=== PATIENT | female | born 1975 | race Caucasian/White ===

== ENCOUNTER 2023-07-26 15:18 | Outpatient (OUT) | payer OTHER, SELFPAY ==
[2023-07-26 15:53] LABS: Hematocrit 40.6 % (36.0-48.0); Hemoglobin 13.1 g/dL (12.0-16.0); Mean Corpuscular HGB Conc 32.3 g/dL (29.9-35.2); Mean Corpuscular Hemoglobin 28.5 pg (26.7-34.0); Mean Corpuscular Volume 88.5 fL (81.0-99.0); Mean Platelet Volume 9.3 fL (9.5-13.5); Platelet Count 482 10^3/uL (150-450); Red Blood Count 4.59 10^6/uL (4.20-5.40); Red Cell Distribution Width 14.2 % (11.0-15.0); White Blood Count 13.8 10^3/uL (4.0-11.0)
[2023-07-26 16:23] LABS: Bilirubin Urine NEGATIVE (NEGATIVE); Blood Urine LARGE (NEGATIVE); Clarity Urine CLOUDY (CLEAR); Color Urine DK. ORANGE (YELLOW); Glucose Urine UA NEGATIVE (NEGATIVE); Ketones Urine TRACE mg/dL (NEGATIVE); Leukocyte Esterase Urine TRACE (NEGATIVE); Nitrite Urine NEGATIVE (NEGATIVE); Protein Urine 30 mg/dL (NEG/TRACE); Specific Gravity Urine >=1.030 (1.005-1.025)
[2023-07-26 16:24] LABS: Atypical Lymphocytes Abs Man 0.69; Eosinophils Absolute Manual 0.41 10^3/uL (0.00-0.70); Monocytes Absolute Manual 0.41 10^3/uL (0.30-0.80); Segmented Neut Absolute Manual 7.17 10^3/uL (1.4-6.5)
[2023-07-26 16:25] LABS: Urine Microscopic Indicated YES
[2023-07-26 16:27] LABS: Estimated Average Glucose 126 mg/dL
[2023-07-26 16:36] LABS: Creatinine Urine Random 229.13 mg/dL (20.00-300.00); Microalbum Creatinine Ratio Ur 51.9 mg/g (0.0-29.9); Microalbumin Urine Random 11.9 mg/dL (<=30.0)
[2023-07-26 16:46] LABS: Alanine Aminotransferase 38 U/L (14-59); Albumin Globulin Ratio 1.1; Albumin Level 4.2 g/dL (3.4-5.0); Alkaline Phosphatase 122 U/L (46-116); Anion Gap 14.9; Aspartate Amino Transferase 28 U/L (15-37); Bilirubin Total 0.3 mg/dL (0.2-1.0); Calcium 9.8 mg/dL (8.5-10.1); Carbon Dioxide 23.1 mmol/L (21.0-32.0); Chloride 102 mmol/L (98-107); Chol HDL Ratio 6.1; Cholesterol 257 mg/dL (<=200); Estimated GFR (African America >60 (>=60); Estimated GFR (Non-African Ame >60 (>=60); Globulin 3.9 g/dL; Glucose 81 mg/dL (74-106); HDL Cholesterol 42 mg/dL (40-60); Sodium 136 mmol/L (136-145); Thyroid Stimulating Hormone 0.924 uIU/mL (0.358-3.740); Total Protein 8.1 g/dL (6.4-8.2); Triglycerides 216 mg/dL (<=150); VLDL CHOLESTEROL 43.2 mg/dL
[2023-07-26 16:50] LABS: Bacteria Urine TRACE #/HPF (NONE SEEN); Cast Seen? NONE SEEN #/LPF (NONE SEEN); Crystals Seen? None Seen #/HPF (None Seen); Mucus Urine NONE SEEN (NONE SEEN); RBC Urine 50-75 #/HPF (0-2); Squamous Epithelial Cell Urine RARE #/LPF (NONE/RARE)
== END 2023-07-26 15:19 | disposition home or self-care (01) ==
LOC: LAB 15:21
PROVIDERS: PCP Nurse Practitioner; Visit Provider Nurse Practitioner
DX: D64.9 Anemia, unspecified (principal); I10 Essential (primary) hypertension; F17.200 Nicotine dependence, unspecified, uncomplicated; E53.8 Deficiency of other specified B group vitamins; K21.9 Gastro-esophageal reflux disease without esophagitis; E55.9 Vitamin D deficiency, unspecified; E11.9 Type 2 diabetes mellitus without complications; F41.9 Anxiety disorder, unspecified
CPT/HCPCS: 36415; 80053; 80061; 81001; 82043; 82570; 82607; 83036; 83540; 84443; 85007; 85027

== ENCOUNTER 2023-09-17 16:43 | Outpatient (OUT) | payer OTHER, SELFPAY ==
[2023-09-17 17:06] LABS: Bilirubin Urine NEGATIVE (NEGATIVE); Blood Urine LARGE (NEGATIVE); Clarity Urine CLEAR (CLEAR); Color Urine LT. YELLOW (YELLOW); Glucose Urine UA NEGATIVE (NEGATIVE); Ketones Urine NEGATIVE (NEGATIVE); Leukocyte Esterase Urine SMALL (NEGATIVE); Nitrite Urine NEGATIVE (NEGATIVE); Protein Urine NEGATIVE (NEG/TRACE); Urobilinogen Urine 0.2 EU/dL (0.2-1.0)
[2023-09-17 17:21] LABS: Urine Microscopic Indicated YES
[2023-09-17 17:22] LABS: Bacteria Urine TRACE #/HPF (NONE SEEN); Cast Seen? NONE SEEN #/LPF (NONE SEEN); Crystals Seen? None Seen #/HPF (None Seen); Mucus Urine TRACE (NONE SEEN); RBC Urine 20-50 #/HPF (0-2); Squamous Epithelial Cell Urine FEW #/LPF (NONE/RARE); Urine Culture Indicated YES
[2023-09-17 17:38] LABS: Alanine Aminotransferase 21 U/L (14-59); Albumin Globulin Ratio 0.9; Albumin Level 3.6 g/dL (3.4-5.0); Alkaline Phosphatase 132 U/L (46-116); Anion Gap 15.4; Aspartate Amino Transferase 14 U/L (15-37); BUN Creatinine Ratio 12.1; Bilirubin Total 0.2 mg/dL (0.2-1.0); Calcium 9.2 mg/dL (8.5-10.1); Carbon Dioxide 23.1 mmol/L (21.0-32.0); Chloride 103 mmol/L (98-107); Cholesterol 184 mg/dL (<=200); Estimated GFR (African America >60 (>=60); Estimated GFR (Non-African Ame >60 (>=60); Glucose 143 mg/dL (74-106); HDL Cholesterol 37 mg/dL (40-60); Potassium 3.5 mmol/L (3.5-5.1); Sodium 138 mmol/L (136-145); Total Protein 7.6 g/dL (6.4-8.2); Triglycerides 166 mg/dL (<=150); VLDL CHOLESTEROL 33.2 mg/dL
== END 2023-09-17 16:44 | disposition home or self-care (01) ==
LOC: LAB 16:45
PROVIDERS: PCP Nurse Practitioner; Visit Provider Nurse Practitioner
DX: R31.29 Other microscopic hematuria (principal); E78.2 Mixed hyperlipidemia
CPT/HCPCS: 36415; 80053; 80061; 81001; 87086

== ENCOUNTER 2023-09-24 07:36 | Outpatient (OUT) | payer OTHER, SELFPAY ==
--- NOTE | 2023-09-24 07:39 | MM_ITS ---
Patient Name: JAIME BURTON MR#: [id number] : 1975 Exam Date: 09/24/2023 Ordering Doctor: ARELY GUERRERO CNP RADIOLOGY REPORT PROCEDURE: MM TOMOSYNTHESIS SCREENING BI COMPARISON: MG MAMM SCREEN 3D STEVE CAD, 06/03/2021. INDICATIONS: Screening for malignancy Calculator Name NCI Breast Cancer Risk Assessment Tool 5 Year Breast Cancer Risk 0.70% Lifetime Breast Cancer Risk 6.70% Personal Breast Cancer No Personal Ovarian Cancer No Treatments None Family Cancers Father with unknown cancer at age 55; Grandmother-maternal with lymphoma cancer at age 63. LOCATION: [facility] [place] BREAST COMPOSITION: The breasts are heterogeneously dense,which may obscure small masses. FINDINGS: DIAGNOSTIC CATEGORY 1--NEGATIVE. RIGHT BREAST: No significant suspicious finding. No significant change has occurred. LEFT BREAST: No significant suspicious finding. No significant change has occurred. RECOMMENDATIONS: ROUTINE MAMMOGRAM AND CLINICAL EVALUATION IN 12 MONTHS. PLEASE NOTE: A NORMAL MAMMOGRAM DOES NOT EXCLUDE THE POSSIBILITY OF BREAST CANCER. A CLINICALLY SUSPICIOUS PALPABLE LUMP SHOULD BE BIOPSIED. Dictated by: Evan Jackson M.D. on 09/25/2023 at 15:07 Approved by: Evan Jackson M.D. on 09/25/2023 at 15:18
== END 2023-09-24 07:37 | disposition home or self-care (01) ==
LOC: MAMMO 07:36
PROVIDERS: PCP Nurse Practitioner; Visit Provider Nurse Practitioner
DX: Z12.31 Encounter for screening mammogram for malignant neoplasm of breast (principal)
CPT/HCPCS: 77063; 77067

== ENCOUNTER 2023-10-02 23:53 | Emergency (ER) | payer OTHER, SELFPAY ==
[2023-10-03 00:06] VITALS: BP 135/93; PULSE 117; TEMP 36.8; O2SAT 97; BMI 22.6
--- NOTE | 2023-10-03 00:15 | PC.NURSE ---
Right upper and mid back pain started yesterday after moving furniture. today it has been painful to move and breathe. She has taken her prescribed Baclofen and Gabapentin with no relief. She states that she really just needs a work note
--- NOTE | 2023-10-03 00:30 | ED.BACK1 ---
HPI HPI - Back Pain/Injury General Chief Complaint: Back Pain/Injury Stated Complaint: BACK PAIN Time Seen by Provider: 10/03/23 00:03 Source: patient Mode of arrival: walk-in Limitations: no limitations History of Present Illness HPI Narrative: This 48-year-old female presents for evaluation of right upper back pain. The patient states she thinks that she strained her back while moving furniture and carrying 20 loads of laundry upstairs yesterday. The patient is currently moving to a new living arrangement. She denies any falls or injuries. The pain started earlier today. She states the pain feels like she broke a bunch of ribs but did not have any injury. There is no dillon chest pain. She denies any dillon shortness of breath but states she cannot take a deep breath because of the pain in her back. She denies any weakness or numbness. She does smoke. She has no abdominal pain. She has not been coughing. She has not had a fever. There is no lower extremity pain or swelling. She took her gabapentin and baclofen without significant improvement in her pain. 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 Related Data Home Medications ?Medication ?Instructions ?Recorded ?Confirmed albuterol sulfate 90 mcg/actuation 2 puff inhalation Q6H 10/03/23 10/03/23 aerosol inhaler atorvastatin 20 mg tablet 20 mg PO DAILY 10/03/23 10/03/23 cetirizine 10 mg tablet 10 mg PO DAILY 10/03/23 10/03/23 gabapentin 400 mg capsule 400 mg PO Q12H 10/03/23 10/03/23 losartan 50 mg tablet 50 mg PO DAILY 10/03/23 10/03/23 metoprolol tartrate 25 mg tablet 25 mg PO Q12H 10/03/23 10/03/23 omeprazole 40 mg capsule,delayed 40 mg PO DAILY 10/03/23 10/03/23 release tiotropium 2.5 mcg-olodaterol 2.5 2 inh inhalation Q24H 10/03/23 10/03/23 mcg/actuation mist for inhalation (Stiolto Respimat) Allergies Allergy/AdvReac Type Severity Reaction Status Date / Time erythromycin base Allergy Intermediate Vomiting Verified 10/03/23 00:02 latex Allergy Intermediate Hives Verified 10/03/23 00:02 methylprednisolone Allergy Intermediate Anaphylaxis Verified 10/03/23 00:02 [From Solu-Medrol] Opioid HPI Opioid Management Most Recent Opioid Data: No Data to Display Exam Constitutional Vital Signs, click to edit/add: Last Vital Signs Temp 98.3 F 10/03/23 00:06 Pulse 117 H 10/03/23 00:06 Resp 16 10/03/23 00:06 BP 135/93 H 10/03/23 00:06 Pulse Ox 97 10/03/23 00:06 O2 Del Method Room Air 10/03/23 00:06 Course Vital Signs Vital signs: Vital Signs Temperature 98.3 F 10/03/23 00:06 Pulse Rate 117 H 10/03/23 00:06 Respiratory Rate 16 10/03/23 00:06 Blood Pressure 135/93 H 10/03/23 00:06 Pulse Oximetry 97 10/03/23 00:06 Oxygen Delivery Method Room Air 10/03/23 00:06 Temperature 98.3 F 10/03/23 00:06 Pulse Rate 117 H 10/03/23 00:06 Respiratory Rate 16 10/03/23 00:06 Blood Pressure 135/93 H 10/03/23 00:06 Pulse Oximetry 97 10/03/23 00:06 Oxygen Delivery Method Room Air 10/03/23 00:06 MDM - Back Pain/Injury MDM Narrative Medical decision making narrative: Pt eloped from the ED prior to testing or medications being administered. Discharge Plan Discharge Stand Alone Forms: Portal Instructions Chief Complaint: Back Pain/Injury Clinical Impression: Back pain Patient Disposition: Left Against Medical Advice Prescriptions / Home Meds: No Action gabapentin 400 mg capsule 400 mg PO Q12H omeprazole 40 mg capsule,delayed release(DR/EC) 40 mg PO DAILY atorvastatin 20 mg tablet 20 mg PO DAILY albuterol sulfate 90 mcg/actuation HFA aerosol inhaler 2 puff INHALATION Q6H losartan 50 mg tablet 50 mg PO DAILY metoprolol tartrate 25 mg tablet 25 mg PO Q12H Stiolto Respimat 2.5-2.5 mcg/actuation mist 2 inh INHALATION Q24H cetirizine 10 mg tablet 10 mg PO DAILY Print Language: Kiswahili Referrals: Domi Altamirano HEALTH EDUCATION DIRECTOR [Primary Care Provider] - 1 week
== END 2023-10-03 00:45 | disposition left against medical advice (07) ==
PROVIDERS: Emergency Provider Emergency Medicine; PCP Nurse Practitioner
DX: Z53.21 Procedure and treatment not carried out due to patient leaving prior to being seen by health care provider (principal)
CPT/HCPCS: 80048; 85378

== ENCOUNTER 2023-10-03 01:02 | Emergency (ER) | payer OTHER, SELFPAY ==
[2023-10-03 01:03] VITALS: BP 165/95; PULSE 128; TEMP 36.9; O2SAT 97; BMI 22.6
--- NOTE | 2023-10-03 01:30 | ED.BACK1 ---
HPI HPI - Back Pain/Injury General Chief Complaint: Back Pain/Injury Stated Complaint: BACK PAIN Time Seen by Provider: 10/03/23 01:28 Source: patient Mode of arrival: walk-in Limitations: no limitations History of Present Illness HPI Narrative: 48-year-old female presents for evaluation of right upper back pain. She was seen earlier for the same complaints but eloped from the emergency department after my history and physical exam and before she received any medications. Her complaint is that she was moving furniture yesterday and injured her right upper back. She was noted to be tachycardic and has a history of tobacco use so routine labs including a D-dimer was ordered as the patient complained that she feels like her ribs are broken and she cannot take a deep breath without pain. On reevaluation she is still tachycardic with a pulse of 128, blood pressure is elevated at 165/95. She states that her blood pressure is elevated because she is mad at her boyfriend. Related Data Home Medications ?Medication ?Instructions ?Recorded ?Confirmed albuterol sulfate 90 mcg/actuation 2 puff inhalation Q6H 10/03/23 10/03/23 aerosol inhaler atorvastatin 20 mg tablet 20 mg PO DAILY 10/03/23 10/03/23 cetirizine 10 mg tablet 10 mg PO DAILY 10/03/23 10/03/23 gabapentin 400 mg capsule 400 mg PO Q12H 10/03/23 10/03/23 losartan 50 mg tablet 50 mg PO DAILY 10/03/23 10/03/23 metoprolol tartrate 25 mg tablet 25 mg PO Q12H 10/03/23 10/03/23 omeprazole 40 mg capsule,delayed 40 mg PO DAILY 10/03/23 10/03/23 release tiotropium 2.5 mcg-olodaterol 2.5 2 inh inhalation Q24H 10/03/23 10/03/23 mcg/actuation mist for inhalation (Stiolto Respimat) Allergies Allergy/AdvReac Type Severity Reaction Status Date / Time erythromycin base Allergy Intermediate Vomiting Verified 10/03/23 00:02 latex Allergy Intermediate Hives Verified 10/03/23 00:02 methylprednisolone Allergy Intermediate Anaphylaxis Verified 10/03/23 00:02 [From Solu-Medrol] Opioid HPI Opioid Management Most Recent Opioid Data: Last Pain Scale 8 10/03/23 01:49 Last MAR Pain Assessment 10/03/23 01:49 Review of Systems ROS Status of ROS 10 or more systems reviewed and unremarkable except as noted in history and below Exam Narrative Exam Narrative: Vital signs and Nursing Notes reviewed: Patient is afebrile, tachycardic with a pulse of 128 blood pressure is elevated at 165/95, she is not hypoxic with pulse ox of 97% on room air General: Awake, alert, oriented, no acute distress, lying comfortably on the stretcher, eating potato chips HEENT: Normocephalic atraumatic, mucous membranes are moist and pink, eyes are clear, normal conjunctiva, vision is grossly intact Neck: Supple, no meningeal signs, no anterior or posterior cervical lymphadenopathy Chest: Lungs are clear to auscultation with good air entry, there is no wheezing rhonchi or rales appreciated no accessory muscle use, patient is speaking in complete sentences-no chest wall tenderness to palpation CVS: Regular rate and rhythm S1-S2, no murmurs rubs or gallops, pulses are brisk and equal bilaterally ABD: Soft, nondistended, nontender, no rebound guarding or rigidity, bowel sounds are normal, no pulsatile masses appreciated Extremities: There is tenderness to the right mid to upper thoracic region, there is no midline bony vertebral tenderness or step-off. There is no skin rash in this area moving all extremities, no lower extremity tenderness or swelling noted, negative Homans' sign, pulses are brisk and equal bilaterally Skin: Normal in appearance without rash,pallor, petechiae or purpura Neuro: No focal deficits Constitutional Vital Signs, click to edit/add: Last Vital Signs Temp 98.5 F 10/03/23 01:03 Pulse 128 H 10/03/23 01:03 Resp 18 10/03/23 01:03 BP 165/95 H 10/03/23 01:03 Pulse Ox 97 10/03/23 01:03 O2 Del Method Room Air 10/03/23 01:03 Course Vital Signs Vital signs: Vital Signs Temperature 98.5 F 10/03/23 01:03 Pulse Rate 128 H 10/03/23 01:03 Respiratory Rate 18 10/03/23 01:03 Blood Pressure 165/95 H 10/03/23 01:03 Pulse Oximetry 97 10/03/23 01:03 Oxygen Delivery Method Room Air 10/03/23 01:03 Temperature 98.5 F 10/03/23 01:03 Pulse Rate 128 H 10/03/23 01:03 Respiratory Rate 18 10/03/23 01:03 Blood Pressure 165/95 H 10/03/23 01:03 Pulse Oximetry 97 10/03/23 01:03 Oxygen Delivery Method Room Air 10/03/23 01:03 MDM - Back Pain/Injury MDM Narrative Medical decision making narrative: This 48-year-old female, smoker, presents for evaluation of right upper thoracic back pain. The patient states that she is moving and yesterday carrying furniture and approximately 20 loads of laundry upstairs. Today she started having some pain in her upper back. She took a baclofen and gabapentin which is prescribed to her without relief. She has no focal neurologic symptoms. She states she feels like she cannot take a deep breath due to the pain. She was noted to be tachycardic upon arrival and due to her history of tobacco use, pain with deep inspiration and tachycardia I ordered a D-dimer, CBC with differential and comprehensive metabolic profile. Her CBC is mildly elevated at 14.8 without any sign of infection. D-dimer is normal. Electrolyte panel is normal with mild elevation in her alkaline phosphatase which is not unusual for her. She was medicated in the emergency department with IM Toradol, IM Norflex and a dose of [place]. X-ray of the thoracic spine was ordered and does not show any acute findings. She states she is feeling better after her treatment emergency department. She will be discharged home with a prescription for [place], ibuprofen and Norflex to use over the course of the next several days and a note for work for [employer]. Medical Records Medical records narrative: [place] [address] XRay Report Signed Patient: JAIME BURTON MR#: [id number] : 1975 Acct:[id number] Age/Sex: 48 / F ADM Date: 10/03/23 Loc: ER Attending Dr: Ordering Physician: Orly Rushing Date of Service: 10/03/23 Procedure(s): XR thoracic spine 3V Accession Number(s): [id number] cc: Domi Altamirano NP; Orly Rushing~ The [place] [id number] [phone] Patient Name: JAIME BURTON MRN: [id number] date: 1975 Sex: F Assigned Patient Location: ER Current Patient Location: ED.MAIN Accession/Order Number: [id number] Exam Date: 10/03/2023 02:20 Report Date: 10/03/2023 03:03 At the request of: ORLY MARKER Procedure: XR thoracic spine 3V EXAM: XR thoracic spine 3V HISTORY: right sided upper back pain COMPARISON: None. TECHNIQUE: Frontal and lateral radiographs obtained. FINDINGS: Lateral view suboptimal due to motion. Overall, normal height and alignment of vertebrae. No fractures are seen. Normal bone mineralization. Normal pedicles. Endplates are intact with preserved disc heights. Prevertebral paraspinal soft tissues are unremarkable. Normal heart size. XR/XR thoracic spine 3V IMPRESSION: No acute findings. Electronically authenticated by: LUIS SALEH Date: 10/03/2023 03:0 Lab Data Attestation: I reviewed the patient's lab results. Labs: Lab Results 10/03/23 Range/Units 01:30 WBC 14.6 H (4.0-11.0) 10^3/uL RBC 4.48 (4.20-5.40) 10^6/uL Hgb 12.3 (12.0-16.0) g/dL Hct 39.3 (36.0-48.0) % MCV 87.7 (81.0-99.0) fL MCH 27.5 (26.7-34.0) pg MCHC 31.3 (29.9-35.2) g/dL RDW 13.7 (11.0-15.0) % Plt Count 490 H (150-450) 10^3/uL MPV 9.0 L (9.5-13.5) fL Seg Neuts % (Manual) 56.0 Lymphocytes % (Manual) 26.0 (20.5-60.0) % Atypical Lymphs % (Man) 12.0 % Monocytes % (Manual) 4.0 (1.7-12.0) % Eosinophils % (Manual) 3.0 (0.9-7.0) % Basophils % (Manual) 0.0 L (0.2-2.0) % Neutrophils # (Manual) 8.17 H (1.4-6.5) 10^3/uL Lymphocytes # (Manual) 3.79 (1.20-3.80) 10^3/uL Abs Atypical Lymphs Man 1.75 Monocytes # (Manual) 0.58 (0.30-0.80) 10^3/uL Eosinophils # (Manual) 0.43 (0.00-0.70) 10^3/uL Basophils # (Manual) 0.00 (0.00-0.10) 10^3/uL D-Dimer 0.36 (<=0.59) mg/L FEU Sodium 136 (136-145) mmol/L Potassium 3.6 (3.5-5.1) mmol/L Chloride 102 (98-107) mmol/L Carbon Dioxide 23.9 (21.0-32.0) mmol/L Anion Gap 13.7 BUN 10.0 (7.0-18.0) mg/dL Creatinine 0.77 (0.55-1.02) mg/dL Est GFR ( Amer) >60 (>=60) Est GFR (Non-Af Amer) >60 (>=60) BUN/Creatinine Ratio 13.0 Glucose 135 H (74-106) mg/dL Calcium 8.7 (8.5-10.1) mg/dL Total Bilirubin 0.2 (0.2-1.0) mg/dL AST 20 (15-37) U/L ALT 33 (14-59) U/L Alkaline Phosphatase 171 H (46-116) U/L Total Protein 8.1 (6.4-8.2) g/dL Albumin 3.5 (3.4-5.0) g/dL Globulin 4.6 g/dL Albumin/Globulin Ratio 0.8 Discharge Plan Discharge Stand Alone Forms: Portal Instructions Chief Complaint: Back Pain/Injury Clinical Impression: Thoracic back pain Patient Disposition: Home, Self-Care Time of Disposition Decision: 02:43 Condition: Good Prescriptions / Home Meds: No Action gabapentin 400 mg capsule 400 mg PO Q12H omeprazole 40 mg capsule,delayed release(DR/EC) 40 mg PO DAILY atorvastatin 20 mg tablet 20 mg PO DAILY albuterol sulfate 90 mcg/actuation HFA aerosol inhaler 2 puff INHALATION Q6H losartan 50 mg tablet 50 mg PO DAILY metoprolol tartrate 25 mg tablet 25 mg PO Q12H Stiolto Respimat 2.5-2.5 mcg/actuation mist 2 inh INHALATION Q24H cetirizine 10 mg tablet 10 mg PO DAILY Print Language: Portuguese Referrals: Domi Altamirano NP [Primary Care Provider] - 1 week Discharge Date/Time: 10/03/23 03:05
[2023-10-03 01:47] LABS: Hematocrit 39.3 % (36.0-48.0); Hemoglobin 12.3 g/dL (12.0-16.0); Mean Corpuscular HGB Conc 31.3 g/dL (29.9-35.2); Mean Corpuscular Hemoglobin 27.5 pg (26.7-34.0); Mean Corpuscular Volume 87.7 fL (81.0-99.0); Platelet Count 490 10^3/uL (150-450); Red Blood Count 4.48 10^6/uL (4.20-5.40); Red Cell Distribution Width 13.7 % (11.0-15.0); White Blood Count 14.6 10^3/uL (4.0-11.0)
[2023-10-03] MEDS: ORPHENADRINE 60 MG/ 2 ML VIAL IM (01:48)
[2023-10-03] MEDS: HYDROCODONE/ACET 5-325 MG TABLET 1 TAB PO (01:48)
[2023-10-03] MEDS: KETOROLAC TROMETHAMINE 60 MG/2 ML VIAL IM (01:49)
[2023-10-03 02:00] LABS: D Dimer 0.36 mg/L FEU (<=0.59)
[2023-10-03 02:02] LABS: Alanine Aminotransferase 33 U/L (14-59); Albumin Globulin Ratio 0.8; Albumin Level 3.5 g/dL (3.4-5.0); Alkaline Phosphatase 171 U/L (46-116); Anion Gap 13.7; Aspartate Amino Transferase 20 U/L (15-37); Bilirubin Total 0.2 mg/dL (0.2-1.0); Calcium 8.7 mg/dL (8.5-10.1); Carbon Dioxide 23.9 mmol/L (21.0-32.0); Chloride 102 mmol/L (98-107); Estimated GFR (African America >60 (>=60); Estimated GFR (Non-African Ame >60 (>=60); Globulin 4.6 g/dL; Glucose 135 mg/dL (74-106); Potassium 3.6 mmol/L (3.5-5.1); Sodium 136 mmol/L (136-145); Total Protein 8.1 g/dL (6.4-8.2)
[2023-10-03 02:05] LABS: Atypical Lymphocytes Abs Man 1.75; Eosinophils Absolute Manual 0.43 10^3/uL (0.00-0.70); Lymphocytes Absolute Manual 3.79 10^3/uL (1.20-3.80); Monocytes Absolute Manual 0.58 10^3/uL (0.30-0.80); Segmented Neut Absolute Manual 8.17 10^3/uL (1.4-6.5)
--- NOTE | 2023-10-03 02:09 | XR_ITS ---
[address] [address] Patient Name: JAIME BURTON MRN: [id number] date: 1975 Sex: F Assigned Patient Location: ER Current Patient Location: ED.MAIN Accession/Order Number: [id number] Exam Date: 10/03/2023 02:20 Report Date: 10/03/2023 03:03 At the request of: VERONICA MARKER Procedure: XR thoracic spine 3V EXAM: XR thoracic spine 3V HISTORY: right sided upper back pain COMPARISON: None. TECHNIQUE: Frontal and lateral radiographs obtained. FINDINGS: Lateral view suboptimal due to motion. Overall, normal height and alignment of vertebrae. No fractures are seen. Normal bone mineralization. Normal pedicles. Endplates are intact with preserved disc heights. Prevertebral paraspinal soft tissues are unremarkable. Normal heart size. XR/XR thoracic spine 3V IMPRESSION: No acute findings. Electronically authenticated by: LUIS SALEH Date: 10/03/2023 03:03
--- NOTE | 2023-10-03 03:08 | PC.NURSE ---
Patient returns to E after leaving AMA. She states that she was arguing with the man that she was with and she needed to leave. She started to walk home before deciding to return to ED for treatment. Complaints are the same and unchanged from prior visit today
== END 2023-10-03 03:05 | disposition home or self-care (01) ==
PROVIDERS: Emergency Provider Emergency Medicine; PCP Nurse Practitioner
DX: M54.6 Pain in thoracic spine (principal); Z87.891 Personal history of nicotine dependence
CPT/HCPCS: 36415; 72072; 80053; 85007; 85027; 85378; 96372; 99284; J1885; J2360

== ENCOUNTER 2023-10-08 18:14 | Outpatient (OUT) | payer OTHER, SELFPAY ==
--- NOTE | 2023-10-08 | US_ITS ---
The [address] [address] Patient Name: JAIME BURTON MRN: [id number] date: 1975 Sex: F Assigned Patient Location: US Current Patient Location: Accession/Order Number: [id number] Exam Date: 10/08/2023 18:28 Report Date: 10/09/2023 07:06 At the request of: MISSY HOWARD Procedure: US pelvis transvaginal EXAMINATION: US pelvis transvaginal HISTORY: ABNORMAL UTERINE BLEEDING N93.9 COMPARISON: No relevant comparison available. FINDINGS: Transvaginal images The uterus is normal in size and contour measuring 7.7 x 4.4 x 4.0 cm. 3 mm echogenic focus with acoustic shadowing likely representing myometrial calcification Endometrium measures 8 mm, normal. Area of anechoic echogenicity cervix measuring 1.2 cm, nabothian cyst is favored The right ovary is normal measuring 3.1 x 2.2 x 2.1 cm. Normal color and Doppler flow The left ovary is normal measuring 2.3 x 1.7 x 1.4 cm. Normal color and Doppler flow No free fluid US/US pelvis transvaginal IMPRESSION: No acute abnormality Electronically authenticated by: JOAO BARBOSA Date: 10/09/2023 07:06
== END 2023-10-08 18:15 | disposition home or self-care (01) ==
PROVIDERS: PCP Nurse Practitioner; Visit Provider Nurse Practitioner Obstetrics & Gynecology
DX: N93.9 Abnormal uterine and vaginal bleeding, unspecified (principal)
CPT/HCPCS: 76830

== ENCOUNTER 2023-12-17 12:57 | Emergency (ER) | payer SELFPAY ==
[2023-12-17] VITALS (12 sets, daily range): BP systolic 146–147; BP diastolic 96–101; PULSE 115–144; TEMP 36.9; O2SAT 93–99; BMI 22.6
--- NOTE | 2023-12-17 13:17 | ECG_ITS ---
The [facility] Test Date: 2023-12-17 Pat Name: JAIME BURTON Department: Room: - Gender: Female Optometry Doctor: : 1975 Requested By: MISSY GUERRERO Order Number: [id number] Reading MD: RAYMOND IGLESIAS Measurements Intervals [place] Rate: 132 P: 58 WV: 134 QRS: 56 QRSD: 66 T: 70 QT: 290 QTc: 368 Interpretive Statements 1120 Sinus tachycardia 9140 abnormal rhythm ECG Compared to ECG 11/29/2021 19:11:27 No significant changes Electronically Signed On 12-17-2023 22:39:00 EDT by RAYMOND IGLESIAS
--- NOTE | 2023-12-17 13:17 | XR_ITS ---
The [address] [address] Patient Name: JAIME BURTON MRN: [id number] date: 1975 Sex: F Assigned Patient Location: ER Current Patient Location: ER Accession/Order Number: [id number] Exam Date: 12/17/2023 13:26 Report Date: 12/17/2023 13:34 At the request of: ANTONIO NEVES Procedure: XR chest 1V EXAMINATION: XR chest 1V HISTORY: cough, SOB COMPARISON: 11/29/2021 TECHNIQUE: AP portable FINDINGS: LUNGS: Stable well-circumscribed left midlung lateral nodule. No new focal parenchymal infiltrates VASCULATURE: No increased pulmonary vasculature. PLEURA: No pneumothorax, effusion, or pleural thickening. CARDIAC: No cardiomegaly or cardiac silhouette abnormality. MEDIASTINUM: No visible mass or adenopathy. BONES: No fracture or visible bone lesion. OTHER: Negative. XR/XR chest 1V IMPRESSION: No acute cardiopulmonary process Electronically authenticated by: JOAO BARBOSA Date: 12/17/2023 13:34
--- NOTE | 2023-12-17 13:20 | ED.SOB1 ---
HPI - SOB/Dyspnea General Chief Complaint: Shortness of Breath/Dyspnea Stated Complaint: COLD, FEVER Time Seen by Provider: 12/17/23 13:16 Source: patient Mode of arrival: walk-in Limitations: no limitations History of Present Illness HPI Narrative: 48 year old female presents to the ED for cough, sinus and chest congestion, SOB. Onset was about 2 weeks ago. Reports her sx became worse yesterday. She completed a course of steroids yesterday morning. Denies fever, chills, edema. She has hx asthma, COPD. She is currently taking Cefdinir. Known history of: COPD and asthma Related Data Home Medications ?Medication ?Instructions ?Recorded ?Confirmed albuterol sulfate 90 mcg/actuation 2 puff inhalation Q6H 10/03/23 10/03/23 aerosol inhaler atorvastatin 20 mg tablet 20 mg PO DAILY 10/03/23 10/03/23 cetirizine 10 mg tablet 10 mg PO DAILY 10/03/23 10/03/23 gabapentin 400 mg capsule 400 mg PO Q12H 10/03/23 10/03/23 losartan 50 mg tablet 50 mg PO DAILY 10/03/23 10/03/23 metoprolol tartrate 25 mg tablet 25 mg PO Q12H 10/03/23 10/03/23 omeprazole 40 mg capsule,delayed 40 mg PO DAILY 10/03/23 10/03/23 release tiotropium 2.5 mcg-olodaterol 2.5 2 inh inhalation Q24H 10/03/23 10/03/23 mcg/actuation mist for inhalation (Stiolto Respimat) Previous Rx's ?Medication ?Instructions ?Recorded azithromycin 250 mg tablet See Rx Instructions PO .COMPLEX #6 12/17/23 (Zithromax Z-Romeo) tabs prednisone 10 mg tablet See Rx Instructions .Route 12/17/23 .COMPLEX #30 tabs Allergies Allergy/AdvReac Type Severity Reaction Status Date / Time latex Allergy Intermediate Hives Verified 12/17/23 13:08 methylprednisolone Allergy Intermediate Anaphylaxis Verified 12/17/23 13:08 [From Solu-Medrol] erythromycin base AdvReac Intermediate Vomiting Verified 12/17/23 13:16 Review of Systems ROS Constitutional Denies: fever or chills Ears, nose, mouth, and throat Reports: nasal discharge and nasal congestion; Denies: throat pain, neck pain, ear pain or ear discharge Cardiovascular Denies: chest pain Respiratory Reports: shortness of breath, cough and wheezing Gastrointestinal Denies: abdominal pain, nausea, vomiting or diarrhea Musculoskeletal Denies: back pain Integumentary/Breast Denies: rash Neurological Denies: headache or dizziness PFSH PFSH Social History Little interest or pleasure in doing things: not at all Feeling down, depressed, or hopeless: not at all Exam Constitutional Vital Signs, click to edit/add: Last Vital Signs Temp 98.5 F 12/17/23 13:03 Pulse 116 H 12/17/23 15:10 Resp 20 12/17/23 15:10 BP 146/101 H 12/17/23 13:20 Pulse Ox 93 L 12/17/23 14:50 O2 Del Method Room Air 12/17/23 13:30 Common normals: oriented x3 General appearance: cooperative HENMT Common normals: normocephalic Face and sinus: normal facial exam Nose: external nose normal External ear: external ears normal Mouth: oral and palatal mucosa normal, lip normal and tongue normal Throat: posterior oropharynx normal and uvula midline Eye Common normals: conjunctivae normal and no scleral icterus Neck & C-Spine Common normals: supple Chest Chest: symmetrical chest wall rise Respiratory Common normals: no use of accessory muscles Effort & inspection: able to speak in complete sentences, symmetric chest movement and tachypneic Auscultation: diminished lung sounds Cardio Common normals: regular rhythm Rate: tachycardic Neuro Common normals: oriented x3 Sensorium/orientation: awake and alert Speech: speech normal Course Vital Signs Vital signs: Vital Signs Temperature 98.5 F 12/17/23 13:03 Pulse Rate 137 H 12/17/23 13:03 Respiratory Rate 26 H 12/17/23 13:03 Blood Pressure 147/96 H 12/17/23 13:03 Pulse Oximetry 96 12/17/23 13:03 Oxygen Delivery Method Room Air 12/17/23 13:03 Temperature 98.5 F 12/17/23 13:03 Pulse Rate 116 H 12/17/23 15:10 Respiratory Rate 20 12/17/23 15:10 Blood Pressure 146/101 H 12/17/23 13:20 Pulse Oximetry 93 L 12/17/23 14:50 Oxygen Delivery Method Room Air 12/17/23 13:30 MDM - SOB/Dyspnea MDM Narrative Medical decision making narrative: Covid-19 was negative. Chest x-ray showed no acute findings. WBC count was 28.5; the patient finished a course of prednisone yesterday. She was given albuterol, IV Decadron, and IV magnesium with improvement. She reported she was comfortable being discharged home. She is currently taking Cefdinir. Prescriptions were provided for Zithromax and prednisone. Follow up with pcp for a recheck, further evaluation and treatment. Return precautions were discussed. Differential Diagnosis Differential diagnosis: Likely acute exacerbation of chronic obstructive airways disease, community acquired pneumonia and asthma with exacerbation Medical Records Attestation: I reviewed the patient's medical records. Lab Data Attestation: I reviewed the patient's lab results. Labs: Lab Results 12/17/23 12/17/23 Range/Units 13:13 13:20 WBC 28.5 H (4.0-11.0) 10^3/uL RBC 4.14 L (4.20-5.40) 10^6/uL Hgb 10.6 L (12.0-16.0) g/dL Hct 32.8 L (36.0-48.0) % MCV 79.2 L (81.0-99.0) fL MCH 25.6 L (26.7-34.0) pg MCHC 32.3 (29.9-35.2) g/dL RDW 16.3 H (11.0-15.0) % Plt Count 692 H (150-450) 10^3/uL MPV 8.7 L (9.5-13.5) fL Seg Neuts % (Manual) 60.0 (43.0-75.0) Band Neutrophils % 2.0 (0-5) % Lymphocytes % (Manual) 37.0 (20.5-60.0) % Monocytes % (Manual) 1.0 L (1.7-12.0) % Eosinophils % (Manual) 0.0 L (0.9-7.0) % Basophils % (Manual) 0.0 L (0.2-2.0) % Neutrophils # (Manual) 17.10 H (1.4-6.5) 10^3/uL Band Neutrophils # 0.6 H (0.0-0.3) 10^3/uL Lymphocytes # (Manual) 10.54 H (1.20-3.80) 10^3/uL Monocytes # (Manual) 0.28 L (0.30-0.80) 10^3/uL Eosinophils # (Manual) 0.00 (0.00-0.70) 10^3/uL Basophils # (Manual) 0.00 (0.00-0.10) 10^3/uL Sodium 136 (136-145) mmol/L Potassium 3.9 (3.5-5.1) mmol/L Chloride 100 (98-107) mmol/L Carbon Dioxide 26.6 (21.0-32.0) mmol/L Anion Gap 13.3 BUN 18.0 (7.0-18.0) mg/dL Creatinine 0.75 (0.55-1.02) mg/dL Est GFR ( Amer) >60 (>=60) Est GFR (Non-Af Amer) >60 (>=60) BUN/Creatinine Ratio 24.0 Glucose 96 (74-106) mg/dL Calcium 9.0 (8.5-10.1) mg/dL NT-Pro-B Natriuret Pep 69.0 (<=450.0) pg/mL SARS-CoV-2 Ag (CV2AG) Negative (NEGATIVE) Imaging Data Chest x-ray: Attestation: I have reviewed the pertinent imaging results. Radiologist's impression: ITS Impressions Chest X-Ray 12/17/23 13:17 IMPRESSION: No acute cardiopulmonary process Electronically authenticated by: JOAO BARBOSA Date: 12/17/2023 13:34 ECG Data Attestation: ?I have reviewed the pertinent ECG results. (EKG was reviewed by the attending physician. It showed sinus tachycardia at a rate of 132.) Interpretation: Measurements Intervals Ocate Rate: 132 P: 58 RI: 134 QRS: 56 QRSD: 66 T: 70 QT: 290 QTc: 368 Interpretive Statements 1120 Sinus tachycardia 9140 abnormal rhythm ECG No previous ECG available for comparison Discharge Plan Discharge Chief Complaint: Shortness of Breath/Dyspnea Clinical Impression: COPD exacerbation Patient Disposition: Home, Self-Care Time of Disposition Decision: 15:10 Condition: Good Mode of Transportation: Private Vehicle Prescriptions / Home Meds: New azithromycin [Zithromax Z-Romeo] 250 mg tablet See Rx Instructions .ROUTE .COMPLEX Qty: 6 0RF Rx Instructions: For 250 mg dose pack: take 500 mg today (day 1), then 250 mg for 4 days (days 2-5) prednisone 10 mg tablet See Rx Instructions .ROUTE .COMPLEX Qty: 30 0RF Rx Instructions: Take 5 tablets on days 1-2, 4 tabs on days 3-4, 3 tabs on days 5-6, 2 tabs on days 7-8, 1 tab on days 9-10. No Action gabapentin 400 mg capsule 400 mg PO Q12H omeprazole 40 mg capsule,delayed release(DR/EC) 40 mg PO DAILY atorvastatin 20 mg tablet 20 mg PO DAILY albuterol sulfate 90 mcg/actuation HFA aerosol inhaler 2 puff INHALATION Q6H losartan 50 mg tablet 50 mg PO DAILY metoprolol tartrate 25 mg tablet 25 mg PO Q12H Stiolto Respimat 2.5-2.5 mcg/actuation mist 2 inh INHALATION Q24H cetirizine 10 mg tablet 10 mg PO DAILY Print Language: Jordanian Instructions: COPD (Chronic Obstructive Pulmonary Disease) (ED) Additional Instructions: Return to the ER for new or worsening symptoms. Referrals: Domi Altamirano NP [Primary Care Provider] - 1 week Discharge Date/Time: 12/17/23 15:30
[2023-12-17] MEDS: ALBUTEROL SULFATE 2.5 MG/3 ML VIAL NEB IH (13:31)
[2023-12-17 13:47] LABS: Hematocrit 32.8 % (36.0-48.0); Hemoglobin 10.6 g/dL (12.0-16.0); Mean Corpuscular HGB Conc 32.3 g/dL (29.9-35.2); Mean Corpuscular Hemoglobin 25.6 pg (26.7-34.0); Mean Corpuscular Volume 79.2 fL (81.0-99.0); Mean Platelet Volume 8.7 fL (9.5-13.5); Platelet Count 692 10^3/uL (150-450); Red Blood Count 4.14 10^6/uL (4.20-5.40); Red Cell Distribution Width 16.3 % (11.0-15.0); White Blood Count 28.5 10^3/uL (4.0-11.0)
[2023-12-17 13:59] LABS: Internal Control Within Normal Limits; SARS-CoV-2 Ag NEGATIVE (NEGATIVE)
[2023-12-17 14:11] LABS: Anion Gap 13.3; Carbon Dioxide 26.6 mmol/L (21.0-32.0); Chloride 100 mmol/L (98-107); Estimated GFR (African America >60 (>=60); Estimated GFR (Non-African Ame >60 (>=60); Glucose 96 mg/dL (74-106); Potassium 3.9 mmol/L (3.5-5.1); Sodium 136 mmol/L (136-145)
[2023-12-17] MEDS: MAGNESIUM SULFATE IN WATER 2 GM/50 ML PREMIX IV (14:32)
[2023-12-17] MEDS: DEXAMETHASONE SOD PHOS 10 MG/ML VIAL IV (14:32)
[2023-12-17 14:40] LABS: Band Neutrophils Absolute 0.6 10^3/uL (0.0-0.3); Lymphocytes Absolute Manual 10.54 10^3/uL (1.20-3.80); Monocytes Absolute Manual 0.28 10^3/uL (0.30-0.80)
== END 2023-12-17 15:30 | disposition home or self-care (01) ==
PROVIDERS: Nurse Practitioner Family; Emergency Provider Emergency Medicine; PCP Nurse Practitioner
DX: J44.1 Chronic obstructive pulmonary disease with (acute) exacerbation (principal); Z20.822 Contact with and (suspected) exposure to COVID-19; R06.02 Shortness of breath; F17.210 Nicotine dependence, cigarettes, uncomplicated
CPT/HCPCS: 36415; 71045; 80048; 83880; 85007; 85027; 87811; 93005; 94640; 96365; 96375; 99285; 99406; J1100; J3475

== ENCOUNTER 2023-12-29 09:44 | Emergency (ER) | payer SELFPAY ==
[2023-12-29 09:54] VITALS: BP 154/100; PULSE 129; TEMP 36.7; O2SAT 98; BMI 22.6
--- NOTE | 2023-12-29 10:06 | XR_ITS ---
The [address] [address] Patient Name: JAIME BURTON MRN: [id number] date: 1975 Sex: F Assigned Patient Location: ER Current Patient Location: ED.MAIN Accession/Order Number: [id number] Exam Date: 12/29/2023 10:31 Report Date: 12/29/2023 12:20 At the request of: GENET NAM Procedure: XR chest 1V EXAM: XR chest 1V at 1024 hours HISTORY: cough COMPARISON: 12/17/2023 TECHNIQUE: AP upright portable chest x-ray FINDINGS: The heart is not enlarged and the vasculature is not distended. No acute infiltrate, effusion or pneumothorax is identified. Again seen is a small nodule in the left mid lung laterally, which appears slightly larger in size. The osseous structures are grossly intact. XR/XR chest 1V IMPRESSION: No acute infiltrate or evidence of cardiac decompensation. The faint nodular structure in the mid left lung laterally appears slightly larger in size, although the differences may be related to technique. The patient had a previous CT study of the chest performed 06/03/2021 which reported a stable nodule in the left lung. Perhaps a follow-up CT study of the chest at this time would be prudent. Electronically authenticated by: SILVER MERAZ Date: 12/29/2023 12:20
--- NOTE | 2023-12-29 10:14 | ED.URI1 ---
HPI - URI/Sore Throat General Chief Complaint: Upper Respiratory Infection Stated Complaint: URTI COMPLAINTS Time Seen by Provider: 12/29/23 09:59 Source: patient Limitations: no limitations History of Present Illness HPI Narrative: 48-year-old female presents for a 1 month history of cough and shortness of breath. She seen her family doctor and was seen in this emergency department. She had negative COVID test and was put on prednisone and Zithromax. 3 weeks ago she lost her voice. Her cough has been nonproductive and she has not had fever or hemoptysis. Related Data Home Medications ?Medication ?Instructions ?Recorded ?Confirmed albuterol sulfate 90 mcg/actuation 2 puff inhalation Q6H 10/03/23 12/29/23 aerosol inhaler atorvastatin 20 mg tablet 20 mg PO DAILY 10/03/23 12/29/23 cetirizine 10 mg tablet 10 mg PO DAILY 10/03/23 12/29/23 gabapentin 400 mg capsule 400 mg PO Q12H 10/03/23 12/29/23 losartan 50 mg tablet 50 mg PO DAILY 10/03/23 12/29/23 omeprazole 40 mg capsule,delayed 40 mg PO DAILY 10/03/23 12/29/23 release tiotropium 2.5 mcg-olodaterol 2.5 2 inh inhalation Q24H 10/03/23 12/29/23 mcg/actuation mist for inhalation (Stiolto Respimat) Previous Rx's ?Medication ?Instructions ?Recorded benzonatate 100 mg capsule 100 mg PO TID PRN cough #20 caps 12/29/23 doxycycline hyclate 100 mg capsule 100 mg PO BID 10 days #20 caps 12/29/23 prednisone 10 mg tablet See Rx Instructions .Route 12/29/23 .COMPLEX #30 tabs Allergies Allergy/AdvReac Type Severity Reaction Status Date / Time latex Allergy Intermediate Hives Verified 12/17/23 13:08 methylprednisolone Allergy Intermediate Anaphylaxis Verified 12/17/23 13:08 [From Solu-Medrol] erythromycin base AdvReac Intermediate Vomiting Verified 12/17/23 13:16 Review of Systems ROS Narrative A ten point review of systems is negative except as noted above. PFSH PFSH Social History Little interest or pleasure in doing things: not at all Feeling down, depressed, or hopeless: not at all Exam Narrative Exam Narrative: Nurses note and vital signs reviewed and patient is not hypoxic. General: The patient appears in no apparent distress. Patient coughs frequently Skin: Warm, dry, no pallor noted. There is no rash noted. Head: Normocephalic, atraumatic Eye: Normal conjunctiva, no drainage Ears, Nose, Mouth, and Throat: oral mucosa is moist. Nares patent. Cardiovascular: Regular Rate and Rhythm Respiratory: Coughs frequently, coughs when she takes in a deep breath. Breath sounds are equal bilaterally. She has difficulty taking in a deep breath. Back: non-tender GI: Soft and nontender Musculoskeletal: The patient has no evidence of calf tenderness, no pitting edema, symmetrical pulses noted bilaterally Neurological: Awake and alert Psychiatric: Cooperative Constitutional Vital Signs, click to edit/add: Last Vital Signs Temp 98.0 F 12/29/23 09:54 Pulse 129 H 12/29/23 09:54 Resp 18 12/29/23 09:54 BP 154/100 H 12/29/23 09:54 Pulse Ox 98 12/29/23 10:25 O2 Del Method Room Air 12/29/23 10:25 Course Vital Signs Vital signs: Vital Signs Temperature 98.0 F 12/29/23 09:54 Pulse Rate 129 H 12/29/23 09:54 Respiratory Rate 18 12/29/23 09:54 Blood Pressure 154/100 H 12/29/23 09:54 Pulse Oximetry 98 12/29/23 09:54 Oxygen Delivery Method Room Air 12/29/23 09:54 Temperature 98.0 F 12/29/23 09:54 Pulse Rate 129 H 12/29/23 09:54 Respiratory Rate 18 12/29/23 09:54 Blood Pressure 154/100 H 12/29/23 09:54 Pulse Oximetry 98 12/29/23 10:25 Oxygen Delivery Method Room Air 12/29/23 10:25 MDM - URI/Sore Throat MDM Narrative Medical decision making narrative: Chest x-ray is negative. Have no suspicion of COVID or influenza at this point. Treatment diagnosis and follow-up were discussed with the patient. Differential Diagnosis Differential diagnosis: Likely upper respiratory infection, viral infection, bronchitis and other (Pneumonia) Lab Data Attestation: I reviewed the patient's lab results. Labs: Lab Results 12/29/23 Range/Units 10:19 WBC 16.9 H (4.0-11.0) 10^3/uL RBC 4.30 (4.20-5.40) 10^6/uL Hgb 10.7 L (12.0-16.0) g/dL Hct 34.3 L (36.0-48.0) % MCV 79.8 L (81.0-99.0) fL MCH 24.9 L (26.7-34.0) pg MCHC 31.2 (29.9-35.2) g/dL RDW 17.6 H (11.0-15.0) % Plt Count 568 H (150-450) 10^3/uL MPV 8.4 L (9.5-13.5) fL Seg Neuts % (Manual) 70.0 (43.0-75.0) Lymphocytes % (Manual) 25.0 (20.5-60.0) % Monocytes % (Manual) 4.0 (1.7-12.0) % Eosinophils % (Manual) 1.0 (0.9-7.0) % Basophils % (Manual) 0.0 L (0.2-2.0) % Neutrophils # (Manual) 11.83 H (1.4-6.5) 10^3/uL Lymphocytes # (Manual) 4.22 H (1.20-3.80) 10^3/uL Monocytes # (Manual) 0.67 (0.30-0.80) 10^3/uL Eosinophils # (Manual) 0.16 (0.00-0.70) 10^3/uL Basophils # (Manual) 0.00 (0.00-0.10) 10^3/uL Sodium 133 L (136-145) mmol/L Potassium 3.7 (3.5-5.1) mmol/L Chloride 99 (98-107) mmol/L Carbon Dioxide 23.1 (21.0-32.0) mmol/L Anion Gap 14.6 BUN 10.0 (7.0-18.0) mg/dL Creatinine 0.77 (0.55-1.02) mg/dL Est GFR ( Amer) >60 (>=60 mL/min/1.73m^2) Est GFR (Non-Af Amer) >60 (>=60 mL/min/1.73m^2) BUN/Creatinine Ratio 13.0 Glucose 127 H (74-106) mg/dL Calcium 9.0 (8.5-10.1) mg/dL Discharge Plan Discharge Chief Complaint: Upper Respiratory Infection Clinical Impression: Upper respiratory infection Patient Disposition: Home, Self-Care Time of Disposition Decision: 12:17 Condition: Good Mode of Transportation: Private Vehicle Prescriptions / Home Meds: New prednisone 10 mg tablet See Rx Instructions .ROUTE .COMPLEX Qty: 30 0RF Rx Instructions: 4 by mouth daily for three days then 3 by mouth daily for three days then 2 by mouth daily for three days then 1 by mouth daily for three days doxycycline hyclate 100 mg capsule 100 mg PO BID 10 Days Qty: 20 0RF benzonatate 100 mg capsule 100 mg PO TID PRN (Reason: cough) Qty: 20 0RF No Action gabapentin 400 mg capsule 400 mg PO Q12H omeprazole 40 mg capsule,delayed release(DR/EC) 40 mg PO DAILY atorvastatin 20 mg tablet 20 mg PO DAILY albuterol sulfate 90 mcg/actuation HFA aerosol inhaler 2 puff INHALATION Q6H losartan 50 mg tablet 50 mg PO DAILY Stiolto Respimat 2.5-2.5 mcg/actuation mist 2 inh INHALATION Q24H cetirizine 10 mg tablet 10 mg PO DAILY Print Language: Slovenian Instructions: Upper Respiratory Infection (ED) Additional Instructions: Follow-up with your PCP Referrals: Domi Altamirano NP [Primary Care Provider] - 1 week
[2023-12-29] MEDS: ALBUTEROL SULFATE 2.5 MG/3 ML VIAL NEB IH (10:21)
[2023-12-29 10:25] VITALS: O2SAT 98
[2023-12-29 10:34] LABS: Hematocrit 34.3 % (36.0-48.0); Hemoglobin 10.7 g/dL (12.0-16.0); Mean Corpuscular HGB Conc 31.2 g/dL (29.9-35.2); Mean Corpuscular Hemoglobin 24.9 pg (26.7-34.0); Mean Corpuscular Volume 79.8 fL (81.0-99.0); Mean Platelet Volume 8.4 fL (9.5-13.5); Platelet Count 568 10^3/uL (150-450); Red Cell Distribution Width 17.6 % (11.0-15.0); White Blood Count 16.9 10^3/uL (4.0-11.0)
[2023-12-29 10:43] LABS: Anion Gap 14.6; Carbon Dioxide 23.1 mmol/L (21.0-32.0); Chloride 99 mmol/L (98-107); Estimated GFR (African America >60 (>=60 mL/min/1.73m^2); Estimated GFR (Non-African Ame >60 (>=60 mL/min/1.73m^2); Glucose 127 mg/dL (74-106); Potassium 3.7 mmol/L (3.5-5.1); Sodium 133 mmol/L (136-145)
[2023-12-29 11:28] LABS: Eosinophils Absolute Manual 0.16 10^3/uL (0.00-0.70); Lymphocytes Absolute Manual 4.22 10^3/uL (1.20-3.80); Monocytes Absolute Manual 0.67 10^3/uL (0.30-0.80); Segmented Neut Absolute Manual 11.83 10^3/uL (1.4-6.5)
== END 2023-12-29 12:24 | disposition home or self-care (01) ==
PROVIDERS: Emergency Provider Emergency Medicine; PCP Nurse Practitioner
DX: J06.9 Acute upper respiratory infection, unspecified (principal)
CPT/HCPCS: 36415; 71045; 80048; 85007; 85027; 94640; 99285

== ENCOUNTER 2024-09-15 17:28 | Inpatient (IN) | payer BC, SELFPAY ==
--- OUTSIDE RECORDS SUMMARY | 2024-08-15 03:51 | XMS_ITS | Continuity of Care Document ---
Author Organization [facility] Address [address] [place] [address] Phone Care Team Providers Care Dietetic Assistant Name Role Phone Dylan Vincent DDS Unavailable [...] 1st Film Nutrit Couns For Control Of [facility] Dis July Comp Oral Eval New/estab Patient 2024 Comp Oral Eval New/estab Patient 2024 Extract; Erupted Th/exposted Rt 025 Oral Hygiene Instruction Intraoral-periapical 1st Film Bitewig-single Film Limited Oral Eval Oral Hygiene Instruction COVID-19 Antigen Test Nutrit Couns For Control Of [facility] Dis Apr Post Op Visit Dental Post [...] 3s; Posterior Nutrit Couns For Control Of [facility] Dis Mar Resin Composite 4+s; Posterior Oral [...] Diagnoses Date Provider Providers Copied on Encounter [facility], [address], [place], [id number], [place] tel:[phone] [facility] Dental Clinic dn (chief complaint) Encounter for screening for dental disorders 5 Vincent DDS Yixue. [address] [place], [address], [place]. tel:[phone] [facility], [address] [place] [address], [id number], [place] tel:[phone] [facility] Dental Clinic ext (chief complaint) Encounter for screening for dental disorders 5 Vincent DDS Yixue. [address] [place] [address], [address], [place]. tel:[phone] [facility], [address] [place] [address], [id number], [place] tel:[phone] [facility] Dental Clinic er (chief complaint) Encounter for screening for dental disorders 5 Vincent DDS Yixue. [address] [place] [address], [address], [place]. tel:[phone] [facility], [address] [place] [address], [id number], [place] tel:[phone] Dental Clinic POV (chief complaint) Encounter for screening for COVID-19Encounter for screening for dental disorders 2 José Luis Ayoub. [address] [place] [address], [address], [place]. tel:[phone] [facility], [address] [place] [address], [id number], [place] tel:[phone] Dental Clinic No Information 2 Ruddy Delgado. [address] [place] [address], [id number] , [place]. tel:[phone] [facility], [address] [place] [address], [id number], [place] tel:[phone] [facility] No Information 2 Kervin Adkins. [address], [place], [id number] , [place]. tel:+ [phone] [facility], [address], [place], [id number], [place] tel:[phone] Dental Clinic Dental Limited (chief complaint) Encounter for screening for dental disorders 2 Ruddy Delgado. [address], [place], [id number] , [place]. tel:+ [phone] [facility], [address], [place], [id number], [place] tel:[phone] Dental Clinic Fill (chief complaint) Encounter for screening for dental disorders 2 Ruddy Delgado. [address], [place], [id number] , [place]. tel: [phone] [facility], [address], [place], [id number], [place] tel:[phone] Dental Clinic Fillings (chief complaint) Encounter for screening for dental disorders 2 Ruddy Delgado. [address], [place], [id number] , [place]. tel:+ [phone] [facility], [address], [place], [id number], [place] tel:[phone] Dental Clinic Fill (chief complaint) Encounter for screening for dental disorders 2 Ruddy Delgado. [address], [place], [id number] , [place]. tel:+ [phone] [facility], [address], [place], [id number], [place] tel:[phone] Dental Clinic filling (chief complaint) Encounter for screening for dental disorders 2 José Luis Ayoub. [address] [place], [address], [place]. tel:+ [phone] [facility], [address], [place], [id number], [place] tel:[phone] Dental Clinic Filling (chief complaint) Encounter for screening for dental disorders 2 Ordonez DDS Mega. [address] [place], [address], [place]. tel: [phone] [facility], [address], [place], [id number], [place] tel:[phone] Dental Clinic DL (chief complaint) Encounter for screening for dental disorders 2 Ordonez DDS Mega. [address] [place], [address], [place]. tel: [phone] [facility], [address] [place] [address], [id number], [place] tel:[phone] Dental Clinic dental new (chief complaint) Encounter for screening for dental disorders 9 Domarkos DDS Alfredojulianek. [address], [place], [id number] , [place]. tel: [phone] [facility], [address] [place] [address], [id number], [place] tel:[phone] [facility] Detox Encounter for test, result negativeAlcohol dependence with withdrawal, unspecifiedAnxiety disorder, unspecifiedCough Mar-0 8-201 8 Pearce Zachary. [address] [place], [address], [place]. tel: [phone] [facility], [address] [place] [address], [id number], [place] tel:[phone] [facility] Pearce: (chief complaint) Encounter for test, result negativeAlcohol dependence with withdrawal, unspecifiedAnxiety disorder, unspecifiedCough Mar-0 7-201 8 Pearce Zachary. [address] [place], [address], [place]. tel: [phone] [facility], [address] [place] [address], [id number], [place] tel:[phone] [facility] Encounter for test, result negativeAlcohol dependence with withdrawal, unspecifiedAnxiety disorder, unspecified Mar-0 6-201 8 Pearceagatha Sharma. [address] [place], [address], [place]. tel:[phone] [facility], [address] [place] [address], [id number], [place] tel:[phone] [facility] Encounter for test, result negativeAlcohol dependence with withdrawal, unspecifiedAnxiety disorder, unspecified Mar-0 6-201 8 Pearceagatha Sharma. [address] [place], [address], [place]. tel:[phone] [facility], [address] [place] [address], [id number], [place] tel:[phone] [facility] [place]: (chief complaint) Encounter for test, result negativeAlcohol dependence with withdrawal, unspecifiedAnxiety disorder, unspecified Mar-0 5-201 8 [place] Sharma. [address] [place], [address], [place]. tel:[phone] Family History Family Member Type Diagnosis Age [...] type Covered republican ID Sarah monroe(s) Randal [facility] 17 [id number] Social History Type Description Quantity Date Captured [...] tr eatment DL DL dental [facility] [place]: Doing better now than when last seen. Coughing 5 or 6 days. Bringing up green and dark sputum. Has used a Ventolin inhaler in the past. 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 Functional Status Date Functional Assessmen t No Information Instructions Date Instruction Additional Infor mation No Information Assessments Type Assessment Date No Information Patient Care Teams Name Effective Dates (start - stop) Status Members No Information
[2024-09-15] VITALS (12 sets, daily range): BP systolic 95–112; BP diastolic 65–73; PULSE 96–111; TEMP 36.4–37.1; O2SAT 92–97; BMI 19.4; BMI 19.1
--- OUTSIDE RECORDS SUMMARY | 2024-09-15 17:36 | XMS_ITS | Encounter Summary ---
Demographics Address [address] [place] [address] Mobile Phone Email Address Preferred Language en Marital Status Unmarried Cheondoism Affiliation Unknown Race White Ethnic Group Not or Lati no Author Organization [facility] Address [address] [place] [address] Care Team Providers Care Highway Engineer Name Role Phone Domi Altamirano PICKER PACKER Unavailable [phone] Hiren Horton MD Primary Care Provider [phone] Domi Altamirano PICKER PACKER Unavailable [phone] Encounter Details Date Type Department Care Team (Late st Contact Info) Description 01/10/2024 Abstract [facility] [address] [place] [address] Domi Altamirano PICKER PACKER [address] [place] [address] Social History Tobacco Use Types Packs/Day Years Used Date Smoking Tobacco: Every Day Cigarettes Smokeless Tobacco: Never Alcohol Use Standard Drinks/Week Comments Never 0 (1 standard drink = 0.6 oz pure alcohol) caffine: coffee 1 cup daily. Tea 2 cups daily B1300 Health Literacy Answer Date Recor ded How often do you need to hav e someone help you when you read instructions, pamphlets, or other written material from your doctor or pharmacy? Sometimes 10/08/2023 Social Connection and Isolation Panel [NHANES] A nswer Date Recorded In a typical week, how many times do you talk on the phone with family, friends, or neighbors? Once a week 10/08/2023 How often do you get togethe r with friends or relatives? Patient declined 10/08/2023 How often do you attend protestant or baptism serv ices? Never 10/08/2023 Do you belong to any clubs o r organizations such as protestant groups, unions, fraternal or athletic groups, or school groups? No 10/08/2023 How often do you attend meet ings of the clubs or organizations you belong to? Patient declined 10/08/2023 Are you , , di vorced, , never , or living with a partner? 10/08/2023 AUDIT-C Answer Date Recorded Q1: How often do you have a drink containing alcohol? Never 10/08/2023 Q2: How many drinks containi ng alcohol do you have on a typical day when you are drinking? Patient does not drink Q3: How often do you have si x or more drinks on one occasion? Never 10/08/2023 Overall Financial Resource Strain (CARDIA) Answe r Date Recorded How hard is it for you to pa y for the very basics like food, housing, medical care, and heating? Very hard 10/08/2023 [facility] - Occupational Stress Questionnaire Answer Date Recorded Do you feel stress - tense, restless, nervous, or anxious, or unable to sleep at night because your mind is troubled all the time - these days? To some extent 10/08/2023 Exercise Vital Sign Answer Date Recorde d On average, how many days pe r week do you engage in moderate to strenuous exercise (like a brisk walk)? 7 days On average, how many minutes do you engage in exercise at this level? Patient declined 10/08/2023 Hunger Vital Sign Answer Date Recorded Within the past 12 months, y ou worried that your food would run out before you got the money to buy more. Often true Within the past 12 months, t he food you bought just didn't last and you didn't have money to get more. Sometimes true PRAPARE - Transportation Answer Date Re corded In the past 12 months, has l ack of transportation kept you from medical appointments or from getting medications? Yes 09/23 In the past 12 months, has l ack of transportation kept you from meetings, work, or from getting things needed for daily living? Yes 10/08/2023 Housing Stability Vital Sign Answer Fredi e Recorded In the last 12 months, was t here a time when you were not able to pay the mortgage or rent on time? No 10/08/2023 In the past 12 months, how m any times have you moved where you were living? 1 10/08/2023 At any time in the past [address] [facility], were you homeless or living in a assisted (including now)? Yes 10/08/2023 Comments Unknown Sex and Gender Information Value Date Recorded Sex Assigned at Not on file Legal Sex Female 6:59 PM EDT Gender Identity Not on file Sexual Orientation Not on file documented as of this encounter Plan of Treatment Upcoming Encounters Date Type Department Care Team (Late st Contact Info) Description 10/21/2024 8:40 AM EDT Office Visit [facility] [address] [place] [address] Domi Altamirano NP [address] [place] [id number] documented as of this encounter Visit Diagnoses Not on filedocumented in this encounter Care Teams Highway Engineer Relationship Specialty Start Date End Date Hiren Horton MD [address] [place] [address] PCP - General Family Medicine 07/26/23 Domi Altamirano NP [address] [place] [address] Nurse Practitioner Family Medicine 03/26/22 Domi Altamirano NP [address] [place] [address] Nurse Practitioner Family Medicine 07/26/23 documented as of this encounter
--- OUTSIDE RECORDS SUMMARY | 2024-09-15 17:36 | XMS_ITS | Encounter Summary ---
Demographics Address [address] [place] [address] Mobile Phone Email Address Preferred Language en Marital Status Unmarried Jewish Affiliation Unknown Race White Ethnic Group Not or Lati no Author Organization [facility] Address [address] [place] [address] Care Team Providers Care Equipment Tester Name Role Phone Domi Altamirano SWITCHBOX ASSEMBLER Unavailable [phone] Hiren Horton MD Primary Care Provider [phone] Domi Altamirano SWITCHBOX ASSEMBLER Unavailable [phone] Encounter Details Date Type Department Care Team (Late st Contact Info) Description 10/09/2023 Orders Only [facility] [address] [place] [phone] Domi Munroe MD [address] [place], [place] [id number] Social History Tobacco Use Types Packs/Day Years [...] declined 10/08/2023 How often do you attend episcopalian or orthodoxy serv ices? Never 10/08/2023 Do you belong to any clubs o r organizations such as episcopalian groups, unions, fraternal or athletic groups, or [...] medical care, and heating? Very hard 10/08/2023 [facility] - Occupational Stress Questionnaire Answer Date Recorded [...] any time in the past 12 m [facility], were you homeless or living in a detention (including now)? Yes 10/08/2023 Comments Unknown Sex [...] Office Visit [facility] [address] [place] [address] Domi Altamirano NP [address] [place] [address] documented as of this encounter Procedures Procedure Name Priority Date/Time Associated Diagnosis Comments US PELVIS TRANSVAGINAL Routine 10/09/2023 8:59 AM EDT documented in this encounter Results * US pelvis transvaginal (10/09/2023 8:59 AM EDT) Anatomical Region Laterality Modality Pelvis Ultrasound us Domi Munroe MD IMG US PROCEDURES Final Result documented in this encounter Visit Diagnoses Not on filedocumented in this encounter Care Teams Equipment Tester Relationship Specialty Start Date End Date Hiren Horton MD [address] [place] [address] PCP - General Family Medicine 07/26/23 Domi Altamirano NP [address] [place] [address] Nurse Practitioner Family Medicine 03/26/22 Domi Altamirano NP [address] [place] [address] Nurse Practitioner Family Medicine 07/26/23 documented as of this encounter
--- OUTSIDE RECORDS SUMMARY | 2024-09-15 17:36 | XMS_ITS | Encounter Summary ---
Demographics Address [address] [place] [address] Mobile Phone Email Address Preferred Language en Marital Status Unmarried Mormonism Affiliation Unknown Race White Ethnic Group Not or Lati no Author Organization [facility] Address [address] [place] [address] Care Team Providers Care Route Contractor Name Role Phone Domi Altamirano NP Unavailable [phone] Hiren Horton MD Primary Care Provider [phone] Domi Altamirano NP Unavailable [phone] Encounter Details Date Type Department Care Team (Late st Contact Info) Description 09/25/2023 Clinisync Result Encounter [facility] External Department Unsolicited Domi Altamirano NP [address] [place] [address] Social History Tobacco Use Types Packs/Day Years Used Date Smoking Tobacco: Every Day Cigarettes Smokeless Tobacco: Never Alcohol Use Standard Drinks/Week Comments Never 0 (1 standard drink = 0.6 oz pure alcohol) caffine: coffee 1 cup daily. Tea 2 cups daily Comments Unknown Sex and Gender Information Value Date Recorded Sex Assigned at Not on file Legal Sex Female 6:59 PM EDT Gender Identity Not on file Sexual Orientation Not on file documented as of this encounter Plan of Treatment Upcoming Encounters Date Type Department Care Team (Late st Contact Info) Description 10/21/2024 8:40 AM EDT Office Visit [facility] [address] [place] [phone] Domi Altamirano NP [address] [place] [address] documented as of this encounter Procedures Procedure Name Priority Date/Time Associated Diagnosis Comments MM TOMOSYNTHESIS SCREENING BI 09/25/2023 3:19 PM EDT documented in this encounter Results * MM TOMOSYNTHESIS SCREENING BI (09/25/2023 3:19 PM EDT) Anatomical Region Laterality Modality Other 09/25/2023 3:19 PM EDT Narrative 09/25/2023 3:20 [place] [address] Mammography Report Signed Patient: JAIME MERRILL MR#: [id number] : 1975 Acct:[id number] Age/Sex: 48 / F ADM Date: 09/24/23 Loc: MAMMO Attending Dr: Domi Altamirano NP Ordering Physician: Domi Altamirano NP Results: Date of Service: 09/24/23 Follow Up: Procedure(s): MM tomosynthesis screening BI Accession Number(s): [id number] cc: Domi Altamirano NP Patient Name: JAIME MERRILL MR#: [id number] : 1975 Exam Date: 09/24/2023 Ordering Doctor: ARELY ALTAMIRANO CNP RADIOLOGY REPORT PROCEDURE: MM TOMOSYNTHESIS SCREENING BI COMPARISON: MG MAMM SCREEN 3D STEVE CAD, 06/03/2021. INDICATIONS: Screening for malignancy Calculator Name NCI Breast Cancer Risk Assessment Tool 5 Year Breast Cancer Risk 0.70% Lifetime Breast Cancer Risk 6.70% Personal Breast Cancer No Personal Ovarian Cancer No Treatments None Family Cancers Father with unknown cancer at age 55; Grandmother-maternal with lymphoma cancer at age 63. LOCATION: [facility] BREAST COMPOSITION: The breasts are heterogeneously dense,which may obscure small masses. FINDINGS: DIAGNOSTIC CATEGORY 1--NEGATIVE. RIGHT BREAST: No significant suspicious finding. No significant change has occurred. LEFT BREAST: No significant suspicious finding. No significant change has occurred. RECOMMENDATIONS: ROUTINE MAMMOGRAM AND CLINICAL EVALUATION IN 12 MONTHS. PLEASE NOTE: A NORMAL MAMMOGRAM DOES NOT EXCLUDE THE POSSIBILITY OF BREAST CANCER. A CLINICALLY SUSPICIOUS PALPABLE LUMP SHOULD BE BIOPSIED. Dictated by: Evan Jackson M.D. on 09/25/2023 at 15:07 Approved by: Evan Jackson M.D. on 09/25/2023 at 15:18 Dictated By: Evan Jackson M.D. Signed By: 09/25/23 1520 DD/ 1519 TD/TT: [place]: Procedure Note Radiology, Radiologist, MD - 09/25/2023 [place] [address] Mammography Report Signed Patient: JAIME MERRILL KMR#: [id number] : 1975Acct:[id number] Age/Sex: 48 / FADM Date: 09/24/23 Loc: MAMMO Attending Dr: Domi Altamirano NP Ordering Physician: Domi Altamirano NPResults: Date of Service: 09/24/23Follow Up: Procedure(s): MM tomosynthesis screening BI Accession Number(s): [id number] cc: Domi Altamirano NP Patient Name: JAIME MERRILL MR#: [id number] : 1975 Exam Date: 09/24/2023 Ordering Doctor: ARELY ALTAMIRANO CNP RADIOLOGY REPORT PROCEDURE: MM TOMOSYNTHESIS SCREENING BI COMPARISON: MG MAMM SCREEN 3D STEVE CAD, 06/03/2021. INDICATIONS: Screening for malignancy Calculator Name NCI Breast Cancer Risk Assessment Tool 5 Year Breast Cancer Risk 0.70% Lifetime Breast Cancer Risk 6.70% Personal Breast Cancer No Personal Ovarian Cancer No Treatments None Family Cancers Father with unknown cancer at age 55;Grandmother-maternal with lymphoma cancer at age 63. LOCATION: [facility] BREAST COMPOSITION: The breasts are heterogeneously dense,which may obscure small masses. FINDINGS: DIAGNOSTIC CATEGORY 1--NEGATIVE. RIGHT BREAST: No significant suspicious finding. No significant changehas occurred. LEFT BREAST: No significant suspicious finding. No significant changehas occurred. RECOMMENDATIONS: ROUTINE MAMMOGRAM AND CLINICAL EVALUATION IN 12 MONTHS. PLEASE NOTE: A NORMAL MAMMOGRAM DOES NOT EXCLUDE THE POSSIBILITY OFBREAST CANCER. A CLINICALLY SUSPICIOUS PALPABLE LUMP SHOULD BE BIOPSIED. Dictated by: Evan Jackson M.D. on 09/25/2023 at 15:07 Approved by: Evan Jackson M.D. on 09/25/2023 at 15:18 Dictated By: Evan Jackson M.D. Signed By:09/25/23 1520 DD/ 1519 TD/TT: [place]: us Domi Altamirano NP [facility] Final Result documented in this encounter Visit Diagnoses Not on filedocumented in this encounter Care Teams Route Contractor Relationship Specialty Start Date End Date Hiren Horton MD [address] [place] [address] PCP - General Family Medicine 07/26/23 Domi Altamirano NP [address] [place] [address] Nurse Practitioner Family Medicine 03/26/22 Domi Altamirano NP [address] [place] [address] Nurse Practitioner Family Medicine 07/26/23 documented as of this encounter
--- OUTSIDE RECORDS SUMMARY | 2024-09-15 17:36 | XMS_ITS | Encounter Summary ---
Demographics Address [address] [place] [address] Mobile Phone Email Address Preferred Language en Marital Status Unmarried Mormonism Affiliation Unknown Race White Ethnic Group Not or Lati no Author Organization [facility] Address [address] [place] [address] Care Team Providers Care Bell Valet Name Role Phone Domi Altamirano FARMWORKER [employer] Unavailable [phone] Hiren Horton MD Primary Care Provider [phone] Domi Altamirano FARMWORKER [employer] Unavailable [phone] Encounter Details Date Type Department Care Team (Late st Contact Info) Description 12/17/2023 Orders Only [facility] [address] [place] [address] Domi Altamirano [employer]ARMWORKER [employer] [address] [place] [address] Social History Tobacco Use Types Packs/Day Years [...] declined 10/08/2023 How often do you attend temple or lutheran serv ices? Never 10/08/2023 Do you belong to any clubs o r organizations such as temple groups, unions, fraternal or athletic groups, or [...] medical care, and heating? Very hard 10/08/2023 [facility] - Occupational [...] any time in the past 12 m [facility], were you homeless or living in a fci (including now)? Yes 10/08/2023 Comments Unknown Sex [...] Office Visit [facility] [address] [place] [address] Domi Altamirano NP [address] [place] [address] documented as of this encounter Procedures Procedure Name Priority Date/Time Associated Diagnosis Comments XR CHEST 1 VIEW Routine 12/17/2023 2:13 PM EDT documented in this encounter Results * XR chest 1 view (12/17/2023 2:13 PM EDT) Anatomical Region Laterality Modality Chest Radiographic Carmen ging Domi Altamirano FARMWORKER [employer] IMG XR PROCEDURES Final Result documented in this encounter Visit Diagnoses Not on filedocumented in this encounter Care Teams Bell Valet Relationship Specialty Start Date End Date Hiren Horton MD [address] [place] [phone] PCP - General Family Medicine 07/26/23 Domi Altamirano NP [address] [place] [address] Nurse Practitioner Family Medicine 03/26/22 Domi Altamirano NP [address] [place] [address] Nurse Practitioner Family Medicine 07/26/23 documented as of this encounter
--- OUTSIDE RECORDS SUMMARY | 2024-09-15 17:36 | XMS_ITS | Encounter Summary ---
Demographics Address [address] [place] [address] Mobile Phone Email Address Preferred Language en Marital Status Unmarried Zoroastrian Affiliation Unknown Race White Ethnic Group Not or Lati no Author Organization [facility] Address [address] [place] [address] Care Team Providers Care Rewinder Name Role Phone Domi Altamirano CUSTOM WOOD STAIR BUILDER Unavailable [phone] Hiren Horton MD Primary Care Provider [phone] Domi Altamirano CUSTOM WOOD STAIR BUILDER Unavailable [phone] Encounter Details Date Type Department Care Team (Late st Contact Info) Description 12/18/2023 Orders Only [facility] [address] [place] [address] Domi Altamirano CUSTOM WOOD STAIR BUILDER [address] [place] [address] Social History Tobacco Use Types Packs/Day Years [...] declined 10/08/2023 How often do you attend baptism or temple serv ices? Never 10/08/2023 Do you belong to any clubs o r organizations such as baptism groups, unions, fraternal or athletic groups, or [...] medical care, and heating? Very hard 10/08/2023 [facility] - Occupational Stress [...] any time in the past 12 m [facility], were you homeless or living in a retirement (including now)? Yes 10/08/2023 Comments Unknown Sex [...] Office Visit [facility] [address] [place] [address] Domi Altamirano NP [address] [place] [address] documented as of this encounter Procedures Procedure Name Priority Date/Time Associated Diagnosis Comments SCANNED LABS Routine 12/18/2023 11:09 AM EDT documented in this encounter Results * SCANNED LABS (12/18/2023 11:09 AM EDT) Domi Altamirano CUSTOM WOOD STAIR BUILDER LAB CHG PERFORMABLES Final Resu lt documented in this encounter Visit Diagnoses Not on filedocumented in this encounter Care Teams Rewinder Relationship Specialty Start Date End Date Hiren Horton MD [address] [place] [address] PCP - General Family Medicine 07/26/23 Domi Altamirano NP [address] [place] [address] Nurse Practitioner Family Medicine 03/26/22 Domi Altamirano NP [address] [place] [address] Nurse Practitioner Family Medicine 07/26/23 documented as of this encounter
--- OUTSIDE RECORDS SUMMARY | 2024-09-15 17:36 | XMS_ITS | Encounter Summary ---
Author Organization [facility] Address [address] [place] [address] Care Team Providers Care Weight Training Instructor Name Role Phone Lizzette Malik CNP Primary Care Provider [phone] Domi Altamirano BILINGUAL CALL CENTER REPRESENTATIVE Unavailable Source Comments In the event this information is protected by the Federal Confidentiality of Alcohol and Drug AbusePatient Records regulations: The Federal rules restrict any use of the information to criminally investigate or prosecute any alcohol or drug abuse patient.[facility] Reason for Visit * Reason Comments Radiology CT Encounter Details Date Type Department Care Team ([facility] st Contact Info) Description 06/20/2017 Radiology Radiology [address] [address] Lizzette Malik, BILINGUAL CALL CENTER REPRESENTATIVE [address] [place] [address] Social History Tobacco Use Types Packs/Day Years Used Date Smoking Tobacco: Never Assessed Comments Unknown Sex and Gender Information Value Date Recorded Sex Assigned at Not on file Legal Sex Female 10:44 AM EDT Gender Identity Not on file Sexual Orientation Not on file documented as of this encounter Plan of Treatment Not on file documented as of this encounter Visit Diagnoses Not on filedocumented in this encounter Care Teams Weight Training Instructor Relationship Specialty Start Date End Date Lizzette Malik CNP PCP - General Family Medicine 12/04/14 Domi Altamirano CNP Referring Family Medicine 10/14/21 documented as of this encounter
--- OUTSIDE RECORDS SUMMARY | 2024-09-15 17:36 | XMS_ITS | Encounter Summary ---
Demographics Address [address] [place] [address] Mobile Phone Email Address Preferred Language en Marital Status Unmarried Adventism Affiliation Unknown Race White Ethnic Group Not or Lati no Author Organization [facility] Address [address] [place] [address] Care Team Providers Care Chief Lock Operator Name Role Phone Domi Altamirano BRICK HANDLER Unavailable [phone] Hiren Horton MD Primary Care Provider Domi Altamirano BRICK HANDLER Unavailable [phone] Encounter Details Date Type Department Care Team (Late Contact Info) Description 10/03/2023 Orders Only [facility] [address] [address] Orly Rushing MD [address] [place], [place] [address] Social History Tobacco Use Types Packs/Day Years [...] 10/21/2024 8:40 AM EDT Office Visit [facility] [address] [place] [address] Domi Altamirano NP [address] [place] [address] documented as of this encounter Procedures Procedure Name Priority Date/Time Associated Diagnosis Comments XR THORACIC SPINE 3 VIEWS Routine 10/03/2023 8:42 AM EDT documented in this encounter Results * XR thoracic spine 3 views (10/03/2023 8:42 AM EDT) Anatomical Region Laterality Modality Spine, T-spine Radiographic Carmen ging Orly Rushing MD IMG XR PROCEDURES Final Result documented in this encounter Visit Diagnoses Not on filedocumented in this encounter Care Teams Chief Lock Operator Relationship Specialty Start Date End Date Hiren Horton MD [address] [place] [address] PCP - General Family Medicine 07/26/23 Domi Altamirano NP [address] [place] [address] Nurse Practitioner Family Medicine 03/26/22 Domi Altamirano NP [address] [place] [address] Nurse Practitioner Family Medicine 07/26/23 documented as of this encounter
--- OUTSIDE RECORDS SUMMARY | 2024-09-15 17:36 | XMS_ITS | Encounter Summary ---
Demographics Address [address] [place] [address] Mobile Phone Email Address Preferred Language en Marital Status Unmarried Catholic Affiliation Unknown Race White Ethnic Group Not or Lati no Author Organization [facility] Address [address] [place] [address] Care Team Providers Care Community Health Nurse Name Role Phone Domi Altamirano CLIENT MANAGER Unavailable [phone] Hiren Horton MD Primary Care Provider [phone] Domi Altamirano CLIENT MANAGER Unavailable [phone] Encounter Details Date Type Department Care Team (Late Contact Info) Description 09/25/2023 Orders Only [facility] [address] [place] [address] Carolyn Seven, OD [address], [place] [address] Social History Tobacco Use Types Packs/Day Years [...] Encounters Date Type Department Care Team (Late Contact Info) Description 10/21/2024 8:40 AM EDT Office Visit [facility] [address] [place] [address] Domi Altamirano NP [address] [place] [address] documented as of this encounter Procedures Procedure Name Priority Date/Time Associated Diagnosis Comments TOMOSYNTHESIS SCREEN MAMMOGRAM Routine 09/25/2023 4:17 PM EDT DIABETIC RETINOPATHY SCREENING - OU - BOTH EYES Routine 09/25/2023 8:54 AM EDT documented in this encounter Results * TOMOSYNTHESIS SCREEN MAMMOGRAM (09/25/2023 4:17 PM EDT) Anatomical Region Laterality Modality Radiographic Carmen ging Domi Altamirano CLIENT MANAGER IMG XR PROCEDURES Final Result * Diabetic Retinopathy Screening - OU - Both Eyes (09/25/2023 8:54 AM EDT) Anatomical Region Laterality Modality Head Other Seven Leon OD OPHTH PHOTOGRAPHY Final Result documented in this encounter Visit Diagnoses Not on filedocumented in this encounter Care Teams Community Health Nurse Relationship Specialty Start Date End Date Hiren Horton MD [address] [place] [address] PCP - General Family Medicine 07/26/23 Domi Altamirano NP [address] [place] [address] Nurse Practitioner Family Medicine 03/26/22 Domi Altamirano NP [address] [place] [address] Nurse Practitioner Family Medicine 07/26/23 documented as of this encounter
--- OUTSIDE RECORDS SUMMARY | 2024-09-15 17:36 | XMS_ITS | Encounter Summary ---
Demographics Address [address] [place] [address] Mobile Phone Email Address Preferred Language en Marital Status Unmarried Mu-Ism Affiliation Unknown Race White Ethnic Group Not or Lati no Author Organization [facility] Address [address] [place] [address] Care Team Providers Care Automotive Service Director Name Role Phone Domi Altamirano HOMICIDE SQUAD COMMANDING OFFICER Unavailable [phone] Hiren Horton MD Primary Care Provider [phone] Domi Altamirano HOMICIDE SQUAD COMMANDING OFFICER Unavailable [phone] Encounter Details Date Type Department Care Team (Late st Contact Info) Description 12/31/2023 Orders Only [facility] [address] [place] [address] Abran West MD [address] [place], [place] [address] Social History Tobacco Use Types Packs/Day Years [...] declined 10/08/2023 How often do you attend yarsanism or sabianism serv ices? Never 10/08/2023 Do you belong to any clubs o r organizations such as yarsanism groups, unions, fraternal or athletic groups, or [...] medical care, and heating? Very hard 10/08/2023 [facility] - Occupational Stress Questionnaire Answer Date Recorded [...] any time in the past 12 m [facility], were you homeless or living in a senior living (including now)? Yes 10/08/2023 Comments Unknown Sex [...] Office Visit [facility] [address] [place] [address] Domi Altamirano NP [address] [place] [address] documented as of this encounter Procedures Procedure Name Priority Date/Time Associated Diagnosis Comments XR CHEST 1 VIEW Routine 12/31/2023 12:02 PM EDT documented in this encounter Results * XR chest 1 view (12/31/2023 12:02 PM EDT) Anatomical Region Laterality Modality Chest Radiographic Carmen ging Abran West MD IMG XR PROCEDURES Final Resul t documented in this encounter Visit Diagnoses Not on filedocumented in this encounter Care Teams Automotive Service Director Relationship Specialty Start Date End Date Hiren Horton MD [address] [place] [address] PCP - General Family Medicine 07/26/23 Domi Altamirano NP [address] [place] [address] Nurse Practitioner Family Medicine 03/26/22 Domi Altamirano NP [address] [place] [address] Nurse Practitioner Family Medicine 07/26/23 documented as of this encounter
--- OUTSIDE RECORDS SUMMARY | 2024-09-15 17:36 | XMS_ITS | Clinical Summary ---
Author Organization [facility] Address [address] [place] [id number] Care Team Providers Care Inspector Returned Materials Name Role Phone Lizzette Malik Gunner LIBRARY TECHNICAL ASSISTANT Primary Care Provider [phone] Domi Altamirano LIBRARY TECHNICAL ASSISTANT Unavailable [phone] Allergies Active Allergy Reactions Criticality Noted Date Comments Erythromycin Hives 08/21/2016 Latex Rash 08/21/2016 Methylprednisolone Sodium Succ Anaphylaxis 07/25 Medications sodium phosphate-sodium bisphosphate (FLEET) enema 133 mL by RECTAL route once daily as needed for Constipation for up to 3 doses. 399 mL 7 Active naproxen (NAPROSYN) 375 mg tablet Take 1 tablet by mouth three times daily as needed (pain). TAKE WITH FOOD 28 tablet 7 Active Active Problems No known active problems Social History Tobacco Use Types Packs/Day Years Used Date Smoking Tobacco: Former Smokeless Tobacco: Never Alcohol Use Standard Drinks/Week Comments No 0 (1 standard drink = 0.6 oz pur e alcohol) Comments Unknown Sex and Gender Information Value Date Recorded Sex Assigned at Not on file Legal Sex Female 10:44 AM EDT Gender Identity Not on file Sexual Orientation Not on file Last Filed Vital Signs Vital Sign Reading Time Taken Comments Blood Pressure 141/98 06/28/2017 9:10 PM EDT Pulse 90 06/28/2017 9:10 PM EDT Temperature 36.3 C (97.3 F) 06/28/2017 9:10 PM EDT Respiratory Rate 18 06/28/2017 9:10 PM EDT Oxygen Saturation 98% 06/28/2017 9:10 PM EDT Inhaled Oxygen Concentration - - Weight 66.4 kg (146 lb 6.4 oz) 06/28/2017 9:10 P M EDT Height 167.6 cm (5' 6 ) 06/28/2017 9:10 PM EDT Body Mass Index 23.63 06/28/2017 9:10 PM EDT Plan of Treatment Health Maintenance Due Date Last Done Comments Anxiety Screening 08/23/1993 Depression Screening 08/23/1993 HIV Screening 08/23/1993 Hepatitis C Screening 08/23/1993 DTaP,Tdap,Td Vaccine (1 - Tdap) 08/23/1994 Hepatitis B Vaccine (1 of 3 - 19+ 3-dose series) 08/23/1994 Cervical Cancer Screening 08/23/[address] Colonography 08/23/2020 Cologuard (FIT-DNA) 08/23/2020 Colonoscopy 08/23/2020 Colorectal Cancer Screening 08/23/2020 Diabetes Screening 08/23/2020 06/19/2017, 0 06/14/2017, 08/21/2016 Fecal Occult Blood 08/23/2020 Lipid Screening 08/23/2020 Sigmoidoscopy 08/23/2020 Covid-19 Vaccine ( season) 2023 Influenza Vaccine (Season Ended) 2024 Procedures Procedure Name Priority Date/Time Associated Diagnosis Comments COMPREHENSIVE METABOLIC PANEL STAT 06/19/2017 10:35 PM EDT from Last 3 Months or Most Recently Relevant to Health Maintenance Results * (ABNORMAL) COMP METABOLIC PANEL (06/19/2017 10:35 PM EDT) Protein, Total 6.9 6.3 - 8.0 g/dL 06/19/2017 11:09 PM EDT [facility] Albumin 4.4 3.9 - 4.9 g/dL 06/19/2017 11:09 PM EDT [facility] Calcium 9.4 8.5 - 10.2 mg/dL 06/19/2017 11:09 PM EDT [facility] Bilirubin, Total <0.2(L) 0.2 - 1.3 mg/dL 06/19/2017 11:09 PM EDT [facility] Alkaline Phosphatase 64 32 - 117 U/L 06/19/2017 11:09 PM [facility] AST 11(L) 13 - 35 U/L 06/19/2017 11:09 PM [facility] Glucose 100(H) 74 - 99 mg/dL 06/19/2017 11:09 PM [facility] Comment: The [place] Diabetes Association (ADA) provides guidance for cutoff values for fasting glucose and random glucose. The ADA defines fasting as no caloric intake for at least 8 hours. Fasting plasma glucose results between 100 to 125 mg/dL indicate increased risk for diabetes (prediabetes). Fasting plasma glucose results greater than or equal to 126 mg/dL meet the criteria for diagnosis of diabetes. In the absence of unequivocal hyperglycemia, results should be confirmed by repeat testing. In a patient with classic symptoms of hyperglycemia or hyperglycemic crisis, random plasma glucose results greater than or equal to 200 mg/dL meet the criteria for diagnosis of diabetes. Reference: Standards of Medical Care in Diabetes 2016, [place] Diabetes Association. Diabetes Care. 2016.39(Suppl 1). BUN 11 7 - 21 mg/dL 06/19/2017 11:09 PM [facility] Creatinine 0.75 0.58 - 0.96 mg/dL 06/19/2017 11:09 PM [facility] Sodium 138 136 - 144 mmol/L 06/19/2017 11:09 PM [facility] Potassium 4.0 3.7 - 5.1 mmol/L 06/19/2017 11:09 PM [facility] Chloride 103 97 - 105 mmol/L 06/19/2017 11:09 PM [facility] CO2 24 22 - 30 mmol/L 06/19/2017 11:09 PM [facility] Anion Gap 11 9 - 18 mmol/L 06/19/2017 11:09 PM [facility] ALT 11 7 - 38 U/L 06/19/2017 11:09 PM [facility] eGFR- >60 06/19/2017 11:09 PM [facility] eGFR-All Other Races >60 . 06/19/2017 11:09 PM [facility] Comment: eGFR (Estimated GFR) Units of measure: mL/min/1.73 meters squared eGFR is derived from the reexpressed MDRD Study equation using the following parameters: serum creatinine, age, gender and race. The creatinine assay has been calibrated to be traceable to IDMS. An eGFR <60 mL/min/1.73m2 for >3 months is consistent with chronic kidney disease. Refer to KDOQI guidelines for clinical interpretation. In patients with unstable renal function, e.g. those with acute kidney injury, the eGFR may not accurately reflect actual GFR. Blood specimen (specimen) BLOOD SPECIMEN / Unknown 06/19/2017 10:35 PM EDT 06/19/2017 10:48 PM EDT us Evan Ruiz MD LABORATORY Final Result [facility] [address] [place] [address] from Last 3 Months or Most Recently Relevant to Health Maintenance Insurance [employer] Care Teams Inspector Returned Materials Relationship Specialty Start Date End Date Lizzette Malik CNP PCP - General Family Medicine 12/04/14 Domi Altamirano CNP Referring Family Medicine 10/14/21
--- OUTSIDE RECORDS SUMMARY | 2024-09-15 17:36 | XMS_ITS | Clinical Summary ---
Demographics Address [address] [place] [address] Mobile Phone Email Address Preferred Language en Marital Status Unmarried Roman Catholic Affiliation Unknown Race White Ethnic Group Not or Lati no Author Organization [facility] Address [address] [place] [address] Care Team Providers Care Dyeing Machine Tender Name Role Phone Domi Altamirano NP Unavailable [phone] Hiren Horton MD Primary Care Provider [phone] Domi Altamirano [employer] PRESS HELPER Unavailable [phone] Allergies Active Allergy Reactions Criticality Noted Date Comments Erythromycin Unknown 02/21/2023 Latex Unknown 02/21/2023 Methylprednisolone Unknown 02/21/2023 Methylprednisolone Sodium Succ Anaphylaxis High 12/08/2016 Tramadol 07/26/2023 Woogvmyjsyn-Umfldcbul-Rhgvtm Shortness of breath High 02/21/2023 Medications cetirizine (ZyrTEC) 10 MG tabletIndications: Environmental and seasonal allergies Take 1 tablet (10 mg) by mouth Daily 90 tablet 1 10/15/19 24 Active albuterol HFA 90 mcg/act inhalerIndications :Centrilobular emphysema (HCC),Asthma without status asthmaticus without complication, unspecified asthma severity, unspecified whether persistent (HCC) Inhale 2 puffs every 6 (six) hours if needed for wheezing or shortness of breath 54 g 1 12/11/19 24 Active fexofenadine (Vandana) 180 MG tabletIndications: Seasonal Allergic Rhinitis Take 180 mg by mouth Daily Active azelastine (Astelin) 0.1 % nasal sprayIndications:S easonal Allergic Rhinitis Administer 2 sprays into each nostril in the morning and 2 sprays before bedtime. Use in each nostril as directed. Active Albuterol-Budesoni de (Airsupra) 90-80 MCG/ACT aerosolIndications :Asthma,Bronchospa sm,Exacerbation of Asthma Inhale 2 puffs every 6 (six) hours if needed (wheeze and dyspnea) Active atorvastatin (Lipitor) 20 MG tabletIndications: Mixed hyperlipidemia Take 1 tablet (20 mg) by mouth at bedtime 90 tablet 1 07/23/19 025 Active fluticasone (Flonase) 50 MCG/ACT nasal sprayIndications:E nvironmental and seasonal allergies Administer 2 sprays into each nostril Daily Shake gently. Before first use, prime pump. After use, clean tip and replace cap. 48 g 07/23/19 025 Active gabapentin (Neurontin) 400 MG capsuleIndications :Chronic pain syndrome Take 1 capsule (400 mg) by mouth every 8 (eight) hours if needed (back pain) 270 capsule 07/23/19 025 Active tiotropium-olodate rol (Stiolto Respimat) 2.5-2.5 MCG/ACT aerosol solution inhalerIndications :Centrilobular emphysema (HCC) Inhale 2 Inhalation Daily 12 g 07/23/19 025 Active omeprazole (PriLOSEC) [address] capsuleIndications :Gastroesophageal reflux disease without esophagitis Take 1 capsule (40 mg) by mouth in the morning and 1 capsule (40 mg) before bedtime. 180 capsule 07/23/19 025 Active montelukast (Singulair) 10 MG tabletIndications: Asthma without status asthmaticus without complication, unspecified asthma severity, unspecified whether persistent (HCC) Take 1 tablet (10 mg) by mouth at bedtime 90 tablet 07/23/19 025 Active losartan (Cozaar) 50 MG tabletIndications: Hypertension Take 1 tablet (50 mg) by mouth Daily 90 tablet 07/23/19 025 Active metoprolol tartrate (Lopressor) 50 MG tabletIndications: Heart palpitations Take 1 tablet (50 mg) by mouth in the morning and 1 tablet (50 mg) before bedtime. 180 tablet 07/23/19 025 Active amoxicillin (Amoxil) 875 MG tabletIndications: Pharyngitis, unspecified etiology Take 1 tablet (875 mg) by mouth in the morning and 1 tablet (875 mg) before bedtime. Do all this for 10 days. 20 tablet 08/16/19 025 Active Problems Problem Noted Date Diagnosed Date Pharyngitis 08/15/2024 Type 2 diabetes mellitus with other specified co mplication 07/22/2024 Assessment & Plan (07/22/2024 6:11 AM EDT): HTN, HLD Recurrent major depressive disorder, in remissio n 04/14/2024 Alcoholism in remission 04/14/2024 Encounter for screening mamm ogram for malignant neoplasm of breast 09/18/2023 Environmental and seasonal allergies 09/18/2023 Assessment & Plan (07/22/2024 6:15 AM EDT): Current meds: flonase, zyrtec prescribed Assessment & Plan (01/10/2024 1:46 PM EDT): Will trial treatment for allergy trigger Colon cancer screening 09/18/2023 Heart palpitations 08/05/2023 Assessment & Plan (01/10/2024 1:13 PM EDT): Will increase her metoprolol Some related to cough, pt states anxious However trends do support that we could increase Fu in 2 weeks for this Assessment & Plan (10/15/2023 7:48 PM EDT): Continue with b jaylyn med Microscopic hematuria 08/05/2023 Mixed hyperlipidemia 07/27/2023 Assessment & Plan (07/22/2024 6:15 AM EDT): Statin therapy Check labs yearly and prn dose changes Encounter for well woman exestrada m with routine gynecological exam 07/27/2023 Arthritis 07/26/2023 Asthma 07/26/2023 Current smoker 07/26/2023 Overview (07/26/2023): Added secondary to documentation in Social History. Heart murmur 07/26/2023 Malignant neoplasm of cervix 07/26/2023 Urethral stricture 07/26/[address] of the chest 07/26/2023 Anxiety 07/26/2023 Bipolar affective disorder in remission 07/26/19 24 Centrilobular emphysema 07/26/2023 Assessment & Plan (07/22/2024 6:10 AM EDT): Current inhalers: stiolto, albuterol prn Assessment & Plan (10/15/2023 7:47 PM EDT): Continue with current inhalers Cervical spinal stenosis 07/26/2023 Chronic pain syndrome 07/26/2023 Gastroesophageal reflux disease without esophagi tis 07/26/2023 Assessment & Plan (07/22/2024 6:11 AM EDT): Recommendations: freq small meals, nothing to eat or drink at least 2 hours prior to bed, limit caffeine, alcohol, as well as spicy foods Meds to limit or avoid if possible: NSAIDS Elevate HOB if possible Current med: PPI Hiatal hernia 07/26/2023 Essential hypertension, benign 07/26/2023 Assessment & Plan (07/22/2024 9:02 AM EDT): Please check blood pressure daily and record DASH diet Limit caffeine Take medication as directed Contact office if chest pain, pressure, dizziness, shortness of breath, swelling legs Recommend slow position changes Current meds: losartan, metoprolol restart meds Assessment & Plan (10/15/2023 7:49 PM EDT): stable Mediastinal adenopathy 07/26/2023 Lung nodule 07/26/2023 Type 2 diabetes mellitus wit hout complication, without long-term current use of insulin 07/26/2023 Assessment & Plan (07/22/2024 9:03 AM EDT): Has lost weight and now A1c is in goal Pt should attempt to remain as physically active as chronic conditions allow, as well as trying to follow a diet low in carbohydrates, and simple sugars. Current meds: statin, A1c: 5.6% 07/22/24 Vitamin B 12 deficiency 07/26/2023 Vitamin D deficiency 07/26/2023 Resolved Problems Problem Noted Date Diagnosed Date Resolved Date Chronic obstructive pulmonar y disease, unspecified 04/14/2024 07/22/2024 Bronchitis 12/11/2023 04/14/2024 Overview (01/10/2024): [employer] [id number] Exp: 03/25/24 Lot # [id number] Assessment & Plan (01/10/2024 1:18 PM EDT): No wheezing noted, multiple allergies and has been on z pack as well as doxy and steroids Will order health trax Possible allergy trigger?? Samples of vandana 180mg 1 po daily, and #2 samples Lot [id number], exp 08/18 Airsupra sample #1; [id number], exp 04/2024 Astepro allergy nasal spray 2 spray each nostril #2 samples lot [id number], exp 10/17 Assessment & Plan (12/11/2023 11:36 AM EDT): Does not currently have insurance, does not want tested for COVID and her murillo for paxlovid w good RX >1000.00 While I cannot confirm if this is viral or bacterial, she does have underlying risk factors with DM, COPD, asthma Will treat with prednisone (tolerates this despite allergy to solumedrol), cough suppressant, and atb Rest, fluids, and if worsening symptoms go to ER Alcoholism 07/26/2023 04/14/2024 Anemia 07/26/2023 07/22/2024 Depressive disorder 07/26/2023 04/14/19 Diabetes mellitus 07/26/2023 07/26/2023 Hypertension 07/26/2023 07/26/2023 Asthma without status asthma ticus without complication 07/26/2023 04/14/2024 Assessment & Plan (12/11/2023 11:39 AM EDT): [place] samples X3 given Lot: [id number], exp 12/18 Assessment & Plan (10/15/2023 7:48 PM EDT): Continue with current meds no changes Major depression in partial remission 07/26/2023 04/14/2024 Encounters Date Type Department Care Team Description 08/15/2024 Refill [facility] [address] [place] [address] Domi Altamirano NP Pharyngitis, unspecified etiology (Primary Dx) 08/15/2024 Telephone [facility] [address] [place] [address] Domi Altamirano NP 07/22/2024 8:40 AM EDT Office Visit [facility] [address] [place] [id number] Domi Altamirano NP Type 2 diabetes mellitus without complication, without long-term current use of insulin (HCC) (Primary Dx); Type 2 diabetes mellitus with other specified complication (HCC); Mixed hyperlipidemia ; Centrilobular emphysema ([facility]); Essential hypertension, benign ; Gastroesophageal reflux disease without esophagitis; Alcoholism in remission ([facility]); Environmental and seasonal allergies; Chronic pain syndrome; Asthma without status asthmaticus without complication, unspecified asthma severity, unspecified whether persistent (HCC); Heart palpitations 07/22/2024 Bamboo flowsheet [facility] [address] [place] [phone] Domi Altamirano NP from Last 3 Months Family History Medical History Relation Name Comments Cancer Father Heart attack Father Heart disease Father Diabetes Mother Stroke Mother Relation Name Status Comments Father Mother Social History Tobacco Use Types Packs/Day Years Used Date Smoking Tobacco: Every Day Cigarettes Smokeless Tobacco: Never Tobacco Cessation:Ready to Q uit: Not Asked; Counseling Given: Not Answered Alcohol Use Standard Drinks/Week Comments Never 0 [...] declined 10/08/2023 How often do you attend mormonism or confucianism serv ices? Never 10/08/2023 Do you belong to any clubs o r organizations such as mormonism groups, unions, fraternal or athletic groups, or [...] medical care, and heating? Very hard 10/08/2023 [facility] - Occupational Stress [...] any time in the past 12 [facility], were you homeless or living in a skilled nursing (including now)? Yes 10/08/2023 Comments Unknown Sex and Gender Information Value Date Recorded Sex Assigned at Not on file Legal Sex Female 6:59 PM EDT Gender Identity Not on file Sexual Orientation Not on file Last Filed Vital Signs Vital Sign Reading Time Taken Comments Blood Pressure 156/92 07/22/2024 8:33 AM EDT Pulse 111 07/22/2024 8:33 AM EDT Temperature 37.1 C (98.7 F) 07/22/2024 8:33 AM EDT Respiratory Rate 18 07/22/2024 8:33 AM EDT Oxygen Saturation 98% 07/22/2024 8:33 AM EDT Inhaled Oxygen Concentration - - Weight 58.1 kg (128 lb) 07/22/2024 8:33 AM EDT Height 167.6 cm (5' 6 ) 01/10/2024 11:35 AM EDT Body Mass Index 20.66 01/10/2024 11:35 AM EDT Plan of Treatment Upcoming Encounters Date Type Department Care Team (Late st Contact Info) Description 10/21/2024 8:40 AM EDT Office Visit [facility] [address] [place] [address] Domi Altamirano NP [address] [place] [id number] Health Maintenance Due Date Last Done Comments CT Colonography 1975 Colonoscopy 1975 FIT 1975 FOBT 1975 Sigmoidoscopy 1975 Pap Smear 05/03/2024 05/03/2021 Diabetes: Urine Protein Screening 07/25/2024 024 Mammogram 09/24/2024 09/25/2023, 070 04/2023, 06/03/2021 Diabetes: Hemoglobin A1C 01/21/2025 07/22/2024, 05/0 04/2023 Diabetes: Retinopathy Screening 09/24/2025 Colorectal Cancer Screening 10/08/2026 FIT-DNA 10/08/2026 10/09/2023 Cervical Cancer Screening 10/02/2028 HPV/Cotest 10/02/2028 10/03/2023 Influenza Vaccine Discontinued Procedures Procedure Name Priority Date/Time Associated Diagnosis Comments POCT GLYCOSYLATED HEMOGLOBIN (HGB A1C) Routine 07/22/2024 8:47 AM EDT Type 2 diabetes mellitus without complication, without long-term current use of insulin (HCC) LAB COLOGUARD COLON CANCER SCREEN Routine 10/09/2023 1:30 PM EDT Colon cancer screening MM TOMOSYNTHESIS SCREENING BI 09/25/2023 3:19 PM EDT DIABETIC RETINOPATHY SCREENING - OU - BOTH EYES Routine 09/25/2023 8:54 AM EDT from Last 3 Months or Most Recently Relevant to Health Maintenance Results * POCT glycosylated hemoglobin (Hb A1C) docked device (07/22/2024 8:47 AM EDT) Hemoglobin A1C 5.6 Blood Venous blood specimen / Unknown 07/22/2024 8:47 AM EDT Domi Altamirano NP POINT OF CARE TEST ENTER/EDIT O RDERABLES Final Result * Cologuard?? colon cancer screening (10/09/2023 1:30 PM EDT) NONINV COLON CA DNA+OCC BLD SCRN STL-IMP Negative Negative 10/21/2023 5:33 PM EDT [employer] (CLIA #:[id number]) Comment: NEGATIVE TEST RESULT. A negative Cologuard result indicates a low likelihood that a colorectal cancer (CRC) or advanced adenoma (adenomatous polyps with more advanced pre-malignant features) is present. The chance that a person with a negative Cologuard test has a colorectal cancer is less than 1 in 1500 (negative predictive value >99.9%) or has an advanced adenoma is less than 5.3% (negative predictive value 94.7%). These data are based on a prospective cross-sectional study of 10,000 individuals at average risk for colorectal cancer who were screened with both Cologuard and colonoscopy. (Ousmane Fam et al, N Engl J Med 2014;370(14):5513-9707) The normal value (reference range) for this assay is negative. COLOGUARD RE-SCREENING RECOMMENDATION: Periodic colorectal cancer screening is an important part of preventive healthcare for asymptomatic individuals at average risk for colorectal cancer. Following a negative Cologuard result, the [place] [employer] Society and U.S. Multi-Society Task Force screening guidelines recommend a Cologuard re-screening interval of 3 years. References: [place] [employer] Guideline for Colorectal Cancer Screening: https://www.cancer.org/cancer/zlskb-jbeuij-dnfuti/pczvwiekt-ugoscjyyg-qhmzxay/ac s-rec ommendations.html.; Jonathan DK, John CR, Ciro AdamsK, Colorectal Cancer Screening: Recommendations for Physicians and Patients from the U.S. Multi-Society Task Force on Colorectal Cancer Screening , Am J Gastroenterology 2017; 112:6984-6295. TEST DESCRIPTION: Composite algorithmic analysis of stool DNA-biomarkers with hemoglobin immunoassay. Quantitative values of individual biomarkers are not reportable and are not associated with individual biomarker result reference ranges. Cologuard is intended for colorectal cancer screening of adults of either sex, 45 years or older, who are at average-risk for colorectal cancer (CRC). Cologuard has been approved for use by the U.S. FDA. The performance of Cologuard was established in a cross sectional study of average-risk adults aged 50-84. Cologuard performance in patients ages 45 to 49 years was estimated by sub-group analysis of near-age groups. Colonoscopies performed for a positive result may find as the most clinically significant lesion: colorectal cancer [4.0%], advanced adenoma (including sessile serrated polyps greater than or equal to 1cm diameter) [20%] or non- advanced adenoma [31%]; or no colorectal neoplasia [45%]. These estimates are derived from a prospective cross-sectional screening study of 10,000 individuals at average risk for colorectal cancer who were screened with both Cologuard and colonoscopy. (Ousmane Buitrago al, N Engl J Med 2014;370(14):5163-9252.) Cologuard may produce a false negative or false positive result (no colorectal cancer or precancerous polyp present at colonoscopy follow up). A negative Cologuard test result does not guarantee the absence of CRC or advanced adenoma (pre-cancer). The current Cologuard screening interval is every 3 years. ([place] [employer] and U.S. Multi-Society Task Force). Cologuard performance data in a 10,000 patient pivotal study using colonoscopy as the reference method can be accessed at the following location: www.[employer]/results. Additional description of the Cologuard test process, warnings and precautions can be found at www.[employer].com. Stool specimen (specimen) 10/09/2023 1:30 PM EDT 10/11/2023 8:01 AM EDT Domi Altamirano NP LAB MOLECULAR DIAGNOSTICS ORDER DEANDRE Final Result .[employer] (CLIA #:[id number]) [address] [place] [address], [employer] (CLIA #:[id number]) [address] [place] [address] * MM TOMOSYNTHESIS SCREENING BI (09/25/2023 3:19 PM EDT) Anatomical Region Laterality Modality Other 09/25/2023 3:19 PM EDT Narrative 09/25/2023 3:20 [place] [address] Mammography Report Signed Patient: RYLEE BURTON MR#: [id number] : 1975 Acct:[id number] Age/Sex: 48 / F ADM Date: 09/24/23 Loc: MAMMO Attending Dr: Domi Altamirano NP Ordering Physician: Domi Altamirano NP Results: Date of Service: 09/24/23 Follow Up: Procedure(s): MM tomosynthesis screening BI Accession Number(s): [id number] cc: Domi Altamirano NP Patient Name: RYLEE BURTON MR#: [id number] : 1975 Exam Date: 09/24/2023 Ordering Doctor: [...] lymphoma cancer at age 63. LOCATION: [facility] BREAST COMPOSITION: The breasts are heterogeneously dense,which [...] Signed By: 09/25/23 1520 DD/ 1519 TD/TT: Preparation Supervisor: Procedure Note Radiology, Radiologist, MD - 09/25/2023 [facility] [place] [id number] Mammography Report Signed Patient: RYLEE BURTON KMR#: [id number] : 1975Acct:[id number] Age/Sex: 48 / FADM Date: 09/24/23 Loc: MAMMO Attending Dr: Domi Altamirano NP Ordering Physician: Domi Altamirano NPResults: Date of Service: 09/24/23Follow Up: Procedure(s): MM tomosynthesis screening BI Accession Number(s): [id number] cc: Domi Altamirano NP Patient Name: RYLEE BURTON MR#: [id number] : 1975 Exam Date: 09/24/2023 Ordering Doctor: [...] lymphoma cancer at age 63. LOCATION: [facility] BREAST COMPOSITION: The breasts are heterogeneously dense,which [...] M.D. Signed By:09/25/23 1520 DD/ 1519 TD/TT: Preparation Supervisor: Domi Altamirano NP [facility] Final Result * Diabetic Retinopathy Screening - OU - Both Eyes (09/25/2023 8:54 AM EDT) Anatomical Region Laterality Modality Head Other Seven Leon OD OPHTH PHOTOGRAPHY Final Result from Last 3 Months or Most Recently Relevant to Health Maintenance Insurance * Guarantor: Rylee Burton Account Type Relation to Patient Date of Phone Billing Address Personal/Family Self 1975 [facility] [address] [facility] [address] [place] [address] [facility] Care Teams Dyeing Machine Tender Relationship Specialty Start Date End Date Hiren Horton MD [address] [place] [phone] PCP - General Family Medicine 07/26/23 Domi Altamirano NP [address] [place] [address] Nurse Practitioner Family Medicine 03/26/22 Domi Altamirano NP [address] [place] [phone] Nurse Practitioner Family Medicine 07/26/23
--- OUTSIDE RECORDS SUMMARY | 2024-09-15 17:36 | XMS_ITS | Encounter Summary ---
Demographics Address [address] [place] [address] Mobile Phone Email Address Preferred Language en Marital Status Unmarried Nondenominational Affiliation Unknown Race White Ethnic Group Not or Lati no Author Organization [facility] Address [address] [place] [address] Care Team Providers Care Brake Repairer Hydraulic Name Role Phone Domi Altamirano LACING OPERATOR Unavailable [phone] Hiren Horton MD Primary Care Provider [phone] Domi Altamirano LACING OPERATOR Unavailable [phone] Encounter Details Date Type Department Care Team (Late st Contact Info) Description 10/09/2023 Clinisync Result Encounter [facility] External Department Unsolicited Provider, Generic External Data Social History Tobacco Use Types Packs/Day Years [...] declined 10/08/2023 How often do you attend taoism or mormonism serv ices? Never 10/08/2023 Do you belong to any clubs o r organizations such as taoism groups, unions, fraternal or athletic groups, or [...] medical care, and heating? Very hard 10/08/2023 [facility] Occupat ional Health - Occupational Stress [...] any time in the past 12 m [facility], were you homeless or living in a long-term (including now)? Yes 10/08/2023 Comments Unknown Sex [...] Visit [facility] [address] [place] [address] Domi Altamirano NP [address] [place] [address] documented as of this encounter Procedures Procedure Name Priority Date/Time Associated Diagnosis Comments US PELVIS TRANSVAGINAL 10/09/2023 7:06 AM EDT documented in this encounter Results * US PELVIS TRANSVAGINAL (10/09/2023 7:06 AM EDT) Anatomical Region Laterality Modality Other 10/09/2023 7:06 AM EDT Narrative 10/09/2023 7:09 [place] [address] Ultrasound Report Signed Patient: JAIME MERRILL MR#: [id number] : 1975 Acct:[id number] Age/Sex: 48 / F ADM Date: 10/08/23 Loc: US Attending Dr: Domi Howard NP Ordering Physician: Domi Howard NP Date of Service: 10/08/23 Procedure(s): US pelvis transvaginal Accession Number(s): [id number] cc: Domi Altamirano LACING OPERATOR; Domi Howard NP [place] [id number] Patient Name: JAIME MERRILL MRN: [id number] date: 1975 Sex: F Assigned Patient Location: US Current Patient Location: Accession/Order Number: [id number] Exam Date: 10/08/2023 18:28 Report Date: 10/09/2023 07:06 At the request of: DOMI HOWARD Procedure: US pelvis transvaginal EXAMINATION: US pelvis transvaginal HISTORY: ABNORMAL UTERINE BLEEDING N93.9 COMPARISON: No relevant comparison available. FINDINGS: Transvaginal images The uterus is normal in size and contour measuring 7.7 x 4.4 x 4.0 cm. 3 mm echogenic focus with acoustic shadowing likely representing myometrial calcification Endometrium measures 8 mm, normal. Area of anechoic echogenicity cervix measuring 1.2 cm, nabothian cyst is favored The right ovary is normal measuring 3.1 x 2.2 x 2.1 cm. Normal color and Doppler flow The left ovary is normal measuring 2.3 x 1.7 x 1.4 cm. Normal color and Doppler flow No free fluid US/US pelvis transvaginal IMPRESSION: No acute abnormality Electronically authenticated by: JOAO BARBOSA Date: 10/09/2023 07:06 Dictated By: Joao Barbosa M.D. Signed By: 10/09/2309 DD/ 5 TD/TT: Artist Representative: Procedure Note Radiology, Radiologist, MD - 10/09/2023 [place] [address] Ultrasound Report Signed Patient: JAIME MERRILL KMR#: [id number] : 1975Acct:[id number] Age/Sex: 48 / FADM Date: 10/08/23 Loc: US Attending Dr: Domi Howard NP Ordering Physician: Domi Howard NP Date of Service: 10/08/23 Procedure(s): US pelvis transvaginal Accession Number(s): [id number] cc: Domi Altamirano NP; Domi Howard NP [place] [id number] Patient Name: JAIME MERRILL MRN: [facility]:[id number] date: 1975 Sex: F Assigned Patient Location: US Current Patient Location: Accession/Order Number: [id number] Exam Date: 10/08/2023 18:28 Report Date: 10/09/2023 07:06 At the request of: DOMI HOWARD Procedure: US pelvis transvaginal EXAMINATION: US pelvis transvaginal HISTORY: ABNORMAL UTERINE BLEEDING N93.9 COMPARISON: No relevant comparison available. FINDINGS: Transvaginal images The uterus is normal in size and contour measuring 7.7 x 4.4 x 4.0 cm. 3mm echogenic focus with acoustic shadowing likely representing myometrial calcification Endometrium measures 8 mm, normal. Area of anechoic echogenicity cervix measuring 1.2 cm, nabothian cyst is favored The right ovary is normal measuring 3.1 x 2.2 x 2.1 cm. Normal color and Doppler flow The left ovary is normal measuring 2.3 x 1.7 x 1.4 cm. Normal color and Doppler flow No free fluid US/US pelvis transvaginal IMPRESSION: No acute abnormality Electronically authenticated by: JOAO BARBOSA Date: 10/09/2023 07:06 Dictated By: Joao Barbosa M.D. Signed By:10/09/2309 DD/ TD/TT: Artist Representative: us Generic External Data Provider [facility] Final Result documented in this encounter Visit Diagnoses Not on filedocumented in this encounter Care Teams Brake Repairer Hydraulic Relationship Specialty Start Date End Date Hiren Horton MD [address] [place] [id number] PCP - General Family Medicine 07/26/23 Domi Altamirano NP [address] [place] [address] Nurse Practitioner Family Medicine 03/26/22 Domi Altamirano NP [address] [place] [phone] Nurse Practitioner Family Medicine 07/26/23 documented as of this encounter
--- OUTSIDE RECORDS SUMMARY | 2024-09-15 17:36 | XMS_ITS | Clinical Summary ---
Author Organization [facility] Address [id number] 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 Active omeprazole (PriLOSEC) 40 mg capsule Take 1 capsule (40 mg total) by mouth in the morning. Active carvedilol (COREG) 12.5 mg tablet Take 1 tablet (12.5 mg total) by mouth in the morning and 1 tablet (12.5 mg total) in the evening. Take with meals. Active albuterol (PROVENTIL HFA;VENTOLIN HFA) 90 mcg/actuation inhaler Inhale 2 puffs every 6 (six) hours as needed for wheezing. Active albuterol (PROVENTIL,VENT URMILA) 2.5 mg /3 mL (0.083 %) nebulizer solution Inhale 3 mL (2.5 mg total) by nebulization every 6 (six) hours as needed for wheezing. Active LORazepam (ATIVAN) 1 mg tablet Take 1 tablet (1 mg total) by mouth 3 (three) times a day as needed for anxiety for up to 10 doses. 10 tablet 7 Active busPIRone (BUSPAR) 15 mg tablet Take 1 tablet (15 mg total) by mouth. 7 Active gabapentin (NEURONTIN) 300 mg capsule Take 1 capsule (300 mg total) by mouth. Active tiotropium (SPIRIVA) 18 mcg per inhalation capsule Place 1 capsule into inhaler and inhale once daily. Active Active Problems No known active problems Family History Medical History Relation Name Comments Cancer Father COLON-METASTATI C Coronary artery disease Father Breast cancer Maternal Aunt 1 Diabetes Maternal Aunt 1 Cancer Maternal Aunt 2 LUNG Diabetes Maternal Aunt 2 Diabetes Maternal Grandmother Lymphoma Maternal great-grandmother Diabetes Mother Stroke Mother Heart attack Paternal Grandfather Diabetes Paternal Uncle Heart attack Paternal Uncle Leukemia Paternal great-grandmother Polycystic kidney disease Sister 1 Polycystic kidney disease Sister 2 Relation Name Status Comments Father Maternal Aunt 1 Alive Maternal Aunt 2 Alive Maternal Grandmother Maternal great-grandmother Mother Paternal Grandfather Paternal Uncle Alive Paternal great-grandmother Sister 1 Sister 2 Social History Tobacco Use Types Packs/Day Years Used Date Smoking Tobacco: Every Day Cigarettes Smokeless Tobacco: Never Tobacco Cessation:Ready to Q uit: Not Asked; Counseling Given: Not Answered Alcohol Use Standard Drinks/Week Comments Yes 0 (1 standard drink = 0.6 oz pur e alcohol) OCCASIONAL Childcare Answer Date Recorded Childcare Unknown 09/04/2018 Employment Answer Date Recorded Employment Unknown 09/04/2018 Purpose - Life Answer Date Recorded Purpose and direction in life Unknown Comments No Sex and Gender Information Value Date Recorded Sex Assigned at Not on file Legal Sex Female 11:24 AM EDT Gender Identity Not on file Sexual Orientation Not on file Last Filed Vital Signs Vital Sign Reading Time Taken Comments Blood Pressure 138/98 10/03/2023 3:09 PM EDT Pulse 124 05/16/2017 1:51 PM EST Temperature 36.4 C (97.5 F) 05/16/2017 1:44 PM EST Respiratory Rate 20 05/16/2017 1:51 PM EST Oxygen Saturation 100% 05/16/2017 1:51 PM EST Inhaled Oxygen Concentration - - Weight 64.9 kg (143 lb) 10/03/2023 3:09 PM EDT Height 167.6 cm (5' 6 ) 10/03/2023 3:09 PM EDT Body Mass Index 23.08 10/03/2023 3:09 PM EDT Plan of Treatment Health Maintenance Due Date Last Done Comments Tobacco Counseling 1975 Depression Screening 1987 DTaP,Tdap and Td Vaccines (1 - Tdap) 08/23/1994 Adult BMI Screening 10/02/2024 10/03/2023 Tobacco Screening 10/02/2024 10/03/2023 Influenza Vaccine 11/24/2024 Pap Smear 10/02/2026 10/03/2023, 10/03/2023 Medical Devices Not on file Procedures Procedure Name Priority Date/Time Associated Diagnosis Comments HIGH RISK HPV W/FLACA Routine 10/03/2023 4:33 AM EDT Cervical smear, as part of routine gynecological examination from Last 3 Months or Most Recently Relevant to Health Maintenance Results * High risk HPV w/flaca (10/03/2023 4:33 AM EDT) Hpv specimen type ThinPrep 10/04/2023 4:33 AM EDT [facility] Hpv 16 Negative Negative^N egative 10/04/2023 1:07 PM EDT [facility] Hpv 18 Negative Negative^N egative 10/04/2023 1:07 PM EDT [facility] Other high risk hpv Negative Negative^N egative 10/04/2023 1:07 PM EDT [facility] Comment: HPV types 31,33,35,39,45,52,56,58,59,66 and 68 DNA were undetectable. 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
--- NOTE | 2024-09-15 17:38 | ECG_ITS ---
[facility] Test Date: 2024-09-15 Pat Name: JAIME BURTON Department: Room: - Gender: Female Bottom Stainer: : 1975 Requested By: 0923 Order Number: [id number] Reading MD: EDUARDO JACKSON M.D. Measurements Intervals Vale Rate: 105 P: 55 DE: 160 QRS: 70 QRSD: 72 T: 75 QT: 354 QTc: 415 Interpretive Statements 1120 Sinus tachycardia 9140 abnormal rhythm ECG Compared to ECG 12/17/2023 13:13:36 No significant changes Electronically Signed On 09-15-2024 18:28:06 EDT by EDUARDO JACKSON M.D.
[2024-09-15] MEDS: ONDANSETRON PF 4 MG/2 ML VIAL IV (17:54)
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
[2024-09-15 18:23] LABS: Mean Corpuscular HGB Conc 30.3 g/dL (29.9-35.2); Mean Corpuscular Hemoglobin 21.3 pg (26.7-34.0); Mean Corpuscular Volume 70.4 fL (81.0-99.0); Mean Platelet Volume 8.1 fL (9.5-13.5); Red Blood Count 2.77 10^6/uL (4.20-5.40); Red Cell Distribution Width 18.5 % (11.0-15.0); White Blood Count 15.3 10^3/uL (4.0-11.0)
[2024-09-15 18:45] LABS: Hematocrit 19.5 % (36.0-48.0); Hemoglobin 5.9 g/dL (12.0-16.0)
[2024-09-15 18:46] LABS: Platelet Count 1049 10^3/uL (150-450)
[2024-09-15 18:47] LABS: INR 1.26; Partial Thromboplastin Time 32.6 sec (22.3-36.2); Prothrombin Time 13.1 sec (9.0-11.6)
[2024-09-15 18:49] LABS: Alanine Aminotransferase 14 U/L (14-59); Albumin Globulin Ratio 0.3; Albumin Level 1.9 g/dL (3.4-5.0); Alkaline Phosphatase 214 U/L (46-116); Anion Gap 14.4; Aspartate Amino Transferase 14 U/L (15-37); BUN Creatinine Ratio 14.4; Bilirubin Total 0.4 mg/dL (0.2-1.0); Calcium 8.7 mg/dL (8.5-10.1); Carbon Dioxide 29.4 mmol/L (21.0-32.0); Chloride 95 mmol/L (98-107); Creatine Kinase 15 U/L (26-192); Estimated GFR (African America >60 (>=60 mL/min/1.73m^2); Estimated GFR (Non-African Ame 56 (>=60 mL/min/1.73m^2); Globulin 5.5 g/dL; Glucose 157 mg/dL (74-106); Sodium 136 mmol/L (136-145); Total Protein 7.4 g/dL (6.4-8.2); Troponin I High Sensitivity <4.0 pg/mL (4.0-51.3)
[2024-09-15 18:53] LABS: Potassium 2.8 mmol/L (3.5-5.1)
[2024-09-15 19:28] LABS: Hypersegmented Neutrophils 2+; Lymphocytes Absolute Manual 4.13 10^3/uL (1.20-3.80); Segmented Neut Absolute Manual 8.72 10^3/uL (1.4-6.5)
[2024-09-15] MEDS: POTASSIUM BICARBONATE/CIT 25 MEQ TABLET EFF 50 MEQ PO (19:33)
[2024-09-15 20:07] LABS: Internal Control Within Normal Limits; Occult Blood Negative
[2024-09-15 20:20] LABS: Percent Iron Saturation 6.5 %
[2024-09-15 20:29] LABS: Magnesium 1.9 mg/dL (1.8-2.4)
[2024-09-15 20:33] LABS: Reticulocyte Pct Auto 1.58 % (0.60-3.10)
[2024-09-15] MEDS: NICOTINE 21 MG PATCH.TD24 TD (20:36)
[2024-09-15] MEDS: POTASSIUM CHLORIDE IN 0.9%NACL 1,000 ML 250 ML IV (20:37)
--- NOTE | 2024-09-15 21:53 | PC.NURSE ---
patient declines advocate
--- NOTE | 2024-09-15 21:53 | PC.NURSE ---
patient declines patient advocate at this time.
[2024-09-16] VITALS (26 sets, daily range): BP systolic 103–146; BP diastolic 69–88; PULSE 95–115; TEMP 36.6–36.9; O2SAT 93–97
[2024-09-16 01:45] LABS: Bilirubin Urine NEGATIVE (NEGATIVE); Blood Urine TRACE-L (NEGATIVE); Clarity Urine CLEAR (CLEAR); Color Urine YELLOW (YELLOW); Glucose Urine UA NEGATIVE (NEGATIVE); Ketones Urine NEGATIVE (NEGATIVE); Leukocyte Esterase Urine NEGATIVE (NEGATIVE); Nitrite Urine NEGATIVE (NEGATIVE); Protein Urine 30 mg/dL (NEG/TRACE)
[2024-09-16 01:52] LABS: Bacteria Urine TRACE #/HPF (NONE SEEN); Cast Seen? NONE SEEN #/LPF (NONE SEEN); Crystals Seen? None Seen #/HPF (None Seen); Mucus Urine NONE SEEN (NONE SEEN); RBC Urine NONE SEEN #/HPF (0-2); Squamous Epithelial Cell Urine RARE #/LPF (NONE/RARE); Urine Culture Indicated NO; WBC Urine 0-2 #/HPF (NONE SEEN)
[2024-09-16] MEDS: PANTOPRAZOLE SODIUM 40 MG TABLET.DR PO (05:40)
[2024-09-16 06:36] LABS: Mean Corpuscular Hemoglobin 23.9 pg (26.7-34.0); Mean Corpuscular Volume 74.6 fL (81.0-99.0); Mean Platelet Volume 8.1 fL (9.5-13.5); Platelet Count 872 10^3/uL (150-450); Red Blood Count 2.76 10^6/uL (4.20-5.40); Red Cell Distribution Width 19.5 % (11.0-15.0); White Blood Count 13.3 10^3/uL (4.0-11.0)
[2024-09-16 06:50] LABS: Hemoglobin 6.6 g/dL (12.0-16.0)
[2024-09-16 06:51] LABS: Hematocrit 20.6 % (36.0-48.0)
[2024-09-16 07:07] LABS: Alanine Aminotransferase 10 U/L (14-59); Albumin Globulin Ratio 0.3; Albumin Level 1.5 g/dL (3.4-5.0); Alkaline Phosphatase 189 U/L (46-116); Anion Gap 11.8; Aspartate Amino Transferase 13 U/L (15-37); BUN Creatinine Ratio 19.7; Bilirubin Total 0.3 mg/dL (0.2-1.0); Calcium 7.8 mg/dL (8.5-10.1); Carbon Dioxide 26.1 mmol/L (21.0-32.0); Chloride 106 mmol/L (98-107); Estimated GFR (African America >60 (>=60 mL/min/1.73m^2); Estimated GFR (Non-African Ame >60 (>=60 mL/min/1.73m^2); Globulin 4.7 g/dL; Glucose 179 mg/dL (74-106); Potassium 3.9 mmol/L (3.5-5.1); Sodium 140 mmol/L (136-145); Total Protein 6.2 g/dL (6.4-8.2)
[2024-09-16 07:20] LABS: Lymphocytes Absolute Manual 3.19 10^3/uL (1.20-3.80); Monocytes Absolute Manual 0.93 10^3/uL (0.30-0.80); Segmented Neut Absolute Manual 8.77 10^3/uL (1.4-6.5)
[2024-09-16 07:21] LABS: Anisocytosis 1+; Hypersegmented Neutrophils 1+; Metamyelocytes Absolute Manual 0.13; Myelocytes Absolute Manual 0.26
[2024-09-16 07:22] LABS: Microcytosis 1+
--- NOTE | 2024-09-16 09:00 | CM.NOTE ---
Rounds made with Dr. Ku, discussed with pt labs and plan of care. Dr. Ku will consult hematology for further recommendations. Pt will also receive another unit of PRBC's, and further testing. No discharge today.
[2024-09-16] MEDS: 0.9 % SODIUM CHLORIDE 250 ML 10 ML IV (09:36)
[2024-09-16] MEDS: FOLIC ACID 1 MG TABLET PO (09:36)
--- NOTE | 2024-09-16 09:52 | CT_ITS ---
The [address] [address] Patient Name: JAIME BURTON MRN: [id number] date: 1975 Sex: F Assigned Patient Location: Current Patient Location: Accession/Order Number: [id number] Exam Date: 09/16/2024 10:12 Report Date: 09/16/2024 10:36 At the request of: EMILY WALLACE MD Procedure: CT abdomen pelvis wo con CT CHEST, ABDOMEN AND PELVIS WITHOUT CONTRAST CLINICAL DATA: Syncopal episode yesterday at work. Anemia. COMPARISON: [facility] Chest CT 05/12/2022 (coronal and sagittal only) Spiral images were obtained through the chest, abdomen and pelvis without contrast. Images of the chest were reviewed using both narrow and wide window settings. This CT exam was performed using one or more following dose reduction techniques: Automated exposure control, adjustment of the mA and/or kV according to patient size, or use of iterative reconstruction technique. The heart is normal size. There is no pericardial effusion. There is minor coronary disease. No aortic aneurysm is identified. There are continued enlarged mediastinal lymph nodes however there is slight interval decrease in size since the comparison. The prevascular lymph node with previous short axis dimension of 17 mm is now 13 mm. The williams are more difficult to assess without contrast though there is no obvious change in contour. There is continued bilateral axillary lymphadenopathy, greater on the right. Comparison is slightly limited due to differences in positioning however some lymph nodes may be slightly larger. A small hiatal hernia is present. There is mild apical scarring. There is also scarring and/or atelectasis at the bases, greater on the left. No additional consolidation, pleural effusion or pneumothorax is seen. There are some airspace lucencies. A soft tissue nodule is visualized at the anterolateral left upper lobe measuring up to 14 mm, previously 12 mm. No developing nodularity is noted. Assessment of the intra-abdominal organs is slightly limited by the absence of contrast. The gallbladder surgically absent. No common duct stones are seen. No intrahepatic masses are identified. The spleen, pancreas and adrenal glands show no acute findings. There are no renal calculi or hydronephrosis. The right kidney is slightly ptotic. There is atherosclerotic plaque at the aorta and iliac arteries. There are enlarged retroperitoneal lymph nodes. No ascites is seen. There is large amount of food debris within the stomach. Small bowel loops are not distended. Stool is visualized along the colon. There is slight levoscoliotic curvature and mild degenerative changes at the spine. Slight wedge deformity is noted at the superior endplate of L1, also present on the comparison chest CT. Images through the pelvis show no dilated small bowel. The appendix is not discretely seen. There is stool within the colon. There is no prominent diverticular disease. There is a left ovarian cyst measuring approximately 3 cm in size. There are Essure sterilization inserts. The urinary bladder is collapsed, imaging assessment. There is no pathologic pelvic lymphadenopathy or ascites. There is degenerative change at the SI joints, greater on the left. CT/CT chest wo con IMPRESSION: CONTINUED MEDIASTINAL, AXILLARY AND UPPER ABDOMINAL LYMPHADENOPATHY. CORRELATION IS RECOMMENDED WITH HISTORY, PRIOR CT REPORT AND FOLLOW-UP AT THE TIME OF THE OUTSIDE COMPARISON. NEOPLASM IS NOT EXCLUDED. LEFT UPPER LOBE PULMONARY NODULE, SLIGHTLY LARGER. ATELECTASIS AND SCARRING. HIATAL HERNIA. NO BOWEL OR URINARY TRACT OBSTRUCTION. LEFT OVARIAN CYST. Impression dictated by: Iraida Bach M.D. 09/16/2024 10:36 AM Dictation Location: [place] [address] Electronically authenticated by: [id number] Y Date: 09/16/2024 10:36
--- NOTE | 2024-09-16 09:52 | CT_ITS ---
The [address] [address] Patient Name: JAIME BURTON MRN: [id number] date: 1975 Sex: F Assigned Patient Location: [place] Current Patient Location: [place] Accession/Order Number: [id number] Exam Date: 09/16/2024 10:09 Report Date: 09/16/2024 10:12 At the request of: EMILY WALLACE MD Procedure: CT head/brain wo con CLINICAL DATA: Syncopal episode at work yesterday. Anemia. CT BRAIN WITHOUT CONTRAST: CLINICAL HISTORY: syncope COMPARISON: None TECHNIQUE: Contiguous axial unenhanced images were obtained through the brain. This CT exam was performed using one or more following dose reduction techniques: Automated exposure control, adjustment of the mA and/or kV according to patient size, or use of iterative reconstruction technique. FINDINGS: The ventricles are normal in size and position. There are no areas of abnormal attenuation. There is no hemorrhage, mass effect or extra-axial collections. The imaged paranasal sinuses and mastoid air cells are clear. There is minor vertebral artery and carotid siphon plaque. CT/CT head/brain wo con IMPRESSION: NO ACUTE INTRACRANIAL ABNORMALITY. Impression dictated by: Iraida Bach M.D. 09/16/2024 10:12 AM Dictation Location: [place] [address] Electronically authenticated by: [id number] Y Date: 09/16/2024 10:12
--- NOTE | 2024-09-16 09:52 | CT_ITS ---
The [address] [address] Patient Name: JAIME BURTON MRN: [id number] date: 1975 Sex: F Assigned Patient Location: Current Patient Location: Accession/Order Number: [id number] Exam Date: 09/16/2024 10:12 Report Date: 09/16/2024 10:36 At the request of: EMILY WALLACE MD Procedure: CT abdomen pelvis wo con CT CHEST, ABDOMEN AND PELVIS WITHOUT CONTRAST CLINICAL DATA: Syncopal episode yesterday at work. Anemia. COMPARISON: [facility] Chest CT 05/12/2022 (coronal and sagittal only) Spiral images were obtained through the chest, abdomen and pelvis without contrast. Images of the chest were reviewed using both narrow and wide window settings. This CT exam was performed using one or more following dose reduction techniques: Automated exposure control, adjustment of the mA and/or kV according to patient size, or use of iterative reconstruction technique. The heart is normal size. There is no pericardial effusion. There is minor coronary disease. No aortic aneurysm is identified. There are continued enlarged mediastinal lymph nodes however there is slight interval decrease in size since the comparison. The prevascular lymph node with previous short axis dimension of 17 mm is now 13 mm. The williams are more difficult to assess without contrast though there is no obvious change in contour. There is continued bilateral axillary lymphadenopathy, greater on the right. Comparison is slightly limited due to differences in positioning however some lymph nodes may be slightly larger. A small hiatal hernia is present. There is mild apical scarring. There is also scarring and/or atelectasis at the bases, greater on the left. No additional consolidation, pleural effusion or pneumothorax is seen. There are some airspace lucencies. A soft tissue nodule is visualized at the anterolateral left upper lobe measuring up to 14 mm, previously 12 mm. No developing nodularity is noted. Assessment of the intra-abdominal organs is slightly limited by the absence of contrast. The gallbladder surgically absent. No common duct stones are seen. No intrahepatic masses are identified. The spleen, pancreas and adrenal glands show no acute findings. There are no renal calculi or hydronephrosis. The right kidney is slightly ptotic. There is atherosclerotic plaque at the aorta and iliac arteries. There are enlarged retroperitoneal lymph nodes. No ascites is seen. There is large amount of food debris within the stomach. Small bowel loops are not distended. Stool is visualized along the colon. There is slight levoscoliotic curvature and mild degenerative changes at the spine. Slight wedge deformity is noted at the superior endplate of L1, also present on the comparison chest CT. Images through the pelvis show no dilated small bowel. The appendix is not discretely seen. There is stool within the colon. There is no prominent diverticular disease. There is a left ovarian cyst measuring approximately 3 cm in size. There are Essure sterilization inserts. The urinary bladder is collapsed, imaging assessment. There is no pathologic pelvic lymphadenopathy or ascites. There is degenerative change at the SI joints, greater on the left. CT/CT abdomen pelvis wo con IMPRESSION: CONTINUED MEDIASTINAL, AXILLARY AND UPPER ABDOMINAL LYMPHADENOPATHY. CORRELATION IS RECOMMENDED WITH HISTORY, PRIOR CT REPORT AND FOLLOW-UP AT THE TIME OF THE OUTSIDE COMPARISON. NEOPLASM IS NOT EXCLUDED. LEFT UPPER LOBE PULMONARY NODULE, SLIGHTLY LARGER. ATELECTASIS AND SCARRING. HIATAL HERNIA. NO BOWEL OR URINARY TRACT OBSTRUCTION. LEFT OVARIAN CYST. Impression dictated by: Iraida Bach M.D. 09/16/2024 10:36 AM Dictation Location: [place] [address] Electronically authenticated by: [id number] Y Date: 09/16/2024 10:36
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
[2024-09-16 11:14] LABS: Reticulocyte Pct Auto 1.16 % (0.60-3.10)
[2024-09-16 11:15] LABS: Lactate Dehydrogenase 115 U/L (81-234)
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
[2024-09-16] MEDS: IRON SUCROSE COMPLEX 200 MG in 0.9 % SODIUM CHLORIDE 100 ML 220 MG IV (12:47)
[2024-09-16 14:51] LABS: Basophils Percent Auto 0.1 % (0.2-2.0); Eosinophils Absolute Auto 0.1 10^3/uL (0.0-0.7); Eosinophils Percent Auto 0.6 % (0.9-7.0); Hemoglobin 7.4 g/dL (12.0-16.0); Immature Granulocytes Abs Auto 0.14 10^3/uL (0.00-0.03); Immature Granulocytes Pct Auto 0.9 % (0.0-0.5); Lymphocytes Absolute Auto 3.9 10^3/uL (1.2-3.8); Lymphocytes Percent Auto 24.7 % (20.5-60.0); Mean Corpuscular HGB Conc 32.5 g/dL (29.9-35.2); Mean Corpuscular Hemoglobin 24.7 pg (26.7-34.0); Mean Corpuscular Volume 76.3 fL (81.0-99.0); Mean Platelet Volume 8.1 fL (9.5-13.5); Monocytes Percent Auto 12.6 % (1.7-12.0); Neutrophils Absolute Auto 9.7 10^3/uL (1.4-6.5); Neutrophils Percent Auto 61.1 % (43.0-75.0); Platelet Count 850 10^3/uL (150-450); Red Blood Count 2.99 10^6/uL (4.20-5.40); Red Cell Distribution Width 18.8 % (11.0-15.0); White Blood Count 15.9 10^3/uL (4.0-11.0)
[2024-09-16 15:02] LABS: Hematocrit 22.8 % (36.0-48.0)
[2024-09-16] MEDS: NICOTINE 14 MG PATCH.TD24 TD (15:58)
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
[2024-09-16] MEDS: ONDANSETRON PF 4 MG/2 ML VIAL IV (20:13)
[2024-09-16] MEDS: ACETAMINOPHEN 325 MG TABLET 650 MG PO (20:13)
[2024-09-16] MEDS: LIDOCAINE 5% PATCH 1 PATCH TOPICAL (23:54)
[2024-09-17] VITALS (15 sets, daily range): BP systolic 134–169; BP diastolic 83–94; PULSE 97–130; TEMP 36.6–37.4; O2SAT 91–95
[2024-09-17] MEDS: ACETAMINOPHEN 325 MG TABLET 650 MG PO ×3 (03:14→17:41)
[2024-09-17 04:07] LABS: Vitamin B12 556 pg/mL (232-1245)
[2024-09-17 06:05] LABS: Basophils Percent Auto 0.2 % (0.2-2.0); Eosinophils Absolute Auto 0.1 10^3/uL (0.0-0.7); Eosinophils Percent Auto 0.6 % (0.9-7.0); Hematocrit 24.3 % (36.0-48.0); Hemoglobin 7.8 g/dL (12.0-16.0); Immature Granulocytes Abs Auto 0.16 10^3/uL (0.00-0.03); Lymphocytes Percent Auto 24.7 % (20.5-60.0); Mean Corpuscular HGB Conc 32.1 g/dL (29.9-35.2); Mean Corpuscular Hemoglobin 24.5 pg (26.7-34.0); Mean Corpuscular Volume 76.2 fL (81.0-99.0); Mean Platelet Volume 8.3 fL (9.5-13.5); Monocytes Absolute Auto 1.9 10^3/uL (0.3-0.8); Monocytes Percent Auto 11.5 % (1.7-12.0); Neutrophils Absolute Auto 10.1 10^3/uL (1.4-6.5); Platelet Count 964 10^3/uL (150-450); Red Blood Count 3.19 10^6/uL (4.20-5.40); Red Cell Distribution Width 19.6 % (11.0-15.0); White Blood Count 16.2 10^3/uL (4.0-11.0)
[2024-09-17 06:29] LABS: Alanine Aminotransferase 10 U/L (14-59); Albumin Globulin Ratio 0.3; Albumin Level 1.6 g/dL (3.4-5.0); Alkaline Phosphatase 211 U/L (46-116); Aspartate Amino Transferase 13 U/L (15-37); BUN Creatinine Ratio 15.8; Bilirubin Total 0.3 mg/dL (0.2-1.0); Calcium 8.6 mg/dL (8.5-10.1); Carbon Dioxide 27.9 mmol/L (21.0-32.0); Chloride 103 mmol/L (98-107); Estimated GFR (African America >60 (>=60 mL/min/1.73m^2); Estimated GFR (Non-African Ame >60 (>=60 mL/min/1.73m^2); Glucose 98 mg/dL (74-106); Magnesium 1.6 mg/dL (1.8-2.4); Potassium 3.9 mmol/L (3.5-5.1); Sodium 140 mmol/L (136-145); Total Protein 6.6 g/dL (6.4-8.2)
[2024-09-17] MEDS: PANTOPRAZOLE SODIUM 40 MG VIAL IV (08:22)
[2024-09-17] MEDS: FOLIC ACID 1 MG TABLET PO (08:22)
[2024-09-17 10:11] LABS: Influenza Virus A Antigen Negative; Influenza Virus B Antigen Negative; Internal Control Within Normal Limits; Respiratory Syncytial Virus Not Detected (NOT DETECTE); SARS-CoV-2 Ag NEGATIVE (NEGATIVE)
[2024-09-17] MEDS: LOSARTAN POTASSIUM 50 MG TABLET PO (10:13)
[2024-09-17] MEDS: METOPROLOL TARTRATE 50 MG TABLET PO ×2 (10:13→21:10)
[2024-09-17] MEDS: FLUTICASONE PROPIONATE 50 MCG NASAL SPRAY 2 SPRAY NS ×2 (10:13→21:11)
[2024-09-17] MEDS: CETIRIZINE HCL 10 MG TABLET PO (10:13)
[2024-09-17] MEDS: GUAIFENESIN 200 MG/10 ML LIQUID PO ×2 (10:13→23:57)
[2024-09-17] MEDS: MAGNESIUM SULFATE IN WATER 2 GM/50 ML PREMIX IV (10:13)
[2024-09-17 10:53] LABS: Amphetamine Screen Urine NEGATIVE (NEGATIVE); Barbiturates Screen Urine NEGATIVE (NEGATIVE); Benzodiazepines Screen Urine NEGATIVE (NEGATIVE); Buprenorphine Screen Urine NEGATIVE (NEGATIVE); Cannabinoid Screen Urine NEGATIVE (NEGATIVE); Cocaine Screen Urine NEGATIVE (NEGATIVE); Methadone Screen Urine NEGATIVE (NEGATIVE); Methamphetamines Screen Urine NEGATIVE (NEGATIVE); Opiate Screen Urine NEGATIVE (NEGATIVE); Oxycodone Screen Urine NEGATIVE (NEGATIVE); Phencyclidine Screen Urine NEGATIVE (NEGATIVE); Tricyclic Antidepressant Urine NEGATIVE (NEGATIVE)
--- NOTE | 2024-09-17 11:12 | P.IMPN_ITS ---
Progress Note: A&P Assessment and Plan (1) Anemia requiring transfusions: (2) Heat exhaustion: Qualifiers: Encounter type: initial encounter Qualified Code(s): T67.5XXA - Heat exhaustion, unspecified, initial encounter (3) Symptomatic anemia: (4) Near syncope: (5) Thrombocytosis: Plan Symptomatic microcytic anemia, likely iron deficiency Component of folic acid deficiency due to malnutrition Essential Thrombocytosis Ruling out Myeloproliferative disorder - Patient admitted under hospitalist service for further workup and - She had a suboptimal correction of her hemoglobin after blood transfusion for 2 units, I will give her another unit today -Ordered CT chest, Abdomen, pelvis, report reviewed: Consulted and Spoke to Dr. Chance, recommended obtaining EPO level, reticulocyte count, protein active pheresis, immunoglobulins, as well as LDH. He thinks that the patient may need the a bone marrow biopsy as well as the NGS sequencing that he will help expedite the workup for. Agrees with transfusion and recommended to start Venofer IV 20 mg for 2 doses while in the hospital. She will see the patient later today. - I discussed exam with the patient. She is in agreement. Will continue to monitor closely. 09/17/2024 labs were ordered as per hematology given this, she is getting her second dose of iron today. I ordered chest x-ray as well as started on DuoNebs for possible COPD exacerbation she is mild. Ordered respiratory panel. Patient will get another CBC in the morning tomorrow if stable she can be discharged she will need to follow-up with her hematology guarding the bone marrow biopsy given the CT scan findings showing lymphadenopathy. Discussed the plan with the findings with her in details. Answered all her questions Internal Medicine - PN: Subj Subjective Interval history: Patient seen and examined at bedside. She is coughing productive sputum today. No fever no chills. She is states that she is not feeling well. Does have epistaxis intermittently since yesterday. Reviewed her labs and hemoglobin appears to be stable. Still having thrombocytosis. Appreciate hematology recommendations Exam Narrative Exam Narrative: General: She appears ill today, no acute distress tired appearing and ill sitting up in bed, not in distress but pale and ill-appearing Skin: Warm, dry, significant pallor noted. There is no rash noted. No petechiae, purpura. Head: Normocephalic, atraumatic Eye: Very pale conjunctiva, no drainage, EOMI. PERRL, no scleral icterus Ears, Nose, Mouth, and Throat: oral mucosa is dry Nares patent. Mouth without vesicles. Cardiovascular: Regular Rate and Rhythm, no murmur, gallop, rub Respiratory: Patient is in no distress, no accessory muscle use, lungs are clear to auscultation, no wheezing, rales or rhonchi Back: non-tender, no CVA tenderness bilaterally to percussion. No CT LS midline pain GI: no tenderness to palpation, no masses appreciated. No rebound, guarding, or rigidity noted. No distention. No organomegaly Musculoskeletal: Patient has full range of motion of all of the extremities, no motor, sensory, or focal neurological deficits Neurological: A&O x4, normal speech Constitutional Vital Signs, click to edit/add: Last Vital Signs Temp 99.1 F 09/17/24 07:54 Pulse 130 H 09/17/24 09:58 Resp 16 09/17/24 07:54 BP 169/83 H 09/17/24 07:54 Pulse Ox 95 09/17/24 07:54 O2 Del Method Room Air 09/17/24 07:54 Internal Medicine - PN: Obj Da Labs Labs: Laboratory Results - last 24 hr 09/15/24 09/15/24 09/16/24 17:48 20:25 06:13 WBC RBC Hgb Hct MCV MCH MCHC RDW Plt Count MPV Neut % (Auto) Lymph % (Auto) [place] % (Auto) Eos % (Auto) Baso % (Auto) Neut # (Auto) Lymph # (Auto) [place] # (Auto) Eos # (Auto) Baso # (Auto) Abs Immat Gran (auto) Imm/Tot Granulo (auto) Retic Count (auto) 1.16 Sodium Potassium Chloride Carbon Dioxide Anion Gap BUN Creatinine Est GFR ( Amer) Est GFR (Non-Af Amer) BUN/Creatinine Ratio Glucose Calcium Magnesium Total Bilirubin AST ALT Alkaline Phosphatase Lactate Dehydrogenase 115 Total Protein Albumin Globulin Albumin/Globulin Ratio Vitamin B12 556 Urine Opiates Screen Ur Buprenorphine Scrn Ur Oxycodone Screen Urine Methadone Screen Ur Barbiturates Screen U Tricyclic Antidepress Ur Phencyclidine Scrn Ur Amphetamines Screen U Methamphetamines Scrn U Benzodiazepines Scrn Urine Cocaine Screen U Cannabinoids Screen Influenza Type A Ag Influenza Type B Ag RSV Antigen SARS-CoV-2 Ag (CV2AG) Crossmatch See Detail 09/16/24 09/17/24 09/17/24 14:38 05:28 09:45 WBC 15.9 H 16.2 H RBC 2.99 L 3.19 L Hgb 7.4 L 7.8 L Hct 22.8 L* 24.3 L MCV 76.3 L 76.2 L MCH 24.7 L 24.5 L MCHC 32.5 32.1 RDW 18.8 H 19.6 H Plt Count 850 H 964 H MPV 8.1 L 8.3 L Neut % (Auto) 61.1 62.0 Lymph % (Auto) 24.7 24.7 [place] % (Auto) 12.6 H 11.5 Eos % (Auto) 0.6 L 0.6 L Baso % (Auto) 0.1 L 0.2 Neut # (Auto) 9.7 H 10.1 H Lymph # (Auto) 3.9 H 4.0 H [place] # (Auto) 2.0 H 1.9 H Eos # (Auto) 0.1 0.1 Baso # (Auto) 0.0 0.0 Abs Immat Gran (auto) 0.14 H 0.16 H Imm/Tot Granulo (auto) 0.9 H 1.0 H Retic Count (auto) Sodium 140 Potassium 3.9 Chloride 103 Carbon Dioxide 27.9 Anion Gap 13.0 BUN 6.0 L Creatinine 0.38 L Est GFR ( Amer) >60 Est GFR (Non-Af Amer) >60 BUN/Creatinine Ratio 15.8 Glucose 98 Calcium 8.6 Magnesium 1.6 L Total Bilirubin 0.3 AST 13 L ALT 10 L Alkaline Phosphatase 211 H Lactate Dehydrogenase Total Protein 6.6 Albumin 1.6 L Globulin 5.0 Albumin/Globulin Ratio 0.3 Vitamin B12 Urine Opiates Screen Ur Buprenorphine Scrn Ur Oxycodone Screen Urine Methadone Screen Ur Barbiturates Screen U Tricyclic Antidepress Ur Phencyclidine Scrn Ur Amphetamines Screen U Methamphetamines Scrn U Benzodiazepines Scrn Urine Cocaine Screen U Cannabinoids Screen Influenza Type A Ag Negative Influenza Type B Ag Negative RSV Antigen Not detected SARS-CoV-2 Ag (CV2AG) Negative Crossmatch 09/17/24 10:25 WBC RBC Hgb Hct MCV MCH MCHC RDW Plt Count MPV Neut % (Auto) Lymph % (Auto) [place] % (Auto) Eos % (Auto) Baso % (Auto) Neut # (Auto) Lymph # (Auto) [place] # (Auto) Eos # (Auto) Baso # (Auto) Abs Immat Gran (auto) Imm/Tot Granulo (auto) Retic Count (auto) Sodium Potassium Chloride Carbon Dioxide Anion Gap BUN Creatinine Est GFR ( Amer) Est GFR (Non-Af Amer) BUN/Creatinine Ratio Glucose Calcium Magnesium Total Bilirubin AST ALT Alkaline Phosphatase Lactate Dehydrogenase Total Protein Albumin Globulin Albumin/Globulin Ratio Vitamin B12 Urine Opiates Screen Negative Ur Buprenorphine Scrn Negative Ur Oxycodone Screen Negative Urine Methadone Screen Negative Ur Barbiturates Screen Negative U Tricyclic Antidepress Negative Ur Phencyclidine Scrn Negative Ur Amphetamines Screen Negative U Methamphetamines Scrn Negative U Benzodiazepines Scrn Negative Urine Cocaine Screen Negative U Cannabinoids Screen Negative Influenza Type A Ag Influenza Type B Ag RSV Antigen SARS-CoV-2 Ag (CV2AG) Crossmatch
--- NOTE | 2024-09-17 11:20 | XR_ITS ---
The [address] [address] Patient Name: JAIME BURTON MRN: [id number] date: 1975 Sex: F Assigned Patient Location: Current Patient Location: Accession/Order Number: [id number] Exam Date: 09/17/2024 11:56 Report Date: 09/17/2024 12:00 At the request of: EMILY WALLACE MD Procedure: XR chest 2V PA AND LATERAL CHEST: CLINICAL HISTORY: Cough and wheezing. History of tobacco use. COMPARISON: CT 09/16/2024 and chest x-ray 12/29/2023 A 13 mm nodular asymmetry is again seen at the left upper lobe anteriorly. This is similar to the prior. There is no developing consolidation, effusion or pneumothorax. The cardiac, hilar and mediastinal silhouettes are stable. There is no vascular congestion. The visualized bony thorax is intact. Subtle levoscoliotic curvature is noted. XR/XR chest 2V IMPRESSION: SIMILAR LEFT UPPER LOBE PULMONARY NODULE. NO OTHER ACUTE FINDINGS. Impression dictated by: Iraida Bach M.D. 09/17/2024 12:00 PM Dictation Location: [place] [address] Electronically authenticated by: [id number] Y Date: 09/17/2024 12:00
[2024-09-17] MEDS: IPRATROPIUM/ALBUTEROL SULFATE 3 ML AMPUL.NEB IH ×2 (11:24→19:04)
[2024-09-17] MEDS: IRON SUCROSE COMPLEX 200 MG in 0.9 % SODIUM CHLORIDE 100 ML 220 MG IV (11:24)
--- NOTE | 2024-09-17 11:47 | CM.NOTE ---
Rounds made with Dr. Ku. Dr. Ku reviews findings and answers all questions. Will add Tylenol for pain, Robitussin for cough and Inhaler. Ms. Merrill verbalizes understanding. No discharge today.
[2024-09-17 15:09] LABS: Erythropoietin (EPO), Serum 125.6 mIU/mL (2.6-18.5); Hgb A 97.5 % (96.4-98.8); Hgb A2 2.5 % (1.8-3.2)
[2024-09-17 17:08] LABS: Albumin 1.8 g/dL (2.9-4.4); Alpha-1-Globulin 0.6 g/dL (0.0-0.4); Alpha-2-Globulin 1.3 g/dL (0.4-1.0); Gamma Globulin 0.7 g/dL (0.4-1.8); Protein, Total 5.3 g/dL (6.0-8.5)
[2024-09-17] MEDS: GABAPENTIN 400 MG CAPSULE PO (17:41)
[2024-09-17] MEDS: ATORVASTATIN CALCIUM 20 MG TABLET PO (21:10)
[2024-09-17] MEDS: LIDOCAINE 5% PATCH 1 PATCH TOPICAL (21:10)
[2024-09-18] VITALS (24 sets, daily range): BP systolic 116–168; BP diastolic 77–96; PULSE 108–133; TEMP 36.6–38.9; O2SAT 91–96
[2024-09-18] MEDS: ACETAMINOPHEN 325 MG TABLET 650 MG PO ×4 (04:36→23:10)
[2024-09-18 05:37] LABS: Basophils Absolute Auto 0.1 10^3/uL (0.0-0.1); Basophils Percent Auto 0.4 % (0.2-2.0); Eosinophils Percent Auto 0.2 % (0.9-7.0); Hematocrit 26.1 % (36.0-48.0); Hemoglobin 8.4 g/dL (12.0-16.0); Immature Granulocytes Abs Auto 0.12 10^3/uL (0.00-0.03); Immature Granulocytes Pct Auto 0.7 % (0.0-0.5); Lymphocytes Absolute Auto 3.6 10^3/uL (1.2-3.8); Lymphocytes Percent Auto 21.9 % (20.5-60.0); Mean Corpuscular HGB Conc 32.2 g/dL (29.9-35.2); Mean Corpuscular Hemoglobin 24.7 pg (26.7-34.0); Mean Corpuscular Volume 76.8 fL (81.0-99.0); Mean Platelet Volume 8.4 fL (9.5-13.5); Monocytes Absolute Auto 2.1 10^3/uL (0.3-0.8); Monocytes Percent Auto 12.7 % (1.7-12.0); Neutrophils Absolute Auto 10.6 10^3/uL (1.4-6.5); Neutrophils Percent Auto 64.1 % (43.0-75.0); Platelet Count 961 10^3/uL (150-450); Red Cell Distribution Width 21.4 % (11.0-15.0); White Blood Count 16.5 10^3/uL (4.0-11.0)
[2024-09-18 05:53] LABS: Alanine Aminotransferase 7 U/L (14-59); Albumin Globulin Ratio 0.3; Albumin Level 1.6 g/dL (3.4-5.0); Alkaline Phosphatase 237 U/L (46-116); Anion Gap 15.5; Aspartate Amino Transferase 16 U/L (15-37); BUN Creatinine Ratio 18.6; Bilirubin Total 0.4 mg/dL (0.2-1.0); Calcium 8.7 mg/dL (8.5-10.1); Carbon Dioxide 27.6 mmol/L (21.0-32.0); Chloride 100 mmol/L (98-107); Estimated GFR (African America >60 (>=60 mL/min/1.73m^2); Estimated GFR (Non-African Ame >60 (>=60 mL/min/1.73m^2); Globulin 5.5 g/dL; Glucose 101 mg/dL (74-106); Magnesium 2.2 mg/dL (1.8-2.4); Potassium 4.1 mmol/L (3.5-5.1); Sodium 139 mmol/L (136-145); Total Protein 7.1 g/dL (6.4-8.2)
--- NOTE | 2024-09-18 06:17 | PM.DS1 ---
DS: Providers Provider Date of admission: 09/15/24 21:00 Primary care physician: Domi Altamirano NP Consults: 09/16/24 Consult to Oncology Routine Consulting Provider: Li Ku Reason for consultation: low hemoglobin/hematology consult Consult to Oncology Routine Consulting Provider: Katerine Chance Reason for consultation: Hematology Has provider been notified: Yes 09/16/24 08:56 Consult to Dietitian Routine Reason for consultation: Food behaviour, dietary plan for anemia 09/16/24 09:00 Occupational Therapy Eval and Treat Routine Reason for consultation: Pre-syncope Has provider been notified: No Physical Therapy Eval and Treat Routine Reason for consultation: Pre-syncope Has provider been notified: No DS: Diagnosis Discharge Diagnosis (1) Anemia requiring transfusions: (2) Heat exhaustion: Qualifiers: Encounter type: initial encounter Qualified Code(s): T67.5XXA - Heat exhaustion, unspecified, initial encounter (3) Symptomatic anemia: (4) Near syncope: (5) Thrombocytosis: Plan (1) Anemia requiring transfusions: (2) Heat exhaustion: Qualifiers: Encounter type: initial encounter Qualified Code(s): T67.5XXA - Heat exhaustion, unspecified, initial encounter (3) Symptomatic anemia: (4) Near syncope: (5) Thrombocytosis: DS: Summary Time Spent with Patient Time attestation: Total time spent providing and/or coordinating discharge services: Exam Constitutional Vital Signs, click to edit/add: Last Vital Signs Temp 99.9 F 09/18/24 04:36 Pulse 110 H 09/18/24 05:56 Resp 18 09/18/24 04:00 BP 134/90 09/18/24 04:00 Pulse Ox 91 L 09/18/24 04:00 O2 Del Method Room Air 09/18/24 04:00 DS: Data Data Completed and Pending Labs on day of discharge: Labs from last 24 hours 09/18/24 09/17/24 09/17/24 05:13 10:25 09:45 WBC 16.5 H RBC 3.40 L Hgb 8.4 L Hct 26.1 L MCV 76.8 L MCH 24.7 L MCHC 32.2 RDW 21.4 H Plt Count 961 H MPV 8.4 L Neut % (Auto) 64.1 Lymph % (Auto) 21.9 [place] % (Auto) 12.7 H Eos % (Auto) 0.2 L Baso % (Auto) 0.4 Neut # (Auto) 10.6 H Lymph # (Auto) 3.6 [place] # (Auto) 2.1 H Eos # (Auto) 0.0 Baso # (Auto) 0.1 Abs Immat Gran (auto) 0.12 H Imm/Tot Granulo (auto) 0.7 H Hemoglobin A Hemoglobin A2 Hemoglobin F Hemoglobin S Hgb ELP Interp Sodium 139 Potassium 4.1 Chloride 100 Carbon Dioxide 27.6 Anion Gap 15.5 BUN 8.0 Creatinine 0.43 L Est GFR ( Amer) >60 Est GFR (Non-Af Amer) >60 BUN/Creatinine Ratio 18.6 Glucose 101 Calcium 8.7 Magnesium 2.2 Erythropoietin Total Bilirubin 0.4 AST 16 ALT 7 L Alkaline Phosphatase 237 H Total Protein 7.1 Total Protein (PEP) Albumin 1.6 L Albumin (PEP) Globulin 5.5 Globulin (PEP) Albumin/Globulin Ratio 0.3 Albumin/Globulin (PEP) Iayxm-2-Mqklxbyvw Nqjlr-0-Klsxfamxf Beta Globulins Gamma Globulins M-Jun PEP Note Urine Opiates Screen Negative Ur Buprenorphine Scrn Negative Ur Oxycodone Screen Negative Urine Methadone Screen Negative Ur Barbiturates Screen Negative U Tricyclic Antidepress Negative Ur Phencyclidine Scrn Negative Ur Amphetamines Screen Negative U Methamphetamines Scrn Negative U Benzodiazepines Scrn Negative Urine Cocaine Screen Negative U Cannabinoids Screen Negative Influenza Type A Ag Negative Influenza Type B Ag Negative RSV Antigen Not detected SARS-CoV-2 Ag (CV2AG) Negative 09/17/24 09/16/24 05:28 14:38 WBC RBC Hgb Hct MCV MCH MCHC RDW Plt Count MPV Neut % (Auto) Lymph % (Auto) [place] % (Auto) Eos % (Auto) Baso % (Auto) Neut # (Auto) Lymph # (Auto) [place] # (Auto) Eos # (Auto) Baso # (Auto) Abs Immat Gran (auto) Imm/Tot Granulo (auto) Hemoglobin A 97.5 Hemoglobin A2 2.5 Hemoglobin F 0.0 Hemoglobin S 0.0 Hgb ELP Interp Comment Sodium 140 Potassium 3.9 Chloride 103 Carbon Dioxide 27.9 Anion Gap 13.0 BUN 6.0 L Creatinine 0.38 L Est GFR ( Amer) >60 Est GFR (Non-Af Amer) >60 BUN/Creatinine Ratio 15.8 Glucose 98 Calcium 8.6 Magnesium 1.6 L Erythropoietin 125.6 H Total Bilirubin 0.3 AST 13 L ALT 10 L Alkaline Phosphatase 211 H Total Protein 6.6 Total Protein (PEP) 5.3 L Albumin 1.6 L Albumin (PEP) 1.8 L Globulin 5.0 Globulin (PEP) 3.5 Albumin/Globulin Ratio 0.3 Albumin/Globulin (PEP) 0.5 L Nytnz-0-Uaqoipzjj 0.6 H Uhsmv-4-Qmxnwszrh 1.3 H Beta Globulins 0.9 Gamma Globulins 0.7 M-Jun Not observed PEP Note Comment Urine Opiates Screen Ur Buprenorphine Scrn Ur Oxycodone Screen Urine Methadone Screen Ur Barbiturates Screen U Tricyclic Antidepress Ur Phencyclidine Scrn Ur Amphetamines Screen U Methamphetamines Scrn U Benzodiazepines Scrn Urine Cocaine Screen U Cannabinoids Screen Influenza Type A Ag Influenza Type B Ag RSV Antigen SARS-CoV-2 Ag (CV2AG) Discharge Plan Discharge Condition: Serious Discharge Medications: No Action gabapentin 400 mg capsule 400 mg PO Q8H PRN (Reason: back pain) omeprazole 40 mg capsule,delayed release(DR/EC) 40 mg PO BID atorvastatin 20 mg tablet 20 mg PO .QHS albuterol sulfate 90 mcg/actuation HFA aerosol inhaler 2 puff INHALATION Q6H PRN (Reason: shortness of breath or wheezing) losartan 50 mg tablet 50 mg PO DAILY cetirizine 10 mg tablet 10 mg PO DAILY fluticasone propionate 50 mcg/actuation spray,suspension 2 spray INTRANASAL BID metoprolol tartrate 50 mg tablet 50 mg PO BID Print Language: St Helen[place]
[2024-09-18] MEDS: IPRATROPIUM/ALBUTEROL SULFATE 3 ML AMPUL.NEB IH ×5 (07:52→23:05)
[2024-09-18] MEDS: CETIRIZINE HCL 10 MG TABLET PO (08:03)
[2024-09-18] MEDS: GABAPENTIN 400 MG CAPSULE PO ×2 (08:03→17:48)
[2024-09-18] MEDS: LOSARTAN POTASSIUM 50 MG TABLET PO (08:03)
[2024-09-18] MEDS: FOLIC ACID 1 MG TABLET PO (08:03)
[2024-09-18] MEDS: METOPROLOL TARTRATE 50 MG TABLET PO ×2 (08:03→21:15)
[2024-09-18] MEDS: FLUTICASONE PROPIONATE 50 MCG NASAL SPRAY 2 SPRAY NS (08:04)
[2024-09-18] MEDS: PANTOPRAZOLE SODIUM 40 MG VIAL IV (08:11)
--- NOTE | 2024-09-18 08:26 | P.PN_ITS ---
Progress Note: Subjective Subjective Interval history: Patient sleepy but arousable, just waking up, still feels very fatigued, cough persisting although dry Exam Constitutional Vital Signs, click to edit/add: Last Vital Signs Temp 98.0 F 09/18/24 07:54 Pulse 112 H 09/18/24 08:00 Resp 18 09/18/24 08:00 BP 143/96 H 09/18/24 07:54 Pulse Ox 96 09/18/24 07:54 O2 Del Method Room Air 09/18/24 07:54 Documenting provider has reviewed patient's vital signs: yes Common normals: no apparent distress Chest Common normals: inspection of chest normal Respiratory Common normals: normal respiratory effort and no retractions; not clear to ascultation bilaterally Auscultation: rhonchi (Faint with cough) and wheezes (Faint with cough) Cardio Common normals: regular rate and regular rhythm GI Common normals: Normal to inspection, nondistended, normoactive bowel sounds present, soft to palpation and no hepatosplenomegaly Neuro Common normals: CN's II-XII intact bilaterally, moves all extremities and no focal motor deficits Progress Note: Objective Labs Labs: Short CBC 09/18/24 Range/Units 05:13 WBC 16.5 H (4.0-11.0) 10^3/uL Hgb 8.4 L (12.0-16.0) g/dL Hct 26.1 L (36.0-48.0) % Plt Count 961 H (150-450) 10^3/uL BMP 09/18/24 05:13 Sodium 139 Potassium 4.1 Chloride 100 Carbon Dioxide 27.6 BUN 8.0 Creatinine 0.43 L Glucose 101 Calcium 8.7 Liver Function 09/18/24 Range/Units 05:13 Total Bilirubin 0.4 (0.2-1.0) mg/dL AST 16 (15-37) U/L ALT 7 L (14-59) U/L Alkaline Phosphatase 237 H (46-116) U/L Albumin 1.6 L (3.4-5.0) g/dL Progress Note: A&P Assessment and Plan (1) Anemia requiring transfusions: (2) Heat exhaustion: Qualifiers: Encounter type: initial encounter Qualified Code(s): T67.5XXA - Heat exhaustion, unspecified, initial encounter (3) Symptomatic anemia: (4) Near syncope: (5) Thrombocytosis: Plan Admission findings: Sinus tachycardia, anemia, leukocytosis, thrombocythemia, hypokalemia Anemia requiring transfusions: Hemoglobin slightly improved Heat exhaustion with acute elevation in creatinine: Improving Hyperglycemia-improving Elevated liver function test-up slightly, repeat tomorrow Hypomagnesemia-supplement Folate deficiency-supplement Thrombocytosis:-Down slightly today, will follow-up with workup as an outpatient Remote history of alcohol abuse Severe protein calorie malnutrition-diet supplement Acute exacerbation of COPD-cough increasing, low-grade fevers now 99.9-white blood cell count higher, start IV antibiotics and continue with aerosol treatments, try to obtain sputum culture Hypokalemia-improved Admission status: Patient feeling on initial observational time., Will maintain patient as inpatient status is medically necessary treatment will span 2 midnights, condition deteriorated with white blood cell count higher now with low-grade fever, increasing cough with acute exacerbation of COPD
--- NOTE | 2024-09-18 08:29 | CM.NOTE ---
Rounds made with Dr. Swenson, pt c/o feeling fatigued. HR elevated and pt had low grade fever last night. No discharge today.
[2024-09-18 08:51] LABS: Thyroid Stimulating Hormone 0.751 uIU/mL (0.358-3.740)
[2024-09-18] MEDS: 0.9 % SODIUM CHLORIDE 250 ML 10 ML IV (09:43)
[2024-09-18] MEDS: AZITHROMYCIN 500 MG in 0.9 % SODIUM CHLORIDE 250 ML 250 MG IV (09:43)
[2024-09-18] MEDS: BENZONATATE 100 MG CAPSULE 200 MG PO ×3 (09:43→21:15)
[2024-09-18] MEDS: PROSTAT 15 GM PROTEIN/100 CAL 30 ML LIQUID PACKET PO ×2 (10:48→21:14)
[2024-09-18] MEDS: CEFTRIAXONE 1,000 MG in 0.9 % SODIUM CHLORIDE 50 ML 100 MG IV (10:48)
[2024-09-18] MEDS: ENSURE HP 237 ML LIQUID PO ×2 (10:49→21:14)
[2024-09-18] MEDS: GUAIFENESIN 200 MG/DEXTROMETHORPHAN 20 MG 10 ML UNIT DOSE CUP PO ×3 (12:06→21:14)
[2024-09-18] MEDS: 0.9 % SODIUM CHLORIDE 1,000 ML 1000 ML IV (13:41)
[2024-09-18 13:56] LABS: Alanine Aminotransferase 8 U/L (14-59); Albumin Globulin Ratio 0.3; Albumin Level 1.6 g/dL (3.4-5.0); Alkaline Phosphatase 229 U/L (46-116); Anion Gap 13.8; Aspartate Amino Transferase 14 U/L (15-37); BUN Creatinine Ratio 19.3; Bilirubin Total 0.3 mg/dL (0.2-1.0); Calcium 8.7 mg/dL (8.5-10.1); Carbon Dioxide 26.8 mmol/L (21.0-32.0); Chloride 101 mmol/L (98-107); Estimated GFR (African America >60 (>=60 mL/min/1.73m^2); Estimated GFR (Non-African Ame >60 (>=60 mL/min/1.73m^2); Globulin 5.3 g/dL; Glucose 136 mg/dL (74-106); Potassium 3.6 mmol/L (3.5-5.1); Sodium 138 mmol/L (136-145); Total Protein 6.9 g/dL (6.4-8.2)
[2024-09-18 13:58] LABS: Lactate/Lactic Acid 1.2 mmol/L (0.4-2.0)
[2024-09-18] MEDS: NICOTINE 21 MG PATCH.TD24 TD (16:12)
[2024-09-18 20:08] LABS: Immunoglobulin A, Qn, Serum 320 mg/dL (87-352); Immunoglobulin E, Total 234 IU/mL (6-495); Immunoglobulin G, Qn, Serum 819 mg/dL (586-1602); Immunoglobulin M, Qn, Serum 112 mg/dL (26-217)
[2024-09-18] MEDS: ATORVASTATIN CALCIUM 20 MG TABLET PO (21:15)
[2024-09-18] MEDS: LIDOCAINE 5% PATCH 1 PATCH TOPICAL (21:18)
[2024-09-18] MEDS: HYOSCYAMINE SULFATE 0.125 MG TAB.SUBL SL (23:10)
[2024-09-19] VITALS (20 sets, daily range): BP systolic 121–147; BP diastolic 78–88; PULSE 75–120; TEMP 35.8–37.3; O2SAT 90–98; BMI 19.1
[2024-09-19 05:14] LABS: Hematocrit 24.8 % (36.0-48.0); Hemoglobin 7.6 g/dL (12.0-16.0); Mean Corpuscular HGB Conc 30.6 g/dL (29.9-35.2); Mean Corpuscular Hemoglobin 24.2 pg (26.7-34.0); Mean Platelet Volume 8.2 fL (9.5-13.5); Platelet Count 891 10^3/uL (150-450); Red Blood Count 3.14 10^6/uL (4.20-5.40); Red Cell Distribution Width 22.6 % (11.0-15.0); White Blood Count 17.4 10^3/uL (4.0-11.0)
[2024-09-19] MEDS: GABAPENTIN 400 MG CAPSULE PO (05:14)
[2024-09-19] MEDS: BENZONATATE 100 MG CAPSULE 200 MG PO ×3 (05:14→21:44)
[2024-09-19] MEDS: ACETAMINOPHEN 325 MG TABLET 650 MG PO ×2 (05:14→21:44)
[2024-09-19] MEDS: GUAIFENESIN 200 MG/DEXTROMETHORPHAN 20 MG 10 ML UNIT DOSE CUP PO ×3 (05:14→21:44)
[2024-09-19 05:32] LABS: Alanine Aminotransferase 8 U/L (14-59); Albumin Globulin Ratio 0.3; Albumin Level 1.7 g/dL (3.4-5.0); Alkaline Phosphatase 255 U/L (46-116); Anion Gap 12.6; Anisocytosis 1+; Aspartate Amino Transferase 14 U/L (15-37); Bilirubin Total 0.4 mg/dL (0.2-1.0); Carbon Dioxide 28.2 mmol/L (21.0-32.0); Chloride 101 mmol/L (98-107); Estimated GFR (African America >60 (>=60 mL/min/1.73m^2); Estimated GFR (Non-African Ame >60 (>=60 mL/min/1.73m^2); Globulin 5.4 g/dL; Glucose 107 mg/dL (74-106); Hypochromasia 1+; Lymphocytes Absolute Manual 3.65 10^3/uL (1.20-3.80); Monocytes Absolute Manual 1.21 10^3/uL (0.30-0.80); Potassium 3.8 mmol/L (3.5-5.1); Segmented Neut Absolute Manual 12.52 10^3/uL (1.4-6.5); Sodium 138 mmol/L (136-145); Total Protein 7.1 g/dL (6.4-8.2)
[2024-09-19] MEDS: DEXAMETHASONE SOD PHOS 10 MG/ML VIAL IV (06:38)
[2024-09-19] MEDS: 0.9 % SODIUM CHLORIDE 1,000 ML 1000 ML IV (06:38)
--- NOTE | 2024-09-19 06:55 | P.PN_ITS ---
Progress Note: Subjective Subjective Interval history: Still with difficult cough this morning, but does look better, yesterday shortly after having rounds completed she spiked a temperature of 102 Exam Constitutional Vital Signs, click to edit/add: Last Vital Signs Temp 99.1 F 09/19/24 04:00 Pulse 120 H 09/19/24 05:48 Resp 18 09/19/24 04:00 BP 122/82 09/19/24 04:00 Pulse Ox 97 09/19/24 04:00 O2 Del Method Room Air 09/19/24 04:00 Documenting provider has reviewed patient's vital signs: yes Common normals: no apparent distress Chest Common normals: inspection of chest normal Respiratory Common normals: normal respiratory effort and no retractions; not clear to ascultation bilaterally Auscultation: rhonchi (Seems improved from previous day) and wheezes (Faint with cough) Cardio Common normals: regular rate, regular rhythm, no gallops and no murmurs GI Common normals: Normal to inspection, nondistended, normoactive bowel sounds present, soft to palpation and no hepatosplenomegaly Neuro Common normals: CN's II-XII intact bilaterally, moves all extremities and no focal motor deficits Progress Note: Objective Labs Labs: Short CBC 09/19/24 Range/Units 04:44 WBC 17.4 H (4.0-11.0) 10^3/uL Hgb 7.6 L (12.0-16.0) g/dL Hct 24.8 L (36.0-48.0) % Plt Count 891 H (150-450) 10^3/uL BMP 09/18/24 09/19/24 13:22 04:44 Sodium 138 138 Potassium 3.6 3.8 Chloride 101 101 Carbon Dioxide 26.8 28.2 BUN 11.0 9.0 Creatinine 0.57 0.60 Glucose 136 H 107 H Calcium 8.7 9.0 Liver Function 09/18/24 09/19/24 Range/Units 13:22 04:44 Total Bilirubin 0.3 0.4 (0.2-1.0) mg/dL AST 14 L 14 L (15-37) U/L ALT 8 L 8 L (14-59) U/L Alkaline Phosphatase 229 H 255 H (46-116) U/L Albumin 1.6 L 1.7 L (3.4-5.0) g/dL Progress Note: A&P Assessment and Plan (1) Anemia requiring transfusions: (2) Heat exhaustion: Qualifiers: Encounter type: initial encounter Qualified Code(s): T67.5XXA - Heat exhaustion, unspecified, initial encounter (3) Symptomatic anemia: (4) Near syncope: (5) Thrombocytosis: Plan Admission findings: Sinus tachycardia, anemia, leukocytosis, thrombocythemia, hypokalemia Anemia requiring transfusions: Down slightly today Heat exhaustion with acute elevation in creatinine: Improving Hyperglycemia-improving Elevated liver function test-alk phos up slightly today Hypomagnesemia-pending Folate deficiency-supplement Thrombocytosis: Down slightly today, better than previous today for sure Remote history of alcohol abuse Severe protein calorie malnutrition-diet supplement Acute exacerbation of COPD with acute bronchitis complicated by immune deficiency secondary to the blood disorder as outlined above-antibiotics were started yesterday, blood cultures obtained, fever spike to 102 yesterday, maintain antibiotics but will change azithromycin to Levaquin, also check mycoplasma, Legionella and pertussis titers Hypokalemia-improved Admission status: Patient feeling on initial observational time., Will maintain patient as inpatient status is medically necessary treatment will span 2 midnights, due to acute exacerbation of COPD secondary to acute bronchitis
--- NOTE | 2024-09-19 07:39 | CM.NOTE ---
Rounds made with Dr. Swenson, will repeat chest x-ray today. No discharge pt continues with fever and elevated WBC.
--- NOTE | 2024-09-19 07:55 | XR_ITS ---
[place] [id number] Patient Name: JAIME BURTON MRN: [id number] date: 1975 Sex: F Assigned Patient Location: [place] Current Patient Location: Accession/Order Number: [id number] Exam Date: 09/19/2024 09:16 Report Date: 09/19/2024 09:17 At the request of: MEENAKSHI MCCLAIN MD Procedure: XR chest 2V PA AND LATERAL CHEST: CLINICAL HISTORY: follow up bronchitis COMPARISON: 09/17/2024 A left lung nodule is again visualized. There is no developing consolidation, effusion or pneumothorax. The cardiac, hilar and mediastinal silhouettes are within normal limits. There is no vascular congestion. The visualized bony thorax is intact. Subtle levoscoliotic curvature is noted. XR/XR chest 2V IMPRESSION: STABLE LEFT LUNG NODULE. NO ACUTE FINDINGS. Impression dictated by: Iraida Bach M.D. 09/19/2024 9:17 AM Dictation Location: [place] [address] Electronically authenticated by: [id number] Y Date: 09/19/2024 09:17
[2024-09-19] MEDS: IPRATROPIUM/ALBUTEROL SULFATE 3 ML AMPUL.NEB IH ×4 (08:04→19:32)
[2024-09-19] MEDS: ENSURE HP 237 ML LIQUID PO (09:19)
[2024-09-19] MEDS: 0.9 % SODIUM CHLORIDE 250 ML 10 ML IV (09:20)
[2024-09-19] MEDS: KETOROLAC TROMETHAMINE 30 MG/ML VIAL IVP ×3 (09:20→21:44)
[2024-09-19] MEDS: LEVOFLOXACIN IN DEXTROSE 5 % 750 MG/150 ML PREMIX 100 MG IV (09:20)
[2024-09-19] MEDS: PROSTAT 15 GM PROTEIN/100 CAL 30 ML LIQUID PACKET PO (09:20)
[2024-09-19] MEDS: LOSARTAN POTASSIUM 50 MG TABLET PO (09:21)
[2024-09-19] MEDS: CETIRIZINE HCL 10 MG TABLET PO (09:21)
[2024-09-19] MEDS: FOLIC ACID 1 MG TABLET PO (09:21)
[2024-09-19] MEDS: METOPROLOL TARTRATE 50 MG TABLET PO ×2 (09:21→21:44)
[2024-09-19] MEDS: FLUTICASONE PROPIONATE 50 MCG NASAL SPRAY 2 SPRAY NS ×2 (09:21→21:43)
[2024-09-19] MEDS: PANTOPRAZOLE SODIUM 40 MG VIAL IV (09:32)
[2024-09-19] MEDS: CEFTRIAXONE 1,000 MG in 0.9 % SODIUM CHLORIDE 50 ML 100 MG IV (11:03)
[2024-09-19] MEDS: ATORVASTATIN CALCIUM 20 MG TABLET PO (21:44)
[2024-09-19] MEDS: LIDOCAINE 5% PATCH 1 PATCH TOPICAL (21:45)
[2024-09-20] VITALS (25 sets, daily range): BP systolic 134–166; BP diastolic 80–98; PULSE 10–111; TEMP 36.4–37.1; O2SAT 93–98
[2024-09-20] MEDS: KETOROLAC TROMETHAMINE 30 MG/ML VIAL IVP ×2 (02:23→20:40)
[2024-09-20] MEDS: IPRATROPIUM/ALBUTEROL SULFATE 3 ML AMPUL.NEB IH (03:23)
[2024-09-20] MEDS: BENZONATATE 100 MG CAPSULE 200 MG PO ×3 (05:22→20:39)
[2024-09-20] MEDS: GUAIFENESIN 200 MG/DEXTROMETHORPHAN 20 MG 10 ML UNIT DOSE CUP PO ×4 (05:22→20:39)
[2024-09-20] MEDS: GABAPENTIN 400 MG CAPSULE PO (05:27)
[2024-09-20 06:53] LABS: Mean Corpuscular HGB Conc 30.6 g/dL (29.9-35.2); Mean Corpuscular Hemoglobin 24.9 pg (26.7-34.0); Mean Corpuscular Volume 81.4 fL (81.0-99.0); Mean Platelet Volume 8.5 fL (9.5-13.5); Platelet Count 853 10^3/uL (150-450); Red Blood Count 2.69 10^6/uL (4.20-5.40); Red Cell Distribution Width 22.8 % (11.0-15.0); White Blood Count 21.8 10^3/uL (4.0-11.0)
--- NOTE | 2024-09-20 06:53 | P.PN_ITS ---
Progress Note: Subjective Subjective Interval history: Cough is better today, aches are better today was given Toradol and steroids yesterday Exam Constitutional Vital Signs, click to edit/add: Last Vital Signs Temp 97.7 F 09/20/24 04:00 Pulse 104 H 09/20/24 06:00 Resp 18 09/20/24 04:00 BP 142/80 H 09/20/24 04:00 Pulse Ox 93 L 09/20/24 04:00 O2 Del Method Room Air 09/20/24 04:00 Documenting provider has reviewed patient's vital signs: yes Common normals: no apparent distress Chest Common normals: inspection of chest normal Respiratory Common normals: normal respiratory effort and no retractions; not clear to ascultation bilaterally Auscultation: rhonchi (Seems improved from previous day) and wheezes (Faint with cough) Cardio Common normals: regular rate, regular rhythm, no gallops and no murmurs GI Common normals: Normal to inspection, nondistended, normoactive bowel sounds p resent, soft to palpation and no hepatosplenomegaly Neuro Common normals: CN's II-XII intact bilaterally, moves all extremities and no focal motor deficits Progress Note: A&P Assessment and Plan (1) Anemia requiring transfusions: (2) Heat exhaustion: Qualifiers: Encounter type: initial encounter Qualified Code(s): T67.5XXA - Heat exhaustion, unspecified, initial encounter (3) Symptomatic anemia: (4) Near syncope: (5) Thrombocytosis: Plan Admission findings: Sinus tachycardia, anemia, leukocytosis, thrombocythemia, hypokalemia Anemia requiring transfusions: Down further today, type cross and transfuse 2 units, Tylenol, Benadryl, steroids, Lasix in between Heat exhaustion with acute elevation in creatinine: Improving Hyperglycemia-improving Elevated liver function test-alk phos up slightly today Hypomagnesemia-pending Folate deficiency-supplement Thrombocythemia: Improved today Remote history of alcohol abuse Severe protein calorie malnutrition-diet supplement Acute exacerbation of COPD with acute bronchitis complicated by immune deficiency secondary to the blood disorder as outlined above-maintain current antibiotics, sputum culture pending, labs for atypicals pending Hypokalemia-improved Admission status: Patient feeling on initial observational time., Will maintain patient as inpatient status is medically necessary treatment will span 2 midnights, due to acute exacerbation of COPD secondary to acute bronchitis
[2024-09-20 06:58] LABS: Hematocrit 21.9 % (36.0-48.0); Hemoglobin 6.7 g/dL (12.0-16.0)
[2024-09-20 07:05] LABS: Alanine Aminotransferase 27 U/L (14-59); Albumin Globulin Ratio 0.3; Albumin Level 1.6 g/dL (3.4-5.0); Alkaline Phosphatase 295 U/L (46-116); Aspartate Amino Transferase 37 U/L (15-37); Bilirubin Total 0.2 mg/dL (0.2-1.0); Calcium 9.4 mg/dL (8.5-10.1); Carbon Dioxide 26.9 mmol/L (21.0-32.0); Chloride 103 mmol/L (98-107); Estimated GFR (African America >60 (>=60 mL/min/1.73m^2); Estimated GFR (Non-African Ame >60 (>=60 mL/min/1.73m^2); Globulin 5.4 g/dL; Glucose 240 mg/dL (74-106); Potassium 3.9 mmol/L (3.5-5.1); Sodium 141 mmol/L (136-145)
[2024-09-20 07:22] LABS: Anisocytosis 1+; Band Neutrophils Absolute 0.9 10^3/uL (0.0-0.3); Hypochromasia 1+; Lymphocytes Absolute Manual 2.18 10^3/uL (1.20-3.80); Monocytes Absolute Manual 1.09 10^3/uL (0.30-0.80); Segmented Neut Absolute Manual 17.65 10^3/uL (1.4-6.5)
[2024-09-20] MEDS: PROSTAT 15 GM PROTEIN/100 CAL 30 ML LIQUID PACKET PO (09:32)
[2024-09-20] MEDS: ENSURE HP 237 ML LIQUID PO (09:33)
[2024-09-20] MEDS: LOSARTAN POTASSIUM 50 MG TABLET PO (09:33)
[2024-09-20] MEDS: DIPHENHYDRAMINE HCL 25 MG CAPSULE PO (09:33)
[2024-09-20] MEDS: FUROSEMIDE 40 MG/4 ML VIAL IVP (09:33)
[2024-09-20] MEDS: ACETAMINOPHEN 500 MG TABLET 1000 MG PO (09:33)
[2024-09-20] MEDS: METOPROLOL TARTRATE 50 MG TABLET PO ×2 (09:34→20:40)
[2024-09-20] MEDS: FOLIC ACID 1 MG TABLET PO (09:34)
[2024-09-20] MEDS: CETIRIZINE HCL 10 MG TABLET PO (09:34)
[2024-09-20] MEDS: LEVOFLOXACIN IN DEXTROSE 5 % 750 MG/150 ML PREMIX 100 MG IV (09:43)
[2024-09-20] MEDS: PANTOPRAZOLE SODIUM 40 MG VIAL IV (09:44)
[2024-09-20] MEDS: FLUTICASONE PROPIONATE 50 MCG NASAL SPRAY 2 SPRAY NS ×2 (09:44→20:41)
[2024-09-20] MEDS: DEXAMETHASONE SOD PHOS 10 MG/ML VIAL IV (09:44)
[2024-09-20] MEDS: IPRATROPIUM BROMIDE 0.5 MG/2.5 ML VIAL.NEB IH ×2 (11:06→16:56)
[2024-09-20] MEDS: LEVALBUTEROL HCL 0.63 MG/3 ML VIAL.NEB IH ×2 (11:08→16:56)
[2024-09-20] MEDS: CEFTRIAXONE 1,000 MG in 0.9 % SODIUM CHLORIDE 50 ML 100 MG IV (11:12)
[2024-09-20] MEDS: NICOTINE 21 MG PATCH.TD24 TD (12:35)
[2024-09-20] MEDS: GABAPENTIN 300 MG CAPSULE 600 MG PO (16:26)
[2024-09-20] MEDS: ACETAMINOPHEN 325 MG TABLET 650 MG PO ×2 (16:27→20:39)
[2024-09-20] MEDS: MAGNESIUM HYDROXIDE 2,400 MG/10 ML ORAL.SUSP 2400 MG PO (17:39)
[2024-09-20 18:43] LABS: Basophils Percent Auto 0.1 % (0.2-2.0); Hematocrit 28.4 % (36.0-48.0); Hemoglobin 8.9 g/dL (12.0-16.0); Immature Granulocytes Abs Auto 0.17 10^3/uL (0.00-0.03); Immature Granulocytes Pct Auto 0.7 % (0.0-0.5); Lymphocytes Absolute Auto 1.9 10^3/uL (1.2-3.8); Lymphocytes Percent Auto 7.9 % (20.5-60.0); Mean Corpuscular HGB Conc 31.3 g/dL (29.9-35.2); Mean Corpuscular Hemoglobin 25.2 pg (26.7-34.0); Mean Corpuscular Volume 80.5 fL (81.0-99.0); Mean Platelet Volume 8.6 fL (9.5-13.5); Monocytes Absolute Auto 1.7 10^3/uL (0.3-0.8); Monocytes Percent Auto 7.1 % (1.7-12.0); Neutrophils Absolute Auto 20.2 10^3/uL (1.4-6.5); Neutrophils Percent Auto 84.2 % (43.0-75.0); Platelet Count 828 10^3/uL (150-450); Red Blood Count 3.53 10^6/uL (4.20-5.40); Red Cell Distribution Width 21.6 % (11.0-15.0)
[2024-09-20] MEDS: ATORVASTATIN CALCIUM 20 MG TABLET PO (20:39)
[2024-09-20] MEDS: ALPRAZOLAM 0.5 MG TABLET PO (20:40)
[2024-09-20] MEDS: HYOSCYAMINE SULFATE 0.125 MG TAB.SUBL SL (20:40)
[2024-09-20] MEDS: LIDOCAINE 5% PATCH 1 PATCH TOPICAL (20:40)
[2024-09-21] VITALS (12 sets, daily range): BP systolic 146–165; BP diastolic 85–98; PULSE 83–95; TEMP 36.4–36.7; O2SAT 95–96
[2024-09-21] MEDS: ONDANSETRON PF 4 MG/2 ML VIAL IV (03:09)
[2024-09-21] MEDS: GABAPENTIN 300 MG CAPSULE 600 MG PO ×2 (03:09→12:09)
[2024-09-21] MEDS: ACETAMINOPHEN 325 MG TABLET 650 MG PO ×2 (03:09→10:43)
[2024-09-21] MEDS: BENZONATATE 100 MG CAPSULE 200 MG PO (05:12)
[2024-09-21] MEDS: GUAIFENESIN 200 MG/DEXTROMETHORPHAN 20 MG 10 ML UNIT DOSE CUP PO ×2 (05:13→12:09)
[2024-09-21 06:25] LABS: Basophils Percent Auto 0.1 % (0.2-2.0); Hematocrit 29.5 % (36.0-48.0); Hemoglobin 9.3 g/dL (12.0-16.0); Immature Granulocytes Abs Auto 0.24 10^3/uL (0.00-0.03); Immature Granulocytes Pct Auto 1.1 % (0.0-0.5); Lymphocytes Absolute Auto 2.4 10^3/uL (1.2-3.8); Lymphocytes Percent Auto 10.6 % (20.5-60.0); Mean Corpuscular HGB Conc 31.5 g/dL (29.9-35.2); Mean Corpuscular Hemoglobin 25.4 pg (26.7-34.0); Mean Corpuscular Volume 80.6 fL (81.0-99.0); Mean Platelet Volume 8.6 fL (9.5-13.5); Monocytes Absolute Auto 2.6 10^3/uL (0.3-0.8); Monocytes Percent Auto 11.5 % (1.7-12.0); Neutrophils Absolute Auto 17.4 10^3/uL (1.4-6.5); Neutrophils Percent Auto 76.7 % (43.0-75.0); Platelet Count 887 10^3/uL (150-450); Red Blood Count 3.66 10^6/uL (4.20-5.40); Red Cell Distribution Width 21.8 % (11.0-15.0); White Blood Count 22.7 10^3/uL (4.0-11.0)
[2024-09-21 06:44] LABS: Alanine Aminotransferase 210 U/L (14-59); Albumin Globulin Ratio 0.3; Albumin Level 1.6 g/dL (3.4-5.0); Alkaline Phosphatase 620 U/L (46-116); Anion Gap 13.7; Aspartate Amino Transferase 194 U/L (15-37); BUN Creatinine Ratio 34.2; Bilirubin Total 0.6 mg/dL (0.2-1.0); Calcium 9.8 mg/dL (8.5-10.1); Chloride 102 mmol/L (98-107); Estimated GFR (African America >60 (>=60 mL/min/1.73m^2); Estimated GFR (Non-African Ame >60 (>=60 mL/min/1.73m^2); Globulin 5.8 g/dL; Glucose 149 mg/dL (74-106); Potassium 4.7 mmol/L (3.5-5.1); Sodium 140 mmol/L (136-145); Total Protein 7.4 g/dL (6.4-8.2)
[2024-09-21 07:21] LABS: Amylase 15 U/L (25-115)
--- NOTE | 2024-09-21 08:23 | CT_ITS ---
The [address] [address] Patient Name: JAIME BURTON MRN: [id number] date: 1975 Sex: F Assigned Patient Location: [place] Current Patient Location: [place] Accession/Order Number: [id number] Exam Date: 09/21/2024 10:41 Report Date: 09/21/2024 10:48 At the request of: MEENAKSHI MCCLAIN MD Procedure: CT abdomen pelvis w con CT ABDOMEN AND PELVIS WITH INTRAVENOUS CONTRAST: CLINICAL HISTORY: elevated lft COMPARISON: 09/17/2019 TECHNIQUE: Spiral images were obtained through the abdomen and pelvis following the administration of intravenous contrast. This CT exam was performed using one or more following dose reduction techniques: Automated exposure control, adjustment of the mA and/or kV according to patient size, or use of iterative reconstruction technique. FINDINGS: Lung Bases: [Small effusions. Parenchymal opacity likely atelectasis or scarring greatest left. Moderate size hiatal hernia. Trace pericardial effusion.] Organs:Gallbladder absent. Slight heterogeneous parenchymal enhancement of the liver. Liver is enlarged 21 cm. multifocal subcentimeter hypoattenuation of attenuation of the spleen. No splenomegaly. Adrenals, kidneys, and pancreas are unremarkable.[ GI: Mild to moderate retained stool. No bowel obstruction[ Pelvis: Bladder collapsed. uterus unremarkable. No adnexal mass.] Peritoneum/Retroperitoneum:No free air. Trace free pelvic fluid. Evidence of lymphadenopathy identified rachid hepatic region and periaortic region. This measures up to 2.2 x 3.7 cm in size And 1.4 x 2.9 cm in size. Periaortic Adenopathy 1.5 x 2.3 cm in size.[ Abd wall/Bones:L1 compression fracture likely chronic[ CT/CT abdomen pelvis w con IMPRESSION: Continued adenopathy this may raise possibility of underlying lymphoproliferative process. Hepatomegaly with slight heterogeneous enhancement noted Multifocal subcentimeter areas of hypoattenuation involving the spleen. Moderate size hiatal hernia. Impression dictated by: Bonilla Higuera M.D. 09/21/2024 10:48 AM Dictation Location: [place] [address] Electronically authenticated by: [id number] Y Date: 09/21/2024 10:48
--- NOTE | 2024-09-21 08:29 | P.DS_ITS ---
DS: Providers Provider Date of admission: 09/15/24 21:00 Primary care physician: Domi Altamirano NP Consults: 09/16/24 Consult to Oncology Routine Consulting Provider: Li Ku Reason for consultation: low hemoglobin/hematology consult Consult to Oncology Routine Consulting Provider: Katerine Chance Reason for consultation: Hematology Has provider been notified: Yes 09/16/24 08:56 Consult to Dietitian Routine Reason for consultation: Food behaviour, dietary plan for anemia 09/16/24 09:00 Occupational Therapy Eval and Treat Routine Reason for consultation: Pre-syncope Has provider been notified: No Physical Therapy Eval and Treat Routine Reason for consultation: Pre-syncope Has provider been notified: No DS: Diagnosis Discharge Diagnosis (1) Anemia requiring transfusions: (2) Heat exhaustion: Qualifiers: Encounter type: initial encounter Qualified Code(s): T67.5XXA - Heat exhaustion, unspecified, initial encounter (3) Symptomatic anemia: (4) Near syncope: (5) Thrombocytosis: Plan Admission findings: Sinus tachycardia, anemia, leukocytosis, thrombocythemia, hypokalemia Anemia requiring transfusions: Down further today, type cross and transfuse 2 units, Tylenol, Benadryl, steroids, Lasix in between Heat exhaustion with acute elevation in creatinine: Improving Hyperglycemia-improving Elevated liver function test- worse on day of D/C Hypomagnesemia-pending Folate deficiency-supplement Thrombocythemia: Improved today Remote history of alcohol abuse Severe protein calorie malnutrition-diet supplement Acute exacerbation of COPD with acute bronchitis complicated by immune deficiency secondary to the blood disorder as outlined above-maintain current antibiotics, sputum culture pending, labs for atypicals pending Hypokalemia-improved Admission status: Patient feeling on initial observational time., Will maintain patient as inpatient status is medically necessary treatment will span 2 midnights, due to acute exacerbation of COPD secondary to acute bronchitis DS: Summary Hospital Course Hospital Course: Patient was admitted with acute anemia, uncertain etiology, with white blood cell count elevated and thrombocythemia possible blood disorder. Undetermined. When I saw patient she was having acute exacerbation of COPD so she started on steroids aerosols and antibiotics, did produce a sputum culture that is pending at this time. Plan was to discharge yesterday as she was overall improved except her anemia returned requiring transfusion of 2 more units, plan then was to discharge today if stable and her hemoglobin is stable, liver function test are elevated, checking CT scan of abdomen and pelvis and repeating lab work lat er today, if liver test are stable, CT scan unremarkable patient will prefer to be discharged to home in improved condition. Medications see list. Follow-up with oncology on Sunday and PCP within this next week. Time Spent with Patient Time attestation: Total time spent providing and/or coordinating discharge services: Exam Constitutional Vital Signs, click to edit/add: Last Vital Signs Temp 97.6 F 09/21/24 05:55 Pulse 94 H 09/21/24 08:00 Resp 18 09/20/24 20:45 BP 165/98 H 09/21/24 05:55 Pulse Ox 95 09/21/24 05:55 O2 Del Method Room Air 09/21/24 05:55 Documenting provider has reviewed patient's vital signs: yes Common normals: no apparent distress Chest Common normals: inspection of chest normal Respiratory Common normals: normal respiratory effort and no retractions; not clear to ascultation bilaterally Auscultation: rhonchi (Seems improved from previous day) and wheezes (Faint with cough) Cardio Common normals: regular rate, regular rhythm, no gallops and no murmurs GI Common normals: Normal to inspection, nondistended, normoactive bowel sounds present, soft to palpation and no hepatosplenomegaly Neuro Common normals: CN's II-XII intact bilaterally, moves all extremities and no focal motor deficits DS: Data Data Completed and Pending Labs on day of discharge: Labs from last 24 hours 09/21/24 09/20/24 09/20/24 05:55 18:30 08:12 WBC 22.7 H 24.0 H RBC 3.66 L 3.53 L Hgb 9.3 L 8.9 L Hct 29.5 L 28.4 L MCV 80.6 L 80.5 L MCH 25.4 L 25.2 L MCHC 31.5 31.3 RDW 21.8 H 21.6 H Plt Count 887 H 828 H MPV 8.6 L 8.6 L Neut % (Auto) 76.7 H 84.2 H Lymph % (Auto) 10.6 L 7.9 L [place] % (Auto) 11.5 7.1 Eos % (Auto) 0.0 L 0.0 L Baso % (Auto) 0.1 L 0.1 L Neut # (Auto) 17.4 H 20.2 H Lymph # (Auto) 2.4 1.9 [place] # (Auto) 2.6 H 1.7 H Eos # (Auto) 0.0 0.0 Baso # (Auto) 0.0 0.0 Abs Immat Gran (auto) 0.24 H 0.17 H Imm/Tot Granulo (auto) 1.1 H 0.7 H Sodium 140 Potassium 4.7 Chloride 102 Carbon Dioxide 29.0 Anion Gap 13.7 BUN 13.0 Creatinine 0.38 L Est GFR ( Amer) >60 Est GFR (Non-Af Amer) >60 BUN/Creatinine Ratio 34.2 Glucose 149 H Calcium 9.8 Total Bilirubin 0.6 AST 194 H ALT 210 H Alkaline Phosphatase 620 H Total Protein 7.4 Albumin 1.6 L Globulin 5.8 Albumin/Globulin Ratio 0.3 Amylase 15 L Lipase 22.0 Blood Type O Positive Antibody Screen Negative Crossmatch See Detail Preliminary micro results at discharge 09/18/24 13:30 Blood Culture Result 2 - Preliminary Blood - Right Hand NO GROWTH AT 36-48 HOURS. FINAL TO FOLLOW. 09/18/24 13:22 Blood Culture Result 1 - Preliminary Blood - Left Hand NO GROWTH AT 36-48 HOURS. FINAL TO FOLLOW. 09/18/24 09:53 Lower Respiratory Culture - Preliminary Sputum - Expectorated Sputum Discharge Plan Discharge Disposition: Home, Self-Care Condition: Serious Discharge Medications: New levofloxacin 500 mg tablet 500 mg PO DAILY 10 Days Qty: 10 0RF gabapentin 600 mg tablet 600 mg PO Q8H Qty: 90 2RF Continued gabapentin 400 mg capsule 400 mg PO Q8H PRN (Reason: back pain) omeprazole 40 mg capsule,delayed release(DR/EC) 40 mg PO BID atorvastatin 20 mg tablet 20 mg PO .QHS albuterol sulfate 90 mcg/actuation HFA aerosol inhaler 2 puff INHALATION Q6H PRN (Reason: shortness of breath or wheezing) losartan 50 mg tablet 50 mg PO DAILY cetirizine 10 mg tablet 10 mg PO DAILY fluticasone propionate 50 mcg/actuation spray,suspension 2 spray INTRANASAL BID metoprolol tartrate 50 mg tablet 50 mg PO BID Print Language: Hungarian Patient Instructions: COPD (Chronic Obstructive Pulmonary Disease) (DC), Anemia (DC) Forms: Portal Instructions Follow Up Appointments: Michaela Cook., September 23, 2024 at 2:45pm. [phone], [facility] Call Sunday for Follow up with PCP Domi Altamirano [phone]
[2024-09-21 10:16] LABS: Alanine Aminotransferase 197 U/L (14-59); Albumin Globulin Ratio 0.3; Albumin Level 1.7 g/dL (3.4-5.0); Alkaline Phosphatase 624 U/L (46-116); Aspartate Amino Transferase 147 U/L (15-37); BUN Creatinine Ratio 26.1; Bilirubin Total 0.5 mg/dL (0.2-1.0); Calcium 9.9 mg/dL (8.5-10.1); Carbon Dioxide 31.1 mmol/L (21.0-32.0); Chloride 101 mmol/L (98-107); Estimated GFR (African America >60 (>=60 mL/min/1.73m^2); Estimated GFR (Non-African Ame >60 (>=60 mL/min/1.73m^2); Globulin 5.8 g/dL; Glucose 115 mg/dL (74-106); Potassium 5.1 mmol/L (3.5-5.1); Sodium 140 mmol/L (136-145); Total Protein 7.5 g/dL (6.4-8.2)
[2024-09-21] MEDS: PANTOPRAZOLE SODIUM 40 MG VIAL IV (10:42)
[2024-09-21] MEDS: PROSTAT 15 GM PROTEIN/100 CAL 30 ML LIQUID PACKET PO (10:42)
[2024-09-21] MEDS: POLYETHYLENE GLYCOL 3350 17 GM POWDER PACKET PO (10:42)
[2024-09-21] MEDS: CETIRIZINE HCL 10 MG TABLET PO (10:43)
[2024-09-21] MEDS: METOPROLOL TARTRATE 50 MG TABLET PO (10:43)
[2024-09-21] MEDS: FOLIC ACID 1 MG TABLET PO (10:43)
[2024-09-21] MEDS: HYOSCYAMINE SULFATE 0.125 MG TAB.SUBL SL (10:43)
[2024-09-21] MEDS: FLUTICASONE PROPIONATE 50 MCG NASAL SPRAY 2 SPRAY NS (10:43)
[2024-09-21] MEDS: LEVOFLOXACIN IN DEXTROSE 5 % 750 MG/150 ML PREMIX 100 MG IV (10:44)
[2024-09-21] MEDS: LOSARTAN POTASSIUM 50 MG TABLET PO (10:44)
[2024-09-21] MEDS: ENSURE HP 237 ML LIQUID PO (10:44)
[2024-09-21] MEDS: CEFTRIAXONE 1,000 MG in 0.9 % SODIUM CHLORIDE 50 ML 100 MG IV (12:10)
--- NOTE | 2024-09-22 09:15 | PC.NURSE ---
Follow up appt. on 09/29 @ 11:30am with Domi Altamirano, MIGUEL A [phone]
--- NOTE | 2024-09-22 11:54 | CM.DCFOLLOWU ---
Incorrect phone number 09/22/24
--- NOTE | 2024-09-22 12:07 | CM.DCFOLLOWU ---
Called pt's emergency contact and got pt's correct number 1st attempt 09/22/24, no contact
--- NOTE | 2024-09-22 15:29 | CM.DCFOLLOWU ---
Person spoke with: patient How are you feeling? not well How is your pain? no pain just not feeling well Did you understand your discharge instructions?yes Do you have any questions about your discharge instructions?no Were you given any prescriptions at discharge?yes Were you able to get your prescriptions filled?yes Do you understand how to take your medications as ordered?yes Do you have any questions about your follow up appointment and do you plan to keep your follow up appointment? no questions has follow up tomorrow Is there anything else that you would like to discuss? case management expressed to let doctor Chance know that she is not feeling well, possibly needing labs done. Questions/Comments/Concerns/Other:none
--- NOTE | 2024-09-23 12:02 | CM.NOTE ---
Fady escamilla pertussis report to Dr. Swenson and updated Orly Lucero for reporting.
== END 2024-09-21 12:57 | disposition home or self-care (01) | DRG 811 ==
LOC: ER 19:52 → MS 21:05
PROVIDERS: Physician Assistant; Registered Nurse; Admitting Provider Student in an Organized Health Care Education/Training Program; Emergency Provider Emergency Medicine; PCP Nurse Practitioner; Visit Provider Family Medicine
DX: D50.9 Iron deficiency anemia, unspecified (principal); E43 Unspecified severe protein-calorie malnutrition; J44.1 Chronic obstructive pulmonary disease with (acute) exacerbation; J44.0 Chronic obstructive pulmonary disease with (acute) lower respiratory infection; D84.9 Immunodeficiency, unspecified; Z68.1 Body mass index [BMI] 19.9 or less, adult; D75.839 Thrombocytosis, unspecified; R55 Syncope and collapse; E87.6 Hypokalemia; E88.09 Other disorders of plasma-protein metabolism, not elsewhere classified; T67.5XXA Heat exhaustion, unspecified, initial encounter; X30.XXXA Exposure to excessive natural heat, initial encounter; I10 Essential (primary) hypertension; F17.210 Nicotine dependence, cigarettes, uncomplicated; J44.9 Chronic obstructive pulmonary disease, unspecified; Z79.899 Other long term (current) drug therapy; E78.00 Pure hypercholesterolemia, unspecified; K21.9 Gastro-esophageal reflux disease without esophagitis; M79.7 Fibromyalgia; Z90.49 Acquired absence of other specified parts of digestive tract; E53.8 Deficiency of other specified B group vitamins; R79.89 Other specified abnormal findings of blood chemistry; F10.11 Alcohol abuse, in remission; R50.9 Fever, unspecified; R00.0 Tachycardia, unspecified; J20.9 Acute bronchitis, unspecified; E11.65 Type 2 diabetes mellitus with hyperglycemia
CPT/HCPCS: 36415; 36430; 70450; 71046; 71250; 74176; 74177; 80053; 80307; 81001; 82150; 82550; 82553; 82607; 82668; 82728; 82746; 82784; 82785; 83020; 83540; 83550; 83605; 83615; 83690; 83735; 84155; 84165; 84436; 84443; 84484; 85007; 85025; 85027; 85045; 85610; 85730; 86615; 86850; 86900; 86901; 86923; 87040; 87070; 87205; 87420; 87804; 87811; 88184; 88185; 88189; 93005; 94640; 94668; 94761; 96365; 96375; 99285; 99406; 99999; G0328; J0456; J0696; J1100; J1756; J1885; J1938; J2405; J3475; P9016; Q9967

== ENCOUNTER 2024-09-24 09:40 | Outpatient (OUT) | payer BC, SELFPAY ==
[2024-09-24 10:13] LABS: Hematocrit 35.2 % (36.0-48.0); Hemoglobin 10.8 g/dL (12.0-16.0); Mean Corpuscular HGB Conc 30.7 g/dL (29.9-35.2); Mean Corpuscular Hemoglobin 24.9 pg (26.7-34.0); Mean Corpuscular Volume 81.1 fL (81.0-99.0); Platelet Count 981 10^3/uL (150-450); Red Blood Count 4.34 10^6/uL (4.20-5.40); White Blood Count 19.9 10^3/uL (4.0-11.0)
[2024-09-24 10:48] LABS: Alanine Aminotransferase 71 U/L (14-59); Albumin Globulin Ratio 0.3; Alkaline Phosphatase 476 U/L (46-116); Anion Gap 15.8; Anisocytosis 2+; Aspartate Amino Transferase 19 U/L (15-37); Basophils Abs Manual 0.00 10^3/uL (0.00-0.10); Basophils Percent Manual 0.0 % (0.2-2.0); Blood Urea Nitrogen 11.0 mg/dL (7.0-18.0); Calcium 9.7 mg/dL (8.5-10.1); Carbon Dioxide 27.8 mmol/L (21.0-32.0); Chloride 98 mmol/L (98-107); Eosinophils Absolute Manual 0.19 10^3/uL (0.00-0.70); Eosinophils Percent Manual 1.0 % (0.9-7.0); Estimated GFR (African America >60 (>=60 mL/min/1.73m^2); Estimated GFR (Non-African Ame >60 (>=60 mL/min/1.73m^2); Globulin 6.3 g/dL; Glucose 114 mg/dL (74-106); Lymphocytes Absolute Manual 5.57 10^3/uL (1.20-3.80); Lymphocytes Percent Manual 28.0 % (20.5-60.0); Monocytes Absolute Manual 1.99 10^3/uL (0.30-0.80); Monocytes Percent Manual 10.0 % (1.7-12.0); Potassium 4.6 mmol/L (3.5-5.1); Segmented Neut Absolute Manual 12.13 10^3/uL (1.4-6.5); Segmented Neutrophils % Manual 61.0 (43.0-75.0); Sodium 137 mmol/L (136-145); Total Protein 8.1 g/dL (6.4-8.2)
[2024-09-24 11:01] LABS: Albumin Level 1.8 g/dL (3.4-5.0)
== END 2024-09-24 09:41 | disposition home or self-care (01) ==
LOC: LAB 09:42
PROVIDERS: PCP Family Medicine; Visit Provider Family Medicine
DX: A37.90 Whooping cough, unspecified species without pneumonia (principal)
CPT/HCPCS: 36415; 80053; 85007; 85027

== ENCOUNTER 2024-09-30 07:33 | Outpatient (RCR) | payer BC, SELFPAY ==
[2024-09-30 08:53] LABS: Hematocrit 29.2 % (36.0-48.0); Hemoglobin 9.0 g/dL (12.0-16.0); Mean Corpuscular HGB Conc 30.8 g/dL (29.9-35.2); Mean Corpuscular Hemoglobin 25.2 pg (26.7-34.0); Mean Corpuscular Volume 81.8 fL (81.0-99.0); Red Blood Count 3.57 10^6/uL (4.20-5.40); Reticulocyte Pct Auto 1.34 % (0.60-3.10); White Blood Count 25.4 10^3/uL (4.0-11.0)
[2024-09-30 09:30] LABS: Platelet Count 1006 10^3/uL (150-450)
[2024-09-30 09:45] LABS: Basophils Abs Manual 0.00 10^3/uL (0.00-0.10); Basophils Percent Manual 0.0 % (0.2-2.0); Eosinophils Absolute Manual 0.00 10^3/uL (0.00-0.70); Eosinophils Percent Manual 0.0 % (0.9-7.0); Lymphocytes Absolute Manual 4.31 10^3/uL (1.20-3.80); Lymphocytes Percent Manual 17.0 % (20.5-60.0); Monocytes Absolute Manual 3.30 10^3/uL (0.30-0.80); Monocytes Percent Manual 13.0 % (1.7-12.0); Segmented Neut Absolute Manual 17.78 10^3/uL (1.4-6.5); Segmented Neutrophils % Manual 70.0 (43.0-75.0)
[2024-09-30 09:47] LABS: Anisocytosis 2+
== END 2024-10-01 08:09 | disposition home or self-care (01) ==
LOC: HEMC 07:33
PROVIDERS: PCP Nurse Practitioner; Visit Provider Internal Medicine Hematology & Oncology
DX: D64.9 Anemia, unspecified (principal); D75.839 Thrombocytosis, unspecified; D72.829 Elevated white blood cell count, unspecified; Z90.49 Acquired absence of other specified parts of digestive tract; F17.210 Nicotine dependence, cigarettes, uncomplicated; E46 Unspecified protein-calorie malnutrition; Z68.1 Body mass index [BMI] 19.9 or less, adult; R59.1 Generalized enlarged lymph nodes; R91.1 Solitary pulmonary nodule
CPT/HCPCS: 36415; 80053; 82728; 83540; 83550; 83615; 85007; 85027; 85045; 85652; 86140; G0463

== ENCOUNTER 2024-10-07 17:42 | Observation (INO) | payer BC, SELFPAY ==
--- OUTSIDE RECORDS SUMMARY | 2024-08-15 03:51 | XMS_ITS | Continuity of Care Document ---
Author Organization [facility] Address [address] [place] [address] Phone Care Team Providers Care Siderographer Name Role Phone Dylan Vincent DDS Unavailable [...] 1st Film Nutrit Couns For Control Of [place] Dis July Comp Oral Eval New/estab Patient 2024 Comp Oral Eval New/estab Patient 2024 Extract; Erupted Th/exposted Rt 025 Oral Hygiene Instruction Intraoral-periapical 1st Film Bitewig-single Film Limited Oral Eval Oral Hygiene Instruction COVID-19 Antigen Test Nutrit Couns For Control Of [place] Dis Apr Post Op Visit Dental Post [...] 3s; Posterior Nutrit Couns For Control Of [place] Dis Mar Resin Composite 4+s; Posterior Oral [...] Diagnoses Date Provider Providers Copied on Encounter [facility], [address] [place], [place], [id number], [place] tel:[phone] [facility] Dental Clinic dn (chief complaint) Encounter for screening for dental disorders 5 Vincent DDS Yixue. [address] [place], [address], [place]. tel:[phone] [facility], [address] [place] [address], [id number], [place] tel:[phone] [facility] Dental Clinic ext (chief complaint) Encounter for screening for dental disorders 5 Vincent DDS Yixue. [address] [place] [address], [address], [place]. tel:[phone] [facility], [address] [place] [address], [id number], [place] tel:[phone] [facility] Dental Clinic er (chief complaint) Encounter for screening for dental disorders 5 Vincent DDS Yixue. [address] [place] [address], [address], [place]. tel:[phone] [facility], [address] [place] [address], [id number], [place] tel:[phone] Dental Clinic POV (chief complaint) Encounter for screening for COVID-19Encounter for screening for dental disorders 2 José Luis Ayoub. [address] [place] [address], [address], [place]. tel:[phone] [facility], [address] [place] [address], [id number], [place] tel:[phone] Dental Clinic No Information 2 Ruddy Delgado. [address] [place] [address], [id number] , [place]. tel:[phone] [facility], [address] [place] [address], [id number], [place] tel:[phone] COVID [facility] No Information 2 eKrvin Adkins. [address], [place], [id number] , [place]. tel:[phone] [facility], [address], [place], [id number], [place] tel:[phone] Dental Clinic Dental Limited (chief complaint) Encounter for screening for dental disorders 2 Ruddy Delgado. [address], [place], [id number] , [place]. tel:+ [phone] [facility], [address], [place], [id number], [place] tel:[phone] Dental Clinic Fill (chief complaint) Encounter for screening for dental disorders 2 Ruddy Delgado. [address], [place], [id number] , [place]. tel: [phone] [facility], [address], [place], [id number], [place] tel:[phone] Dental Clinic Fillings (chief complaint) Encounter for screening for dental disorders 2 Ruddy Delgado. [address], [place], [id number] , [place]. tel:+ [phone] [facility], [address], [place], [id number], [place] tel:[phone] Dental Clinic Fill (chief complaint) Encounter for screening for dental disorders 2 Ruddy Delgado. [address], [place], [id number] , [place]. tel:+ [phone] [facility], [address], [place], [id number], [place] tel:[phone] Dental Clinic filling (chief complaint) Encounter for screening for dental disorders 2 José Luis Ayoub. [address] [place], [address], [place]. tel:+ [phone] [facility], [address], [place], [id number], [place] tel:[phone] Dental Clinic Filling (chief complaint) Encounter for screening for dental disorders 2 Ordonez DDS Mega. [address] [place], [address], [place]. tel: [phone] [facility], [address], [place], [id number], [place] tel:[phone] Dental Clinic DL (chief complaint) Encounter for screening for dental disorders 2 Ordonez DDS Mega. [address] [place], [address], [place]. tel: [phone] [facility], [address] [place] [address], [id number], [place] tel:[phone] Dental Clinic dental new (chief complaint) Encounter for screening for dental disorders 9 Domarkos DDS Alfredojulianek. [address] [place], [place], [id number] , [place]. tel: [phone] [facility], [address] [place] [address], [id number], [place] tel:[phone] [facility] Detox Encounter for test, result negativeAlcohol dependence with withdrawal, unspecifiedAnxiety disorder, unspecifiedCough Mar-0 8-201 8 Danielson Zachary. [address] [place], [address], [place]. tel: [phone] [facility], [address] [place] [address], [id number], [place] tel:[phone] [facility] Detox [place]: (chief complaint) Encounter for test, result negativeAlcohol dependence with withdrawal, unspecifiedAnxiety disorder, unspecifiedCough Mar-0 7-201 8 Danielson Zachary. [address] [place], [address], [place]. tel: [phone] [facility], [address] [place] [address], [id number], [place] tel:[phone] [facility] Detox Encounter for test, result negativeAlcohol dependence with withdrawal, unspecifiedAnxiety disorder, unspecified Mar-0 6-201 8 Danielsonagatha Sharma. [address] [place], [address], [place]. tel:[phone] [facility], [address] [place] [address], [id number], [place] tel:[phone] [facility] Detox Encounter for test, result negativeAlcohol dependence with withdrawal, unspecifiedAnxiety disorder, unspecified Mar-0 6-201 8 Danielsonagatha Sharma. [address] [place], [address], [place]. tel:[phone] [facility], [address] [place] [address], [id number], [place] tel:[phone] [facility] Detox [place]: (chief complaint) Encounter for test, result negativeAlcohol dependence with withdrawal, unspecifiedAnxiety disorder, unspecified Mar-0 5-201 8 [place] Sharma. [address] [place], [address], [place]. tel:[phone] Family History Family Member Type Diagnosis Age [...] mellitus Payers Payer name Insurance type Covered democrat ID Sarah monroe(s) Randal [facility] 17 [id number] Social History Type Description Quantity Date Captured [...] Of Treatment Date Type Action Status Goal Tdap. Due on due Goal Influenza vaccine. Due on due Goal PRAPARE ASSESSMENT. Due on due Goal Lipid panel. Due on due Goal Depression screening. Due on due Goal Tdap Vaccine. Due on 2024 due Goal Hepatitis C screening. Due o n due Goal Unhealthy drug use screening . Due on due Goal HPV. Due on due Goal Influenza vaccine. Due [...] Tdap Vaccine. Due on 2024 due Goal Depression screening. Due on due Goal Lipid panel. Due on 025 due Goal PRAPARE ASSESSMENT. Due on A pr due Goal Influenza vaccine. Due on Ap r due Goal Tdap. Due on due Goal Hepatitis C screening. Due o n due Goal HPV. Due on due Goal Unhealthy drug use screening . Due on due Goal Tobacco cessation counseling completed Goal Tobacco cessation counseling completed History Of Present Illness Encounter Date Complaint History Of Prese nt Illness dn dn ext ext er er POV POV Dental Limited Dental Limited Fill Fillings Fillings Fill filling filling Filling Continue with tr eatment DL DL dental new dental [facility] [place]: Doing better now than when last seen. Coughing 5 or 6 days. Bringing up green and dark sputum. Has used a Ventolin inhaler in the past. 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 Functional Status Date Functional Assessmen t No Information Instructions Date Instruction Additional Infor mation No Information Assessments Type Assessment Date No Information Patient Care Teams Name Effective Dates (start - stop) Status Members No Information
--- OUTSIDE RECORDS SUMMARY | 2024-09-30 04:30 | XMS_ITS ---
Author Organization The [facility] in [place] Address [address] [place] [address] Care Team Providers Care Med Specialist Name Role Phone Mansoor Swenson Primary Care Provider Katerine Chance Unavailable [phone] REASON FOR VISIT New PT Hem Encounters Encounter Location Date Provider Diagnosis [facility] [address] [place] [address] 09/30/2024 Katerine Chance Plan Of Treatment Next Appt Details Provider Name:Mansoor Swenson, 01:00:00 PM, [address] [place], [address], Provider Name:Katerine Chance , 10/28/2024 01:30:00 PM, [address] [place], [address], Progress Notes * Rylee MERRILL KDOB:[birth year] (49 yo F)Acc No.[id number]:09/30/2024 UNLOCKED PROGRESS NOTE Progress Notes Patient: Olaf GOODWINRylee WYLIE Provider: Sandeep Chance M.D. :1975 A ge:49 Y S ex:Female Date:09/30/2024 Address:[facility] [address] [facility] [address] [place] [id number] Pcp:Mansoor Swenson Subjective: * Chief Complaints: * 1 . MD New PT Hem. * Medical History: Objective: * Vitals: Assessment: Plan: * Treatment: * * Electronic signature of Fannie Chance MD, [id number] on 10/07/2024 at 05:47 PM EDT Sign off status: Pending Visit Status: A NSPH (Voice) * Provider: Sandeep Chance M.D. Date: 09/30/2024 Generated for Colby woods/Titi/eTransmitting on: 10/07/2024 05:47 PM EDT
--- OUTSIDE RECORDS SUMMARY | 2024-10-01 09:15 | XMS_ITS ---
Author Organization The [facility] in [place] Address [address] [place] [address] Care Team Providers Care Departmental Buyer Name Role Phone Leela Mansoor Primary Care Provider Allergies Allergen (clinical drug ingredient) Drug/Non Drug Allergy documented on EMR Reaction Allergy Type Onset Date Status prednisone predniSONE Insides Feel Like On Fire Drug Allergy Active REASON FOR VISIT Establish Medications Medication SIG (Take, Route, Frequency, Duration) Notes Start Date End Date Status Ondansetron 4 MG 1 tablet on the tong ue and allow to dissolve Orally qid 10/01/2024 Active Albuterol Sulfate HFA 108 (90 Base) MCG/ACT INHALE 2 PUFFS EVERY 6 HOURS IF NEEDED FOR WHEEZING OR SHORTNESS OF BREATH. Inhalation for 90 Days Active Stiolto Respimat 2.5-2.5 MCG/ACT 2 puffs Inhalation Once a day for 30 days 10/01/2024 Active Gabapentin 600 MG TAKE 1 TABLET BY JULIENNE TH EVERY 8 HOURS Oral for 30 Days Active Atorvastatin Calcium 20 MG TAKE 1 TABLET BY MOUTH AT BEDTIME Oral for 90 Days Active Omeprazole 40 MG 1 tablet Oral Twice Daily for 90 days Active Metoprolol Tartrate 50 MG 1 tablet with food Orally Twice a day for 90 days Active Losartan Potassium 50 MG 1 tablet Orally Once a day for 90 days Active Meloxicam 15 MG 1 tablet Orally Once a day for 30 days 10/01/2024 Active Social History Tobacco Use: Social History Observation Description Date Details (start date - stop date) Current Smoker NA - NA Tobacco Control (Standard) Question Answer Notes Tobacco use: Current smoker How often do you smoke cigarettes? Every day How many cigarettes a day do you smoke? 11-20 How soon after you wake up do you smoke your fir st cigarette? Within 5 minutes AUDIT-C (Standard) Question Answer Notes Did you have a drink containing alcohol in the p ast year? No Points 0 Interpretation Negative Problems Problem Type SNOMED Code ICD Code Onset Dates Problem Status W/U Status Risk Notes Problem Hypertension (01080673) Hypertension (I10) Active confirmed Problem Asthma (254794316) Asthma (J45.909) Active confirmed Problem COPD - Chronic obstructive pulmonary disease (59596391) COPD (chronic obstructive pulmonary disease) (J44.9) Active confirmed Problem Anemia (089560604) Anemia (D64.9) Active confirmed Problem Hypercholesterem ia (E78.00) Active confirmed Problem Thrombocythemia (3312990) Thrombocythemia (D47.3) Active confirmed Vital Signs Weight 108 lbs 10/01/2024 Height 66 in 10/01/2024 Blood pressure systolic 122 mm Hg 10/02/19 25 Blood pressure diastolic 82 mm Hg 025 BMI 17.43 kg/m2 10/01/2024 Encounters Encounter Location Date Provider Diagnosis [facility] [address] [place] [address] 10/01/2024 Mansoor Swenson COPD (chronic obstru ctive pulmonary disease) J44.9 ; Anemia D64.9 and Thrombocythemia D47.3 Assessments Encounter Date Diagnosis (ICD Code) Assessment Notes Treatment Notes Treatment Clinical Notes Section Notes 10/01/2024 COPD (chronic obstructive pulmonary disease) (ICD-10 - J44.9) 10/01/2024 Anemia (ICD-10 - D64.9) 10/01/2024 Thrombocythemia (ICD-10 - D47.3) Plan Of Treatment Medication Medication Name Sig Start Date Stop Date Notes Ondansetron 4 MG 1 tablet on the tong ue and allow to dissolve Orally qid 10/01/2024 Stiolto Respimat 2.5-2.5 MCG/ACT 2 puffs Inhalation Once a day for 30 days 10/01/2024 Meloxicam 15 MG 1 tablet Orally Once a day for 30 days 10/01/2024 Next Appt Details Provider Name:Mansoor Swenson, 01:00:00 PM, [address] [place], [address], Provider Name:Katerine Chance , 10/28/2024 01:30:00 PM, [address] [place], [address], Medications Administered Medication Instructions Date of Administration Dosage Notes Ketorolac Tromethamine 10/01/2024 60 mg Orphenadrine Citrate 10/01/2024 60 mg Progress Notes * Lui MERRILLqueline KDOB:[birth year] (49 yo F)Acc No.[id number]:10/01/2024 New Patient Patient: Rylee MCDOWELL Provider: Randal Swenson ([facility])MD :1975 A ge:49 Y S ex:Female Date:10/01/2024 Address:[facility] [address] Check In:01:17 PM ESTCheck O ut:02:09 PM EST Subjective: * Chief Complaints: * E stablish * HPI: G eneral: Likley blood disoorder - possible myelfibrosis -. D epression Screening: PHQ-2 (2015 Edition) L ittle interest or pleasure in doing things??Nearly every day F eeling down, depressed, or hopeless? N ot at all T otal Score 3 D epression Screening: PHQ-9 L ittle interest or pleasure in doing things?Nearly every day F eeling down, depressed, or hopeless N ot at all T rouble falling or staying asleep, or sleeping too much N early every day F eeling tired or having little energy N early every day P oor appetite or overeating N early every day F eeling bad about yourself or that you are a failure, or have let yourself or your family down N ot at all T rouble concentrating on things, such as reading the newspaper or watching television N ot at all M oving or speaking so slowly that other people could have noticed; or the opposite, being so fidgety or restless that you have been moving around a lot more than usual N ot at all T houghts that you would be better off or of hurting yourself in some way N ot at all T otal Score 1 2 I nterpretation M oderate Depression * ROS: E ENT: hearing changes d enies. v isual changes d enies.?non-healing mouth sores d enies. s wollen glands or neck lumps d enies. h oarseness d enies. s ore throat d enies. d ifficulty swallowing d enies. n ose bleeds d enies. n donya congestion d enies. e ar ache d enies. e ar discharge?denies. r inging in ears d enies. l ight sensitivity d enies. e ye pain d enies. b lurring d enies. e ye irritation d enies. d ouble vision d enies.?vision loss d enies. G eneral/Constitutional: Sweats: D enies. F atigue d enies. S leep problems d enies. A norexia d enies. M alaise d enies. W eight loss d enies.?Fatigue or Weakness d enies. F ever or Chills d enies. C ardiovascular: Shortness of Breath w/lying flat d enies. L ightheadedness/dizziness d enies. C hest tightness/ heavy pressure d enies. S welling of legs, ankles, or feet d enies. W aking up with shortness of breath d enies. C hest pain denies. P alpitations d enies. W eight gain d enies. R espiratory: Chronic or frequent cough d enies. C oughing up blood?denies. D ifficulty breathing d enies. P roductive cough d enies. S noring?denies. S hortness of breath that awakens from sleep (PND) d enies. C hest pain d enies. S putum production d enies. W heezing d enies. M usculoskeletal: Joint pain d enies. J oint Fluid d enies. B ack pain d enies. K nee pain d enies. N iman pain d enies. J oint Stiffness d enies. M uscle cramps d enies. W eakness of muscles d enies. A rthritis d enies. M uscle aches d enies. P ain in shoulder(s) d enies. S wollen joints d enies. * Active Problem List I10 Hypertension Modified On:10/01/2024U Status:confirmed J45.909 Asthma Modified On:10/01/2024 Status:confirmed J44.9 COPD (chronic obstru ctive pulmonary disease) Modified On:10/01/2024 Status:confirmed D64.9 Anemia Modified On:10/01/2024 Status:confirmed E78.00 Hypercholesteremia Modified On:10/01/2024 Status:confirmed A37.90 Pertussis Modified On:09/23/2024 Status:confirmed D64.9 Acute anemia Modified On:09/25/2024 Status:confirmed D47.3 Thrombocythemia Modified On:10/01/2024 Status:confirmed * Medical History: * Surgical History: C lavical Tubal Gall Bladder Removal Appendectomy Exploratory * Hospitalization/Major Diagno stic Procedure: A nemia, Weakness 08/2024 * Family History: F ather: . M other: alive, diagnosed with Diabetes mellitus without mention of complication, type II or unspecified type, not stated as uncontrolled, Unspecified heart disease. S ister(s): alive. S on(s): alive. D aughter(s): alive. 3 sister(s) . 2 son(s) , 1 daughter(s) - healthy. . Sisters- (2). * Social History: T obacco Use: T obacco Control (Standard) T obacco use: C urrent smoker H ow often do you smoke cigarettes? E very day H ow many cigarettes a day do you smoke? 1 1-20 H ow soon after you wake up do you smoke your first cigarette? W ithin 5 minutes D rug/Alcohol: A JOSY-C (Standard) D id you have a drink containing alcohol in the past year? N o P oints 0 I nterpretation N egative * Medications: T akingAlbuterol Sulfate HFA 108 (90 Base) MCG/ACT Aerosol Solution INHALE 2 PUFFS EVERY 6 HOURS IF NEEDED FOR WHEEZING OR SHORTNESS OF BREATH. Inhalation Atorvastatin Calcium 20 MG Tablet TAKE 1 TABLET BY MOUTH AT BEDTIME Oral Gabapentin 600 MG Tablet TAKE 1 TABLET BY MOUTH EVERY 8 HOURS Oral Losartan Potassium 50 MG Tablet 1 tablet Orally Once a day Metoprolol Tartrate 50 MG Tablet 1 tablet with food Orally Twice a day Omeprazole 40 MG Capsule Delayed Release 1 tablet Oral Twice Daily Taking Albuterol Sulfate HFA 108 (90 Base) MCG/ACT Aerosol Solution INHALE 2 PUFFS EVERY 6 HOURS IF NEEDED FOR WHEEZING OR SHORTNESS OF BREATH. Inhalation Taking Atorvastatin Calcium 20 MG Tablet TAKE 1 TABLET BY MOUTH AT BEDTIME Oral Taking Gabapentin 600 MG Tablet TAKE 1 TABLET BY MOUTH EVERY 8 HOURS Oral Taking Losartan Potassium 50 MG Tablet 1 tablet Orally Once a day Taking Metoprolol Tartrate 50 MG Tablet 1 tablet with food Orally Twice a day Taking Omeprazole 40 MG Capsule Delayed Release 1 tablet Oral Twice Daily DiscontinuedAzithromycin 250 MG Tablet 2 pills on first day Orally and once per day days 2-5 Medication List reviewed and reconciled with the patientDiscontinued Azithromycin 250 MG Tablet 2 pills on first day Orally and once per day days 2-5 Medication List reviewed and reconciled with the patient * Allergies: p redniSONE: Insides Feel Like On Fireno[Allergies Verified] Objective: * Vitals: W t:108lbs, Ht: 66 in, BP:122/82mm Hg, BMI:17.43Index, Ht-cm: 167.64 cm, Wt-k.99 kg. * Examination: P hysical Exam: GENERAL: w ell developed, well nourished, in no acute distress. HEAD: n ormocephalic/atraumatic. EYES: p upils equal, round and reactive to light, conjunctivae and sclerae normal. EARS: n o deformity or lesion of external ear, canals and TM appear normal bilaterally, TM's intact, not inflamed with normal light reflex, hearing grossly normal to conversational speech. NOSE: n o deformity, discharge, inflammation, or lesions.? MOUTH: m ucous membranes moist, normal oropharynx and posterior pharynx without lesions or exudates, tongue normal, dentition normal. NECK: n iman supple, no masses or palpable cervical nodes, trachea midline, thyroid without nodules, masses, tenderness, or enlargement. CHEST: n o chest wall deformity, no chest wall tenderness.? LUNGS: n ormal respiratory effort and clear to auscultation, no wheezes, rales, or rhonchi, good air exchange. CARDIO: r egular rate and rhythm, normal S1 and S2, nor murmur, rub, or gallop. PULSES: n ormal capillary refill. ABDOMEN: s oft, non-distended, non-tender, no masses. MUSCULOSKELETAL: n o deformity or scoliosis noted, normal range of motion, joints normal, no erythema, edema, effusion, or ecchymosis. EXTREMITY: n o clubbing, cyanosis, edema, or deformity with normal ROM in both upper and lower bilateral extremities. NEUROLOGIC: g rossly normal. SKIN: n o rashes, ulcerations, or suspicious lesions. LYMPH NODES: n o cervical adenopathy, nodes normal. MENTAL STATUS: a lert and oriented x3, normal mood and affect. Assessment: * Assessment: 1. C OPD (chronic obstructive pulmonary disease) - J44.9 (Primary) 2 . A nemia - D64.9 3 . T hrombocythemia - D47.3 Plan: * Treatment: * Therapeutic Injections: Orphenadrine Citrate : 60 mg (Route: Intramuscular) given by BRIAN Veliz on right buttock? Ketorolac Tromethamine : 60 mg (Route: Intramuscular) given by BRIAN Veliz on left buttock * Procedure Codes: 9 6372 THERAP.INJ. OF MED. INTRAMUSCULAR OR [id number] NORFLEX,UP TO 60MG.J1885 TORADOL, PER 15 MG, Units: 4.00 , Modifiers: JZ * * Sign off status: Completed Visit Status: C HK (Check Out) true * Provider: Randal Swenson (JORGE)MD Date: 10/01/2024 Generated for Colby woods/Titi/Valerieitting on: 10/07/2024 05:47 PM EDT History and Physical Notes * HPI (History of Present Illness) Category Sub-Category Detail Notes Category Not es Depression Screening PHQ-9 Little inte rest or pleasure in doing things: Nearly every day Feeling down, depressed, or hopeless: No t at all Trouble falling or staying asleep, or sl eeping too much: Nearly every day Feeling tired or having little energy: N early every day Poor appetite or overeating: Nearly ever y day Feeling bad about yourself o r that you are a failure, or have let yourself or your family down: Not at all Trouble concentrating on thi ngs, such as reading the newspaper or watching television: Not at all Moving or speaking so slowly that other people could have noticed; or the opposite, being so fidgety or restless that you have been moving around a lot more than usual: Not at all Thoughts that you would be b roland off or of hurting yourself in some way: Not at all Total Score: 12 Interpretation: Moderate Depression General Likley blood di soorder - possible myelfibrosis - Depression Screening PHQ-2 (2015 Edition) Little interest or pleasure in doing things?: Nearly every day Feeling down, depressed, or hopeless?: N ot at all Total Score: 3 Examination Category Sub-Category Detail Notes Category Not es Physical Exam GENERAL: well developed, well nourished, in no acute distress HEAD: normocephalic/atraum atic EYES: pupils equal, round and reactive to light, conjunctivae and sclerae normal EARS: no deformity or lesi on of external ear, canals and TM appear normal bilaterally, TM's intact, not inflamed with normal light reflex, hearing grossly normal to conversational speech NOSE: no deformity, discha rge, inflammation, or lesions MOUTH: mucous membranes patricia st, normal oropharynx and posterior pharynx without lesions or exudates, tongue normal, dentition normal NECK: neck supple, no mass es or palpable cervical nodes, trachea midline, thyroid without nodules, masses, tenderness, or enlargement CHEST: no chest wall deform ity, no chest wall tenderness LUNGS: normal respiratory e ffort and clear to auscultation, no wheezes, rales, or rhonchi, good air exchange CARDIO: regular rate and rhy thm, normal S1 and S2, nor murmur, rub, or gallop PULSES: normal capillary ref ill ABDOMEN: soft, non-distended, non-tender, no masses RECTAL: MUSCULOSKELETAL: no deformity or scol iosis noted, normal range of motion, joints normal, no erythema, edema, effusion, or ecchymosis EXTREMITY: no clubbing, cyanosi s, edema, or deformity with normal ROM in both upper and lower bilateral extremities NEUROLOGIC: grossly normal SKIN: no rashes, ulceratio ns, or suspicious lesions LYMPH NODES: no cervical adenopat hy, nodes normal MENTAL STATUS: alert and oriented x 3, normal mood and affect
--- OUTSIDE RECORDS SUMMARY | 2024-10-03 09:16 | XMS_ITS ---
Author Organization The [facility] in [place] Address [address] [place] [address] Care Team Providers Care Ticket Manager Name Role Phone Mansoor Swenson Primary Care Provider REASON FOR VISIT bone pain- SEND MEDS Medications Medication SIG (Take, Route, Fr equency, Duration) Notes Start Date End Date Status traMADol HCl 50 MG 1 tablet as needed Orally qid for 7 days As needed 10/03/2024 Active Indomethacin 50 MG 1 capsule with food or milk Orally Twice a day for 10 days 10/03/2024 A ctive Encounters Encounter Location Date Provider Diagnosis [facility] [address] [place] [address] 10/03/2024 Mansoor Swenson COPD (chronic obstructive pulmonary disease) J44.9 Assessments Encounter Date Diagnosis (ICD Code) Assessment Notes Treatment Notes Treatment Clinical Notes Section Notes 10/03/2024 COPD (chronic obstructive pulmonary disease) (ICD-10 - J44.9) Plan Of Treatment Medication Medication Name Sig Start Date Stop Date Notes traMADol HCl 50 MG 1 tablet as needed O rally qid for 7 days 10/03/2024 Indomethacin 50 MG 1 capsule with food or milk Orally Twice a day for 10 days 10/03/2024 Meloxicam 15 MG 1 tablet Orally Once a day 10/01/2024 Next Appt Details Provider Name:Mansoor Swenson, 01:00:00 PM, [address] [place], [address], Provider Name:Katerine Chance , 10/28/2024 01:30:00 PM, [address] [place], [address], Progress Notes * Lui MERRILLqueline KDOB:[birth year] (49 yo F)Acc No.[id number]:10/03/2024 Patient: Rylee MCDOWELL :1975 A ge:49 Y S ex:Female Address:[facility] [address] [facility], [place], [address] * Refills Stop Meloxicam Tablet, 15 MG, Orally, 1 tablet, Once a day Start traMADol HCl Tablet, 50 MG, Orally, 28 Tablet, 1 tablet as needed, qid, 7 days, Refills=0 Start Indomethacin Capsule, 50 MG, Orally, 20 Capsule, 1 capsule with food or milk, Twice a day, 10 days, Refills=0 * true * Date: Generated for Colby woods/Titi/Valerieitting on: 0 10/07/2024 05:47 PM EDT
[2024-10-07] VITALS (49 sets, daily range): BP systolic 112–155; BP diastolic 75–99; PULSE 83–143; TEMP 36.5–37.3; O2SAT 93–99; BMI 17.5
--- OUTSIDE RECORDS SUMMARY | 2024-10-07 17:47 | XMS_ITS | Encounter Summary ---
Author Organization [facility] Address [address] [place] [address] Care Team Providers Care Lubricating Machine Tender Name Role Phone Lizzette Malik CNP Primary Care Provider [phone] Domi Altamirano HYDROTHERAPIST Unavailable [phone] Source Comments In the event this information is protected by the Federal Confidentiality of Alcohol and Drug AbusePatient Records regulations: The Federal rules restrict any use of the information to criminally investigate or prosecute any alcohol or drug abuse patient.[facility] Reason for Visit * Reason Comments Radiology CT Encounter Details Date Type Department Care Team ([facility] st Contact Info) Description 06/20/2017 Radiology Radiology [address] [address] Lizzette Malik, HYDROTHERAPIST [address] [place] [address] Social History Tobacco Use Types [...] on filedocumented in this encounter Care Teams Lubricating Machine Tender Relationship Specialty Start Date End Date Lizzette Malik CNP PCP - General Family Medicine 12/04/14 Domi Altamirano CNP Referring Family Medicine 10/14/21 documented as of this encounter
--- OUTSIDE RECORDS SUMMARY | 2024-10-07 17:47 | XMS_ITS | Encounter Summary ---
Demographics Address [address] [place] [address] Mobile Phone Email Address Preferred Language en Marital Status Unmarried Jewish Affiliation Unknown Race White Ethnic Group Not or Lati no Author Organization [facility] Address [address] [place] [address] Care Team Providers Care Rail Engineer Name Role Phone Domi Altamirano NP Unavailable [phone] Hiren Horton MD Primary Care Provider [phone] Domi Altamirano SFDC SOLUTION ARCHITECT Unavailable [phone] Domi Altamirano NP Unavailable [phone] Encounter Details Date Type Department Care Team (Late st Contact Info) Description 09/16/2024 Abstract [facility] [address] [place] [address] Domi Altamirano NP [address] [place] [address] Social History Tobacco Use Types Packs/Day Years [...] declined 10/08/2023 How often do you attend baptist or congregational serv ices? Never 10/08/2023 Do you belong to any clubs o r organizations such as baptist groups, unions, fraternal or athletic groups, or [...] medical care, and heating? Very hard 10/08/2023 [facility] - Occupational [...] were you homeless or living in a alf (including now)? Yes 10/08/2023 Comments Unknown Sex [...] Office Visit [facility] [address] [place] [address] Domi Altamirano NP [address] [place] [address] documented as of this encounter Visit Diagnoses Not on filedocumented in this encounter Care Teams Rail Engineer Relationship Specialty Start Date End Date Hiren Horton MD [address] [place] [id number] PCP - General Family Medicine 07/26/23 Domi Altamirano NP [address] [place] [id number] PCP - [place] [employer] 08/24/24 Domi Altamirano NP [address] [place] [phone] Nurse Practitioner Family Medicine 03/26/22 Domi Altamirano NP [address] [place] [address] Nurse Practitioner Family Medicine 07/26/23 documented as of this encounter
--- OUTSIDE RECORDS SUMMARY | 2024-10-07 17:47 | XMS_ITS | Patient Health Record ---
Author Organization [facility] in [place] Address [address] [place] [address] Care Team Providers Care [employer] Photographs Detailer Name Role Phone Mansoor Mcclain Primary Care Provider [phone] Katerine Chance Unavailable [phone] Allergies Allergen (clinical drug ingredient) Drug/Non Drug Allergy documented on EMR Reaction Allergy Type Onset Date Status prednisone predniSONE Insides Feel Like On Fire Drug Allergy Active Results Component Value Reference Range Notes T4 Reviewed date:09/18/2024 07:21:43 PM Interpretation: Performing Lab: Notes/Report: Comment use am blood [facility] , T4 Thyroxine 6.60 4.80-13.90 ug/dL Performing Lab: see note [facility] LB TSH Reviewed date:09/18/2024 07:21:43 PM Interpretation: Performing Lab: Notes/Report: Comment use am blood [facility] , Thyroid Stimulating Hormone 0.751 0.358-3.740 uIU/mL Performing Lab: see note - [facility] LB Blood Culture 1 Reviewed date:09/23/2024 07:04:33 PM Interpretation: Performing Lab: Notes/Report: PEDS BOTTLE [facility] , Blood Culture 1 See Below For Report Blood Culture 1 NG5D NO GROWTH AT 5 DAYS.^NO GROWTH AT 5 DAYS. Performing Lab: see note [facility] LB Blood Culture 2 Reviewed date:09/23/2024 07:04:33 PM Interpretation: Performing Lab: Notes/Report: PEDS BOTTLE [facility] , Blood Culture 2 See Below For Report NG5D NO GROWTH AT 5 DAYS.^NO GROWTH AT 5 DAYS. Blood Culture 2 Performing Lab: see note - [facility] LB White Blood Cells Reviewed date:09/22/2024 09:17:56 PM Interpretation: Performing Lab: Notes/Report: [facility] , White Blood Cells See Below For Report White Blood Cells White Blood Cells None seen White Blood Cells Performing Lab: see note LC - [facility] LB Epithelial Cells Reviewed date:09/22/2024 09:17:56 PM Interpretation: Performing Lab: Notes/Report: [facility] , Epithelial Cells See Below For Report Epithelial Cells Few Performing Lab: see note LC - [facility] LB Result 1 Reviewed date:09/22/2024 09:17:56 PM Interpretation: Performing Lab: Notes/Report: [facility] , Result 1 See Below For Report Result 1 Many gram positive cocci. Performing Lab: see note LC - [facility] LB Result 2 Reviewed date:09/22/2024 09:17:56 PM Interpretation: Performing Lab: Notes/Report: [facility] , Result 2 See Below For Report Result 2 Few gram negative rods. Performing Lab: see note LC - [facility] LB Result 3 Reviewed date:09/22/2024 09:17:56 PM Interpretation: Performing Lab: Notes/Report: [facility] , Result 3 See Below For Report Result 3 Few gram negative cocci Performing Lab: see note LC - [facility] LB Result 4 Reviewed date:09/22/2024 09:17:56 PM Interpretation: Performing Lab: Notes/Report: [facility] , Result 4 See Below For Report Result 4 [employer] MIXER OPERATOR Performing Lab: see note LC - [facility] LB Gram Stain Evaluation Reviewed date:09/22/2024 09:17:56 PM Interpretation: Performing Lab: Notes/Report: [facility] , Gram Stain Evaluation See Below For Report This specimen is of good quality and is acceptable for routine Gram Stain Evaluation Gram Stain Evaluation bacterial culture. This specimen is of good quality and is acceptable for routine Gram Stain Evaluation Performing Lab: see note LC - [facility] LB Lower Respiratory Culture Reviewed date:09/22/2024 09:17:56 PM Interpretation: Performing Lab: Notes/Report: [facility] , Lower Respiratory Culture See Below For Report Lower Respiratory Culture WILL FOLLOW Lower Respiratory Culture Routine respiratory luke Lower Respiratory Culture WILL FOLLOW Lower Respiratory Culture Performed at: [facility] Lower Respiratory Culture WILL FOLLOW Lower Respiratory Culture [address] [place] [phone] Lower Respiratory Culture WILL FOLLOW Lower Respiratory Culture Button Sewing Machine Operator: Abel Finnegan PhD, Phone: [phone] Lower Respiratory Culture WILL FOLLOW Performing Lab: see note LC - [facility] LB SEE REPORT - Student Id information not found for OBX-specific game producer legend CBC AUTO DIFF Reviewed date:09/21/2024 01:12:51 PM Interpretation: Performing Lab: Notes/Report: [facility] , White Blood Count 17.4 4.0-11.0 10 3/uL Red Blood Count 3.14 4.20-5.40 10 6/uL Hemoglobin 7.6 12.0-16.0 g/dL Hematocrit 24.8 36.0-48.0 % Mean Corpuscular Volume 79.0 81.0-99.0 fL Mean Corpuscular Hemoglobin 24.2 26.7-34.0 pg Mean Corpuscular HGB Conc 30.6 29.9-35.2 g/dL Red Cell Distribution Width 22.6 11.0-15.0 % Platelet Count 891 150-450 10 3/uL Mean Platelet Volume 8.2 9.5-13.5 fL Performing Lab: see note ML - [facility] LB PROF 14(COMP METB) Reviewed date:09/21/2024 01:12:51 PM Interpretation: Performing Lab: Notes/Report: [facility] , Sodium 138 136-145 mmol/L Potassium 3.8 3.5-5.1 mmol/L Chloride 101 98-107 mmol/L Carbon Dioxide 28.2 21.0-32.0 mmol/L Anion Gap 12.6 Glucose 107 74-106 mg/dL Blood Urea Nitrogen 9.0 7.0-18.0 mg/dL Creatinine 0.60 0.55-1.02 mg/dL Estimated GFR ( Fang >60 >=60 mL/min/1.73m 2 Estimated GFR (Non- Lizabeth >60 >=60 mL/min/1.73m 2 BUN Creatinine Ratio 15.0 Calcium 9.0 8.5-10.1 mg/dL Bilirubin Total 0.4 0.2-1.0 mg/dL Aspartate Amino Transferase 14 15-37 U/L Alanine Aminotransferase 8 14-59 U/L Alkaline Phosphatase 255 46-116 U/L Total Protein 7.1 6.4-8.2 g/dL Albumin Level 1.7 3.4-5.0 g/dL Globulin 5.4 Albumin Globulin Ratio 0.3 Performing Lab: see note - [facility] LB Manual Differential Reviewed date:09/21/2024 01:12:51 PM Interpretation: Performing Lab: Notes/Report: [facility] , Segmented Neutrophils % Manual 72.0 43.0-75.0 Lymphocytes Percent Manual 21.0 20.5-60.0 % Monocytes Percent Manual 7.0 1.7-12.0 % Eosinophils Percent Manual 0.0 0.9-7.0 % Basophils Percent Manual 0.0 0.2-2.0 % Segmented Neut Absolute Manual 12.52 1.4-6.5 10 3/uL Lymphocytes Absolute Manual 3.65 1.20-3.80 10 3/uL Monocytes Absolute Manual 1.21 0.30-0.80 10 3/uL Eosinophils Absolute Manual 0.00 0.00-0.70 10 3/uL Basophils Abs Manual 0.00 0.00-0.10 1 0 3/uL Hypochromasia 1+ Anisocytosis 1+ Performing Lab: see note - [facility] LB XR chest 2V Reviewed date:09/21/2024 01:12:51 PM Interpretation: Performing Lab: Notes/Report: Source Facility: [place] [address] XRay Report Signed Patient: RYLEE MERRILL MR#: [id number] : 1975 Acct:[id number] Age/Sex: 49 / F ADM Date: 09/15/24 Loc: [place] 202-[address]: Meenakshi Mcclain M.D. Ordering Physician: Meenakshi Mcclain M.D. Date of Service: 09/19/24 Procedure(s): XR chest 2V Accession Number(s): [id number] cc: Domi Altamirano NP; Meenakshi Mcclain M.D. [place] [address] Patient Name: RYLEE MERRILL MRN: [facility]:[id number] date: 1975 Sex: F Assigned Patient Location: [place] Current Patient Location: [place] Accession/Order Number: [id number] Exam Date: 09/19/2024 09:16 Report Date: 09/19/2024 09:17 At the request of: MEENAKSHI MCCLAIN MD Procedure: XR chest 2V PA AND LATERAL CHEST: CLINICAL HISTORY: follow up bronchitis COMPARISON: 09/17/2024 A left lung nodule is again visualized. There is no developing consolidation, effusion or pneumothorax. The cardiac, hilar and mediastinal silhouettes are within normal limits. There is no vascular congestion. The visualized bony thorax is intact. Subtle levoscoliotic curvature is noted. XR/XR chest 2V IMPRESSION: STABLE LEFT LUNG NODULE. NO ACUTE FINDINGS. Impression dictated by: Iraida Bach M.D. 09/19/2024 9:17 AM Dictation Location: [place] [address] Electronically authenticated by: [id number] Y Date: 09/19/2024 09:17 Dictated By: Iraida Bach M.D. Signed By: 09/19/24919 DD/ 6 TD/TT: Cell Coverer: [place] [address] XRay Report Signed Patient: JABIER MERRILL MR#: [id number] : 1975 Acct:[id number] Age/Sex: 49 / F ADM Date: 09/15/24 Loc: MS 202- Attending Dr: Irlanda Mcclain M.D. Ordering Physician: Meenakshi Mcclain M.D. Date of Service: 09/19/24 Procedure(s): XR chest 2V Accession Number(s): [id number] cc: Domi Altamirano [employer] MIXER OPERATOR ; Meenakshi Mcclain M.D. [address] [address] Patient Name: RYLEE MERRILL MRN: [id number] date: 1975 Sex: F Assigned Patient Loc ation: MS Current Patient Loca tion: MS Accession/Order Numb er: [id number] Exam Date: 09/19/2024 09:16 Report Date: 09/19/2024 09:17 At the request of: MEENAKSHI MCCLAIN MD Procedure: XR chest 2V PA AND LATERAL CHEST: CLINICAL HISTORY: fo llow up bronchitis COMPARISON: 09/17/2024 A left lung nodule i s again visualized. There is no developing consolidation, effusion or pneumoth orax. The cardiac, hilar and mediastinal silhouettes are within normal limits . There is no vascular congestion. The visualized bony thorax is intact. Patrick btle levoscoliotic curvature is noted. X R/XR chest 2V IMPRESSION: STABLE LEFT LUNG NODULE. NO ACUTE FINDINGS. Impression dictated by: Iraida Bach M.D. 09/19/2024 9:17 AM Dictation Location: [place] [address] Electronically authenticated by: [id number] Y Date: 09/19/2024 09:17 Dictated By: Iraida Bach M.D. Signed By: 09/19/24919 DD/ 6 TD/TT: Cell Coverer: CBC AUTO DIFF Reviewed date:09/21/2024 01:12:51 PM Interpretation: Performing Lab: Notes/Report: [facility] , White Blood Count 21.8 4.0-11.0 10 3/uL Red Blood Count 2.69 4.20-5.40 10 6/uL Hemoglobin 6.7 12.0-16.0 g/dL RESULTS CALLED TO Gayle Saxena RN @BY Gurmeet Rocha MLT at 0656 Hematocrit 21.9 36.0-48.0 % RESULTS CALLED TO Gayle Saxena RN @BY Gurmeet Rocha MLT at 0656 Mean Corpuscular Volume 81.4 81.0-99.0 fL Mean Corpuscular Hemoglobin 24.9 26.7-34.0 pg Mean Corpuscular HGB Conc 30.6 29.9-35.2 g/dL Red Cell Distribution Width 22.8 11.0-15.0 % Platelet Count 853 150-450 10 3/uL Mean Platelet Volume 8.5 9.5-13.5 fL Performing Lab: see note ML - [facility] LB PROF 14(COMP METB) Reviewed date:09/21/2024 01:12:51 PM Interpretation: Performing Lab: Notes/Report: [facility] , Sodium 141 136-145 mmol/L Potassium 3.9 3.5-5.1 mmol/L Chloride 103 98-107 mmol/L Carbon Dioxide 26.9 21.0-32.0 mmol/L Anion Gap 15.0 Glucose 240 74-106 mg/dL Blood Urea Nitrogen 13.0 7.0-18.0 mg/dL Creatinine 0.59 0.55-1.02 mg/dL Estimated GFR ( Fang >60 >=60 mL/min/1.73m 2 Estimated GFR (Non- Lizabeth >60 >=60 mL/min/1.73m 2 BUN Creatinine Ratio 22.0 Calcium 9.4 8.5-10.1 mg/dL Bilirubin Total 0.2 0.2-1.0 mg/dL Aspartate Amino Transferase 37 15-37 U/L Alanine Aminotransferase 27 14-59 U/L Alkaline Phosphatase 295 46-116 U/L Total Protein 7.0 6.4-8.2 g/dL Albumin Level 1.6 3.4-5.0 g/dL Globulin 5.4 Albumin Globulin Ratio 0.3 Performing Lab: see note ML - [facility] LB Manual Differential Reviewed date:09/21/2024 01:12:51 PM Interpretation: Performing Lab: Notes/Report: [facility] , Segmented Neutrophils % Manual 81.0 43.0-75.0 Band Neutrophils % 4.0 0-5 % Lymphocytes Percent Manual 10.0 20.5-60.0 % Monocytes Percent Manual 5.0 1.7-12.0 % Eosinophils Percent Manual 0.0 0.9-7.0 % Basophils Percent Manual 0.0 0.2-2.0 % Segmented Neut Absolute Manual 17.65 1.4-6.5 10 3/uL Band Neutrophils Absolute 0.9 0.0-0.3 10 3/uL Lymphocytes Absolute Manual 2.18 1.20-3.80 10 3/uL Monocytes Absolute Manual 1.09 0.30-0.80 10 3/uL Eosinophils Absolute Manual 0.00 0.00-0.70 10 3/uL Basophils Abs Manual 0.00 0.00-0.10 1 0 3/uL Hypochromasia 1+ Anisocytosis 1+ Performing Lab: see note ML - [facility] LB Packed Red Blood Cells Reviewed date:09/21/2024 01:12:51 PM Interpretation: Performing Lab: Notes/Report: Packed Red Blood Cells [id number] OP RC TRANSFUSED 09/20/24 1239 [id number] OP RC TRANSFUSED 09/20/24 1558 Type and Screen Reviewed date:09/21/2024 01:12:51 PM Interpretation: Performing Lab: Notes/Report: [facility] , Blood Type O Positive Antibody Screen NEGATIVE CBC AUTO DIFF Reviewed date:09/21/2024 01:12:51 PM Interpretation: Performing Lab: Notes/Report: [facility] , White Blood Count 24.0 4.0-11.0 10 3/uL Red Blood Count 3.53 4.20-5.40 10 6/uL Hemoglobin 8.9 12.0-16.0 g/dL Hematocrit 28.4 36.0-48.0 % Mean Corpuscular Volume 80.5 81.0-99.0 fL Mean Corpuscular Hemoglobin 25.2 26.7-34.0 pg Mean Corpuscular HGB Conc 31.3 29.9-35.2 g/dL Red Cell Distribution Width 21.6 11.0-15.0 % Platelet Count 828 150-450 10 3/uL Mean Platelet Volume 8.6 9.5-13.5 fL Neutrophils Percent Auto 84.2 43.0-75.0 % Lymphocytes Percent Auto 7.9 20.5-60.0 % Monocytes Percent Auto 7.1 1.7-12.0 % Eosinophils Percent Auto 0.0 0.9-7.0 % Basophils Percent Auto 0.1 0.2-2.0 % Immature Granulocytes Pct Auto 0.7 0.0-0.5 % Neutrophils Absolute Auto 20.2 1.4-6.5 10 3/uL Lymphocytes Absolute Auto 1.9 1.2-3.8 10 3/uL Monocytes Absolute Auto 1.7 0.3-0.8 10 3/uL Eosinophils Absolute Auto 0.0 0.0-0.7 10 3/uL Basophils Absolute Auto 0.0 0.0-0.1 10 3/uL Immature Granulocytes Abs Auto 0.17 0.00-0.03 10 3/uL Performing Lab: see note ML - [facility] LB AMYLASE Reviewed date:09/21/2024 01:12:51 PM Interpretation: Performing Lab: Notes/Report: Comment use am blood for amylase lipase? [facility] , Amylase 15 25-115 U/L Performing Lab: see note - [facility] LB CBC AUTO DIFF Reviewed date:09/21/2024 01:12:51 PM Interpretation: Performing Lab: Notes/Report: [facility] , White Blood Count 22.7 4.0-11.0 10 3/uL Red Blood Count 3.66 4.20-5.40 10 6/uL Hemoglobin 9.3 12.0-16.0 g/dL Hematocrit 29.5 36.0-48.0 % Mean Corpuscular Volume 80.6 81.0-99.0 fL Mean Corpuscular Hemoglobin 25.4 26.7-34.0 pg Mean Corpuscular HGB Conc 31.5 29.9-35.2 g/dL Red Cell Distribution Width 21.8 11.0-15.0 % Platelet Count 887 150-450 10 3/uL Mean Platelet Volume 8.6 9.5-13.5 fL Neutrophils Percent Auto 76.7 43.0-75.0 % Lymphocytes Percent Auto 10.6 20.5-60.0 % Monocytes Percent Auto 11.5 1.7-12.0 % Eosinophils Percent Auto 0.0 0.9-7.0 % Basophils Percent Auto 0.1 0.2-2.0 % Immature Granulocytes Pct Auto 1.1 0.0-0.5 % Neutrophils Absolute Auto 17.4 1.4-6.5 10 3/uL Lymphocytes Absolute Auto 2.4 1.2-3.8 10 3/uL Monocytes Absolute Auto 2.6 0.3-0.8 10 3/uL Eosinophils Absolute Auto 0.0 0.0-0.7 10 3/uL Basophils Absolute Auto 0.0 0.0-0.1 10 3/uL Immature Granulocytes Abs Auto 0.24 0.00-0.03 10 3/uL Performing Lab: see note - [facility] LB LIPASE Reviewed date:09/21/2024 01:12:51 PM Interpretation: Performing Lab: Notes/Report: Comment use am blood for amylase lipase? [facility] , Lipase 22.0 16.0-77.0 U/L Performing Lab: see note ML - [facility] LB PROF 14(COMP METB) Reviewed date:09/21/2024 01:12:51 PM Interpretation: Performing Lab: Notes/Report: [facility] , Sodium 140 136-145 mmol/L Potassium 4.7 3.5-5.1 mmol/L Chloride 102 98-107 mmol/L Carbon Dioxide 29.0 21.0-32.0 mmol/L Anion Gap 13.7 Glucose 149 74-106 mg/dL Blood Urea Nitrogen 13.0 7.0-18.0 mg/dL Creatinine 0.38 0.55-1.02 mg/dL Estimated GFR ( Fang >60 >=60 mL/min/1.73m 2 Estimated GFR (Non- Lizabeth >60 >=60 mL/min/1.73m 2 BUN Creatinine Ratio 34.2 Calcium 9.8 8.5-10.1 mg/dL Bilirubin Total 0.6 0.2-1.0 mg/dL Aspartate Amino Transferase 194 15-37 U/L Alanine Aminotransferase 210 14-59 U/L Alkaline Phosphatase 620 46-116 U/L Total Protein 7.4 6.4-8.2 g/dL Albumin Level 1.6 3.4-5.0 g/dL Globulin 5.8 Albumin Globulin Ratio 0.3 Performing Lab: see note - [facility] LB CT abdomen pelvis w con Reviewed date:09/21/2024 01:12:51 PM Interpretation: Performing Lab: Notes/Report: Source Facility: [facility]-[address] [place] [address] CT Scan Report Signed Patient: RYLEE MERRILL MR#: [id number] : 1975 Acct:[id number] Age/Sex: 49 / F ADM Date: 09/15/24 Loc: [place] 202-[address]: Meenakshi Mcclain M.D. Ordering Physician: Meenakshi Mcclain M.D. Date of Service: 09/21/24 Procedure(s): CT abdomen pelvis w con Accession Number(s): [id number] cc: Domi Altamirano [employer] MIXER OPERATOR [place] [address] Patient Name: RYELE MERRILL MRN: [id number] date: 1975 Sex: F Assigned Patient Location: [place] Current Patient Location: [place] Accession/Order Number: [id number] Exam Date: 09/21/2024 10:41 Report Date: 09/21/2024 10:48 At the request of: MEENAKSHI MCCLAIN MD Procedure: CT abdomen pelvis w con CT ABDOMEN AND PELVIS WITH INTRAVENOUS CONTRAST: CLINICAL HISTORY: elevated lft COMPARISON: 09/17/2019 TECHNIQUE: Spiral images were obtained through the abdomen and pelvis following the administration of intravenous contrast. This CT exam was performed using one or more following dose reduction techniques: Automated exposure control, adjustment of the mA and/or kV according to patient size, or use of iterative reconstruction technique. FINDINGS: Lung Bases: [Small effusions. Parenchymal opacity likely atelectasis or scarring greatest left. Moderate size hiatal hernia. Trace pericardial effusion.] Organs:Gallbladder absent. Slight heterogeneous parenchymal enhancement of the liver. Liver is enlarged 21 cm. multifocal subcentimeter hypoattenuation of attenuation of the spleen. No splenomegaly. Adrenals, kidneys, and pancreas are unremarkable.[ GI: Mild to moderate retained stool. No bowel obstruction[ Pelvis: Bladder collapsed. uterus unremarkable. No adnexal mass.] Peritoneum/Retroperitoneum:No free air. Trace free pelvic fluid. Evidence of lymphadenopathy identified rachid hepatic region and periaortic region. This measures up to 2.2 x 3.7 cm in size And 1.4 x 2.9 cm in size. Periaortic Adenopathy 1.5 x 2.3 cm in size.[ Abd wall/Bones:L1 compression fracture likely chronic[ CT/CT abdomen pelvis w con IMPRESSION: Continued adenopathy this may raise possibility of underlying lymphoproliferative process. Hepatomegaly with slight heterogeneous enhancement noted Multifocal subcentimeter areas of hypoattenuation involving the spleen. Moderate size hiatal hernia. Impression dictated by: Bonilla Higuera M.D. 09/21/2024 10:48 AM Dictation Location: [place] [address] Electronically authenticated by: [id number] Y Date: 09/21/2024 10:48 Dictated By: Bonilla Higuera M.D. Signed By: 09/21/24 1051 DD/ 1048 TD/TT: Cell Coverer: The [address] [address] [address] Scan Report Signed Patient: JABIER MERRILL MR#: [id number] : 1975 Acct:[id number] Age/Sex: 49 / F ADM Date: 09/15/24 Loc: [place] 202-[address]: Irlanda Mcclain M.D. Ordering Physician: Meenakshi Mcclain M.D. Date of Service: 09/21/24 Procedure(s): CT abd omen pelvis w con Accession Number(s): [id number] cc: Domi Altamirano NP [address] [address] Patient Name: RYLEE MERRILL MRN: [id number] date: 1975 Sex: F Assigned Patient Loc ation: MS Current Patient Loca tion: MS Accession/Order Numb er: [id number] Exam Date: 09/21/2024 10:41 Report Date: 09/21/2024 10:48 At the request of: MEENAKSHI MCCLAIN MD Procedure: CT abdome n pelvis w con CT ABDOMEN AND PELVI S WITH INTRAVENOUS CONTRAST: CLINICAL HISTORY: el evated lft COMPARISON: 09/17/2019 TECHNIQUE: Spiral im ages were obtained through the abdomen and pelvis following the administration of intravenous contrast. This CT exam was performed using one or more following dose reduction techniques: Automated exposure control, adjustment of the mA and/or kV according to patient size, or use of iterative reconstruction technique. FINDINGS: Lung Bases: [Small effusions. Parenchymal opacity likely atelectasis or scarring greatest le ft. Moderate size hiatal hernia. Trace pericardial effusion.] Organs:Gallbladder a bsent. Slight heterogeneous parenchymal enhancement of the liver. Liver is enlarged 21 cm. multifocal subcentimeter hypoattenuation of attenuation of th e spleen. No splenomegaly. Adrenals, kidneys, and pancreas are unremarkable.[ GI: Mild to moderate retained stool. No bowel obstruction[ Pelvis: Bladder marin apsed. uterus unremarkable. No adnexal mass.] Peritoneum/Retroperi toneum: No free air. Trace free pelvic fluid. Evidence of lymphadenopathy iden tified rachid hepatic region and periaortic region. This measures up to 2.2 x 3.7 cm in size And 1.4 x 2.9 cm in size. Periaortic Adenopathy 1.5 x 2.3 cm in size.[ Abd wall/Bones:L1 compression fracture likely chronic[ C T/CT abdomen pelvis w con IMPRESSION: Continued adenopathy this may raise possibility of underlying lymphoproliferative process. Hepatomegaly with sl ight heterogeneous enhancement noted Multifocal subcentim eter areas of hypoattenuation involving the spleen. Moderate size hiatal hernia. Impression dictated by: Bonilla Higuera M.D. 09/21/2024 10:48 AM Dictation Location: [place] [address] Electronically authenticated by: [id number] Y Date: 09/21/2024 10:48 Dictated By: Karina Higuera M.D. Signed By: 09/21/24 1051 DD/ 1048 TD/TT: Cell Coverer: PROF Pope(COMP METB) Reviewed date:09/21/2024 01:12:51 PM Interpretation: Performing Lab: Notes/Report: [facility] , Sodium 140 136-145 mmol/L Potassium 5.1 3.5-5.1 mmol/L Chloride 101 98-107 mmol/L Carbon Dioxide 31.1 21.0-32.0 mmol/L Anion Gap 13.0 Glucose 115 74-106 mg/dL Blood Urea Nitrogen 12.0 7.0-18.0 mg/dL Creatinine 0.46 0.55-1.02 mg/dL Estimated GFR ( Fang >60 >=60 mL/min/1.73m 2 Estimated GFR (Non- Lizabeth >60 >=60 mL/min/1.73m 2 BUN Creatinine Ratio 26.1 Calcium 9.9 8.5-10.1 mg/dL Bilirubin Total 0.5 0.2-1.0 mg/dL Aspartate Amino Transferase 147 15-37 U/L Alanine Aminotransferase 197 14-59 U/L Alkaline Phosphatase 624 46-116 U/L Total Protein 7.5 6.4-8.2 g/dL Albumin Level 1.7 3.4-5.0 g/dL Globulin 5.8 Albumin Globulin Ratio 0.3 Performing Lab: see note ML - [facility] LB PROF 14(COMP METB) Reviewed date:09/24/2024 07:13:51 PM Interpretation: Performing Lab: Notes/Report: [facility] , Sodium 137 136-145 mmol/L Potassium 4.6 3.5-5.1 mmol/L Chloride 98 98-107 mmol/L Carbon Dioxide 27.8 21.0-32.0 mmol/L Anion Gap 15.8 Glucose 114 74-106 mg/dL Blood Urea Nitrogen 11.0 7.0-18.0 mg/dL Creatinine 0.72 0.55-1.02 mg/dL Estimated GFR ( Fang >60 >=60 mL/min/1.73m 2 Estimated GFR (Non- Lizabeth >60 >=60 mL/min/1.73m 2 BUN Creatinine Ratio 15.3 Calcium 9.7 8.5-10.1 mg/dL Bilirubin Total 0.7 0.2-1.0 mg/dL Aspartate Amino Transferase 19 15-37 U/L Alanine Aminotransferase 71 14-59 U/L Alkaline Phosphatase 476 46-116 U/L Total Protein 8.1 6.4-8.2 g/dL Albumin Level 1.8 3.4-5.0 g/dL Globulin 6.3 Albumin Globulin Ratio 0.3 Performing Lab: see note [facility] LB Manual Differential Reviewed date:09/24/2024 07:13:51 PM Interpretation: Performing Lab: Notes/Report: [facility] , Segmented Neutrophils % Manual 61.0 43.0-75.0 Lymphocytes Percent Manual 28.0 20.5-60.0 % Monocytes Percent Manual 10.0 1.7-12.0 % Eosinophils Percent Manual 1.0 0.9-7.0 % Basophils Percent Manual 0.0 0.2-2.0 % Segmented Neut Absolute Manual 12.13 1.4-6.5 10 3/uL Lymphocytes Absolute Manual 5.57 1.20-3.80 10 3/uL Monocytes Absolute Manual 1.99 0.30-0.80 10 3/uL Eosinophils Absolute Manual 0.19 0.00-0.70 10 3/uL Basophils Abs Manual 0.00 0.00-0.10 1 0 3/uL Anisocytosis 2+ Performing Lab: see note - [facility] LB CBC AUTO DIFF (Not yet revie wed by provider) Interpretation: Performing Lab: Notes/Report: [facility] , White Blood Count 25.4 4.0-11.0 10 3/uL Red Blood Count 3.57 4.20-5.40 10 6/uL Hemoglobin 9.0 12.0-16.0 g/dL Hematocrit 29.2 36.0-48.0 % Mean Corpuscular Volume 81.8 81.0-99.0 fL Mean Corpuscular Hemoglobin 25.2 26.7-34.0 pg Mean Corpuscular HGB Conc 30.8 29.9-35.2 g/dL Red Cell Distribution Width 22.0 11.0-15.0 % Platelet Count 1006 150-450 10 3/uL RESULTS CA LLED TO LUIGI SYKES RN at 0930 Mean Platelet Volume 8.5 9.5-13.5 fL Performing Lab: see note ML - [facility] LB Erythrocyte Sedimentation Ra te (Not yet reviewed by provider) Interpretation: Performing Lab: Notes/Report: [facility] , Erythrocyte Sedimentation Rate >130 <=20 mm/hr Performing Lab: see note ML - [facility] LB Manual Differential (Not yet reviewed by provider) Interpretation: Performing Lab: Notes/Report: [facility] , Segmented Neutrophils % Manual 70.0 43.0-75.0 Lymphocytes Percent Manual 17.0 20.5-60.0 % Monocytes Percent Manual 13.0 1.7-12.0 % Eosinophils Percent Manual 0.0 0.9-7.0 % Basophils Percent Manual 0.0 0.2-2.0 % Segmented Neut Absolute Manual 17.78 1.4-6.5 10 3/uL Lymphocytes Absolute Manual 4.31 1.20-3.80 10 3/uL Monocytes Absolute Manual 3.30 0.30-0.80 10 3/uL Eosinophils Absolute Manual 0.00 0.00-0.70 10 3/uL Basophils Abs Manual 0.00 0.00-0.10 1 0 3/uL Anisocytosis 2+ Performing Lab: see note ML - [facility] LB Reticulocyte Pct Auto (Not y et reviewed by provider) Interpretation: Performing Lab: Notes/Report: [facility] , Reticulocyte Pct Auto 1.34 0.60-3.10 % Performing Lab: see note ML - [facility] LB B pertussis IgG/M/A Ab Reviewed date:09/23/2024 07:04:33 PM Interpretation: Performing Lab: Notes/Report: [facility] , B pertussis IgG Ab 2.04 0.00-0.94 index Positive >1.04 Equivocal 0.95 - 1.04 Negative <0.95 B pertussis IgM Ab 1.2 0.0-0.9 index Borderline 1.0 - 1.1 Positive >1.1 Negative <1.0 B pertussis IgA Ab 1.1 0.0-0.9 index Negative <1.0 Button Sewing Machine Operator: Opal Gibbs MD, Phone: [phone] Positive >1.1 Performed at: [facility] Borderline 1.0 - 1.[address] [place] [phone] Performing Lab: see note - [facility] LB PROF 14(COMP METB) Reviewed date:09/18/2024 07:21:43 PM Interpretation: Performing Lab: Notes/Report: [facility] , Sodium 138 136-145 mmol/L Potassium 3.6 3.5-5.1 mmol/L Chloride 101 98-107 mmol/L Carbon Dioxide 26.8 21.0-32.0 mmol/L Anion Gap 13.8 Glucose 136 74-106 mg/dL Blood Urea Nitrogen 11.0 7.0-18.0 mg/dL Creatinine 0.57 0.55-1.02 mg/dL Estimated GFR ( Fang >60 >=60 mL/min/1.73m 2 Estimated GFR (Non- Lizabeth >60 >=60 mL/min/1.73m 2 BUN Creatinine Ratio 19.3 Calcium 8.7 8.5-10.1 mg/dL Bilirubin Total 0.3 0.2-1.0 mg/dL Aspartate Amino Transferase 14 15-37 U/L Alanine Aminotransferase 8 14-59 U/L Alkaline Phosphatase 229 46-116 U/L Total Protein 6.9 6.4-8.2 g/dL Albumin Level 1.6 3.4-5.0 g/dL Globulin 5.3 Albumin Globulin Ratio 0.3 Performing Lab: see note [facility] LB LACTATE or LACTIC ACID Reviewed date:09/18/2024 07:21:43 PM Interpretation: Performing Lab: Notes/Report: [facility] , Lactate/Lactic Acid 1.2 0.4-2.0 mmol/L Performing Lab: see note ML - [facility] LB CBC AUTO DIFF Reviewed date:09/24/2024 07:13:51 PM Interpretation: Performing Lab: Notes/Report: [facility] , White Blood Count 19.9 4.0-11.0 10 3/uL Red Blood Count 4.34 4.20-5.40 10 6/uL Hemoglobin 10.8 12.0-16.0 g/dL Hematocrit 35.2 36.0-48.0 % Mean Corpuscular Volume 81.1 81.0-99.0 fL Mean Corpuscular Hemoglobin 24.9 26.7-34.0 pg Mean Corpuscular HGB Conc 30.7 29.9-35.2 g/dL Red Cell Distribution Width 23.3 11.0-15.0 % Platelet Count 981 150-450 10 3/uL Mean Platelet Volume 8.6 9.5-13.5 fL Performing Lab: see note ML - [facility] LB Reason For Referral No Information Medications Medication SIG (Take, Route, Frequency, Duration) Notes Start Date End Date Status Ondansetron 4 MG 1 tablet on the tong ue and allow to dissolve Orally qid 10/01/2024 Active traMADol HCl 50 MG 1 tablet as needed Orally qid for 7 days As needed 10/03/2024 Active Albuterol Sulfate HFA 108 (90 Base) MCG/ACT INHALE 2 PUFFS EVERY 6 HOURS IF NEEDED FOR WHEEZING OR SHORTNESS OF BREATH. Inhalation for 90 Days Active Stiolto Respimat 2.5-2.5 MCG/ACT 2 puffs Inhalation Once a day for 30 days 10/01/2024 Active Indomethacin 50 MG 1 capsule with food or milk Orally Twice a day for 10 days 10/03/2024 Active Omeprazole 40 MG 1 tablet Oral Twice Daily for 90 days Active Metoprolol Tartrate 50 MG 1 tablet with food Orally Twice a day for 90 days Active Losartan Potassium 50 MG 1 tablet Orally Once a day for 90 days Active Gabapentin 600 MG TAKE 1 TABLET BY JULIENNE TH EVERY 8 HOURS Oral for 30 Days Active Atorvastatin Calcium 20 MG TAKE 1 TABLET BY MOUTH AT BEDTIME Oral for 90 Days Active Social History Tobacco Use: Social History [...] Status W/U Status Risk Notes Problem Hypertension (78230274) Hypertension (I10) Active confirmed Problem Asthma (696514965) Asthma (J45.909) Active conf irmed Problem COPD - Chronic obstructive pulmonary disease (43960902) COPD (chronic obstructive pulmonary disease) (J44.9) Active confirmed Problem Anemia (302969212) Anemia (D64.9) Active confir med Problem Thrombocythemia (8512920) Thrombocythemia (D47.3) Active confirmed Problem Pertussis (25735045) Pertussis (A37.90) Active confirmed Problem hypercholesterolemia (disorder) (52383036) Hypercholesteremia (E78.00) Active confirmed Problem Anemia (376291397) Acute anemia (D64.9) Active confirmed Vital Signs Blood pressure diastolic 82 mm Hg 10/01/2024 Height 66 in 10/01/2024 Blood pressure systolic 122 mm Hg 10/01/2024 Weight 108 lbs 10/01/2024 BMI 17.43 kg/m2 10/01/2024 Encounters Encounter Location Date Provider Diagnosis [facility] [address] [place] [address] 10/01/2024 Mansoor Mcclain COPD (chronic obstructive pulmonary disease) J44.9 ; Anemia D64.9 and Thrombocythemia D47.3 [facility] Oncology [address] [place] [address] 09/30/2024 Katerine Chance [facility] [address] [place] [address] 09/21/2024 Mansoor Mcclain [facility] [address] [place] [address] 09/23/2024 Mansoor Mcclain [facility] [address] [place] [address] 09/23/2024 Mansoor Mcclain Pertussis A37.90 [facility] [address] [place] [address] 09/23/2024 Mansoor Mcclain [facility] [address] [place] [address] 09/24/2024 Mansoor Mcclain Acute anemia D64.9 [facility] [address] [place] [address] 10/03/2024 Mansoor Mcclain COPD (chronic obstructive pulmonary disease) J44.9 Assessments Encounter Date Diagnosis (ICD Code) Assessment Notes Treatment Notes Treatment Clinical Notes Section Notes 10/01/2024 COPD (chronic obstructive pulmonary disease) (ICD-10 - J44.9) 10/01/2024 Anemia (ICD-10 - D64.9) 09/23/2024 Pertussis (ICD-10 - A37.90) 09/24/2024 Acute anemia (ICD-10 - D64.9) 10/03/2024 COPD (chronic obstructive pulmonary disease) (ICD-10 - J44.9) 10/01/2024 Thrombocythemia (ICD-10 - D47.3) Plan Of Treatment Pending Test Test Name Order Date CMP - Comprehensive Metabolic Panel 03/2024 CBC W/AUTO DIFF 09/23/2024 CBC AUTO DIFF 09/24/2024 CBC AUTO DIFF 09/30/2024 PROF 14(COMP METB) 09/24/2024 Erythrocyte Sedimentation Rate Manual Differential 09/30/2024 Reticulocyte Pct Auto 09/30/2024 Next Appt Details Provider Name:Mansoor Mcclain, 01:00:00 PM, [address] [place], [address], Provider Name:Katerine Chance , 10/28/2024 01:30:00 PM, [address] [place], [address], Insurance Providers Payer Name Payer Address Payer Phone Subscriber Number Group Number Insured Name Patient Relationship to Insured Coverage Start Date Coverage End Date [employer] [address] [address] [place] [address] [id number] Rylee Merrill Self - patient is the insured Medications Administered Medication Instructions Date of Administration Dosage Notes Ketorolac Tromethamine 10/01/2024 60 mg Orphenadrine Citrate 10/01/2024 60 mg Medical (General) History Medical History History ICD Code Hypertension I10 Asthma J45.909 COPD (chronic obstructive pulmonary dise ase) J44.9 Anemia D64.9 Hypercholesteremia E78.00 Surgical History Surgery Date(Month/Year) Exploratory Appendectomy Gall Bladder Removal Tubal Clavical Hospitalization History Reason Date(Month/Year) Anemia, Weakness 08/2024
--- OUTSIDE RECORDS SUMMARY | 2024-10-07 17:47 | XMS_ITS | Encounter Summary ---
Demographics Address [address] [place] [address] Mobile Phone Email Address Preferred Language en Marital Status Unmarried Tenriism Affiliation Unknown Race White Ethnic Group Not or Lati no Author Organization [facility] Address [address] [place] [address] Care Team Providers Care Kiln Furniture Caster Name Role Phone Domi Altamirano NP Unavailable [phone] Hiren Horton MD Primary Care Provider [phone] Domi Altamirano NP Unavailable [phone] Domi Altamirano NP Unavailable [phone] Encounter Details Date Type Department Care Team (Late st Contact Info) Description 09/25/2023 Clinisync Result Encounter [facility] External Department Unsolicited Domi Altamirano NP [address] [place] [address] Social History Tobacco Use Types Packs/Day [...] 10/21/2024 8:40 AM EDT [facility] [address] [place] [address] Domi Altamirano NP [address] [place] [address] documented as of this encounter Procedures Procedure Name Priority Date/Time Associated Diagnosis Comments MM TOMOSYNTHESIS SCREENING BI 09/25/2023 3:19 PM EDT documented in this encounter Results * MM TOMOSYNTHESIS SCREENING BI (09/25/2023 3:19 PM EDT) Anatomical Region Laterality Modality Other 09/25/2023 3:19 PM EDT Narrative 09/25/2023 3:20 [place] [address] Mammography Report Signed Patient: JAIME MERRILL MR#: [id number] : 1975 Acct:[id number] Age/Sex: 48 / F ADM Date: 09/24/23 Loc: MAMMO Attending Dr: Domi Altamirano NP Ordering Physician: Domi Altamirano NP Results: Date of Service: 09/24/23 Follow Up: Procedure(s): MM tomosynthesis screening BI Accession Number(s): [id number] cc: Domi Altamirano NP Patient Name: JAIME MERRILL MR#: [id number] : 1975 Exam Date: 09/24/2023 Ordering Doctor: [...] lymphoma cancer at age 63. LOCATION: [facility] BREAST COMPOSITION: The breasts are heterogeneously [...] Signed By: 09/25/23 1520 DD/ 1519 TD/TT: Senior Tax Analyst: Procedure Note Radiology, Radiologist, MD - 09/25/2023 [place] [address] Mammography Report Signed Patient: JAIME MERRILL KMR#: [id number] : 1975Acct:[id number] Age/Sex: 48 / FADM Date: 09/24/23 Loc: MAMMO Attending Dr: Domi Altamirano NP Ordering Physician: Domi Altamirano NPResults: Date of Service: 09/24/23Follow Up: Procedure(s): MM tomosynthesis screening BI Accession Number(s): [id number] cc: Domi Altamirano NP Patient Name: JAIME MERRILL MR#: [id number] : 1975 Exam Date: 09/24/2023 Ordering Doctor: [...] lymphoma cancer at age 63. LOCATION: [facility] BREAST COMPOSITION: The breasts are heterogeneously [...] M.D. Signed By:09/25/23 1520 DD/ 1519 TD/TT: Senior Tax Analyst: Domi Altamirano NP [facility] Final Result documented in this encounter Visit Diagnoses Not on filedocumented in this encounter Care Teams Kiln Furniture Caster Relationship Specialty Start Date End Date Hiren Horton MD [address] [place] [address] PCP - General Family Medicine 07/26/23 Domi Altamirano NP [address] [place] [address] PCP - [facility] 08/24/24 Domi Altamirano NP [address] [place] [address] Nurse Practitioner Family Medicine 03/26/22 Domi Altamirano NP [address] [place] [address] Nurse Practitioner Family Medicine 07/26/23 documented as of this encounter
--- OUTSIDE RECORDS SUMMARY | 2024-10-07 17:47 | XMS_ITS | Encounter Summary ---
Demographics Address [address] [place] [address] Mobile Phone Email Address Preferred Language en Marital Status Unmarried Judaism Affiliation Unknown Race White Ethnic Group Not or Lati no Author Organization [facility] Address [address] [place] [address] Care Team Providers Care Rn Internship Name Role Phone Domi Altamirano NP Unavailable [phone] Hiren Horton MD Primary Care Provider [phone] Domi Altamirano INTELLIGENCE ENGINEER Unavailable [phone] Domi Altamirano NP Unavailable [phone] Encounter Details Date Type Department Care Team (Late st Contact Info) Description 09/18/2024 Abstract [facility] [address] [place] [address] Domi Altamirano NP [address] [place] [address] Social History Tobacco Use Types Packs/Day Years [...] declined 10/08/2023 How often do you attend voodoo or nondenominational serv ices? Never 10/08/2023 Do you belong to any clubs o r organizations such as voodoo groups, unions, fraternal or athletic groups, or [...] time in the past 12 m [facility], were you homeless or living in a correction (including now)? Yes 10/08/2023 Comments Unknown Sex [...] Visit [facility] [address] [place] [address] Domi Altamirano NP [address] [place] [address] documented as of this encounter Visit Diagnoses Not on filedocumented in this encounter Care Teams Rn Internship Relationship Specialty Start Date End Date Hiren Horton MD [address] [place] [address] PCP - General Family Medicine 07/26/23 Domi Altamirano NP [address] [place] [address] PCP - [place] [employer] 08/24/24 Domi Altamirano NP [address] [place] [address] Nurse Practitioner Family Medicine 03/26/22 Domi Altamirano NP [address] [place] [address] Nurse Practitioner Family Medicine 07/26/23 documented as of this encounter
--- OUTSIDE RECORDS SUMMARY | 2024-10-07 17:47 | XMS_ITS | Encounter Summary ---
Demographics Address [address] [place] [address] Mobile Phone Email Address Preferred Language en Marital Status Unmarried Presybeterian Affiliation Unknown Race White Ethnic Group Not or Lati no Author Organization [facility] Address [address] [place] [address] Care Team Providers Care District Wildlife Manager Name Role Phone Domi Altamirano NP Unavailable [phone] Hiren Horton MD Primary Care Provider [phone] Domi Altamirano MEDICAL RECORDS TECHNICIAN Unavailable [phone] Domi Altamirano NP Unavailable [phone] Encounter Details Date Type Department Care Team (Late st Contact Info) Description 09/17/2024 Abstract [facility] [address] [place] [address] Domi Altamirano NP [address] [place] [address] Social History Tobacco Use Types Packs/Day Years [...] declined 10/08/2023 How often do you attend sikhism or scientology serv ices? Never 10/08/2023 Do you belong to any clubs o r organizations such as sikhism groups, unions, fraternal or athletic groups, or [...] time in the past 12 m [facility], were you homeless or living in a [facility] (including now)? Yes 10/08/2023 Comments Unknown Sex [...] Visit [facility] [address] [place] [address] Domi Altamirano NP [address] [place] [address] documented as of this encounter Visit Diagnoses Not on filedocumented in this encounter Care Teams District Wildlife Manager Relationship Specialty Start Date End Date Hiren Horton MD [address] [place] [address] PCP - General Family Medicine 07/26/23 Domi Altamirano NP [address] [place] [address] PCP - [place] [employer] 08/24/24 Domi Altamirano NP [address] [place] [address] Nurse Practitioner Family Medicine 03/26/22 Domi Altamirano NP [address] [place] [address] Nurse Practitioner Family Medicine 07/26/23 documented as of this encounter
--- OUTSIDE RECORDS SUMMARY | 2024-10-07 17:47 | XMS_ITS | Encounter Summary ---
Demographics Address [address] [place] [address] Mobile Phone Email Address Preferred Language en Marital Status Unmarried Nondenominational Affiliation Unknown Race White Ethnic Group Not or Lati no Author Organization [facility] Address [address] [place] [address] Care Team Providers Care Licensed Final Expense Agents Name Role Phone Domi Altamirano DIRECTOR OF VOCATIONAL TRAINING Unavailable [phone] Hiren Horton MD Primary Care Provider [phone] Domi Altamirano DIRECTOR OF VOCATIONAL TRAINING Unavailable [phone] Domi Altamirano NP Unavailable [phone] Encounter Details Date Type Department Care [...] declined 10/08/2023 How often do you attend methodist or yazidism serv ices? Never 10/08/2023 Do you belong to any clubs o r organizations such as methodist groups, unions, fraternal or athletic groups, or [...] medical care, and heating? Very hard 10/08/2023 [facility] - Occupational Stress [...] any time in the past [address] [facility], were you homeless or living in a [facility] (including now)? Yes 10/08/2023 Comments Unknown Sex [...] Visit [facility] [address] [place] [address] Domi Altamirano NP [address] [place] [address] documented as of this encounter Procedures Procedure Name Priority Date/Time Associated Diagnosis Comments US PELVIS TRANSVAGINAL 10/09/2023 7:06 AM EDT documented in this encounter Results * US PELVIS TRANSVAGINAL (10/09/2023 7:06 AM EDT) Anatomical Region Laterality Modality Other 10/09/2023 7:06 AM EDT Narrative 10/09/2023 7:09 [place] [address] Ultrasound Report Signed Patient: JAIME MERRILL MR#: [id number] : 1975 Acct:[id number] Age/Sex: 48 / F ADM Date: 10/08/23 Loc: US Attending Dr: Domi Howard NP Ordering Physician: Domi Howard NP Date of Service: 10/08/23 Procedure(s): US pelvis transvaginal Accession Number(s): [id number] cc: Domi Altamirano DIRECTOR OF VOCATIONAL TRAINING; Domi Howard NP [address] [address] Patient Name: JAIME MERRILL MRN: [facility]:[id number] date: 1975 Sex: F Assigned Patient Location: US Current Patient Location: Accession/Order Number: [id number] Exam Date: 10/08/2023 18:28 Report Date: 10/09/2023 [...] Dictated By: Joao Barbosa M.D. Signed By: 10/09/23708 DD/ 5 TD/TT: Gallery Assistant: Procedure Note Radiology, Radiologist, MD - 10/09/2023 [place] [address] Ultrasound Report Signed Patient: JAIME MERRILL KMR#: [id number] : 1975Acct:[id number] Age/Sex: 48 / FADM Date: 10/08/23 Loc: US Attending Dr: Domi Howard NP Ordering Physician: Domi Howard NP Date of Service: 10/08/23 Procedure(s): US pelvis transvaginal Accession Number(s): [id number] cc: Domi Altamirano NP; Domi Howard NP [facility] [place] [id number] Patient Name: JAIME MERRILL MRN: [facility]:[id number] date: 1975 Sex: F Assigned Patient Location: US Current Patient Location: Accession/Order Number: [id number] Exam Date: 10/08/2023 18:28 Report Date: 10/09/2023 [...] By: Joao Barbosa M.D. Signed By:10/09/2309 DD/ 5 TD/TT: Gallery Assistant: us Generic External Data Provider [facility] Final Result documented in this encounter Visit Diagnoses Not on filedocumented in this encounter Care Teams Licensed Final Expense Agents Relationship Specialty Start Date End Date Hiren Horton MD [address] [place] [address] PCP - General Family Medicine 07/26/23 Domi Altamirano NP [address] [place] [address] [facility] 08/24/24 Domi Altamriano NP [address] [place] [address] Nurse Practitioner Family Medicine 03/26/22 Domi Altamirano NP [address] [place] [address] Nurse Practitioner Family Medicine 07/26/23 documented as of this encounter
--- OUTSIDE RECORDS SUMMARY | 2024-10-07 17:47 | XMS_ITS | Encounter Summary ---
Demographics Address [address] [place] [address] Mobile Phone Email Address Preferred Language en Marital Status Unmarried Hinduism Affiliation Unknown Race White Ethnic Group Not or Lati no Author Organization [facility] Address [address] [place] [address] Care Team Providers Care Glass Tube Bender Name Role Phone Domi Altamirano NP Unavailable [phone] Hiren Horton MD Primary Care Provider [phone] Domi Altamirano WINDOW INSTALLATION SUBCONTRACTOR Unavailable [phone] Domi Altamirano NP Unavailable [phone] Encounter Details Date Type Department Care Team (Late st Contact Info) Description 09/23/2024 Abstract [facility] [address] [place] [address] Domi Altamirano NP [address] [place] [address] Social History Tobacco Use Types Packs/Day Years [...] declined 10/08/2023 How often do you attend gnosticism or presybeterian serv ices? Never 10/08/2023 Do you belong to any clubs o r organizations such as gnosticism groups, unions, fraternal or athletic groups, or [...] medical care, and heating? Very hard 10/08/2023 [facility] - Occupational [...] any time in the past 12 m [facility], were you homeless or living in a [...] Visit [facility] [address] [place] [address] Domi Altamirano NP [address] [place] [address] documented as of this encounter Visit Diagnoses Not on filedocumented in this encounter Care Teams Glass Tube Bender Relationship Specialty Start Date End Date Hiren Horton MD [address] [place] [address] PCP - General Family Medicine 07/26/23 Domi Altamirano NP [address] [place] [address] PCP - [place] [employer] 08/24/24 Domi Altamirano NP [address] [place] [address] Nurse Practitioner Family Medicine 03/26/22 Domi Altamirano NP [address] [place] [address] Nurse Practitioner Family Medicine 07/26/23 documented as of this encounter
--- OUTSIDE RECORDS SUMMARY | 2024-10-07 17:47 | XMS_ITS | Encounter Summary ---
Demographics Address [address] [place] [address] Mobile Phone Email Address Preferred Language en Marital Status Unmarried Advent Affiliation Unknown Race White Ethnic Group Not or Lati no Author Organization [facility] Address [address] [place] [address] Care Team Providers Care Farm Planner Name Role Phone Domi Altamirano COGNOS ANALYST Unavailable [phone] Hiren Horton MD Primary Care Provider [phone] Domi Altamirano COGNOS ANALYST Unavailable [phone] Domi Altamirano COGNOS ANALYST Unavailable [phone] Encounter Details Date Type Department Care Team (Late st Contact Info) Description 09/17/2024 Orders Only [facility] [address] [place] [address] Li Ku MD [address] [place] [address] Social History Tobacco Use Types Packs/Day Years [...] declined 10/08/2023 How often do you attend rastafarian or roman catholic serv ices? Never 10/08/2023 Do you belong to any clubs o r organizations such as rastafarian groups, unions, fraternal or athletic groups, or [...] medical care, and heating? Very hard 10/08/2023 [facility] - Occupational Stress Questionnaire Answer Date Recorded [...] any time in the past 12 m [facility], were you homeless or living in a [place] [facility] [place] (including now)? Yes 10/08/2023 Comments Unknown Sex [...] Office Visit [facility] [address] [place] [address] Domi Altamirano NP [address] [place] [address] documented as of this encounter Procedures Procedure Name Priority Date/Time Associated Diagnosis Comments XR CHEST 2 VIEWS Routine 09/17/2024 1:36 PM EDT documented in this encounter Results * XR chest 2 views (09/17/2024 1:36 PM EDT) Anatomical Region Laterality Modality Chest Radiographic Carmen ging Li Ku MD IMG XR PROCEDURES Final Result documented in this encounter Visit Diagnoses Not on filedocumented in this encounter Care Teams Farm Planner Relationship Specialty Start Date End Date Hiren Horton MD [address] [place] [address] PCP - General Family Medicine 07/26/23 Domi Altamirano NP [address] [place] [address] PCP - [place] [employer] 08/24/24 Domi Altamirano NP [address] [place] [address] Nurse Practitioner Family Medicine 03/26/22 Domi Altamirano NP [address] [place] [address] Nurse Practitioner Family Medicine 07/26/23 documented as of this encounter
--- OUTSIDE RECORDS SUMMARY | 2024-10-07 17:47 | XMS_ITS | Encounter Summary ---
Demographics Address [address] [place] [address] Mobile Phone Email Address Preferred Language en Marital Status Unmarried Hindu Affiliation Unknown Race White Ethnic Group Not or Lati no Author Organization [facility] Address [address] [place] [address] Care Team Providers Care Reinsurance Clerk Name Role Phone Domi Altamirano NP Unavailable [phone] Hiren Horton MD Primary Care Provider [phone] Domi Altamirano NP Unavailable [phone] Domi Altamirano NP Unavailable [phone] Encounter Details Date Type Department Care Team (Late st Contact Info) Description 09/25/2023 Orders Only [facility] [address] [place] [address] Seven Leon, OD [address] [place], [place] [id number] Social History Tobacco Use Types Packs/Day Years [...] Visit [facility] [address] [place] [address] Domi Altamirano NP [address] [place] [address] documented as of this encounter Procedures Procedure Name Priority Date/Time Associated Diagnosis Comments TOMOSYNTHESIS SCREEN MAMMOGRAM Routine 09/25/2023 4:17 PM EDT DIABETIC RETINOPATHY SCREENING - OU - BOTH EYES Routine 09/25/2023 8:54 AM EDT documented in this encounter Results * TOMOSYNTHESIS SCREEN MAMMOGRAM (09/25/2023 4:17 PM EDT) Anatomical Region Laterality Modality Radiographic Carmen ging Domi Altamirano MOTOR COACH BUS DRIVER IMG XR PROCEDURES Final Result * Diabetic Retinopathy Screening - OU - Both Eyes (09/25/2023 8:54 AM EDT) Anatomical Region Laterality Modality Head Other us Seven Carolyn OD OPHTH PHOTOGRAPHY Final Result documented in this encounter Visit Diagnoses Not on filedocumented in this encounter Care Teams Reinsurance Clerk Relationship Specialty Start Date End Date Hiren Horton MD [address] [place] [address] PCP - General Family Medicine 07/26/23 Domi Altamirano NP [address] [place] [address] PCP - [place] [employer] 08/24/24 Domi Altamirano NP [address] [place] [address] Nurse Practitioner Family Medicine 03/26/22 Domi Altamirano NP [address] [place] [address] Nurse Practitioner Family Medicine 07/26/23 documented as of this encounter
--- OUTSIDE RECORDS SUMMARY | 2024-10-07 17:47 | XMS_ITS | Encounter Summary ---
Demographics Address [address] [place] [address] Mobile Phone Email Address Preferred Language en Marital Status Unmarried Pentecostalism Affiliation Unknown Race White Ethnic Group Not or Lati no Author Organization [facility] Address [address] [place] [address] Care Team Providers Care Skin Care Therapist Name Role Phone Domi Altamirano NP Unavailable [phone] Hiren Horton MD Primary Care Provider [phone] Domi Altamirano SIGNAL ENGINEER Unavailable [phone] Domi Altamirano NP Unavailable [phone] Encounter Details Date Type Department Care Team (Late st Contact Info) Description 09/22/2024 Abstract [facility] [address] [place] [address] Domi Altamirano NP [address] [place] [address] Social History Tobacco Use Types Packs/Day Years [...] declined 10/08/2023 How often do you attend samaritan or zoroastrianism serv ices? Never 10/08/2023 Do you belong to any clubs o r organizations such as samaritan groups, unions, fraternal or athletic groups, or [...] 10/08/2023 [facility] Occupat ional Health - Occupational Stress [...] time in the past 12 m [facility], were you homeless or living in a long term (including now)? Yes 10/08/2023 Comments Unknown Sex [...] Visit [facility] [address] [place] [address] Domi Altamirano NP [address] [place] [address] documented as of this encounter Visit Diagnoses Not on filedocumented in this encounter Care Teams Skin Care Therapist Relationship Specialty Start Date End Date Hiren Horton MD [address] [place] [address] PCP - General Family Medicine 07/26/23 Domi Altamirano NP [address] [place] [address] PCP - [place] [employer] 08/24/24 Domi Altamirano NP [address] [place] [address] Nurse Practitioner Family Medicine 03/26/22 Domi Altamirano NP [address] [place] [address] Nurse Practitioner Family Medicine 07/26/23 documented as of this encounter
--- OUTSIDE RECORDS SUMMARY | 2024-10-07 17:47 | XMS_ITS | Encounter Summary ---
Demographics Address [address] [place] [address] Mobile Phone Email Address Preferred Language en Marital Status Unmarried Synagogue Affiliation Unknown Race White Ethnic Group Not or Lati no Author Organization [facility] Address [address] [place] [address] Care Team Providers Care Manager Of Merchandising Name Role Phone Domi Altamirano RN BABY Unavailable [phone] Hiren Horton MD Primary Care Provider [phone] Domi Altamirano NP Unavailable [phone] Domi Altamirano NP Unavailable [phone] Encounter Details Date Type Department Care Team (Late st Contact Info) Description 10/09/2023 Orders Only [facility] [address] [place] [address] Domi Munroe MD [place] [address] Social History Tobacco Use Types Packs/Day Years [...] declined 10/08/2023 How often do you attend scientology or lutheran serv ices? Never 10/08/2023 Do you belong to any clubs o r organizations such as scientology groups, unions, fraternal or athletic groups, or [...] medical care, and heating? Very hard 10/08/2023 [facility] of Occupat ional Health - [...] time in the past 12 m [facility], were you homeless or living in a prison (including now)? Yes 10/08/2023 Comments Unknown Sex [...] Office Visit [facility] [address] [place] [address] Domi Altamirano NP [address] [place] [address] documented as of this encounter Procedures Procedure Name Priority Date/Time Associated Diagnosis Comments US PELVIS TRANSVAGINAL Routine 10/09/2023 8:59 AM EDT documented in this encounter Results * US pelvis transvaginal (10/09/2023 8:59 AM EDT) Anatomical Region Laterality Modality Pelvis Ultrasound us Domi Munroe MD IMG US PROCEDURES Final Result documented in this encounter Visit Diagnoses Not on filedocumented in this encounter Care Teams Manager Of Merchandising Relationship Specialty Start Date End Date Hiren Horton MD [address] [place] [address] PCP - General Family Medicine 07/26/23 Domi Altamirano NP [address] [place] [address] PCP - [place] [employer] 08/24/24 Domi Altamirano NP [address] [place] [address] Nurse Practitioner Family Medicine 03/26/22 Domi Altamirano NP [address] [place] [address] Nurse Practitioner Family Medicine 07/26/23 documented as of this encounter
--- OUTSIDE RECORDS SUMMARY | 2024-10-07 17:47 | XMS_ITS | Encounter Summary ---
Demographics Address [address] [place] [address] Mobile Phone Email Address Preferred Language en Marital Status Unmarried Confucianism Affiliation Unknown Race White Ethnic Group Not or Lati no Author Organization [facility] Address [address] [place] [address] Care Team Providers Care Can Pusher Name Role Phone Domi Altamirano NP Unavailable [phone] Hiren Horton MD Primary Care Provider [phone] Domi Altamirano NP Unavailable [phone] Domi Altamirano NP Unavailable [phone] Encounter Details Date Type Department Care Team ([facility] Contact Info) Description 10/03/2023 Orders Only [facility] [address] [place] [address] Orly Rushing MD [address] [place] [address] Social History Tobacco Use Types Packs/Day Years [...] Upcoming Encounters Date Type Department Care Team ([facility] Contact Info) Description 10/21/2024 8:40 AM EDT Office Visit [facility] [address] [place] [address] Domi Altamirano NP [address] [place] [address] documented as of this encounter Procedures Procedure [...] on filedocumented in this encounter Care Teams Can Pusher Relationship Specialty Start Date End Date Hiren Horton MD [address] [place] [address] PCP - General Family Medicine 07/26/23 Domi Altamirano NP [address] [place] [address] PCP - [place] [employer] 08/24/24 Domi Altamirano NP [address] [place] [address] Nurse Practitioner Family Medicine 03/26/22 Domi Altamirano NP [address] [place] [address] Nurse Practitioner Family Medicine 07/26/23 documented as of this encounter
--- OUTSIDE RECORDS SUMMARY | 2024-10-07 17:47 | XMS_ITS | Encounter Summary ---
Demographics Address [address] [place] [address] Mobile Phone Email Address Preferred Language en Marital Status Unmarried Nondenominational Affiliation Unknown Race White Ethnic Group Not or Lati no Author Organization [facility] Address [address] [place] [address] Care Team Providers Care Unit Assistant Name Role Phone Domi Altamirano CARDIOTHORACIC SURGEON Unavailable [phone] Hiren Horton MD Primary Care Provider [phone] Domi Altamirano CARDIOTHORACIC SURGEON Unavailable [phone] Domi Altamirano NP Unavailable [phone] Encounter Details Date Type Department Care Team (Late st Contact Info) Description 09/30/2024 Clinisync Result Encounter [facility] External Department Unsolicited [...] declined 10/08/2023 How often do you attend congregational or shinto serv ices? Never 10/08/2023 Do you belong to any clubs o r organizations such as congregational groups, unions, fraternal or athletic groups, or [...] care, and heating? Very hard 10/08/2023 [facility] [place] of Occupat ional Health - Occupational Stress [...] Office Visit [facility] [address] [place] [address] Domi Altamirano NP [address] [place] [address] documented as of this encounter Procedures Procedure Name Priority Date/Time Associated Diagnosis Comments RETICULOCYTE PCT AUTO Routine 09/30/2024 8:42 AM EDT MHPT DIFFERENTIAL Routine 09/30/2024 8:4 2 AM EDT ALL SED RATE Routine 09/30/2024 8:42 AM EDT ALL CBC WITH AUTO DIFF Routine 09/30/2024 8:42 AM EDT documented in this encounter Results * (ABNORMAL) MHPT DIFFERENTIAL (09/30/2024 8:42 AM EDT) SEGMENTED NEUTROPHILS % MANUAL 70.0 43.0 - 75.0 TBH LYMPHOCYTES PERCENT MANUAL 17.0(L) 20.5 - 60.0 % TBH MONOCYTES PERCENT MANUAL 13.0(H) 1.7 - 12.0 % TBH EOSINOPHILS PERCENT MANUAL 0.0(L) 0.9 - 7.0 % TBH BASOPHILS PERCENT MANUAL 0.0(L) 0.2 - 2.0 % [facility]H SEGMENTED NEUT ABSOLUTE MANUAL 17.78(H) 1.4 - 6.5 10 3/uL TBH LYMPHOCYTES ABSOLUTE MANUAL 4.31(H) 1.20 - 3.80 10 3/uL TB[facility] MONOCYTES ABSOLUTE MANUAL 3.30(H) 0.30 - 0.80 10 3/uL TBH EOSINOPHILS ABSOLUTE MANUAL 0.00 0.00 - 0.70 10 3/uL TBH BASOPHILS ABS MANUAL 0.00 0.00 - 0.10 10 3/uL TBH ANISOCYTOSIS 2+ [facility] 09/30/2024 8:42 AM EDT 09/30/2024 8:49 AM EDT Narrative CLINISYNC - 09/30/2024 9:47 AM EDT Generic External Data Provider CLINISYNC F inal Result Performing Organization Address City/[facility]/ZIP Co de Phone Number [facility] * RETICULOCYTE PCT AUTO (09/30/2024 8:42 AM EDT) Pathologist [facility] RETICULOCYTE PCT AUTO 1.34 0.60 - 3.10 % [facility] 09/30/2024 8:42 AM EDT 09/30/2024 8:49 AM EDT Narrative CLINISYNC - 09/30/2024 9:47 AM EDT Generic External Data Provider LAB BLOOD ORDERAB LES Final Result Performing Organization Address [facility]/ZIP Co de Phone Number [facility] * (ABNORMAL) ALL CBC WITH AUTO DIFF (09/30/2024 8:42 AM EDT) Pathologist [facility] TB WBC 25.4(H) 4.0 - 11.0 10 3/uL TBH TBH RBC 3.57(L) 4.20 - 5.40 10 6/uL TBH TBH HGB 9.0(L) 12.0 - 16.0 g/dL TBH TBH HCT 29.2(L) 36.0 - 48.0 % TBH TBH MCV 81.8 81.0 - 99.0 fL TBH TBH MCH 25.2(L) 26.7 - 34.0 pg TBH TBH MCHC 30.8 29.9 - 35.2 g/dL TBH TBH RDW 22.0(H) 11.0 - 15.0 % TBH TBH PLT 1,006(HH) 150 - 450 10 3/uL TBH Comment:RESULTS CALLED TO TIERRA MATTA RN at 0930 TB MPV 8.5(L) 9.5 - 13.5 fL TBH 09/30/2024 8:42 AM EDT 09/30/2024 8:49 AM EDT Narrative CLINISYNC - 09/30/2024 9:47 AM EDT us Generic External Data Provider CLINISYNC F inal Result CL[facility]IS[facility]NC [facility] * (ABNORMAL) ALL SED RATE (09/30/2024 8:42 AM EDT) [facility] SED RATE >130(H) <=20 mm/hr TBH 09/30/2024 8:42 AM EDT 09/30/2024 8:49 AM EDT Narrative CLINISYNC - 09/30/2024 9:05 AM EDT Generic External Data Provider CLINISYNC F inal Result CL[facility]ISYNC [facility] documented in this encounter Visit Diagnoses Not on filedocumented in this encounter Care Teams Unit Assistant Relationship Specialty Start Date End Date Hiren Horton MD [address] [place] [address] PCP - General Family Medicine 07/26/23 Domi Altamirano NP [address] [place] [address] PCP - [place] [employer] 08/24/24 Domi Altamirano NP [address] [place] [address] Nurse Practitioner Family Medicine 03/26/22 Domi Altamirano NP [address] [place] [address] Nurse Practitioner Family Medicine 07/26/23 documented as of this encounter
--- OUTSIDE RECORDS SUMMARY | 2024-10-07 17:47 | XMS_ITS | Clinical Summary ---
Author Organization [facility] Address [address] [place] [address] Care Team Providers Care Senior Internet Sales Consultant Name Role Phone Lizzette Malik Gunner PEOPLESO[employer] CRM DEVELOPER Primary Care Provider [phone] Domi Altamirano PEOPLESOFT CRM DEVELOPER Unavailable [phone] Allergies Active Allergy Reactions Criticality Noted Date [...] Covid-19 Vaccine ( season) 2023 Influenza Vaccine (#1) 2024 Procedures Procedure Name Priority Date/Time Associated Diagnosis Comments COMPREHENSIVE METABOLIC PANEL STAT 06/19/2017 10:35 PM EDT from Last 3 Months or Most Recently Relevant to Health Maintenance Results * (ABNORMAL) COMP METABOLIC PANEL (06/19/2017 10:35 PM EDT) Protein, Total 6.9 6.3 - 8.0 g/dL 06/19/2017 11:09 PM EDT [facility] Albumin 4.4 3.9 - 4.9 g/dL 06/19/2017 11:09 PM EDT [facility] Calcium 9.4 8.5 - 10.2 mg/dL 06/19/2017 11:09 PM EDT [facility] Bilirubin, Total <0.2(L) 0.2 - 1.3 mg/dL 06/19/2017 11:09 PM EDT [facility] Alkaline Phosphatase 64 32 - 117 U/L 06/19/2017 11:09 PM [facility] AST 11(L) 13 - 35 U/L 06/19/2017 11:09 PM [facility] Glucose 100(H) 74 - 99 mg/dL 06/19/2017 11:09 PM [facility] Comment: The [place] Diabetes Association (ADA) provides guidance for cutoff [...] Standards of Medical Care in Diabetes 2016, [place] Diabetes Association. Diabetes Care. 2016.39(Suppl 1). BUN 11 7 - 21 mg/dL 06/19/2017 11:09 PM [facility] Creatinine 0.75 0.58 - 0.96 mg/dL 06/19/2017 11:09 PM [facility] Sodium 138 136 - 144 mmol/L 06/19/2017 11:09 PM [facility] Potassium 4.0 3.7 - 5.1 mmol/L 06/19/2017 11:09 PM [facility] Chloride 103 97 - 105 mmol/L 06/19/2017 11:09 PM [facility] CO2 24 22 - 30 mmol/L 06/19/2017 11:09 PM [facility] Anion Gap 11 9 - 18 mmol/L 06/19/2017 11:09 PM [facility] ALT 11 7 - 38 U/L 06/19/2017 11:09 PM [facility] eGFR- >60 06/19/2017 11:09 PM [facility] eGFR-All Other Races >60 . 06/19/2017 11:09 PM [facility] Comment: eGFR (Estimated GFR) Units of [...] us Evan Ruiz MD LABORATORY Final Result [facility] [address] [place] [address] from Last 3 Months or Most Recently Relevant to Health Maintenance Insurance [employer] Care Teams Senior Internet Sales Consultant Relationship Specialty Start Date End Date Lizzette Malik CNP PCP - General Family Medicine 12/04/14 Domi Altamirano CNP Referring Family Medicine 10/14/21
--- OUTSIDE RECORDS SUMMARY | 2024-10-07 17:47 | XMS_ITS | Encounter Summary ---
Demographics Address [address] [place] [address] Mobile Phone Email Address Preferred Language en Marital Status Unmarried Jehovah'S Witness Affiliation Unknown Race White Ethnic Group Not or Lati no Author Organization [facility] Address [address] [place] [address] Care Team Providers Care Event Planning Intern Name Role Phone Domi Altamirano HOLE DIGGER Unavailable [phone] Hiren Horton MD Primary Care Provider [phone] Domi Altamirano HOLE DIGGER Unavailable [phone] Domi Altamirano NP Unavailable [phone] Encounter Details Date Type Department Care Team (Latest Contact Info) Description 09/23/2024 Travel Social History Tobacco Use Types Packs/Day Years [...] declined 10/08/2023 How often do you attend alevism or anabaptist serv ices? Never 10/08/2023 Do you belong to any clubs o r organizations such as alevism groups, unions, fraternal or athletic groups, or [...] medical care, and heating? Very hard 10/08/2023 [facility] of Occupat ional Health - Occupational Stress [...] Yes 10/08/2023 Housing Stability Vital Sign Answer Ferdi e Recorded In the last 12 months, was t here a time when you were not able to pay the mortgage or rent on time? No 10/08/2023 In the past 12 months, how m any times have you moved where you were living? 1 10/08/2023 At any time in the past 12 m [facility], were you homeless or living in [...] Visit [facility] [address] [place] [address] Domi Altamirano NP [address] [place] [address] documented as of this encounter Visit Diagnoses Not on filedocumented in this encounter Care Teams Event Planning Intern Relationship Specialty Start Date End Date Hiren Horton MD [address] [place] [address] PCP - General Family Medicine 07/26/23 Domi Altamirano NP [address] [place] [address] PCP - [place] [employer] 08/24/24 Domi Altamirano NP [address] [place] [address] Nurse Practitioner Family Medicine 03/26/22 Domi Altamirano NP [address] [place] [address] Nurse Practitioner Family Medicine 07/26/23 documented as of this encounter
--- OUTSIDE RECORDS SUMMARY | 2024-10-07 17:47 | XMS_ITS | Encounter Summary ---
Demographics Address [address] [place] [address] Mobile Phone Email Address Preferred Language en Marital Status Unmarried Alevism Affiliation Unknown Race White Ethnic Group Not or Lati no Author Organization [facility] Address [address] [place] [address] Care Team Providers Care Professor Of Literature Name Role Phone Domi Altamirano NP Unavailable [phone] Hiren Horton MD Primary Care Provider [phone] Domi Altamirano ATHLETIC COACH Unavailable [phone] Domi Altamirano NP Unavailable [phone] Encounter Details Date Type Department Care Team (Late st Contact Info) Description 09/17/2024 Abstract [facility] [address] [place] [address] Domi Altamirano NP [address] [place] [address] Social History Tobacco Use Types Packs/Day Years [...] declined 10/08/2023 How often do you attend quaker or restorationist serv ices? Never 10/08/2023 Do you belong to any clubs o r organizations such as quaker groups, unions, fraternal or athletic groups, or [...] medical care, and heating? Very hard 10/08/2023 [facility] of Occupat ional Health - Occupational [...] any time in the past 12 m [facility], were you homeless or living in a care home (including now)? Yes 10/08/2023 Comments Unknown Sex [...] Visit [facility] [address] [place] [address] Domi Altamirano NP [address] [place] [address] documented as of this encounter Visit Diagnoses Not on filedocumented in this encounter Care Teams Professor Of Literature Relationship Specialty Start Date End Date Hiren Horton MD [address] [place] [address] PCP - General Family Medicine 07/26/23 Domi Altamirano NP [address] [place] [address] PCP - [place] [employer] 08/24/24 Domi Altamirano NP [address] [place] [address] Nurse Practitioner Family Medicine 03/26/22 Domi Altamirano NP [address] [place] [address] Nurse Practitioner Family Medicine 07/26/23 documented as of this encounter
--- OUTSIDE RECORDS SUMMARY | 2024-10-07 17:47 | XMS_ITS | Encounter Summary ---
Demographics Address [address] [place] [address] Mobile Phone Email Address Preferred Language en Marital Status Unmarried Anabaptism Affiliation Unknown Race White Ethnic Group Not or Lati no Author Organization [facility] Address [address] [place] [address] Care Team Providers Care Workday Financials Consultant Name Role Phone Domi Altamirano NP Unavailable [phone] Hiren Horton MD Primary Care Provider [phone] Domi Altamirano CLIENT SUPPORT ASSOCIATE Unavailable [phone] Domi Altamirano NP Unavailable [phone] Encounter Details Date Type Department Care Team (Late st Contact Info) Description 09/22/2024 Abstract [facility] [address] [place] [address] Domi Altamirano NP [address] [place] [address] Social History Tobacco Use Types Packs/Day Years [...] declined 10/08/2023 How often do you attend presybeterian or scientology serv ices? Never 10/08/2023 Do you belong to any clubs o r organizations such as presybeterian groups, unions, fraternal or athletic groups, or [...] medical care, and heating? Very hard 10/08/2023 [facility] of Occupat ional Health - [...] any time in the past 12 m [facility], were you homeless or living in a fpc (including now)? Yes 10/08/2023 Comments Unknown Sex [...] Visit [facility] [address] [place] [address] Domi Altamirano NP [address] [place] [address] documented as of this encounter Visit Diagnoses Not on filedocumented in this encounter Care Teams Workday Financials Consultant Relationship Specialty Start Date End Date Hiren Horton MD [address] [place] [address] PCP - General Family Medicine 07/26/23 Domi Altamirano NP [address] [place] [address] PCP - [place] [employer] 08/24/24 Domi Altamirano NP [address] [place] [address] Nurse Practitioner Family Medicine 03/26/22 Domi Altamirano NP [address] [place] [address] Nurse Practitioner Family Medicine 07/26/23 documented as of this encounter
--- OUTSIDE RECORDS SUMMARY | 2024-10-07 17:47 | XMS_ITS | Encounter Summary ---
Demographics Address [address] [place] [address] Mobile Phone Email Address Preferred Language en Marital Status Unmarried Religion Affiliation Unknown Race White Ethnic Group Not or Lati no Author Organization [facility] Address [address] [place] [address] Care Team Providers Care Die Developer Name Role Phone Domi Altamirano NP Unavailable [phone] Hiren Horton MD Primary Care Provider [phone] Domi Altamirano SANDING MACHINE OPERATOR Unavailable [phone] Domi Altamirano NP Unavailable [phone] Encounter Details Date Type Department Care Team (Late st Contact Info) Description 09/16/2024 Orders Only [facility] [address] [place] [address] Domi Altamirano NP [address] [place] [address] Social History Tobacco Use Types Packs/Day Years [...] How often do you attend baptist or mandaen serv ices? Never 10/08/2023 Do you belong [...] medical care, and heating? Very hard 10/08/2023 [facility] - [...] any time in the past [address] [facility] [place], were you homeless or living in a jail (including now)? Yes 10/08/2023 Comments Unknown Sex and Gender Information Value Date Recorded Sex Assigned at Not on file Legal Sex Female 6:59 PM EDT Gender Identity Not on file Sexual Orientation Not on file documented as of this encounter Plan of Treatment Upcoming Encounters Date Type Department Care Team (Late st Contact Info) Description 10/21/2024 8:40 AM EDT Office Visit [facility] [address] [place] [address] Domi Altamirano NP [address] [place] [address] documented as of this encounter Procedures Procedure Name Priority Date/Time Associated Diagnosis Comments CT CHEST WO IV CONTRAST Routine 09/16/2024 10:[address] ABDOMEN PELVIS W AND WO IV CONTRAST Routine 09/16/2024 10:[address] HEAD/BRAIN W & WO CONTRAST Routine 09/16/2024 10:32 AM EDT documented in this encounter Results * CT chest wo IV contrast (09/16/2024 10:50 AM EDT) Anatomical Region Laterality Modality Body, Chest Computed Tomogra phy Li TILLEYG CT PROCEDURES Final Result * CT abdomen pelvis w and wo IV contrast (09/16/2024 10:46 AM EDT) Anatomical Region Laterality Modality Body, Pelvis, Abdomen Computed T omography Li MENDOZA CT PROCEDURES Final Result * CT HEAD/BRAIN W & WO CONTRAST (09/16/2024 10:32 AM EDT) Anatomical Region Laterality Modality Radiographic Carmen ging Domi Altamirano SANDING MACHINE OPERATOR IMG XR PROCEDURES Final Result documented in this encounter Visit Diagnoses Not on filedocumented in this encounter Care Teams Die Developer Relationship Specialty Start Date End Date Hiren Horton MD [address] [place] [phone] PCP - General Family Medicine 07/26/23 Domi Altamirano NP [address] [place] [address] PCP - [facility] 08/24/24 Domi Altamirano NP [address] [place] [address] Nurse Practitioner Family Medicine 03/26/22 Domi Altamirano NP [address] [place] [address] Nurse Practitioner Family Medicine 07/26/23 documented as of this encounter
--- OUTSIDE RECORDS SUMMARY | 2024-10-07 17:47 | XMS_ITS | Encounter Summary ---
Demographics Address [address] [place] [address] Mobile Phone Email Address Preferred Language en Marital Status Unmarried Tenriism Affiliation Unknown Race White Ethnic Group Not or Lati no Author Organization [facility] Address [address] [place] [address] Care Team Providers Care Offline Editor Name Role Phone Domi Altamirano NURSING AIDE Unavailable [phone] Hiren Horton MD Primary Care Provider [phone] Domi Altamirano NURSING AIDE Unavailable [phone] Domi Altamirano NURSING AIDE Unavailable [phone] Encounter Details Date Type Department Care Team (Late st Contact Info) Description 09/22/2024 Orders Only [facility] [address] [place] [address] Nakul Swenson MD [address] [place] [address] Social History Tobacco Use Types Packs/Day Years [...] declined 10/08/2023 How often do you attend worship or nondenominational serv ices? Never 10/08/2023 Do you belong to any clubs o r organizations such as worship groups, unions, fraternal or athletic groups, or [...] medical care, and heating? Very hard 10/08/2023 [facility] [...] any time in the past 12 m [facility], were you homeless or living in [...] Office Visit [facility] [address] [place] [address] Domi Altamirano NP [address] [place] [address] documented as of this encounter Procedures Procedure Name Priority Date/Time Associated Diagnosis Comments CT ABDOMEN/PELVIS WITH CONTRAST Routine 09/22/2024 11:14 AM EDT XR CHEST 2 VIEWS Routine 09/22/2024 10:20 AM EDT documented in this encounter Results * CT ABDOMEN/PELVIS WITH CONTRAST (09/22/2024 11:14 AM EDT) Anatomical Region Laterality Modality Radiographic Carmen ging us Nakul Swenson MD IMG XR PROCEDURES Final Result * XR chest 2 views (09/22/2024 10:20 AM EDT) Anatomical Region Laterality Modality Chest Radiographic Carmen ging us Nakul Swenson MD IMG XR PROCEDURES Final Result documented in this encounter Visit Diagnoses Not on filedocumented in this encounter Care Teams Offline Editor Relationship Specialty Start Date End Date Hiren Horton MD [address] [place] [address] PCP - General Family Medicine 07/26/23 Domi Altamirano NP [address] [place] [address] PCP - [facility] 08/24/24 Domi Altamirano NP [address] [place] [address] Nurse Practitioner Family Medicine 03/26/22 Domi Altamirano NP [address] [place] [address] Nurse Practitioner Family Medicine 07/26/23 documented as of this encounter
--- OUTSIDE RECORDS SUMMARY | 2024-10-07 17:48 | XMS_ITS | Encounter Summary ---
Demographics Address [address] [place] [address] Mobile Phone Email Address Preferred Language en Marital Status Unmarried Mandaen Affiliation Unknown Race White Ethnic Group Not or Lati no Author Organization [facility] Address [address] [place] [address] Care Team Providers Care Programmer Numerical Control Name Role Phone Domi Altamirano SLITTER SCORER Unavailable [phone] Hiren Horton MD Primary Care Provider [phone] Domi Altamirano SLITTER SCORER Unavailable [phone] Domi Altamirano SLITTER SCORER Unavailable [phone] Encounter Details Date Type Department Care Team (Late st Contact Info) Description 12/31/2023 Orders Only [facility] [address] [place] [address] Abran West MD [address] [place], [place] [id number] Social History Tobacco Use Types Packs/Day Years [...] How often do you attend gnosticism or latter-day serv ices? Never 10/08/2023 Do you belong [...] medical care, and heating? Very hard 10/08/2023 [facility] - Occupational Stress [...] any time in the past 12 m [place], were you homeless or living in a [...] Office Visit [facility] [address] [place] [address] Domi Altamirano NP [address] [place] [address] documented as of this encounter Procedures Procedure [...] on filedocumented in this encounter Care Teams Programmer Numerical Control Relationship Specialty Start Date End Date Hiren Horton MD [address] [place] [address] PCP - General Family Medicine 07/26/23 Doim Altamirano NP [address] [place] [address] PCP - [facility] [employer] 08/24/24 Domi Altamirano NP [address] [place] [address] Nurse Practitioner Family Medicine 03/26/22 Domi Altamirano NP [address] [place] [address] Nurse Practitioner Family Medicine 07/26/23 documented as of this encounter
--- OUTSIDE RECORDS SUMMARY | 2024-10-07 17:48 | XMS_ITS | Clinical Summary ---
Demographics Address [address] [place] [address] Mobile Phone Email Address Preferred Language en Marital Status Unmarried Adventism Affiliation Unknown Race White Ethnic Group Not or Lati no Author Organization [facility] Address [address] [place] [address] Care Team Providers Care Retail Service Representative Name Role Phone Domi Altamirano NP Unavailable [phone] Hiren Horton MD Primary Care Provider [phone] Domi Altamirano NP Unavailable [phone] Domi Altamirano NP Unavailable [phone] Allergies Active Allergy Reactions Criticality Noted Date Comments Erythromycin Unknown 02/21/2023 Latex Unknown 02/21/2023 Methylprednisolone Unknown 02/21/2023 Methylprednisolone Sodium Succ Anaphylaxis High 12/0 08/2016 Tramadol 07/26/2023 Dbuuetpwcyz-Plbmlvukv-Vujkgu Shortness of breath High 02/21/2023 Medications cetirizine (ZyrTEC) 10 MG tabletIndications: Environmental and seasonal allergies Take 1 tablet (10 mg) by mouth Daily 90 tablet 1 4 Active albuterol HFA 90 mcg/act inhalerIndications :Centrilobular emphysema (HCC),Asthma without status asthmaticus without complication, unspecified asthma severity, unspecified whether persistent (HCC) Inhale 2 puffs every 6 (six) hours if needed for wheezing or shortness of breath 54 g 1 4 Active fexofenadine (Vandana) 180 MG tabletIndications: Seasonal [...] mg) by mouth at bedtime 90 tablet 5 025 Active fluticasone (Flonase) 50 MCG/ACT nasal sprayIndications:E nvironmental and seasonal allergies Administer 2 sprays into each nostril Daily Shake gently. Before first use, prime pump. After use, clean tip and replace cap. 48 g 025 Active gabapentin (Neurontin) 400 MG capsuleIndications :Chronic pain syndrome Take 1 capsule (400 mg) by mouth every 8 (eight) hours if needed (back pain) 270 capsule 025 Active tiotropium-olodate rol (Stiolto Respimat) 2.5-2.5 MCG/ACT aerosol solution inhalerIndications :Centrilobular emphysema (HCC) Inhale 2 Inhalation Daily 12 g 025 Active omeprazole (PriLOSEC) [address] capsuleIndications :Gastroesophageal reflux disease without esophagitis Take 1 capsule (40 mg) by mouth in the morning and 1 capsule (40 mg) before bedtime. 180 capsule 025 Active montelukast (Singulair) 10 MG tabletIndications: Asthma without status asthmaticus without complication, unspecified asthma severity, unspecified whether persistent (HCC) Take 1 tablet (10 mg) by mouth at bedtime 90 tablet 5 025 Active losartan (Cozaar) 50 MG tabletIndications: Hypertension Take 1 tablet (50 mg) by mouth Daily 90 tablet 5 025 Active metoprolol tartrate (Lopressor) 50 MG tabletIndications: Heart palpitations Take 1 tablet (50 mg) by mouth in the morning and 1 tablet (50 mg) before bedtime. 180 tablet 1 025 Active Active Problems Problem Noted Date Diagnosed Date [...] dose changes Encounter for well woman exestrada beckett with routine gynecological exam 07/27/2023 Arthritis 07/26/2023 [...] 07/22/2024 Bronchitis 12/11/2023 04/14/2024 Overview (01/10/2024): HEALTH[employer]ACKSRX [id number] Exp: 03/25/24 Lot # [id number] Assessment & Plan (01/10/2024 1:18 PM EDT): No wheezing noted, multiple allergies and has been on z pack as well as doxy and steroids Will order health trax Possible allergy trigger?? Samples of vandana 180mg 1 po daily, and #2 samples Lot [id number], exp 08/18 Airsupra sample #1; [id number], exp 04/2024 Astepro allergy nasal spray 2 [...] AM EDT): Tremayne samples X3 given Lot: [id number], exp 12/18 Assessment & Plan (10/15/2023 7:48 PM EDT): Continue with current meds no changes Major depression in partial remission 07/26/2023 04/14/2024 Encounters Date Type Department Care Team Description 09/30/2024 Clinisync Result Encounter [facility] External Department Unsolicited Provider, Generic External Data 09/23/2024 Travel 09/23/2024 Abstract [facility] [address] [place] [address] Domi Altamirano, SOFTWARE TECHNICAL LEAD 09/22/2024 Abstract [facility] [address] [place] [address] Domi Altamirano, SOFTWARE TECHNICAL LEAD 09/22/2024 Orders Only [facility] [address] [place] [address] Nakul Swenson MD 09/22/2024 Abstract [facility] [address] [place] [address] Domi Altamirano, SOFTWARE TECHNICAL LEAD 09/18/2024 Clinisync Result Encounter [facility] External Department Unsolicited Provider, Generic External Data 09/18/2024 Abstract [facility] [address] [place] [address] Domi Altamirano, SOFTWARE TECHNICAL LEAD 09/17/2024 Abstract [facility] [address] [place] [address] Domi Altamirano, SOFTWARE TECHNICAL LEAD 09/17/2024 Orders Only [facility] [address] [place] [address] Li Ku MD 09/17/2024 Abstract [facility] [address] [place] [address] Domi Altamirano, SOFTWARE TECHNICAL LEAD 09/16/2024 Abstract [facility] [address] [place] [address] Domi Altamirano, MIGUEL A 09/16/2024 Orders Only [facility] [address] [place] [address] Domi Altamirano NP 09/16/2024 Abstract [facility] [address] [place] [address] Domi Altamirano NP 09/16/2024 Clinisync Result Encounter [facility]S External Department Unsolicited Billie Mena PA 08/15/2024 Refill [facility] [address] [place] [address] Domi Altamirano NP Pharyngitis, unspecified etiology (Primary Dx) 08/15/2024 Telephone [facility] [address] [place] [address] Domi Altamirano NP 07/22/2024 8:40 AM EDT Office Visit [facility] [address] [place] [address] Domi Altamirano NP Type 2 diabetes mellitus without complication, without long-term current use of insulin (HCC) (Primary Dx); Type 2 diabetes mellitus with other specified complication ([facility]); Mixed hyperlipidemia ; Centrilobular emphysema ([facility]); Essential hypertension, benign ; Gastroesophageal reflux disease without esophagitis; Alcoholism in remission ([facility]); Environmental and seasonal allergies; Chronic pain syndrome; Asthma without status asthmaticus without complication, unspecified asthma severity, unspecified whether persistent ([facility]); Heart palpitations 07/22/2024 Bamboo flowsheet [facility] [address] [place] [address] Domi Altamirano NP from Last 3 Months [...] declined 10/08/2023 How often do you attend yazdanism or tenriism serv ices? Never 10/08/2023 Do you belong to any clubs o r organizations such as yazdanism groups, unions, fraternal or athletic groups, or [...] care, and heating? Very hard 10/08/2023 [facility] Occupational Stress Questionnaire Answer [...] the money to buy more. Often true 07 / Within the past 12 months, t he [...] any time in the past [facility], were you homeless or living in a nursing home (including now)? Yes 10/08/2023 Comments Unknown [...] Office Visit [facility] [address] [place] [address] Domi Altamirano NP [address] [place] [address] Health Maintenance Due Date Last Done Comments [...] Procedure Name Priority Date/Time Associated Diagnosis Comments MHPT DIFFERENTIAL Routine 09/30/2024 8:4 2 AM EDT RETICULOCYTE PCT AUTO Routine 09/30/2024 8:42 AM EDT ALL CBC WITH AUTO DIFF Routine 8:42 AM EDT ALL SED RATE Routine 09/30/2024 8:[address] ABDOMEN/PELVIS WITH CONTRAST Routine 09/22/2024 11:14 AM EDT XR CHEST 2 VIEWS Routine 09/22/2024 10:2 0 AM EDT BLOOD CULTURE 2 Routine 09/18/2024 1:30 PM EDT BLOOD CULTURE 1 Routine 09/18/2024 1:22 PM EDT LOWER RESPIRATORY CULTURE Routine 09/18/2024 9:53 AM EDT GRAM STAIN EVALUATION Routine 09/18/2024 9:53 AM EDT RESULT 4 Routine 09/18/2024 9:53 AM EDT RESULT 3 Routine 09/18/2024 9:53 AM EDT RESULT 2 Routine 09/18/2024 9:53 AM EDT RESULT 1 Routine 09/18/2024 9:53 AM EDT EPITHELIAL CELLS Routine 09/18/2024 9:53 AM EDT WHITE BLOOD CELLS Routine 09/18/2024 9:5 3 AM EDT XR CHEST 2 VIEWS Routine 09/17/2024 1:[address] CHEST WO IV CONTRAST Routine 09/16/2024 10:[address] ABDOMEN PELVIS W AND WO IV CONTRAST Routine 09/16/2024 10:[address] HEAD/BRAIN W & WO CONTRAST Routine 09/16/2024 10:32 AM EDT [facility]HP URINALYSIS, WITH MICROSCOPIC Routine 09/16/2024 1:21 AM EDT POCT GLYCOSYLATED HEMOGLOBIN (HGB A1C) Routine 07/22/2024 [...] Recently Relevant to Health Maintenance Results * RETICULOCYTE PCT AUTO (09/30/2024 8:42 AM EDT) RETICULOCYTE PCT AUTO 1.34 0.60 - 3.10 % [facility] 09/30/2024 8:42 AM EDT 09/30/2024 8:49 AM EDT Narrative [facility]NC - 09/30/2024 9:47 AM EDT Generic External Data Provider LAB BLOOD ORDERAB LES Final Result [facility] * (ABNORMAL) MHPT DIFFERENTIAL (09/30/2024 8:42 AM [...] External Data Provider CLINISYNC F inal Result [facility] * (ABNORMAL) ALL SED RATE (09/30/2024 8:42 AM EDT) TB SED RATE >130(H) <=20 mm/hr [facility] 09/30/2024 8:42 AM EDT 09/30/2024 8:49 AM EDT Narrative CLINISYNC - 09/30/2024 9:05 AM EDT Generic External Data Provider CLINISYNC F inal Result Performing Organization Address [facility] de Phone Number [facility] * (ABNORMAL) ALL CBC WITH AUTO DIFF (09/30/2024 8:42 AM EDT) TB WBC 25.4(H) 4.0 - 11.0 10 [...] CALLED TO TIERRA MATTA RN at 0930 [facility] MPV 8.5(L) 9.5 - 13.5 fL [facility] 09/30/2024 8:42 AM EDT 09/30/2024 8:49 AM EDT Narrative CLINISYNC - 09/30/2024 9:47 AM EDT Generic External Data Provider CLINKAENC F inal Result Performing Organization Address [facility] de Phone Number [facility] * CT ABDOMEN/PELVIS WITH CONTRAST (09/22/2024 11:14 AM EDT) Anatomical Region Laterality Modality Radiographic Carmen ging us Nakul Swenson MD IMG XR PROCEDURES Final Result * XR chest 2 views (09/22/2024 10:20 AM EDT) Only the most recent of2 resultswithin the time period is included. Anatomical Region Laterality Modality Chest Radiographic Carmen ging Nakul Swenson MD IMG XR PROCEDURES Final Result * BLOOD CULTURE 2 (09/18/2024 1:30 PM EDT) BLOOD CULTURE 2 Blood Culture 2 NG5D NO GROWTH AT 5 DAYS.^NO GROWTH AT 5 DAYS. [facility] 09/18/2024 1:30 PM EDT 09/18/2024 1:37 PM EDT Narrative CLINISYNC - 09/23/2024 3:26 PM EDT PEDS BOTTLE us Generic External Data Provider LAB BLOOD ORDERAB LES Final Result Performing Organization Address City/[facility]/ZIP Co de Phone Number [facility] * BLOOD CULTURE 1 (09/18/2024 1:22 PM EDT) BLOOD CULTURE 1 Blood Culture 1 NG5D NO GROWTH AT 5 DAYS.^NO GROWTH AT 5 DAYS. [facility] 09/18/2024 1:22 PM EDT 09/18/2024 1:36 PM EDT Narrative CLINISYNC - 09/23/2024 3:25 PM EDT PEDS BOTTLE us Generic External Data Provider LAB BLOOD ORDERAB LES Final Result Performing Organization Address [facility] Co de Phone Number [facility] * LOWER RESPIRATORY CULTURE (09/18/2024 9:53 AM EDT) LOWER RESPIRATORY CULTURE Lower Respiratory Culture WILL FOLLOW [facility] LOWER RESPIRATORY CULTURE Routine respiratory luke [facility] LOWER RESPIRATORY CULTURE Performed at: - [facility] LOWER RESPIRATORY CULTURE [address] [place], [place] [id number] [facility] LOWER RESPIRATORY CULTURE Watch Assembly Instructor: Abel Finnegan PhD, Phone: [phone] [facility] 09/18/2024 9:53 AM EDT 09/18/2024 10:37 AM EDT Narrative CLINISYNC - 09/21/2024 9:07 PM EDT us Generic External Data Provider LAB BLOOD ORDERAB LES Final Result Performing Organization Address [facility] Co de Phone Number [facility] * GRAM STAIN EVALUATION (09/18/2024 9:53 AM EDT) GRAM STAIN EVALUATION Gram Stain Evaluation This specimen is of good quality and is acceptable for routine TB GRAM STAIN EVALUATION bacterial culture. [facility] 09/18/2024 9:53 AM EDT 09/18/2024 10:37 AM EDT Narrative CLINISYNC - 09/21/2024 9:07 PM EDT Generic External Data Provider LAB BLOOD ORDERAB LES Final Result Performing Organization Address [facility] Co de Phone Number [facility] * RESULT 4 (09/18/2024 9:53 AM EDT) RESULT 4 Result 4 SOFTWARE TECHNICAL LEAD TB 09/18/2024 9:53 AM EDT 09/18/2024 10:37 AM EDT Narrative CLINISYNC - 09/21/2024 9:07 PM EDT Generic External Data Provider LAB BLOOD ORDERAB LES Final Result Performing Organization Address [facility] Co de Phone Number [facility] TB * RESULT 3 (09/18/2024 9:53 AM EDT) RESULT 3 Result 3 Few gram negative cocci TB 09/18/2024 9:53 AM EDT 09/18/2024 10:37 AM EDT Narrative CLINISYNC - 09/21/2024 9:07 PM EDT Generic External Data Provider LAB BLOOD ORDERAB LES Final Result Performing Organization Address [facility] Co de Phone Number [facility] TB * RESULT 2 (09/18/2024 9:53 AM EDT) RESULT 2 Result 2 Few gram negative rods. TB 09/18/2024 9:53 AM EDT 09/18/2024 10:37 AM EDT Narrative CLINISYNC - 09/21/2024 9:07 PM EDT Generic External Data Provider LAB BLOOD ORDERAB LES Final Result Performing Organization Address [facility] Co de Phone Number [facility] * RESULT 1 (09/18/2024 9:53 AM EDT) RESULT 1 Result 1 Many gram positive cocci. [facility] 09/18/2024 9:53 AM EDT 09/18/2024 10:37 AM EDT Narrative CLINISYNC - 09/21/2024 9:07 PM EDT Generic External Data Provider LAB BLOOD ORDERAB LES Final Result Performing Organization Address [facility] de Phone Number [facility] * EPITHELIAL CELLS (09/18/2024 9:53 AM EDT) EPITHELIAL CELLS Epithelial Cells Few [facility] 09/18/2024 9:53 AM EDT 09/18/2024 10:37 AM EDT Narrative CLINISYNC - 09/21/2024 9:07 PM EDT Generic External Data Provider LAB BLOOD ORDERAB LES Final Result Performing Organization Address [facility] de Phone Number [facility] * WHITE BLOOD CELLS (09/18/2024 9:53 AM EDT) WHITE BLOOD CELLS White Blood Cells TBH WHITE BLOOD CELLS None seen [facility] 09/18/2024 9:53 AM EDT 09/18/2024 10:37 AM EDT Narrative CLINISYNC - 09/21/2024 9:07 PM EDT Generic External Data Provider LAB BLOOD ORDERAB LES Final Result Performing Organization Address [facility] Co de Phone Number [facility] * CT chest wo IV contrast (09/16/2024 10:50 AM EDT) Anatomical Region Laterality Modality Body, Chest Computed Tomogra phy us Li Ku MD IMG CT PROCEDURES Final Result * CT abdomen pelvis w and wo IV contrast (09/16/2024 10:46 AM EDT) Anatomical Region Laterality Modality Body, Pelvis, Abdomen Computed T omography Li Ku MD [facility] CT PROCEDURES Final Result * CT HEAD/BRAIN W & WO CONTRAST (09/16/2024 10:32 AM EDT) Anatomical Region Laterality Modality Radiographic Carmen ging Domi Altamirano NP IMG XR PROCEDURES Final Result * (ABNORMAL) [facility] URINALYSIS, WITH MICROSCOPIC (09/16/2024 1:21 AM EDT) COLOR URINE YELLOW YELLOW TBH CLARITY URINE CLEAR CLEAR TBH SPECIFIC GRAVITY URINE 1.020 1.005 - 1.025 TBH PH URINE 6.0 5.0 - 9.0 TBH PROTEIN URINE 30(A) NEG/TRACE mg/dL TBH GLUCOSE URINE UA NEGATIVE NEGATIVE mg/dL TBH BILIRUBIN URINE NEGATIVE NEGATIVE TBH KETONES URINE NEGATIVE NEGATIVE mg/dL TBH BLOOD URINE TRACE-L NEGATIVE TBH NITRITE URINE NEGATIVE NEGATIVE TBH UROBILINOGEN URINE 1.0 0.2 - 1.0 EU/dL TBH LEUKOCYTE ESTERASE URINE NEGATIVE NEGATIVE TBH TBH WBC 0-2(A) NONE SEEN #/HPF TBH TBH RBC NONE SEEN 0 - 2 #/HPF TBH BACTERIA URINE TRACE(A) NONE SEEN #/HPF TBH MUCUS URINE NONE SEEN NONE SEEN TBH SQUAMOUS EPITHELIAL CELL URINE RARE NONE/RARE #/LPF TBH CRYSTALS SEEN? None Seen None Seen #/HPF TBH CAST SEEN? NONE SEEN NONE SEEN #/LPF TBH URINE CULTURE INDICATED NO [facility]H 09/16/2024 1:21 AM EDT 09/16/2024 1:30 AM EDT Narrative CLINISYNC - 09/16/2024 1:52 AM EDT Billie WEEKSISYKENNEY Final Result [facility]NC [facility] * POCT glycosylated hemoglobin (Hb A1C) docked device (07/22/2024 8:47 AM EDT) Hemoglobin A1C 5.6 Blood Venous blood specimen / Unknown 07/22/2024 8:47 AM EDT Domi Altamirano MIGUEL A POINT OF CARE TEST ENTER/EDIT O RDERABLES Final Result * Cologuard?? colon cancer screening (10/09/2023 1:30 PM EDT) NONINV COLON CA DNA+OCC BLD SCRN STL-IMP Negative Negative 10/21/2023 5:33 PM EDT [employer] (CLIA #:[id number]) Comment: NEGATIVE TEST RESULT. A negative Cologuard [...] (Ousmane Buitrago al, N Engl J Med 2014;370(14):6372-1315) The normal value (reference range) for this assay is negative. COLOGUARD RE-SCREENING RECOMMENDATION: Periodic colorectal cancer screening is an important part of preventive healthcare for asymptomatic individuals at average risk for colorectal cancer. Following a negative Cologuard result, the [place] [employer] and U.S. Multi-Society Task Force screening guidelines recommend a Cologuard re-screening interval of 3 years. References: [place] [employer] Guideline for Colorectal Cancer Screening: https://www.cancer.org/cancer/ahdcs-cchygu-vcrqnu/otllszadp-mqzfaxqkb-fcmmaaz/ac s-rec ommendations.html.; Jonathan DK, John CR, Ciro LE, Colorectal Cancer Screening: Recommendations for Physicians and Patients from the U.S. Multi-Society Task Force on Colorectal Cancer Screening , Am J Gastroenterology 2017; 112:4154-5282. TEST DESCRIPTION: Composite algorithmic analysis of stool [...] (Ousmane Buitrago al, N Engl J Med 2014;370(14):0027-9893.) Cologuard may produce a false negative or false positive result (no colorectal cancer or precancerous polyp present at colonoscopy follow up). A negative Cologuard test result does not guarantee the absence of CRC or advanced adenoma (pre-cancer). The current Cologuard screening interval is every 3 years. ([place] [employer] and U.S. Multi-Society Task Force). Cologuard performance data in a 10,000 patient pivotal study using colonoscopy as the reference method can be accessed at the following location: www.[employer].com/results. Additional description of the Cologuard test process, warnings and precautions can be found at www.[employer].com. Stool specimen (specimen) 10/09/2023 1:30 PM EDT 10/11/2023 8:01 AM EDT Domi Altamirano NP LAB MOLECULAR DIAGNOSTICS ORDER DEANDRE Final Result .[employer] (CLIA #:[id number]) [address] [address], [employer] (CLIA #:[id number]) [address] [address] * MM TOMOSYNTHESIS SCREENING BI (09/25/2023 3:19 PM EDT) Anatomical Region Laterality Modality Other 09/25/2023 3:19 PM EDT Narrative 09/25/2023 3:20 [place] [address] Mammography Report Signed Patient: RYLEE BURTON MR#: [id number] : 1975 Acct:[id number] Age/Sex: 48 / F ADM Date: 09/24/23 Loc: MAMMO Attending Dr: Domi Altamirano NP Ordering Physician: Domi Altamirano NP Results: Date of Service: 09/24/23 Follow Up: Procedure(s): MM tomosynthesis screening BI Accession Number(s): [id number] cc: Domi Altamirano NP Patient Name: RYLEE BURTNO MR#: [id number] : 1975 Exam Date: 09/24/2023 Ordering Doctor: [...] lymphoma cancer at age 63. LOCATION: [facility] BREAST COMPOSITION: The breasts are heterogeneously dense,which [...] Signed By: 09/25/23 1520 DD/ 1519 TD/TT: Automotive Sales Manager: Procedure Note Radiology, Radiologist, MD - 09/25/2023 [place] [address] Mammography Report Signed Patient: RYLEE BURTON KMR#: [id number] : 1975Acct:[id number] Age/Sex: 48 / FADM Date: 09/24/23 Loc: MAMMO Attending Dr: Domi Altamirano NP Ordering Physician: Domi Altamirano NPResults: Date of Service: 09/24/23Follow Up: Procedure(s): MM tomosynthesis screening BI Accession Number(s): [id number] cc: Domi Altamirano NP Patient Name: RYLEE BURTON MR#: [id number] : 1975 Exam Date: 09/24/2023 Ordering Doctor: [...] lymphoma cancer at age 63. LOCATION: [facility] BREAST COMPOSITION: The breasts are heterogeneously dense,which [...] M.D. Signed By:09/25/23 1520 DD/ 1519 TD/TT: Automotive Sales Manager: Domi Altamirano NP CLINIS[facility] IMAGING Final Result * Diabetic Retinopathy Screening - OU - Both Eyes (09/25/2023 8:54 AM EDT) Anatomical Region Laterality Modality Head Other us Seven Leon OD OPHTH PHOTOGRAPHY Final Result from Last 3 Months or Most Recently Relevant to Health Maintenance Insurance * Guarantor: Rylee Burton Account Type Relation to Patient Date of Phone Billing Address Personal/Family Self 1975 [facility] [address] [facility] [address] [place] [address] [facility] Care Teams Retail Service Representative Relationship Specialty Start Date End Date Hiren Horton MD [address] [place] [address] PCP - General Family Medicine 07/26/23 Domi Altamirano NP [address] [place] [address] PCP - [employer] 08/24/24 Domi Altamirano NP [address] [place] [address] Nurse Practitioner Family Medicine 03/26/22 Domi Altamirano NP [address] [place] [address] Nurse Practitioner Family Medicine 07/26/23
--- OUTSIDE RECORDS SUMMARY | 2024-10-07 17:48 | XMS_ITS | Encounter Summary ---
Demographics Address [address] [place] [address] Mobile Phone Email Address Preferred Language en Marital Status Unmarried Yazidi Affiliation Unknown Race White Ethnic Group Not or Lati no Author Organization [facility] Address [address] [place] [address] Care Team Providers Care Water Meter Mechanic Name Role Phone Domi Altamirano NP Unavailable [phone] Hiren Horton MD Primary Care Provider [phone] Domi Altamirano STONE CLEANER Unavailable [phone] Domi Altamirano NP Unavailable [phone] Encounter Details Date Type Department Care Team (Late st Contact Info) Description 09/16/2024 Abstract [facility] [address] [place] [address] Domi Altamirano NP [address] [place] [address] Social History Tobacco Use Types Packs/Day Years [...] declined 10/08/2023 How often do you attend jainism or evangelical serv ices? Never 10/08/2023 Do you belong to any clubs o r organizations such as jainism groups, unions, fraternal or athletic groups, or [...] medical care, and heating? Very hard 10/08/2023 [facility] - Occupational [...] any time in the past 12 m [facility], were you homeless or living in [...] Visit [facility] [address] [place] [address] Domi Altamirano NP [address] [place] [address] documented as of this encounter Visit Diagnoses Not on filedocumented in this encounter Care Teams Water Meter Mechanic Relationship Specialty Start Date End Date Hiren Horton MD [address] [place] [id number] PCP - General Family Medicine 07/26/23 Domi Altamirano NP [address] [place] [address] PCP - [employer] 08/24/24 Domi Altamirano NP [address] [place] [address] Nurse Practitioner Family Medicine 03/26/22 Domi Altamirano NP [address] [place] [address] Nurse Practitioner Family Medicine 07/26/23 documented as of this encounter
--- OUTSIDE RECORDS SUMMARY | 2024-10-07 17:48 | XMS_ITS | Encounter Summary ---
Demographics Address [address] [place] [address] Mobile Phone Email Address Preferred Language en Marital Status Unmarried Mandaeism Affiliation Unknown Race White Ethnic Group Not or Lati no Author Organization [facility] Address [address] [place] [address] Care Team Providers Care Azure Principal Solution Specialist Name Role Phone Domi Altamirano NP Unavailable [phone] Hiren Horton MD Primary Care Provider [phone] Domi Altamirano HAND TRIMMER Unavailable [phone] Domi Altamirano NP Unavailable [phone] Encounter Details Date Type Department Care Team (Late st Contact Info) Description 12/18/2023 Orders Only [facility] [address] [place] [address] Domi Altamirano NP [address] [place] [address] Social History Tobacco Use Types Packs/Day Years [...] How often do you attend baptism or mu-ism serv ices? Never 10/08/2023 Do you belong [...] medical care, and heating? Very hard 10/08/2023 [facility] - [...] any time in the past [facility] were you homeless or living in [...] EDT Office Visit [facility] [address] [place] [address] Domi Altamirano NP [address] [place] [place] [address] documented as of this encounter Procedures Procedure Name Priority Date/Time Associated Diagnosis Comments SCANNED LABS Routine 12/18/2023 11:09 AM EDT documented in this encounter Results * SCANNED LABS (12/18/2023 11:09 AM EDT) Domi Altamirano HAND TRIMMER LAB CHG PERFORMABLES Final Resu lt documented in this encounter Visit Diagnoses Not on filedocumented in this encounter Care Teams Azure Principal Solution Specialist Relationship Specialty Start Date End Date Hiren Horton MD [address] [place] [address] PCP - General Family Medicine 07/26/23 Domi Altamirano NP [address] [place] [address] PCP - [place] [employer] 08/24/24 Domi Altamirano NP [address] [place] [address] Nurse Practitioner Family Medicine 03/26/22 Domi Altamirano NP [address] [place] [address] Nurse Practitioner Family Medicine 07/26/23 documented as of this encounter
--- OUTSIDE RECORDS SUMMARY | 2024-10-07 17:48 | XMS_ITS | Encounter Summary ---
Demographics Address [address] [place] [address] Mobile Phone Email Address Preferred Language en Marital Status Unmarried Catholic Affiliation Unknown Race White Ethnic Group Not or Lati no Author Organization [facility] Address [address] [place] [address] Care Team Providers Care Shipping Receiving Clerk Name Role Phone Domi Altamirano NP Unavailable [phone] Hiren Horton MD Primary Care Provider [phone] Domi Altamirano ROOF SLATER Unavailable [phone] Domi Altamirano NP Unavailable [phone] Encounter Details Date Type Department Care Team (Late st Contact Info) Description 12/17/2023 Orders Only [facility] [address] [place] [address] Domi Altamirano NP [address] [place] [address] Social History Tobacco Use Types Packs/Day Years [...] declined 10/08/2023 How often do you attend sabianism or moravian serv ices? Never 10/08/2023 Do you belong to any clubs o r organizations such as sabianism groups, unions, fraternal or athletic groups, or [...] medical care, and heating? Very hard 10/08/2023 [facility] - Occupational Stress [...] Visit [facility] [address] [place] [address] Domi Altamirano NP [address] [place] [address] documented as of this encounter Procedures Procedure Name Priority Date/Time Associated Diagnosis Comments XR CHEST 1 VIEW Routine 12/17/2023 2:13 PM EDT documented in this encounter Results * XR chest 1 view (12/17/2023 2:13 PM EDT) Anatomical Region Laterality Modality Chest Radiographic Carmen ging Domi Altamirano NP IMG XR PROCEDURES Final Result documented in this encounter Visit Diagnoses Not on filedocumented in this encounter Care Teams Shipping Receiving Clerk Relationship Specialty Start Date End Date Hiren Horton MD [address] [place] [address] PCP - General Family Medicine 07/26/23 Domi Altamirano NP [address] [place] [address] PCP - [place] [employer] 08/24/24 Domi Altamirano NP [address] [place] [address] Nurse Practitioner Family Medicine 03/26/22 Domi Altamirano NP [address] [place] [address] Nurse Practitioner Family Medicine 07/26/23 documented as of this encounter
--- OUTSIDE RECORDS SUMMARY | 2024-10-07 17:48 | XMS_ITS | Encounter Summary ---
Demographics Address [address] [place] [address] Mobile Phone Email Address Preferred Language en Marital Status Unmarried Worship Affiliation Unknown Race White Ethnic Group Not or Lati no Author Organization [facility] Address [address] [place] [address] Care Team Providers Care Python Engineer Name Role Phone Domi Altamirano NP Unavailable [phone] Hiren Horton MD Primary Care Provider [phone] Domi Altamirano ACCOUNTING BOOKKEEPER Unavailable [phone] Domi Altamirano NP Unavailable [phone] Encounter Details Date Type Department Care Team (Late st Contact Info) Description 01/10/2024 Abstract [facility] [address] [place] [address] Domi Altamirano NP [address] [place] [address] Social History Tobacco Use Types Packs/Day Years [...] declined 10/08/2023 How often do you attend christianity or christian serv ices? Never 10/08/2023 Do you belong to any clubs o r organizations such as christianity groups, unions, fraternal or athletic groups, or [...] medical care, and heating? Very hard 10/08/2023 [facility] - Occupational Stress [...] time in the past 12 m [facility], were you homeless or living in a fdc (including now)? Yes 10/08/2023 Comments Unknown Sex [...] [facility] [address] [place] [address] Domi Altamirano NP [address] [place] [address] documented as of this encounter Visit Diagnoses Not on filedocumented in this encounter Care Teams Python Engineer Relationship Specialty Start Date End Date Hiren Horton MD [address] [place] [address] PCP - General Family Medicine 07/26/23 Domi Altamirano NP [address] [place] [address] PCP - [place] [employer] 08/24/24 Domi Altamirano NP [address] [place] [address] Nurse Practitioner Family Medicine 03/26/22 Domi Altamirano NP [address] [place] [address] Nurse Practitioner Family Medicine 07/26/23 documented as of this encounter
--- NOTE | 2024-10-07 18:03 | ECG_ITS ---
The [facility] Test Date: 2024-10-07 Pat Name: JAIME BURTON Department: Room: - Gender: Female Surveillance Sensor Operator: : 1975 Requested By: [id number] Order Number: [id number] Reading MD: FRANCHESCA GEIGER Measurements Intervals [place] Rate: 142 P: 80 [place]: 138 QRS: 84 QRSD: 68 T: 75 QT: 288 QTc: 370 Interpretive Statements 1120 Sinus tachycardia 9140 abnormal rhythm ECG Compared to ECG 09/15/2024 17:35:02 No significant changes Electronically Signed On 10-10-2024 9:45:42 EDT by FRANCHESCA GEIGER
--- NOTE | 2024-10-07 18:03 | CT_ITS ---
The [place] [id number] Patient Name: JAIME BURTON MRN: [id number] date: 1975 Sex: F Assigned Patient Location: ER Current Patient Location: [facility] Accession/Order Number: [id number] Exam Date: 10/07/2024 18:52 Report Date: 10/07/2024 18:55 At the request of: GENET NAM MD Procedure: CT head/brain wo con CT head/brain wo con 10/07/2024 6:36 PM SIGNS AND SYMPTOMS: Weakness TECHNIQUE:Multi-detector CT axial slices of the brain were obtained without IV contrast. CT was performed with one or more of the following dose reduction techniques: Automated exposure control, adjustment of the mA and/or kV according to patient size, or use of iterative reconstruction technique. COMPARISON: 09/16/2024 FINDINGS: There is no shift of the midline structures, acute intracranial bleeding, mass effects, or evidence of acute ischemia. Mild atherosclerotic changes are noted in the V4 segment of the left vertebral artery and intracranial segments of the left internal carotid artery. The ventricular system is normal in size. The brainstem and the cerebellum are unremarkable. The visualized intraorbital contents, the visualized paranasal sinuses, and the infratemporal soft tissues show no acute abnormality. The osseous structures in the skull base and the calvarium show no abnormality. CT/CT head/brain wo con IMPRESSION: No acute intracranial pathology. Impression dictated by: Seven Wheatley M.D. 10/07/2024 6:55 PM Dictation Location: [place] [address] Electronically authenticated by: [id number] Y Date: 10/07/2024 18:55
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
[2024-10-07 18:27] LABS: Hematocrit 26.0 % (36.0-48.0); Hemoglobin 8.0 g/dL (12.0-16.0); Mean Corpuscular HGB Conc 30.8 g/dL (29.9-35.2); Mean Corpuscular Hemoglobin 25.8 pg (26.7-34.0); Mean Corpuscular Volume 83.9 fL (81.0-99.0); Platelet Count 931 10^3/uL (150-450); Red Blood Count 3.10 10^6/uL (4.20-5.40); White Blood Count 27.0 10^3/uL (4.0-11.0)
[2024-10-07] MEDS: 0.9 % SODIUM CHLORIDE 1,000 ML 1000 ML IV ×2 (18:30→19:57)
[2024-10-07 18:34] LABS: Glucose Urine UA NEGATIVE (NEGATIVE)
--- NOTE | 2024-10-07 18:35 | PC.NURSE ---
straight catheter done for urine collection, pt tolerted well
[2024-10-07 18:40] LABS: Cannabinoid Screen Urine POSITIVE (NEGATIVE); Methamphetamines Screen Urine NEGATIVE (NEGATIVE); Tricyclic Antidepressant Urine NEGATIVE (NEGATIVE)
[2024-10-07 18:45] LABS: Anion Gap 15.5; Blood Urea Nitrogen 11.0 mg/dL (7.0-18.0); Calcium 10.0 mg/dL (8.5-10.1); Carbon Dioxide 27.8 mmol/L (21.0-32.0); Chloride 93 mmol/L (98-107); Estimated GFR (African America >60 (>=60 mL/min/1.73m^2); Estimated GFR (Non-African Ame >60 (>=60 mL/min/1.73m^2); Glucose 100 mg/dL (74-106); Lactate/Lactic Acid 0.8 mmol/L (0.4-2.0); Potassium 4.3 mmol/L (3.5-5.1); Sodium 132 mmol/L (136-145)
[2024-10-07 18:47] LABS: Basophils Abs Manual 0.27 10^3/uL (0.00-0.10); Basophils Percent Manual 1.0 % (0.2-2.0); Eosinophils Absolute Manual 0.00 10^3/uL (0.00-0.70); Eosinophils Percent Manual 0.0 % (0.9-7.0); Lymphocytes Absolute Manual 2.43 10^3/uL (1.20-3.80); Lymphocytes Percent Manual 9.0 % (20.5-60.0); Monocytes Absolute Manual 2.97 10^3/uL (0.30-0.80); Monocytes Percent Manual 11.0 % (1.7-12.0); Segmented Neut Absolute Manual 21.33 10^3/uL (1.4-6.5); Segmented Neutrophils % Manual 79.0 (43.0-75.0)
[2024-10-07 18:54] LABS: Cast Seen? NONE SEEN #/LPF (NONE SEEN); Crystals Seen? None Seen #/HPF (None Seen); Urine Culture Indicated NO
[2024-10-07 19:13] LABS: Alanine Aminotransferase 42 U/L (14-59); Albumin Globulin Ratio 0.2; Albumin Level 1.5 g/dL (3.4-5.0); Alkaline Phosphatase 696 U/L (46-116); Aspartate Amino Transferase 38 U/L (15-37); Globulin 6.8 g/dL; Total Protein 8.3 g/dL (6.4-8.2)
[2024-10-07 19:45] LABS: NT Pro B Type Natriuretic Pept 963.0 pg/mL (<=900.0)
--- NOTE | 2024-10-07 20:05 | CT_ITS ---
The [address] [address] Patient Name: JAIME BURTON MRN: [id number] date: 1975 Sex: F Assigned Patient Location: ER Current Patient Location: ER Accession/Order Number: [id number] Exam Date: 10/07/2024 20:53 Report Date: 10/07/2024 21:13 At the request of: ARACELI JONAS MD Procedure: CT angio chest CT angio chest 10/07/2024 8:36 PM SIGN AND SYMPTOMS: Tachycardia, elevated d-dimer CONTRAST: 100 mL of intravenous Omnipaque 350 TECHNIQUE: Multidetector CT axial slices of the chest were obtained with IV contrast. Multiplanar reformats were performed and viewed on a separate workstation and reviewed to further define anatomy and possible pathology. CT was performed with one or more of the following dose reduction techniques: Automated exposure control, adjustment of the mA and/or kV according to patient size, or use of iterative reconstruction technique. COMPARISON: 09/16/2024. FINDINGS: Lower neck: Left supraclavicular lymphadenopathy is redemonstrated with the largest lymph node measuring 1.3 cm in short axis. Vessels: No evidence of pulmonary embolism. Mediastinum and Fabi: Mediastinal adenopathy is noted with the largest measuring 1.2 cm in short axis in the aortopulmonary window. Heart: Normal size. No pericardial effusion. Airways: Within normal limits Lungs: There is a 1.3 cm soft tissue attenuating nodule within the left upper lobe laterally similar to the prior exam. Pleura: Within normal limits. Chest Wall: Axillary lymphadenopathy is noted with the largest measuring 1.5 cm in short axis on the right and 9 mm in short axis on the left. Upper Abdomen: Retroperitoneal lymphadenopathy is partially visualized. Bones: There is a remote compression deformity at L1. CT/CT angio chest IMPRESSION: No evidence of pulmonary embolism. Similar axillary, supraclavicular, mediastinal, and retroperitoneal lymphadenopathy. There is a similar 1.3 cm soft tissue attenuating nodule in the left upper lobe laterally. These findings may be metastatic in nature or secondary to a lymphoproliferative process. Impression dictated by: Seven Wheatley M.D. 10/07/2024 9:13 PM Dictation Location: [place] [address] Electronically authenticated by: [id number] Y Date: 10/07/2024 21:13
[2024-10-07] MEDS: FENTANYL CITRATE/PF 100 MCG/2 ML VIAL 25 MCG IV (21:19)
[2024-10-07] MEDS: KETOROLAC TROMETHAMINE 30 MG/ML VIAL 15 MG IVP (21:20)
[2024-10-07] MEDS: METOPROLOL TARTRATE 5 MG/5 ML VIAL IVP (21:45)
--- NOTE | 2024-10-07 21:58 | ECG_ITS ---
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
--- NOTE | 2024-10-07 22:36 | PC.NURSE ---
Airborne precautions continued. Pt is a poor historian--she is unable to provide complete medication information.
[2024-10-08] VITALS (13 sets, daily range): BP systolic 116–155; BP diastolic 74–87; PULSE 98–165; TEMP 35.9–39.2; O2SAT 91–97
[2024-10-08] MEDS: 0.9 % SODIUM CHLORIDE 1,000 ML 125 ML IV (01:19)
[2024-10-08] MEDS: OXYCODONE HCL 5 MG TABLET PO ×2 (03:39→08:20)
[2024-10-08] MEDS: ACETAMINOPHEN 325 MG TABLET 650 MG PO (03:39)
--- NOTE | 2024-10-08 04:20 | CT_ITS ---
The [address] [address] Patient Name: JAIME BURTON MRN: [id number] date: 1975 Sex: F Assigned Patient Location: Current Patient Location: Accession/Order Number: [id number] Exam Date: 10/08/2024 08:22 Report Date: 10/08/2024 08:38 At the request of: MALIK HERNANDEZ MD Procedure: CT abdomen pelvis w con CT ABDOMEN AND PELVIS WITH CONTRAST CLINICAL DATA: Sepsis COMPARISON: 09/21/2024 Spiral images were obtained through the abdomen and pelvis following oral and 100 mL of hand injected Omnipaque 300. This CT exam was performed using one or more following dose reduction techniques: Automated exposure control, adjustment of the mA and/or kV according to patient size, or use of iterative reconstruction technique. Limited cuts through the lung bases show minor atelectasis or scarring. There is a tiny hiatal hernia. The gallbladder surgically absent. There is mild common duct prominence, without evidence of choledocholithiasis. No intrahepatic masses are noted. The spleen and pancreas show no acute findings. There is mild adrenal limb thickening. The renal nephrograms are symmetric. No hydronephrosis is present. There are tiny renal cysts. There is also an ill-defined hypodensity at the superior pole on the left measuring almost 15 mm in size. This appears different than the prior though there is also difference in phase of nephrogram due to hand bolus on the current study. No hydronephrosis is identified. There is mild atherosclerotic plaque involving the aorta and iliac arteries. Multiple prominent retroperitoneal lymph nodes are again seen. There is no ascites. There is no dilated small bowel. There is air and stool within the colon, greater on the right. There is slight levoscoliotic curvature and mild degenerative changes at the spine. Mild wedge deformity at L1 was present on the comparison. Images through the pelvis show no dilated small bowel. The appendix is surgically absent. There is stool at the cecum. Minimal stool is present at the distal colon and moderate air at the rectum. No diverticular disease is noted. Essure sterilization inserts are visualized. There is still a 2 cm left ovarian cyst. The urinary bladder shows no obvious abnormalities for the degree of distention. There is a trace amount of dependent free pelvic fluid. CT/CT abdomen pelvis w con IMPRESSION: TINY HIATAL HERNIA. NO BOWEL OR URINARY TRACT OBSTRUCTION. RENAL CYSTS. INDETERMINANT LEFT RENAL HYPODENSITY, DIFFERENT THAN THE COMPARISON. INFECTION IS NOT EXCLUDED. CLINICAL CORRELATION IS RECOMMENDED. CONTINUED ABDOMINAL LYMPHADENOPATHY. SMALL LEFT OVARIAN CYST. TRACE AMOUNT OF FREE PELVIC FLUID. THIS MAY BE PHYSIOLOGIC. Impression dictated by: Iraida Bach M.D. 10/08/2024 8:38 AM Dictation Location: [place] [address] Electronically authenticated by: [id number] Y Date: 10/08/2024 08:38
[2024-10-08] MEDS: METOPROLOL TARTRATE 50 MG TABLET PO ×2 (04:48→08:13)
[2024-10-08] MEDS: PIPERACILLIN SODIUM/TAZOBACTAM 3.375 GM in 0.9 % SODIUM CHLORIDE 50 ML IV ×2 (05:14→10:31)
[2024-10-08] MEDS: VANCOMYCIN HCL 1,000 MG in 0.9 % SODIUM CHLORIDE 250 ML 250 MG IV ×2 (05:16→09:22)
[2024-10-08 05:28] LABS: Hemoglobin 7.1 g/dL (12.0-16.0); Immature Granulocytes Abs Auto 0.50 10^3/uL (0.00-0.03); Immature Granulocytes Pct Auto 2.3 % (0.0-0.5); Lymphocytes Absolute Auto 2.1 10^3/uL (1.2-3.8); Mean Corpuscular HGB Conc 30.5 g/dL (29.9-35.2); Mean Corpuscular Hemoglobin 25.8 pg (26.7-34.0); Mean Corpuscular Volume 84.7 fL (81.0-99.0); Platelet Count 870 10^3/uL (150-450); Red Blood Count 2.75 10^6/uL (4.20-5.40); White Blood Count 22.2 10^3/uL (4.0-11.0)
[2024-10-08 05:41] LABS: SARS-CoV-2 Ag NEGATIVE (NEGATIVE)
[2024-10-08 05:46] LABS: Creatine Kinase 10 U/L (26-192)
[2024-10-08 05:47] LABS: Alanine Aminotransferase 36 U/L (14-59); Albumin Globulin Ratio 0.2; Albumin Level 1.3 g/dL (3.4-5.0); Alkaline Phosphatase 585 U/L (46-116); Anion Gap 18.6; Aspartate Amino Transferase 34 U/L (15-37); Blood Urea Nitrogen 11.0 mg/dL (7.0-18.0); Calcium 9.1 mg/dL (8.5-10.1); Carbon Dioxide 23.9 mmol/L (21.0-32.0); Chloride 101 mmol/L (98-107); Estimated GFR (African America >60 (>=60 mL/min/1.73m^2); Estimated GFR (Non-African Ame >60 (>=60 mL/min/1.73m^2); Globulin 5.9 g/dL; Glucose 88 mg/dL (74-106); INR 1.31; Lactate/Lactic Acid 0.5 mmol/L (0.4-2.0); Magnesium 2.0 mg/dL (1.8-2.4); Partial Thromboplastin Time 33.7 sec (22.3-36.2); Potassium 3.5 mmol/L (3.5-5.1); Prothrombin Time 13.5 sec (9.0-11.6); Sodium 140 mmol/L (136-145); Total Protein 7.2 g/dL (6.4-8.2)
[2024-10-08 06:05] LABS: Hematocrit 23.3 % (36.0-48.0)
[2024-10-08] MEDS: ENOXAPARIN SODIUM 40 MG/0.4 ML SYRINGE SUBQ (08:13)
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
--- NOTE | 2024-10-08 09:07 | PM.DS1 ---
DS: Providers Provider Date of admission: 10/07/24 23:00 Primary care physician: Nakul Swenson MD DS: Diagnosis Discharge Diagnosis (1) Tachycardia: (2) Myeloproliferative disease: (3) Lymphadenopathy: (4) Splenic lesion: (5) Hepatomegaly: (6) Fever: (7) Weight loss: (8) Anemia: Plan As listed above and others that are not listed DS: Summary Hospital Course Hospital Course: Mrs. Merrill is a 49-year-old female who came in with fatigue, weakness not feeling well Anemia status post RBC transfusion 2 weeks ago Extensive lymphadenopathy seen on CT chest and abdomen Hepatomegaly, splenic lesion Leukocytosis, thrombocytosis I suspect that the patient has hematological malignancy. Could be myeloproliferative disorder. Could be in the acute phase that may require urgent oncological care Requested HIV rule out AIDS Patient was supposed to follow-up with oncology in [place] but her appointment had been canceled I discussed options with the patient and her mom. My recommendation is to transfer her to [facility] to be seen by [facility] oncology team. Likely will need to have additional urgent semi urgent oncological investigation and treatment. Fever and tachycardia This could be related to myeloproliferative disorder I could not exclude the possibility of underlying sepsis Patient is awake, coherent, supple neck, no clinical evidence to suggest WELDER TACK infection No respiratory symptoms other than cough. CT chest does not show any infiltration CT abdomen does not show per se any acute infectious process I started patient empirically on Zosyn and vancomycin pending culture report Prior to that the patient was started on ceftriaxone then switched to Zosyn and vancomycin when she spiked temperature overnight I requested influenza and COVID that came back negative I requested HIV which is still pending. Continue beta-jaylyn for tachycardia Patient will be transferred to [facility] to be seen by ID team. Continue empiric antibiotic at this time. HIV is pending Lung nodule seen on recent CT chest This will need further investigation, to be seen by oncology at [facility]. Questionable renal hypodensity This will need to be investigated further by oncology at [place]. Hypertension Continue beta-jaylyn Recent pertussis infection Symptomatic treatment. Chronic medical conditions not listed above, incidental findings seen on labs and imaging. These would need to be addressed. Could be addressed when time and condition are appropriate. Could be addressed in the outpatient setting by PCP collaboration with other needed outpatient providers. Patient 's status is dynamic and evolutionary therefore the aforementioned assessment and plan may or may not be complete or conclusive. The patient will require to have additional workup, investigation and therapeutic intervention that will be determined based on the clinical progression and follow-up test result. Once again the plan is to transfer to [facility] to be seen by oncology and infectious disease team. Time Spent with Patient Time attestation: Total time spent providing and/or coordinating discharge services: Exam Constitutional Vital Signs, click to edit/add: Last Vital Signs Temp 98.1 F 10/08/24 08:20 Pulse 100 H 10/08/24 08:20 Resp 18 10/08/24 08:20 BP 132/83 10/08/24 08:20 Pulse Ox 91 L 10/08/24 08:20 O2 Del Method Room Air 10/08/24 08:20 DS: Data Data Completed and Pending Labs on day of discharge: Labs from last 24 hours 10/08/24 10/08/24 10/07/24 05:14 05:06 19:35 WBC 22.2 H RBC 2.75 L Hgb 7.1 L Hct 23.3 L* MCV 84.7 MCH 25.8 L MCHC 30.5 RDW 21.0 H Plt Count 870 H MPV 8.3 L Neut % (Auto) 75.2 H Lymph % (Auto) 9.6 L [place] % (Auto) 12.7 H Eos % (Auto) 0.1 L Baso % (Auto) 0.1 L Neut # (Auto) 16.7 H Lymph # (Auto) 2.1 [place] # (Auto) 2.8 H Eos # (Auto) 0.0 Baso # (Auto) 0.0 Abs Immat Gran (auto) 0.50 H Seg Neuts % (Manual) Lymphocytes % (Manual) Monocytes % (Manual) Eosinophils % (Manual) Basophils % (Manual) Imm/Tot Granulo (auto) 2.3 H Neutrophils # (Manual) Lymphocytes # (Manual) Monocytes # (Manual) Eosinophils # (Manual) Basophils # (Manual) PT 13.5 H INR 1.31 APTT 33.7 D-Dimer 0.59 Sodium 140 Potassium 3.5 Chloride 101 Carbon Dioxide 23.9 Anion Gap 18.6 BUN 11.0 Creatinine 0.40 L Est GFR ( Amer) >60 Est GFR (Non-Af Amer) >60 BUN/Creatinine Ratio 27.5 Glucose 88 Lactate 0.5 Calcium 9.1 Phosphorus 3.9 Magnesium 2.0 Total Bilirubin 0.7 Direct Bilirubin AST 34 ALT 36 Alkaline Phosphatase 585 H Total Creatine Kinase 10 L Troponin I High Sens NT-Pro-B Natriuret Pep Total Protein 7.2 Albumin 1.3 L Globulin 5.9 Albumin/Globulin Ratio 0.2 Serum HCG, Qual Urine Color Urine Clarity Urine pH Ur Specific [place] Urine Protein Urine Glucose (UA) Urine Ketones Urine Occult Blood Urine Nitrite Urine Bilirubin Urine Urobilinogen Ur Leukocyte Esterase Urine RBC Urine WBC Ur Squamous Epith Cells Urine Crystals Urine Bacteria Urine Casts Urine Mucus Ur Culture Indicated? Urine Opiates Screen Ur Buprenorphine Scrn Ur Oxycodone Screen Urine Methadone Screen Ur Barbiturates Screen U Tricyclic Antidepress Ur Phencyclidine Scrn Ur Amphetamines Screen U Methamphetamines Scrn U Benzodiazepines Scrn Urine Cocaine Screen U Cannabinoids Screen Influenza Type A Ag Negative Influenza Type B Ag Negative SARS-CoV-2 Ag (CV2AG) Negative 10/07/24 10/07/24 18:20 18:10 WBC 27.0 H RBC 3.10 L Hgb 8.0 L Hct 26.0 L MCV 83.9 MCH 25.8 L MCHC 30.8 RDW 21.0 H Plt Count 931 H MPV 8.4 L Neut % (Auto) Lymph % (Auto) [place] % (Auto) Eos % (Auto) Baso % (Auto) Neut # (Auto) Lymph # (Auto) [place] # (Auto) Eos # (Auto) Baso # (Auto) Abs Immat Gran (auto) Seg Neuts % (Manual) 79.0 H Lymphocytes % (Manual) 9.0 L Monocytes % (Manual) 11.0 Eosinophils % (Manual) 0.0 L Basophils % (Manual) 1.0 Imm/Tot Granulo (auto) Neutrophils # (Manual) 21.33 H Lymphocytes # (Manual) 2.43 Monocytes # (Manual) 2.97 H Eosinophils # (Manual) 0.00 Basophils # (Manual) 0.27 H PT INR APTT D-Dimer Sodium 132 L Potassium 4.3 Chloride 93 L Carbon Dioxide 27.8 Anion Gap 15.5 BUN 11.0 Creatinine 0.55 Est GFR ( Amer) >60 Est GFR (Non-Af Amer) >60 BUN/Creatinine Ratio 20.0 Glucose 100 Lactate 0.8 Calcium 10.0 Phosphorus Magnesium Total Bilirubin 0.9 Direct Bilirubin 0.5 H AST 38 H ALT 42 Alkaline Phosphatase 696 H Total Creatine Kinase Troponin I High Sens <4.0 L NT-Pro-B Natriuret Pep 963.0 H Total Protein 8.3 H Albumin 1.5 L Globulin 6.8 Albumin/Globulin Ratio 0.2 Serum HCG, Qual Negative Urine Color Dk. orange Urine Clarity Clear Urine pH 6.0 Ur Specific [place] 1.020 Urine Protein 30 A Urine Glucose (UA) Negative Urine Ketones >=80 A Urine Occult Blood Small A Urine Nitrite Negative Urine Bilirubin Moderate A Urine Urobilinogen 2.0 A Ur Leukocyte Esterase Negative Urine RBC 0-2 Urine WBC 0-2 A Ur Squamous Epith Cells Few A Urine Crystals None seen Urine Bacteria Trace A Urine Casts None seen Urine Mucus Trace A Ur Culture Indicated? No Urine Opiates Screen Negative Ur Buprenorphine Scrn Negative Ur Oxycodone Screen Negative Urine Methadone Screen Negative Ur Barbiturates Screen Negative U Tricyclic Antidepress Negative Ur Phencyclidine Scrn Negative Ur Amphetamines Screen Negative U Methamphetamines Scrn Negative U Benzodiazepines Scrn Negative Urine Cocaine Screen Negative U Cannabinoids Screen Positive A Influenza Type A Ag Influenza Type B Ag SARS-CoV-2 Ag (CV2AG) Discharge Plan Discharge Disposition: Xfer Acute Care Hospital Condition: Fair
[2024-10-08] MEDS: CODEINE 10 MG/GUAIFENESIN 100 MG 5 ML ORAL SYRINGE 10 ML PO (09:22)
[2024-10-08] MEDS: 0.9 % SODIUM CHLORIDE 1,000 ML 250 ML IV (09:29)
--- NOTE | 2024-10-08 09:35 | CM.NOTE ---
Rounds made with Dr. Javed. Will work with [facility] for potential transfer. Rylee acknowledges needs is fine with transfer to [facility].
--- NOTE | 2024-10-08 12:04 | CM.NOTE ---
Call made to [facility] for transfer to [facility]. Accepting physician Dr. Garcia. Spoke to Devon at [facility] and he is working on finding a bed for Rylee. Telephone number given to call when bed assigned.
--- NOTE | 2024-10-08 14:45 | NUTR.NU ---
Pt was admitted 10/07/24 2306 and transferred to acute [facility] hospital 10/08/24 1331 d/t decline in condition. Nutrition assessment and diet education completed during previous [facility] stay 09/15/24-09/21/24. Since then, pt has lost a significant amount of weight, 4.4 kg/8.2% x 3 weeks, likely d/t inadequate nutrient intakes. She is currently underweight per BMI 17.5. No PO intakes of regular diet noted during current hospitalization. Abnormal labs drawn 10/08/24 indicate infection, anemia, thrombocytosis, inflammation, loss of muscle mass. Elevated BNP indicates impaired cardiac function; high alkaline phosphatase level suggests liver and/or bone disease. Pt meets criteria for severe malnutrition. Further nutritional care to be handled by staff at receiving facility.?
== END 2024-10-08 13:07 | disposition short-term general hospital (02) ==
LOC: ER 22:31 → MS 10-08 06:15
PROVIDERS: Emergency Medicine; Admitting Provider Internal Medicine; Emergency Provider Emergency Medicine; PCP Family Medicine; Visit Provider Internal Medicine
DX: D47.1 Chronic myeloproliferative disease (principal); R00.0 Tachycardia, unspecified; D72.829 Elevated white blood cell count, unspecified; R59.0 Localized enlarged lymph nodes; F17.200 Nicotine dependence, unspecified, uncomplicated; R50.9 Fever, unspecified; D64.9 Anemia, unspecified; R63.4 Abnormal weight loss; R16.0 Hepatomegaly, not elsewhere classified; D73.9 Disease of spleen, unspecified; D75.839 Thrombocytosis, unspecified; R91.1 Solitary pulmonary nodule; I10 Essential (primary) hypertension; R53.1 Weakness; R53.83 Other fatigue; Z90.49 Acquired absence of other specified parts of digestive tract; Z68.1 Body mass index [BMI] 19.9 or less, adult
CPT/HCPCS: 36415; 70450; 71275; 74177; 80048; 80053; 80074; 80076; 80307; 81001; 82550; 83605; 83735; 83880; 84100; 84484; 84703; 85007; 85025; 85027; 85378; 85610; 85730; 87040; 87389; 87804; 87811; 93005; 94761; 96365; 96366; 96367; 96368; 96372; 96375; 99285; 99406; G0378; J0696; J1650; J1885; J2543; J3010; J3370; Q9966; Q9967

== ENCOUNTER 2024-10-20 11:44 | Outpatient (RCR) | payer BC, SELFPAY ==
[2024-10-20 12:38] LABS: Hematocrit 31.5 % (36.0-48.0); Hemoglobin 9.8 g/dL (12.0-16.0); Immature Granulocytes Abs Auto 0.18 10^3/uL (0.00-0.03); Immature Granulocytes Pct Auto 1.2 % (0.0-0.5); Lymphocytes Absolute Auto 2.0 10^3/uL (1.2-3.8); Mean Corpuscular HGB Conc 31.1 g/dL (29.9-35.2); Mean Corpuscular Hemoglobin 27.0 pg (26.7-34.0); Mean Corpuscular Volume 86.8 fL (81.0-99.0); Red Blood Count 3.63 10^6/uL (4.20-5.40); White Blood Count 15.4 10^3/uL (4.0-11.0)
[2024-10-20 12:51] LABS: Platelet Count 1141 10^3/uL (150-450)
[2024-10-20 13:01] LABS: Alanine Aminotransferase 11 U/L (14-59); Albumin Globulin Ratio 0.2; Albumin Level 1.4 g/dL (3.4-5.0); Alkaline Phosphatase 564 U/L (46-116); Anion Gap 19.8; Aspartate Amino Transferase 14 U/L (15-37); Blood Urea Nitrogen 16.0 mg/dL (7.0-18.0); Calcium 9.2 mg/dL (8.5-10.1); Carbon Dioxide 26.7 mmol/L (21.0-32.0); Chloride 94 mmol/L (98-107); Estimated GFR (African America 48 (>=60 mL/min/1.73m^2); Estimated GFR (Non-African Ame 39 (>=60 mL/min/1.73m^2); Globulin 6.5 g/dL; Glucose 92 mg/dL (74-106); Sodium 138 mmol/L (136-145); Total Protein 7.9 g/dL (6.4-8.2)
[2024-10-20 13:26] LABS: Potassium 2.5 mmol/L (3.5-5.1)
== END 2024-10-23 17:04 | disposition home or self-care (01) ==
LOC: LAB 11:44
PROVIDERS: PCP Family Medicine; Visit Provider Family Medicine
DX: Z51.81 Encounter for therapeutic drug level monitoring (principal); J20.9 Acute bronchitis, unspecified; D64.9 Anemia, unspecified
CPT/HCPCS: 36415; 80053

== ENCOUNTER 2024-10-23 17:06 | Outpatient (RCR) | payer BC, SELFPAY | END 2024-10-23 17:06 | disposition home or self-care (01) | LOC: LAB 17:06 | PROVIDERS: PCP Family Medicine; Visit Provider Family Medicine | DX: Z51.81 Encounter for therapeutic drug level monitoring (principal); D64.9 Anemia, unspecified ==

== ENCOUNTER 2024-10-27 11:05 | Outpatient (RCR) | payer BC, SELFPAY ==
[2024-10-27 11:26] LABS: Hematocrit 29.2 % (36.0-48.0); Hemoglobin 8.7 g/dL (12.0-16.0); Mean Corpuscular HGB Conc 29.8 g/dL (29.9-35.2); Mean Corpuscular Hemoglobin 27.4 pg (26.7-34.0); Mean Corpuscular Volume 92.1 fL (81.0-99.0); Platelet Count 718 10^3/uL (150-450); Red Blood Count 3.17 10^6/uL (4.20-5.40); White Blood Count 17.3 10^3/uL (4.0-11.0)
[2024-10-27 11:54] LABS: Basophils Abs Manual 0.00 10^3/uL (0.00-0.10); Basophils Percent Manual 0.0 % (0.2-2.0); Eosinophils Absolute Manual 0.17 10^3/uL (0.00-0.70); Eosinophils Percent Manual 1.0 % (0.9-7.0); Lymphocytes Absolute Manual 2.24 10^3/uL (1.20-3.80); Lymphocytes Percent Manual 13.0 % (20.5-60.0); Monocytes Absolute Manual 1.55 10^3/uL (0.30-0.80); Monocytes Percent Manual 9.0 % (1.7-12.0); Segmented Neut Absolute Manual 13.32 10^3/uL (1.4-6.5); Segmented Neutrophils % Manual 77.0 (43.0-75.0)
[2024-10-27 12:11] LABS: Alanine Aminotransferase 39 U/L (14-59); Albumin Globulin Ratio 0.2; Albumin Level 1.6 g/dL (3.4-5.0); Alkaline Phosphatase 870 U/L (46-116); Anion Gap 17.0; Aspartate Amino Transferase 67 U/L (15-37); Blood Urea Nitrogen 13.0 mg/dL (7.0-18.0); Calcium 10.0 mg/dL (8.5-10.1); Carbon Dioxide 26.4 mmol/L (21.0-32.0); Chloride 97 mmol/L (98-107); Estimated GFR (African America >60 (>=60 mL/min/1.73m^2); Estimated GFR (Non-African Ame >60 (>=60 mL/min/1.73m^2); Globulin 7.3 g/dL; Glucose 111 mg/dL (74-106); Potassium 3.4 mmol/L (3.5-5.1); Sodium 137 mmol/L (136-145); Total Protein 8.9 g/dL (6.4-8.2)
[2024-10-31 11:56] LABS: Hematocrit 24.7 % (36.0-48.0); Hemoglobin 7.2 g/dL (12.0-16.0); Immature Granulocytes Abs Auto 0.17 10^3/uL (0.00-0.03); Immature Granulocytes Pct Auto 1.1 % (0.0-0.5); Lymphocytes Absolute Auto 4.0 10^3/uL (1.2-3.8); Mean Corpuscular HGB Conc 29.1 g/dL (29.9-35.2); Mean Corpuscular Hemoglobin 27.6 pg (26.7-34.0); Mean Corpuscular Volume 94.6 fL (81.0-99.0); Platelet Count 710 10^3/uL (150-450); Red Blood Count 2.61 10^6/uL (4.20-5.40); White Blood Count 15.5 10^3/uL (4.0-11.0)
[2024-10-31 12:20] LABS: Alanine Aminotransferase 42 U/L (14-59); Albumin Globulin Ratio 0.2; Albumin Level 1.6 g/dL (3.4-5.0); Alkaline Phosphatase 855 U/L (46-116); Anion Gap 18.8; Aspartate Amino Transferase 42 U/L (15-37); Blood Urea Nitrogen 15.0 mg/dL (7.0-18.0); Calcium 10.6 mg/dL (8.5-10.1); Carbon Dioxide 24.5 mmol/L (21.0-32.0); Chloride 98 mmol/L (98-107); Estimated GFR (African America >60 (>=60 mL/min/1.73m^2); Estimated GFR (Non-African Ame >60 (>=60 mL/min/1.73m^2); Globulin 7.3 g/dL; Glucose 116 mg/dL (74-106); Potassium 4.3 mmol/L (3.5-5.1); Sodium 137 mmol/L (136-145); Total Protein 8.9 g/dL (6.4-8.2)
== END 2024-11-22 23:59 | disposition home or self-care (01) ==
LOC: LAB 11:05
PROVIDERS: PCP Family Medicine; Visit Provider Family Medicine
DX: D64.9 Anemia, unspecified (principal); R53.1 Weakness
CPT/HCPCS: 36415; 80053; 85007; 85025; 85027

== ENCOUNTER 2024-11-05 07:23 | Outpatient (RCR) | payer BC, SELFPAY ==
[2024-11-05] VITALS (10 sets, daily range): BP systolic 96–131; BP diastolic 61–83; PULSE 110–130; TEMP 36.3–36.8; O2SAT 96–99
[2024-11-05 07:44] LABS: Hemoglobin 7.0 g/dL (12.0-16.0); Immature Granulocytes Abs Auto 0.10 10^3/uL (0.00-0.03); Immature Granulocytes Pct Auto 0.8 % (0.0-0.5); Lymphocytes Absolute Auto 2.8 10^3/uL (1.2-3.8); Mean Corpuscular HGB Conc 29.9 g/dL (29.9-35.2); Mean Corpuscular Hemoglobin 27.9 pg (26.7-34.0); Mean Corpuscular Volume 93.2 fL (81.0-99.0); Platelet Count 759 10^3/uL (150-450); Red Blood Count 2.51 10^6/uL (4.20-5.40); White Blood Count 11.9 10^3/uL (4.0-11.0)
[2024-11-05 08:07] LABS: Hematocrit 23.4 % (36.0-48.0)
== END 2024-11-20 15:17 | disposition home or self-care (01) ==
LOC: LAB 07:23
PROVIDERS: PCP Family Medicine; Visit Provider Family Medicine
DX: Z51.81 Encounter for therapeutic drug level monitoring (principal); D64.9 Anemia, unspecified; Z79.01 Long term (current) use of anticoagulants
CPT/HCPCS: 36415; 36430; 85025; 86850; 86900; 86901; 86923; P9016

== ENCOUNTER 2024-11-13 14:07 | Outpatient (OUT) | payer BC, SELFPAY ==
[2024-11-13 14:57] LABS: Alanine Aminotransferase 31 U/L (14-59); Albumin Globulin Ratio 0.2; Albumin Level 1.4 g/dL (3.4-5.0); Alkaline Phosphatase 895 U/L (46-116); Anion Gap 12.7; Aspartate Amino Transferase 37 U/L (15-37); Blood Urea Nitrogen 15.0 mg/dL (7.0-18.0); Calcium 9.9 mg/dL (8.5-10.1); Carbon Dioxide 25.0 mmol/L (21.0-32.0); Chloride 101 mmol/L (98-107); Estimated GFR (African America >60 (>=60 mL/min/1.73m^2); Estimated GFR (Non-African Ame >60 (>=60 mL/min/1.73m^2); Globulin 7.0 g/dL; Glucose 129 mg/dL (74-106); Potassium 3.7 mmol/L (3.5-5.1); Sodium 135 mmol/L (136-145); Total Protein 8.4 g/dL (6.4-8.2)
[2024-11-13 14:58] LABS: Hematocrit 25.5 % (36.0-48.0); Hemoglobin 7.5 g/dL (12.0-16.0); Immature Granulocytes Abs Auto 0.19 10^3/uL (0.00-0.03); Immature Granulocytes Pct Auto 1.2 % (0.0-0.5); Lymphocytes Absolute Auto 2.0 10^3/uL (1.2-3.8); Mean Corpuscular HGB Conc 29.4 g/dL (29.9-35.2); Mean Corpuscular Hemoglobin 26.9 pg (26.7-34.0); Mean Corpuscular Volume 91.4 fL (81.0-99.0); Platelet Count 671 10^3/uL (150-450); Red Blood Count 2.79 10^6/uL (4.20-5.40); White Blood Count 16.1 10^3/uL (4.0-11.0)
== END 2024-11-13 14:08 | disposition home or self-care (01) ==
LOC: LAB 14:07
PROVIDERS: PCP Family Medicine
DX: D47.1 Chronic myeloproliferative disease (principal); D47.3 Essential (hemorrhagic) thrombocythemia; D75.839 Thrombocytosis, unspecified
CPT/HCPCS: 36415; 80053; 85025

== ENCOUNTER 2024-11-18 11:04 | Outpatient (OUT) | payer BC, SELFPAY ==
--- OUTSIDE RECORDS SUMMARY | 2024-08-15 03:51 | XMS_ITS | Continuity of Care Document ---
Author Organization [facility] Address [address] [place] [address] Phone Care Team Providers Care Housecleaner Floor Name Role Phone Dylan Vincent DDS Unavailable [...] 1st Film Nutrit Couns For Control Of [place] Dis July Comp Oral Eval New/estab Patient 2024 Comp Oral Eval New/estab Patient 2024 Extract; Erupted Th/exposted Rt 025 Oral Hygiene Instruction Intraoral-periapical 1st Film Bitewig-single Film Limited Oral Eval Oral Hygiene Instruction COVID-19 Antigen Test Nutrit Couns For Control Of [place] Dis Apr Post Op Visit Dental Post [...] 3s; Posterior Nutrit Couns For Control Of [place] Dis Mar Resin Composite 4+s; Posterior Oral [...] Diagnoses Date Provider Providers Copied on Encounter [facility], [address] [place], [place], [id number], [place] tel:[phone] [facility] Dental Clinic dn (chief complaint) Encounter for screening for dental disorders 5 Vincent DDS Yixue. [address] [place], [address], [place]. tel:[phone] [facility], [address] [place] [address], [id number], [place] tel:[phone] [facility] Dental Clinic ext (chief complaint) Encounter for screening for dental disorders 5 Vincent DDS Yixue. [address] [place] [address], [id number], [place]. tel:[phone] [facility], [address] [place] [address], [id number], [place] tel:[phone] [facility] Dental Clinic er (chief complaint) Encounter for screening for dental disorders 5 Vincent DDS Yixue. [address] [place] [address], [address], [place]. tel:[phone] [facility], [address] [place] [address], [id number], [place] tel:[phone] Dental Clinic POV (chief complaint) Encounter for screening for COVID-19Encounter for screening for dental disorders 2 José Luis Ayoub. [address] [place] [address], [id number], [place]. tel:[phone] [facility], [address] [place] [address], [id number], [place] tel:[phone] Dental Clinic No Information 2 Ruddy Delgado. [address] [place] [address], [id number] , [place]. tel:[phone] [facility], [address] [place] [address], [id number], [place] tel:[phone] COVID [facility] No Information 2 Kervin Adkins. [address], [place], [id number] , [place]. tel:[phone] [facility], [address], [place], [id number], [place] tel:[phone] Dental Clinic Dental Limited (chief complaint) Encounter for screening for dental disorders 2 Ruddy Delgado. [address], [place], [id number] , [place]. tel:[phone] [facility], [address], [place], [id number], [place] tel:[phone] Dental Clinic Fill (chief complaint) Encounter for screening for dental disorders 2 Ruddy Delgado. [address], [place], [id number] , [place]. tel: [phone] [facility], [address], [place], [id number], [place] tel:[phone] Dental Clinic Fillings (chief complaint) Encounter for screening for dental disorders 2 Ruddy Delgado. [address], [place], [id number] , [place]. tel:[phone] [facility], [address], [place], [id number], [place] tel:[phone] Dental Clinic Fill (chief complaint) Encounter for screening for dental disorders 2 Ruddy Delgado. [address], [place], [id number] , [place]. tel:[phone] [facility], [address], [place], [id number], [place] tel:[phone] Dental Clinic filling (chief complaint) Encounter for screening for dental disorders 2 José Luis Ayoub. [address] [place], [address], [place]. tel:[phone] [facility], [address], [place], [id number], [place] tel:[phone] Dental Clinic Filling (chief complaint) Encounter for screening for dental disorders 2 Ordonez DDS Mega. [address] [place], [address], [place]. tel: [phone] [facility], [address], [place], [id number], [place] tel:[phone] Dental Clinic DL (chief complaint) Encounter for screening for dental disorders 2 Ordonez DDS Mega. [address] [place], [address], [place]. tel: [phone] [facility], [address] [place] [address], [id number], [place] tel:[phone] Dental Clinic dental new (chief complaint) Encounter for screening for dental disorders 9 Domarkos DDS Alfredojulianek. [address], [place], [id number] , [place]. tel: [phone] [facility], [address] [place] [address], [id number], [place] tel:[phone] [facility] Detox Encounter for test, result negativeAlcohol dependence with withdrawal, unspecifiedAnxiety disorder, unspecifiedCough Mar-0 8-201 8 [place] Zachary. [address] [place], [address], [place]. tel: [phone] [facility], [address] [place] [address], [id number], [place] tel:[phone] [facility] Detox [place]: (chief complaint) Encounter for test, result negativeAlcohol dependence with withdrawal, unspecifiedAnxiety disorder, unspecifiedCough Mar-0 7-201 8 [place] Zachary. [address] [place], [address], [place]. tel: [phone] [facility], [address] [place] [address], [id number], [place] tel:[phone] [facility] Detox Encounter for test, result negativeAlcohol dependence with withdrawal, unspecifiedAnxiety disorder, unspecified Mar-0 6-201 8 [place] Sharma. [address] [place], [address], [place]. tel:[phone] [facility], [address] [place] [address], [id number], [place] tel:[phone] [facility] Detox Encounter for test, result negativeAlcohol dependence with withdrawal, unspecifiedAnxiety disorder, unspecified Mar-0 6-201 8 [place] Sharma. [address] [place], [address], [place]. tel:[phone] [facility], [address] [place] [address], [id number], [place] tel:[phone] [facility] Detox [place]: (chief complaint) Encounter for test, result negativeAlcohol dependence with withdrawal, unspecifiedAnxiety disorder, unspecified Mar-0 5-201 8 [place] Sharma. [address] [place], [address], [place]. tel:[phone] Family History Family Member Type Diagnosis Age [...] ID Sarah monroe(s) [facility] 17 [id number] Social History Type Description Quantity Date Captured [...] Of Treatment Date Type Action Status Goal HPV. Due on due Goal Unhealthy [...] tr eatment DL DL dental new dental [facility] [place]: Doing better now than when last seen. Coughing 5 or 6 days. Bringing up green and dark sputum. Has used a Ventolin inhaler in the past. 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 Functional Status Date Functional Assessmen t No Information Instructions Date Instruction Additional Infor mation No Information Assessments Type Assessment Date No Information Patient Care Teams Name Effective Dates (start - stop) Status Members No Information
--- OUTSIDE RECORDS SUMMARY | 2024-11-18 11:07 | XMS_ITS | Encounter Summary ---
Demographics Address [address] [facility] [address] [place] [address] Mobile Phone Home Phone Work Phone Email Address Preferred Language en Marital Status Buddhism Affiliation Unknown Race White Ethnic Group Not or Lati no Author Organization [facility] Address [address] [place] [address] Care Team Providers Care Patient Relations Liaison Name Role Phone Domi Altamirano HALF BACKER Unavailable [phone] Hiren Horton MD Primary Care Provider [phone] Domi Altamirano HALF BACKER Unavailable [phone] Domi Altamirano NP Unavailable [phone] Unallocated, [facility]oms Provider Primary Care Provi taylor Encounter Details Date Type Department Care Team (Late st Contact Info) Description 09/23/2024 Abstract [facility] [address] [place] [id number] Domi Altamirano HALF BACKER [address] [place] [address] Social History Tobacco Use Types [...] declined 10/08/2023 How often do you attend faith or yazidism serv ices? Never 10/08/2023 Do you belong to any clubs o r organizations such as faith groups, unions, fraternal or athletic groups, or [...] medical care, and heating? Very hard 10/08/2023 [facility] [place] of Occupat ional Health - Occupational Stress [...] any time in the past 12 m [facility], were you homeless or living in [...] on filedocumented in this encounter Care Teams Patient Relations Liaison Relationship Specialty Start Date End Date Hiren Horton MD [address] [place] [address] PCP - General Family Medicine 07/26/23 10/13/24 Domi Altamirano NP [address] [place] [address] PCP - [facility] 08/24/24 Unallocated, Carol Ann Ferrell MD [address] [place] [address] PCP - General Family Medicine 10/14/24 Domi Altamirano NP [address] [place] [address] Nurse Practitioner Family Medicine 03/26/22 10/13/24 Domi Altamirano NP [address] [place] [address] Nurse Practitioner Family Medicine 07/26/23 10/13/24 documented as of this encounter
--- OUTSIDE RECORDS SUMMARY | 2024-11-18 11:07 | XMS_ITS | Encounter Summary ---
Demographics Address [address] [facility] [address] [place] [address] Mobile Phone Home Phone Work Phone Email Address Preferred Language en Marital Status Tenriism Affiliation Unknown Race White Ethnic Group Not or Lati no Author Organization [facility] Address [address] [facility] [place] [address] Care Team Providers Care Java Sybase Developer Name Role Phone Domi Altamirano CARTOGRAPHIC DRAFTER Unavailable [phone] Hiren Horton MD Primary Care Provider [phone] Domi Altamirano CARTOGRAPHIC DRAFTER Unavailable [phone] Domi Altamirano NP Unavailable [phone] Unallocated, Noms Provider Primary Care Provi taylor Encounter Details Date Type Department Care Team (Late st Contact Info) Description 09/16/2024 Orders Only [facility] [address] [place] [address] Domi Altamirano CARTOGRAPHIC DRAFTER [address] [place] [address] Social History Tobacco Use Types Packs/Day Years [...] declined 10/08/2023 How often do you attend muslim or pentecostal serv ices? Never 10/08/2023 Do you belong to any clubs o r organizations such as muslim groups, unions, fraternal or athletic groups, or [...] medical care, and heating? Very hard 10/08/2023 [facility] [place] of Occupat ional Health - Occupational Stress [...] any time in the past 12 m [facility], were you homeless or living in a custodial (including now)? Yes 10/08/2023 Comments Unknown Sex and Gender Information Value Date Recorded Sex Assigned at Not on file Legal Sex Female 6:59 PM EDT Gender Identity Not on file Sexual Orientation Not on file documented as of this encounter Plan of Treatment Not on file documented as of this encounter Procedures Procedure [...] Modality Body, Chest Computed Tomogra phy Li Ku MD IMG CT PROCEDURES Final Result * CT abdomen pelvis w and wo IV contrast (09/16/2024 10:46 AM EDT) Anatomical Region Laterality Modality Body, Pelvis, Abdomen Computed T omography Li Ku MD IMG CT PROCEDURES Final Result * CT HEAD/BRAIN W & WO CONTRAST (09/16/2024 10:32 AM EDT) Anatomical Region Laterality Modality Radiographic Carmen ging Domi Altamirano NP IMG XR PROCEDURES Final Result documented in this encounter Visit Diagnoses Not on filedocumented in this encounter Care Teams Java Sybase Developer Relationship Specialty Start Date End Date Hiren Horton MD [address] [place] [address] PCP - General Family Medicine 07/26/23 10/13/24 Domi Altamirano NP [address] [place] [address] PCP - [facility] 08/24/24 Unallocated, Carol Ann Ferrell MD [address] [facility] [place] [address] PCP - General Family Medicine 10/14/24 Domi Altamirano NP [address] [place] [address] Nurse Practitioner Family Medicine 03/26/22 10/13/24 Domi Altamirano NP [address] [place] [address] Nurse Practitioner Family Medicine 07/26/23 10/13/24 documented as of this encounter
--- OUTSIDE RECORDS SUMMARY | 2024-11-18 11:07 | XMS_ITS | Encounter Summary ---
Demographics Address [address] [facility] [address] [place] [address] Mobile Phone Home Phone Work Phone Email Address [email or web address] Preferred Language en Marital Status Temple Affiliation Unknown Race White Ethnic Group Not or Lati no Author Organization [facility] Address [address] [place] [address] Care Team Providers Care Reducing System Operator Name Role Phone Domi Altamirano EMBOSSOGRAPH OPERATOR Unavailable [phone] Hiren Horton MD Primary Care Provider [phone] Domi Altamirano EMBOSSOGRAPH OPERATOR Unavailable [phone] Domi Altamirano NP Unavailable [phone] Unallocated, Noms Provider Primary Care Provi taylor Encounter Details Date Type Department Care Team (Late st Contact Info) Description 09/16/2024 Abstract [facility] [address] [place] [phone] Domi Altamirano EMBOSSOGRAPH OPERATOR [address] [place] [address] Social History Tobacco Use Types [...] declined 10/08/2023 How often do you attend yazidism or restoration serv ices? Never 10/08/2023 Do you belong to any clubs o r organizations such as yazidism groups, unions, fraternal or athletic groups, or [...] medical care, and heating? Very hard 10/08/2023 [facility] [place] of Occupat ional Health - Occupational Stress [...] any time in the past 12 m [facility], were you homeless or living in a half-way (including now)? Yes 10/08/2023 Comments Unknown Sex and Gender Information Value Date Recorded Sex Assigned at Not on file Legal Sex Female 6:59 PM EDT Gender Identity Not on file Sexual Orientation Not on file documented as of this encounter Plan of Treatment Not on file documented as of this encounter Visit Diagnoses Not on filedocumented in this encounter Care Teams Reducing System Operator Relationship Specialty Start Date End Date Hiren Horton MD [address] [place] [address] PCP - General Family Medicine 07/26/23 10/13/24 Domi Altamirano NP [address] [place] [address] PCP - [facility] 08/24/24 Unallocated, Carol Ann Ferrell MD [address] [place] [address] PCP - General Family Medicine 10/14/24 Domi Altamirano NP [address] [place] [address] Nurse Practitioner Family Medicine 03/26/22 10/13/24 Domi Altamirano NP [address] [place] [address] Nurse Practitioner Family Medicine 07/26/23 10/13/24 documented as of this encounter
--- OUTSIDE RECORDS SUMMARY | 2024-11-18 11:07 | XMS_ITS | Encounter Summary ---
Demographics Address [address] [facility] [address] [place] [address] Mobile Phone Home Phone Work Phone Email Address Preferred Language en Marital Status Faith Affiliation Unknown Race White Ethnic Group Not or Lati no Author Organization [facility] Address [address] [place] [address] Care Team Providers Care Tip Fixer Name Role Phone Domi Altamirano BUILDING CONTRACTOR Unavailable [phone] Hiren Horton MD Primary Care Provider [phone] Domi Altamirano BUILDING CONTRACTOR Unavailable [phone] Domi Altamirano NP Unavailable [phone] Unallocated, Noms Provider Primary Care Provi taylor Encounter Details Date Type Department Care Team (Late st Contact Info) Description 12/31/2023 Orders Only [facility] [address] [place] [address] Abran West MD [address], [place] [id number] Social History Tobacco Use Types Packs/Day Years [...] How often do you attend methodist or jainism serv ices? Never 10/08/2023 Do you belong [...] heating? Very hard 10/08/2023 [facility] [place] of Occupat ional Health - Occupational Stress [...] any time in the past 12 m [facility], were you homeless or living in [...] Laterality Modality Chest Radiographic Carmen ging us Abran West MD IMG XR PROCEDURES Final Resul t documented in this encounter Visit Diagnoses Not on filedocumented in this encounter Care Teams Tip Fixer Relationship Specialty Start Date End Date Hiren Horton MD [address] [place] [address] PCP - General Family Medicine 07/26/23 10/13/24 Domi Altamirano NP [address] [place] [address] PCP - [facility] 08/24/24 Unallocated, Noms Provider, [address] [place] [address] PCP - General Family Medicine 10/14/24 Domi Altamirano NP [address] [place] [address] Nurse Practitioner Family Medicine 03/26/22 10/13/24 Domi Altamirano NP [address] [place] [address] Nurse Practitioner Family Medicine 07/26/23 10/13/24 documented as of this encounter
--- OUTSIDE RECORDS SUMMARY | 2024-11-18 11:07 | XMS_ITS | Clinical Summary ---
Demographics Address [address] [place] [address] Mobile Phone Home Phone Work Phone Email Address Preferred Language en Marital Status Episcopalian Affiliation Unknown Race White Ethnic Group Not or Lati no Author Organization [facility] Address [address] [place] [address] Care Team Providers Care Sole Sewer Hand Name Role Phone Domi Altamirano MIGUEL A Unavailable [phone] Unallocated, Noms Provider Primary Care Provi taylor Allergies Active Allergy Reactions Criticality Noted Date Comments Erythromycin Unknown 02/21/2023 Latex Unknown 02/21/2023 Methylprednisolone Unknown 02/21/2023 Methylprednisolone Sodium Succ Anaphylaxis High 12/0 08/2016 Tramadol 07/26/2023 Ubobkfdemlc-Wnfzdfugz-Dmrgrf Shortness of breath High 02/21/2023 Medications cetirizine [...] by mouth at bedtime 90 tablet 1 Active fluticasone (Flonase) 50 MCG/ACT nasal sprayIndications:E nvironmental and seasonal allergies Administer 2 sprays into each nostril Daily Shake gently. Before first use, prime pump. After use, clean tip and replace cap. 48 g Active gabapentin (Neurontin) 400 MG capsuleIndications :Chronic pain syndrome Take 1 capsule (400 mg) by mouth every 8 (eight) hours if needed (back pain) 270 capsule Active tiotropium-olodate rol (Stiolto Respimat) 2.5-2.5 MCG/ACT aerosol solution inhalerIndications :Centrilobular emphysema (HCC) Inhale 2 Inhalation Daily 12 g Active omeprazole (PriLOSEC) [address] capsuleIndications :Gastroesophageal reflux disease without esophagitis Take 1 capsule (40 mg) by mouth in the morning and 1 capsule (40 mg) before bedtime. 180 capsule 1 Active montelukast (Singulair) 10 MG tabletIndications: Asthma without status asthmaticus without complication, unspecified asthma severity, unspecified whether persistent (HCC) Take 1 tablet (10 mg) by mouth at bedtime 90 tablet 1 Active losartan (Cozaar) 50 MG tabletIndications: Hypertension Take 1 tablet (50 mg) by mouth Daily 90 tablet 1 5 Active metoprolol tartrate (Lopressor) 50 MG tabletIndications: Heart palpitations Take 1 tablet (50 mg) by mouth in the morning and 1 tablet (50 mg) before bedtime. 180 tablet 1 5 Active Active Problems Problem Noted Date Diagnosed [...] 07/22/2024 Bronchitis 12/11/2023 04/14/2024 Overview (01/10/2024): [facility] [id number] Exp: 03/25/24 Lot # [id number] Assessment & Plan (01/10/2024 1:18 PM EDT): No wheezing noted, multiple allergies and has been on z pack as well as doxy and steroids Will order health trax Possible allergy trigger?? Samples of vandana 180mg 1 po daily, and #2 samples Lot [id number], exp 08/18 Airsupra sample #1; [id number], exp 04/2024 Astepro allergy nasal spray 2 [...] AM EDT): Tremayne samples X3 given Lot: [id number], exp 12/18 Assessment & Plan (10/15/2023 7:48 PM EDT): Continue with current meds no changes Major depression in partial remission 07/26/2023 04/14/2024 Encounters Date Type Department Care Team Description 10/15/2024 External Result Encounter [facility] External Department Unsolicited Jose M Mercedes, DO 10/14/2024 External Result Encounter [facility] External Department Unsolicited Jose M Mercedes, DO 10/14/2024 External Result Encounter [facility] External Department Unsolicited Jose M Mercedes, DO 10/14/2024 External Result Encounter [facility] External Department Unsolicited Jose M Mercedes, DO 10/14/2024 External Result Encounter [facility] External Department Unsolicited Jose M Mercedes, DO 09/30/2024 Clinisync Result Encounter [facility] External Department Unsolicited Provider, Generic External Data 09/23/2024 Travel 09/23/2024 Abstract [facility] [address] [place] [address] Domi Altamirano, FORENSIC ANALYST 09/22/2024 Abstract [facility] [address] [place] [address] Domi Altamirano, FORENSIC ANALYST 09/22/2024 Orders Only [facility] [address] [place] [address] Nakul Swenson MD 09/22/2024 Abstract [facility] [address] [place] [address] Domi Altamirano, FORENSIC ANALYST 09/18/2024 Clinisync Result Encounter [facility] External Department Unsolicited Provider, Generic External Data 09/18/2024 Abstract [facility] [address] [place] [address] Domi Altamirano, FORENSIC ANALYST 09/17/2024 Abstract [facility] [address] [place] [address] Domi Altamirano, FORENSIC ANALYST 09/17/2024 Orders Only [facility] [address] [place] [address] Li Ku MD 09/17/2024 Abstract [facility] [address] [place] [address] Domi Altamirano, FORENSIC ANALYST 09/16/2024 Abstract [facility] [address] [place] [address] Domi Altamirano NP 09/16/2024 Orders Only [facility] [address] [place] [address] Domi Altamirano NP 09/16/2024 Abstract [facility] [address] [place] [id number] Domi Altamirano NP 09/16/2024 Clinisync Result Encounter [facility] External Department Unsolicited Billie Mena PA from Last 3 Months Family History Medical [...] How often do you attend episcopalian or taoism serv ices? Never 10/08/2023 Do you belong [...] medical care, and heating? Very hard 10/08/2023 [facility] - Occupational Stress Questionnaire Answer Date [...] time in the past 12 m [facility], were you homeless or living [...] 01/10/2024 11:35 AM EDT Plan of Treatment Health Maintenance Due [...] Procedure Name Priority Date/Time Associated Diagnosis Comments FIBRINOGEN ACTIVITY, CLAUSS Routine 10/15/2024 5:53 AM EDT PROTEIN ELECTRO, RANDOM URINE Routine 10/14/2024 5:00 PM EDT IMMUNOFIXATION,SERUM ([facility]) Routine 10/14/2024 12:20 PM EDT [facility] PANEL TO NEOGENOMIC Routine 10/14/2024 12:20 PM EDT FREE K+L LT CHAINS, QN, S Routine 10/14/2024 12:20 PM EDT PROTEIN ELECTROPHORESIS, SERUM Routine 10/14/2024 12:20 PM EDT HAPTOGLOBIN Routine 10/14/2024 12:20 PM EDT MHPT DIFFERENTIAL Routine 09/30/2024 8:4 2 [...] Relevant to Health Maintenance Results * (ABNORMAL) Fibrinogen (10/15/2024 5:53 AM EDT) FIBRINOGEN 945(H) 200 - 393 mg/dL 10/15/2024 7:20 AM EDT [facility] Comment: A hematocrit value greater than 55% may lead to inaccurate results in coagulation testing. Patients having hematocrit values >55% require a special collection tube for coagulation studies. Please contact the laboratory at [phone] for redraw instructions. Other Topography unknown / Unknown 10/15/2024 5:53 AM EDT 10/15/2024 6:15 AM EDT Jose M Mercedes DO LAB BLOOD ORDERABLES Chloe l Result COUNTS INCLUDE 234 BEDS AT [facility] [address] [place] [address], [facility] [address] [place] [address] * PROTEIN ELECTRO, RANDOM URINE (10/14/2024 5:00 PM EDT) PROTEIN, TOTAL, URINE 19.9 Not Estab. mg/dL 10/18/2024 4:08 PM EDT COUNTS INCLUDE 234 BEDS AT THE [facility] ALBUMIN, URINE 6.9 . % 10/18/2024 4:08 PM EDT COUNTS INCLUDE 234 BEDS AT THE [facility] GVKZC-0-NMCRGXNE, URINE 2.9 . % 10/18/2024 4:08 PM EDT COUNTS INCLUDE 234 BEDS AT THE [facility] DTMSN-6-[id number], URINE 33.9 . % 10/18/2024 4:08 PM EDT COUNTS INCLUDE 234 BEDS AT THE [facility] BETA GLOBULIN, URINE 29.0 . % 10/18/2024 4:08 PM EDT COUNTS INCLUDE 234 BEDS AT THE [facility] GAMMA GLOBULIN, URINE 27.3 . % 10/18/2024 4:08 PM EDT COUNTS INCLUDE 234 BEDS AT THE [facility] M-SPIKE % 5.0 Not Observed % 10/18/2024 4:08 PM T COUNTS INCLUDE 234 BEDS AT THE [facility] Comment:Alpha 2 and beta reg ions appear asymmetrical. PLEASE NOTE: Comment . 10/18/2024 4:08 PM EDT COUNTS INCLUDE 234 BEDS AT THE [facility] Comment: Protein electrophoresis scan will follow via computer, mail, or appraisal specialist delivery. Performed at: [facility] [address] [id number] [employer] Operator: Abel Finnegan PhD, Phone: [phone] Other 10/14/2024 5:00 PM EDT 10/14/2024 5:08 PM EDT us Jose M Mercedes DO LAB BLOOD ORDERABLES Chloe l Result COUNTS INCLUDE 234 BEDS AT THE [facility] [address] [place] [address], * [facility] PANEL TO NEOGENOMIC (10/14/2024 12:20 PM EDT) [facility] PANEL TO NEOGENOMIC 10/16/2024 8:38 AM EDT [facility] Comment:See report. Scanned copy available in EMR. Other Topography unknown / Unknown 10/14/2024 12:20 PM EDT 10/14/2024 12:30 PM EDT Jose M Mercedes DO LAB BLOOD ORDERABLES Chloe l Result Performing Organization Address [facility]/ZIP Co de Phone Number COUNTS INCLUDE 234 BEDS AT THE [facility] [address] [place] [address], [facility] [address] [place] [address] * FREE K+L LT CHAINS, QN, S (10/14/2024 12:20 PM EDT) Pathologist [facility] FREE KAPPA LIGHT CHAINS, S 66.0 3.3 - 19.4 mg/L 10/15/2024 2:36 PM EDT COUNTS INCLUDE 234 BEDS AT THE [facility] FREE LAMBDA LIGHT CHAINS, S 63.7 5.7 - 26.3 mg/L 10/15/2024 2:36 PM EDT COUNTS INCLUDE 234 BEDS AT THE [facility] KAPPA/LAMBDA RATIO, S 1.04 0.26 - 1.65 10/15/2024 2:36 PM EDT COUNTS INCLUDE 234 BEDS AT THE [facility] Comment: Performed at: [facility] [address] [id number] [employer] Operator: Abel Finnegan PhD, Phone: [phone] Other Topography unknown / Unknown 10/14/2024 12:20 PM EDT 10/14/2024 12:30 PM EDT Narrative COUNTS INCLUDE 234 BEDS AT THE [facility] - 10/16/2024 4:08 PM EDT OK TO DO IN THE AM FOR MORNING ROUNDS, PER SOPHIE DAVIS, PLS.@ IS[facility] DATE was changed from 10/14/24 to 10/15/24 Jose M Mercedes DO LAB BLOOD ORDERABLES Chloe l Result Performing Organization Address City/[facility]/ZIP Co de Phone Number COUNTS INCLUDE 234 BEDS AT THE [facility] [address] [place] [address], * IMMUNOFIXATION,SERUM ([facility]) (10/14/2024 12:20 PM EDT) [facility] IMMUNOFIXATION, SERUM Comment: . 10/16/2024 4:08 PM EDT COUNTS INCLUDE 234 BEDS AT THE [facility] Comment: Presence of monoclonal protein is unclear at this time. Suggest repeat in 3 to 6 months if clinically indicated. IMMUNOGLOBULIN G 980 586 - 1,602 mg/dL 10/16/2024 4:08 PM EDT COUNTS INCLUDE 234 BEDS AT THE [facility] IMMUNOGLOBULIN A, SERUM 397 87 - 352 mg/dL 10/16/2024 4:08 PM EDT COUNTS INCLUDE 234 BEDS AT THE [facility] IMMUNOGLOBULIN M, SERUM 166 26 - 217 mg/dL 10/16/2024 4:08 PM EDT COUNTS INCLUDE 234 BEDS AT THE [facility] Comment: Performed at: [facility] [address] [id number] [employer] Operator: Abel Finnegan PhD, Phone: [phone] Other Topography unknown / Unknown 10/14/2024 12:20 PM EDT 10/14/2024 12:30 PM EDT Narrative COUNTS INCLUDE 234 BEDS AT THE [facility] - 10/16/2024 4:08 PM EDT OK TO DO IN THE AM FOR MORNING ROUNDS, PER SOPHIE DAVIS, PLS.@ ISAAC DATE was changed from 10/14/24 to 10/15/24 us Jose M Mercedes DO LAB BLOOD ORDERABLES Chloe bauman Result COUNTS INCLUDE 234 BEDS AT THE [facility] [address] [place] [address], * Protein electrophoresis, serum (10/14/2024 12:20 PM EDT) TOTAL PROTEIN, SERUM 6.3 6.0 - 8.5 g/dL 10/15/2024 1:08 PM EDT COUNTS INCLUDE 234 BEDS AT THE [facility] ALBUMIN, SERUM 1.8 2.9 - 4.4 g/dL 10/15/2024 1:08 PM EDT COUNTS INCLUDE 234 BEDS AT THE [facility] UXTEY-0-[id number] 0.8 0.0 - 0.4 g/dL 10/15/2024 1:08 PM EDT COUNTS INCLUDE 234 BEDS AT THE [facility] AEZSD-4-ZVYKMTAI 1.6 0.4 - 1.0 g/dL 10/15/2024 1:08 PM EDT COUNTS INCLUDE 234 BEDS AT THE [facility] BETA GLOBULIN 1.1 0.7 - 1.3 g/dL 10/15/2024 1:08 PM EDT COUNTS INCLUDE 234 BEDS AT THE [facility] GAMMA GLOBULIN 1.0 0.4 - 1.8 g/dL 10/15/2024 1:08 PM EDT COUNTS INCLUDE 234 BEDS AT THE [facility] M-SPIKE Comment: Not Observed g/dL 10/15/2024 1:08 PM EDT COUNTS INCLUDE 234 BEDS AT THE [facility] Comment: SPE shows asymmetrical beta. Suggest serum BIRDIE and free light chain analysis for further evaluation. GLOBULIN, TOTAL 4.5 2.2 - 3.9 g/dL 10/15/2024 1:08 PM EDT COUNTS INCLUDE 234 BEDS AT THE [facility] A/G RATIO 0.4 0.7 - 1.7 10/15/2024 1:08 PM EDT COUNTS INCLUDE 234 BEDS AT THE [facility] SPE-NOTE Comment . 10/15/2024 1:08 PM EDT COUNTS INCLUDE 234 BEDS AT THE [facility] Comment: Protein electrophoresis scan will follow via computer, mail, or appraisal specialist delivery. Performed at: [address] [id number] [employer] Operator: Abel Finnegan PhD, Phone: [phone] Other Topography unknown / Unknown 10/14/2024 12:20 PM EDT 10/14/2024 12:30 PM EDT Narrative COUNTS INCLUDE 234 BEDS AT THE [facility] - 10/16/2024 4:08 PM EDT OK TO DO IN THE AM FOR MORNING ROUNDS, PER SOPHIE DAVIS PLS.@ [facility] DATE was changed from 10/14/24 to 10/15/24 Jose M Mercedes DO LAB BLOOD ORDERABLES Chloe l Result Performing Organization Address City/[facility] [place] [address], * (ABNORMAL) Haptoglobin (10/14/2024 12:20 PM EDT) Pathologist [facility] HAPTOGLOBIN >400(H) 44 - 215 mg/dL 10/14/2024 1:34 PM EDT [facility] Other Topography unknown / Unknown 10/14/2024 12:20 PM EDT 10/14/2024 12:30 PM EDT Jose M Mercedes DO LAB BLOOD ORDERABLES Chloe l Result Performing Organization Address City/[facility]/ZIP Co de Phone Number COUNTS INCLUDE 234 BEDS AT THE [facility] [address] [place] [address], [facility] [address] [place] [address] * RETICULOCYTE PCT AUTO (09/30/2024 8:42 AM EDT) RETICULOCYTE PCT AUTO 1.34 0.60 - 3.10 % [facility] 09/30/2024 8:42 AM EDT 09/30/2024 8:49 AM EDT Narrative [facility] - 09/30/2024 9:47 AM EDT Generic External Data Provider LAB BLOOD ORDERAB LES Final Result [facility] * (ABNORMAL) MHPT DIFFERENTIAL (09/30/2024 8:42 [...] Data Provider CLINISYNC F inal Result [facility] * (ABNORMAL) ALL SED RATE (09/30/2024 8:42 AM EDT) TB SED RATE >130(H) <=20 mm/hr [facility] 09/30/2024 8:42 AM EDT 09/30/2024 8:49 AM EDT Narrative CLINISYNC - 09/30/2024 9:05 AM EDT Generic External Data Provider CLINISYNC F inal Result Performing Organization Address [facility]/ZIP Co de Phone Number [facility]NC TB * (ABNORMAL) ALL CBC WITH AUTO DIFF (09/30/2024 8:42 AM EDT) [facility] TBH WBC 25.4(H) 4.0 - 11.0 10 3/uL [...] CLINISYNC F inal Result Performing Organization Address City/[facility]/ZIP Co de Phone Number [facility] TB * CT ABDOMEN/PELVIS WITH CONTRAST (09/22/2024 11:14 AM EDT) Anatomical Region Laterality Modality Radiographic Carmen ging Nakul Swenson MD IMG [...] AT 5 DAYS.^NO GROWTH AT 5 DAYS. [facility] 09/18/2024 1:30 PM EDT 09/18/2024 1:37 PM EDT Narrative [facility]INISYNC - 09/23/2024 3:26 PM EDT PEDS BOTTLE Generic External Data Provider LAB BLOOD ORDERAB LES Final Result Performing Organization Address City/[facility]/ZIP Co de Phone Number [facility] * BLOOD CULTURE 1 (09/18/2024 1:22 PM EDT) BLOOD CULTURE 1 Blood Culture 1 NG5D NO GROWTH AT 5 DAYS.^NO GROWTH AT 5 DAYS. [facility] 09/18/2024 1:22 PM EDT 09/18/2024 1:36 PM EDT Narrative CLINISYNC - 09/23/2024 3:25 PM EDT PEDS BOTTLE Generic External Data Provider LAB BLOOD ORDERAB LES Final Result [facility] * LOWER RESPIRATORY CULTURE (09/18/2024 9:53 AM EDT) LOWER RESPIRATORY CULTURE Lower Respiratory Culture WILL FOLLOW [facility] LOWER RESPIRATORY CULTURE Routine respiratory luke [facility] LOWER RESPIRATORY CULTURE [facility]formed at: - [facility]OWER RESPIRAT[facility] CULTURE [address] [place], [place] [id number] [facility] LOWER RESPIRATORY CULTURE Jig Mill Operator: Abel Finnegan PhD, Phone: [phone] [facility] 09/18/2024 9:53 AM EDT 09/18/2024 10:37 AM EDT Narrative CLINISYNC - 09/21/2024 9:07 PM EDT Generic External Data Provider LAB BLOOD ORDERAB LES Final Result Performing Organization Address City/[facility]/ZIP Co de Phone Number [facility] * GRAM STAIN EVALUATION (09/18/2024 9:53 AM EDT) GRAM STAIN EVALUATION Gram Stain Evaluation This specimen is of good quality and is acceptable for routine TB GRAM STAIN EVALUATION bacterial culture. TB 09/18/2024 9:53 AM EDT 09/18/2024 10:37 AM EDT Narrative CLINISYNC - 09/21/2024 9:07 PM EDT Generic External Data Provider LAB BLOOD ORDERAB LES Final Result Performing Organization Address [facility] Phone Number [facility] * RESULT 4 (09/18/2024 9:53 AM EDT) RESULT 4 Result 4 FORENSIC ANALYST TB 09/18/2024 9:53 AM EDT 09/18/2024 10:37 AM EDT Narrative CLINISYNC - 09/21/2024 9:07 PM EDT Generic External Data Provider LAB BLOOD ORDERAB LES Final Result Performing Organization Address [facility] de Phone Number [facility] TB * RESULT 3 (09/18/2024 9:53 AM EDT) RESULT 3 Result 3 Few gram negative cocci TB 09/18/2024 9:53 AM EDT 09/18/2024 10:37 AM EDT Narrative CLINISYNC - 09/21/2024 9:07 PM EDT Generic External Data Provider LAB BLOOD ORDERAB LES Final Result Performing Organization Address [facility] Co de Phone Number [facility] TB * RESULT 2 (09/18/2024 9:53 AM EDT) RESULT 2 Result 2 Few gram negative rods. TB 09/18/2024 9:53 AM EDT 09/18/2024 10:37 AM EDT Narrative CLINISYNC - 09/21/2024 9:07 PM EDT us Generic External Data Provider LAB BLOOD ORDERAB LES Final Result Performing Organization Address [facility] Co de Phone Number [facility] * RESULT 1 (09/18/2024 9:53 AM EDT) RESULT 1 Result 1 Many gram positive cocci. TBH 09/18/2024 9:53 AM EDT 09/18/2024 10:37 AM EDT Narrative CLINISYNC - 09/21/2024 9:07 PM EDT us Generic External Data Provider LAB BLOOD ORDERAB LES Final Result Performing Organization Address [facility] Phone Number [facility] * EPITHELIAL CELLS (09/18/2024 9:53 AM EDT) EPITHELIAL CELLS Epithelial Cells Few [facility] 09/18/2024 9:53 AM EDT 09/18/2024 10:37 AM EDT Narrative CLINISYNC - 09/21/2024 9:07 PM EDT us Generic External Data Provider LAB BLOOD ORDERAB LES Final Result Performing Organization Address [facility] Co de Phone Number [facility] * WHITE BLOOD CELLS (09/18/2024 9:53 AM EDT) WHITE BLOOD CELLS White Blood Cells TBH WHITE BLOOD CELLS None seen [facility] 09/18/2024 9:53 AM EDT 09/18/2024 10:37 AM EDT Narrative CLINISYNC - 09/21/2024 9:07 PM EDT us Generic External Data Provider LAB BLOOD ORDERAB LES Final Result Performing Organization Address [facility] Co de Phone Number [facility] * CT chest wo IV contrast (09/16/2024 10:50 AM EDT) Anatomical Region Laterality Modality Body, Chest Computed Tomogra phy Li Ku MD IMG CT PROCEDURES Final Result * CT abdomen pelvis w and wo IV contrast (09/16/2024 10:46 AM EDT) Anatomical Region Laterality Modality Body, Pelvis, Abdomen Computed T omography Li Ku MD IM CT PROCEDURES Final Result * CT HEAD/BRAIN W & WO CONTRAST (09/16/2024 10:32 AM EDT) Anatomical Region Laterality Modality Radiographic Carmen ging Domi Altamirano NP IMG XR PROCEDURES Final Result * (ABNORMAL) [facility] URINALYSIS, WITH MICROSCOPIC (09/16/2024 1:21 AM [...] CLINISYNC - 09/16/2024 1:52 AM EDT Billie CAI CLINCHLOE Final Result [facility] * POCT glycosylated hemoglobin (Hb A1C) docked device (07/22/2024 8:47 AM EDT) Hemoglobin A1C 5.6 Blood Venous blood specimen / Unknown 07/22/2024 8:47 AM EDT Domi Altamirano NP POINT OF CARE TEST ENTER/EDIT O RDERABLES Final Result * Cologuard?? colon cancer screening (10/09/2023 1:30 PM EDT) NONINV COLON CA DNA+OCC BLD SCRN STL-IMP Negative Negative 10/21/2023 5:33 PM EDT [facility] (CLIA #:[id number]) Comment: NEGATIVE TEST RESULT. A negative Cologuard [...] (Ousmane Buitrago al, N Engl J Med 2014;370(14):5544-9799) The normal value (reference range) for this assay is negative. COLOGUARD RE-SCREENING RECOMMENDATION: Periodic colorectal cancer screening is an important part of preventive healthcare for asymptomatic individuals at average risk for colorectal cancer. Following a negative Cologuard result, the [place] [employer] and U.S. Multi-Society Task Force screening guidelines recommend a Cologuard re-screening interval of 3 years. References: [place] [employer] Guideline for Colorectal Cancer Screening: https://www.cancer.org/cancer/lmpsu-tjxtwl-yzevqe/eqvebuqix-zndersnno-dtbzwfu/ac s-rec ommendations.html.; Jonathan DK, John CR, Ciro AdamsK, Colorectal Cancer Screening: Recommendations for Physicians and Patients from the U.S. Multi-Society Task Force on Colorectal Cancer Screening , Am J Gastroenterology 2017; 112:3364-9403. TEST DESCRIPTION: Composite algorithmic analysis of stool [...] (Ousmane Buitrago al, N Engl J Med 2014;370(14):8276-3768.) Cologuard may produce a false negative or false positive result (no colorectal cancer or precancerous polyp present at colonoscopy follow up). A negative Cologuard test result does not guarantee the absence of CRC or advanced adenoma (pre-cancer). The current Cologuard screening interval is every 3 years. ([place] [employer] and U.S. Multi-Society Task Force). Cologuard performance data in a 10,000 patient pivotal study using colonoscopy as the reference method can be accessed at the following location: www.[employer]/results. Additional description of the Cologuard test process, warnings and precautions can be found at www.[employer] On[employer].com. Stool specimen (specimen) 10/09/2023 1:30 PM EDT 10/11/2023 8:01 AM EDT Domi Altamirano NP LAB MOLECULAR DIAGNOSTICS ORDER DEANDRE Final Result [employer] (CLIA #:[id number]) [address] [address], [employer] (CLIA #:[id number]) [address] [address] * MM TOMOSYNTHESIS SCREENING BI (09/25/2023 3:19 PM EDT) Anatomical Region Laterality Modality Other 09/25/2023 3:19 PM EDT Narrative 09/25/2023 3:20 [place] [address] Mammography Report Signed Patient: RYLEE BURTON MR#: [id number] : 1975 Acct:[id number] Age/Sex: 48 / F ADM Date: 09/24/23 Loc: MAMMO Attending Dr: Domi Altamirano NP Ordering Physician: Domi Altamirano NP Results: Date of Service: 09/24/23 Follow Up: Procedure(s): MM tomosynthesis screening BI Accession Number(s): [id number] cc: Domi Altamirano NP Patient Name: RYLEE BURTON MR#: [id number] : 1975 Exam Date: 09/24/2023 Ordering Doctor: [...] lymphoma cancer at age 63. LOCATION: [facility] BREAST COMPOSITION: The breasts are [...] Signed By: 09/25/23 1520 DD/ 1519 TD/TT: Hydroelectric Production Manager: Procedure Note Radiology, Radiologist, - 09/25/2023 [place] [address] Mammography Report Signed Patient: RYLEE BURTON KMR#: [id number] : 1975Acct:[id number] Age/Sex: 48 / FADM Date: 09/24/23 Loc: MAMMO Attending Dr: Domi Altamirano NP Ordering Physician: Domi Altamirano NPResults: Date of Service: 09/24/23Follow Up: Procedure(s): MM tomosynthesis screening BI Accession Number(s): [id number] cc: Domi Altamirano NP Patient Name: RYLEE BURTON MR#: [id number] : 1975 Exam Date: 09/24/2023 Ordering Doctor: ARELY ALTAMIRANO SEAMING MACHINE OPERATOR RADIOLOGY REPORT PROCEDURE: MM TOMOSYNTHESIS SCREENING BI [...] lymphoma cancer at age 63. LOCATION: [facility] BREAST COMPOSITION: The breasts are [...] M.D. Signed By:09/25/23 1520 DD/ 1519 TD/TT: Hydroelectric Production Manager: Domi Altamirano NP [facility] Final Result * Diabetic Retinopathy Screening - OU - Both Eyes (09/25/2023 8:54 AM EDT) Anatomical Region Laterality Modality Head Other us Seven Carolyn OD OPHTH PHOTOGRAPHY Final Result from Last 3 Months or Most Recently Relevant to Health Maintenance Insurance [address] [address] [facility] Care Teams Sole Sewer Hand Relationship Specialty Start Date End Date Domi Altamirano NP [address] [place] [address] PCP - [employer] 6/1/25 Unallocated, Noms Provider, [address] [place] [address] PCP - General Family Medicine 10/14/24
--- OUTSIDE RECORDS SUMMARY | 2024-11-18 11:07 | XMS_ITS | Encounter Summary ---
Demographics Address 309 03[address]27 [facility] [address] [place] [address] Mobile Phone Home Phone Work Phone Email Address Preferred Language en Marital Status Buddhism Affiliation Unknown Race White Ethnic Group Not or Lati no Author Organization [facility] Address [address] [place] [address] Care Team Providers Care Lining Machine Tender Name Role Phone Domi Altamirano HOUSEKEEPER NANNY Unavailable [phone] Hiren Horton MD Primary Care Provider [phone] Domi Altamirano HOUSEKEEPER NANNY Unavailable [phone] Domi Altamirano NP Unavailable [phone] Unallocated, Noms Provider Primary Care Provi taylor Encounter Details Date Type Department Care Team (Late st Contact Info) Description 09/22/2024 Abstract [facility] [address] [place] [address] Domi Altamirano HOUSEKEEPER NANNY [address] [place] [address] Social History Tobacco Use Types [...] declined 10/08/2023 How often do you attend spiritism or buddhist serv ices? Never 10/08/2023 Do you belong to any clubs o r organizations such as spiritism groups, unions, fraternal or athletic groups, or [...] medical care, and heating? Very hard 10/08/2023 [facility] [place] of Occupat ional Health - Occupational Stress [...] any time in the past 12 m [facility], were you homeless or living [...] on filedocumented in this encounter Care Teams Lining Machine Tender Relationship Specialty Start Date End Date Hiren Horton MD [address] [place] [address] PCP - General Family Medicine 07/26/23 10/13/24 Domi Altamirano NP [address] [place] [address] PCP - [facility] 08/24/24 Unallocated, Carol Ann Ferrell MD [address] [place] [address] PCP - General Family Medicine 10/14/24 Domi Altamirano NP [address] [place] [address] Nurse Practitioner Family Medicine 03/26/22 10/13/24 Domi Altamirano NP [address] [place] [address] Nurse Practitioner Family Medicine 07/26/23 10/13/24 documented as of this encounter
--- OUTSIDE RECORDS SUMMARY | 2024-11-18 11:07 | XMS_ITS | Encounter Summary ---
Demographics Address [address] 03[address] [address] Mobile Phone Home Phone Work Phone Email Address Preferred Language en Marital Status Scientology Affiliation Unknown Race White Ethnic Group Not or Lati no Author Organization [facility] Address [address] [place] [address] Care Team Providers Care Brush Operator Name Role Phone Domi Altamirano ELECTRIC MOTOR AND GENERATOR ASSEMBLER Unavailable [phone] Hiren Horton MD Primary Care Provider [phone] Domi Altamirano ELECTRIC MOTOR AND GENERATOR ASSEMBLER Unavailable [phone] Domi Altamirano NP Unavailable [phone] Unallocated, Noms Provider Primary Care Provi taylor Encounter Details Date Type Department Care Team (Late st Contact Info) Description 09/22/2024 Orders Only [facility] [address] [place] [address] Nakul Swenson MD [address] [place] [address] Social History Tobacco Use Types [...] How often do you attend quaker or restorationism serv ices? Never 10/08/2023 Do you belong [...] care, and heating? Very hard 10/08/2023 [facility] [place] of Occupat ional Health - Occupational Stress [...] were you homeless or living in a penitentiary (including now)? Yes 10/08/2023 Comments Unknown Sex [...] on filedocumented in this encounter Care Teams Brush Operator Relationship Specialty Start Date End Date Hiren Horton MD [address] [place] [address] PCP - General Family Medicine 07/26/23 10/13/24 Domi Altamirano NP [address] [place] [address] PCP - [facility] [employer] 08/24/24 Unallocated, Noms Mariaelena, [place] [address] PCP - General Family Medicine 10/14/24 Domi Altamirano NP [address] [place] [address] Nurse Practitioner Family Medicine 03/26/22 10/13/24 Domi Altamirano NP [address] [place] [address] Nurse Practitioner Family Medicine 07/26/23 10/13/24 documented as of this encounter
--- OUTSIDE RECORDS SUMMARY | 2024-11-18 11:07 | XMS_ITS | Encounter Summary ---
Author Organization [facility] Address [address] [place] [address] Care Team Providers Care Uptwist Spinner Name Role Phone Lizzette Malik CNP Primary Care Provider [phone] Domi Altamirano LEATHER COLORER Unavailable [phone] Source Comments In the event this information is protected by the Federal Confidentiality of Alcohol and Drug AbusePatient Records regulations: The Federal rules restrict any use of the information to criminally investigate or prosecute any alcohol or drug abuse patient.[facility] Reason for Visit * Reason Comments Radiology CT Encounter Details Date Type Department Care Team ([facility] st Contact Info) Description 06/20/2017 Radiology Radiology [address] [address] Lizzette Malik, LEATHER COLORER [address] [place] [address] Social History Tobacco Use Types [...] on filedocumented in this encounter Care Teams Uptwist Spinner Relationship Specialty Start Date End Date Lizzette Malik CNP PCP - General Family Medicine 12/04/14 Domi Altamirano CNP Referring Family Medicine 10/14/21 documented as of this encounter
--- OUTSIDE RECORDS SUMMARY | 2024-11-18 11:07 | XMS_ITS | Encounter Summary ---
Demographics Address [address] 03[address]27 [facility] [address] [place] [address] Mobile Phone Home Phone Work Phone Email Address Preferred Language en Marital Status Congregational Affiliation Unknown Race White Ethnic Group Not or Lati no Author Organization [facility] Address [address] [place] [address] Care Team Providers Care Shank Sorter Name Role Phone Domi Altamirano KARATE BLACK BELT Unavailable [phone] Hiren Horton MD Primary Care Provider [phone] Domi Altamirano KARATE BLACK BELT Unavailable [phone] Domi Altamirano NP Unavailable [phone] Unallocated, Noms Provider Primary Care Provi taylor Encounter Details Date Type Department Care Team (Late st Contact Info) Description 01/10/2024 Abstract [facility] [address] [place] [address] Domi Altamirano KARATE BLACK BELT [address] [place] [address] Social History Tobacco Use Types Packs/Day Years [...] declined 10/08/2023 How often do you attend restorationism or orthodoxy serv ices? Never 10/08/2023 Do you belong to any clubs o r organizations such as restorationism groups, unions, fraternal or athletic groups, or [...] medical care, and heating? Very hard 10/08/2023 [facility] [place] of Occupat ional Health - Occupational Stress [...] on filedocumented in this encounter Care Teams Shank Sorter Relationship Specialty Start Date End Date Hiren Horton MD [address] [place] [address] PCP - General Family Medicine 07/26/23 10/13/24 Domi Altamirano NP [address] [place] [address] PCP - [facility] 08/24/24 Unallocated, Carol Ann Ferrell MD [address] [place] [address] PCP - General Family Medicine 10/14/24 Domi Altamirano NP [address] [place] [address] Nurse Practitioner Family Medicine 03/26/22 10/13/24 Domi Altamirano NP [address] [place] [address] Nurse Practitioner Family Medicine 07/26/23 10/13/24 documented as of this encounter
--- OUTSIDE RECORDS SUMMARY | 2024-11-18 11:07 | XMS_ITS | Encounter Summary ---
Demographics Address [address] [place] [address] Mobile Phone Home Phone Work Phone Email Address Preferred Language en Marital Status Yarsani Affiliation Unknown Race White Ethnic Group Not or Lati no Author Organization [facility] Address [address] [place] [address] Care Team Providers Care Porcelain Enamel Laborer Name Role Phone Domi Altamirano NP Unavailable [phone] Hiren Horton MD Primary Care Provider [phone] Domi Altamirano NP Unavailable [phone] Domi Altamirano NP Unavailable [phone] Unallocated, Noms Provider Primary Care Provi [...] declined 10/08/2023 How often do you attend christian or druze serv ices? Never 10/08/2023 Do you belong to any clubs o r organizations such as christian groups, unions, fraternal or athletic groups, or [...] medical care, and heating? Very hard 10/08/2023 [facility] of Occupat ional Health - [...] time in the past [address] [facility], were you homeless or living [...] AM EDT Narrative 10/09/2023 7:09 [place] [address] Ultrasound Report Signed Patient: JAIME MERRILL MR#: [id number] : 1975 Acct:[id number] Age/Sex: 48 / F ADM Date: 10/08/23 Loc: US Attending Dr: Domi Howard NANOTECHNOLOGY ENGINEERING TECHNOLOGIST Ordering Physician: Doim Howard NP Date of Service: 10/08/23 Procedure(s): US pelvis transvaginal Accession Number(s): [id number] cc: Domi Altamirano NP; Domi Howard NP [address] [address] Patient Name: JAIME MERRILL MRN: [id number] date: 1975 Sex: F Assigned Patient Location: US Current Patient Location: Accession/Order Number: [id number] Exam Date: 10/08/2023 18:28 Report Date: 10/09/2023 [...] M.D. Signed By: 10/09/2309 DD/ 5 TD/TT: Infantry Indirect Fire Crewmember: Procedure Note Radiology, Radiologist, MD - 10/09/2023 [place] [address] Ultrasound Report Signed Patient: JAIME MERRILL KMR#: [id number] : 1975Acct:[id number] Age/Sex: 48 / FADM Date: 10/08/23 Loc: US Attending Dr: Domi Howard NP Ordering Physician: Domi Howard NP Date of Service: 10/08/23 Procedure(s): US pelvis transvaginal Accession Number(s): [id number] cc: Domi Altamirano NP; Domi Howard NP The [address] [address] Patient Name: JAIME MERRILL MRN: [id number] date: 1975 Sex: F Assigned Patient Location: [place] Current Patient Location: Accession/Order Number: [id number] Exam Date: 10/08/2023 18:28 Report Date: 10/09/2023 [...] 07:06 Dictated By: Joao Barbosa M.D. Signed By:10/09/23 0709 DD/ TD/TT: Infantry Indirect Fire Crewmember: us Generic External Data Provider [facility] IMAG[facility] Final Result documented in this encounter Visit Diagnoses Not on filedocumented in this encounter Care Teams Porcelain Enamel Laborer Relationship Specialty Start Date End Date Hiren Horton MD [address] [place] [address] PCP - General Family Medicine 07/26/23 10/13/24 Domi Altamirano NP [address] [place] [address] [facility]/24/[facility] Unallocated, Noms Provider, [place] [address] PCP - General Family Medicine 10/14/24 Domi Altamirano NP [address] [place] [address] Nurse Practitioner Family Medicine 03/26/22 10/13/24 Domi Altamirano NP [address] [place] [address] Nurse Practitioner Family Medicine 07/26/23 10/13/24 documented as of this encounter
--- OUTSIDE RECORDS SUMMARY | 2024-11-18 11:07 | XMS_ITS | Encounter Summary ---
Demographics Address [address] 03[address]27 [facility] [address] [place] [address] Mobile Phone Home Phone Work Phone Email Address Preferred Language en Marital Status Judaism Affiliation Unknown Race White Ethnic Group Not or Lati no Author Organization [facility] Address [address] [place] [address] Care Team Providers Care Broaching Machine Set Up Operator Name Role Phone Domi Altamirano ELECTRICAL MAINTENANCE TECHNICIAN Unavailable [phone] Hiren Horton MD Primary Care Provider [phone] Domi Altamirano ELECTRICAL MAINTENANCE TECHNICIAN Unavailable [phone] Domi Altamirano NP Unavailable [phone] Unallocated, Noms Provider Primary Care Provi taylor Encounter Details Date Type Department Care Team (Late st Contact Info) Description 09/25/2023 Orders Only [facility] [address] [place] [address] Carolyn Seven, OD [address] [id number] Social History Tobacco Use Types Packs/Day Years [...] Laterality Modality Radiographic Carmen ging Domi Altamirano ELECTRICAL MAINTENANCE TECHNICIAN IMG XR PROCEDURES Final Result * Diabetic Retinopathy Screening - OU - Both Eyes (09/25/2023 8:54 AM EDT) Anatomical Region Laterality Modality Head Other us Seven Carolyn OD OPHTH PHOTOGRAPHY Final Result documented in this encounter Visit Diagnoses Not on filedocumented in this encounter Care Teams Broaching Machine Set Up Operator Relationship Specialty Start Date End Date Hiren Horton MD [address] [place] [address] PCP - General Family Medicine 07/26/23 10/13/24 Domi Altamirano NP [address] [place] [address] PCP - [facility] 08/24/24 Unallocated, Noms Provider, [address] [place] [address] PCP - General Family Medicine 10/14/24 Domi Altamirano NP [address] [place] [address] Nurse Practitioner Family Medicine 03/26/22 10/13/24 Domi Altamirano NP [address] [place] [address] Nurse Practitioner Family Medicine 07/26/23 10/13/24 documented as of this encounter
--- OUTSIDE RECORDS SUMMARY | 2024-11-18 11:07 | XMS_ITS | Clinical Summary ---
Author Organization [facility] Address [address] [place] [address] Care Team Providers Care Foreman/Project Manager Name Role Phone Lizzette Malik Gunner ONCOLOGY COORDINATOR Primary Care Provider Domi Altamirano ONCOLOGY COORDINATOR Unavailable [phone] Allergies Active Allergy Reactions Criticality Noted Date [...] Blood 08/23/2020 Lipid Screening 08/23/2020 Sigmoidoscopy 08/23/2020 Influenza Vaccine (#1) 2024 Procedures Procedure Name Priority Date/Time Associated Diagnosis Comments COMPREHENSIVE METABOLIC PANEL STAT 06/19/2017 10:35 PM EDT from Last 3 Months or Most Recently Relevant to Health Maintenance Results * (ABNORMAL) COMP METABOLIC PANEL (06/19/2017 10:35 PM EDT) Protein, Total 6.9 6.3 - 8.0 g/dL 06/19/2017 11:09 PM EDT [facility] Albumin 4.4 3.9 - 4.9 g/dL 06/19/2017 11:09 PM EDT [facility] Calcium 9.4 8.5 - 10.2 mg/dL 06/19/2017 11:09 PM EDT [facility] Bilirubin, Total <0.2(L) 0.2 - 1.3 mg/dL 06/19/2017 11:09 PM EDT [facility] Alkaline Phosphatase 64 32 - 117 U/L 06/19/2017 11:09 PM EDT [facility] AST 11(L) 13 - 35 U/L 06/19/2017 11:09 PM [facility] Glucose 100(H) 74 - 99 mg/dL 06/19/2017 11:09 PM [facility] Comment: The [place] Diabetes Association (ADA) provides guidance for cutoff [...] Standards of Medical Care in Diabetes 2016, [place] [employer] Association. Diabetes Care. 2016.39(Suppl 1). BUN 11 7 - 21 mg/dL 06/19/2017 11:09 PM [facility] Creatinine 0.75 0.58 - 0.96 mg/dL 06/19/2017 11:09 PM [facility] Sodium 138 136 - 144 mmol/L 06/19/2017 11:09 PM [facility] Potassium 4.0 3.7 - 5.1 mmol/L 06/19/2017 11:09 PM [facility] Chloride 103 97 - 105 mmol/L 06/19/2017 11:09 PM [facility] CO2 24 22 - 30 mmol/L 06/19/2017 11:09 PM [facility] Anion Gap 11 9 - 18 mmol/L 06/19/2017 11:09 PM [facility] ALT 11 7 - 38 U/L 06/19/2017 11:09 PM [facility] eGFR- >60 06/19/2017 11:09 PM [facility] eGFR-All Other Races >60 . 06/19/2017 11:09 PM [facility] Comment: eGFR (Estimated GFR) Units [...] us Evan Ruiz MD LABORATORY Final Result [facility] [address] [place] [address] from Last 3 Months or Most Recently Relevant to Health Maintenance Insurance [employer] Care Teams Foreman/Project Manager Relationship Specialty Start Date End Date Lizzette Malik ONCOLOGY COORDINATOR PCP - General Family Medicine 12/04/14 Domi Altamirano CNP Referring Family Medicine 10/14/21
--- OUTSIDE RECORDS SUMMARY | 2024-11-18 11:07 | XMS_ITS | Clinical Summary ---
Author Organization [facility] Address [id number] [place] [address] Care Team Providers Care Truck Unloader Name Role Phone No Pcp, No Pcp [...] Health Maintenance Due Date Last Done Comments Depression Screening 1987 DTaP,Tdap and Td Vaccines [...] specimen type ThinPrep 10/04/2023 4:[address] [facility] Hpv 16 Negative Negative^N egative 10/04/2023 1:07 PM EDT [facility] Hpv 18 Negative Negative^N egative 10/04/2023 1:07 PM EDT [facility] Other high risk hpv Negative Negative^N egative 10/04/2023 1:07 PM EDT [facility] Comment: HPV types 31,33,35,39,45,52,56,58,59,66 and 68 DNA were undetectable. THINP 10/03/2023 4:33 AM EDT 10/03/2023 4:38 AM EDT us Domi Ledezma CORPORATE STAFF ACCOUNTANT-BOAT MOTOR MECHANIC LAB BLOOD ORDERABLES Fin al Result [facility] [address] [facility] [place] [address] [facility] [address] [facility] [place] [address] from Last 3 Months or Most Recently Relevant to Health Maintenance Insurance [facility] MEDICAID Care Teams Truck Unloader Relationship Specialty Start Date End Date No Pcp, [place] [address] PCP - General Family Medicine 05/16/17
--- OUTSIDE RECORDS SUMMARY | 2024-11-18 11:07 | XMS_ITS | Encounter Summary ---
Demographics Address [address] [facility] [address] [place] [address] Mobile Phone Home Phone Work Phone Email Address Preferred Language en Marital Status Amish Affiliation Unknown Race White Ethnic Group Not or Lati no Author Organization [facility] Address [address] [place] [address] Care Team Providers Care Powerhouse Mechanic Apprentice Name Role Phone Domi Altamirano CADWORX PIPING DESIGNER Unavailable [phone] Hiren Horton MD Primary Care Provider [phone] Domi Altamirano CADWORX PIPING DESIGNER Unavailable [phone] Domi Altamirano NP Unavailable [phone] Unallocated, Noms Provider Primary Care Provi taylor Encounter Details Date Type Department Care Team (Late st Contact Info) Description 09/17/2024 Abstract [facility] [address] [place] [address] Domi Altamirano CADWORX PIPING DESIGNER [address] [place] [address] Social History Tobacco Use Types [...] declined 10/08/2023 How often do you attend latter day or pentecostal serv ices? Never 10/08/2023 Do you belong to any clubs o r organizations such as latter day groups, unions, fraternal or athletic groups, or [...] medical care, and heating? Very hard 10/08/2023 [facility] [place] of Occupat ional Health - Occupational Stress [...] any time in the past 12 m [facility], were you homeless or [...] on filedocumented in this encounter Care Teams Powerhouse Mechanic Apprentice Relationship Specialty Start Date End Date Hiren Horton MD [address] [place] [address] PCP - General Family Medicine 07/26/23 10/13/24 Domi Altamirano NP [address] [place] [address] PCP - [facility] 08/24/24 Unallocated, Carol Ann Ferrell MD [address] [place] [address] PCP - General Family Medicine 10/14/24 Domi Altamirano NP [address] [place] [address] Nurse Practitioner Family Medicine 03/26/22 10/13/24 Domi Altamirano NP [address] [place] [address] Nurse Practitioner Family Medicine 07/26/23 10/13/24 documented as of this encounter
--- OUTSIDE RECORDS SUMMARY | 2024-11-18 11:07 | XMS_ITS | Encounter Summary ---
Demographics Address [address] [facility] [address] [place] [address] Mobile Phone Home Phone Work Phone Email Address Preferred Language en Marital Status Rastafarian Affiliation Unknown Race White Ethnic Group Not or Lati no Author Organization [facility] Address [address] [place] [address] Care Team Providers Care Gear Shaper Name Role Phone Domi Altamirano NP Unavailable [phone] Hiren Horton MD Primary Care Provider Domi Altamirano NP Unavailable [phone] Domi Altamirano NP Unavailable [phone] Unallocated, Noms Provider Primary Care Provi taylor Encounter Details Date Type Department Care Team (Late st Contact Info) Description 10/09/2023 Orders Only [facility] [address] [place] [address] Domi Munroe MD [address] [place], [place] [address] Social History Tobacco Use Types Packs/Day Years [...] declined 10/08/2023 How often do you attend orthodox or holiness serv ices? Never 10/08/2023 Do you belong to any clubs o r organizations such as orthodox groups, unions, fraternal or athletic groups, or [...] medical care, and heating? Very hard 10/08/2023 [facility] [place] of Occupat ional Health - Occupational Stress [...] Modality Pelvis Ultrasound us Domi Munroe MD IM US PROCEDURES Final Result documented in this encounter Visit Diagnoses Not on filedocumented in this encounter Care Teams Gear Shaper Relationship Specialty Start Date End Date Hiren Horton MD [address] [place] [address] PCP - General Family Medicine 07/26/23 10/13/24 Domi Altamirano NP [address] [place] [address] PCP - [place] [facility] 08/24/24 Unallocated, Noms Provider, [address] [place] [address] PCP - General Family Medicine 10/14/24 Domi Altamirano NP [address] [place] [address] Nurse Practitioner Family Medicine 03/26/22 10/13/24 Domi Altamirano NP [address] [place] [address] Nurse Practitioner Family Medicine 07/26/23 10/13/24 documented as of this encounter
--- OUTSIDE RECORDS SUMMARY | 2024-11-18 11:07 | XMS_ITS | Encounter Summary ---
Demographics Address [address] [facility] [address] [place] [address] Mobile Phone Home Phone Work Phone Email Address Preferred Language en Marital Status Mu-Ism Affiliation Unknown Race White Ethnic Group Not or Lati no Author Organization [facility] Address [address] [place] [address] Care Team Providers Care Director Digital Catalogue Name Role Phone Domi Altamirano DIVISION PLANT ENGINEER Unavailable [phone] Hiren Horotn MD Primary Care Provider [phone] Domi Altamirano DIVISION PLANT ENGINEER Unavailable [phone] Domi Altamirano NP Unavailable [phone] Unallocated, Noms Provider Primary Care Provi taylor Encounter Details Date Type Department Care Team (Late st Contact Info) Description 12/17/2023 Orders Only [facility] [address] [place] [address] Domi Altamirano DIVISION PLANT ENGINEER [address] [place] [address] Social History Tobacco Use Types Packs/Day Years [...] How often do you attend episcopalian or jew serv ices? Never 10/08/2023 Do you belong [...] medical care, and heating? Very hard 10/08/2023 [facility] [place] of Occupat ional Health - Occupational Stress [...] any time in the past 12 m [facility], were you homeless or living [...] Modality Chest Radiographic Carmen ging Domi Altamirano DIVISION PLANT ENGINEER IMG XR PROCEDURES Final Result documented in this encounter Visit Diagnoses Not on filedocumented in this encounter Care Teams Director Digital Catalogue Relationship Specialty Start Date End Date Hiren Horton MD [address] [place] [address] PCP - General Family Medicine 07/26/23 10/13/24 Domi Altamirano NP [address] [place] [address] PCP - [facility] 08/24/24 Unallocated, Noms Mariaelena, [address] [place] [address] PCP - General Family Medicine 10/14/24 Domi Altamirano NP [address] [place] [address] Nurse Practitioner Family Medicine 03/26/22 10/13/24 Domi Altamirano NP [address] [place] [address] Nurse Practitioner Family Medicine 07/26/23 10/13/24 documented as of this encounter
--- OUTSIDE RECORDS SUMMARY | 2024-11-18 11:07 | XMS_ITS | Encounter Summary ---
Demographics Address [address] [facility] [address] [place] [address] Mobile Phone Home Phone Work Phone Email Address [email or web address] Preferred Language en Marital Status Anabaptist Affiliation Unknown Race White Ethnic Group Not or Lati no Author Organization [facility] Address [address] [place] [address] Care Team Providers Care Central Scheduler Name Role Phone Domi Altamirano TECHNICAL SOLUTIONS ENGINEER Unavailable [phone] Hiren Horton MD Primary Care Provider [phone] Domi Altamirano TECHNICAL SOLUTIONS ENGINEER Unavailable [phone] Domi Altamirano NP Unavailable [phone] Unallocated, Noms Provider Primary Care Provi taylor Encounter Details Date Type Department Care Team (Late st Contact Info) Description 09/17/2024 Abstract [facility] [address] [place] [address] Domi Altamirano TECHNICAL SOLUTIONS ENGINEER [address] [place] [address] Social History Tobacco Use Types [...] declined 10/08/2023 How often do you attend mormon or mormonism serv ices? Never 10/08/2023 Do you belong to any clubs o r organizations such as mormon groups, unions, fraternal or athletic groups, or [...] medical care, and heating? Very hard 10/08/2023 [facility] [place] of Occupat ional Health - Occupational Stress [...] any time in the past 12 m [facility], were you homeless or living in a [...] on filedocumented in this encounter Care Teams Central Scheduler Relationship Specialty Start Date End Date Hiren Horton MD [address] [place] [address] PCP - General Family Medicine 07/26/23 10/13/24 Domi Altamirano NP [address] [place] [address] PCP - [facility] 08/24/24 Unallocated, Carol Ann Ferrell MD [address] [place] [address] PCP - General Family Medicine 10/14/24 Domi Altamirano NP [address] [place] [address] Nurse Practitioner Family Medicine 03/26/22 10/13/24 Domi Altamirano NP [address] [place] [address] Nurse Practitioner Family Medicine 07/26/23 10/13/24 documented as of this encounter
--- OUTSIDE RECORDS SUMMARY | 2024-11-18 11:07 | XMS_ITS | Encounter Summary ---
Author Organization [facility] Address [address] [place] [address] Care Team Providers Care It Infrastructure Architect Name Role Phone Domi Altamirano ACCOUNTANT BOOKKEEPER Unavailable [phone] Hiren Horton MD Primary Care Provider Domi Altamirano ACCOUNTANT BOOKKEEPER Unavailable [phone] Domi Altamirano NP Unavailable [phone] Unallocated, Noms Provider Primary Care Provi taylor Encounter Details Date Type Department Care Team (Late st Contact Info) Description 10/03/2023 Orders Only [facility] [address] [place] [address] Orly Rushing MD [address] [place] [address] Social History Tobacco Use Types Packs/Day [...] on filedocumented in this encounter Care Teams It Infrastructure Architect Relationship Specialty Start Date End Date Hiren Horton MD [address] [place] [address] PCP - General Family Medicine 07/26/23 10/13/24 Domi Altamirano NP [address] [place] [address] PCP - [facility] 08/24/24 Unallocated, Noms Provider, [address] [place] [address] PCP - General Family Medicine 10/14/24 Domi Altamirano NP [address] [place] [place] [address] Nurse Practitioner Family Medicine 03/26/22 10/13/24 Domi Altamirano NP [address] [place] [address] Nurse Practitioner Family Medicine 07/26/23 10/13/24 documented as of this encounter
--- OUTSIDE RECORDS SUMMARY | 2024-11-18 11:07 | XMS_ITS | Encounter Summary ---
Demographics Address [address] [facility] [address] [place] [address] Mobile Phone Home Phone Work Phone Email Address Preferred Language en Marital Status Congregation Affiliation Unknown Race White Ethnic Group Not or Lati no Author Organization [facility] Address [address] [place] [address] Care Team Providers Care Lithographers Printer Name Role Phone Domi Altamirano CAFETERIA ATTENDANT Unavailable [phone] Hiren Horton MD Primary Care Provider [phone] Domi Altamirano CAFETERIA ATTENDANT Unavailable [phone] Domi Altamirano NP Unavailable [phone] Unallocated, Noms Provider Primary Care Provi taylor Encounter Details Date Type Department Care Team (Late st Contact Info) Description 09/17/2024 Orders Only [facility] [address] [place] [address] Li Ku MD [address] [place] [address] Social History Tobacco Use Types Packs/Day [...] declined 10/08/2023 How often do you attend evangelical or hinduism serv ices? Never 10/08/2023 Do you belong to any clubs o r organizations such as evangelical groups, unions, fraternal or athletic groups, or [...] medical care, and heating? Very hard 10/08/2023 [facility] of Occupat ional Health - Occupational [...] any time in the past 12 m [facility], were you homeless or [...] on filedocumented in this encounter Care Teams Lithographers Printer Relationship Specialty Start Date End Date Hiren Horton MD [address] [place] [address] PCP - General Family Medicine 07/26/23 10/13/24 Domi Altamirano NP [address] [place] [address] PCP - [place] [facility] 08/24/24 Unallocated, N[place] [address] PCP - General Family Medicine 10/14/24 Domi Altamirano NP [address] [place] [address] Nurse Practitioner Family Medicine 03/26/22 10/13/24 Domi Altamirano NP [address] [place] [address] Nurse Practitioner Family Medicine 07/26/23 10/13/24 documented as of this encounter
--- OUTSIDE RECORDS SUMMARY | 2024-11-18 11:07 | XMS_ITS | Encounter Summary ---
Demographics Address [address] [facility] [address] [place] [address] Mobile Phone Home Phone Work Phone Email Address Preferred Language en Marital Status Christianity Affiliation Unknown Race White Ethnic Group Not or Lati no Author Organization [facility] Address [address] [place] [address] Care Team Providers Care Television Cabinet Finisher Name Role Phone Domi Altamirano CLASSIFICATION CONTROL CLERK Unavailable [phone] Hiren Horton MD Primary Care Provider [phone] Domi Altamirano CLASSIFICATION CONTROL CLERK Unavailable [phone] Domi Altamirano NP Unavailable [phone] Unallocated, Noms Provider Primary Care Provi taylor Encounter Details Date Type Department Care Team (Late st Contact Info) Description 09/18/2024 Abstract [facility] [address] [place] [address] Domi Altamirano CLASSIFICATION CONTROL CLERK [address] [place] [address] Social History Tobacco Use Types [...] declined 10/08/2023 How often do you attend synagogue or scientology serv ices? Never 10/08/2023 Do you belong to any clubs o r organizations such as synagogue groups, unions, fraternal or athletic groups, or [...] medical care, and heating? Very hard 10/08/2023 [facility] [place] of Occupat ional Health - Occupational Stress [...] any time in the past 12 m [facility], were you homeless or living in [...] on filedocumented in this encounter Care Teams Television Cabinet Finisher Relationship Specialty Start Date End Date Hiren Horton MD [address] [place] [address] PCP - General Family Medicine 07/26/23 10/13/24 Domi Altamirano NP [address] [place] [address] PCP - [facility] 08/24/24 Unallocated, Carol Ann Ferrell MD [address] [place] [address] PCP - General Family Medicine 10/14/24 Domi Altamirano NP [address] [place] [address] Nurse Practitioner Family Medicine 03/26/22 10/13/24 Domi Altamirano NP [address] [place] [address] Nurse Practitioner Family Medicine 07/26/23 10/13/24 documented as of this encounter
--- OUTSIDE RECORDS SUMMARY | 2024-11-18 11:07 | XMS_ITS | Encounter Summary ---
Demographics Address [address] [facility] [address] [place] [address] Mobile Phone Home Phone Work Phone Email Address Preferred Language en Marital Status Methodist Affiliation Unknown Race White Ethnic Group Not or Lati no Author Organization [facility] Address [address] [place] [address] Care Team Providers Care Forest Practices Field Coordinator Name Role Phone Domi Altamirano RAIL CAR LOADER Unavailable [phone] Hiren Horton MD Primary Care Provider [phone] Domi Altamirano RAIL CAR LOADER Unavailable [phone] Domi Altamirano NP Unavailable [phone] Unallocated, Noms Provider Primary Care Provi taylor Encounter Details Date Type Department Care Team (Late st Contact Info) Description 09/22/2024 Abstract [facility] [address] [place] [address] Domi Altamirano RAIL CAR LOADER [address] [place] [address] Social History Tobacco Use Types [...] declined 10/08/2023 How often do you attend jain or mosque serv ices? Never 10/08/2023 Do you belong to any clubs o r organizations such as jain groups, unions, fraternal or athletic groups, or [...] medical care, and heating? Very hard 10/08/2023 [facility] [place] of Occupat ional Health - Occupational Stress [...] any time in the past 12 m [facility], were you homeless or living in a snf (including now)? Yes 10/08/2023 Comments Unknown Sex and Gender Information Value Date Recorded Sex Assigned at Not on file Legal Sex Female 6:59 PM EDT Gender Identity Not on file Sexual Orientation Not on file documented as of this encounter Plan of Treatment Not on file documented as of this encounter Visit Diagnoses Not on filedocumented in this encounter Care Teams Forest Practices Field Coordinator Relationship Specialty Start Date End Date Hiren Horton MD [address] [place] [address] PCP - General Family Medicine 07/26/23 10/13/24 Domi Altamirano NP [address] [place] [address] PCP - [facility] 08/24/24 Unallocated, Carol Ann Ferrell MD [address] [place] [address] PCP - General Family Medicine 10/14/24 Domi Altamirano NP [address] [place] [address] Nurse Practitioner Family Medicine 03/26/22 10/13/24 Domi Altamirano NP [address] [place] [address] Nurse Practitioner Family Medicine 07/26/23 10/13/24 documented as of this encounter
--- OUTSIDE RECORDS SUMMARY | 2024-11-18 11:07 | XMS_ITS | Encounter Summary ---
Demographics Address [address] [place] [address] Mobile Phone Home Phone Work Phone Email Address Preferred Language en Marital Status Spiritism Affiliation Unknown Race White Ethnic Group Not or Lati no Author Organization [facility] Address [address] [place] [address] Care Team Providers Care Inspector Shells Name Role Phone Domi Altamirano NP Unavailable [phone] Hiren Horton MD Primary Care Provider Domi Altamirano NP Unavailable [phone] Domi Altamirano NP Unavailable [phone] Unallocated, Noms Provider Primary Care Provi taylor Encounter Details Date Type Department Care Team (Late st Contact Info) Description 09/25/2023 Clinisync Result Encounter [facility] External Department Unsolicited Domi Altamirano, ASSEMBLER SHOW MOTOR [address] [place] [address] Social History Tobacco Use Types Packs/Day Years [...] EDT Narrative 09/25/2023 3:20 [place] [address] Mammography Report Signed Patient: JAIME MERRILL MR#: [id number] : 1975 Acct:[id number] Age/Sex: 48 / F ADM Date: 09/24/23 Loc: MAMMO Attending Dr: Domi Altamirano NP Ordering Physician: Domi Altamirano NP Results: Date of Service: 09/24/23 Follow Up: Procedure(s): MM tomosynthesis screening BI Accession Number(s): [id number] cc: Domi Altamirano NP Patient Name: JAIME MERRILL MR#: [id number] : 1975 Exam Date: 09/24/2023 Ordering Doctor: ARELY ALTAMIRANO CNP RADIOLOGY REPORT PROCEDURE: MM TOMOSYNTHESIS SCREENING BI COMPARISON: MG MAMM SCREEN 3D STVEE CAD, 06/03/2021. INDICATIONS: Screening for malignancy Calculator Name NCI Breast Cancer Risk Assessment Tool 5 Year Breast Cancer Risk 0.70% Lifetime Breast Cancer Risk 6.70% Personal Breast Cancer No Personal Ovarian Cancer No Treatments None Family Cancers Father with unknown cancer at age 55; Grandmother-maternal with lymphoma cancer at age 63. LOCATION: [facility] BREAST COMPOSITION: The breasts are heterogeneously [...] Signed By: 09/25/23 1520 DD/ 1519 TD/TT: Kitchen Helper: Procedure Note Radiology, Radiologist, MD - 09/25/2023 [place] [address] Mammography Report Signed Patient: JAIME MERRILL KMR#: [id number] : 1975Acct:[id number] Age/Sex: 48 / FADM Date: 09/24/23 Loc: MAMMO Attending Dr: Domi Altamirano ASSEMBLER SHOW MOTOR Ordering Physician: Domi Altamirano NPResults: Date of Service: 09/24/23Follow Up: Procedure(s): MM tomosynthesis screening BI Accession Number(s): [id number] cc: Domi Altamirano ASSEMBLER SHOW MOTOR Patient Name: JAIME MERRILL MR#: [id number] : 1975 Exam Date: 09/24/2023 Ordering Doctor: ARELY ALTAMIRANO ELECTRIC TRUCK OPERATOR RADIOLOGY REPORT PROCEDURE: MM TOMOSYNTHESIS SCREENING [...] lymphoma cancer at age 63. LOCATION: [facility] BREAST COMPOSITION: The breasts are heterogeneously [...] M.D. Signed By:09/25/23 1520 DD/ 1519 TD/TT: Kitchen Helper: Domi Altamirano NP [facility] Final Result documented in this encounter Visit Diagnoses Not on filedocumented in this encounter Care Teams Inspector Shells Relationship Specialty Start Date End Date Hiren Horton MD [address] [place] [address] PCP - General Family Medicine 07/26/23 10/13/24 Domi Altamirano NP [address] [place] [address] PCP - [facility] 08/24/24 Unallocated, Noms Mariaelena, [address] [place] [address] PCP - General Family Medicine 10/14/24 Domi Altamirano NP [address] [place] [address] Nurse Practitioner Family Medicine 03/26/22 10/13/24 Domi Altamirano NP [address] [place] [address] Nurse Practitioner Family Medicine 07/26/23 10/13/24 documented as of this encounter
--- OUTSIDE RECORDS SUMMARY | 2024-11-18 11:08 | XMS_ITS | Encounter Summary ---
Demographics Address [address] [facility] [address] [place] [address] Mobile Phone Home Phone Work Phone Email Address Preferred Language en Marital Status Denominational Affiliation Unknown Race White Ethnic Group Not or Lati no Author Organization [facility] Address [address] [place] [address] Care Team Providers Care Mechanical Insulator Name Role Phone Domi Altamirano UPFITTER Unavailable [phone] Hiren Horton MD Primary Care Provider [phone] Domi Altamirano UPFITTER Unavailable [phone] Domi Altamirano NP Unavailable [phone] Unallocated, Noms Provider Primary Care Provi taylor Encounter Details Date Type Department Care Team (Late st Contact Info) Description 12/18/2023 Orders Only [facility] [address] [place] [address] Domi Altamirano UPFITTER [address] [place] [address] Social History Tobacco Use Types Packs/Day Years [...] declined 10/08/2023 How often do you attend sabianist or congregational serv ices? Never 10/08/2023 Do you belong to any clubs o r organizations such as sabianist groups, unions, fraternal or athletic groups, or [...] heating? Very hard 10/08/2023 [facility] [place] of Occupat ional Health - Occupational Stress [...] any time in the past 12 m [facility], were you homeless or living in a longterm (including now)? Yes 10/08/2023 Comments Unknown Sex [...] * SCANNED LABS (12/18/2023 11:09 AM EDT) us Domi Altamirano NP LAB CHG PERFORMABLES Final Resu lt documented in this encounter Visit Diagnoses Not on filedocumented in this encounter Care Teams Mechanical Insulator Relationship Specialty Start Date End Date Hiren Horton MD [address] [place] [address] PCP - General Family Medicine 07/26/23 10/13/24 Domi Altamirano NP [address] [place] [address] [facility]/24/[facility] Unallocated, Noms Provider, [place] [address] PCP - General Family Medicine 10/14/24 Domi Altamirano NP [address] [place] [address] Nurse Practitioner Family Medicine 03/26/22 10/13/24 Domi Altamirano NP [address] [place] [address] Nurse Practitioner Family Medicine 07/26/23 10/13/24 documented as of this encounter
[2024-11-18 12:44] LABS: Hematocrit 26.3 % (36.0-48.0); Hemoglobin 7.6 g/dL (12.0-16.0); Immature Granulocytes Abs Auto 0.21 10^3/uL (0.00-0.03); Immature Granulocytes Pct Auto 1.2 % (0.0-0.5); Lymphocytes Absolute Auto 3.3 10^3/uL (1.2-3.8); Mean Corpuscular HGB Conc 28.9 g/dL (29.9-35.2); Mean Corpuscular Hemoglobin 27.1 pg (26.7-34.0); Mean Corpuscular Volume 93.9 fL (81.0-99.0); Platelet Count 732 10^3/uL (150-450); Red Blood Count 2.80 10^6/uL (4.20-5.40); White Blood Count 17.0 10^3/uL (4.0-11.0)
== END 2024-11-18 11:05 | disposition home or self-care (01) ==
LOC: LAB 11:05
PROVIDERS: PCP Family Medicine; Visit Provider Family Medicine
DX: D47.3 Essential (hemorrhagic) thrombocythemia (principal)
CPT/HCPCS: 36415; 80053; 85025

== ENCOUNTER 2024-11-20 12:31 | Outpatient (OUT) | payer BC, SELFPAY ==
[2024-11-20 12:56] LABS: Mean Corpuscular HGB Conc 28.4 g/dL (29.9-35.2); Mean Corpuscular Hemoglobin 27.6 pg (26.7-34.0); Mean Corpuscular Volume 97.2 fL (81.0-99.0); White Blood Count 22.7 10^3/uL (4.0-11.0)
[2024-11-20 13:02] LABS: Hematocrit 21.1 % (36.0-48.0); Hemoglobin 6.0 g/dL (12.0-16.0)
[2024-11-20 13:03] LABS: Platelet Count 1098 10^3/uL (150-450)
[2024-11-20 13:25] LABS: Alanine Aminotransferase 30 U/L (14-59); Albumin Globulin Ratio 0.2; Albumin Level 1.2 g/dL (3.4-5.0); Alkaline Phosphatase 573 U/L (46-116); Anion Gap 15.2; Aspartate Amino Transferase 14 U/L (15-37); Basophils Abs Manual 0.00 10^3/uL (0.00-0.10); Basophils Percent Manual 0.0 % (0.2-2.0); Blood Urea Nitrogen 16.0 mg/dL (7.0-18.0); Calcium 9.9 mg/dL (8.5-10.1); Carbon Dioxide 22.7 mmol/L (21.0-32.0); Chloride 99 mmol/L (98-107); Eosinophils Absolute Manual 0.00 10^3/uL (0.00-0.70); Eosinophils Percent Manual 0.0 % (0.9-7.0); Estimated GFR (African America >60 (>=60 mL/min/1.73m^2); Estimated GFR (Non-African Ame >60 (>=60 mL/min/1.73m^2); Globulin 6.9 g/dL; Glucose 117 mg/dL (74-106); Lymphocytes Absolute Manual 3.85 10^3/uL (1.20-3.80); Lymphocytes Percent Manual 17.0 % (20.5-60.0); Monocytes Absolute Manual 0.90 10^3/uL (0.30-0.80); Monocytes Percent Manual 4.0 % (1.7-12.0); Potassium 3.9 mmol/L (3.5-5.1); Red Blood Count 2.17 10^6/uL (4.20-5.40); Segmented Neut Absolute Manual 17.93 10^3/uL (1.4-6.5); Segmented Neutrophils % Manual 79.0 (43.0-75.0); Sodium 133 mmol/L (136-145); Total Protein 8.1 g/dL (6.4-8.2)
== END 2024-11-20 12:32 | disposition home or self-care (01) ==
LOC: LAB 12:32
PROVIDERS: PCP Family Medicine; Visit Provider Internal Medicine
DX: D47.1 Chronic myeloproliferative disease (principal); D47.3 Essential (hemorrhagic) thrombocythemia; D75.839 Thrombocytosis, unspecified
CPT/HCPCS: 36415; 80053; 85007; 85027

== ENCOUNTER 2024-11-21 08:44 | Outpatient (RCR) | payer BC, SELFPAY ==
[2024-11-21] VITALS (8 sets, daily range): BP systolic 93–100; BP diastolic 63–69; PULSE 114–144; TEMP 36.6–37.4; O2SAT 50–98
--- NOTE | 2024-11-21 12:11 | PC.NURSE ---
1130: Tolerating PRBC transfusion without s&s of adverse reaction. IV site remains clear. 1210: Lunch tray ordered.
--- NOTE | 2024-11-21 12:41 | PC.NURSE ---
1229: First unit PRBC infused without s&s of adverse reactions. VSS. 1235: Second unit PRBC initiated at this time. Lunch tray provided. Denies need.
--- NOTE | 2024-11-21 12:55 | PC.NURSE ---
Tolerating second unit PRBC without c/o. VSS.
== END 2024-11-23 23:59 | disposition home or self-care (01) ==
LOC: INF 08:44
PROVIDERS: PCP Family Medicine; Visit Provider Internal Medicine
DX: D64.9 Anemia, unspecified (principal)
CPT/HCPCS: 36415; 36430; 86850; 86900; 86901; 86923; P9016

== ENCOUNTER 2024-11-26 08:16 | Inpatient (IN) | payer BC, SELFPAY ==
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
--- OUTSIDE RECORDS SUMMARY | 2024-11-13 16:10 | XMS_ITS ---
Author Organization The [facility] in [place] Address [address] [place] [address] Care Team Providers Care Tower Control Operator Name Role Phone Mansoor Swenson Primary Care Provider Results Component Value Reference Range Notes CBC AUTO DIFF Reviewed date:11/18/2024 08:03:28 PM Interpretation: Performing Lab: Notes/Report: [facility] , White Blood Count 17.0 4.0-11.0 10 3/uL Red Blood Count 2.80 4.20-5.40 10 6/uL Hemoglobin 7.6 12.0-16.0 g/dL Hematocrit 26.3 36.0-48.0 % Mean Corpuscular Volume 93.9 81.0-99.0 fL Mean Corpuscular Hemoglobin 27.1 26.7-34.0 pg Mean Corpuscular HGB Conc 28.9 29.9-35.2 g/dL Red Cell Distribution Width 21.2 11.0-15.0 % Platelet Count 732 150-450 10 3/uL Mean Platelet Volume 10.2 9.5-13.5 fL Neutrophils Percent Auto 71.8 43.0-75.0 % Lymphocytes Percent Auto 19.2 20.5-60.0 % Monocytes Percent Auto 7.2 1.7-12.0 % Eosinophils Percent Auto 0.4 0.9-7.0 % Basophils Percent Auto 0.2 0.2-2.0 % Immature Granulocytes Pct Auto 1.2 0.0-0.5 % Neutrophils Absolute Auto 12.2 1.4-6.5 10 3/uL Lymphocytes Absolute Auto 3.3 1.2-3.8 10 3/uL Monocytes Absolute Auto 1.2 0.3-0.8 10 3/uL Eosinophils Absolute Auto 0.1 0.0-0.7 10 3/uL Basophils Absolute Auto 0.0 0.0-0.1 10 3/uL Immature Granulocytes Abs Auto 0.21 0.00-0.03 10 3/uL Performing Lab: see note ML - [facility] REASON FOR VISIT review labs Encounters Encounter Location Date Provider Diagnosis [facility] [address] [place] [address] 11/13/2024 Mansoor Swenson Thrombocythemia D47. 3 Assessments Encounter Date Diagnosis (ICD Code) Assessment Notes Treatment Notes Treatment Clinical Notes Section Notes 11/13/2024 Thrombocythemia (ICD-10 - D47.3) Plan Of Treatment No Information Progress Notes * Rylee MERRILL KDOB:[birth year] (49 yo F)Acc No.[id number]:11/13/2024 Patient: Olaf DAVID Rylee Yahir :1975 A ge:49 Y S ex:Female Address:[facility] [address], [address] Subjective: * Chief Complaints: * R eview labs * Medical History: * Surgical History: * Hospitalization/Major Diagno stic Procedure: * Medications: Objective: * Vitals: * Physical Examination: Assessment: * Assessment: 1. T hrombocythemia - D47.3 (Primary) Plan: * Treatment: * Procedure Codes: * true * Date: Generated for Colby woods/Titi/eTchuysmitting on: 0 11/26/2024 08:27 AM EDT
--- OUTSIDE RECORDS SUMMARY | 2024-11-18 04:51 | XMS_ITS ---
Author Organization [facility] in [place] Address [address] [place] [address] Care Team Providers Care Brusher And Shearer Name Role Phone Mansoor Swenson Primary Care Provider REASON FOR VISIT Glucerna Medications Medication SIG (Take, Route, Frequency, Duration) Notes Start Date End Date Status Glucerna Shake - Drink 237ml Orally three times daily DXE43 for 30 days 90 Bottles for 30 days- needs 21,330 ml for one month 11/18/2024 Active Problems Problem Type SNOMED Code ICD Code Onset Dates Problem Status W/U Status Risk Notes Problem Severe malnutrition (90539062) Severe malnutrition (E43) Active confirmed Encounters Encounter Location Date Provider Diagnosis [facility] [address] [place] [address] 11/18/2024 Mansoor Swenson Plan Of Treatment Medication Medication Name Sig Start Date Stop Date Notes Glucerna Shake - Drink 237ml Orally three times daily DXE43 for 30 days 11/18/2024 90 Bottles for 30 da ys- needs 21,330 ml for one month Progress Notes * Rylee MERRILL KDOB:[birth year] (49 yo F)Acc No.[id number]:11/18/2024 Patient: Olaf HERNANDEZ Rylee Sinclair :1975 A ge:49 Y S ex:Female Address:[facility] [address] [facility] [address] [place] [address], [address] * Refills Start Glucerna Shake Liquid, -, Orally, 90 Each, Drink 237ml, three times daily DXE43, 30 days, Refills=11 * true * Date: Generated for Colby woods/Titi/Valerieitting on: 0 11/26/2024 08:30 AM EDT
--- OUTSIDE RECORDS SUMMARY | 2024-11-18 16:02 | XMS_ITS ---
Author Organization [facility] in [place] Address [address] [place] [address] Care Team Providers Care Nuclear Medicine Pet Ct Technologist Name Role Phone Mansoor Swenson Primary Care Provider REASON FOR VISIT lab results Encounters Encounter Location Date Provider Diagnosis [facility] [address] [place] [address] 11/18/2024 Mansoor Swenson Plan Of Treatment No Information Progress Notes * Rylee MERRILL KDOB:[birth year] (49 yo F)Acc No.[id number]:11/18/2024 Patient: Olaf Rylee HERNANDEZ :1975 A ge:49 Y S ex:Female Address:[facility] [address] [facility] [address] [place] [address], [address] * true * Date: Generated for Colby woods/Titi/eTransmitting on: 0 11/26/2024 08:31 AM EDT
--- OUTSIDE RECORDS SUMMARY | 2024-11-20 09:07 | XMS_ITS ---
Author Organization [facility] in [place] Address [address] [place] [address] Care Team Providers Care Rehabilitation Supervisor Name Role Phone Mansoor Swenson Primary Care Provider REASON FOR VISIT Transfusion Encounters Encounter Location Date Provider Diagnosis [facility] [address] [place] [address] 11/20/2024 Mansoor Swenson Plan Of Treatment No Information Progress Notes * Rylee MERRILL KDOB:[birth year] (49 yo F)Acc No.[id number]:11/20/2024 Patient: Olaf Rylee HERNANDEZ :1975 A ge:49 Y S ex:Female Address:[facility] [address] [facility] [address] [place] [address], [address] * true * Date: Generated for Colby woods/Titi/eTransmitting on: 0 11/26/2024 08:29 AM EDT
--- OUTSIDE RECORDS SUMMARY | 2024-11-21 06:19 | XMS_ITS ---
Author Organization The [facility] in [place] Address [address] [place] [address] Care Team Providers Care Forklift Truck Operator Name Role Phone Mansoor Swenson Primary Care Provider [phone] REASON FOR VISIT PICC placement Encounters Encounter Location Date Provider Diagnosis [facility] [address] [place] [address] 11/21/2024 Mansoor Swenson Plan Of Treatment No Information Progress Notes * Rylee MERRILL KDOB:[birth year] (49 yo F)Acc No.[id number]:11/21/2024 Patient: Olaf Rylee HERNANDEZ :1975 A ge:49 Y S ex:Female Address:[facility] [address] [facility] [address] [place] [address], [phone] * true * Date: Generated for Colby woods/Titi/eTransmitting on: 0 11/26/2024 08:31 AM EDT
[2024-11-26] VITALS (30 sets, daily range): BP systolic 122–138; BP diastolic 77–92; PULSE 121–138; TEMP 36.1–37.1; O2SAT 85–98; BMI 14.5; BMI 15.7
[2024-11-26] MEDS: HYDROMORPHONE HCL 1 MG/ML CARTRIDGE IV ×2 (08:28→08:48)
--- OUTSIDE RECORDS SUMMARY | 2024-11-26 08:28 | XMS_ITS | Encounter Summary ---
Demographics Address [address] [facility] [address] [place] [address] Mobile Phone Home Phone Work Phone Email Address Preferred Language en Marital Status Christianity Affiliation Unknown Race White Ethnic Group Not or Lati no Author Organization [facility] Address [address] [place] [address] Care Team Providers Care Senior Office Assistant Name Role Phone Domi Altamirano NP Unavailable [phone] Hiren Horton MD Primary Care Provider Domi Altamirano EMERGENCY PLANNER Unavailable [phone] Domi Altamirano NP Unavailable [phone] Unallocated, Noms Provider Primary Care Provi taylor Encounter Details Date Type Department Care Team (Late st Contact Info) Description 09/17/2024 Abstract [facility] [address] [place] [address] Domi Altamirano, EMERGENCY PLANNER [address] [place] [address] Social History Tobacco Use Types Packs/Day Years [...] declined 10/08/2023 How often do you attend advent or roman catholic serv ices? Never 10/08/2023 Do you belong to any clubs o r organizations such as advent groups, unions, fraternal or athletic groups, or [...] care, and heating? Very hard 10/08/2023 [facility] of Occupat ional Health - Occupational Stress [...] any time in the past 12 m [facility], were you homeless or living in [...] on filedocumented in this encounter Care Teams Senior Office Assistant Relationship Specialty Start Date End Date Hiren Horton MD PCP - General Family Medicine 07/26/23 10/13/24 Domi Altamirano NP [address] [place] [address] PCP - [place] [employer] 08/24/24 Unallocated, Noms Provider, [address] [place] [address] PCP - General Family Medicine 10/14/24 Domi Altamirano NP Nurse Practitioner Family Medicine 03/26/22 10/13/24 Domi Altamirano NP Nurse Practitioner Family Medicine 07/26/23 10/13/24 documented as of this encounter
--- OUTSIDE RECORDS SUMMARY | 2024-11-26 08:28 | XMS_ITS | Encounter Summary ---
Demographics Address [address] [facility] [address] [place] [address] Mobile Phone Home Phone Work Phone Email Address Preferred Language en Marital Status Advent Affiliation Unknown Race White Ethnic Group Not or Lati no Author Organization [facility] Address [address] [place] [address] Care Team Providers Care Plating Department Helper Name Role Phone Domi Altamirano NP Unavailable [phone] Hiren Horton MD Primary Care Provider [phone] Domi Altamirano ROLL GRINDER OPERATOR Unavailable [phone] Domi Altamirano NP Unavailable [phone] Unallocated, Noms Provider Primary Care Provi taylor Encounter Details Date Type Department Care Team (Late st Contact Info) Description 09/16/2024 Abstract [facility] [address] [place] [address] Domi Altamirano, ROLL GRINDER OPERATOR [address] [place] [address] Social History Tobacco Use Types Packs/Day Years [...] declined 10/08/2023 How often do you attend nondenominational or oriental orthodox serv ices? Never 10/08/2023 Do you belong to any clubs o r organizations such as nondenominational groups, unions, fraternal or athletic groups, or [...] medical care, and heating? Very hard 10/08/2023 [facility] [place] of Occupat ional Health - Occupational Stress [...] on filedocumented in this encounter Care Teams Plating Department Helper Relationship Specialty Start Date End Date Hiren Horton MD PCP - General Family Medicine 07/26/23 10/13/24 Domi Altamirano NP [address] [place] [address] PCP - [place] [employer] 08/24/24 Unallocated, Noms Provider, [address] [place] [address] PCP - General Family Medicine 10/14/24 Domi Altamirano NP Nurse Practitioner Family Medicine 03/26/22 10/13/24 Domi Altamirano NP Nurse Practitioner Family Medicine 07/26/23 10/13/24 documented as of this encounter
--- OUTSIDE RECORDS SUMMARY | 2024-11-26 08:28 | XMS_ITS | Encounter Summary ---
Demographics Address [address] [facility] [address] [place] [address] Mobile Phone Home Phone Work Phone Email Address Preferred Language en Marital Status Advent Affiliation Unknown Race White Ethnic Group Not or Lati no Author Organization [facility] Address [address] [place] [address] Care Team Providers Care Social Contact Worker Name Role Phone Domi Altamirano GRANULATOR OPERATOR Unavailable [phone] Hiren Horton MD Primary Care Provider [phone] Domi Altamirano GRANULATOR OPERATOR Unavailable [phone] Domi Altamirano NP Unavailable [phone] Unallocated, Noms Provider Primary Care Provi taylor Encounter Details Date Type Department Care Team (Late st Contact Info) Description 09/17/2024 Orders Only [facility] [address] [facility] [place] [address] Li Ku MD [address] [place] [address] Social History Tobacco Use Types Packs/Day [...] declined 10/08/2023 How often do you attend buddhism or taoism serv ices? Never 10/08/2023 Do you belong to any clubs o r organizations such as buddhism groups, unions, fraternal or athletic groups, or [...] care, and heating? Very hard 10/08/2023 [facility] of Occupat ional Health - Occupational [...] any time in the past 12 m [facility], were you homeless or living [...] on filedocumented in this encounter Care Teams Social Contact Worker Relationship Specialty Start Date End Date Hiren Horton MD PCP - General Family Medicine 07/26/23 10/13/24 Domi Altamirano NP [address] [place] [address] PCP - [place] [employer] 08/24/24 Unallocated, Carol Ann Ferrell MD [address] [place] [address] PCP - General Family Medicine 10/14/24 Domi Altamirano NP Nurse Practitioner Family Medicine 03/26/22 10/13/24 Domi Altamirano NP Nurse Practitioner Family Medicine 07/26/23 10/13/24 documented as of this encounter
--- OUTSIDE RECORDS SUMMARY | 2024-11-26 08:28 | XMS_ITS | Encounter Summary ---
Demographics Address [address] [facility] [address] [place] [address] Mobile Phone Home Phone Work Phone Email Address [email or web address] Preferred Language en Marital Status Faith Affiliation Unknown Race White Ethnic Group Not or Lati no Author Organization [facility] Address [address] [place] [address] Care Team Providers Care Skidway Worker Name Role Phone Domi Altamirano NP Unavailable [phone] Hiren Horton MD Primary Care Provider Domi Altamirano BAR USEFUL OR BUSSER Unavailable [phone] Domi Altamirano NP Unavailable [phone] Unallocated, Noms Provider Primary Care Provi taylor Encounter Details Date Type Department Care Team (Late st Contact Info) Description 09/16/2024 Orders Only [facility] [address] [place] [address] Domi Altamirano, BAR USEFUL OR BUSSER [address] [facility] [place] [address] Social History Tobacco Use Types Packs/Day Years [...] declined 10/08/2023 How often do you attend anglican or advent serv ices? Never 10/08/2023 Do you belong to any clubs o r organizations such as anglican groups, unions, fraternal or athletic groups, or [...] medical care, and heating? Very hard 10/08/2023 [facility] of Occupat ional Health - Occupational Stress [...] Body, Pelvis, Abdomen Computed T omography Li TILLEYG CT PROCEDURES Final Result * CT HEAD/BRAIN W & WO CONTRAST (09/16/2024 10:32 AM EDT) Anatomical Region Laterality Modality Radiographic Carmen ging Domi Altamirano NP IMG XR PROCEDURES Final Result documented in this encounter Visit Diagnoses Not on filedocumented in this encounter Care Teams Skidway Worker Relationship Specialty Start Date End Date Hiren Horton MD PCP - General Family Medicine 07/26/23 10/13/24 Domi Altamirano NP [address] [place] [address] PCP - [facility] 08/24/24 Unallocated, Noms Mariaelena, [address] [place] [address] PCP - General Family Medicine 10/14/24 Domi Altamirano NP Nurse Practitioner Family Medicine 03/26/22 10/13/24 Domi Altamirano NP Nurse Practitioner Family Medicine 07/26/23 10/13/24 documented as of this encounter
--- OUTSIDE RECORDS SUMMARY | 2024-11-26 08:28 | XMS_ITS | Encounter Summary ---
Demographics Address [address] [facility] [address] [place] [address] Mobile Phone Home Phone Work Phone Email Address Preferred Language en Marital Status Faith Affiliation Unknown Race White Ethnic Group Not or Lati no Author Organization [facility] Address [address] [place] [address] Care Team Providers Care Script Girl Name Role Phone Domi Altamirano NP Unavailable [phone] Hiren Horton MD Primary Care Provider Domi Altamirano MARZIPAN MAKER Unavailable [phone] Domi Altamirano NP Unavailable [phone] Unallocated, Noms Provider Primary Care Provi taylor Encounter Details Date Type Department Care Team (Late st Contact Info) Description 09/17/2024 Abstract [facility] [address] [place] [address] Domi Altamirano, MARZIPAN MAKER [address] [place] [address] Social History Tobacco Use Types Packs/Day Years [...] declined 10/08/2023 How often do you attend shinto or gnosticism serv ices? Never 10/08/2023 Do you belong to any clubs o r organizations such as shinto groups, unions, fraternal or athletic groups, or [...] medical care, and heating? Very hard 10/08/2023 [facility] [place] of Occupat ional Health - Occupational Stress [...] any time in the past 12 m [facility], were you homeless or living [...] on filedocumented in this encounter Care Teams Script Girl Relationship Specialty Start Date End Date Hiren Horton MD PCP - General Family Medicine 07/26/23 10/13/24 Domi Altamirano NP [address] [place] [address] PCP - [place] [employer] 08/24/24 Unallocated, Noms Provider, [address] [place] [address] PCP - General Family Medicine 10/14/24 Domi Altamirano NP Nurse Practitioner Family Medicine 03/26/22 10/13/24 Domi Altamirano NP Nurse Practitioner Family Medicine 07/26/23 10/13/24 documented as of this encounter
--- NOTE | 2024-11-26 08:29 | CT_ITS ---
The [address] [address] Patient Name: JAIME BURTON MRN: [id number] date: 1975 Sex: F Assigned Patient Location: ED.MAIN Current Patient Location: ED.MAIN Accession/Order Number: [id number] Exam Date: 11/26/2024 09:35 Report Date: 11/26/2024 10:36 At the request of: ALEJANDRO HOROWITZ DO Procedure: CT abdomen pelvis wo/w con CLINICAL HISTORY: left flank pain since last night. Diffuse bone pain. H/o JADEN nodule CT CHEST WITH INTRAVENOUS CONTRAST: COMPARISON: 10/05/2024 TECHNIQUE: Spiral images were obtained through the chest following intravenous administration of 88 mL of Omnipaque 300. Images were reviewed using both narrow and wide window settings. This CT exam was performed using one or more following dose reduction techniques: Automated exposure control, adjustment of the mA and/or kV according to patient size, or use of iterative reconstruction technique. FINDINGS: The heart is top normal in size. There is no pericardial effusion. Coronary disease is noted. No aortic aneurysm or dissection is seen. Prevascular lymph nodes are still present though decreasing in size with short axis dimension up to 1 cm. There are still bilateral axillary lymph nodes, right greater than left with short axis dimension up to 15 mm, also minimally smaller. Left supraclavicular adenopathy is also again noted. There is a small hiatal hernia. The bony structures are intact. There is mild atelectasis and/or scarring. There is no developing consolidation, pleural effusion or pneumothorax. There is redemonstration of a left upper lobe noncalcified pulmonary nodule measuring approximately 13 mm in size. This is unchanged. CT/CT abdomen pelvis wo/w con IMPRESSION: CONTINUED MEDIASTINAL, LEFT SUPRACLAVICULAR AND AXILLARY ADENOPATHY, MINIMALLY IMPROVED. ATELECTASIS AND SCARRING. SIMILAR LEFT UPPER LOBE PULMONARY NODULE. SMALL HIATAL HERNIA. CT ABDOMEN AND PELVIS WITHOUT AND WITH INTRAVENOUS CONTRAST COMPARISON: 10/08/2024 Spiral images were obtained through the abdomen and pelvis before and after intravenous administration of 80 mL of Omnipaque 300. This CT exam was performed using one or more following dose reduction techniques: Automated exposure control, adjustment of the mA and/or kV according to patient size, or use of iterative reconstruction technique. Patient is status post cholecystectomy. There is mild intra and extrahepatic biliary dilatation. No common duct stones are identified. No intrahepatic masses are seen though there may be minimal focal fat near the fossa of the ligamentum teres. The spleen is top normal in size measuring up to 13 cm in craniocaudal dimension. The pancreas shows no acute findings. Adrenal limb thickening is again seen on the left. The right kidney is slightly ptotic. Precontrast, no renal, ureteral or bladder stones are seen. Following contrast administration, the renal nephrograms are symmetric. No hydronephrosis is noted. There are small renal cysts. There is atherosclerotic plaque involving the aorta and iliac arteries. There are continued enlarged abdominal lymph nodes, not significant changed. There is minor stranding within the mesentery and a trace amount free fluid. No distended small bowel loops are seen. There is moderate stool within the colon, greater on the right. There is some old contrast within the colon on the right. Subtle levoscoliotic curvature and minor degenerative change at the spine. There is stable L1 compression deformity. Images through the pelvis show nondistended small bowel. There is moderate distal colonic stool. There is no prominent diverticular disease. The appendix is reported to be surgically absent. There are Essure sterilization inserts. The urinary bladder shows no abnormalities for the degree of distention. There may be a trace amount of dependent free fluid. There is minor stranding within the mesentery and subcutaneous fat suggesting edema. Impression: TINY RENAL CYSTS. NO OBSTRUCTIVE UROPATHY OR STONE DISEASE. CONTINUED ABDOMINAL LYMPHADENOPATHY. MODERATE COLONIC STOOL. MILD SUBCUTANEOUS AND MESENTERIC EDEMA. TRACE AMOUNT FREE FLUID. NO OTHER ACUTE FINDINGS. Impression dictated by: Iraida Bach M.D. 11/26/2024 10:36 AM Dictation Location: [employer] Electronically authenticated by: [id number] Y Date: 11/26/2024 10:36
--- OUTSIDE RECORDS SUMMARY | 2024-11-26 08:29 | XMS_ITS | Encounter Summary ---
Author Organization [facility] Address [address] [place] [address] Care Team Providers Care Equal Opportunity Officer Name Role Phone Lizzette Malik CNP Primary Care Provider [phone] Domi Altamirano COPY ROOM TECHNICIAN Unavailable [phone] Source Comments In the event this information is protected by the Federal Confidentiality of Alcohol and Drug AbusePatient Records regulations: The Federal rules restrict any use of the information to criminally investigate or prosecute any alcohol or drug abuse patient.[facility] Reason for Visit * Reason Comments Radiology CT Encounter Details Date Type Department Care Team ([facility] st Contact Info) Description 06/20/2017 Radiology Radiology [address] [address] Lizzette Malik, COPY ROOM TECHNICIAN [address] [place] [address] Social History Tobacco Use Types [...] on filedocumented in this encounter Care Teams Equal Opportunity Officer Relationship Specialty Start Date End Date Lizzette Malik CNP PCP - General Family Medicine 12/04/14 Domi Altamirano CNP Referring Family Medicine 10/14/21 documented as of this encounter
--- OUTSIDE RECORDS SUMMARY | 2024-11-26 08:29 | XMS_ITS | Encounter Summary ---
Demographics Address [address] [facility] [address] [place] [address] Mobile Phone Home Phone Work Phone Email Address Preferred Language en Marital Status Druze Affiliation Unknown Race White Ethnic Group Not or Lati no Author Organization [facility] Address [address] [place] [address] Care Team Providers Care Hair Assistant Name Role Phone Domi Altamirano NP Unavailable [phone] Hiren Horton MD Primary Care Provider [phone] Domi Altamirano IGNITER CAPPER Unavailable [phone] Domi Altamirano NP Unavailable [phone] Unallocated, Noms Provider Primary Care Provi taylor Encounter Details Date Type Department Care Team (Late st Contact Info) Description 09/22/2024 Abstract [facility] [address] [place] [address] Domi Altamirano, IGNITER CAPPER [address] [place] [address] Social History Tobacco Use Types Packs/Day Years [...] declined 10/08/2023 How often do you attend druze or adventist serv ices? Never 10/08/2023 Do you belong to any clubs o r organizations such as druze groups, unions, fraternal or athletic groups, or [...] medical care, and heating? Very hard 10/08/2023 [facility] [place] of Occupat ional Health - Occupational Stress [...] time in the past 12 m [facility], were you homeless or living in [...] on filedocumented in this encounter Care Teams Hair Assistant Relationship Specialty Start Date End Date Hiren Horton MD PCP - General Family Medicine 07/26/23 10/13/24 Domi Altamirano NP [address] [place] [address] PCP - [place] [employer] 08/24/24 Unallocated, Noms Provider, [address] [place] [address] PCP - General Family Medicine 10/14/24 Domi Altamirano NP Nurse Practitioner Family Medicine 03/26/22 10/13/24 Domi Altamirano NP Nurse Practitioner Family Medicine 07/26/23 10/13/24 documented as of this encounter
--- OUTSIDE RECORDS SUMMARY | 2024-11-26 08:29 | XMS_ITS | Encounter Summary ---
Demographics Address [address] [facility] [address] [place] [address] Mobile Phone Home Phone Work Phone Email Address Preferred Language en Marital Status Baptism Affiliation Unknown Race White Ethnic Group Not or Lati no Author Organization [facility] Address [address] [place] [address] Care Team Providers Care Bioassayist Name Role Phone Domi Altamirano NP Unavailable [phone] Hiren Horton MD Primary Care Provider [phone] Domi Altamirano PESTICIDE USE MEDICAL COORDINATOR Unavailable [phone] Domi Altamirano NP Unavailable [phone] Unallocated, Noms Provider Primary Care Provi taylor Encounter Details Date Type Department Care Team (Late st Contact Info) Description 09/18/2024 Abstract [facility] [address] [place] [address] Domi Altamirano, PESTICIDE USE MEDICAL COORDINATOR [address] [place] [address] Social History Tobacco Use Types Packs/Day Years [...] How often do you attend protestant or orthodoxy serv ices? Never 10/08/2023 Do [...] medical care, and heating? Very hard 10/08/2023 [facility] [place] of Occupat ional Health - Occupational Stress [...] any time in the past 12 m [facility], were you homeless or living in a [...] on filedocumented in this encounter Care Teams Bioassayist Relationship Specialty Start Date End Date Hiren Horton MD PCP - General Family Medicine 07/26/23 10/13/24 Domi Altamirano NP [address] [place] [address] PCP - [place] [employer] 08/24/24 Unallocated, Noms Provider, [address] [place] [address] PCP - General Family Medicine 10/14/24 Domi Altamirano NP Nurse Practitioner Family Medicine 03/26/22 10/13/24 Domi Altamirano NP Nurse Practitioner Family Medicine 07/26/23 10/13/24 documented as of this encounter
--- OUTSIDE RECORDS SUMMARY | 2024-11-26 08:29 | XMS_ITS | Encounter Summary ---
Demographics Address [address] [address] Mobile Phone Home Phone Work Phone Email Address Preferred Language en Marital Status Baptist Affiliation Unknown Race White Ethnic Group Not or Lati no Author Organization [facility] Address [address] [place] [address] Care Team Providers Care Handle Rounder Operator Name Role Phone Domi Altamirano BOARD DESIGN ENGINEER Unavailable [phone] Hiren Horton MD Primary Care Provider [phone] Domi Altamirano NP Unavailable [phone] Domi Altamirano NP Unavailable [phone] Unallocated, Noms Provider Primary Care Provi taylor Encounter Details Date Type Department Care Team (Late st Contact Info) Description 09/22/2024 Orders Only [facility] [address] [facility] [place] [address] Nakul Swenson MD [address] [facility] [place] [address] Social History Tobacco Use Types [...] declined 10/08/2023 How often do you attend holiness or temple serv ices? Never 10/08/2023 Do you belong to any clubs o r organizations such as holiness groups, unions, fraternal or athletic groups, or [...] care, and heating? Very hard 10/08/2023 [facility] of Occupat ional Health - [...] any time in the past 12 m [facility], were you homeless or living [...] on filedocumented in this encounter Care Teams Handle Rounder Operator Relationship Specialty Start Date End Date Hiren Horton MD PCP - General Family Medicine 07/26/23 10/13/24 Domi Altamirano NP [address] [place] [address] PCP - [place] [employer] 08/24/24 Unallocated, Noms Mariaelena, [address] [place] [address] PCP - General Family Medicine 10/14/24 Domi Altamirano NP Nurse Practitioner Family Medicine 03/26/22 10/13/24 Domi Altamirano NP Nurse Practitioner Family Medicine 07/26/23 10/13/24 documented as of this encounter
--- OUTSIDE RECORDS SUMMARY | 2024-11-26 08:29 | XMS_ITS | Encounter Summary ---
Demographics Address [address] [facility] [address] [place] [address] Mobile Phone Home Phone Work Phone Email Address Preferred Language en Marital Status Buddhism Affiliation Unknown Race White Ethnic Group Not or Lati no Author Organization [facility] Address [address] [place] [address] Care Team Providers Care Form Tamper Name Role Phone Domi Altamirano NP Unavailable [phone] Hiren Horton MD Primary Care Provider Domi Altamirano OIL PUMP STATION OPERATOR CHIEF Unavailable [phone] Domi Altamirano NP Unavailable [phone] Unallocated, Noms Provider Primary Care Provi taylor Encounter Details Date Type Department Care Team (Late st Contact Info) Description 09/22/2024 Abstract [facility] [address] [place] [address] Domi Altamirano, OIL PUMP STATION OPERATOR CHIEF [address] [place] [address] Social History Tobacco Use Types Packs/Day Years [...] How often do you attend holiness or anglican serv ices? Never 10/08/2023 Do you belong [...] care, and heating? Very hard 10/08/2023 [facility] [place] of Occupat ional Health - Occupational Stress [...] any time in the past 12 m [facility], were you homeless or living in [...] on filedocumented in this encounter Care Teams Form Tamper Relationship Specialty Start Date End Date Hiren Horton MD PCP - General Family Medicine 07/26/23 10/13/24 Domi Altamirano NP [address] [place] [address] PCP - [place] [employer] 08/24/24 Unallocated, Noms Provider, [address] [place] [address] PCP - General Family Medicine 10/14/24 Domi Altamirano NP Nurse Practitioner Family Medicine 03/26/22 10/13/24 Domi lAtamirano NP Nurse Practitioner Family Medicine 07/26/23 10/13/24 documented as of this encounter
--- OUTSIDE RECORDS SUMMARY | 2024-11-26 08:29 | XMS_ITS | Clinical Summary ---
Author Organization [facility] Address [address] [place] [id number] Care Team Providers Care Grade Foreman Name Role Phone Sadie Maliksandor Martino MACHINE OPERATOR [employer] Primary Care Provider [phone] Domi Altamirano MACHINE OPERATOR [employer] Unavailable [phone] Allergies Active Allergy Reactions Criticality Noted Date [...] - 8.0 g/dL 06/19/2017 11:09 PM EDT [facility] Albumin 4.4 3.9 - 4.9 g/dL 06/19/2017 11:09 PM EDT [facility] Calcium 9.4 8.5 - 10.2 mg/dL 06/19/2017 11:09 PM EDT [facility] Bilirubin, Total <0.2(L) 0.2 - 1.3 mg/dL 06/19/2017 11:09 PM EDT [facility] Alkaline Phosphatase 64 32 - 117 U/L 06/19/2017 11:09 PM EDT [facility] AST 11(L) 13 - 35 U/L 06/19/2017 11:09 PM [facility] Glucose 100(H) 74 - 99 mg/dL 06/19/2017 11:09 PM [facility] Comment: The [place] Diabetes Association (ADA) provides guidance for cutoff [...] Standards of Medical Care in Diabetes 2016, [place] Diabetes Association. Diabetes Care. 2016.39(Suppl 1). BUN 11 7 - 21 mg/dL 06/19/2017 11:09 PM [facility] Creatinine 0.75 0.58 - 0.96 mg/dL 06/19/2017 11:09 PM [facility] Sodium 138 136 - 144 mmol/L 06/19/2017 11:09 PM [facility] Potassium 4.0 3.7 - 5.1 mmol/L 06/19/2017 11:09 PM [facility] Chloride 103 97 - 105 mmol/L 06/19/2017 11:09 PM [facility] CO2 24 22 - 30 mmol/L 06/19/2017 11:09 PM [facility] Anion Gap 11 9 - 18 mmol/L 06/19/2017 11:09 PM [facility] ALT 11 7 - 38 U/L 06/19/2017 11:09 PM [facility] eGFR- >60 06/19/2017 11:09 PM [facility] eGFR-All Other Races >60 . 06/19/2017 11:09 PM [facility] Comment: eGFR (Estimated GFR) Units [...] us Evan Ruiz MD LABORATORY Final Result [facility] [address] [place] [address] from Last 3 Months or Most Recently Relevant to Health Maintenance Insurance [employer] Care Teams Grade Foreman Relationship Specialty Start Date End Date Lizzette Malik MACHINE OPERATOR [employer] PCP - General Family Medicine 12/04/14 Domi Altamirano CNP Referring Family Medicine 10/14/21
--- OUTSIDE RECORDS SUMMARY | 2024-11-26 08:29 | XMS_ITS | Patient Health Record ---
Author Organization [facility] in [place] Address [address] [place] [address] Care Team Providers Care Supervising Chef Name Role Phone Mansoor Swenson Primary Care Provider Katerine Chance Unavailable [phone] Allergies Allergen (clinical drug ingredient) Drug/Non Drug Allergy documented on EMR Reaction Allergy Type Onset Date Status prednisone predniSONE Insides Feel Like On Fire Drug Allergy Active Results Component Value Reference Range Notes CBC AUTO DIFF Reviewed date:10/20/2024 01:00:43 PM Interpretation: Performing Lab: Notes/Report: [facility] , White Blood Count 15.4 4.0-11.0 10 3/uL Red Blood Count 3.63 4.20-5.40 10 6/uL Hemoglobin 9.8 12.0-16.0 g/dL Hematocrit 31.5 36.0-48.0 % Mean Corpuscular Volume 86.8 81.0-99.0 fL Mean Corpuscular Hemoglobin 27.0 26.7-34.0 pg Mean Corpuscular HGB Conc 31.1 29.9-35.2 g/dL Red Cell Distribution Width 17.7 11.0-15.0 % Platelet Count 1141 150-450 10 3/uL RESULTS CA LLED TO DR. SWENSON Mean Platelet Volume 8.1 9.5-13.5 fL Neutrophils Percent Auto 75.9 43.0-75.0 % Lymphocytes Percent Auto 13.0 20.5-60.0 % Monocytes Percent Auto 9.3 1.7-12.0 % Eosinophils Percent Auto 0.3 0.9-7.0 % Basophils Percent Auto 0.3 0.2-2.0 % Immature Granulocytes Pct Auto 1.2 0.0-0.5 % Neutrophils Absolute Auto 11.7 1.4-6.5 10 3/uL Lymphocytes Absolute Auto 2.0 1.2-3.8 10 3/uL Monocytes Absolute Auto 1.4 0.3-0.8 10 3/uL Eosinophils Absolute Auto 0.0 0.0-0.7 10 3/uL Basophils Absolute Auto 0.1 0.0-0.1 10 3/uL Immature Granulocytes Abs Auto 0.18 0.00-0.03 10 3/uL Performing Lab: see note ML - [facility] LB PROF 14(COMP METB) Reviewed date:10/20/2024 01:42:51 PM Interpretation: Performing Lab: Notes/Report: [facility] , Sodium 138 136-145 mmol/L Potassium 2.5 3.5-5.1 mmol/L RESULTS JIN D TO JUAN RUBALCAVA TRACER POWDER BLENDER at 1320 Chloride 94 98-107 mmol/L Carbon Dioxide 26.7 21.0-32.0 mmol/L Anion Gap 19.8 Glucose 92 74-106 mg/dL Blood Urea Nitrogen 16.0 7.0-18.0 mg/dL Creatinine 1.42 0.55-1.02 mg/dL Estimated GFR ( Fang 48 >=60 mL/min/1.73m 2 Estimated GFR (Non- Lizabeth 39 >=60 mL/min/1.73m 2 BUN Creatinine Ratio 11.3 Calcium 9.2 8.5-10.1 mg/dL Bilirubin Total 0.6 0.2-1.0 mg/dL Aspartate Amino Transferase 14 15-37 U/L Alanine Aminotransferase 11 14-59 U/L Alkaline Phosphatase 564 46-116 U/L Total Protein 7.9 6.4-8.2 g/dL Albumin Level 1.4 3.4-5.0 g/dL Globulin 6.5 Albumin Globulin Ratio 0.2 Performing Lab: see note ML - [facility] LB CBC AUTO DIFF Reviewed date:11/18/2024 08:03:28 PM Interpretation: Performing Lab: Notes/Report: [facility] , White Blood Count 17.0 4.0-11.0 10 [...] Performing Lab: see note ML - [facility] LB XR chest 2V Reviewed date:09/21/2024 01:12:51 PM Interpretation: Performing Lab: Notes/Report: Source Facility: [facility]-[address] [place] [address] [place] [address] XRay Report Signed Patient: RYLEE BURTON MR#: [id number] : 1975 Acct:[id number] Age/Sex: 49 / F ADM Date: 09/15/24 Loc: MS 202-[address]: Meenakshi Swenson M.D. Ordering Physician: Meenakshi Swenson M.D. Date of Service: 09/19/24 Procedure(s): XR chest 2V Accession Number(s): [id number] cc: Domi Altamirano SANDWICH MACHINE OPERATOR; Meenakshi Swenson M.D. [address] [address] Patient Name: RYLEE BURTON MRN: [id number] date: 1975 Sex: F Assigned Patient Location: [place] Current Patient Location: [place] Accession/Order Number: [id number] Exam Date: 09/19/2024 09:16 Report Date: 09/19/2024 09:17 At the request of: MEENAKSHI SWENSON MD Procedure: XR chest 2V PA AND [...] Bach M.D. 09/19/2024 9:17 AM Dictation Location: [place] [address] Electronically authenticated by: [id number] Y Date: 09/19/2024 09:17 Dictated By: Iraida Bach M.D. Signed By: 09/19/24919 DD/ 6 TD/TT: Water Truck Driver: [place] [address] XRay Report Signed Patient: JABIER BURTON MR#: [id number] : 1975 Acct:[id number] Age/Sex: 49 / F ADM Date: 09/15/24 Loc: MS 202-[address]: Irlanda Swenson M.D. Ordering Physician: Meenakshi Swenson M.D. Date of Service: 09/19/24 Procedure(s): XR chest 2V Accession Number(s): [id number] cc: Domi Altamirano NP ; Meenakshi Swenson M.D. [address] [address] Patient Name: RYLEE BURTON MRN: [id number] date: 1975 Sex: F Assigned Patient Loc ation: MS Current Patient Loca tion: Accession/Order Numb er: [id number] Exam Date: 09/19/2024 09:16 Report Date: 09/19/2024 09:17 At the request of: MEENAKSHI SWENSON MD Procedure: XR chest 2V PA AND [...] Bach M.D. 09/19/2024 9:17 AM Dictation Location: [place] [address] Electronically authenticated by: [id number] Y Date: 09/19/2024 09:17 Dictated By: Iraida Bach M.D. Signed By: 09/19/24919 DD/ 6 TD/TT: Water Truck Driver: Packed Red Blood Cells Reviewed date:09/21/2024 01:12:51 PM Interpretation: Performing Lab: Notes/Report: Packed Red Blood Cells [id number] OP RC TRANSFUSED 09/20/24 1558 [id number] OP RC TRANSFUSED 09/20/24 1239 Type and Screen Reviewed date:09/21/2024 01:12:51 PM Interpretation: Performing Lab: Notes/Report: [facility] , Blood Type O Positive Antibody Screen NEGATIVE CBC AUTO DIFF Reviewed date:09/21/2024 01:12:51 PM Interpretation: Performing Lab: Notes/Report: [facility] , White Blood Count 24.0 4.0-11.0 10 [...] 10 3/uL Performing Lab: see note - [facility] LB Blood Culture 1 Reviewed date:10/13/2024 07:21:11 PM Interpretation: Performing Lab: Notes/Report: RIGHT AC - [facility] , Blood Culture 1 See Below For Report Blood Culture 1 NG5D NO GROWTH AT 5 DAYS.^NO GROWTH AT 5 DAYS. Performing Lab: see note - [facility] LB Blood Culture 2 Reviewed date:10/13/2024 07:21:11 PM Interpretation: Performing Lab: Notes/Report: RIGHT HAND - PEDS [facility] , Blood Culture 2 See Below For Report Blood Culture 2 NG5D NO GROWTH AT 5 DAYS.^NO GROWTH AT 5 DAYS. Performing Lab: see note [facility] LB PROF 14(COMP METB) Reviewed date:11/02/2024 07:54:11 PM Interpretation: Performing Lab: Notes/Report: [facility] , Sodium 137 136-145 mmol/L Potassium 4.3 3.5-5.1 mmol/L Chloride 98 98-107 mmol/L Carbon Dioxide 24.5 21.0-32.0 mmol/L Anion Gap 18.8 Glucose 116 74-106 mg/dL Blood Urea Nitrogen 15.0 7.0-18.0 mg/dL Creatinine 0.87 0.55-1.02 mg/dL Estimated GFR ( Fang >60 >=60 mL/min/1.73m 2 Estimated GFR (Non- Lizabeth >60 >=60 mL/min/1.73m 2 BUN Creatinine Ratio 17.2 Calcium 10.6 8.5-10.1 mg/dL Bilirubin Total 0.8 0.2-1.0 mg/dL Aspartate Amino Transferase 42 15-37 U/L Alanine Aminotransferase 42 14-59 U/L Alkaline Phosphatase 855 46-116 U/L Total Protein 8.9 6.4-8.2 g/dL Albumin Level 1.6 3.4-5.0 g/dL Globulin 7.3 Albumin Globulin Ratio 0.2 Performing Lab: see note ML - [facility] LB Packed Red Blood Cells Reviewed date:11/05/2024 06:22:35 PM Interpretation: Performing Lab: Notes/Report: Packed Red Blood Cells [id number] OP RC TRANSFUSED 11/05/24 1216 [id number] OP RC TRANSFUSED 11/05/24 0920 Type and Screen Reviewed date:11/05/2024 06:22:35 PM Interpretation: Performing Lab: Notes/Report: [facility] , Blood Type O Positive Antibody Screen NEGATIVE PROF 14(COMP METB) Reviewed date:11/13/2024 04:23:43 PM Interpretation: Performing Lab: Notes/Report: [facility] , Sodium 135 136-145 mmol/L Potassium 3.7 3.5-5.1 mmol/L Chloride 101 98-107 mmol/L Carbon Dioxide 25.0 21.0-32.0 mmol/L Anion Gap 12.7 Glucose 129 74-106 mg/dL Blood Urea Nitrogen 15.0 7.0-18.0 mg/dL Creatinine 0.67 0.55-1.02 mg/dL Estimated GFR ( Fang >60 >=60 mL/min/1.73m 2 Estimated GFR (Non- Lizabeth >60 >=60 mL/min/1.73m 2 BUN Creatinine Ratio 22.4 Calcium 9.9 8.5-10.1 mg/dL Bilirubin Total 0.7 0.2-1.0 mg/dL Aspartate Amino Transferase 37 15-37 U/L Alanine Aminotransferase 31 14-59 U/L Alkaline Phosphatase 895 46-116 U/L Total Protein 8.4 6.4-8.2 g/dL Albumin Level 1.4 3.4-5.0 g/dL Globulin 7.0 Albumin Globulin Ratio 0.2 Performing Lab: see note ML - [facility] LB CBC AUTO DIFF Reviewed date:11/20/2024 05:06:15 PM Interpretation: Performing Lab: Notes/Report: [facility] , White Blood Count 22.7 4.0-11.0 10 3/uL Red Blood Count 2.17 4.20-5.40 10 6/uL MICRO 1+ Hemoglobin 6.0 12.0-16.0 g/dL RESULTS JIN D TO OLIVIA MILLS RN Hematocrit 21.1 36.0-48.0 % RESULTS CALLED TO OLIVIA MILLS RN Mean Corpuscular Volume 97.2 81.0-99.0 fL Mean Corpuscular Hemoglobin 27.6 26.7-34.0 pg Mean Corpuscular HGB Conc 28.4 29.9-35.2 g/dL Red Cell Distribution Width 21.3 11.0-15.0 % Platelet Count 1098 150-450 10 3/uL RESULTS CA LLED TO OLIVIA MILLS RN Mean Platelet Volume 8.6 9.5-13.5 fL Performing Lab: see note ML - [facility] LB PROF 14(COMP METB) Reviewed date:11/20/2024 05:06:15 PM Interpretation: Performing Lab: Notes/Report: [facility] , Sodium 133 136-145 mmol/L Potassium 3.9 3.5-5.1 mmol/L Chloride 99 98-107 mmol/L Carbon Dioxide 22.7 21.0-32.0 mmol/L Anion Gap 15.2 Glucose 117 74-106 mg/dL Blood Urea Nitrogen 16.0 7.0-18.0 mg/dL Creatinine 0.80 0.55-1.02 mg/dL Estimated GFR ( Fang >60 >=60 mL/min/1.73m 2 Estimated GFR (Non- Lizabeth >60 >=60 mL/min/1.73m 2 BUN Creatinine Ratio 20.0 Calcium 9.9 8.5-10.1 mg/dL Bilirubin Total 0.8 0.2-1.0 mg/dL Aspartate Amino Transferase 14 15-37 U/L Alanine Aminotransferase 30 14-59 U/L Alkaline Phosphatase 573 46-116 U/L Total Protein 8.1 6.4-8.2 g/dL Albumin Level 1.2 3.4-5.0 g/dL Globulin 6.9 Albumin Globulin Ratio 0.2 Performing Lab: see note ML - [facility] LB Manual Differential Reviewed date:11/20/2024 05:06:15 PM Interpretation: Performing Lab: Notes/Report: [facility] , Segmented Neutrophils % Manual 79.0 43.0-75.0 Lymphocytes Percent Manual 17.0 20.5-60.0 % Monocytes Percent Manual 4.0 1.7-12.0 % Eosinophils Percent Manual 0.0 0.9-7.0 % Basophils Percent Manual 0.0 0.2-2.0 % Segmented Neut Absolute Manual 17.93 1.4-6.5 10 3/uL Lymphocytes Absolute Manual 3.85 1.20-3.80 10 3/uL Monocytes Absolute Manual 0.90 0.30-0.80 10 3/uL Eosinophils Absolute Manual 0.00 0.00-0.70 10 3/uL Basophils Abs Manual 0.00 0.00-0.10 1 0 3/uL Performing Lab: see note ML - [facility] LB Packed Red Blood Cells Reviewed date:11/24/2024 02:07:02 PM Interpretation: Performing Lab: Notes/Report: Packed Red Blood Cells [id number] ON RC TRANSFUSED 11/21/24 1228 [id number] ON RC TRANSFUSED 11/21/24 1037 Type and Screen Reviewed date:11/24/2024 02:07:02 PM Interpretation: Performing Lab: Notes/Report: [facility] , Blood Type O Positive Antibody Screen NEGATIVE CBC AUTO DIFF Reviewed date:11/05/2024 12:48:21 PM Interpretation: Performing Lab: Notes/Report: [facility] , White Blood Count 11.9 4.0-11.0 10 3/uL Red Blood Count 2.51 4.20-5.40 10 6/uL Hemoglobin 7.0 12.0-16.0 g/dL Hematocrit 23.4 36.0-48.0 % RESULTS CALLED TO Mean Corpuscular Volume 93.2 81.0-99.0 fL Mean Corpuscular Hemoglobin 27.9 26.7-34.0 pg Mean Corpuscular HGB Conc 29.9 29.9-35.2 g/dL Red Cell Distribution Width 17.5 11.0-15.0 % Platelet Count 759 150-450 10 3/uL Mean Platelet Volume 9.6 9.5-13.5 fL Neutrophils Percent Auto 66.2 43.0-75.0 % Lymphocytes Percent Auto 23.4 20.5-60.0 % Monocytes Percent Auto 8.6 1.7-12.0 % Eosinophils Percent Auto 0.3 0.9-7.0 % Basophils Percent Auto 0.7 0.2-2.0 % Immature Granulocytes Pct Auto 0.8 0.0-0.5 % Neutrophils Absolute Auto 7.9 1.4-6.5 10 3/uL Lymphocytes Absolute Auto 2.8 1.2-3.8 10 3/uL Monocytes Absolute Auto 1.0 0.3-0.8 10 3/uL Eosinophils Absolute Auto 0.0 0.0-0.7 10 3/uL Basophils Absolute Auto 0.1 0.0-0.1 10 3/uL Immature Granulocytes Abs Auto 0.10 0.00-0.03 10 3/uL Performing Lab: see note ML - [facility] LB CBC AUTO DIFF Reviewed date:11/02/2024 07:54:11 PM Interpretation: Performing Lab: Notes/Report: [facility] , White Blood Count 15.5 4.0-11.0 10 3/uL Red Blood Count 2.61 4.20-5.40 10 6/uL Hemoglobin 7.2 12.0-16.0 g/dL Hematocrit 24.7 36.0-48.0 % Mean Corpuscular Volume 94.6 81.0-99.0 fL Mean Corpuscular Hemoglobin 27.6 26.7-34.0 pg Mean Corpuscular HGB Conc 29.1 29.9-35.2 g/dL Red Cell Distribution Width 17.7 11.0-15.0 % Platelet Count 710 150-450 10 3/uL Mean Platelet Volume 9.2 9.5-13.5 fL Neutrophils Percent Auto 63.8 43.0-75.0 % Lymphocytes Percent Auto 25.7 20.5-60.0 % Monocytes Percent Auto 8.6 1.7-12.0 % Eosinophils Percent Auto 0.4 0.9-7.0 % Basophils Percent Auto 0.4 0.2-2.0 % Immature Granulocytes Pct Auto 1.1 0.0-0.5 % Neutrophils Absolute Auto 9.9 1.4-6.5 10 3/uL Lymphocytes Absolute Auto 4.0 1.2-3.8 10 3/uL Monocytes Absolute Auto 1.3 0.3-0.8 10 3/uL Eosinophils Absolute Auto 0.1 0.0-0.7 10 3/uL Basophils Absolute Auto 0.1 0.0-0.1 10 3/uL Immature Granulocytes Abs Auto 0.17 0.00-0.03 10 3/uL Performing Lab: see note - [facility] LB Manual Differential Reviewed date:10/27/2024 01:04:56 PM Interpretation: Performing Lab: Notes/Report: [facility] , Segmented Neutrophils % Manual 77.0 43.0-75.0 Lymphocytes Percent Manual 13.0 20.5-60.0 % Monocytes Percent Manual 9.0 1.7-12.0 % Eosinophils Percent Manual 1.0 0.9-7.0 % Basophils Percent Manual 0.0 0.2-2.0 % Segmented Neut Absolute Manual 13.32 1.4-6.5 10 3/uL Lymphocytes Absolute Manual 2.24 1.20-3.80 10 3/uL Monocytes Absolute Manual 1.55 0.30-0.80 10 3/uL Eosinophils Absolute Manual 0.17 0.00-0.70 10 3/uL Basophils Abs Manual 0.00 0.00-0.10 1 0 3/uL Performing Lab: see note - [facility] LB PROF 14(COMP METB) Reviewed date:10/27/2024 01:04:56 PM Interpretation: Performing Lab: Notes/Report: [facility] , Sodium 137 136-145 mmol/L Potassium 3.4 3.5-5.1 mmol/L Chloride 97 98-107 mmol/L Carbon Dioxide 26.4 21.0-32.0 mmol/L Anion Gap 17.0 Glucose 111 74-106 mg/dL Blood Urea Nitrogen 13.0 7.0-18.0 mg/dL Creatinine 0.85 0.55-1.02 mg/dL Estimated GFR ( Fang >60 >=60 mL/min/1.73m 2 Estimated GFR (Non- Lizabeth >60 >=60 mL/min/1.73m 2 BUN Creatinine Ratio 15.3 Calcium 10.0 8.5-10.1 mg/dL Bilirubin Total 0.7 0.2-1.0 mg/dL Aspartate Amino Transferase 67 15-37 U/L Alanine Aminotransferase 39 14-59 U/L Alkaline Phosphatase 870 46-116 U/L Total Protein 8.9 6.4-8.2 g/dL Albumin Level 1.6 3.4-5.0 g/dL Globulin 7.3 Albumin Globulin Ratio 0.2 Performing Lab: see note - [facility] LB CBC AUTO DIFF Reviewed date:10/27/2024 01:04:56 PM Interpretation: Performing Lab: Notes/Report: [facility] , White Blood Count 17.3 4.0-11.0 10 3/uL Red Blood Count 3.17 4.20-5.40 10 6/uL Hemoglobin 8.7 12.0-16.0 g/dL Hematocrit 29.2 36.0-48.0 % Mean Corpuscular Volume 92.1 81.0-99.0 fL Mean Corpuscular Hemoglobin 27.4 26.7-34.0 pg Mean Corpuscular HGB Conc 29.8 29.9-35.2 g/dL Red Cell Distribution Width 17.8 11.0-15.0 % Platelet Count 718 150-450 10 3/uL Mean Platelet Volume 8.4 9.5-13.5 fL Performing Lab: see note - [facility] LB CT abdomen pelvis w con Reviewed date:10/08/2024 05:20:20 PM Interpretation: Performing Lab: Notes/Report: Source Facility: [facility]-[address] [place] [address] [place] [address] CT Scan Report Signed Patient: RYLEE BURTON MR#: [id number] : 1975 Acct:[id number] Age/Sex: 49 / F ADM Date: 10/07/24 Loc: MS 202-[address]: Cynthia Hernandez M.D. Ordering Physician: Cynthia Hernandez M.D. Date of Service: 10/08/24 Procedure(s): CT abdomen pelvis w con Accession Number(s): [id number] cc: Meenakshi Swenson M.D. [place] [id number] Patient Name: RYLEE BURTON MRN: [id number] date: 1975 Sex: F Assigned Patient Location: MS Current Patient Location: [place] Accession/Order Number: [id number] Exam Date: 10/08/2024 08:22 Report Date: 10/08/2024 08:38 At the request of: CYNTHIA HERNANDEZ MD Procedure: CT abdomen pelvis w con CT ABDOMEN AND PELVIS WITH CONTRAST CLINICAL DATA: Sepsis COMPARISON: 09/21/2024 Spiral images were obtained through the abdomen and pelvis following oral and 100 mL of hand injected Omnipaque 300. This CT exam was performed using one or more following dose reduction techniques: Automated exposure control, adjustment of the mA and/or kV according to patient size, or use of iterative reconstruction technique. Limited cuts through the lung bases show minor atelectasis or scarring. There is a tiny hiatal hernia. The gallbladder surgically absent. There is mild common duct prominence, without evidence of choledocholithiasis. No intrahepatic masses are noted. The spleen and pancreas show no acute findings. There is mild adrenal limb thickening. The renal nephrograms are symmetric. No hydronephrosis is present. There are tiny renal cysts. There is also an ill-defined hypodensity at the superior pole on the left measuring almost 15 mm in size. This appears different than the prior though there is also difference in phase of nephrogram due to hand bolus on the current study. No hydronephrosis is identified. There is mild atherosclerotic plaque involving the aorta and iliac arteries. Multiple prominent retroperitoneal lymph nodes are again seen. There is no ascites. There is no dilated small bowel. There is air and stool within the colon, greater on the right. There is slight levoscoliotic curvature and mild degenerative changes at the spine. Mild wedge deformity at L1 was present on the comparison. Images through the pelvis show no dilated small bowel. The appendix is surgically absent. There is stool at the cecum. Minimal stool is present at the distal colon and moderate air at the rectum. No diverticular disease is noted. Essure sterilization inserts are visualized. There is still a 2 cm left ovarian cyst. The urinary bladder shows no obvious abnormalities for the degree of distention. There is a trace amount of dependent free pelvic fluid. CT/CT abdomen pelvis w con IMPRESSION: TINY HIATAL HERNIA. NO BOWEL OR URINARY TRACT OBSTRUCTION. RENAL CYSTS. INDETERMINANT LEFT RENAL HYPODENSITY, DIFFERENT THAN THE COMPARISON. INFECTION IS NOT EXCLUDED. CLINICAL CORRELATION IS RECOMMENDED. CONTINUED ABDOMINAL LYMPHADENOPATHY. SMALL LEFT OVARIAN CYST. TRACE AMOUNT OF FREE PELVIC FLUID. THIS MAY BE PHYSIOLOGIC. Impression dictated by: Iraida Bach M.D. 10/08/2024 8:38 AM Dictation Location: [place] [address] Electronically authenticated by: [id number] Y Date: 10/08/2024 08:38 Dictated By: Iraida Bach M.D. Signed By: 10/08/24 0841 DD/ TD/TT: Water Truck Driver: [place] [address] CT Scan Report Signed Patient: JABIER BURTON MR#: [id number] : 1975 Acct:[id number] Age/Sex: 49 / F ADM Date: 10/07/24 Loc: MS - Attending Dr: Cynthia Hernandez M.D. Ordering Physician: Cynthia Hernandez M.D. Date of Service: 10/08/24 Procedure(s): CT abd omen pelvis w con Accession Number(s): [id number] cc: Meenakshi Swenson M.D. [address] [address] Patient Name: RYLEE BURTON MRN: [id number] date: 1975 Sex: F Assigned Patient Loc ation: MS Current Patient Loca tion: MS Accession/Order Numb er: [id number] Exam Date: 10/08/2024 08:22 Report Date: 10/08/2024 08:38 At the request of: CYNTHIA HERNANDEZ MD Procedure: CT abdome n pelvis w con CT ABDOMEN AND PELVI S WITH CONTRAST CLINICAL DATA: Sepsis COMPARISON: 09/21/2024 Spiral images were obtained through the abdomen and pelvis following oral and 100 mL of hand injec corona Omnipaque 300. This CT exam was performed using one or more following do se reduction techniques: Automated exposure control, adjustment of the mA and/or kV according to patient size, or use of iterative reconstruction technique. Limited cuts through the lung bases show minor atelectasis or scarring. There is a tiny hiatal hernia. The gallbladder surg ically absent. There is mild common duct prominence, without evidence of choledocholithiasis. No intrahepatic masses are noted. The spleen and pancr eas show no acute findings. There is mild adrenal limb thickening. The matthew l nephrograms are symmetric. No hydronephrosis is present. There are t iny renal cysts. There is also an ill-defined hypodensity at the superior pole on the left measuring almost 15 mm in size. This appears differe nt than the prior though there is also difference in phase of nephrogram due to hand bolus on the current study. No hydronephrosis is identified. There is mild atherosclerotic plaque involving the aorta and iliac arteries. Multiple prominent retroperitoneal lymph nodes are again seen. There is no ascites. There is no dilated small bowel. There is air and stool within the colon, greater on th e right. There is slight levoscoliotic curvature and mild degenerative changes at the spine. Mild wedge deformity at L1 was present on the comparison. Images through the p brionna show no dilated small bowel. The appendix is surgically absent. T here is stool at the cecum. Minimal stool is present at the distal colon and moderate air at the rectum. No diverticular disease is noted. Essure sterilization inserts are visualized. There is still a 2 cm left ovarian cyst. T he urinary bladder shows no obvious abnormalities for the degree of distention . There is a trace amount of dependent free pelvic fluid. C T/CT abdomen pelvis w con IMPRESSION: TINY HIATAL HERNIA. NO BOWEL OR URINARY TRACT OBSTRUCTION. RENAL CYSTS. INDETERMINANT LEFT R ENAL HYPODENSITY, DIFFERENT THAN THE COMPARISON. INFECTION IS NOT EXC LUDED. CLINICAL CORRELATION IS RECOMMENDED. CONTINUED ABDOMINAL LYMPHADENOPATHY. SMALL LEFT OVARIAN CYST. TRACE AMOUNT OF FREE PELVIC FLUID. THIS MAY BE PHYSIOLOGIC. Impression dictated by: Iraida Bach M.D. 10/08/2024 8:38 AM Dictation Location: [place] [address] Electronically authenticated by: [id number] Y Date: 10/08/2024 08:38 Dictated By: Iraida Bach M.D. Signed By: 10/08/2441 DD/ 7 TD/TT: Water Truck Driver: SARS-CoV-2 Ag* Reviewed date:10/08/2024 05:20:20 PM Interpretation: Performing Lab: Notes/Report: [facility] , SARS-CoV-2 Ag NEGATIVE NEGATIVE This test has not been FDA cleared or approved, but has been authorized by the FDA under an Emergency Use Authorization (EUA) for use by authorized laboratories certified under CLIA that meet the requirements to perform moderate or high complexity testing. This test has been authorized only for the detection of proteins from SARS-CoV-2, not for any other viruses or pathogens. The emergency use of this test is authorized for the duration of the declaration that circumstances exist justifying the authorization of emergency use of in vitro diagnostic tests for detection and/or diagnosis of Covid-19 under section 564(b)(1) of the Act, 21 U.S.C. 360bbb-3(b)(1), unless the declaration is terminated or authorization is revoked sooner. Performing Lab: see note ML - [facility] LB Acute Hepatitis Reviewed date:10/09/2024 05:21:52 PM Interpretation: Performing Lab: Notes/Report: [facility] , Hep A Ab, IgM Negative Negative A negative anti-HAV IgM result suggests no recent or current HAV infection. HBsAg Screen Negative Negative Hep B Core Ab, IgM Negative Negative HCV Ab Non Reactive Non Reactive Interpretation: Comment . Not infected with HCV unless early or acute infection is suspected (which may be delayed in an immunocompromised individual), or other evidence exists to indicate HCV infection. Performed at: [facility] [id number] Dietary Director: Abel Finnegan PhD, Phone: [phone] Performing Lab: see note - [facility] LB HIV Ab/p24 Ag with Reflex Reviewed date:10/09/2024 05:21:52 PM Interpretation: Performing Lab: Notes/Report: [facility] , HIV Ab/p24 Ag Screen Non Reactive Non Reactive HIV-1/HIV-2 antibodies and HIV-1 p24 antigen were NOT detected. There is no laboratory evidence of HIV infection. HIV Negative Performed at: [facility] [address] [id number] Dietary Director: Abel Finnegan PhD, Phone: [phone] Performing Lab: see note LC - [facility] LB Prothrombin Time INR Reviewed date:10/08/2024 05:20:19 PM Interpretation: Performing Lab: Notes/Report: [facility] , Prothrombin Time 13.5 9.0-11.6 sec INR 1.31 DESIRED INR: 2.0-3.0 CONDITIONS NOT LISTED BELOW 2.5-3.5 FOR PROSTHETIC HEART VALVE REPLACEMENT 2.5-3.5 RECURRENT THROMBOSIS Performing Lab: see note ML - [facility] LB PTT Reviewed date:10/08/2024 05:20:19 PM Interpretation: Performing Lab: Notes/Report: [facility] , Partial Thromboplastin Time 33.7 22.3-36.2 sec Performing Lab: see note ML - [facility] LB PROF 14(COMP METB) Reviewed date:10/08/2024 05:20:19 PM Interpretation: Performing Lab: Notes/Report: [facility] , Sodium 140 136-145 mmol/L Potassium 3.5 3.5-5.1 mmol/L Chloride 101 98-107 mmol/L Carbon Dioxide 23.9 21.0-32.0 mmol/L Anion Gap 18.6 Glucose 88 74-106 mg/dL Blood Urea Nitrogen 11.0 7.0-18.0 mg/dL Creatinine 0.40 0.55-1.02 mg/dL Estimated GFR ( Fang >60 >=60 mL/min/1.73m 2 Estimated GFR (Non- Lizabeth >60 >=60 mL/min/1.73m 2 BUN Creatinine Ratio 27.5 Calcium 9.1 8.5-10.1 mg/dL Bilirubin Total 0.7 0.2-1.0 mg/dL Aspartate Amino Transferase 34 15-37 U/L Alanine Aminotransferase 36 14-59 U/L Alkaline Phosphatase 585 46-116 U/L Total Protein 7.2 6.4-8.2 g/dL Albumin Level 1.3 3.4-5.0 g/dL Globulin 5.9 Albumin Globulin Ratio 0.2 Performing Lab: see note ML - [facility] LB PHOSPHORUS Reviewed date:10/08/2024 05:20:19 PM Interpretation: Performing Lab: Notes/Report: [facility] , Phosphorus 3.9 2.6-4.7 mg/dL Performing Lab: see note ML - [facility] LB MAGNESIUM Reviewed date:10/08/2024 05:20:19 PM Interpretation: Performing Lab: Notes/Report: [facility] , Magnesium 2.0 1.8-2.4 mg/dL Performing Lab: see note ML - [facility] LB LACTATE or LACTIC ACID Reviewed date:10/08/2024 05:20:19 PM Interpretation: Performing Lab: Notes/Report: [facility] , Lactate/Lactic Acid 0.5 0.4-2.0 mmol/L Performing Lab: see note ML - [facility] LB INFLUENZA A AND B AG Reviewed date:10/08/2024 05:20:19 PM Interpretation: Performing Lab: Notes/Report: [facility] , Influenza Virus A Antigen Negative Negative for Flu A protein antigen. Infection due to Flu A cannot be ruled out. Flu A antigen in the sample may be below the detection limit of the test. Influenza Virus B Antigen Negative Negative for Flu B protein antigen. Infection due to Flu B cannot be ruled out. Flu B antigen in the sample may be below the detection limit of the test. Performing Lab: see note ML - [facility] LB CPK Reviewed date:10/08/2024 05:20:19 PM Interpretation: Performing Lab: Notes/Report: [facility] , Creatine Kinase 10 26-192 U/L Performing Lab: see note ML - [facility] LB CBC AUTO DIFF Reviewed date:10/08/2024 05:20:19 PM Interpretation: Performing Lab: Notes/Report: [facility] , White Blood Count 22.2 4.0-11.0 10 3/uL Red Blood Count 2.75 4.20-5.40 10 6/uL Hemoglobin 7.1 12.0-16.0 g/dL Hematocrit 23.3 36.0-48.0 % RESULTS CALLED TO JOSE ANGEL LAZO RN @BY Lora Davila at 0604 Mean Corpuscular Volume 84.7 81.0-99.0 fL Mean Corpuscular Hemoglobin 25.8 26.7-34.0 pg Mean Corpuscular HGB Conc 30.5 29.9-35.2 g/dL Red Cell Distribution Width 21.0 11.0-15.0 % Platelet Count 870 150-450 10 3/uL Mean Platelet Volume 8.3 9.5-13.5 fL Neutrophils Percent Auto 75.2 43.0-75.0 % Lymphocytes Percent Auto 9.6 20.5-60.0 % Monocytes Percent Auto 12.7 1.7-12.0 % Eosinophils Percent Auto 0.1 0.9-7.0 % Basophils Percent Auto 0.1 0.2-2.0 % Immature Granulocytes Pct Auto 2.3 0.0-0.5 % Neutrophils Absolute Auto 16.7 1.4-6.5 10 3/uL Lymphocytes Absolute Auto 2.1 1.2-3.8 10 3/uL Monocytes Absolute Auto 2.8 0.3-0.8 10 3/uL Eosinophils Absolute Auto 0.0 0.0-0.7 10 3/uL Basophils Absolute Auto 0.0 0.0-0.1 10 3/uL Immature Granulocytes Abs Auto 0.50 0.00-0.03 10 3/uL Performing Lab: see note ML - [facility] LB ECG 12 lead Reviewed date:10/11/2024 03:08:40 PM Interpretation: Performing Lab: Notes/Report: Source Facility: [facility]-[address] [place] [address] [place] [address] Electrocardiograph Report Signed Patient: RYLEE BURTON MR#: [id number] : 1975 Acct:[id number] Age/Sex: 49 / F ADM Date: 10/07/24 Loc: MS 202-[address]: Cynthia Hernandez M.D. Ordering Physician: Kobe Jonas M.D. 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 Signed By: 10/10/24 0946 DD/ 51 TD/TT: Water Truck Driver: [place] [address] Electrocardiograph Report Signed Patient: JABIER BURTON MR#: [id number] : 1975 Acct:[id number] Age/Sex: 49 / F ADM Date: 10/07/24 Loc: MS 202- Attending Dr: Cynthia Hernandez M.D. Ordering Physician: Kobe Jonas M.D. 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 Signed By: 10/10/24 0946 DD/ TD/TT: Water Truck Driver: CT angio chest Reviewed date:10/07/2024 09:58:47 PM Interpretation: Performing Lab: Notes/Report: Source Facility: [place] [address] CT Scan Report Signed Patient: RYLEE BURTON MR#: [id number] : 1975 Acct:[id number] Age/Sex: 49 / F ADM Date: 10/07/24 Loc: ER Attending Dr: Ordering Physician: Kobe Jonas M.D. Date of Service: 10/07/24 Procedure(s): CT angio chest Accession Number(s): [id number] cc: Meenakshi Swenson M.D. [place] [address] Patient Name: RYLEE BURTON MRN: [id number] date: 1975 Sex: F Assigned Patient Location: ER Current Patient Location: ER Accession/Order Number: [id number] Exam Date: 10/07/2024 20:53 Report Date: 10/07/2024 21:13 At the request of: KOBE JONAS MD Procedure: CT angio chest CT angio chest 10/07/2024 8:36 PM SIGN AND SYMPTOMS: Tachycardia, elevated d-dimer CONTRAST: 100 mL of intravenous Omnipaque 350 TECHNIQUE: Multidetector CT axial slices of the chest were obtained with IV contrast. Multiplanar reformats were performed and viewed on a separate workstation and reviewed to further define anatomy and possible pathology. CT was performed with one or more of the following dose reduction techniques: Automated exposure control, adjustment of the mA and/or kV according to patient size, or use of iterative reconstruction technique. COMPARISON: 09/16/2024. FINDINGS: Lower neck: Left supraclavicular lymphadenopathy is redemonstrated with the largest lymph node measuring 1.3 cm in short axis. Vessels: No evidence of pulmonary embolism. Mediastinum and Fabi: Mediastinal adenopathy is noted with the largest measuring 1.2 cm in short axis in the aortopulmonary window. Heart: Normal size. No pericardial effusion. Airways: Within normal limits Lungs: There is a 1.3 cm soft tissue attenuating nodule within the left upper lobe laterally similar to the prior exam. Pleura: Within normal limits. Chest Wall: Axillary lymphadenopathy is noted with the largest measuring 1.5 cm in short axis on the right and 9 mm in short axis on the left. Upper Abdomen: Retroperitoneal lymphadenopathy is partially visualized. Bones: There is a remote compression deformity at L1. CT/CT angio chest IMPRESSION: No evidence of pulmonary embolism. Similar axillary, supraclavicular, mediastinal, and retroperitoneal lymphadenopathy. There is a similar 1.3 cm soft tissue attenuating nodule in the left upper lobe laterally. These findings may be metastatic in nature or secondary to a lymphoproliferative process. Impression dictated by: Sevne Wheatley M.D. 10/07/2024 9:13 PM Dictation Location: [place] [address] Electronically authenticated by: [id number] Y Date: 10/07/2024 21:13 Dictated By: Seven Wheatley M.D. Signed By: 10/07/242115 DD/ 12 TD/TT: Water Truck Driver: [place] [address] CT Scan Report Signed Patient: JABIER BURTON MR#: [id number] : 1975 Acct:[id number] Age/Sex: 49 / F ADM Date: 10/07/24 Loc: ER Attending Dr: Ordering Physician: Kobe Jonas M.D. Date of Service: 10/07/24 Procedure(s): CT ang io chest Accession Number(s): [id number] cc: Meenakshi Swenson M.D. [address] [address] Patient Name: RYLEE BURTON MRN: [id number] date: 1975 Sex: F Assigned Patient Loc ation: ER Current Patient Loca tion: ER Accession/Order Numb er: [id number] Exam Date: 10/07/2024 20:53 Report Date: 10/07/2024 21:13 At the request of: KOBE JONAS MD Procedure: CT angio chest CT angio chest 2024 8:36 PM SIGN AND SYMPTOMS: Tachycardia, elevated d-dimer CONTRAST: 100 mL of intravenous Omnipaque 350 TECHNIQUE: Multidete ctor CT axial slices of the chest were obtained with IV contrast. Multiplana r reformats were performed and viewed on a separate workstation and revi ewed to further define anatomy and possible pathology. CT was performed with o ne or more of the following dose reduction techniques: Automated exposure control, adjustment of the mA and/or kV according to patient size, or use of iterative reconstruction technique. COMPARISON: 09/16/2024. FINDINGS: Lower neck: Left supraclavicular lymphadenopathy is redemonstrated with the largest lymph node measuring 1.3 cm in short axis. Vessels: No evidence of pulmonary embolism. Mediastinum and Fabi : Mediastinal adenopathy is noted with the largest measuring 1.2 cm in short axis in the aortopulmonary window. Heart: Normal size. No pericardial effusion. Airways: Within norm al limits Lungs: There is a 1. 3 cm soft tissue attenuating nodule within the left upper lobe laterally simil ar to the prior exam. Pleura: Within charlene l limits. Chest Wall: Axillary lymphadenopathy is noted with the largest measuring 1.5 cm in short axis on the right and 9 mm in short axis on the left. Upper Abdomen: Retroperitoneal lymphadenopathy is partially visualized. Bones: There is a re mote compression deformity at L1. C T/CT angio chest IMPRESSION: No evidence of pulmo nary embolism. Similar axillary, supraclavicular, mediastinal, and retroperitoneal lymphadenopathy. There is a similar 1 .3 cm soft tissue attenuating nodule in the left upper lobe laterally. These findings may b e metastatic in nature or secondary to a lymphoproliferative process. Impression dictated by: Seven Wheatley M.D. 10/07/2024 9:13 PM Dictation Location: [place] [address] Electronically authenticated by: [id number] Y Date: 10/07/2024 21:13 Dictated By: Seven Wheatley M.D. Signed By: 10/07/242115 DD/ 12 TD/TT: Water Truck Driver: CT head/brain wo con Reviewed date:10/07/2024 08:47:32 PM Interpretation: Performing Lab: Notes/Report: Source Facility: [place] [address] CT Scan Report Signed Patient: RYLEE BURTON MR#: [id number] : 1975 Acct:[id number] Age/Sex: 49 / F ADM Date: 10/07/24 Loc: ER Attending Dr: Ordering Physician: Genet Nam M.D. Date of Service: 10/07/24 Procedure(s): CT head/brain wo con Accession Number(s): [id number] cc: Meenakshi Swenson M.D. [place] [address] Patient Name: RYLEE BURTON MRN: [id number] date: 1975 Sex: F Assigned Patient Location: ER Current Patient Location: ED.MAIN Accession/Order Number: [id number] Exam Date: 10/07/2024 18:52 Report Date: 10/07/2024 18:55 At the request of: GENET NAM MD Procedure: CT head/brain wo con CT head/brain wo con 10/07/2024 6:36 PM SIGNS AND SYMPTOMS: Weakness TECHNIQUE:Multi-detector CT axial slices of the brain were obtained without IV contrast. CT was performed with one or more of the following dose reduction techniques: Automated exposure control, adjustment of the mA and/or kV according to patient size, or use of iterative reconstruction technique. COMPARISON: 09/16/2024 FINDINGS: There is no shift of the midline structures, acute intracranial bleeding, mass effects, or evidence of acute ischemia. Mild atherosclerotic changes are noted in the V4 segment of the left vertebral artery and intracranial segments of the left internal carotid artery. The ventricular system is normal in size. The brainstem and the cerebellum are unremarkable. The visualized intraorbital contents, the visualized paranasal sinuses, and the infratemporal soft tissues show no acute abnormality. The osseous structures in the skull base and the calvarium show no abnormality. CT/CT head/brain wo con IMPRESSION: No acute intracranial pathology. Impression dictated by: Seven Wheatley M.D. 10/07/2024 6:55 PM Dictation Location: [place] [address] Electronically authenticated by: [id number] Y Date: 10/07/2024 18:55 Dictated By: Seven Wheatley M.D. Signed By: 10/07/241857 DD/ 54 TD/TT: Water Truck Driver: [place] [address] CT Scan Report Signed Patient: JABIER BURTON MR#: [id number] : 1975 Acct:[id number] Age/Sex: 49 / F ADM Date: 10/07/24 Loc: ER Attending Dr: Ordering Physician: Genet Nam M.D. Date of Service: 10/07/24 Procedure(s): CT head/brain wo con Accession Number(s): [id number] cc: Meenakshi Swenson M.D. [place] [address] Patient Name: RYLEE BURTON MRN: [id number] date: 1975 Sex: F Assigned Patient Loc ation: ER Current Patient Loca tion: ED.MAIN Accession/Order Numb er: [id number] Exam Date: 10/07/2024 18:52 Report Date: 10/07/2024 18:55 At the request of: GENET NAM MD Procedure: CT head/b rain wo con CT head/brain wo con 10/07/2024 6:36 PM SIGNS AND SYMPTOMS: Weakness TECHNIQUE:Multi-dete ctor CT axial slices of the brain were obtained without IV contrast. CT was per formed with one or more of the following dose reduction techniques: Automate d exposure control, adjustment of the mA and/or kV according to patient size, or use of iterative reconstruction technique. COMPARISON: 09/16/2024 FINDINGS: There is no shift of the midline structures, acute intracranial bleeding, mass effects, or evidence of acute ischemia. Mild atherosclerotic changes are noted in the V4 segm ent of the left vertebral artery and intracranial segments of the left internal carotid artery. The ventricular system is normal in size. The brainstem and the cerebellum are unremarkable. The visualized intraorbital content s, the visualized paranasal sinuses, and the infratemporal soft tissues show no acute abnormality. The osseous structures in the skull base and the calvari um show no abnormality. C T/CT head/brain wo con IMPRESSION: No acute intracrania l pathology. Impression dictated by: Seven Wheatley M.D. 10/07/2024 6:55 PM Dictation Location: [place] [address] Electronically authenticated by: [id number] Y Date: 10/07/2024 18:55 Dictated By: Seven Wheatley M.D. Signed By: 10/07/241857 DD/ 54 TD/TT: Water Truck Driver: ECG 12 lead Reviewed date:10/11/2024 03:08:40 PM Interpretation: Performing Lab: Notes/Report: Source Facility: [place] [address] Electrocardiograph Report Signed Patient: RYLEE BURTON MR#: [id number] : 1975 Acct:[id number] Age/Sex: 49 / F ADM Date: 10/07/24 Loc: MS 202-[address]: Cynthia Hernandez M.D. Ordering Physician: Genet Nam M.D. 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 Signed By: 10/10/24945 DD/ 56 TD/TT: Water Truck Driver: [place] [address] Electrocardiograph Report Signed Patient: JABIER BURTON MR#: [id number] : 1975 Acct:[id number] Age/Sex: 49 / F ADM Date: 10/07/24 Loc: MS 202-[address]: Cynthia Hernandez M.D. Ordering Physician: Genet Nam M.D. 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 Signed By: 10/10/24945 DD/ 56 TD/TT: Water Truck Driver: HCG Qualitative* Reviewed date:10/07/2024 08:47:32 PM Interpretation: Performing Lab: Notes/Report: [facility] , HCG Qualitative NEGATIVE NEGATIVE Performing Lab: see note ML - [facility] LB Troponin I High Sensitivity Reviewed date:10/07/2024 08:47:32 PM Interpretation: Performing Lab: Notes/Report: [facility] , Troponin I High Sensitivity <4.0 4.0-51.3 pg/mL CUT-OFF POINTS HAVE BEEN ESTABLISHED BASED ON THE FOURTH UNIVERSAL DEFINITION OF MYOCARDIAL INFARCTION. THE UPPER REFERENCE LIMIT (URL) OF TROPONIN, DEFINED THE 99TH PERCENTILE OF cTnI DISTRIBUTION IN A REFERENCE POPULATION, HAS BEEN CONFIRMED THE DECISION THRESHOLD FOR [place] DIAGNOSIS. 99TH PERCENTILE = 51.4 PG/ML NOTE: HIGH-SENSITIVITY TROPONIN ASSAY IS NOT INTENDED TO BE USED IN ISOLATION BUT SHOULD BE INTERPRETED IN CONJUNCTION WITH OTHER DIAGNOSTIC AND CLINICAL INFORMATION. Performing Lab: see note ML - [facility] LB Manual Differential Reviewed date:10/07/2024 08:47:32 PM Interpretation: Performing Lab: Notes/Report: [facility] , Segmented Neutrophils % Manual 79.0 43.0-75.0 Lymphocytes Percent Manual 9.0 20.5-60.0 % Monocytes Percent Manual 11.0 1.7-12.0 % Eosinophils Percent Manual 0.0 0.9-7.0 % Basophils Percent Manual 1.0 0.2-2.0 % Segmented Neut Absolute Manual 21.33 1.4-6.5 10 3/uL Lymphocytes Absolute Manual 2.43 1.20-3.80 10 3/uL Monocytes Absolute Manual 2.97 0.30-0.80 10 3/uL Eosinophils Absolute Manual 0.00 0.00-0.70 10 3/uL Basophils Abs Manual 0.27 0.00-0.10 1 0 3/uL Performing Lab: see note - [facility] LB UA RANDOM W or MICROSCOPIC Reviewed date:10/07/2024 08:47:32 PM Interpretation: Performing Lab: Notes/Report: [facility] , Color Urine DK. ORANGE YELLOW Clarity Urine CLEAR CLEAR Specific [place] Urine 1.020 1.005-1.025 pH Urine 6.0 5.0-9.0 Protein Urine 30 NEG/TRACE mg/dL Glucose Urine UA NEGATIVE NEGATIVE mg/dL Bilirubin Urine MODERATE NEGATIVE Ketones Urine >=80 NEGATIVE mg/dL Blood Urine SMALL NEGATIVE Nitrite Urine NEGATIVE NEGATIVE Urobilinogen Urine 2.0 0.2-1.0 EU/dL Leukocyte Esterase Urine NEGATIVE NEGATIVE WBC Urine 0-2 NONE SEEN #/HPF RBC Urine 0-2 0-2 #/HPF Bacteria Urine TRACE NONE SEEN #/HPF Mucus Urine TRACE NONE SEEN Squamous Epithelial Cell Urine FEW NONE/RARE #/LPF Crystals Seen? None Seen None Seen #/HPF Cast Seen? NONE SEEN NONE SEEN #/LPF Urine Culture Indicated NO Performing Lab: see note ML - [facility] LB PROF CHEM 8 (BAS METB) Reviewed date:10/07/2024 08:47:32 PM Interpretation: Performing Lab: Notes/Report: [facility] , Sodium 132 136-145 mmol/L Potassium 4.3 3.5-5.1 mmol/L Chloride 93 98-107 mmol/L Carbon Dioxide 27.8 21.0-32.0 mmol/L Anion Gap 15.5 Glucose 100 74-106 mg/dL Blood Urea Nitrogen 11.0 7.0-18.0 mg/dL Creatinine 0.55 0.55-1.02 mg/dL Estimated GFR ( Fang >60 >=60 mL/min/1.73m 2 Estimated GFR (Non- Lizabeth >60 >=60 mL/min/1.73m 2 BUN Creatinine Ratio 20.0 Calcium 10.0 8.5-10.1 mg/dL Performing Lab: see note ML - [facility] LB LIVER PROFILE Reviewed date:10/07/2024 08:47:32 PM Interpretation: Performing Lab: Notes/Report: [facility] , Bilirubin Total 0.9 0.2-1.0 mg/dL Bilirubin Direct 0.5 0.0-0.2 mg/dL Aspartate Amino Transferase 38 15-37 U/L Alanine Aminotransferase 42 14-59 U/L Alkaline Phosphatase 696 46-116 U/L Total Protein 8.3 6.4-8.2 g/dL Albumin Level 1.5 3.4-5.0 g/dL Globulin 6.8 Albumin Globulin Ratio 0.2 Performing Lab: see note ML - [facility] LB LACTATE or LACTIC ACID Reviewed date:10/07/2024 08:47:32 PM Interpretation: Performing Lab: Notes/Report: [facility] , Lactate/Lactic Acid 0.8 0.4-2.0 mmol/L Performing Lab: see note ML - [facility] LB DRUG SCREEN RAPID (URINE) Reviewed date:10/07/2024 08:47:32 PM Interpretation: Performing Lab: Notes/Report: [facility] , Cannabinoid Screen Urine POSITIVE NEGATIVE Phencyclidine Screen Urine NEGATIVE NEGATIVE Cocaine Screen Urine NEGATIVE NEGATIVE Methamphetamines Screen Urine NEGATIVE NEGATIVE Opiate Screen Urine NEGATIVE NEGATIVE Amphetamine Screen Urine NEGATIVE NEGATIVE Benzodiazepines Screen Urine NEGATIVE NEGATIVE Tricyclic Antidepressant Urine NEGATIVE NEGATIVE Methadone Screen Urine NEGATIVE NEGATIVE Barbiturates Screen Urine NEGATIVE NEGATIVE Oxycodone Screen Urine NEGATIVE NEGATIVE Buprenorphine Screen Urine NEGATIVE NEGATIVE DRUG CLASS TEST SYSTEM CUT-OFF CONCENTRATIONS ARE FOLLOWS: AMP (Amphetamine): 500 ng/mL BAR (Barbiturates): 200 ng/mL BZO (Benzodiazepines): 150 ng/mL BUP (Buprenorphine): 10 ng/mL VEGA (Cocaine): 150 ng/mL mAMP (Methamphetamine): 500 ng/mL MTD (Methadone): 200 ng/mL OPI (Opiates): 100 ng/mL OXY (Oxycodone): 100 ng/mL PCP (Phencyclidine): 25 ng/mL THC (Cannabinoids): 50 ng/mL TCA (Trycyclic Antidepressants): 300 ng/mL Performing Lab: see note ML - [facility] LB D-DIMER Reviewed date:10/07/2024 08:47:32 PM Interpretation: Performing Lab: Notes/Report: [facility] , D Dimer 0.59 <=0.59 mg/L FEU Increases in D-Dimer concentration observed with thromboembolic events can be variable due to localization, size, and age of the thrombus. Therefore, a thromboembolic event cannot be diagnosed with certainty on the basis of the reference range. D-Dimers may also be elevated for a variety of disorders including advanced age, , coronary disease, cancer, liver disease, infection, inflammation, hematoma, DIC, trauma, post-surgery, diabetes, thrombolytic or anticoagulant therapy, stress, and generalized hospitalization. Performing Lab: see note ML - [facility] LB CBC AUTO DIFF Reviewed date:10/07/2024 08:47:32 PM Interpretation: Performing Lab: Notes/Report: [facility] , White Blood Count 27.0 4.0-11.0 10 3/uL Red Blood Count 3.10 4.20-5.40 10 6/uL Hemoglobin 8.0 12.0-16.0 g/dL Hematocrit 26.0 36.0-48.0 % Mean Corpuscular Volume 83.9 81.0-99.0 fL Mean Corpuscular Hemoglobin 25.8 26.7-34.0 pg Mean Corpuscular HGB Conc 30.8 29.9-35.2 g/dL Red Cell Distribution Width 21.0 11.0-15.0 % Platelet Count 931 150-450 10 3/uL Mean Platelet Volume 8.4 9.5-13.5 fL Performing Lab: see note ML - [facility] LB BNP Reviewed date:10/07/2024 08:47:32 PM Interpretation: Performing Lab: Notes/Report: [facility] , NT Pro B Type Natriuretic Pept 963.0 <=900.0 pg/mL Performing Lab: see note ML - [facility] LB Reticulocyte Pct Auto Reviewed date:10/08/2024 05:20:20 PM Interpretation: Performing Lab: Notes/Report: [facility] , Reticulocyte Pct Auto 1.34 0.60-3.10 % Performing Lab: see note - [facility] LB Manual Differential Reviewed date:10/08/2024 05:20:20 PM Interpretation: Performing Lab: Notes/Report: [facility] , Segmented Neutrophils % Manual 70.0 43.0-75.0 [...] 2+ Performing Lab: see note ML - [facility] LB Erythrocyte Sedimentation Ra te Reviewed date:10/08/2024 05:20:20 PM Interpretation: Performing Lab: Notes/Report: [facility] , Erythrocyte Sedimentation Rate >130 <=20 mm/hr Performing Lab: see note - [facility] LB CBC AUTO DIFF Reviewed date:10/08/2024 05:20:20 PM Interpretation: Performing Lab: Notes/Report: [facility] , White Blood Count 25.4 4.0-11.0 10 [...] fL Performing Lab: see note ML - [facility] LB Manual Differential Reviewed date:09/24/2024 07:13:51 PM Interpretation: Performing Lab: Notes/Report: [facility] , Segmented Neutrophils % Manual 61.0 43.0-75.0 [...] Anisocytosis 2+ Performing Lab: see note - [facility] LB PROF 14(COMP METB) Reviewed date:09/24/2024 07:13:51 PM Interpretation: Performing Lab: Notes/Report: [facility] , Sodium 137 136-145 mmol/L Potassium 4.6 [...] 0.3 Performing Lab: see note ML - [facility] LB CBC AUTO DIFF Reviewed date:09/24/2024 07:13:51 PM Interpretation: Performing Lab: Notes/Report: [facility] , White Blood Count 19.9 4.0-11.0 10 [...] fL Performing Lab: see note ML - [facility] LB PROF 14(COMP METB) Reviewed date:09/21/2024 01:12:51 PM Interpretation: Performing Lab: Notes/Report: [facility] , Sodium 140 136-145 mmol/L Potassium 5.1 [...] Performing Lab: see note ML - [facility] LB CT abdomen pelvis w con Reviewed date:09/21/2024 01:12:51 PM Interpretation: Performing Lab: Notes/Report: Source Facility: [place] [address] CT Scan Report Signed Patient: RYLEE BURTON MR#: [id number] : 1975 Acct:[id number] Age/Sex: 49 / F ADM Date: 09/15/24 Loc: MS 202- Attending Dr: Meenakshi Swenson M.D. Ordering Physician: Meenakshi Swenson M.D. Date of Service: 09/21/24 Procedure(s): CT abdomen pelvis w con Accession Number(s): [id number] cc: Domi Altamirano NP [place] [address] Patient Name: RYLEE BURTON MRN: [id number] date: 1975 Sex: F Assigned Patient Location: [place] Current Patient Location: [place] Accession/Order Number: [id number] Exam Date: 09/21/2024 10:41 Report Date: 09/21/2024 10:48 At the request of: MEENAKSHI SWENSON MD Procedure: CT abdomen pelvis w con [...] Higuera M.D. 09/21/2024 10:48 AM Dictation Location: [place] [address] Electronically authenticated by: [id number] Y Date: 09/21/2024 10:48 Dictated By: Bonilla Higuera M.D. Signed By: 09/21/24 1051 DD/ 1048 TD/TT: Water Truck Driver: [place] [address] CT Scan Report Signed Patient: JABIER BURTON MR#: [id number] : 1975 Acct:[id number] Age/Sex: 49 / F ADM Date: 09/15/24 Loc: MS 202- Attending Dr: Irlanda Swenson M.D. Ordering Physician: Meenakshi Swenson M.D. Date of Service: 09/21/24 Procedure(s): CT abd omen pelvis w con Accession Number(s): [id number] cc: Domi Altamirano SANDWICH MACHINE OPERATOR [place] [address] Patient Name: RYLEE BURTON MRN: [id number] date: 1975 Sex: F Assigned Patient Loc ation: MS Current Patient Loca tion: Accession/Order Numb er: [id number] Exam Date: 09/21/2024 10:41 Report Date: 09/21/2024 10:48 At the request of: MEENAKSHI SWENSON MD Procedure: CT abdome n pelvis w [...] apsed. uterus unremarkable. No adnexal mass.] Peritoneum/Retroperi toneum :No free air. Trace free pelvic fluid. Evidence [...] Higuera M.D. 09/21/2024 10:48 AM Dictation Location: [place] [address] Electronically authenticated by: [id number] Y Date: 09/21/2024 10:48 Dictated By: Karina Higuera M.D. Signed By: 09/21/24 1051 DD/ 1048 TD/TT: Water Truck Driver: PROF Pope(COMP METB) Reviewed date:09/21/2024 01:12:51 PM Interpretation: Performing Lab: Notes/Report: [facility] , Sodium 140 136-145 mmol/L Potassium 4.7 [...] Performing Lab: see note ML - [facility] LB LIPASE Reviewed date:09/21/2024 01:12:51 PM Interpretation: Performing Lab: Notes/Report: Comment use am blood for amylase lipase? [facility] , Lipase 22.0 16.0-77.0 U/L Performing Lab: see note ML - [facility] LB CBC AUTO DIFF Reviewed date:09/21/2024 01:12:51 PM Interpretation: Performing Lab: Notes/Report: [facility] , White Blood Count 22.7 4.0-11.0 10 [...] Performing Lab: see note ML - [facility] LB AMYLASE Reviewed date:09/21/2024 01:12:51 PM Interpretation: Performing Lab: Notes/Report: Comment use am blood for amylase lipase? [facility] , Amylase 15 25-115 U/L Performing Lab: see note ML - [facility] LB Manual Differential Reviewed date:09/21/2024 01:12:51 PM Interpretation: Performing Lab: Notes/Report: [facility] , Segmented Neutrophils % Manual 81.0 43.0-75.0 [...] Anisocytosis 1+ Performing Lab: see note - [facility] LB PROF 14(COMP METB) Reviewed date:09/21/2024 01:12:51 PM Interpretation: Performing Lab: Notes/Report: [facility] , Sodium 141 136-145 mmol/L Potassium 3.9 [...] 0.3 Performing Lab: see note ML - [facility] LB CBC AUTO DIFF Reviewed date:09/21/2024 01:12:51 PM Interpretation: Performing Lab: Notes/Report: [facility] , White Blood Count 21.8 4.0-11.0 10 3/uL Red Blood Count 2.69 4.20-5.40 10 6/uL Hemoglobin 6.7 12.0-16.0 g/dL RESULTS CALLED TO Gayle Saxena RN @BY FLAKITO [place] at 0656 Hematocrit 21.9 36.0-48.0 % RESULTS CALLED TO Gayle Saxena RN @BY Gurmeet Rocha, ALINING INSPECTOR at 0656 Mean Corpuscular Volume 81.4 81.0-99.0 fL Mean Corpuscular Hemoglobin 24.9 26.7-34.0 pg Mean Corpuscular HGB Conc 30.6 29.9-35.2 g/dL Red Cell Distribution Width 22.8 11.0-15.0 % Platelet Count 853 150-450 10 3/uL Mean Platelet Volume 8.5 9.5-13.5 fL Performing Lab: see note - [facility] LB B pertussis IgG/M/A Ab Reviewed date:09/23/2024 07:04:33 PM Interpretation: Performing Lab: Notes/Report: [facility] , B pertussis IgG Ab 2.04 0.00-0.94 index Negative <0.95 Equivocal 0.95 - 1.04 Positive >1.04 B pertussis IgM Ab 1.2 0.0-0.9 index Negative <1.0 Borderline 1.0 - 1.1 Positive >1.1 B pertussis IgA Ab 1.1 0.0-0.9 index Negative <1.0 Borderline 1.0 - 1.1 Positive >1.1 Performed at: [facility] [address] [id number] Dietary Director: Opal Gibbs MD, Phone: [phone] Performing Lab: see note - [facility] LB Manual Differential Reviewed date:09/21/2024 01:12:51 PM Interpretation: Performing Lab: Notes/Report: [facility] , Segmented Neutrophils % Manual 72.0 [...] 1+ Performing Lab: see note ML - [facility] LB PROF 14(COMP METB) Reviewed date:09/21/2024 01:12:51 PM Interpretation: Performing Lab: Notes/Report: [facility] , Sodium 138 136-145 mmol/L Potassium 3.8 [...] 0.3 Performing Lab: see note ML - [facility] LB CBC AUTO DIFF Reviewed date:09/21/2024 01:12:51 PM Interpretation: Performing Lab: Notes/Report: [facility] , White Blood Count 17.4 4.0-11.0 10 [...] fL Performing Lab: see note ML - [facility] LB Lower Respiratory Culture Reviewed date:09/22/2024 09:17:56 PM Interpretation: Performing Lab: Notes/Report: [facility] , Lower Respiratory Culture See Below For Report Lower Respiratory Culture WILL FOLLOW Lower Respiratory Culture Routine respiratory luke Lower Respiratory Culture WILL FOLLOW Lower Respiratory Culture Performed at: - [facility] [place] Lower Respiratory Culture WILL FOLLOW Lower Respiratory Culture [address] [place], [place] [id number] Lower Respiratory Culture WILL FOLLOW Lower Respiratory Culture Dietary Director: Abel Finnegan PhD, Phone: [phone] Lower Respiratory Culture WILL FOLLOW Performing Lab: see note LC - [facility] LB SEE REPORT - Vacation Planner Id information not found for OBX-specific product engineering manager legend Gram Stain Evaluation Reviewed date:09/22/2024 09:17:56 PM Interpretation: Performing Lab: Notes/Report: [facility] , Gram Stain Evaluation See Below For Report Gram Stain Evaluation This specimen is of good quality and is acceptable for routine Gram Stain Evaluation bacterial culture. Gram Stain Evaluation This specimen is of good quality and is acceptable for routine Performing Lab: see note LC - [facility] LB Result 4 Reviewed date:09/22/2024 09:17:56 PM Interpretation: Performing Lab: Notes/Report: [facility] , Result 4 See Below For Report Result 4 SANDWICH MACHINE OPERATOR Performing Lab: see note LC - [...] Lab: see note LC - [facility] LB White Blood Cells Reviewed date:09/22/2024 09:17:56 PM Interpretation: Performing Lab: Notes/Report: [facility] , White Blood Cells See Below For Report White Blood Cells White Blood Cells None seen White Blood Cells Performing Lab: see note LC - [facility] LB Blood Culture 2 Reviewed date:09/23/2024 07:04:33 PM Interpretation: Performing Lab: Notes/Report: P[facility]S B[facility]LE [facility] , Blood Culture 2 See Below For Report Blood Culture 2 NG5D NO GROWTH AT 5 DAYS.^NO GROWTH AT 5 DAYS. Performing Lab: see note - [facility] LB Blood Culture 1 Reviewed date:09/23/2024 07:04:33 PM Interpretation: Performing Lab: Notes/Report: PEDS BOTTLE [facility] , Blood Culture 1 See Below For Report Blood Culture 1 NG5D NO GROWTH AT 5 DAYS.^NO GROWTH AT 5 DAYS. Performing Lab: see note [facility] LB TSH Reviewed date:09/18/2024 07:21:43 PM Interpretation: Performing Lab: Notes/Report: Comment use am blood [facility] , Thyroid Stimulating Hormone 0.751 0.358-3.740 uIU/mL Performing Lab: see note [facility] LB T4 Reviewed date:09/18/2024 07:21:43 PM Interpretation: Performing Lab: Notes/Report: Comment use am blood [facility] , T4 Thyroxine 6.60 4.80-13.90 ug/dL Performing Lab: see note [facility] LB PROF 14(COMP METB) Reviewed date:09/18/2024 07:21:43 PM Interpretation: Performing Lab: Notes/Report: [facility] , Sodium 138 136-145 mmol/L Potassium 3.6 [...] 0.3 Performing Lab: see note ML - [facility] LB LACTATE or LACTIC ACID Reviewed date:09/18/2024 07:21:43 PM Interpretation: Performing Lab: Notes/Report: [facility] , Lactate/Lactic Acid 1.2 0.4-2.0 mmol/L Performing Lab: see note - [facility] LB CBC AUTO DIFF Reviewed date:11/13/2024 04:23:43 PM Interpretation: Performing Lab: Notes/Report: [facility] , White Blood Count 16.1 4.0-11.0 10 3/uL Red Blood Count 2.79 4.20-5.40 10 6/uL Hemoglobin 7.5 12.0-16.0 g/dL Hematocrit 25.5 36.0-48.0 % Mean Corpuscular Volume 91.4 81.0-99.0 fL Mean Corpuscular Hemoglobin 26.9 26.7-34.0 pg Mean Corpuscular HGB Conc 29.4 29.9-35.2 g/dL Red Cell Distribution Width 20.9 11.0-15.0 % Platelet Count 671 150-450 10 3/uL Mean Platelet Volume 8.8 9.5-13.5 fL Neutrophils Percent Auto 78.0 43.0-75.0 % Lymphocytes Percent Auto 12.5 20.5-60.0 % Monocytes Percent Auto 8.0 1.7-12.0 % Eosinophils Percent Auto 0.1 0.9-7.0 % Basophils Percent Auto 0.2 0.2-2.0 % Immature Granulocytes Pct Auto 1.2 0.0-0.5 % Neutrophils Absolute Auto 12.5 1.4-6.5 10 3/uL Lymphocytes Absolute Auto 2.0 1.2-3.8 10 3/uL Monocytes Absolute Auto 1.3 0.3-0.8 10 3/uL Eosinophils Absolute Auto 0.0 0.0-0.7 10 3/uL Basophils Absolute Auto 0.0 0.0-0.1 10 3/uL Immature Granulocytes Abs Auto 0.19 0.00-0.03 10 3/uL Performing Lab: see note ML - [facility] LB Reason For Referral No Information Medications Medication SIG (Take, Route, Frequency, Duration) Notes Start Date End Date Status Indomethacin 50 MG 1 capsule with food or milk Orally Twice a day for 10 days 10/03/2024 Active Gabapentin 600 MG TAKE 1 TABLET BY MOUTH EVERY 8 HOURS Oral for 30 Days Active Metoprolol Tartrate 50 MG 1 tablet with food Orally Twice a day for 90 days Active Losartan Potassium 50 MG 1 tablet Orally Once a day for 90 days Active Hydroxyurea 500 MG 1 capsule Orally Once a day Active Budesonide-Formoterol Fumarate 80-4.5 MCG/ACT as directed Inhalation 10/20/2024 Active oxyCODONE HCl 5 MG 1 tablet as needed Orally every 6 hrs Active traMADol HCl 50 MG 1 tablet as needed Orally qid for 7 days As needed 10/03/2024 Active Glucerna Shake - Drink 237ml Orally three times daily DXE43 for 30 days 90 Bottles for 30 days- needs 21,330 ml for one month 11/18/2024 Active Atorvastatin Calcium 20 MG TAKE 1 TABLET BY MOUTH AT BEDTIME Oral for 90 Days Active Potassium Chloride ER 20 MEQ TAKE 1 TABLET BY MOUTH WITH FOOD 3 TIMES A DAY FOR 30 DAYS for 90 Active Albuterol Sulfate HFA 108 (90 Base) MCG/ACT INHALE 2 PUFFS EVERY 6 HOURS IF NEEDED FOR WHEEZING OR SHORTNESS OF BREATH. Inhalation for 90 Days Active Stiolto Respimat 2.5-2.5 MCG/ACT 2 puffs Inhalation Once a day for 30 days 10/01/2024 Active Ondansetron 4 MG 1 tablet on the tongue and allow to dissolve Orally qid 10/01/2024 Active Omeprazole 40 MG 1 tablet Oral Twice Daily for 90 days Active Social History Tobacco Use: Social History [...] Status W/U Status Risk Notes Problem Hypertension (27063737) Hypertension (I10) Active confirmed Problem Asthma (744003875) Asthma (J45.909) Active conf irmed Problem COPD - Chronic obstructive pulmonary disease (76415564) COPD (chronic obstructive pulmonary disease) (J44.9) Active confirmed Problem Thrombocythemia (0315765) Thrombocythemia (D47.3) Active confirmed Problem Pertussis (02165921) Pertussis (A37.90) Active confirmed Problem Myeloproliferative disorder (776625921) Myeloproliferative disorder (D47.1) Active confirmed Problem hypercholesterolemia (disorder) (03978834) Hypercholesteremia (E78.00) Active confirmed Problem Severe malnutrition (79554489) Severe malnutrition (E43) Active confirmed Problem Anemia (259443365) Acute anemia (D64.9) Active confirmed Vital Signs Blood pressure diastolic 72 mm Hg 10/20/2024 Height 66 in 10/20/2024 Blood pressure systolic 122 mm Hg 10/20/2024 Weight 109.8 lbs 10/20/2024 BMI 17.72 kg/m2 10/20/2024 Encounters Encounter Location Date Provider Diagnosis [facility] [address] [place] [address] 10/01/2024 Mansoor Swenson COPD (chronic obstru ctive pulmonary disease) J44.9 ; Anemia D64.9 and Thrombocythemia D47.3 [facility] [address] [place] [address] 09/30/2024 Katerine Chance [facility] [address] [place] [address] 10/20/2024 Mansoor Swenson Acute bronchitis, unspecified organism J20.9 ; Hypertension I10 ; Asthma J45.909 and Myeloproliferative disorder D47.1 [facility] [address] [place] [address] 09/21/2024 Mansoor Swenson [facility] [address] [place] [address] 09/23/2024 Mansoor Swenson [facility] [address] [facility] [place] [address] 09/23/2024 Mansoor Swenson Pertussis A37.90 [facility] [address] [facility] [place] [address] 09/23/2024 Mansoor Rody [facility] [address] [facility] [place] [address] 09/24/2024 Mansoor Swenson Acute anemia D64.9 [facility] [address] [facility] [place] [address] 10/03/2024 Mansoor Swenson COPD (chronic obstru ctive pulmonary disease) J44.9 [facility] [address] [facility] [place] [address] 10/07/2024 Mansoor Swenson [facility] [address] [facility] [place] [address] 10/11/2024 Mansoor Swenson [facility] [address] [facility] [place] [address] 10/20/2024 Mansoor Swenson [facility] [address] [facility] [place] [address] 10/20/2024 Mansoor Swenson [facility] [address] [facility] [place] [address] 10/20/2024 Mansoor Swenson [facility] [address] [facility] [place] [address] 10/20/2024 Mansoor Swenson [facility] [address] [facility] [place] [address] 10/27/2024 Mansoor Swenson [facility] [address] [facility] [place] [address] 10/31/2024 Mansoor Marcely Anemia D64.9 and Generalized weakness R53.1 [facility] [address] [facility] [place] [address] 11/02/2024 Mansoor Swenson [facility] [address] [facility] [place] [address] 11/05/2024 Mansoor Swenson [facility] [address] [facility] [place] [address] 11/13/2024 Mansoor Swenson [facility] [address] [place] [address] 11/13/2024 Mansoor Swenson Thrombocythemia D47. 3 [facility] [address] [facility] [place] [address] 11/18/2024 Mansoor Swenson [facility] [address] [facility] [place] [address] 11/18/2024 Mansoor Swenson [facility] [address] [facility] [place] [address] 11/20/2024 Mansoor Swenson [facility] [address] [facility] [place] [address] 11/21/2024 Mansoor Swenson Assessments Encounter Date Diagnosis (ICD Code) Assessment Notes Treatment Notes Treatment Clinical Notes Section Notes 10/20/2024 Acute bronchitis, unspecified organism (ICD-10 - J20.9) Rest and drink more liquids, especially water. You may use a humidifier or vaporizer to help keep the drainage moist. Fmcb-fmp-wmzoqbv Nasal Saline may help the stuffy and runny nose. Use Ibuprofen and or Tylenol as needed for fever, chills, body aches or pain. Children 5 years old should not be given zpzy-vqv-cvvixvk cough and cold medications such as guaifenesin and dextromethorphan. If you're over age 5, you may try gafx-pvl-lrfftmq cold medications such as guaifenesin and dextromethorphan, or multi-symptom cold reliever such as Dayquil to help reduce the symptoms. Antibiotics have been prescribed. You should take these until completed and follow the directions. Antibiotics can sometimes cause upset stomach, and in rare cases, serious allergic reactions or serious gastrointestinal problems. If you start having severe abdominal pain, severe vomiting, or bloody diarrhea, you should be reevaluated by your physician or urgent care immediately. Follow up with your Primary Care Provider or return to clinic if symptoms do not improve within 3-5 days. If you develop severe symptoms such as shortness of breath, repeated vomiting, coughing up blood, or chest pain you should go to the emergency room or call 911 10/20/2024 Hypertension (ICD-10 - I10) 09/23/2024 Pertussis (ICD-10 - A37.90) 09/24/2024 Acute anemia (ICD-10 - D64.9) 10/03/2024 COPD (chronic obstructive pulmonary disease) (ICD-10 - J44.9) 10/31/2024 Anemia (ICD-10 - D64.9) 10/31/2024 Generalized weakness (ICD-10 - R53.1) 11/13/2024 Thrombocythemia (ICD-10 - D47.3) 10/01/2024 COPD (chronic obstructive pulmonary disease) (ICD-10 - J44.9) 10/01/2024 Anemia (ICD-10 - D64.9) 10/01/2024 Thrombocythemia (ICD-10 - D47.3) 10/20/2024 Asthma (ICD-10 - J45.909) 10/20/2024 Myeloproliferative disorder (ICD-10 - D47.1) Plan Of Treatment Pending Test Test Name Order Date COMPREHENSIVE METABOLIC PROFILE WITH GFR 10/31/2024 CMP - Comprehensive Metabolic Panel 03/2024 CBC W/AUTO DIFF 09/23/2024 CBC W/AUTO DIFF 10/31/2024 CBC AUTO DIFF 09/24/2024 PROF 14(COMP METB) 09/24/2024 Insurance Providers Payer Name Payer Address Payer Phone Subscriber Number Group Number Insured Name Patient Relationship to Insured Coverage Start Date Coverage End Date [employer] [address] [place] [address] [id number] Rylee Burton Self - patient is the insured Medications Administered Medication Instructions Date of Administration Dosage Notes Ketorolac Tromethamine 10/01/2024 60 mg Orphenadrine Citrate 10/01/2024 60 mg Medical (General) History Medical History History ICD Code Hypertension I10 Asthma J45.909 COPD (chronic obstructive pulmonary dise ase) J44.9 Anemia D64.9 Hypercholesteremia E78.00 Surgical History Surgery Date(Month/Year) Clavical Tubal Gall Bladder Removal Appendectomy Exploratory Bone Marrow Biopsy Hospitalization History Reason Date(Month/Year) [place]/ Myeloproliferative Neoplasms 09/2024 Anemia, Weakness 08/2024
--- OUTSIDE RECORDS SUMMARY | 2024-11-26 08:29 | XMS_ITS | Encounter Summary ---
Demographics Address [address] [facility] [address] [place] [address] Mobile Phone Home Phone Work Phone Email Address Preferred Language en Marital Status Rastafarian Affiliation Unknown Race White Ethnic Group Not or Lati no Author Organization [facility] Address [address] [place] [address] Care Team Providers Care Whipper Beater Name Role Phone Domi Altamirano NP Unavailable [phone] Hiren Horton MD Primary Care Provider Domi Altamirano MANAGER COUNTRY Unavailable [phone] Domi Altamirano NP Unavailable [phone] Unallocated, Noms Provider Primary Care Provi taylor Encounter Details Date Type Department Care Team (Late st Contact Info) Description 09/23/2024 Abstract [facility] [address] [place] [address] Domi Altamirano, MANAGER COUNTRY [address] [place] [address] Social History Tobacco Use Types Packs/Day Years [...] declined 10/08/2023 How often do you attend judaism or oriental orthodox serv ices? Never 10/08/2023 Do you belong to any clubs o r organizations such as judaism groups, unions, fraternal or athletic groups, or [...] medical care, and heating? Very hard 10/08/2023 [facility] - Occupational Stress [...] any time in the past 12 m [facility], were you homeless or living in a group home (including now)? Yes 10/08/2023 Comments Unknown Sex and Gender Information Value Date Recorded Sex Assigned at Not on file Legal Sex Female 6:59 PM EDT Gender Identity Not on file Sexual Orientation Not on file documented as of this encounter Plan of Treatment Not on file documented as of this encounter Visit Diagnoses Not on filedocumented in this encounter Care Teams Whipper Beater Relationship Specialty Start Date End Date Hiren Horton MD PCP - General Family Medicine 07/26/23 10/13/24 Domi Altamirano NP [address] [place] [address] PCP - [place] [facility] 08/24/24 Unallocated, Noms Provider, [address] [place] [address] PCP - General Family Medicine 10/14/24 Domi Altamirano NP Nurse Practitioner Family Medicine 03/26/22 10/13/24 Domi Altamirano NP Nurse Practitioner Family Medicine 07/26/23 10/13/24 documented as of this encounter
--- NOTE | 2024-11-26 08:31 | CT_ITS ---
The [address] [address] Patient Name: JAIME BURTON MRN: [id number] date: 1975 Sex: F Assigned Patient Location: ED.MAIN Current Patient Location: ED.MAIN Accession/Order Number: [id number] Exam Date: 11/26/2024 09:35 Report Date: 11/26/2024 10:36 At the request of: ALEJANDRO HOROWITZ DO Procedure: CT abdomen pelvis wo/w con CLINICAL HISTORY: left flank pain since last night. Diffuse bone pain. H/o JADEN nodule CT CHEST WITH INTRAVENOUS CONTRAST: COMPARISON: 10/05/2024 TECHNIQUE: Spiral images were obtained through the chest following intravenous administration of 88 mL of Omnipaque 300. Images were reviewed using both narrow and wide window settings. This CT exam was performed using one or more following dose reduction techniques: Automated exposure control, adjustment of the mA and/or kV according to patient size, or use of iterative reconstruction technique. FINDINGS: The heart is top normal in size. There is no pericardial effusion. Coronary disease is noted. No aortic aneurysm or dissection is seen. Prevascular lymph nodes are still present though decreasing in size with short axis dimension up to 1 cm. There are still bilateral axillary lymph nodes, right greater than left with short axis dimension up to 15 mm, also minimally smaller. Left supraclavicular adenopathy is also again noted. There is a small hiatal hernia. The bony structures are intact. There is mild atelectasis and/or scarring. There is no developing consolidation, pleural effusion or pneumothorax. There is redemonstration of a left upper lobe noncalcified pulmonary nodule measuring approximately 13 mm in size. This is unchanged. CT/CT chest w con IMPRESSION: CONTINUED MEDIASTINAL, LEFT SUPRACLAVICULAR AND AXILLARY ADENOPATHY, MINIMALLY IMPROVED. ATELECTASIS AND SCARRING. SIMILAR LEFT UPPER LOBE PULMONARY NODULE. SMALL HIATAL HERNIA. CT ABDOMEN AND PELVIS WITHOUT AND WITH INTRAVENOUS CONTRAST COMPARISON: 10/08/2024 Spiral images were obtained through the abdomen and pelvis before and after intravenous administration of 80 mL of Omnipaque 300. This CT exam was performed using one or more following dose reduction techniques: Automated exposure control, adjustment of the mA and/or kV according to patient size, or use of iterative reconstruction technique. Patient is status post cholecystectomy. There is mild intra and extrahepatic biliary dilatation. No common duct stones are identified. No intrahepatic masses are seen though there may be minimal focal fat near the fossa of the ligamentum teres. The spleen is top normal in size measuring up to 13 cm in craniocaudal dimension. The pancreas shows no acute findings. Adrenal limb thickening is again seen on the left. The right kidney is slightly ptotic. Precontrast, no renal, ureteral or bladder stones are seen. Following contrast administration, the renal nephrograms are symmetric. No hydronephrosis is noted. There are small renal cysts. There is atherosclerotic plaque involving the aorta and iliac arteries. There are continued enlarged abdominal lymph nodes, not significant changed. There is minor stranding within the mesentery and a trace amount free fluid. No distended small bowel loops are seen. There is moderate stool within the colon, greater on the right. There is some old contrast within the colon on the right. Subtle levoscoliotic curvature and minor degenerative change at the spine. There is stable L1 compression deformity. Images through the pelvis show nondistended small bowel. There is moderate distal colonic stool. There is no prominent diverticular disease. The appendix is reported to be surgically absent. There are Essure sterilization inserts. The urinary bladder shows no abnormalities for the degree of distention. There may be a trace amount of dependent free fluid. There is minor stranding within the mesentery and subcutaneous fat suggesting edema. Impression: TINY RENAL CYSTS. NO OBSTRUCTIVE UROPATHY OR STONE DISEASE. CONTINUED ABDOMINAL LYMPHADENOPATHY. MODERATE COLONIC STOOL. MILD SUBCUTANEOUS AND MESENTERIC EDEMA. TRACE AMOUNT FREE FLUID. NO OTHER ACUTE FINDINGS. Impression dictated by: Iraida Bach M.D. 11/26/2024 10:36 AM Dictation Location: [employer] Electronically authenticated by: [id number] Y Date: 11/26/2024 10:36
--- OUTSIDE RECORDS SUMMARY | 2024-11-26 08:31 | XMS_ITS | Encounter Summary ---
Demographics Address [address] [facility] [address] [place] [address] Mobile Phone Home Phone Work Phone Email Address Preferred Language en Marital Status Faith Affiliation Unknown Race White Ethnic Group Not or Lati no Author Organization [facility] Address [address] [place] [address] Care Team Providers Care Millinery Worker Name Role Phone Domi Altamirano BRICK EXTRUDER OPERATOR Unavailable [phone] Hiren Horton MD Primary Care Provider [phone] Domi Altamirano BRICK EXTRUDER OPERATOR Unavailable [phone] Domi Altamirano NP Unavailable [phone] Unallocated, Noms Provider Primary Care Provi taylor Encounter Details Date Type Department Care Team (Late st Contact Info) Description 09/25/2023 Orders Only [facility] [address] [place] [address] Carolyn Seven, OD [address] [id number] Social History Tobacco Use Types Packs/Day Years [...] Region Laterality Modality Radiographic Carmen ging us Domi Altamirano BRICK EXTRUDER OPERATOR IMG XR PROCEDURES Final Result * Diabetic Retinopathy Screening - OU - Both Eyes (09/25/2023 8:54 AM EDT) Anatomical Region Laterality Modality Head Other us Seven Carolyn OD OPHTH PHOTOGRAPHY Final Result documented in this encounter Visit Diagnoses Not on filedocumented in this encounter Care Teams Millinery Worker Relationship Specialty Start Date End Date Hiren Horton MD PCP - General Family Medicine 07/26/23 10/13/24 Domi Altamirano NP [address] [place] [address] PCP - [facility] 08/24/24 Unallocated, Noms MD Mariaelena [address] [place] [address] PCP - General Family Medicine 10/14/24 Domi Altamirano NP Nurse Practitioner Family Medicine 03/26/22 10/13/24 Domi Altamirano NP Nurse Practitioner Family Medicine 07/26/23 10/13/24 documented as of this encounter
--- OUTSIDE RECORDS SUMMARY | 2024-11-26 08:31 | XMS_ITS | Encounter Summary ---
Demographics Address [address] [place] [address] Mobile Phone Home Phone Work Phone Email Address Preferred Language en Marital Status Samaritan Affiliation Unknown Race White Ethnic Group Not or Lati no Author Organization [facility] Address [address] [facility] [place] [address] Care Team Providers Care Food Safety Specialist Name Role Phone Domi Altamirano NP Unavailable [phone] Hiren Horton MD Primary Care Provider Domi Altamirano NP Unavailable [phone] Domi Altamirano NP Unavailable [phone] Unallocated, Noms Provider Primary Care Provi taylor Encounter Details Date Type Department Care Team (Late st Contact Info) Description 10/09/2023 Orders Only [facility] [address] [place] [address] Domi Munroe MD [address] [place], [place] [id number] Social History Tobacco Use Types Packs/Day Years [...] declined 10/08/2023 How often do you attend hindu or mormon serv ices? Never 10/08/2023 Do you belong to any clubs o r organizations such as hindu groups, unions, fraternal or athletic groups, or [...] hard 10/08/2023 [facility] - Occupational [...] on filedocumented in this encounter Care Teams Food Safety Specialist Relationship Specialty Start Date End Date Hiren Horton MD PCP - General Family Medicine 07/26/23 10/13/24 Domi Altamirano NP [address] [place] [address] PCP - [place] [facility] 08/24/24 Unallocated, Noms MD [place] [address] PCP - General Family Medicine 10/14/24 Domi Altamirano NP Nurse Practitioner Family Medicine 03/26/22 10/13/24 Domi Altamirano NP Nurse Practitioner Family Medicine 07/26/23 10/13/24 documented as of this encounter
--- OUTSIDE RECORDS SUMMARY | 2024-11-26 08:31 | XMS_ITS | Encounter Summary ---
Demographics Address [address] [place] [address] Mobile Phone Home Phone Work Phone Email Address Preferred Language en Marital Status Temple Affiliation Unknown Race White Ethnic Group Not or Lati no Author Organization [facility] Address [address] [place] [address] Care Team Providers Care Court Interpreter Name Role Phone Domi Altamirano NP Unavailable [phone] Hiren Horton MD Primary Care Provider [phone] Domi Altamirano NP Unavailable [phone] Domi Altamirano NP Unavailable [phone] Unallocated, Noms Provider Primary Care Provi [...] declined 10/08/2023 How often do you attend taoist or baptist serv ices? Never 10/08/2023 Do you belong to any clubs o r organizations such as taoist groups, unions, fraternal or athletic groups, or [...] in the past 12 m [facility], were you homeless or living [...] AM EDT Narrative 10/09/2023 7:09 [place] [address] Ultrasound Report Signed Patient: JAIME MERRILL MR#: [id number] : 1975 Acct:[id number] Age/Sex: 48 / F ADM Date: 10/08/23 Loc: US Attending Dr: Domi Howard EVP BUSINESS DEVELOPMENT Ordering Physician: Domi Howard NP Date of Service: 10/08/23 Procedure(s): US pelvis transvaginal Accession Number(s): [id number] cc: Domi Altamirano NP; Domi Howard NP [address] [address] Patient Name: JAIME MERRILL MRN: [id number] date: 1975 Sex: F Assigned Patient Location: US Current Patient Location: Accession/Order Number: [id number] Exam Date: 10/08/2023 18:28 Report Date: 10/09/2023 [...] M.D. Signed By: 10/09/2309 DD/ 5 TD/TT: Camera Machinist: Procedure Note Radiology, Radiologist, MD - 10/09/2023 [place] [address] Ultrasound Report Signed Patient: JAIME MERRILL KMR#: [id number] : 1975Acct:[id number] Age/Sex: 48 / FADM Date: 10/08/23 Loc: US Attending Dr: Domi Howard NP Ordering Physician: Domi Howard NP Date of Service: 10/08/23 Procedure(s): US pelvis transvaginal Accession Number(s): [id number] cc: Domi Altamirano NP; Domi Howard NP The [address] [address] Patient Name: JAIME MERRILL MRN: [id number] date: 1975 Sex: F Assigned Patient Location: US Current Patient Location: Accession/Order Number: [id number] Exam Date: 10/08/2023 18:28 Report Date: 10/09/2023 [...] Joao Barbosa M.D. Signed By:10/09/23 0709 DD/ 0706 TD/TT: Camera Machinist: us Generic External Data Provider [facility] Final Result documented in this encounter Visit Diagnoses Not on filedocumented in this encounter Care Teams Court Interpreter Relationship Specialty Start Date End Date Hiren Horton MD PCP - General Family Medicine 07/26/23 10/13/24 Domi Altamirano NP [address] [place] [address] [facility] 08/24/24 Unallocated, Noms Provider, [address] [place] [address] PCP - General Family Medicine 10/14/24 Domi Altamirano NP Nurse Practitioner Family Medicine 03/26/22 10/13/24 Domi Altamirano NP Nurse Practitioner Family Medicine 07/26/23 10/13/24 documented as of this encounter
--- OUTSIDE RECORDS SUMMARY | 2024-11-26 08:31 | XMS_ITS | Encounter Summary ---
Demographics Address [address] [place] [address] Mobile Phone Home Phone Work Phone Email Address Preferred Language en Marital Status Jain Affiliation Unknown Race White Ethnic Group Not or Lati no Author Organization [facility] Address [address] [place] [address] Care Team Providers Care Art Class Model Name Role Phone Domi Altamirano NP Unavailable [phone] Hiren Horton MD Primary Care Provider Domi Altamirano NP Unavailable [phone] Domi Altamirano NP Unavailable [phone] Unallocated, Noms Provider Primary Care Provi taylor Encounter Details Date Type Department Care Team (Late st Contact Info) Description 09/25/2023 Clinisync Result Encounter [facility] External Department Unsolicited Domi Altamirano ORGANIZATIONAL DEVELOPMENT CONSULTANT [address] [place] [address] Social History Tobacco Use Types Packs/Day Years [...] EDT Narrative 09/25/2023 3:20 [place] [address] Mammography Report Signed Patient: JAIME MERRILL MR#: [id number] : 1975 Acct:[id number] Age/Sex: 48 / F ADM Date: 09/24/23 Loc: MAMMO Attending Dr: Domi Altamirano NP Ordering Physician: Domi Altamirano NP Results: Date of Service: 09/24/23 Follow Up: Procedure(s): MM tomosynthesis screening BI Accession Number(s): [id number] cc: Domi Altamirano NP Patient Name: JAIME MERRILL MR#: [id number] : 1975 Exam Date: 09/24/2023 Ordering Doctor: [...] lymphoma cancer at age 63. LOCATION: The [facility] BREAST COMPOSITION: The breasts are [...] Signed By: 09/25/23 1520 DD/ 1519 TD/TT: Ruby Developer: Procedure Note Radiology, Radiologist, MD - 09/25/2023 [place] [address] Mammography Report Signed Patient: JAIME MERRILL KMR#: [id number] : 1975Acct:[id number] Age/Sex: 48 / FADM Date: 09/24/23 Loc: MAMMO Attending Dr: Domi Altamirano ORGANIZATIONAL DEVELOPMENT CONSULTANT Ordering Physician: Domi Altamirano NPResults: Date of Service: 09/24/23Follow Up: Procedure(s): MM tomosynthesis screening BI Accession Number(s): [id number] cc: Domi Altamirano ORGANIZATIONAL DEVELOPMENT CONSULTANT Patient Name: JAIME MERRILL MR#: [id number] : 1975 Exam Date: 09/24/2023 Ordering Doctor: ARELY ALTAMIRANO CASTER INVESTMENT CASTING RADIOLOGY REPORT PROCEDURE: MM TOMOSYNTHESIS SCREENING BI [...] lymphoma cancer at age 63. LOCATION: The [facility] BREAST COMPOSITION: The breasts are [...] M.D. Signed By:09/25/23 1520 DD/ 1519 TD/TT: Ruby Developer: Domi Altamirano NP [facility] Final Result documented in this encounter Visit Diagnoses Not on filedocumented in this encounter Care Teams Art Class Model Relationship Specialty Start Date End Date Hiren Horton MD PCP - General Family Medicine 07/26/23 10/13/24 Domi Altamirano NP [address] [place] [address] PCP - [facility] 08/24/24 Unallocated, Noms Provider, [address] [place] [address] PCP - General Family Medicine 10/14/24 Domi Altamirano NP Nurse Practitioner Family Medicine 03/26/22 10/13/24 Domi Altamirano NP Nurse Practitioner Family Medicine 07/26/23 10/13/24 documented as of this encounter
--- OUTSIDE RECORDS SUMMARY | 2024-11-26 08:31 | XMS_ITS | Encounter Summary ---
Demographics Address [address] [facility] [address] [place] [address] Mobile Phone Home Phone Work Phone Email Address Preferred Language en Marital Status Alevism Affiliation Unknown Race White Ethnic Group Not or Lati no Author Organization [facility] Address [address] [place] [address] Care Team Providers Care Administrative Office Clerk Name Role Phone Domi Altamirano MARKET RESEARCHER Unavailable [phone] Hiren Horton MD Primary Care Provider [phone] Domi Altamirano MARKET RESEARCHER Unavailable [phone] Domi Altamirano NP Unavailable [phone] Unallocated, Noms Provider Primary Care Provi taylor Encounter Details Date Type Department Care Team (Late st Contact Info) Description 10/03/2023 Orders Only [facility] [address] [place] [place] [address] Orly Rushing MD [address] [place] [address] Social History Tobacco Use Types [...] on filedocumented in this encounter Care Teams Administrative Office Clerk Relationship Specialty Start Date End Date Hiren Horton MD PCP - General Family Medicine 07/26/23 10/13/24 Domi Altamirano NP [address] [place] [address] PCP - [facility] 08/24/24 Unallocated, Noms Provider, [address] [place] [address] PCP - General Family Medicine 10/14/24 Domi Altamirano NP Nurse Practitioner Family Medicine 03/26/22 10/13/24 Domi Altamirano NP Nurse Practitioner Family Medicine 07/26/23 10/13/24 documented as of this encounter
--- OUTSIDE RECORDS SUMMARY | 2024-11-26 08:32 | XMS_ITS | Clinical Summary ---
Demographics Address [address] [place] [address] Mobile Phone Home Phone Work Phone Email Address Preferred Language en Marital Status Mandaeism Affiliation Unknown Race White Ethnic Group Not or Lati no Author Organization [facility] Address [address] [place] [address] Care Team Providers Care Pitch Worker Name Role Phone Domi Altamirano MIGUEL A Unavailable [phone] Unallocated, [facility] Provider Primary Care Provi taylor Allergies Active Allergy Reactions Criticality Noted Date Comments Erythromycin Unknown 02/21/2023 Latex Unknown 02/21/2023 Methylprednisolone Unknown 02/21/2023 Methylprednisolone Sodium Succ Anaphylaxis High 12/0 08/2016 Tramadol 07/26/2023 Xdnqewpcgfg-Lxkwiiepk-Sfvxid Shortness of breath High 02/21/2023 Medications cetirizine [...] 07/22/2024 Bronchitis 12/11/2023 04/14/2024 Overview (01/10/2024): [facility] [id number] Exp: 03/25/24 Lot # [id number] Assessment & Plan (01/10/2024 1:18 PM EDT): No wheezing noted, multiple allergies and has been on z pack as well as doxy and steroids Will order health trax Possible allergy trigger?? Samples of vandana 180mg 1 po daily, and #2 samples Lot [id number], exp 08/18 Airsupra sample #1; [id number], exp 04/2024 Astepro allergy nasal spray 2 [...] AM EDT): Tremayne samples X3 given Lot: [id number], exp 12/18 Assessment & Plan (10/15/2023 7:48 [...] External Data 09/23/2024 Travel 09/23/2024 Abstract [facility] [address] [place] [address] Domi Altamirano, DIRECTOR OF CORPORATE RESPONSIBILITY 09/22/2024 Abstract [facility] [address] [place] [address] Domi Altamirano, DIRECTOR OF CORPORATE RESPONSIBILITY 09/22/2024 Orders Only [facility] [address] [place] [address] Nakul Swenson MD 09/22/2024 Abstract [facility] [address] [place] [address] Domi Altamirano, MIGUEL A 09/18/2024 Clinisync Result Encounter [facility] External Department Unsolicited Provider, Generic External Data 09/18/2024 Abstract [facility] [address] [place] [address] Domi Altamirano, MIGUEL A 09/17/2024 Abstract [facility] [address] [place] [address] Domi Altamirano, MIGUEL A 09/17/2024 [facility] [address] [place] [address] Li Ku MD 09/17/2024 Abstract [facility] [address] [place] [address] Domi Altamirano NP 09/16/2024 Abstract [facility] [address] [place] [address] Domi Altamirano NP 09/16/2024 Orders Only [facility] [address] [place] [address] Domi Altamirano NP 09/16/2024 Abstract [facility] [address] [place] [address] Domi Altamirano NP 09/16/2024 Clinisync Result Encounter [...] How often do you attend buddhism or christianity serv ices? Never 10/08/2023 Do you belong [...] medical care, and heating? Very hard 10/08/2023 [facility] of Occupat ional Health - Occupational Stress [...] time in the past 12 m [facility], were you homeless or living [...] URINE Routine 10/14/2024 5:00 PM EDT IMMUNOFIXATION,[place]UM [place] Routine 10/14/2024 12:20 PM EDT [facility] PANEL TO NEOGENOMIC Routine 10/14/2024 12:20 PM [...] * (ABNORMAL) Fibrinogen (10/15/2024 5:53 AM EDT) [facility] Signature FIBRINOGEN 945(H) 200 - 393 mg/dL 10/15/2024 7:20 AM EDT [facility] Comment: A hematocrit value greater than 55% may lead to inaccurate results in coagulation testing. Patients having hematocrit values >55% require a special collection tube for coagulation studies. Please contact the laboratory at [phone] for redraw instructions. Other Topography unknown / Unknown 10/15/2024 5:53 AM EDT 10/15/2024 6:15 AM EDT Jose M Bryan Mercedes DO LAB BLOOD ORDERABLES Chloe l Result Performing Organization Address City/[facility]/ZIP Co de Phone Number [facility] [address] [place] [address], [facility] [address] [place] [address] * PROTEIN ELECTRO, RANDOM URINE (10/14/2024 5:00 PM EDT) PROTEIN, TOTAL, URINE 19.9 Not Estab. mg/dL 10/18/2024 4:08 PM EDT [facility] ALBUMIN, URINE 6.9 . % 10/18/2024 4:08 PM EDT [facility] SPFSH-9-QWJKEBDI, URINE 2.9 . % 10/18/2024 4:08 PM EDT [facility] AIJXF-3-BFWMVZDP, URINE 33.9 . % 10/18/2024 4:08 PM EDT [facility] BETA GLOBULIN, URINE 29.0 . % 10/18/2024 4:08 PM EDT [facility] GAMMA GLOBULIN, URINE 27.3 . % 10/18/2024 4:08 PM EDT [facility] M-SPIKE % 5.0 Not Observed % 10/18/2024 4:08 PM EDT [facility] Comment:Alpha 2 and beta reg ions appear asymmetrical. PLEASE NOTE: Comment . 10/18/2024 4:08 PM EDT [facility] Comment: Protein electrophoresis scan will follow via computer, mail, or assistant chief engineer delivery. Performed at: [address] [id number] Review Assistant: Abel Finnegan PhD, Phone: [phone] Other 10/14/2024 5:00 PM EDT 10/14/2024 5:08 PM EDT Jose M Mercedes DO LAB BLOOD ORDERABLES Chloe l Result Performing Organization Address City/[facility]/ZIP Co de Phone Number [address] [place] [address], [place] * H PANEL TO NEOGENOMIC (10/14/2024 12:20 PM EDT) [facility] PANEL TO NEOGENOMIC 10/16/2024 8:38 AM EDT [facility] Comment:See report. Scanned copy available in EMR. Other Topography unknown / Unknown 10/14/2024 12:20 PM EDT 10/14/2024 12:30 PM EDT Jose M Mercedes DO LAB BLOOD ORDERABLES Chloe l Result Performing Organization Address City/[facility]/ZIP Co de Phone Number [facility] [address] [place] [address], [facility] [address] [place] [address] * FREE K+L LT CHAINS, QN, S (10/14/2024 12:20 PM EDT) [facility] FREE KAPPA LIGHT CHAINS, S 66.0 3.3 - 19.4 mg/L 10/15/2024 2:36 PM EDT [facility] FREE LAMBDA LIGHT CHAINS, S 63.7 5.7 - 26.3 mg/L 10/15/2024 2:36 PM EDT [facility] KAPPA/LAMBDA RATIO, S 1.04 0.26 - 1.65 10/15/2024 2:36 PM EDT [facility] Comment: Performed at: [address] [id number] Review Assistant: Abel Finnegan PhD, Phone: [phone] Other Topography unknown / Unknown 10/14/2024 12:20 PM EDT 10/14/2024 12:30 PM EDT Narrative [facility] - 10/16/2024 4:08 PM EDT OK TO DO IN THE AM FOR MORNING ROUNDS, PER SOPHIE DAVIS, PLS.@ IS[facility]AC DATE was changed from 10/14/24 to 10/15/24 Jose M Mercedes DO LAB BLOOD ORDERABLES Chloe l Result [place] [id number], * IMMUNOFIXATION,SERUM ([facility]) (10/14/2024 12:20 PM EDT) [facility] IMMUNOFIXATION, SERUM Comment: . 10/16/2024 4:08 PM EDT [facility] Comment: Presence of monoclonal protein is unclear at this time. Suggest repeat in 3 to 6 months if clinically indicated. IMMUNOGLOBULIN G 980 586 - 1,602 mg/dL 10/16/2024 4:08 PM EDT [facility] IMMUNOGLOBULIN A, SERUM 397 87 - 352 mg/dL 10/16/2024 4:08 PM EDT [facility] IMMUNOGLOBULIN M, SERUM 166 26 - 217 mg/dL 10/16/2024 4:08 PM EDT [facility] Comment: Performed at: - [facility] [id number] Review Assistant: Abel Finnegan PhD, Phone: [phone] Other Topography unknown / Unknown 10/14/2024 12:20 PM EDT 10/14/2024 12:30 PM EDT Narrative [facility] - 10/16/2024 4:08 PM EDT OK TO DO IN THE AM FOR MORNING ROUNDS, PER SOPHIE DAVIS, PLS.@ ISAAC DATE was changed from 10/14/24 to 10/15/24 us Jose M Mercedes DO LAB BLOOD ORDERABLES Chloe bauman Result [facility] [address] [place] [address], * Protein electrophoresis, serum (10/14/2024 12:20 PM EDT) Pathologist [facility] TOTAL PROTEIN, SERUM 6.3 6.0 - 8.5 g/dL 10/15/2024 1:08 PM EDT [facility] ALBUMIN, SERUM 1.8 2.9 - 4.4 g/dL 10/15/2024 1:08 PM EDT [facility] VGWZQ-1-IQZFVNAQ 0.8 0.0 - 0.4 g/dL 10/15/2024 1:08 PM EDT [facility] LCRHI-3-KWOSTPQC 1.6 0.4 - 1.0 g/dL 10/15/2024 1:08 PM EDT [facility] BETA GLOBULIN 1.1 0.7 - 1.3 g/dL 10/15/2024 1:08 PM EDT [facility] GAMMA GLOBULIN 1.0 0.4 - 1.8 g/dL 10/15/2024 1:08 PM EDT [facility] M-SPIKE Comment: Not Observed g/dL 10/15/2024 1:08 PM EDT [facility] Comment: SPE shows asymmetrical beta. Suggest serum BIRDIE and free light chain analysis for further evaluation. GLOBULIN, TOTAL 4.5 2.2 - 3.9 g/dL 10/15/2024 1:08 PM EDT [facility] A/G RATIO 0.4 0.7 - 1.7 10/15/2024 1:08 PM EDT [facility] SPE-NOTE Comment . 10/15/2024 1:08 PM EDT [facility] Comment: Protein electrophoresis scan will follow via computer, mail, or assistant chief engineer delivery. Performed at: [address] [id number] Review Assistant: Abel Finnegan PhD, Phone: [phone] Other Topography unknown / Unknown 10/14/2024 12:20 PM EDT 10/14/2024 12:30 PM EDT Narrative [facility] - 10/16/2024 4:08 PM EDT OK TO DO IN THE AM FOR MORNING ROUNDS, PER SOPHIE DAVIS, PLS.@ [facility] DATE was changed from 10/14/24 to 10/15/24 Jose M Mercedes DO LAB BLOOD ORDERABLES Chloe l Result Performing Organization Address City/[facility]/ZIP Co de Phone Number [facility] [address] [place] [address], * (ABNORMAL) Haptoglobin (10/14/2024 12:20 PM EDT) HAPTOGLOBIN >400(H) 44 - 215 mg/dL 10/14/2024 1:34 PM EDT [facility] Other Topography unknown / Unknown 10/14/2024 12:20 PM EDT 10/14/2024 12:30 PM EDT Jose M Mercedes DO LAB BLOOD ORDERABLES Chloe l Result [facility] [address] [place] [address], [facility] [address] [place] [address] * RETICULOCYTE PCT AUTO (09/30/2024 8:42 AM EDT) RETICULOCYTE PCT AUTO 1.34 0.60 - 3.10 % [facility] 09/30/2024 8:42 AM EDT 09/30/2024 8:49 AM EDT Narrative [facility] - 09/30/2024 9:47 AM EDT Generic External Data Provider LAB BLOOD ORDERAB LES Final Result [facility] * (ABNORMAL) MHPT DIFFERENTIAL (09/30/2024 8:42 AM [...] Data Provider [facility] F inal Result [facility] * (ABNORMAL) ALL SED RATE (09/30/2024 8:42 AM EDT) [facility] SED RATE >130(H) <=20 mm/hr [facility] 09/30/2024 8:42 AM EDT 09/30/2024 8:49 AM EDT Narrative [facility] - 09/30/2024 9:05 AM EDT Generic External Data Provider [facility] F inal Result Performing Organization Address [facility]/ZIP Co de Phone Number [facility] * (ABNORMAL) ALL CBC WITH AUTO DIFF (09/30/2024 8:42 AM EDT) [facility] WBC 25.4(H) 4.0 - 11.0 10 3/uL [...] CLINISYNC F inal Result Performing Organization Address [facility]/ZIP Co de Phone Number [facility] * CT ABDOMEN/PELVIS WITH CONTRAST (09/22/2024 11:14 [...] AT 5 DAYS.^NO GROWTH AT 5 DAYS. [facility] 09/18/2024 1:30 PM EDT 09/18/2024 1:37 PM EDT Narrative [facility] - 09/23/2024 3:26 PM EDT PEDS BOTTLE Generic External Data Provider LAB BLOOD ORDERAB LES Final Result Performing Organization Address [facility]/ZIP Co de Phone Number [facility] * BLOOD CULTURE 1 (09/18/2024 1:22 PM EDT) BLOOD CULTURE 1 Blood Culture 1 NG5D NO GROWTH AT 5 DAYS.^NO GROWTH AT 5 DAYS. [facility] 09/18/2024 1:22 PM EDT 09/18/2024 1:36 PM EDT Narrative [facility] - 09/23/2024 3:25 PM EDT PEDS BOTTLE Generic External Data Provider LAB BLOOD ORDERAB LES Final Result [facility] * LOWER RESPIRATORY CULTURE (09/18/2024 9:53 AM EDT) LOWER RESPIRATORY CULTURE Lower Respiratory Culture WILL FOLLOW [facility] LOWER RESPIRATORY CULTURE Routine respiratory luke [facility] LOWER RESPIRATORY CULTURE [facility]: [facility]IR[facility] CULTURE [address] [place], [place] [id number] [facility] LOWER RESPIRATORY CULTURE Review Assistant: Abel Finnegan PhD, Phone: [phone] TB 09/18/2024 9:53 AM EDT 09/18/2024 10:37 AM EDT Narrative [facility] - 09/21/2024 9:07 PM EDT us Generic External Data Provider LAB BLOOD ORDERAB LES Final Result Performing Organization Address [facility] Co de Phone Number CLINKAEUT TB * GRAM STAIN EVALUATION (09/18/2024 9:53 AM EDT) GRAM STAIN EVALUATION Gram Stain Evaluation This specimen is of good quality and is acceptable for routine TB GRAM STAIN EVALUATION bacterial culture. TB 09/18/2024 9:53 AM EDT 09/18/2024 10:37 AM EDT Narrative [facility] - 09/21/2024 9:07 PM EDT us Generic External Data Provider LAB BLOOD ORDERAB LES Final Result Performing Organization Address [facility] Co de Phone Number ESSIE[facility] TB * RESULT 4 (09/18/2024 9:53 AM EDT) RESULT 4 Result 4 DIRECTOR OF CORPORATE RESPONSIBILITY TB 09/18/2024 9:53 AM EDT 09/18/2024 10:37 AM EDT Narrative [facility] - 09/21/2024 9:07 PM EDT us Generic External Data Provider LAB BLOOD ORDERAB LES Final Result Performing Organization Address [facility] Co de Phone Number ESSIEUT TB * RESULT 3 (09/18/2024 9:53 AM EDT) RESULT 3 Result 3 Few gram negative cocci TB 09/18/2024 9:53 AM EDT 09/18/2024 10:37 AM EDT Narrative [facility] - 09/21/2024 9:07 PM EDT us Generic External Data Provider LAB BLOOD ORDERAB LES Final Result [facility] * RESULT 2 (09/18/2024 9:53 AM EDT) RESULT 2 Result 2 Few gram negative rods. [facility] 09/18/2024 9:53 AM EDT 09/18/2024 10:37 AM EDT Narrative [facility] - 09/21/2024 9:07 PM EDT us Generic External Data Provider LAB BLOOD ORDERAB LES Final Result Performing Organization Address [facility]/ZIP Co de Phone Number [facility] * RESULT 1 (09/18/2024 9:53 AM EDT) RESULT 1 Result 1 Many gram positive cocci. [facility] 09/18/2024 9:53 AM EDT 09/18/2024 10:37 AM EDT Narrative [facility] - 09/21/2024 9:07 PM EDT us Generic External Data Provider LAB BLOOD ORDERAB LES Final Result Performing Organization Address [facility]/ZIP Co de Phone Number [facility] * EPITHELIAL CELLS (09/18/2024 9:53 AM EDT) EPITHELIAL CELLS Epithelial Cells Few [facility] 09/18/2024 9:53 AM EDT 09/18/2024 10:37 AM EDT Narrative [facility] - 09/21/2024 9:07 PM EDT us Generic External Data Provider LAB BLOOD ORDERAB LES Final Result Performing Organization Address City/[facility]/ZIP Co de Phone Number [facility] * WHITE BLOOD CELLS (09/18/2024 9:53 AM EDT) WHITE BLOOD CELLS White Blood Cells TBH WHITE BLOOD CELLS None seen [facility] 09/18/2024 9:53 AM EDT 09/18/2024 10:37 AM EDT Narrative [facility] - 09/21/2024 9:07 PM EDT Generic External Data Provider LAB BLOOD ORDERAB LES Final Result [facility] * CT chest wo IV contrast [...] IMG XR PROCEDURES Final Result * (ABNORMAL) [facility] URINALYSIS, WITH MICROSCOPIC (09/16/2024 1:21 AM EDT) [...] Narrative [facility] - 09/16/2024 1:52 AM EDT us Billie CAI CLINISYNC Final Result [facility] * POCT glycosylated hemoglobin (Hb A1C) docked device (07/22/2024 8:47 AM EDT) Hemoglobin A1C 5.6 Blood Venous blood specimen / Unknown 07/22/2024 8:47 AM EDT us Domi Altamirano NP POINT OF CARE TEST ENTER/EDIT O RDERABLES Final Result * Cologuard?? colon cancer screening (10/09/2023 1:30 PM EDT) NONINV COLON CA DNA+OCC BLD SCRN STL-IMP Negative Negative 10/21/2023 5:33 PM EDT [email or web address] (CLIA #:[id number]) Comment: NEGATIVE TEST RESULT. A negative Cologuard [...] (Ousmane Buitrago al, N Engl J Med 2014;370(14):3623-4905) The normal value (reference range) for this assay is negative. COLOGUARD RE-SCREENING RECOMMENDATION: Periodic colorectal cancer screening is an important part of preventive healthcare for asymptomatic individuals at average risk for colorectal cancer. Following a negative Cologuard result, the [place] Cancer Society and U.S. Multi-Society Task Force screening guidelines recommend a Cologuard re-screening interval of 3 years. References: [place] Cancer Society Guideline for Colorectal Cancer Screening: https://www.cancer.org/cancer/dqdsy-wpbcka-lwmzzw/rkwoscjgt-kbuqythsi-duhiasn/ac s-rec ommendations.html.; Jonathan DK, John CR, Ciro AdamsK, Colorectal Cancer Screening: Recommendations for Physicians and Patients from the U.S. Multi-Society Task Force on Colorectal Cancer Screening , Am J Gastroenterology 2017; 112:3967-2071. TEST DESCRIPTION: Composite algorithmic analysis of stool [...] (Ousmane Buitrago al, N Engl J Med 2014;370(14):2431-5278.) Cologuard may produce a false negative or false positive result (no colorectal cancer or precancerous polyp present at colonoscopy follow up). A negative Cologuard test result does not guarantee the absence of CRC or advanced adenoma (pre-cancer). The current Cologuard screening interval is every 3 years. ([place] Cancer Society and U.S. Multi-Society Task Force). Cologuard performance data in a 10,000 patient pivotal study using colonoscopy as the reference method can be accessed at the following location: www.[employer].com/results. Additional description of the Cologuard test process, warnings and precautions can be found at www.colAzullord.com. Stool specimen (specimen) 10/09/2023 1:30 PM EDT 10/11/2023 8:01 AM EDT Domi Altamirano NP LAB MOLECULAR DIAGNOSTICS ORDER DEANDRE Final Result [employer] (CLIA #:[id number]) [address] [place] [address], [employer] (CLIA #:[id number]) [address] [place] [address] * MM TOMOSYNTHESIS SCREENING BI (09/25/2023 3:19 PM EDT) Anatomical Region Laterality Modality Other 09/25/2023 3:19 PM EDT Narrative 09/25/2023 3:20 [place] [address] Mammography Report Signed Patient: RYLEE BURTON MR#: [id number] : 1975 Acct:[id number] Age/Sex: 48 / F ADM Date: 09/24/23 Loc: MAMMO Attending Dr: Domi Altamirano NP Ordering Physician: Domi Altamirano NP Results: Date of Service: 09/24/23 Follow Up: Procedure(s): MM tomosynthesis screening BI Accession Number(s): [id number] cc: Domi Altamirano NP Patient Name: RYLEE BURTON MR#: [id number] : 1975 Exam Date: 09/24/2023 Ordering Doctor: [...] at age 63. LOCATION: [facility] BREAST COMPOSITION: The breasts are [...] Signed By: 09/25/23 1520 DD/ 1519 TD/TT: Appliance Repair Technician: Procedure Note Radiology, Radiologist, MD - 09/25/2023 [place] [address] Mammography Report Signed Patient: RYLEE BURTON KMR#: [id number] : 1975Acct:[id number] Age/Sex: 48 / FADM Date: 09/24/23 Loc: MAMMO Attending Dr: Domi Altamirano NP Ordering Physician: Domi Altamirano NPResults: Date of Service: 09/24/23Follow Up: Procedure(s): MM tomosynthesis screening BI Accession Number(s): [id number] cc: Domi Altamirano NP Patient Name: RYLEE BURTON MR#: [id number] : 1975 Exam Date: 09/24/2023 Ordering Doctor: [...] at age 63. LOCATION: [facility] BREAST COMPOSITION: The breasts are [...] M.D. Signed By:09/25/23 1520 DD/ 1519 TD/TT: Appliance Repair Technician: Domi Altamirano DIRECTOR OF CORPORATE RESPONSIBILITY [facility] IMAGING Final Result * Diabetic Retinopathy Screening - OU - Both Eyes (09/25/2023 8:54 AM EDT) Anatomical Region Laterality Modality Head Other us Seven Leon OD OPHTH PHOTOGRAPHY Final Result from Last 3 Months or Most Recently Relevant to Health Maintenance Insurance * Guarantor: Rylee Burton Account Type Relation to Patient Date of Phone Billing Address Personal/Family Self 1975 [address] [facility] [address] [place] [address] [facility] Care Teams Pitch Worker Relationship Specialty Start Date End Date Domi Altamirano NP [address] [place] [address] PCP - [employer] 08/24/24 Unallocated, [facility] Provider, [address] [place] [address] PCP - General Family Medicine 10/14/24
--- OUTSIDE RECORDS SUMMARY | 2024-11-26 08:32 | XMS_ITS | Encounter Summary ---
Demographics Address [address] [facility] [address] [place] [address] Mobile Phone Home Phone Work Phone Email Address Preferred Language en Marital Status Latter-Day Affiliation Unknown Race White Ethnic Group Not or Lati no Author Organization [facility] Address [address] [place] [address] Care Team Providers Care Snuff Packing Machine Operator Name Role Phone Domi Altamirano NP Unavailable [phone] Hiren Horton MD Primary Care Provider Domi Altamirano COACH DRIVER Unavailable [phone] Domi Altamirano NP Unavailable [phone] Unallocated, [facility] Provider Primary Care Provi taylor Encounter Details Date Type Department Care Team (Late st Contact Info) Description 01/10/2024 Abstract [facility] [address] [place] [address] Domi Altamirano, COACH DRIVER [address] [facility] [place] [address] Social History Tobacco Use Types Packs/Day Years [...] declined 10/08/2023 How often do you attend latter-day or gnosticist serv ices? Never 10/08/2023 Do you belong to any clubs o r organizations such as latter-day groups, unions, fraternal or athletic groups, or [...] medical care, and heating? Very hard 10/08/2023 [facility] [place] of Occupat ional Health - Occupational Stress [...] on filedocumented in this encounter Care Teams Snuff Packing Machine Operator Relationship Specialty Start Date End Date Hiren Horton MD PCP - General Family Medicine 07/26/23 10/13/24 Domi Altamriano NP [address] [place] [address] PCP - [employer] 08/24/24 Unallocated, [facility] Provider, [address] [place] [address] PCP - General Family Medicine 10/14/24 Domi Altamirano NP Nurse Practitioner Family Medicine 03/26/22 10/13/24 Domi Altamirano NP Nurse Practitioner Family Medicine 07/26/23 10/13/24 documented as of this encounter
--- OUTSIDE RECORDS SUMMARY | 2024-11-26 08:32 | XMS_ITS | Encounter Summary ---
Demographics Address [address] [facility] [address] [place] [address] Mobile Phone Home Phone Work Phone Email Address Preferred Language en Marital Status Christian Affiliation Unknown Race White Ethnic Group Not or Lati no Author Organization [facility] Address [address] [place] [address] Care Team Providers Care Radar Repairer Name Role Phone Domi Altamirano NP Unavailable [phone] Hiren Horton MD Primary Care Provider Domi Altamirano NET MAKER Unavailable [phone] Domi Altamirano NP Unavailable [phone] Unallocated, Noms Provider Primary Care Provi taylor Encounter Details Date Type Department Care Team (Late st Contact Info) Description 12/18/2023 Orders Only [facility] [address] [place] [address] Domi Altamirano, NET MAKER [address] [facility] [place] [address] Social History Tobacco Use Types Packs/Day Years [...] declined 10/08/2023 How often do you attend bahai or religion serv ices? Never 10/08/2023 Do you belong to any clubs o r organizations such as bahai groups, unions, fraternal or athletic groups, or [...] medical care, and heating? Very hard 10/08/2023 [facility] [place] of Occupat ional Health - Occupational Stress [...] any time in the past 12 m [facility], were you homeless or living in a senior care (including now)? Yes 10/08/2023 Comments Unknown Sex [...] LABS (12/18/2023 11:09 AM EDT) Domi Altamirano NP LAB CHG PERFORMABLES Final Resu lt documented in this encounter Visit Diagnoses Not on filedocumented in this encounter Care Teams Radar Repairer Relationship Specialty Start Date End Date Hiren Horton MD PCP - General Family Medicine 07/26/23 10/13/24 Domi Altamirano NP [address] [place] [address] PCP - [place] [employer] 08/24/24 Unallocated, Noms MD Mariaelena [address] [place] [address] PCP - General Family Medicine 10/14/24 Domi Altamirano NP Nurse Practitioner Family Medicine 03/26/22 10/13/24 Domi Altamirano NP Nurse Practitioner Family Medicine 07/26/23 10/13/24 documented as of this encounter
--- OUTSIDE RECORDS SUMMARY | 2024-11-26 08:32 | XMS_ITS | Encounter Summary ---
Demographics Address [address] [facility] [address] [place] [address] Mobile Phone Home Phone Work Phone Email Address Preferred Language en Marital Status Latter-Day Affiliation Unknown Race White Ethnic Group Not or Lati no Author Organization [facility] Address [address] [place] [address] Care Team Providers Care Life Trainer Name Role Phone Domi Altamirano SPRINKLING SYSTEM IRRIGATOR Unavailable [phone] Hiren Horton MD Primary Care Provider [phone] Domi Altamirano SPRINKLING SYSTEM IRRIGATOR Unavailable [phone] Domi Altamirano NP Unavailable [phone] Unallocated, Noms Provider Primary Care Provi taylor Encounter Details Date Type Department Care Team (Late st Contact Info) Description 12/31/2023 Orders Only [facility] [address] [facility] [place] [id number] Abran West MD [address], [place] [id number] Social History Tobacco Use Types Packs/Day Years [...] declined 10/08/2023 How often do you attend jewish or sabianist serv ices? Never 10/08/2023 Do you belong to any clubs o r organizations such as jewish groups, unions, fraternal or athletic groups, or [...] on filedocumented in this encounter Care Teams Life Trainer Relationship Specialty Start Date End Date Hiren Horton MD PCP - General Family Medicine 07/26/23 10/13/24 Domi Altamirano NP [address] [place] [address] PCP - [place] [employer] 08/24/24 Unallocated, [place] [address] PCP - General Family Medicine 10/14/24 Domi Altamirano NP Nurse Practitioner Family Medicine 03/26/22 10/13/24 Domi Altamirano NP Nurse Practitioner Family Medicine 07/26/23 10/13/24 documented as of this encounter
--- OUTSIDE RECORDS SUMMARY | 2024-11-26 08:32 | XMS_ITS | Encounter Summary ---
Demographics Address [address] [facility] [address] [place] [address] Mobile Phone Home Phone Work Phone Email Address Preferred Language en Marital Status Tenriism Affiliation Unknown Race White Ethnic Group Not or Lati no Author Organization [facility] Address [address] [place] [address] Care Team Providers Care Electromedical Service Engineer Name Role Phone Domi Altamirano NP Unavailable [phone] Hiren Horton MD Primary Care Provider Domi Altamirano CAREER DEVELOPMENT COORDINATOR/TEACHER Unavailable [phone] Domi Altamirano NP Unavailable [phone] Unallocated, Noms Provider Primary Care Provi taylor Encounter Details Date Type Department Care Team (Late st Contact Info) Description 09/16/2024 Abstract [facility] [address] [place] [address] Domi Altamirano, CAREER DEVELOPMENT COORDINATOR/TEACHER [address] [place] [id number] Social History Tobacco Use Types Packs/Day Years [...] declined 10/08/2023 How often do you attend zoroastrian or jew serv ices? Never 10/08/2023 Do you belong to any clubs o r organizations such as zoroastrian groups, unions, fraternal or athletic groups, or [...] medical care, and heating? Very hard 10/08/2023 [facility] [place] of Occupat ional Health - Occupational Stress [...] any time in the past 12 m [facility], were you homeless or living [...] on filedocumented in this encounter Care Teams Electromedical Service Engineer Relationship Specialty Start Date End Date Hiren Horton MD PCP - General Family Medicine 07/26/23 10/13/24 Domi Altamirano NP [address] [place] [address] PCP - [place] [employer] 08/24/24 Unallocated, Noms Provider, [address] [place] [address] PCP - General Family Medicine 10/14/24 Domi Altamirano NP Nurse Practitioner Family Medicine 03/26/22 10/13/24 Domi Altamirano NP Nurse Practitioner Family Medicine 07/26/23 10/13/24 documented as of this encounter
--- OUTSIDE RECORDS SUMMARY | 2024-11-26 08:32 | XMS_ITS | Encounter Summary ---
Demographics Address [address] [facility] [address] [place] [address] Mobile Phone Home Phone Work Phone Email Address [email or web address] Preferred Language en Marital Status Buddhist Affiliation Unknown Race White Ethnic Group Not or Lati no Author Organization [facility] Address [address] [place] [address] Care Team Providers Care Police Department Secretary Name Role Phone Domi Altamirano NP Unavailable [phone] Hiren Horton MD Primary Care Provider [phone] Domi Altamirano ELECTRIC METER TESTER Unavailable [phone] Domi Altamirano NP Unavailable [phone] Unallocated, Noms Provider Primary Care Provi taylor Encounter Details Date Type Department Care Team (Late st Contact Info) Description 12/17/2023 Orders Only [facility] [address] [place] [address] Domi Altamirano, ELECTRIC METER TESTER [address] [facility] [place] [address] Social History Tobacco Use Types Packs/Day Years [...] How often do you attend christian or cheondoism serv ices? Never 10/08/2023 Do you belong [...] medical care, and heating? Very hard 10/08/2023 [facility] [place] of Occupat ional Health - Occupational Stress [...] time in the past 12 m [facility], were you homeless or living in [...] on filedocumented in this encounter Care Teams Police Department Secretary Relationship Specialty Start Date End Date Hiren Horton MD PCP - General Family Medicine 07/26/23 10/13/24 Domi Altamirano NP [address] [place] [address] [facility] 08/24/24 Unallocated, Noms Provider, [place] [address] PCP - General Family Medicine 10/14/24 Domi Altamirano NP Nurse Practitioner Family Medicine 03/26/22 10/13/24 Domi Altamirano NP Nurse Practitioner Family Medicine 07/26/23 10/13/24 documented as of this encounter
--- OUTSIDE RECORDS SUMMARY | 2024-11-26 08:32 | XMS_ITS | Clinical Summary ---
Author Organization [facility] Address [id number] [place] [address] Care Team Providers Care Experience Planning Strategist Name Role Phone No Pcp, No Pcp [...] specimen type ThinPrep 10/04/2023 4:33 AM EDT [facility] Hpv 16 Negative Negative^N egative 10/04/2023 1:07 PM EDT [facility] Hpv 18 Negative Negative^N egative 10/04/2023 1:07 PM EDT [facility] Other high risk hpv Negative Negative^N egative 10/04/2023 1:07 PM EDT [facility] Comment: HPV types 31,33,35,39,45,52,56,58,59,66 and 68 DNA were undetectable. THINP 10/03/2023 4:33 AM EDT 10/03/2023 4:38 AM EDT us Domi Ledezma THIRD RAIL INSTALLER-ROLLER MACHINE OPERATOR LAB BLOOD ORDERABLES Fin al Result [facility] [address] [facility], [place] [address] [facility] [address] [facility] [place] [address] from Last 3 Months or Most Recently Relevant to Health Maintenance Insurance [facility] MEDICAID Care Teams Experience Planning Strategist Relationship Specialty Start Date End Date No Pcp, [place] [address] PCP - General Family Medicine 05/16/17
[2024-11-26 08:37] LABS: Hemoglobin 7.0 g/dL (12.0-16.0); Mean Corpuscular HGB Conc 30.8 g/dL (29.9-35.2); Mean Corpuscular Hemoglobin 28.6 pg (26.7-34.0); Mean Corpuscular Volume 92.7 fL (81.0-99.0); Platelet Count 986 10^3/uL (150-450); Red Blood Count 2.45 10^6/uL (4.20-5.40); White Blood Count 25.4 10^3/uL (4.0-11.0)
[2024-11-26 08:48] LABS: Hematocrit 22.7 % (36.0-48.0)
[2024-11-26] MEDS: KETOROLAC TROMETHAMINE 30 MG/ML VIAL IVP ×2 (08:48→15:05)
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
[2024-11-26] MEDS: 0.9 % SODIUM CHLORIDE 1,000 ML 1000 ML IV ×2 (09:00→13:13)
[2024-11-26 09:02] LABS: Alanine Aminotransferase 20 U/L (14-59); Albumin Globulin Ratio 0.2; Albumin Level 1.1 g/dL (3.4-5.0); Alkaline Phosphatase 569 U/L (46-116); Anion Gap 17.2; Aspartate Amino Transferase 22 U/L (15-37); Blood Urea Nitrogen 15.0 mg/dL (7.0-18.0); Calcium 9.5 mg/dL (8.5-10.1); Carbon Dioxide 24.3 mmol/L (21.0-32.0); Chloride 97 mmol/L (98-107); Estimated GFR (African America >60 (>=60 mL/min/1.73m^2); Estimated GFR (Non-African Ame >60 (>=60 mL/min/1.73m^2); Globulin 6.4 g/dL; Glucose 144 mg/dL (74-106); Magnesium 1.6 mg/dL (1.8-2.4); Potassium 3.5 mmol/L (3.5-5.1); Sodium 135 mmol/L (136-145); Total Protein 7.5 g/dL (6.4-8.2); Uric Acid 1.9 mg/dL (2.6-6.0)
[2024-11-26 09:11] LABS: Lactate/Lactic Acid 0.6 mmol/L (0.4-2.0)
[2024-11-26 09:15] LABS: Lipase <10.0 U/L (16.0-77.0)
[2024-11-26 09:23] LABS: Band Neutrophils Absolute 0.3 10^3/uL (0.0-0.3); Basophils Abs Manual 0.00 10^3/uL (0.00-0.10); Basophils Percent Manual 0.0 % (0.2-2.0); Eosinophils Absolute Manual 0.00 10^3/uL (0.00-0.70); Eosinophils Percent Manual 0.0 % (0.9-7.0); Lymphocytes Absolute Manual 2.28 10^3/uL (1.20-3.80); Lymphocytes Percent Manual 9.0 % (20.5-60.0); Monocytes Absolute Manual 1.52 10^3/uL (0.30-0.80); Monocytes Percent Manual 6.0 % (1.7-12.0); Segmented Neut Absolute Manual 21.33 10^3/uL (1.4-6.5); Segmented Neutrophils % Manual 84.0 (43.0-75.0)
[2024-11-26 09:24] LABS: Anisocytosis 1+
[2024-11-26 11:19] LABS: Glucose Urine UA NEGATIVE (NEGATIVE)
[2024-11-26 11:40] LABS: Cast Seen? NONE SEEN #/LPF (NONE SEEN); Crystals Seen? None Seen #/HPF (None Seen)
[2024-11-26 11:41] LABS: Urine Culture Indicated YES-FRMC
[2024-11-26] MEDS: HYDROMORPHONE HCL 0.5 MG/0.5 ML SYRINGE IV (12:42)
[2024-11-26] MEDS: SENNOSIDES/DOCUSATE SODIUM 1 TAB TABLET 2 TAB PO ×2 (14:31→21:22)
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
[2024-11-26] MEDS: GABAPENTIN 300 MG CAPSULE 600 MG PO ×2 (15:05→21:22)
[2024-11-26] MEDS: HYDROMORPHONE HCL 1 MG/ML CARTRIDGE IVP ×2 (17:10→21:22)
[2024-11-26] MEDS: PANTOPRAZOLE SODIUM 40 MG VIAL IV (18:06)
--- NOTE | 2024-11-26 20:12 | PC.NURSE ---
patient complained of tailbone hurting. Applied mepilex for preventative measures. Scarum light pink.
[2024-11-26] MEDS: ATORVASTATIN CALCIUM 20 MG TABLET PO (21:22)
[2024-11-26] MEDS: METOPROLOL TARTRATE 50 MG TABLET PO (21:22)
--- NOTE | 2024-11-26 22:20 | XR_ITS ---
[place] [id number] Patient Name: JAIME BURTON MRN: [id number] date: 1975 Sex: F Assigned Patient Location: [place] Current Patient Location: [place] Accession/Order Number: [id number] Exam Date: 11/26/2024 22:28 Report Date: 11/26/2024 22:54 At the request of: MALIK HERNANDEZ MD Procedure: XR chest 1V Plain film chest Single view HISTORY: Hypoxia COMPARISON: 11/26/2024 FINDINGS: SUPPORT DEVICES: None POSTSURGICAL CHANGES: None HEART: Within normal limits PULMONARY YULISSA: Within normal limits MEDIASTINUM: Unremarkable LUNGS AND PLEURA: Left basilar atelectasis/pneumonitis. Left mid lung nodule redemonstrated. Similar to prior BONY STRUCTURES: Intact ADDITIONAL FINDINGS None XR/XR chest 1V IMPRESSION: Left basilar atelectasis/pneumonitis. Unchanged left midlung nodule. Impression dictated by: Abran Matthews M.D. 11/26/2024 10:54 PM Dictation Location: [employer] Electronically authenticated by: [id number] Y Date: 11/26/2024 22:54
[2024-11-26] MEDS: PIPERACILLIN SODIUM/TAZOBACTAM 3.375 GM in 0.9 % SODIUM CHLORIDE 50 ML IV (23:19)
[2024-11-26] MEDS: FUROSEMIDE 40 MG/4 ML VIAL IVP (23:19)
[2024-11-26 23:41] LABS: NT Pro B Type Natriuretic Pept 7757.0 pg/mL (<=900.0)
[2024-11-27] VITALS (9 sets, daily range): BP systolic 100–112; BP diastolic 62–80; PULSE 110–138; TEMP 36.4–37.6; O2SAT 87–96
[2024-11-27] MEDS: KETOROLAC TROMETHAMINE 30 MG/ML VIAL IVP (01:48)
[2024-11-27 05:55] LABS: Hematocrit 24.2 % (36.0-48.0); Hemoglobin 7.3 g/dL (12.0-16.0); Mean Corpuscular HGB Conc 30.2 g/dL (29.9-35.2); Mean Corpuscular Hemoglobin 28.4 pg (26.7-34.0); Mean Corpuscular Volume 94.2 fL (81.0-99.0); Platelet Count 887 10^3/uL (150-450); Red Blood Count 2.57 10^6/uL (4.20-5.40); White Blood Count 20.2 10^3/uL (4.0-11.0)
[2024-11-27 05:56] LABS: Alanine Aminotransferase 16 U/L (14-59); Albumin Globulin Ratio 0.1; Albumin Level 0.8 g/dL (3.4-5.0); Alkaline Phosphatase 528 U/L (46-116); Anion Gap 17.1; Aspartate Amino Transferase 19 U/L (15-37); Blood Urea Nitrogen 10.0 mg/dL (7.0-18.0); Calcium 9.3 mg/dL (8.5-10.1); Carbon Dioxide 26.7 mmol/L (21.0-32.0); Chloride 101 mmol/L (98-107); Estimated GFR (African America >60 (>=60 mL/min/1.73m^2); Estimated GFR (Non-African Ame >60 (>=60 mL/min/1.73m^2); Globulin 6.0 g/dL; Glucose 102 mg/dL (74-106); Magnesium 1.7 mg/dL (1.8-2.4); Sodium 142 mmol/L (136-145); Total Protein 6.8 g/dL (6.4-8.2)
[2024-11-27 06:02] LABS: Potassium 2.8 mmol/L (3.5-5.1)
[2024-11-27] MEDS: GABAPENTIN 300 MG CAPSULE 600 MG PO ×3 (06:22→21:07)
[2024-11-27] MEDS: PANTOPRAZOLE SODIUM 40 MG TABLET.DR PO (06:22)
[2024-11-27] MEDS: HYDROMORPHONE HCL 1 MG/ML CARTRIDGE IVP ×5 (06:25→23:51)
--- NOTE | 2024-11-27 06:33 | CA_ITS ---
Patient Name: JAIME BURTON MR#: [id number] : 1975 Exam Date: 11/27/2024 Ordering Doctor: MALIK HERNANDEZ ECHOCARDIOGRAM REPORT PROCEDURE: CA ECHO DOPPLER COMPLETE INDICATIONS: CHF COMPARISON: None. DESCRIPTION: COMPLETE ECHOCARDIOGRAM Real-time transthoracic echocardiography with 2D, M-mode, spectral and color flow Doppler performed. QUALITY: Technical quality was good. LEFT VENTRICLE: Normal chamber size. Borderline left ventricular hypertrophy. LV EF: Global left ventricular systolic function is moderately reduced; visually estimated ejection fraction is 30-35%. Diffuse hypokinesis with regional variability. DIASTOLIC: Grade 2 diastolic dysfunction. ATRIAL SEPTUM: Inadequately seen. LEFT ATRIUM: Moderate dilatation. RIGHT ATRIUM: Normal chamber size. RIGHT VENTRICLE: Normal chamber size. Normal right ventricular systolic function. TRICUSPID VALVE: Normal mobility and thickness. No stenosis with trivial regurgitation. Unable to assess right-sided pressures due to lack of measurable tricuspid regurgitation. MITRAL VALVE: Mildly thickened with normal mobility. No evidence of mitral valve stenosis. There is no mitral annular calcification. Moderate mitral regurgitation. AORTIC VALVE: Normal trileaflet appearance. No visible sclerosis. Normal leaflet mobility. No evidence of aortic valve stenosis. No aortic regurgitation. AORTIC ROOT: Normal diameter and appearance. PULMONIC VALVE: Normal thickness and mobility. No stenosis. No regurgitation. PERICARDIUM: No evidence of pericardial effusion. IVC: Collapses with inspiration. Normal size. CONCLUSION: 1. Global left ventricular systolic function is moderately reduced; visually estimated ejection fraction is 30 to 35% 2. Borderline left ventricular hypertrophy 3. Normal right ventricular size and systolic function 4. Grade 2 diastolic dysfunction 5. The left atrium is moderately dilated 6. Moderate mitral regurgitation Adult Echocardiography Procedure Report Left Ventricle LVEDD (3.7 - 5.6 cm): 4.32 cm LVESD (2.2 - 4.0 cm): 3.61 cm LVIVS thickness (0.6 - 1.2 cm): 0.90 cm LVPW thickness (0.5 - 1.0 cm): 1.03 cm e': 0.11 m/s E - e': 8.99 LVOT Max Gradient: 3.59 mm[Hg] LVOT Area (cm2): 0.95 m/s Peak Velocity (LVOT): 0.95 m/s Mean Velocity (LVOT): 0.59 m/s LVOT Diameter 2.03 cm Left Ventricular Ejection Fraction: 42.51 % Left Atrium LA Volume Index (2D A2C): 53.72 ml/m2 Left Atrium Systolic Dimension: 3.67 cm Mitral Valve MV E to A Ratio: 1.22 Mitral Valve A-Wave Peak Velocity: 0.82 m/s Mitral Valve E-Wave Peak Velocity: 1.00 m/s Right Ventricle RV Internal Diastolic Dimension: 3.69 cm Aorta AO Root Diam: 3.13 cm Aortic Valve AoV Area (Peak Yaron): 2.44 cm2, 2.44 cm2 AoV Area (VTI): 2.58 cm2, 2.58 cm2 Peak Velocity(Antegrade Flow): 1.26 m/s Peak Gradient(Antegrade Flow): 6.32 mm[Hg] Mean Velocity(Antegrade Flow): 0.87 m/s Mean Gradient(Antegrade Flow): 3.51 mm[Hg] Velocity Time Integral: 19.21 cm Tricuspid Valve Peak Velocity (Regurgitant Flow): Pulmonic Valve Peak Velocity: 0.73 m/s Peak Gradient: 2.16 mm[Hg], 2.16 mm[Hg] Right Atrium Right Atrium Systolic Pressure: 45.57 ml, 45.57 ml Dictated by: Chiki Lamb M.D. on 11/27/2024 at 10:29 Approved by: Chiki Lamb M.D. on 11/27/2024 at 10:36
[2024-11-27] MEDS: FUROSEMIDE 40 MG TABLET PO (06:52)
[2024-11-27] MEDS: POTASSIUM CHLORIDE 10 MEQ ER TABLET 50 MEQ PO (06:52)
[2024-11-27 06:58] LABS: Basophils Abs Manual 0.00 10^3/uL (0.00-0.10); Eosinophils Absolute Manual 0.00 10^3/uL (0.00-0.70)
[2024-11-27 06:59] LABS: RBC Morphology ABNORMAL
[2024-11-27 07:00] LABS: Hypochromasia 1+; Poikilocytosis 1+
[2024-11-27 07:01] LABS: Ovalocytes 1+; Segmented Neutrophils % Manual 80.0 (43.0-75.0); Stomatocytes 1+
[2024-11-27 07:02] LABS: Band Neutrophils Absolute 0.2 10^3/uL (0.0-0.3); Basophils Percent Manual 0.0 % (0.2-2.0); Eosinophils Percent Manual 0.0 % (0.9-7.0); Lymphocytes Absolute Manual 2.22 10^3/uL (1.20-3.80); Lymphocytes Percent Manual 11.0 % (20.5-60.0); Monocytes Absolute Manual 1.61 10^3/uL (0.30-0.80); Monocytes Percent Manual 8.0 % (1.7-12.0); Segmented Neut Absolute Manual 16.16 10^3/uL (1.4-6.5)
[2024-11-27] MEDS: METOPROLOL TARTRATE 50 MG TABLET 25 MG PO (08:08)
[2024-11-27] MEDS: SENNOSIDES/DOCUSATE SODIUM 1 TAB TABLET 2 TAB PO ×2 (08:08→21:07)
[2024-11-27] MEDS: MAGNESIUM SULFATE IN WATER 2 GM/50 ML PREMIX IV (08:08)
[2024-11-27] MEDS: POTASSIUM CHLORIDE 20 MEQ in 0.9 % SODIUM CHLORIDE 250 ML 130 MEQ IV (08:22)
--- NOTE | 2024-11-27 09:15 | CM.NOTE ---
Rounds made with Dr. Lynn, discussed with pt reason for admission and plan of care. Pt getting cardiac echo this am. Pt will also need line placement for continued treatment, spoke with RN. No discharge today.
[2024-11-27] MEDS: POTASSIUM CHLORIDE 10 MEQ ER TABLET 40 MEQ PO ×2 (10:49→13:22)
[2024-11-27] MEDS: METOPROLOL TARTRATE 25 MG TABLET PO (10:58)
--- NOTE | 2024-11-27 11:44 | ECG_ITS ---
[facility] Test Date: 2024-11-27 Pat Name: JAIME BURTON Department: Room: 2191 Gender: Female [employer] Worker: TEMO: 1975 Requested By: [id number] Order Number: [id number] Reading MD: FRANCHESCA GEIGER Measurements Intervals [place] Rate: 108 P: 36 GA: 120 QRS: 45 QRSD: 79 T: 66 QT: 335 QTc: 451 Interpretive Statements SINUS TACHYCARDIA POSSIBLE LEFT ATRIAL ENLARGEMENT [-0.1mV P WAVE IN V1/V2] ABNORMAL RHYTHM ECG Compared to ECG 10/07/2024 21:52:24 No significant changes Electronically Signed On 11-27-2024 16:05:27 EDT by FRANCHESCA GEIGER
--- NOTE | 2024-11-27 11:58 | PM.PN ---
Progress Note: Subjective Subjective Interval history: Seen and evaluated this morning, she is currently getting echocardiogram ordered. Overnight events were reviewed with the bedside RN, patient was a little hypoxic overnight, the night physician was paged and she received a dose of IV Lasix followed by a second dose of oral Lasix this morning. She denies any history of CHF to me today. She does endorse feeling much better in regards to her back and abdominal discomfort which she presented with yesterday. Exam Narrative Exam Narrative: General: Awake and alert, appears more comfortable today, frail. Decreased muscle mass. HEENT: Normocephalic, atraumatic, no scleral icterus noted, temporal wasting Lungs: Clear to auscultation bilaterally Cardiac: Increased rate, regular rhythm. No murmurs appreciated. GI: Soft, tenderness in her suprapubic region has improved. Extremities: Active and passive range of motion intact throughout, no edema, decreased muscle mass Neuro: Cranial nerves II through XII intact, no focal deficits noted Skin: No rashes or lesions, no signs of jaundice, numerous tattoos Constitutional Vital Signs, click to edit/add: Last Vital Signs Temp 97.5 F L 11/27/24 08:10 Pulse 124 H 11/27/24 08:10 Resp 18 11/27/24 08:10 BP 112/80 11/27/24 08:10 Pulse Ox 95 11/27/24 11:11 O2 Del Method Nasal Cannula 11/27/24 11:11 O2 Flow Rate 2 11/27/24 11:11 Progress Note: Objective Labs Labs: Short CBC 11/27/24 Range/Units 05:07 WBC 20.2 H (4.0-11.0) 10^3/uL Hgb 7.3 L (12.0-16.0) g/dL Hct 24.2 L (36.0-48.0) % Plt Count 887 H (150-450) 10^3/uL BMP 11/27/24 05:07 Sodium 142 Potassium 2.8 L* Chloride 101 Carbon Dioxide 26.7 BUN 10.0 Creatinine 0.54 L Glucose 102 Calcium 9.3 Liver Function 11/27/24 Range/Units 05:07 Total Bilirubin 0.8 (0.2-1.0) mg/dL AST 19 (15-37) U/L ALT 16 (14-59) U/L Alkaline Phosphatase 528 H (46-116) U/L Albumin 0.8 L (3.4-5.0) g/dL Progress Note: A&P Assessment and Plan (1) Pyelonephritis: Assessment and Plan: ? Fluids are discontinued last night secondary to signs and symptoms of CHF with noted hypoxia around 85%. ? Continue ceftriaxone 2 g every 24 hours ? Her urinalysis shows significant infectious burden ? Urine culture pending ? Pain control with Tylenol, Dilaudid, [place], Toradol ? Supportive care with MiraLAX and Senokot ?Blood cultures ordered however she did receive her first dose of antibiotics in emergency room prior to cultures being drawn. (2) New onset of congestive heart failure: Assessment and Plan: ? Had evidence of fluid overload with hypoxia overnight her IV fluids were discontinued ? proBNP elevated at 7000 ? Received Lasix overnight and again this morning ? Echocardiogram reveals global systolic function with EF of 30 to 35% with grade 2 diastolic dysfunction ? EKG shows sinus tachycardia ? Continue home metoprolol ? Her losartan is on hold secondary to sepsis diagnosis and relative hypotension at 112/80 at last check ? She has numerous risk factors, most notably would be her chronic anemia puts appearing her at risk for high-output cardiomyopathy. ? Her severe protein calorie malnutrition leading to cachexia ? Underlying ischemia (3) Hyperphosphatemia: Assessment and Plan: ? Elevated at 6.4 this morning ? Her last phosphorus check in September 2024 was normal at 3.9 ? Her corrected calcium level is 11.86, she has no pre-existing diagnosis of hypercalcemia ? Checking PTH and PTH RP, concern for hyperparathyroidism. ? Vitamin D level is normal (4) Weight loss: Assessment and Plan: ? And in addition to weight loss, it is noted that her albumin was quite low this morning at 0.8 ? It has been historically low since August 2024, prior to that in September 2023 it was normal. ? Ensure protein shakes 3 times daily with each meal ? Encourage oral intake (5) UTI (urinary tract infection): Assessment and Plan: See above (6) Myeloproliferative disease: Assessment and Plan: ? Her hemoglobin actually trended up slightly this morning, she is still within her baseline anemia, see new onset heart failure diagnosis for more details on that discussion (7) Tachycardia: Assessment and Plan: See above, her metoprolol was continued at 50 mg twice daily. Cardiology is on consult. (8) Sepsis: Assessment and Plan: See above (9) Hypercalcemia: Assessment and Plan: ? See above (10) Hypoalbuminemia: Assessment and Plan: See above Plan ? DVT prophylaxis addressed ? Regular diet ? Full code
[2024-11-27] MEDS: ENSURE HP 237 ML LIQUID PO (13:36)
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
[2024-11-27] MEDS: POLYETHYLENE GLYCOL 3350 17 GM POWDER PACKET PO (19:13)
[2024-11-27] MEDS: METOPROLOL TARTRATE 50 MG TABLET PO (21:07)
[2024-11-28] VITALS (11 sets, daily range): BP systolic 93–106; BP diastolic 64–73; PULSE 118–135; TEMP 36.5–37.6; O2SAT 92–97
[2024-11-28] MEDS: HYDROMORPHONE HCL 1 MG/ML CARTRIDGE IVP ×3 (04:00→12:08)
[2024-11-28 05:39] LABS: Mean Corpuscular HGB Conc 30.0 g/dL (29.9-35.2); Mean Corpuscular Hemoglobin 28.6 pg (26.7-34.0); Mean Corpuscular Volume 95.1 fL (81.0-99.0); Platelet Count 928 10^3/uL (150-450); Red Blood Count 2.24 10^6/uL (4.20-5.40); White Blood Count 20.6 10^3/uL (4.0-11.0)
[2024-11-28] MEDS: GABAPENTIN 300 MG CAPSULE 600 MG PO (05:43)
[2024-11-28] MEDS: PANTOPRAZOLE SODIUM 40 MG TABLET.DR PO (05:43)
[2024-11-28 05:45] LABS: Hematocrit 21.3 % (36.0-48.0); Hemoglobin 6.4 g/dL (12.0-16.0)
[2024-11-28 05:48] LABS: Alanine Aminotransferase 20 U/L (14-59); Albumin Globulin Ratio 0.1; Albumin Level 0.8 g/dL (3.4-5.0); Alkaline Phosphatase 516 U/L (46-116); Anion Gap 14.5; Aspartate Amino Transferase 22 U/L (15-37); Blood Urea Nitrogen 14.0 mg/dL (7.0-18.0); Calcium 8.5 mg/dL (8.5-10.1); Carbon Dioxide 25.4 mmol/L (21.0-32.0); Chloride 99 mmol/L (98-107); Estimated GFR (African America >60 (>=60 mL/min/1.73m^2); Estimated GFR (Non-African Ame >60 (>=60 mL/min/1.73m^2); Globulin 5.6 g/dL; Glucose 108 mg/dL (74-106); Magnesium 1.8 mg/dL (1.8-2.4); Potassium 3.9 mmol/L (3.5-5.1); Sodium 135 mmol/L (136-145); Total Protein 6.4 g/dL (6.4-8.2)
[2024-11-28] MEDS: SENNOSIDES/DOCUSATE SODIUM 1 TAB TABLET 2 TAB PO (08:29)
[2024-11-28] MEDS: METOPROLOL TARTRATE 50 MG TABLET PO (08:41)
--- NOTE | 2024-11-28 09:15 | CM.NOTE ---
Rounds made with Dr. Lynn, pt will discharge home today after blood transfusion. Pt refuses transfer to [facility] for oncology and also refused transfer to [facility] for cardiology. Pt will have f/u appointments scheduled for oncology, PCP and Cardiology at discharge.
--- NOTE | 2024-11-28 11:22 | CM.NOTE ---
Pt requesting all her records to take to her f/u appointments. Called and spoke with Health Information Management, someone will come up and have pt sign release form and then deliver records to room. Discussed with pt all her f/u appointments and importance of going to all appointments. Dr. Lynn spoke with Dr. Boyce (pt's oncologist) regarding plan of care. Dr. Boyce at pt's f/u appointment will connect her with [facility] oncologist for further treatment. Pt wanted CM to update Dr. Swenson. CM updated Dr. Swenson and pt will see Dr. Swenson in office on 12/01.
--- NOTE | 2024-11-28 11:34 | P.DS_ITS ---
DS: Providers Provider Date of admission: 11/26/24 13:18 Primary care physician: Nakul Swenson MD Consults: 11/26/24 Consult to Dietitian Routine Reason for consultation: Weight loss 11/27/24 10:50 Consult to Cardiology Routine Reason for consultation: new CHF DS: Diagnosis Discharge Diagnosis (1) Pyelonephritis: (2) New onset of congestive heart failure: (3) Hyperphosphatemia: (4) Weight loss: (5) UTI (urinary tract infection): (6) Myeloproliferative disease: (7) Tachycardia: (8) Sepsis: (9) Hypercalcemia: (10) Hypoalbuminemia: DS: Summary Hospital Course Hospital Course: Miss Merrill is a 49-year-old female who was admitted to the hospital the [facility] of November 26 with a chief complaint of left flank pain and dysuria/increased urinary frequency. She has a very complicated history of a myeloproliferative disorder which her oncologist has been attempting to get her to [facility] for however they have been unsuccessful doing so thus far. She was admitted to the hospital for pyelonephritis and sepsis, she was tachycardic With a low temperature on admission of 96.9. Meeting sepsis criteria guidelines. She was treated per sepsis protocol and started on ceftriaxone 2 g every 24 hours. Her back and flank pain did improve throughout her hospitalization, her urinalysis was very consistent with a rampant infection with nitrites, ketones, occult blood, WBC and large amount of bacteria. Her urine culture grew Klebsiella which was pansensitive thankfully. She was anemic on admission however she was very close to her baseline and not below 7 so transfusion was withheld. After she received IV fluids per sepsis protocol, she did her come short of breath and wheezy with inhalation, she received 1 dose of IV Lasix followed by 1 dose oral Lasix this did correct her volume status well. Echocardiogram was performed and showed new onset systolic heart failure with ejection fraction of 30 to 35%. She was seen on cardiology consultation, her troponins were negative and EKG was consistent with sinus tachycardia. Cardiology recommended transferring to tertiary care facility for complete workup to rule out ischemic causes primarily given there is some calcified coronary arteries mentioned on the CT scan of her chest. Patient refused transfer for cardiac reasons as she does not necessarily want to go to [place] for her care. Given she has no active chest pain and no EKG abnormalities other than sinus tachycardia, I do feel that she is okay to have an outpatient workup for her heart/new diagnosis of CHF though I did caution her that it was on the urgent side and she should be sure to follow-up with this. Her PCP was also notified. She received 1 unit of PRBC the morning of discharge and November 28 as her hemoglobin drop below 7.0 and she was 6.4. I did touch base with her primary oncologist Dr. Weathers who did agree with transfusing, he was also advising me to attempt transfer to [facility] for further follow-up with hematology there however, patient was refusing transfer for this as well. From a pyelonephritis side, she was improving, her white cell count improved, she was afebrile/normal thermic for more than 24 hours, her blood cultures remained negative as of the writing this note. I did feel comfortable discharging her on antibiotics Augmentin for another 5 days to complete treatment course. She will receive a prescription for metoprolol 100 mg daily, Farxiga 10 mg daily and instructions to continue her losartan for her GDMT. Pending her blood pressure, adding Aldactone should be done in a fairly urgent matter in the outpatient setting. She does have follow-up with your PCP Dr. Swenson who was notified of the need for cardiology and hematology follow-up. Her corrected calcium was remaining elevated throughout her admission, her phosphorus did improve thankfully. Her PTH was checked and was appropriately low, her calcium issue does not stem from her parathyroid gland, PTH related peptide is currently pending. Her vitamin D levels was normal. I do have a feeling that her hypercalcemia is secondary to malignant process as well. She is at high risk for readmission. If she comes back to the emergency room at [facility], if there is anything regarding her heart or cancer (anemia or thrombocytopenia) she should be urgently transferred to a tertiary care center. Time Spent with Patient Time attestation: Total time spent providing and/or coordinating discharge services: Exam Narrative Exam Narrative: General: Awake and alert, appears more comfortable today, frail. Decreased muscle mass. HEENT: Normocephalic, atraumatic, no scleral icterus noted, temporal wasting Lungs: Clear to auscultation bilaterally Cardiac: Increased rate, regular rhythm. No murmurs appreciated. GI: Soft, tenderness in her suprapubic region has improved. Extremities: Active and passive range of motion intact throughout, no edema, decreased muscle mass Neuro: Cranial nerves II through XII intact, no focal deficits noted Skin: No rashes or lesions, no signs of jaundice, numerous tattoos Constitutional Vital Signs, click to edit/add: Last Vital Signs Temp 98.1 F 11/28/24 10:36 Pulse 118 H 11/28/24 10:36 Resp 18 11/28/24 10:36 BP 95/64 11/28/24 10:36 Pulse Ox 95 11/28/24 10:36 O2 Del Method Room Air 11/28/24 10:36 O2 Flow Rate 2 11/28/24 04:00 DS: Data Data Completed and Pending Labs on day of discharge: Labs from last 24 hours 11/28/24 11/27/24 11/27/24 05:03 11:20 05:07 WBC 20.6 H RBC 2.24 L Hgb 6.4 L* Hct 21.3 L* MCV 95.1 MCH 28.6 MCHC 30.0 RDW 20.5 H Plt Count 928 H MPV 9.4 L Sodium 135 L Potassium 3.9 Chloride 99 Carbon Dioxide 25.4 Anion Gap 14.5 BUN 14.0 Creatinine 0.56 Est GFR ( Amer) >60 Est GFR (Non-Af Amer) >60 BUN/Creatinine Ratio 25.0 Glucose 108 H Calcium 8.5 Phosphorus 4.3 Magnesium 1.8 Total Bilirubin 0.8 AST 22 ALT 20 Alkaline Phosphatase 516 H Total Protein 6.4 Albumin 0.8 L Globulin 5.6 Albumin/Globulin Ratio 0.1 Vitamin D Level 48.0 PTH Intact 11 L Blood Type Antibody Screen Crossmatch 11/26/24 08:45 WBC RBC Hgb Hct MCV MCH MCHC RDW Plt Count MPV Sodium Potassium Chloride Carbon Dioxide Anion Gap BUN Creatinine Est GFR ( Amer) Est GFR (Non-Af Amer) BUN/Creatinine Ratio Glucose Calcium Phosphorus Magnesium Total Bilirubin AST ALT Alkaline Phosphatase Total Protein Albumin Globulin Albumin/Globulin Ratio Vitamin D Level PTH Intact Blood Type O Positive Antibody Screen Negative Crossmatch See Detail Discharge Plan Discharge Disposition: Home, Self-Care Condition: Fair Discharge Medications: New polyethylene glycol 3350 17 gram Powder In Packet 17 g PO QD 30 Days Qty: 30 0RF amoxicillin-pot clavulanate [Augmentin] 500-125 mg tablet 1 tab PO BID Qty: 10 0RF metoprolol succinate 100 mg capsule,sprinkle,ER 24hr 100 mg PO DAILY Qty: 30 2RF dapagliflozin propanediol [Farxiga] 10 mg tablet 10 mg PO DAILY Qty: 30 2RF Continued albuterol sulfate 90 mcg/actuation HFA aerosol inhaler 2 puff INHALATION Q6H PRN (Reason: shortness of breath or wheezing) losartan 50 mg tablet 50 mg PO DAILY metoprolol tartrate 50 mg tablet 50 mg PO BID gabapentin 600 mg tablet 600 mg PO Q8H Qty: 90 2RF oxycodone 5 mg tablet 5 mg PO Q6H PRN (Reason: pain) acetaminophen 500 mg tablet 1,000 mg PO Q6H promethazine 25 mg tablet 25 mg PO TID PRN (Reason: nausea and vomiting) potassium chloride 20 mEq tablet extended release 20 meq PO TID Rx Instructions: WITH FOOD Print Language: Ukrainian Forms: Portal Instructions Follow Up Appointments: Dr. Swenson 12/01 @ 10am [phone] Dr Weathers, Oncology December 04 at 9:30am [phone] Lora Douglas, Palliative Care December 04 at 10:30am [phone] [place] Cardiology at [facility] 12/18 @ 1:40pm with Dr. Hoskins [phone]
--- NOTE | 2024-12-01 12:08 | CM.DCFOLLOWU ---
Person spoke with:patient How are you feeling? Doing alright, she had follow up with Dr. Swenson today, took her off one of the new medications and is looking in to getting her to [place] to have heart cath How is your pain?none Did you understand your discharge instructions?yes Do you have any questions about your discharge instructions?no Were you given any prescriptions at discharge?yes Were you able to get your prescriptions filled?yes Do you understand how to take your medications as ordered?yes Do you have any questions about your follow up appointment and do you plan to keep your follow up appointment? no questions, follow up appointments were reviewed Is there anything else that you would like to discuss? no Questions/Comments/Concerns/Other:none
== END 2024-11-28 13:34 | disposition home or self-care (01) | DRG 871 ==
LOC: ER 12:26 → MS 13:22
PROVIDERS: Internal Medicine; Admitting Provider Internal Medicine; Emergency Provider Student in an Organized Health Care Education/Training Program; PCP Family Medicine; Visit Provider Internal Medicine
DX: A41.59 Other Gram-negative sepsis (principal); E43 Unspecified severe protein-calorie malnutrition; I50.21 Acute systolic (congestive) heart failure; N12 Tubulo-interstitial nephritis, not specified as acute or chronic; D47.1 Chronic myeloproliferative disease; N39.0 Urinary tract infection, site not specified; R64 Cachexia; Z68.1 Body mass index [BMI] 19.9 or less, adult; M54.6 Pain in thoracic spine; Z92.21 Personal history of antineoplastic chemotherapy; Z79.899 Other long term (current) drug therapy; R16.0 Hepatomegaly, not elsewhere classified; K21.9 Gastro-esophageal reflux disease without esophagitis; E78.00 Pure hypercholesterolemia, unspecified; J44.9 Chronic obstructive pulmonary disease, unspecified; E11.9 Type 2 diabetes mellitus without complications; M79.7 Fibromyalgia; Z90.49 Acquired absence of other specified parts of digestive tract; R00.0 Tachycardia, unspecified; R09.02 Hypoxemia; E83.39 Other disorders of phosphorus metabolism; E83.52 Hypercalcemia; E88.09 Other disorders of plasma-protein metabolism, not elsewhere classified; I11.0 Hypertensive heart disease with heart failure; F17.210 Nicotine dependence, cigarettes, uncomplicated
CPT/HCPCS: 36410; 36415; 36430; 71045; 71260; 74178; 80048; 80053; 81001; 82306; 82397; 83605; 83615; 83690; 83735; 83880; 83970; 84100; 84550; 85007; 85027; 86850; 86900; 86901; 87040; 87086; 87088; 87186; 93005; 93306; 93356; 94761; 96365; 96375; 96376; 99285; 99406; J0696; J1171; J1885; J1938; J2405; J2543; J3475; J3480; P9016; Q9967

== ENCOUNTER 2024-12-04 12:20 | Outpatient (OUT) | payer BC, SELFPAY ==
--- OUTSIDE RECORDS SUMMARY | 2024-08-15 03:51 | XMS_ITS | Continuity of Care Document ---
Author Organization 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 Name Role Phone Dylan Vincent DDS Unavailable [...] 1st Film Nutrit Couns For Control Of [place] Dis July Comp Oral Eval New/estab Patient 2024 Comp Oral Eval New/estab Patient 2024 Extract; Erupted Th/exposted Rt 025 Oral Hygiene Instruction Intraoral-periapical 1st Film Bitewig-single Film Limited Oral Eval Oral Hygiene Instruction COVID-19 Antigen Test Nutrit Couns For Control Of [place] Dis Apr Post Op Visit Dental Post [...] 3s; Posterior Nutrit Couns For Control Of [place] Dis Mar Resin Composite 4+s; Posterior Oral [...] Diagnoses Date Provider Providers Copied on Encounter [facility], [address], [place], [id number], [place] tel:[phone] [facility] Dental Clinic dn (chief complaint) Encounter for screening for dental disorders 5 Vincent DDS Yixue. [address] [place], [address], [place]. tel:[phone] [facility], [address] [place] [address], [id number], [place] tel:[phone] [facility] Dental Clinic ext (chief complaint) Encounter for screening for dental disorders 5 Vincent DDS Yixue. [address] [place] [address], [address], [place]. tel:[phone] [facility], [address] [place] [address], [id number], [place] tel:[phone] [facility] Dental Clinic er (chief complaint) Encounter for screening for dental disorders 5 Vincent DDS Yixue. [address] [place] [address], [address], [place]. tel:[phone] [facility], [address] [place] [address], [id number], [place] tel:[phone] Dental Clinic POV (chief complaint) Encounter for screening for COVID-19Encounter for screening for dental disorders 2 José Luis Ayoub. [address] [place] [address], [address], [place]. tel:[phone] [facility], [address] [place] [address], [id number], [place] tel:[phone] Dental Clinic No Information 2 Ruddy Delgado. [address] [place] [address], [id number] , [place]. tel:[phone] [facility], [address] [place] [address], [id number], [place] tel:[phone] [facility] No Information 2 Kervin Adkins. [address], [place], [id number] , [place]. tel:[phone] [facility], [address], [place], [id number], [place] tel:[phone] Dental Clinic Dental Limited (chief complaint) Encounter for screening for dental disorders 2 Ruddy Delgado. [address], [place], [id number] , [place]. tel:[phone] [facility], [address], [place], [id number], [place] tel:[phone] Dental Clinic Fill (chief complaint) Encounter for screening for dental disorders 2 Ruddy Delgado. [address], [place], [id number] , [place]. tel: [phone] [facility], [address], [place], [id number], [place] tel:[phone] Dental Clinic Fillings (chief complaint) Encounter for screening for dental disorders 2 Ruddy Delgado. [address], [place], [id number] , [place]. tel:[phone] [facility], [address], [place], [id number], [place] tel:[phone] Dental Clinic Fill (chief complaint) Encounter for screening for dental disorders 2 Ruddy Delgado. [address], [place], [id number] , [place]. tel:+ [phone] [facility], [address], [place], [id number], [place] tel:[phone] Dental Clinic filling (chief complaint) Encounter for screening for dental disorders 2 José Luis Ayoub. [address] [place], [address], [place]. tel:[phone] [facility], [address], [place], [id number], [place] tel:[phone] Dental Clinic Filling (chief complaint) Encounter for screening for dental disorders 2 Ordonez DDS Mega. [address] [place], [address], [place]. tel: [phone] [facility], [address], [place], [id number], [place] tel:[phone] Dental Clinic DL (chief complaint) Encounter for screening for dental disorders 2 Ordonez DDS Mega. [address] [place], [address], [place]. tel: [phone] [facility], [address] [place] [address], [id number], [place] tel:[phone] Dental Clinic dental new (chief complaint) Encounter for screening for dental disorders 9 Domarkos DDS Alfredojulianek. [address], [place], [id number] , [place]. tel: [phone] [facility], [address] [place] [address], [id number], [place] tel:[phone] [facility] Detox Encounter for test, result negativeAlcohol dependence with withdrawal, unspecifiedAnxiety disorder, unspecifiedCough Mar-0 8-201 8 [place] Zachary. [address] [place], [address], [place]. tel: [phone] [facility], [address] [place] [address], [id number], [place] tel:[phone] [facility] Detox [place]: (chief complaint) Encounter for test, result negativeAlcohol dependence with withdrawal, unspecifiedAnxiety disorder, unspecifiedCough Mar-0 7-201 8 [place] Zachary. [address] [place], [address], [place]. tel: [phone] [facility], [address] [place] [address], [id number], [place] tel:[phone] [facility] Detox Encounter for test, result negativeAlcohol dependence with withdrawal, unspecifiedAnxiety disorder, unspecified Mar-0 6-201 8 [place] Sharma. [address] [place], [address], [place]. tel:[phone] [facility], [address] [place] [address], [id number], [place] tel:[phone] [facility] Detox Encounter for test, result negativeAlcohol dependence with withdrawal, unspecifiedAnxiety disorder, unspecified Mar-0 6-201 8 [place] Sharma. [address] [place], [address], [place]. tel:[phone] [facility], [address] [place] [address], [id number], [place] tel:[phone] [facility] Detox [place]: (chief complaint) Encounter for test, result negativeAlcohol dependence with withdrawal, unspecifiedAnxiety disorder, unspecified Mar-0 5-201 8 [place] Sharma. [address] [place], [address], [place]. tel:[phone] Family History Family Member Type Diagnosis Age [...] type Covered republican ID Sarah monroe(s) [facility] 17 [id number] Social History Type Description Quantity Date Captured [...] Of Treatment Date Type Action Status Goal Depression screening. Due on due Goal Lipid panel. Due on due Goal PRAPARE ASSESSMENT. Due on due Goal Tdap Vaccine. Due on 2024 due Goal Hepatitis C screening. Due o n due Goal Unhealthy drug use screening . Due on due Goal HPV. Due on due Goal Tdap. Due on due Goal Influenza vaccine. Due on due Goal PRAPARE ASSESSMENT. Due on due Goal Hepatitis C screening. Due o n due Goal Depression screening. Due on due Goal Unhealthy drug use screening . Due on due Goal Tdap Vaccine. Due on 2024 due Goal HPV. Due on due Goal Tdap. Due on due Goal Lipid panel. Due on due Goal Influenza vaccine. Due on due Goal Hepatitis C screening. Due o n due Goal Unhealthy drug use screening . Due on due Goal HPV. Due on due Goal Tdap. Due on [...] tr eatment DL DL dental new dental [facility] [place]: Doing better now than when last seen. Coughing 5 or 6 days. Bringing up green and dark sputum. Has used a Ventolin inhaler in the past. [place]: I have anxiety and I know I'm [...] she is getting some counselling through her back panel padder. Functional Status Date Functional Assessmen t No Information Instructions Date Instruction Additional Infor mation No Information Assessments Type Assessment Date No Information Patient Care Teams Name Effective Dates (start - stop) Status Members No Information
--- OUTSIDE RECORDS SUMMARY | 2024-11-28 06:18 | XMS_ITS ---
Author Organization [facility] in [place] Address [address] [place] [address] Care Team Providers Care Supervisor Front Name Role Phone Mansoor Swenson Primary Care Provider [phone] REASON FOR VISIT TCM - CALL SUNDAY (Attempted X 1) Encounters Encounter Location Date Provider Diagnosis [facility] [address] [place] [address] 11/28/2024 Mansoor Swenson Plan Of Treatment No Information Progress Notes * Rylee MERRILL KDOB:[birth year] (49 yo F)Acc No.[id number]:11/28/2024 Patient: Olaf GOODWINDEJAN Rylee Sinclair :1975 A ge:49 Y S ex:Female Address:[facility] [address], [address] * true * Date: Generated for Colby woods/Titi/eTransmitting on: 0 12/04/2024 12:26 PM EDT
--- OUTSIDE RECORDS SUMMARY | 2024-11-28 09:05 | XMS_ITS ---
Author Organization [facility] in [place] Address [address] [place] [address] Care Team Providers Care Sleep Lab Technician Name Role Phone Mansoor Swenson Primary Care Provider REASON FOR VISIT clarify atb Encounters Encounter Location Date Provider Diagnosis [facility] [address] [place] [address] 11/28/2024 Mansoor Swenson Plan Of Treatment No Information Progress Notes * Rylee MERRILL KDOB:[birth year] (49 yo F)Acc No.[id number]:11/28/2024 Patient: Olaf Rylee HERNANDEZ :1975 A ge:49 Y S ex:Female Address:[facility] [address] [facility] [address] [place] [address], [address] * true * Date: Generated for Colby woods/Titi/eTransmitting on: 0 12/04/2024 12:26 PM EDT
--- OUTSIDE RECORDS SUMMARY | 2024-12-01 06:00 | XMS_ITS ---
Author Organization [facility] in [place] Address [address] [place] [address] Care Team Providers Care Tobacco Stripper Name Role Phone Mansoor Swenson Primary Care Provider Allergies Allergen (clinical drug ingredient) Drug/Non Drug Allergy documented on EMR Reaction Allergy Type Onset Date Status prednisone predniSONE Insides Feel Like On Fire Drug Allergy Active REASON FOR VISIT Presents to office with best friend for TCM TBH d/c 11/28 abd pain Medications Medication SIG (Take, Route, Frequency, Duration) Notes Start Date End Date Status Hydroxyurea 500 MG 1 capsule Orally Once a day Unknown Gabapentin 600 MG TAKE 1/2 TABLET BY MOUTH EVERY 8 HOURS Oral for 30 days Active Indomethacin 50 MG 1 capsule with food or milk Orally Twice a day for 10 days 10/03/2024 Unknown oxyCODONE HCl 5 MG 1 tablet as needed Orally every 6 hrs for 30 days M54.9 Active Losartan Potassium 50 MG 1 tablet Orally Once a day for 90 days Active Omeprazole 40 MG 1 tablet Oral Twice Daily for 90 days Active Potassium Chloride ER 20 MEQ 1 tablet with food Orally Once a day for 90 days Active Promethazine HCl 12.5 MG 1 tablet as needed Orally every 6 hrs Active Propranolol HCl 20 MG 1 tablet Orally Twice a day Active Glucerna Shake - Drink 237ml Orally three times daily DXE43 for 30 days 90 Bottles for 30 days- needs 21,330 ml for one month 11/18/2024 Active Albuterol Sulfate HFA 108 (90 Base) MCG/ACT INHALE 2 PUFFS EVERY 6 HOURS IF NEEDED FOR WHEEZING OR SHORTNESS OF BREATH. Inhalation for 90 Days Active Social History Tobacco [...] Problem Status W/U Status Risk Notes Problem Back pain (585271805) Back pain (M54.9) Active confirmed Vital Signs Blood pressure systolic 98 mm Hg 12/02/19 25 Blood pressure diastolic 60 mm Hg 025 Height 66 in 12/01/2024 Weight 97.2 lbs 12/01/2024 BMI 15.69 kg/m2 12/01/2024 Encounters Encounter Location Date Provider Diagnosis [facility] [address] [place] [address] 12/01/2024 Mansoor Hoy Hypertension I10 ; C OPD (chronic obstructive pulmonary disease) J44.9 ; Thrombocythemia D47.3 ; Acute anemia D64.9 and Back pain M54.9 Assessments Encounter Date Diagnosis (ICD Code) Assessment Notes Treatment Notes Treatment Clinical Notes Section Notes 12/01/2024 Hypertension (ICD-10 - I10) 12/01/2024 COPD (chronic obstructive pulmonary disease) (ICD-10 - J44.9) 12/01/2024 Thrombocythemia (ICD-10 - D47.3) 12/01/2024 Acute anemia (ICD-10 - D64.9) 12/01/2024 Back pain (ICD-10 - M54.9) Plan Of Treatment Medication Medication Name Sig Start Date Stop Date Notes Gabapentin 600 MG TAKE 1/2 TABLET BY M OUTH EVERY 8 HOURS Oral for 30 days oxyCODONE HCl 5 MG 1 tablet as needed O rally every 6 hrs for 30 days Pending Test Test Name Order Date CBC AUTO DIFF 12/01/2024 PROF 14(COMP METB) 12/01/2024 Progress Notes * Rylee MERRILL KDOB:[birth year] (49 yo F)Acc No.[id number]:12/01/2024 Progress Note Patient: Olaf Rylee HERNANDEZ Provider: Randal Swenson ([facility])MD :1975 A ge:49 Y S ex:Female Date:12/01/2024 Address:[facility] [address], [place], [place], [place] Check In:09:53 AM ESTCheck O ut:11:11 AM EST Subjective: * Chief Complaints: * P resents to office with best friend for TCM TBH d/c 11/28 abd pain * ROS: E ENT: hearing changes d [...] * Active Problem List I10 Hypertension Modified On:10/01/2024 Status:confirmed J45.909 Asthma Modified On:10/01/2024 Status:confirmed J44.9 COPD (chronic obstru ctive pulmonary disease) Modified On:10/01/2024 Status:confirmed E78.00 Hypercholesteremia Modified On:10/01/2024 Status:confirmed A37.90 Pertussis Modified On:09/23/2024 Status:confirmed D64.9 Acute anemia Modified On:09/25/2024 Status:confirmed D47.3 Thrombocythemia Modified On:10/01/2024 Status:confirmed D47.1 Myeloproliferative d isorder Modified On:10/20/2024U Status:confirmed E43 Severe malnutrition Modified On:11/18/2024 Status:confirmed M54.9 Back pain Modified On:12/01/2024U Status:confirmed I50.9 CHF (congestive hear t failure) Modified On:12/01/2024 Status:confirmed * Medical History: * Surgical History: C lavical Tubal Gall Bladder Removal Appendectomy Exploratory Bone Marrow Biopsy * Hospitalization/Major Diagno stic Procedure: A nemia, Weakness 08/2024[place]/ Myeloproliferative Neoplasms bd pain 12/18 * Family History: F ather: . M [...] FOR WHEEZING OR SHORTNESS OF BREATH. Inhalation Gabapentin 600 MG Tablet TAKE 1 TABLET BY MOUTH EVERY 8 HOURS Oral Glucerna Shake(Nutritional Supplements) - Liquid Drink 237ml Orally three times daily DXE43 , Notes to Pharmacist: 90 Bottles for 30 days- needs 21,330 ml for one monthLosartan Potassium 50 MG Tablet 1 tablet Orally Once a day Omeprazole 40 MG Capsule Delayed Release 1 tablet Oral Twice Daily oxyCODONE HCl 5 MG Tablet 1 tablet as needed Orally every 6 hrs Potassium Chloride ER 20 MEQ Tablet Extended Release 1 tablet with food Orally Once a day Promethazine HCl 12.5 MG Tablet 1 tablet as needed Orally every 6 hrs Propranolol HCl 20 MG Tablet 1 tablet Orally Twice a day Taking Albuterol Sulfate HFA 108 (90 Base) MCG/ACT Aerosol Solution INHALE 2 PUFFS EVERY 6 HOURS IF NEEDED FOR WHEEZING OR SHORTNESS OF BREATH. Inhalation Taking Gabapentin 600 MG Tablet TAKE 1 TABLET BY MOUTH EVERY 8 HOURS Oral Taking Glucerna Shake(Nutritional Supplements) - Liquid Drink 237ml Orally three times daily DXE43 , Notes to Pharmacist: 90 Bottles for 30 days- needs 21,330 ml for one monthTaking Losartan Potassium 50 MG Tablet 1 tablet Orally Once a day Taking Omeprazole 40 MG Capsule Delayed Release 1 tablet Oral Twice Daily Taking oxyCODONE HCl 5 MG Tablet 1 tablet as needed Orally every 6 hrs Taking Potassium Chloride ER 20 MEQ Tablet Extended Release 1 tablet with food Orally Once a day Taking Promethazine HCl 12.5 MG Tablet 1 tablet as needed Orally every 6 hrs Taking Propranolol HCl 20 MG Tablet 1 tablet Orally Twice a day DiscontinuedAtorvastatin Calcium 20 MG Tablet TAKE 1 TABLET BY MOUTH AT BEDTIME Oral Budesonide-Formoterol Fumarate 80-4.5 MCG/ACT Aerosol as directed Inhalation Farxiga(Dapagliflozin Propanediol) 10 MG Tablet 1 tablet Orally Once a day Metoprolol Tartrate 50 MG Tablet 1 tablet with food Orally Twice a day Ondansetron 4 MG Tablet Disintegrating 1 tablet on the tongue and allow to dissolve Orally qid Stiolto Respimat(Tiotropium Rociada-Olodaterol) 2.5-2.5 MCG/ACT Aerosol Solution 2 puffs Inhalation Once a day traMADol HCl 50 MG Tablet 1 tablet as needed Orally qid As neededDiscontinued Atorvastatin Calcium 20 MG Tablet TAKE 1 TABLET BY MOUTH AT BEDTIME Oral Discontinued Budesonide-Formoterol Fumarate 80-4.5 MCG/ACT Aerosol as directed Inhalation Discontinued Farxiga(Dapagliflozin Propanediol) 10 MG Tablet 1 tablet Orally Once a day Discontinued Metoprolol Tartrate 50 MG Tablet 1 tablet with food Orally Twice a day Discontinued Ondansetron 4 MG Tablet Disintegrating 1 tablet on the tongue and allow to dissolve Orally qid Discontinued Stiolto Respimat(Tiotropium Rociada-Olodaterol) 2.5-2.5 MCG/ACT Aerosol Solution 2 puffs Inhalation Once a day Discontinued traMADol HCl 50 MG Tablet 1 tablet as needed Orally qid As neededUnknownHydroxyurea 500 MG Capsule 1 capsule Orally Once a day Indomethacin 50 MG Capsule 1 capsule with food or milk Orally Twice a day Medication List reviewed and reconciled with the patientUnknown Hydroxyurea 500 MG Capsule 1 capsule Orally Once a day Unknown Indomethacin 50 MG Capsule 1 capsule with food or milk Orally Twice a day Medication List reviewed and reconciled with the patient * Allergies: p redniSONE: Insides Feel Like On Fireno[Allergies Verified] Objective: * Vitals: W t:97.2lbs, Ht: 66 in, BP:98/60mm Hg, BMI:15.69Index, Ht-cm: 167.64 cm, Wt-k.09 kg. * Examination: P hysical Exam: GENERAL: [...] mood and affect. Assessment: * Assessment: 1. H ypertension - I10 (Primary) 2 . C OPD (chronic obstructive pulmonary disease) - J44.9 3 . T hrombocythemia - D47.3 4 . A cute anemia - D64.9 5 . B ack pain - M54.9 Plan: * Treatment: 2.?Thrombocythemia?LAB: CBC AUTO DIFF* Daily 3.?Acute anemia?LAB: CBC AUTO DIFF* Daily * Procedure Codes: * Preventive Medicine: Screenings/Counseling: T OBACCO ACTION PLAN Patient counselled on the dangers of tobacco use and urged to quit. 0 12/01/2024 . B MO ACTION PLAN Below Normal BMI Follow-up D ietary management education, guidance, and counseling * * Sign off status: Completed Visit Status: C HK (Check Out) true * Provider: Randal Swenson (TTC)MD Date: 0 12/01/2024 Generated for Printi ng/Faxing/eTransmitting on: 0 12/04/2024 12:27 PM EDT History and Physical Notes * Examination Category Sub-Category Detail Notes Category Not [...]
--- OUTSIDE RECORDS SUMMARY | 2024-12-01 06:56 | XMS_ITS ---
Demographics Address [facility] [address] [address] Mobile Email Address Preferred Language en Marital Status Sabianism Affiliation Unknown Race White Ethnic Group Not or Lati no Author Organization [facility] in [place] Address [address] [place] [address] Care Team Providers Care Juvenile Justice Officer Name Role Phone Mansoor Swenson Primary Care Provider Reason For Referral Diagnosis 1 Thrombocythemia (D47 .3) Referral Organization [facility] Referring Provider First Name Mansoor Referring Provider Last Name Leela Ref[facility] icine Referred Provider Timmy Duval Referred Provider Specialty Oncology Referral Priority Routine REASON FOR VISIT oncology referral Encounters Encounter Location Date Provider Diagnosis [facility] [address] [place] [address] 12/01/2024 Mansoor Swenson Thrombocythemia D47. 3 Assessments Encounter Date Diagnosis (ICD Code) Assessment Notes Treatment Notes Treatment Clinical Notes Section Notes 12/01/2024 Thrombocythemia (ICD-10 - D47.3) Plan Of Treatment Referrals Referral Date Details 12/01/2024 12/01/2024Timmy Progress Notes * Rylee MERRILL KDOB:[birth year] (49 yo F)Acc No.[id number]:12/01/2024 Patient: Olaf Rylee HERNANDEZ :1975 A ge:49 Y S ex:Female Address:[facility] [address], [address] Subjective: * Chief Complaints: * O ncology referral * Medical History: * Surgical History: * Hospitalization/Major Diagno stic Procedure: * Medications: Objective: * Vitals: * Physical Examination: Assessment: * Assessment: 1. T hrombocythemia - D47.3 (Primary) Plan: * Treatment: * Procedure Codes: * true * Date: Generated for Colby woods/Titi/Krista on: 0 12/04/2024 12:26 PM EDT Consultation Request Notes Referral Date Referring Provider Referred Provider Not es 12/01/2024 Mansoor Swenson Adnan
--- OUTSIDE RECORDS SUMMARY | 2024-12-01 06:59 | XMS_ITS ---
Author Organization [facility] in [place] Address [address] [place] [address] Care Team Providers Care Volcanology Professor Name Role Phone Mansoor Swenson Primary Care Provider [phone] Reason For Referral Reason please lubna lane Diagnosis 1 CHF (congestive hear t failure) (I50.9) Referral Organization [facility] Referring Provider First Name Mansoor Referring Provider Last Name Leela [facility] icine Referred Provider [facility] Cardiology, [facility] Referred Provider Specialty Cardiology Referral Priority Routine REASON FOR VISIT cardio referral Problems Problem Type SNOMED Code ICD Code Onset Dates Problem Status W/U Status Risk Notes Problem Congestive heart failure (21493420) CHF (congestive heart failure) (I50.9) Active confirmed Encounters Encounter Location Date Provider Diagnosis [facility] [address] [place] [address] 12/01/2024 Mansoor Swenson CHF (congestive hear t failure) I50.9 Assessments Encounter Date Diagnosis (ICD Code) Assessment Notes Treatment Notes Treatment Clinical Notes Section Notes 12/01/2024 CHF (congestive heart failure) (ICD-10 - I50.9) Plan Of Treatment Referrals Referral Date Details 12/01/2024 12/01/2024, please mauri sherman, Specialty Clinic [facility] Cardiology Progress Notes * Rylee MERRILL KDOB:[birth year] (49 yo F)Acc No.[id number]:12/01/2024 Patient: Olaf Rylee HERNANDEZ :1975 A ge:49 Y S ex:Female Address:[address], [place], [address] Subjective: * Chief Complaints: * C ardio referral * Medical History: * Surgical History: * Hospitalization/Major Diagno stic Procedure: * Medications: Objective: * Vitals: * Physical Examination: Assessment: * Assessment: 1. C HF (congestive heart failure) - I50.9 (Primary) Plan: * Treatment: * Procedure Codes: * true * Date: Generated for Colby woods/Titi/eTransmitting on: 0 12/04/2024 12:26 PM EDT Consultation Request Notes Referral Date Referring Provider Referred Provider Not es 12/01/2024 Mansoor Swenson [facility] Cardiology, Specialty Clinic please schedule lane
--- OUTSIDE RECORDS SUMMARY | 2024-12-04 12:25 | XMS_ITS | Encounter Summary ---
Demographics Address [address] [facility] [address] [place] [address] Mobile Phone Home Phone Work Phone Email Address Preferred Language en Marital Status Catholic Affiliation Unknown Race White Ethnic Group Not or Lati no Author Organization [facility] Address [address] [place] [address] Care Team Providers Care Mixer Wet Pour Name Role Phone Domi Altamirano NP Unavailable [phone] Hiren Horton MD Primary Care Provider Domi Altamirano EMPLOYEE COMMUNICATIONS SPECIALIST Unavailable [phone] Domi Altamirano NP Unavailable [phone] Unallocated, Noms Provider Primary Care Provi taylor Encounter Details Date Type Department Care Team (Late st Contact Info) Description 09/16/2024 Abstract [facility] [address] [place] [address] Domi Altamirano, EMPLOYEE COMMUNICATIONS SPECIALIST [address] [place] [address] Social History Tobacco Use Types Packs/Day Years [...] How often do you attend yarsanism or adventist serv ices? Never 10/08/2023 Do [...] medical care, and heating? Very hard 10/08/2023 [facility] [place] of Occupat ional Health - Occupational Stress [...] on filedocumented in this encounter Care Teams Mixer Wet Pour Relationship Specialty Start Date End Date Hiren Horton MD PCP - General Family Medicine 07/26/23 10/13/24 Domi Altamirano NP [address] [place] [address] PCP - [employer] [employer] 08/24/24 Unallocated, Noms Provider, [address] [place] [address] PCP - General Family Medicine 10/14/24 Domi Altamirano NP Nurse Practitioner Family Medicine 03/26/22 10/13/24 Domi Altamirano NP Nurse Practitioner Family Medicine 07/26/23 10/13/24 documented as of this encounter
--- OUTSIDE RECORDS SUMMARY | 2024-12-04 12:25 | XMS_ITS | Encounter Summary ---
Demographics Address [address] [facility] [address] [place] [address] Mobile Phone Home Phone Work Phone Email Address Preferred Language en Marital Status Rastafarian Affiliation Unknown Race White Ethnic Group Not or Lati no Author Organization [facility] Address [address] [place] [address] Care Team Providers Care Assessment Nurse Practitioner Name Role Phone Domi Altamirano NP Unavailable [phone] Hiren Horton MD Primary Care Provider Domi Altamirano CHIEF CLINICAL DIETITIAN Unavailable [phone] Domi Altamirano NP Unavailable [phone] Unallocated, Noms Provider Primary Care Provi taylor Encounter Details Date Type Department Care Team (Late st Contact Info) Description 09/17/2024 Abstract [facility] [address] [place] [address] Domi Altamirano, CHIEF CLINICAL DIETITIAN [address] [place] [address] Social History Tobacco Use Types Packs/Day Years [...] How often do you attend scientology or hoahaoism serv ices? Never 10/08/2023 Do you belong [...] medical care, and heating? Very hard 10/08/2023 [facility] [place] of Occupat ional Health - Occupational Stress [...] any time in the past 12 m [facility], were you homeless or living in [...] on filedocumented in this encounter Care Teams Assessment Nurse Practitioner Relationship Specialty Start Date End Date Hiren Horton MD PCP - General Family Medicine 07/26/23 10/13/24 Domi Altamirano NP [address] [place] [address] PCP - [place] [employer] 08/24/24 Unallocated, Noms Provider, [address] [place] [address] PCP - General Family Medicine 10/14/24 Domi Altamirano NP Nurse Practitioner Family Medicine 03/26/22 10/13/24 Domi Altamirano NP Nurse Practitioner Family Medicine 07/26/23 10/13/24 documented as of this encounter
--- OUTSIDE RECORDS SUMMARY | 2024-12-04 12:25 | XMS_ITS | Encounter Summary ---
Demographics Address [address] [facility] [address] [place] [address] Mobile Phone Home Phone Work Phone Email Address Preferred Language en Marital Status Islam Affiliation Unknown Race White Ethnic Group Not or Lati no Author Organization [facility] Address [address] [place] [address] Care Team Providers Care Apron Operator Name Role Phone Domi Altamirano NP Unavailable [phone] Hiren Horton MD Primary Care Provider [phone] Domi Altamirano BANQUET WAITER/WAITRESS Unavailable [phone] Domi Altamirano NP Unavailable [phone] Unallocated, Noms Provider Primary Care Provi taylor Encounter Details Date Type Department Care Team (Late st Contact Info) Description 09/16/2024 Orders Only [facility] [address] [place] [address] Domi Altamirano, BANQUET WAITER/WAITRESS [address] [facility] [place] [address] Social History Tobacco Use Types Packs/Day Years [...] How often do you attend protestant or shinto serv ices? Never 10/08/2023 Do [...] medical care, and heating? Very hard 10/08/2023 [facility] [place] of Occupat ional Health - Occupational Stress [...] on filedocumented in this encounter Care Teams Apron Operator Relationship Specialty Start Date End Date Hiren Horton MD PCP - General Family Medicine 07/26/23 10/13/24 Domi Altamirano NP [address] [place] [address] PCP - [facility] 08/24/24 Unallocated, Noms Mariaelena, [address] [place] [address] PCP - General Family Medicine 10/14/24 Domi Altamirano NP Nurse Practitioner Family Medicine 03/26/22 10/13/24 Domi Altamirano NP Nurse Practitioner Family Medicine 07/26/23 10/13/24 documented as of this encounter
--- OUTSIDE RECORDS SUMMARY | 2024-12-04 12:25 | XMS_ITS | Encounter Summary ---
Demographics Address [address] [facility] [address] [place] [address] Mobile Phone Home Phone Work Phone Email Address Preferred Language en Marital Status Anabaptist Affiliation Unknown Race White Ethnic Group Not or Lati no Author Organization [facility] Address [address] [place] [address] Care Team Providers Care Talent Development Consultant Name Role Phone Domi Altamirano FIRER DIESEL LOCOMOTIVE Unavailable [phone] Hiren Horton MD Primary Care Provider [phone] Domi Altamirano FIRER DIESEL LOCOMOTIVE Unavailable [phone] Domi Altamirano NP Unavailable [phone] Unallocated, Noms Provider Primary Care Provi taylor Encounter Details Date Type Department Care Team (Late st Contact Info) Description 09/17/2024 Orders Only [facility] [address] [facility] [place] [address] Li Ku MD [address] [place] [address] Social History Tobacco Use Types Packs/Day [...] How often do you attend judaism or moravian serv ices? Never 10/08/2023 Do [...] care, and heating? Very hard 10/08/2023 [facility] of Occupat ional Health - [...] any time in the past 12 m [facility], were you homeless or living in a chcf (including now)? Yes 10/08/2023 Comments Unknown Sex [...] on filedocumented in this encounter Care Teams Talent Development Consultant Relationship Specialty Start Date End Date Hiren Horton MD PCP - General Family Medicine 07/26/23 10/13/24 Domi Altamirano NP [address] [place] [address] PCP - [place] [employer] 08/24/24 Unallocated, Carol Ann Ferrell MD [address] [place] [address] PCP - General Family Medicine 10/14/24 Domi Altamirano NP Nurse Practitioner Family Medicine 03/26/22 10/13/24 Domi Altamirano NP Nurse Practitioner Family Medicine 07/26/23 10/13/24 documented as of this encounter
--- OUTSIDE RECORDS SUMMARY | 2024-12-04 12:26 | XMS_ITS | Encounter Summary ---
Demographics Address [address] [facility] [address] [place] [address] Home Phone Email Address Preferred Language en Marital Status Nondenominational Affiliation Unknown Race White Ethnic Group Not or Lati no Author Organization [facility] Address [address] [place] [address] Care Team Providers Care Manager Paper Name Role Phone Nakul Swenson MD Primary Care Provider [phone] Reason for Visit * Reason Onset Date Comments Med Refill 12/02/2024 Encounter Details Date Type Department Care Team (Late st Contact Info) Description 12/02/2024 Refill [facility] [address] [place] [address] Lina Mi MA Tachycardia (Primary Dx) Social History Tobacco Use Types Packs/Day Years Used Date Smoking Tobacco: Never Assessed Comments Unknown Sex and Gender Information Value Date Recorded Sex Assigned at Not on file Legal Sex Female 10:47 PM EDT Gender Identity Not on file Sexual Orientation Not on file documented as of this encounter Plan of Treatment Upcoming Encounters Date Type Department Care Team (Late Contact Info) Description 12/05/2024 3:40 PM EDT Office Visit [facility] [address] [place] [address] Ashlee Hoskins MD [address] [id number] [place] [address] documented as of this encounter Visit Diagnoses Diagnosis Tachycardia- Primary Unspecified tachycardia documented in this encounter Care Teams Manager Paper Relationship Specialty Start Date End Date Nakul wSenson MD [address] [facility] [address] [address] PCP - General Family Medicine 12/01/24 documented as of this encounter
--- OUTSIDE RECORDS SUMMARY | 2024-12-04 12:26 | XMS_ITS | Patient Health Record ---
Author Organization [facility] Address [address] [place] [address] Care Team Providers Care Preschool Head Teacher Name Role Phone Mansoor Swenson Primary Care Provider [phone] Katerine Chance Unavailable [phone] Allergies Allergen (clinical drug ingredient) Drug/Non Drug Allergy documented on EMR Reaction Allergy Type Onset Date Status prednisone predniSONE Insides Feel Like On Fire Drug Allergy Active Results Component Value Reference Range Notes CBC AUTO DIFF Reviewed date:10/20/2024 01:00:43 PM Interpretation: Performing Lab: Notes/Report: [facility] , White Blood Count 15.4 4.0-11.0 10 [...] 3/uL Performing Lab: see note ML - [facility] LB PROF 14(COMP METB) Reviewed date:10/20/2024 01:42:51 PM Interpretation: Performing Lab: Notes/Report: [facility] , Sodium 138 136-145 mmol/L Potassium 2.5 3.5-5.1 mmol/L RESULTS JIN D TO JUAN RUBALCAVA [employer]PENTER [employer] at 1320 Chloride 94 98-107 mmol/L Carbon [...] 0.2 Performing Lab: see note ML - [facility] LB CBC AUTO DIFF Reviewed date:11/18/2024 08:03:28 PM Interpretation: Performing Lab: Notes/Report: [facility] , White Blood Count 17.0 4.0-11.0 10 [...] Performing Lab: see note ML - [facility] LB PROF 14(COMP METB) Reviewed date:09/18/2024 07:21:43 PM Interpretation: Performing Lab: Notes/Report: [facility] , Sodium 138 136-145 mmol/L [...] Globulin Ratio 0.3 Performing Lab: see note [facility] LB White Blood Cells Reviewed date:09/22/2024 [...] 4 See Below For Report Result 4 SENIOR PEOPLESOFT DEVELOPER Performing Lab: see note LC - [facility] [...] FOLLOW Lower Respiratory Culture Performed at: - [facility] Lower Respiratory Culture WILL FOLLOW Lower Respiratory Culture [address] [place], [place] [id number] Lower Respiratory Culture WILL FOLLOW Lower Respiratory Culture Child Care Lead Teacher: Abel Finnegan PhD, Phone: [phone] Lower Respiratory Culture WILL FOLLOW Performing Lab: see note LC - [facility] LB SEE REPORT - Supervisor Filter Assembly Id information not found for OBX-specific reproducer legend CBC AUTO DIFF Reviewed date:09/21/2024 01:12:51 PM Interpretation: Performing Lab: Notes/Report: [facility] , White Blood Count 17.4 4.0-11.0 10 [...] 8.2 9.5-13.5 fL Performing Lab: see note - [facility] LB PROF 14(COMP METB) Reviewed date:09/21/2024 01:12:51 PM Interpretation: Performing Lab: Notes/Report: [facility] , Sodium 138 136-145 mmol/L [...] Globulin Ratio 0.3 Performing Lab: see note [facility] LB Manual Differential Reviewed date:09/21/2024 01:12:51 PM Interpretation: Performing Lab: Notes/Report: [facility] , Segmented Neutrophils % Manual 72.0 43.0-75.0 [...] 1+ Anisocytosis 1+ Performing Lab: see note [facility] LB B pertussis IgG/M/A Ab Reviewed date:09/23/2024 07:04:33 PM Interpretation: Performing Lab: Notes/Report: [facility] , B pertussis IgG Ab 2.04 0.00-0.94 index Negative <0.95 Equivocal 0.95 - 1.04 Positive >1.04 B pertussis IgM Ab 1.2 0.0-0.9 index Negative <1.0 Borderline 1.0 - 1.1 Positive >1.1 B pertussis IgA Ab 1.1 0.0-0.9 index Negative <1.0 Borderline 1.0 - 1.1 Positive >1.1 Performed at: [address] [id number] Child Care Lead Teacher: Opal Gibbs MD, Phone: [phone] Performing Lab: see note LC - [facility] LB XR chest 2V Reviewed date:09/21/2024 01:12:51 PM Interpretation: Performing Lab: Notes/Report: Source Facility: [place] [address] XRay Report Signed Patient: RYLEE BURTON MR#: [id number] : 1975 Acct:[id number] Age/Sex: 49 / F ADM Date: 09/15/24 Loc: MS - Attending Dr: Nakul Swenson M.D. Ordering Physician: Nakul Swenson M.D. Date of Service: 09/19/24 Procedure(s): XR chest 2V Accession Number(s): [id number] cc: Domi Altamirano SENIOR PEOPLESOFT DEVELOPER; Nakul Swenson M.D. [place] [address] Patient Name: RYLEE BURTON MRN: [id number] date: 1975 Sex: F Assigned Patient Location: IN Current Patient Location: [place] Accession/Order Number: [id number] Exam Date: 09/19/2024 09:16 Report Date: 09/19/2024 09:17 At the request of: NAKUL SWENSON MD Procedure: XR chest 2V PA [...] Bach M.D. 09/19/2024 9:17 AM Dictation Location: [place] [address] Electronically authenticated by: [id number] Date: 09/19/2024 09:17 Dictated By: Iraida Bach M.D. Signed By: 09/19/24919 DD/ 6 TD/TT: Operational Meteorologist: [place] [address] XRay Report Signed Patient: JABIER BURTON MR#: [id number] : 1975 Acct:[id number] Age/Sex: 49 / F ADM Date: 09/15/24 Loc: MS - Attending Dr: Irlanda Swenson M.D. Ordering Physician: Nakul Swenson M.D. Date of Service: 09/19/24 Procedure(s): XR chest 2V Accession Number(s): [id number] cc: Domi Altamirano NP ; Nakul Swenson M.D. [place] [address] Patient Name: RYLEE BURTON MRN: [id number] date: 1975 Sex: F Assigned Patient Loc ation: MS Current Patient Loca tion: MS Accession/Order Numb er: [id number] Exam Date: 09/19/2024 09:16 Report Date: 09/19/2024 09:17 At the request of: NAKUL SWENSON MD Procedure: XR chest 2V PA [...] Bach M.D. 09/19/2024 9:17 AM Dictation Location: [place] [address] Electronically authenticated by: [id number] Y Date: 09/19/2024 09:17 Dictated By: Iraida Bach M.D. Signed By: 09/19/24919 DD/ 6 TD/TT: Operational Meteorologist: Packed Red Blood Cells Reviewed date:09/21/2024 01:12:51 PM Interpretation: Performing Lab: Notes/Report: Packed Red Blood Cells [id number] OP RC TRANSFUSED 09/20/24 1558 [id number] OP RC TRANSFUSED 09/20/24 1239 Type and Screen Reviewed date:09/21/2024 01:12:51 PM Interpretation: Performing Lab: Notes/Report: [facility] , Blood Type O Positive Antibody Screen NEGATIVE CBC AUTO DIFF Reviewed date:09/21/2024 01:12:51 PM Interpretation: Performing Lab: Notes/Report: [facility] , White Blood Count 24.0 [...] Performing Lab: see note ML - [facility] LB PROF 14(COMP METB) Reviewed date:09/24/2024 07:13:51 PM Interpretation: Performing Lab: Notes/Report: [facility] , Sodium 137 136-145 mmol/L [...] Ratio 0.3 Performing Lab: see note - [facility] LB Manual Differential Reviewed date:09/24/2024 07:13:51 PM Interpretation: Performing Lab: Notes/Report: [facility] , Segmented Neutrophils % Manual [...] Anisocytosis 2+ Performing Lab: see note - [facility] LB CBC AUTO DIFF Reviewed date:10/08/2024 05:20:20 PM Interpretation: Performing Lab: Notes/Report: [facility] , White Blood Count 25.4 [...] fL Performing Lab: see note ML - [facility] LB Erythrocyte Sedimentation Ra te Reviewed date:10/08/2024 05:20:20 PM Interpretation: Performing Lab: Notes/Report: [facility] , Erythrocyte Sedimentation Rate >130 <=20 mm/hr Performing Lab: see note ML - [facility] LB Reticulocyte Pct Auto Reviewed date:10/08/2024 05:20:20 PM Interpretation: Performing Lab: Notes/Report: [facility] , Reticulocyte Pct Auto 1.34 0.60-3.10 % Performing Lab: see note ML - [facility] LB BNP Reviewed date:10/07/2024 08:47:32 PM Interpretation: Performing Lab: Notes/Report: [facility] , NT Pro B Type Natriuretic Pept 963.0 <=900.0 pg/mL Performing Lab: see note ML - [facility] LB CBC AUTO DIFF Reviewed date:10/07/2024 08:47:32 PM Interpretation: Performing Lab: Notes/Report: [facility] , White Blood Count 27.0 4.0-11.0 10 [...] 8.4 9.5-13.5 fL Performing Lab: see note [facility] LB D-DIMER Reviewed date:10/07/2024 08:47:32 PM Interpretation: Performing Lab: Notes/Report: [facility] , D Dimer 0.59 <=0.59 mg/L FEU [...] and generalized hospitalization. Performing Lab: see note - [facility] LB DRUG SCREEN RAPID (URINE) Reviewed date:10/07/2024 08:47:32 PM Interpretation: Performing Lab: Notes/Report: CATH [facility] , Cannabinoid Screen Urine POSITIVE NEGATIVE Phencyclidine [...] Antidepressants): 300 ng/mL Performing Lab: see note [facility] LB LACTATE or LACTIC ACID Reviewed date:10/07/2024 08:47:32 PM Interpretation: Performing Lab: Notes/Report: [facility] , Lactate/Lactic Acid 0.8 0.4-2.0 mmol/L Performing Lab: see note ML - [facility] LB LIVER PROFILE Reviewed date:10/07/2024 08:47:32 PM Interpretation: Performing Lab: Notes/Report: [facility] , Bilirubin Total 0.9 0.2-1.0 mg/dL Bilirubin Direct 0.5 0.0-0.2 mg/dL Aspartate Amino Transferase 38 15-37 U/L Alanine Aminotransferase 42 14-59 U/L Alkaline Phosphatase 696 46-116 U/L Total Protein 8.3 6.4-8.2 g/dL Albumin Level 1.5 3.4-5.0 g/dL Globulin 6.8 Albumin Globulin Ratio 0.2 Performing Lab: see note ML - [facility] PROF CHEM 8 (BAS METB) Reviewed date:10/07/2024 08:47:32 PM Interpretation: Performing Lab: Notes/Report: [facility] , Sodium 132 136-145 mmol/L Potassium 4.3 [...] mg/dL Performing Lab: see note ML - [facility] LB UA RANDOM W or MICROSCOPIC Reviewed date:10/07/2024 08:47:32 PM Interpretation: Performing Lab: Notes/Report: [facility] , Color Urine DK. ORANGE YELLOW Clarity Urine CLEAR CLEAR Specific Munden Urine 1.020 1.005-1.025 pH Urine 6.0 5.0-9.0 [...] Culture Indicated NO Performing Lab: see note [facility] LB Blood Culture 1 Reviewed date:10/13/2024 07:21:11 PM Interpretation: Performing Lab: Notes/Report: RIGHT AC - [facility] , Blood Culture 1 See Below For Report Blood Culture 1 NG5D NO GROWTH AT 5 DAYS.^NO GROWTH AT 5 DAYS. Performing Lab: see note [facility] LB Blood Culture 2 Reviewed date:10/13/2024 07:21:11 PM Interpretation: Performing Lab: Notes/Report: RIGHT HAND - [facility] , Blood Culture 2 See Below For Report Blood Culture 2 NG5D NO GROWTH AT 5 DAYS.^NO GROWTH AT 5 DAYS. Performing Lab: see note [facility] LB Manual Differential Reviewed date:10/07/2024 08:47:32 PM Interpretation: Performing Lab: Notes/Report: [facility] , Segmented Neutrophils % Manual 79.0 43.0-75.0 [...] 1 0 3/uL Performing Lab: see note [facility] LB Troponin I High Sensitivity Reviewed date:10/07/2024 08:47:32 PM Interpretation: Performing Lab: Notes/Report: [facility] , Troponin I High Sensitivity <4.0 4.0-51.3 pg/mL CUT-OFF POINTS HAVE BEEN ESTABLISHED BASED ON THE FOURTH UNIVERSAL DEFINITION OF MYOCARDIAL INFARCTION. THE UPPER REFERENCE LIMIT (URL) OF TROPONIN, DEFINED THE 99TH PERCENTILE OF cTnI DISTRIBUTION IN A REFERENCE POPULATION, HAS BEEN CONFIRMED THE DECISION THRESHOLD FOR CO DIAGNOSIS. 99TH PERCENTILE = 51.4 PG/ML NOTE: HIGH-SENSITIVITY TROPONIN ASSAY IS NOT INTENDED TO BE USED IN ISOLATION BUT SHOULD BE INTERPRETED IN CONJUNCTION WITH OTHER DIAGNOSTIC AND CLINICAL INFORMATION. Performing Lab: see note ML - [facility] HCG Qualitative* Reviewed date:10/07/2024 08:47:32 PM Interpretation: Performing Lab: Notes/Report: [facility] HCG Qualitative NEGATIVE NEGATIVE Performing Lab: see note - [facility] LB CT head/brain wo con Reviewed date:10/07/2024 08:47:32 PM Interpretation: Performing Lab: Notes/Report: Source Facility: [place] [address] CT Scan Report Signed Patient: RYLEE BURTON MR#: [id number] : 1975 Acct:[id number] Age/Sex: 49 / F ADM Date: 10/07/24 Loc: ER Attending Dr: Ordering Physician: Genet Nam M.D. Date of Service: 10/07/24 Procedure(s): CT head/brain wo con Accession Number(s): [id number] cc: Nakul Swenson M.D. [place] [address] Patient Name: RYLEE BURTON MRN: [id number] date: 1975 Sex: F Assigned Patient Location: ER Current Patient Location: ED.MAIN Accession/Order Number: [id number] Exam Date: 10/07/2024 18:52 Report Date: 10/07/2024 [...] Wheatley M.D. 10/07/2024 6:55 PM Dictation Location: [place] [address] Electronically authenticated by: [id number] Y Date: 10/07/2024 18:55 Dictated By: Seven Wheatley M.D. Signed By: 10/07/241857 DD/ 54 TD/TT: Operational Meteorologist: [place] [address] CT Scan Report Signed Patient: JABIER BURTON MR#: [id number] : 1975 Acct:[id number] Age/Sex: 49 / F ADM Date: 10/07/24 Loc: ER Attending Dr: Ordering Physician: Genet Nam M.D. Date of Service: 10/07/24 Procedure(s): CT head/brain wo con Accession Number(s): [id number] cc: Nakul Swenson M.D. [address] [address] Patient Name: RYLEE BURTON MRN: [id number] date: 1975 Sex: F Assigned Patient Loc ation: ER Current Patient Loca tion: ED.MAIN Accession/Order Numb er: [id number] Exam Date: 10/07/2024 18:52 Report Date: 10/07/2024 [...] Wheatley M.D. 10/07/2024 6:55 PM Dictation Location: [place] [address] Electronically authenticated by: [id number] Y Date: 10/07/2024 18:55 Dictated By: Seven Wheatley M.D. Signed By: 10/07/241857 DD/ 54 TD/TT: Operational Meteorologist: CT angio chest Reviewed date:10/07/2024 09:58:47 PM Interpretation: Performing Lab: Notes/Report: Source Facility: [place] [address] [place] [address] CT Scan Report Signed Patient: RYLEE BURTON MR#: [id number] : 1975 Acct:[id number] Age/Sex: 49 / F ADM Date: 10/07/24 Loc: ER Attending Dr: Ordering Physician: Araceli Jonas M.D. Date of Service: 10/07/24 Procedure(s): CT angio chest Accession Number(s): [id number] cc: Nakul Swenson M.D. [address] [address] Patient Name: RYLEE BURTON MRN: [id number] date: 1975 Sex: F Assigned Patient Location: ER Current Patient Location: ER Accession/Order Number: [id number] Exam Date: 10/07/2024 20:53 Report Date: 10/07/2024 21:13 At the request of: ARACELI JONAS MD Procedure: CT angio chest CT [...] Wheatley M.D. 10/07/2024 9:13 PM Dictation Location: [place] [address] Electronically authenticated by: [id number] Y Date: 10/07/2024 21:13 Dictated By: Seven Wheatley M.D. Signed By: 10/07/242115 DD/ 12 TD/TT: Operational Meteorologist: [place] [address] CT Scan Report Signed Patient: JABIER BURTON MR#: [id number] : 1975 Acct:[id number] Age/Sex: 49 / F ADM Date: 10/07/24 Loc: ER Attending Dr: Ordering Physician: Araceli Jonas M.D. Date of Service: 10/07/24 Procedure(s): CT ang io chest Accession Number(s): [id number] cc: Nakul Swenson M.D. [place] [address] Patient Name: RYLEE BURTON MRN: [id number] date: 1975 Sex: F Assigned Patient Loc ation: ER Current Patient Loca tion: ER Accession/Order Numb er: [id number] Exam Date: 10/07/2024 20:53 Report Date: 10/07/2024 21:13 At the request of: ARACELI JONAS MD Procedure: CT angio chest CT [...] No evidence of pulmonary embolism. Mediastinum and Afbi : Mediastinal adenopathy is noted with the [...] Wheatley M.D. 10/07/2024 9:13 PM Dictation Location: [place] [address] Electronically authenticated by: [id number] Y Date: 10/07/2024 21:13 Dictated By: Seven Wheatley M.D. Signed By: 10/07/242115 DD/ 12 TD/TT: Operational Meteorologist: LACTATE or LACTIC ACID Reviewed date:10/08/2024 05:20:19 PM Interpretation: Performing Lab: Notes/Report: [facility] , Lactate/Lactic Acid 0.5 0.4-2.0 mmol/L Performing Lab: see note ML - [facility] LB MAGNESIUM Reviewed date:10/08/2024 05:20:19 PM Interpretation: Performing Lab: Notes/Report: [facility] , Magnesium 2.0 1.8-2.4 mg/dL Performing Lab: see note ML - [facility] LB PHOSPHORUS Reviewed date:10/08/2024 05:20:19 PM Interpretation: Performing Lab: Notes/Report: [facility] , Phosphorus 3.9 2.6-4.7 mg/dL Performing Lab: see note - [facility] LB PTT Reviewed date:10/08/2024 05:20:19 PM Interpretation: Performing Lab: Notes/Report: [facility] , Partial Thromboplastin Time 33.7 22.3-36.2 sec Performing Lab: see note [facility] Prothrombin Time INR Reviewed date:10/08/2024 05:20:19 PM Interpretation: Performing Lab: Notes/Report: [facility] , Prothrombin Time 13.5 9.0-11.6 sec INR 1.31 DESIRED INR: 2.0-3.0 CONDITIONS NOT LISTED BELOW 2.5-3.5 FOR PROSTHETIC HEART VALVE REPLACEMENT 2.5-3.5 RECURRENT THROMBOSIS Performing Lab: see note [facility] HIV Ab/p24 Ag with Reflex Reviewed date:10/09/2024 05:21:52 PM Interpretation: Performing Lab: Notes/Report: [facility] , HIV Ab/p24 Ag Screen Non Reactive Non Reactive HIV-1/HIV-2 antibodies and HIV-1 p24 antigen were NOT detected. There is no laboratory evidence of HIV infection. HIV Negative Performed at: [facility] [address] [id number] Child Care Lead Teacher: Abel Finnegan PhD, Phone: [phone] Performing Lab: see note [facility] LB Acute Hepatitis Reviewed date:10/09/2024 05:21:52 PM [...] exists to indicate HCV infection. Performed at: [facility] [address] [id number] Child Care Lead Teacher: Abel Finnegan PhD, Phone: [phone] Performing Lab: see note [facility] LB CT abdomen pelvis w con Reviewed date:10/08/2024 05:20:20 PM Interpretation: Performing Lab: Notes/Report: Source Facility: [facility] [place] [address] CT Scan Report Signed Patient: RYLEE BURTON MR#: [id number] : 1975 Acct:[id number] Age/Sex: 49 / F ADM Date: 10/07/24 Loc: MS 202-[address]: Cynthia Hernandez M.D. Ordering Physician: Cynthia Hernandez M.D. Date of Service: 10/08/24 Procedure(s): CT abdomen pelvis w con Accession Number(s): [id number] cc: Nakul Swenson M.D. [place] [address] Patient Name: RYLEE BURTON MRN: [id number] date: 1975 Sex: F Assigned Patient Location: IN Current Patient Location: IN Accession/Order Number: [id number] Exam Date: 10/08/2024 08:22 Report Date: 10/08/2024 [...] Bach M.D. 10/08/2024 8:38 AM Dictation Location: [place] [address] Electronically authenticated by: [id number] Y Date: 10/08/2024 08:38 Dictated By: Iraida Bach M.D. Signed By: 10/08/24 0841 DD/ TD/TT: Operational Meteorologist: [place] [address] CT Scan Report Signed Patient: JABIER BURTON MR#: [id number] : 1975 Acct:[id number] Age/Sex: 49 / F ADM Date: 10/07/24 Loc: MS 202-[address]: Cynthia Hernandez M.D. Ordering Physician: Cynthia Hernandez M.D. Date of Service: 10/08/24 Procedure(s): CT abd omen pelvis w con Accession Number(s): [id number] cc: Nakul Swenson M.D. [place] [id number] Patient Name: RYLEE BURTON MRN: [id number] date: 1975 Sex: F Assigned Patient Loc ation: MS Current Patient Loca tion: Accession/Order Numb er: [id number] Exam Date: 10/08/2024 08:22 Report Date: 10/08/2024 [...] Bach M.D. 10/08/2024 8:38 AM Dictation Location: [place] [address] Electronically authenticated by: [id number] Y Date: 10/08/2024 08:38 Dictated By: Iraida Bach M.D. Signed By: 10/08/2441 DD/ 7 TD/TT: Operational Meteorologist: CBC AUTO DIFF Reviewed date:10/27/2024 01:04:56 PM Interpretation: Performing Lab: Notes/Report: [facility] , White Blood Count 17.3 4.0-11.0 10 [...] Performing Lab: see note ML - [facility] LB PROF 14(COMP METB) Reviewed date:10/27/2024 01:04:56 PM Interpretation: Performing Lab: Notes/Report: [facility] , Sodium 137 136-145 mmol/L Potassium 3.4 [...] Performing Lab: see note ML - [facility] LB CBC AUTO DIFF Reviewed date:11/05/2024 12:48:21 PM Interpretation: Performing Lab: Notes/Report: [facility] , White Blood Count 11.9 4.0-11.0 10 [...] Performing Lab: see note ML - [facility] LB Packed Red Blood Cells Reviewed date:11/05/2024 06:22:35 PM Interpretation: Performing Lab: Notes/Report: Packed Red Blood Cells [id number] OP RC TRANSFUSED 11/05/24 1216 [id number] OP RC TRANSFUSED 11/05/24 0920 Type and Screen Reviewed date:11/05/2024 06:22:35 PM Interpretation: Performing Lab: Notes/Report: [facility] , Blood Type O Positive Antibody Screen NEGATIVE CBC AUTO DIFF Reviewed date:11/13/2024 04:23:43 PM Interpretation: Performing Lab: Notes/Report: [facility] , White Blood Count 16.1 4.0-11.0 10 [...] 3/uL Performing Lab: see note ML - [facility] LB PROF 14(COMP METB) Reviewed date:11/13/2024 04:23:43 PM Interpretation: Performing Lab: Notes/Report: [facility] , Sodium 135 136-145 mmol/L Potassium [...] Performing Lab: see note ML - [facility] LB CBC AUTO DIFF Reviewed date:11/20/2024 05:06:15 PM Interpretation: Performing Lab: Notes/Report: [facility] , White Blood Count 22.7 [...] fL Performing Lab: see note ML - [facility] LB PROF 14(COMP METB) Reviewed date:11/20/2024 05:06:15 PM Interpretation: Performing Lab: Notes/Report: [facility] , Sodium 133 136-145 mmol/L Potassium 3.9 [...] Performing Lab: see note ML - [facility] LB Manual Differential Reviewed date:11/20/2024 05:06:15 PM Interpretation: Performing Lab: Notes/Report: [facility] , Segmented Neutrophils % Manual 79.0 43.0-75.0 [...] 3/uL Performing Lab: see note ML - [facility] LB Packed Red Blood Cells Reviewed date:11/24/2024 02:07:02 PM Interpretation: Performing Lab: Notes/Report: Packed Red Blood Cells [id number] ON RC TRANSFUSED 11/21/24 1228 [id number] ON RC TRANSFUSED 11/21/24 1037 Type and Screen Reviewed date:11/24/2024 02:07:02 PM Interpretation: Performing Lab: Notes/Report: [facility] , Blood Type O Positive Antibody Screen NEGATIVE BNP Reviewed date:11/27/2024 12:36:13 PM Interpretation: Performing Lab: Notes/Report: [facility] , NT Pro B Type Natriuretic Pept 7757.0 <=900.0 pg/mL RESULTS CALLED TO JOSE ANGEL LAZO RN @BY Lora Davila at 2338 Performing Lab: see note ML - [facility] LB CBC AUTO DIFF Reviewed date:11/26/2024 01:00:03 PM Interpretation: Performing Lab: Notes/Report: [facility] , White Blood Count 25.4 4.0-11.0 10 3/uL Red Blood Count 2.45 4.20-5.40 10 6/uL Hemoglobin 7.0 12.0-16.0 g/dL Hematocrit 22.7 36.0-48.0 % RESULTS CALLED TO BORIS QUIJANO RN at 0841 Mean Corpuscular Volume 92.7 81.0-99.0 fL Mean Corpuscular Hemoglobin 28.6 26.7-34.0 pg Mean Corpuscular HGB Conc 30.8 29.9-35.2 g/dL Red Cell Distribution Width 20.9 11.0-15.0 % Platelet Count 986 150-450 10 3/uL Mean Platelet Volume 9.9 9.5-13.5 fL Performing Lab: see note - [facility] LB LACTATE or LACTIC ACID Reviewed date:11/26/2024 01:00:03 PM Interpretation: Performing Lab: Notes/Report: [facility] , Lactate/Lactic Acid 0.6 0.4-2.0 mmol/L Performing Lab: see note ML - [facility] LB LDH Reviewed date:11/26/2024 01:00:03 PM Interpretation: Performing Lab: Notes/Report: [facility] , Lactate Dehydrogenase 176 81-234 U/L Performing Lab: see note ML - [facility] LB LIPASE Reviewed date:11/26/2024 01:00:03 PM Interpretation: Performing Lab: Notes/Report: [facility] , Lipase <10.0 16.0-77.0 U/L Performing Lab: see note ML - [facility] LB MAGNESIUM Reviewed date:11/26/2024 01:00:03 PM Interpretation: Performing Lab: Notes/Report: [facility] [facility] , Magnesium 1.6 1.8-2.4 mg/dL Performing Lab: see note ML - [facility] PROF 14(COMP METB) Reviewed date:11/26/2024 01:00:03 PM Interpretation: Performing Lab: Notes/Report: [facility] , Sodium 135 136-145 mmol/L Potassium 3.5 3.5-5.1 mmol/L Chloride 97 98-107 mmol/L Carbon Dioxide 24.3 21.0-32.0 mmol/L Anion Gap 17.2 Glucose 144 74-106 mg/dL Blood Urea Nitrogen 15.0 7.0-18.0 mg/dL Creatinine 0.56 0.55-1.02 mg/dL Estimated GFR ( Fang >60 >=60 mL/min/1.73m 2 Estimated GFR (Non- Lizabeth >60 >=60 mL/min/1.73m 2 BUN Creatinine Ratio 26.8 Calcium 9.5 8.5-10.1 mg/dL Bilirubin Total 1.1 0.2-1.0 mg/dL Aspartate Amino Transferase 22 15-37 U/L Alanine Aminotransferase 20 14-59 U/L Alkaline Phosphatase 569 46-116 U/L Total Protein 7.5 6.4-8.2 g/dL Albumin Level 1.1 3.4-5.0 g/dL Globulin 6.4 Albumin Globulin Ratio 0.2 Performing Lab: see note ML - [facility] LB UA RANDOM W or MICROSCOPIC Reviewed date:11/26/2024 01:00:03 PM Interpretation: Performing Lab: Notes/Report: [facility] , Color Urine YELLOW YELLOW Clarity Urine CLEAR CLEAR Specific Munden Urine <=1.005 1.005-1.025 pH Urine 6.0 5.0-9.0 Protein Urine 30 NEG/TRACE mg/dL Glucose Urine UA NEGATIVE NEGATIVE mg/dL Bilirubin Urine NEGATIVE NEGATIVE Ketones Urine 15 NEGATIVE mg/dL Blood Urine SMALL NEGATIVE Nitrite Urine POSITIVE NEGATIVE Urobilinogen Urine >=8.0 0.2-1.0 EU/dL Leukocyte Esterase Urine NEGATIVE NEGATIVE WBC Urine 2-5 NONE SEEN #/HPF RBC Urine 0-2 0-2 #/HPF Bacteria Urine LARGE NONE SEEN #/HPF Mucus Urine NONE SEEN NONE SEEN Squamous Epithelial Cell Urine FEW NONE/RARE #/LPF Crystals Seen? None Seen None Seen #/HPF Cast Seen? NONE SEEN NONE SEEN #/LPF Urine Culture Indicated YES-[facility] Performing Lab: see note [facility] URIC ACID SERUM Reviewed date:11/26/2024 01:00:04 PM Interpretation: Performing Lab: Notes/Report: [facility] , Uric Acid 1.9 2.6-6.0 mg/dL Performing Lab: see note [facility] LB Blood Culture 1 Reviewed date:12/02/2024 07:45:52 PM Interpretation: Performing Lab: Notes/Report: PEDS BOTTLE [facility] , Blood Culture 1 See Below For Report Blood Culture 1 NG5D NO GROWTH AT 5 DAYS.^NO GROWTH AT 5 DAYS. Performing Lab: see note [facility] LB Blood Culture 2 Reviewed date:12/02/2024 07:45:52 PM Interpretation: Performing Lab: Notes/Report: [facility]ED[facility] BOTTLE [facility] , Blood Culture 2 See Below For Report Blood Culture 2 NG5D NO GROWTH AT 5 DAYS.^NO GROWTH AT 5 DAYS. Performing Lab: see note [facility] LB Manual Differential Reviewed date:11/26/2024 01:00:04 PM Interpretation: Performing Lab: Notes/Report: [facility] , Segmented Neutrophils % Manual 84.0 43.0-75.0 Band Neutrophils % 1.0 0-5 % Lymphocytes Percent Manual 9.0 20.5-60.0 % Monocytes Percent Manual 6.0 1.7-12.0 % Eosinophils Percent Manual 0.0 0.9-7.0 % Basophils Percent Manual 0.0 0.2-2.0 % Segmented Neut Absolute Manual 21.33 1.4-6.5 10 3/uL Band Neutrophils Absolute 0.3 0.0-0.3 10 3/uL Lymphocytes Absolute Manual 2.28 1.20-3.80 10 3/uL Monocytes Absolute Manual 1.52 0.30-0.80 10 3/uL Eosinophils Absolute Manual 0.00 0.00-0.70 10 3/uL Basophils Abs Manual 0.00 0.00-0.10 1 0 3/uL Anisocytosis 1+ Performing Lab: see note ML - [facility] LB Packed Red Blood Cells Reviewed date:12/01/2024 07:28:22 PM Interpretation: Performing Lab: Notes/Report: Packed Red Blood Cells [id number] OP RC TRANSFUSED 11/28/24 1010 Type and Screen Reviewed date:12/01/2024 07:28:22 PM Interpretation: Performing Lab: Notes/Report: [facility] , Blood Type O Positive Antibody Screen NEGATIVE Urine Culture - [facility] Reviewed date:11/28/2024 01:05:36 PM Interpretation: Performing Lab: Notes/Report: [facility] , Urine Culture - [facility] See Below For Report Urine Culture - [facility] Testing performed at [facility] O:KLEPNE Isolated Urine Culture - [facility] [place] Count Organism: 1.1 Antibiotic Interpretation CYNTHIA Status Urine Culture - [facility] [address], [place] [address] Urine Culture - [facility] Testing performed at [facility] O:KLEPNE Isolated Urine Culture - [facility] [place] Count Organism: 1.1 Antibiotic Interpretation CYNTHIA Status Urine Culture - [facility] See Below For Report Urine Culture - [facility] Testing performed at [facility] O:KLEPNE Isolated Urine Culture - [facility] [place] Count Organism: 1.1 Antibiotic Interpretation CYNTHIA Status Urine Culture - [facility] See Below For Report Urine Culture - [facility] Testing performed at [facility] O:KLEPNE Isolated Urine Culture - [facility] [place] Count Organism: 1.1 Antibiotic Interpretation CYNTHIA Status Urine Culture - [facility] >100,000 Urine Culture - [facility] Testing performed at [facility] O:KLEPNE Isolated Urine Culture - [facility] [place] Count Organism: 1.1 Antibiotic Interpretation CYNTHIA Status Urine Culture - [facility] See Below For Report Urine Culture - [facility] Testing performed at [facility] O:KLEP[place] Isolated Urine Culture - [facility] [place] Count Organism: 1.1 Antibiotic Interpretation CYNTHIA Status Urine Culture - [facility] Amikacin S F Urine Culture - [facility] Testing performed at [facility] O:KLEP[place] Isolated Urine Culture - [facility] [place] Count Organism: 1.1 Antibiotic Interpretation CYNTHIA Status Urine Culture - [facility] Amoxicillin/Clavula trevor S F Urine Culture - [facility] Testing performed at [facility] O:[place] Isolated Urine Culture - [facility] [place] Count Organism: 1.1 Antibiotic Interpretation CYNTHIA Status Urine Culture - [facility] Aztreonam S F Urine Culture - [facility] Testing performed at [facility] O:[place] Isolated Urine Culture - [facility] [place] Count Organism: 1.1 Antibiotic Interpretation CYNTHIA Status Urine Culture - [facility] Ceftazidime S F Urine Culture - [facility] Testing performed at [facility] O:[place] Isolated Urine Culture - [facility] [place] Count Organism: 1.1 Antibiotic Interpretation CYNTHIA Status Urine Culture - [facility] Ceftazidime/Avibactam S F Urine Culture - [facility] Testing performed at [facility] O:[place] Isolated Urine Culture - [facility] [place] Count Organism: 1.1 Antibiotic Interpretation CYNTHIA Status Urine Culture - [facility] Ceftolozane/Tazobactam S F Urine Culture - [facility] Testing performed at [facility] O:K[place] Isolated Urine Culture - [facility] [place] Count Organism: 1.1 Antibiotic Interpretation CYNTHIA Status Urine Culture - [facility] Ciprofloxacin S F Urine Culture - [facility] Testing performed at [facility] O:[place] Isolated Urine Culture - [facility] [place] Count Organism: 1.1 Antibiotic Interpretation CYNTHIA Status Urine Culture - [facility] Ertapenem S F Urine Culture - [facility] Testing performed at [facility] O:[place] Isolated Urine Culture - [facility] [place] Count Organism: 1.1 Antibiotic Interpretation CYNTHIA Status Urine Culture - [facility] Gentamicin S F Urine Culture - [facility] Testing performed at [facility] O:[place] Isolated Urine Culture - [facility] [place] Count Organism: 1.1 Antibiotic Interpretation CYNTHIA Status Urine Culture - [facility] Levofloxacin S F Urine Culture - [facility] Testing performed at [facility] O:[place] Isolated Urine Culture - [facility] [place] Count Organism: 1.1 Antibiotic Interpretation CYNTHIA Status Urine Culture - [facility] Meropenem S F Urine Culture - [facility] Testing performed at [facility] O:[place] Isolated Urine Culture - [facility] [place] Count Organism: 1.1 Antibiotic Interpretation CYNTHIA Status Urine Culture - [facility] Meropenem/Vaborbactam S F Urine Culture - [facility] Testing performed at [facility] O:[place] Isolated Urine Culture - [facility] [place] Count Organism: 1.1 Antibiotic Interpretation CYNTHIA Status Urine Culture - [facility] Nitrofurantoin I F Urine Culture - [facility] Testing performed at [facility] O:[place] Isolated Urine Culture - [facility] [place] Count Organism: 1.1 Antibiotic Interpretation CYNTHIA Status Urine Culture - [facility] Tetracycline S F Urine Culture - [facility] Testing performed at [facility] O:[place] Isolated Urine Culture - [facility] [place] Count Organism: 1.1 Antibiotic Interpretation CYNTHIA Status Urine Culture - [facility] Tigecycline S F Urine Culture - [facility] Testing performed at [facility] O:[place] Isolated Urine Culture - [facility] [place] Count Organism: 1.1 Antibiotic Interpretation CYNTHIA Status Urine Culture - [facility] Tobramycin S F Urine Culture - [facility] Testing performed at [facility] O:[place] Isolated Urine Culture - [facility] [place] Count Organism: 1.1 Antibiotic Interpretation CYNTHIA Status Urine Culture - [facility] Ampicillin/Sulbactam S F Urine Culture - [facility] Testing performed at [facility] O:[place] Isolated Urine Culture - [facility] [place] Count Organism: 1.1 Antibiotic Interpretation CYNTHIA Status Urine Culture - [facility] Cefazolin S F Urine Culture - [facility] Testing performed at [facility] O:[place] Isolated Urine Culture - [facility] [place] Count Organism: 1.1 Antibiotic Interpretation CYNTHIA Status Urine Culture - [facility] Cefepime S F Urine Culture - [facility] Testing performed at [facility] O:[place] Isolated Urine Culture - [facility] [place] Count Organism: 1.1 Antibiotic Interpretation CYNTHIA Status Urine Culture - [facility] Ceftriaxone S F Urine Culture - [facility] Testing performed at [facility] O:[place] Isolated Urine Culture - [facility] [place] Count Organism: 1.1 Antibiotic Interpretation CYNTHIA Status Urine Culture - [facility] Cefuroxime S F Urine Culture - [facility] Testing performed at [facility] O:[place] Isolated Urine Culture - [facility] [place] Count Organism: 1.1 Antibiotic Interpretation CYNTHIA Status Urine Culture - [facility] Piperacillin/Tazoba ctam S F Urine Culture - [facility] Testing performed at [facility] O:[place] Isolated Urine Culture - [facility] [place] Count Organism: 1.1 Antibiotic Interpretation CYNTHIA Status Urine Culture - [facility] Trimethoprim/Sulfa S F Urine Culture - [facility] Testing performed at [facility] O:KLEP[place] Isolated Urine Culture - [facility] [place] Count Organism: 1.1 Antibiotic Interpretation CYNTHIA Status Performing Lab: see note ML - [facility] LB SEE REPORT - Supervisor Filter Assembly Id information not found for OBX-specific reproducer legend XR chest 1V Reviewed date:11/27/2024 12:36:13 PM Interpretation: Performing Lab: Notes/Report: Source Facility: [place] [address] XRay Report Signed Patient: RYLEE BURTON MR#: [id number] : 1975 Acct:[id number] Age/Sex: 49 / F ADM Date: 11/26/24 Loc: [place] 219-[address]: BENJY GRANADOS D.O. Ordering Physician: Cynthia Hernandez M.D. Date of Service: 11/26/24 Procedure(s): XR chest 1V Accession Number(s): [id number] cc: Nakul Swenson M.D.; Cynthia Hernandez M.D. [place] [address] Patient Name: RYLEE BURTON MRN: [id number] date: 1975 Sex: F Assigned Patient Location: [place] Current Patient Location: [place] Accession/Order Number: [id number] Exam Date: 11/26/2024 22:28 Report Date: 11/26/2024 22:54 At the request of: CYNTHIA HERNANDEZ MD Procedure: XR chest 1V Plain film chest Single view HISTORY: Hypoxia COMPARISON: 11/26/2024 FINDINGS: SUPPORT DEVICES: None POSTSURGICAL CHANGES: None HEART: Within normal limits PULMONARY FABI: Within normal limits MEDIASTINUM: Unremarkable LUNGS AND PLEURA: Left basilar atelectasis/pneumonitis. Left mid lung nodule redemonstrated. Similar to prior BONY STRUCTURES: Intact ADDITIONAL FINDINGS None XR/XR chest 1V IMPRESSION: Left basilar atelectasis/pneumonitis. Unchanged left midlung nodule. Impression dictated by: Abran Matthews M.D. 11/26/2024 10:54 PM Dictation Location: [place] [address] Electronically authenticated by: [id number] Y Date: 11/26/2024 22:54 Dictated By: Abran Matthews D.O. Signed By: 11/26/242256 DD/ 53 TD/TT: Operational Meteorologist: [place] [address] XRay Report Signed Patient: JABIER BURTON MR#: [id number] : 1975 Acct:[id number] Age/Sex: 49 / F ADM Date: 11/26/24 Loc: [place] 219-[address]: BENJY GRANADOS D.O. Ordering Physician: Cynhtia Hernandez M.D. Date of Service: 11/26/24 Procedure(s): XR chest 1V Accession Number(s): [id number] cc: Nakul Swenson M.D. ; Cynthia Hernandez M.D. [place] [id number] Patient Name: RYLEE BURTON MRN: [id number] date: 1975 Sex: F Assigned Patient Loc ation: MS Current Patient Loca tion: MS Accession/Order Numb er: [id number] Exam Date: 11/26/2024 22:28 Report Date: 11/26/2024 22:54 At the request of: CYNTHIA HERNANDEZ MD Procedure: XR chest 1V Plain film chest Sin gle view HISTORY: Hypoxia COMPARISON: 11/26/2024 FINDINGS: SUPPORT DEVICES: None POSTSURGICAL CHANGES: None HEART: Within normal limits PULMONARY FABI: With in normal limits MEDIASTINUM: Unremarkable LUNGS AND PLEURA: Le ft basilar atelectasis/pneumonitis. Left mid lung nodule redemonstrated. Marychuy lar to prior BONY STRUCTURES: Intact ADDITIONAL FINDINGS None X R/XR chest 1V IMPRESSION: Left bas ilar atelectasis/pneumonitis. Unchanged left midlung nodule. Impression dictated by: Abran Matthews M.D. 11/26/2024 10:54 PM Dictation Location: [place] [address] Electronically authenticated by: [id number] Y Date: 11/26/2024 22:54 Dictated By: Mauirzio Matthews D.O. Signed By: 11/26/242256 DD/ 53 TD/TT: Operational Meteorologist: CBC AUTO DIFF Reviewed date:11/27/2024 12:36:13 PM Interpretation: Performing Lab: Notes/Report: [facility] , White Blood Count 20.2 4.0-11.0 10 3/uL Red Blood Count 2.57 4.20-5.40 10 6/uL Hemoglobin 7.3 12.0-16.0 g/dL Hematocrit 24.2 36.0-48.0 % Mean Corpuscular Volume 94.2 81.0-99.0 fL Mean Corpuscular Hemoglobin 28.4 26.7-34.0 pg Mean Corpuscular HGB Conc 30.2 29.9-35.2 g/dL Red Cell Distribution Width 20.3 11.0-15.0 % Platelet Count 887 150-450 10 3/uL Mean Platelet Volume 9.3 9.5-13.5 fL Performing Lab: see note ML - [facility] LB MAGNESIUM Reviewed date:11/27/2024 12:36:13 PM Interpretation: Performing Lab: Notes/Report: [facility] , Magnesium 1.7 1.8-2.4 mg/dL Performing Lab: see note ML - [facility] LB PHOSPHORUS Reviewed date:11/27/2024 12:36:13 PM Interpretation: Performing Lab: Notes/Report: Comment Add to already drawn blood sample this AM [facility] , Phosphorus 6.4 2.6-4.7 mg/dL RESULTS CALLED TO JOSE ANGEL LAZO RN Performing Lab: see note - [facility] LB PROF 14(COMP METB) Reviewed date:11/27/2024 12:36:13 PM Interpretation: Performing Lab: Notes/Report: [facility] , Sodium 142 136-145 mmol/L Potassium 2.8 3.5-5.1 mmol/L RESULTS CALLED TO JOSE ANGEL LAZO RN @BY Lora Davila at 0600 Chloride 101 98-107 mmol/L Carbon Dioxide 26.7 21.0-32.0 mmol/L Anion Gap 17.1 Glucose 102 74-106 mg/dL Blood Urea Nitrogen 10.0 7.0-18.0 mg/dL Creatinine 0.54 0.55-1.02 mg/dL Estimated GFR ( Fang >60 >=60 mL/min/1.73m 2 Estimated GFR (Non- Lizabeth >60 >=60 mL/min/1.73m 2 BUN Creatinine Ratio 18.5 Calcium 9.3 8.5-10.1 mg/dL Bilirubin Total 0.8 0.2-1.0 mg/dL Aspartate Amino Transferase 19 15-37 U/L Alanine Aminotransferase 16 14-59 U/L Alkaline Phosphatase 528 46-116 U/L Total Protein 6.8 6.4-8.2 g/dL Albumin Level 0.8 3.4-5.0 g/dL Globulin 6.0 Albumin Globulin Ratio 0.1 Performing Lab: see note ML - [facility] LB VITAMIN D 25 OH Reviewed date:11/27/2024 12:36:13 PM Interpretation: Performing Lab: Notes/Report: [facility] , Vitamin D 48.0 <20 ng/mL Vit D deficient 20-<30 ng/mL Vit D insufficient 30-100 ng/mL Vit D sufficient >100 ng/mL Potential Toxicity Performing Lab: see note ML - [facility] LB Manual Differential Reviewed date:11/27/2024 12:36:13 PM Interpretation: Performing Lab: Notes/Report: [facility] , Segmented Neutrophils % Manual 80.0 43.0-75.0 Band Neutrophils % 1.0 0-5 % Lymphocytes Percent Manual 11.0 20.5-60.0 % Monocytes Percent Manual 8.0 1.7-12.0 % Eosinophils Percent Manual 0.0 0.9-7.0 % Basophils Percent Manual 0.0 0.2-2.0 % Segmented Neut Absolute Manual 16.16 1.4-6.5 10 3/uL Band Neutrophils Absolute 0.2 0.0-0.3 10 3/uL Lymphocytes Absolute Manual 2.22 1.20-3.80 10 3/uL Monocytes Absolute Manual 1.61 0.30-0.80 10 3/uL Eosinophils Absolute Manual 0.00 0.00-0.70 10 3/uL Basophils Abs Manual 0.00 0.00-0.10 1 0 3/uL Platelet Morphology Comment NORMAL RBC Morphology ABNORMAL Hypochromasia 1+ Poikilocytosis 1+ Ovalocytes 1+ Stomatocytes 1+ Performing Lab: see note [facility] LB PTH, Intact Reviewed date:11/28/2024 01:05:36 PM Interpretation: Performing Lab: Notes/Report: [facility] , PTH, Intact 11 15-65 pg/mL Performed at: [facility] [id number] Child Care Lead Teacher: Abel Finnegan PhD, Phone: [phone] Performing Lab: see note [facility] LB PTHrP (PTH-Related Peptide) Reviewed date:12/02/2024 02:16:34 PM Interpretation: Performing Lab: Notes/Report: [facility] , PTHrP (PTH-Related Peptide) <2.0 . pmol/L This test was developed and its performance characteristics determined by [facility]. It has not been cleared or approved by the Food and Drug Administration. Reference Range: All Ages: <2.0 The PTHrP assay should not be used to exclude cancer or screen tumor patients for humoral hypercalcemia of malignancy (HHM). The results should always be assessed in conjunction with the patient's medical history, clinical examination, and other findings. If test results are clinically discordant, please contact the laboratory. Performed at: [facility] [address] [place] [id number] Child Care Lead Teacher: Andres Live MD, Phone: [phone] Performing Lab: see note [facility] LB ECG 12 lead Reviewed date:11/27/2024 04:38:38 PM Interpretation: Performing Lab: Notes/Report: Source Facility: [place] [address] Electrocardiograph Report Signed Patient: RYLEE BURTON MR#: [id number] : 1975 Acct:[id number] Age/Sex: 49 / F ADM Date: 11/26/24 Loc: [place] 219-[address]: BENJY GRANADOS D.O. Ordering Physician: Benjy Granados Date of Service: 11/27/24 Procedure(s): ECG 12 lead Accession Number(s): [id number] cc: [facility] Test Date: 2024-11-27 Pat Name: RYLEE BURTON Department: Room: [facility] Gender: Female Rubber Compounder: : 1975 Requested By: [id number] Order Number: [id number] Reading MD: CHIKI LAMB Measurements Intervals Start Rate: 108 P: 36 GA: 120 QRS: 45 QRSD: 79 T: 66 QT: 335 QTc: 451 Interpretive Statements SINUS TACHYCARDIA POSSIBLE LEFT ATRIAL ENLARGEMENT [-0.1mV P WAVE IN V1/V2] ABNORMAL RHYTHM ECG Compared to ECG 10/07/2024 21:52:24 No significant changes Electronically Signed On 11-27-2024 16:05:27 EDT by CHIKI LAMB Dictated By: Chiki Lamb M.D. Signed By: 11/27/24 1605 DD/ 1149 TD/TT: Operational Meteorologist: [place] [address] Electrocardiograph Report Signed Patient: JABIER BURTON MR#: [id number] : 1975 Acct:[id number] Age/Sex: 49 / F ADM Date: 11/26/24 Loc: [place] 219-[address]: BENJY GRANADOS D.O. Ordering Physician: Benjy Granados Date of Service: 11/27/24 Procedure(s): ECG 12 lead Accession Number(s): [id number] cc: [facility] Test Date: 2024-11-27 Pat Name: RYLEE BURTON Department: 62 Room: Critical access hospital Gender: Female Rubber Compounder: : 1975 Requ ested By: [id number] Order Number: [id number] Reading MD: CHIKI LAMB Measurements Intervals Start Rate: 108 P: 36 GA: 120 QRS: 45 QRSD: 79 T: 66 QT: 335 QTc: 451 Interpretive Statements SINUS TACHYCARDIA POSSIBLE LEFT ATRIAL ENLARGEMENT [-0.1mV P WAVE IN V1/V2] ABNORMAL RHYTHM ECG Compared to ECG 09/23 21:52:24 No significant changes Electronically Key d On 11-27-2024 16:05:27 EDT by CHIKI LAMB Dictated By: Chiki Landrum M.D. Signed By: 11/27/24 1605 DD/ 1149 TD/TT: Operational Meteorologist: ANTONIO echo doppler complete Reviewed date:11/27/2024 12:36:13 PM Interpretation: Performing Lab: Notes/Report: Source Facility: [place] [address] Cardiology Report Signed Patient: RYLEE BURTON MR#: [id number] : 1975 Acct:[id number] Age/Sex: 49 / F ADM Date: 11/26/24 Loc: [place] 219-[address]: BENJY GRANADOS D.O. Ordering Physician: Cynthia Hernandez M.D. Date of Service: 11/27/24 Procedure(s): CA echo doppler complete Accession Number(s): [id number] cc: Nakul Swenson M.D.; Cynthia Hernandez M.D. Patient Name: RYLEE BURTON MR#: [id number] : 1975 Exam Date: 11/27/2024 Ordering Doctor: CYNTHIA HERNANDEZ ECHOCARDIOGRAM REPORT PROCEDURE: CA ECHO DOPPLER COMPLETE INDICATIONS: CHF COMPARISON: None. DESCRIPTION: COMPLETE ECHOCARDIOGRAM Real-time transthoracic echocardiography with 2D, M-mode, spectral and color flow Doppler performed. QUALITY: Technical quality was good. LEFT VENTRICLE: Normal chamber size. Borderline left ventricular hypertrophy. LV EF: Global left ventricular systolic function is moderately reduced; visually estimated ejection fraction is 30-35%. Diffuse hypokinesis with regional variability. DIASTOLIC: Grade 2 diastolic dysfunction. ATRIAL SEPTUM: Inadequately seen. LEFT ATRIUM: Moderate dilatation. RIGHT ATRIUM: Normal chamber size. RIGHT VENTRICLE: Normal chamber size. Normal right ventricular systolic function. TRICUSPID VALVE: Normal mobility and thickness. No stenosis with trivial regurgitation. Unable to assess right-sided pressures due to lack of measurable tricuspid regurgitation. MITRAL VALVE: Mildly thickened with normal mobility. No evidence of mitral valve stenosis. There is no mitral annular calcification. Moderate mitral regurgitation. AORTIC VALVE: Normal trileaflet appearance. No visible sclerosis. Normal leaflet mobility. No evidence of aortic valve stenosis. No aortic regurgitation. AORTIC ROOT: Normal diameter and appearance. PULMONIC VALVE: Normal thickness and mobility. No stenosis. No regurgitation. PERICARDIUM: No evidence of pericardial effusion. IVC: Collapses with inspiration. Normal size. CONCLUSION: 1. Global left ventricular systolic function is moderately reduced; visually estimated ejection fraction is 30 to 35% 2. Borderline left ventricular hypertrophy 3. Normal right ventricular size and systolic function 4. Grade 2 diastolic dysfunction 5. The left atrium is moderately dilated 6. Moderate mitral regurgitation Adult Echocardiography Procedure Report Left Ventricle LVEDD (3.7 - 5.6 cm): 4.32 cm LVESD (2.2 - 4.0 cm): 3.61 cm LVIVS thickness (0.6 - 1.2 cm): 0.90 cm LVPW thickness (0.5 - 1.0 cm): 1.03 cm e': 0.11 m/s E - e': 8.99 LVOT Max Gradient: 3.59 mm[Hg] LVOT Area (cm2): 0.95 m/s Peak Velocity (LVOT): 0.95 m/s Mean Velocity (LVOT): 0.59 m/s LVOT Diameter 2.03 cm Left Ventricular Ejection Fraction: 42.51 % Left Atrium LA Volume Index (2D A2C): 53.72 ml/m2 Left Atrium Systolic Dimension: 3.67 cm Mitral Valve MV E to A Ratio: 1.22 Mitral Valve A-Wave Peak Velocity: 0.82 m/s Mitral Valve E-Wave Peak Velocity: 1.00 m/s Right Ventricle RV Internal Diastolic Dimension: 3.69 cm Aorta AO Root Diam: 3.13 cm Aortic Valve AoV Area (Peak Yaron): 2.44 cm2, 2.44 cm2 AoV Area (VTI): 2.58 cm2, 2.58 cm2 Peak Velocity(Antegrade Flow): 1.26 m/s Peak Gradient(Antegrade Flow): 6.32 mm[Hg] Mean Velocity(Antegrade Flow): 0.87 m/s Mean Gradient(Antegrade Flow): 3.51 mm[Hg] Velocity Time Integral: 19.21 cm Tricuspid Valve Peak Velocity (Regurgitant Flow): Pulmonic Valve Peak Velocity: 0.73 m/s Peak Gradient: 2.16 mm[Hg], 2.16 mm[Hg] Right Atrium Right Atrium Systolic Pressure: 45.57 ml, 45.57 ml Dictated by: Chiki Lamb M.D. on 11/27/2024 at 10:29 Approved by: Chiki Lamb M.D. on 11/27/2024 at 10:36 Dictated By: Chiki Lamb M.D. Signed By: 11/27/24 1037 DD/ 1036 TD/TT: Operational Meteorologist: [place] [address] Cardiology Report Signed Patient: JABIER BURTON MR#: [id number] : 1975 Acct:[id number] Age/Sex: 49 / F ADM Date: 11/26/24 Loc: MS 219-[address]: BENJY GRANADOS D.O. Ordering Physician: Cynthia Hernandez M.D. Date of Service: 11/27/24 Procedure(s): CA ech o doppler complete Accession Number(s): [id number] cc: Nakul Swenson M.D. ; Cynthia Hernandez M.D. Patient Name: RYLEE BURTON MR#: [id number] : 1975 Exam Date: 11/27/2024 Ordering Doctor: IZAIHA HERNANDEZ ECHOCARDIOGRAM REPORT PROCEDURE: CA ECHO D OPPLER COMPLETE INDICATIONS: CHF COMPARISON: None. DESCRIPTION: COMPLET E ECHOCARDIOGRAM Real-time transthoracic echocardiography wit h 2D, M-mode, spectral and color flow Doppler performed. QUALITY: Technical q uality was good. LEFT VENTRICLE: Norm al chamber size. Borderline left ventricular hypertrophy. LV EF: Global left ventricular systolic function is moderately reduced; visually estimated ejection fraction is 30-35%. Diffuse hypokinesis with regional variability. DIASTOLIC: Grade 2 diastolic dysfunction. ATRIAL SEPTUM: Inadequately seen. LEFT ATRIUM: Moderat e dilatation. RIGHT ATRIUM: Normal chamber size. RIGHT VENTRICLE: Nor mal chamber size. Normal right ventricular systolic function. TRICUSPID VALVE: Nor mal mobility and thickness. No stenosis with trivial regurgitation. Unabl e to assess right-sided pressures due to lack of measurable tricuspid regurgitation. MITRAL VALVE: Mildly thickened with normal mobility. No evidence of mitral valve stenosi s. There is no mitral annular calcification. Moderate mitral regurgitation. AORTIC VALVE: Normal trileaflet appearance. No visible sclerosis. Normal leaflet mobility. No evidence of aortic valve stenosis. No aortic regurgitation. AORTIC ROOT: Normal diameter and appearance. PULMONIC VALVE: Norm al thickness and mobility. No stenosis. No regurgitation. PERICARDIUM: No evid ence of pericardial effusion. IVC: Collapses with inspiration. Normal size. CONCLUSION: 1. Global left ventr icular systolic function is moderately reduced; visually estimated ejection fraction is 30 to 35% 2. Borderline left ventricular hypertrophy 3. Normal right ventricular size and systolic function 4. Grade 2 diastolic dysfunction 5. The left atrium i s moderately dilated 6. Moderate mitral regurgitation Adult Echocardiograp hy Procedure Report Left Ventricle LVEDD (3.7 - 5.6 cm) : 4.32 cm LVESD (2.2 - 4.0 cm) : 3.61 cm LVIVS thickness (0.6 - 1.2 cm): 0.90 cm LVPW thickness (0.5 - 1.0 cm): 1.03 cm e': 0.11 m/s E - e': 8.99 LVOT Max Gradient: 3 .59 mm[Hg] LVOT Area (cm2): 0.95 m/s Peak Velocity (LVOT) : 0.95 m/s Mean Velocity (LVOT) : 0.59 m/s LVOT Diameter 2.03 cm Left Ventricular Eje ction Fraction: 42.51 % Left Atrium LA Volume Index (2D A2C): 53.72 ml/m2 Left Atrium Systolic Dimension: 3.67 cm Mitral Valve MV E to A Ratio: 1.22 Mitral Valve A-Wave Peak Velocity: 0.82 m/s Mitral Valve E-Wave Peak Velocity: 1.00 m/s Right Ventricle RV Internal Diastoli c Dimension: 3.69 cm Aorta AO Root Diam: 3.13 cm Aortic Valve AoV Area (Peak Yaron): 2.44 cm2, 2.44 cm2 AoV Area (VTI): 2.58 cm2, 2.58 cm2 Peak Velocity(Antegr celine Flow): 1.26 m/s Peak Gradient(Antegr celine Flow): 6.32 mm[Hg] Mean Velocity(Antegr celine Flow): 0.87 m/s Mean Gradient(Antegr celine Flow): 3.51 mm[Hg] Velocity Time Integr al: 19.21 cm Tricuspid Valve Peak Velocity (Regur gitant Flow): Pulmonic Valve Peak Velocity: 0.73 m/s Peak Gradient: 2.16 mm[Hg], 2.16 mm[Hg] Right Atrium Right Atrium Systoli c Pressure: 45.57 ml, 45.57 ml Dictated by: Chiki Lamb M.D. on 11/27/2024 at 10:29 Approved by: Chiki Lamb M.D. on 11/27/2024 at 10:36 Dictated By: Chiki Landrum M.D. Signed By: 11/27/24 1037 DD/ 1036 TD/TT: Operational Meteorologist: MAGNESIUM Reviewed date:11/28/2024 01:05:35 PM Interpretation: Performing Lab: Notes/Report: [facility] , Magnesium 1.8 1.8-2.4 mg/dL Performing Lab: see note ML - [facility] LB PHOSPHORUS Reviewed date:11/28/2024 01:05:35 PM Interpretation: Performing Lab: Notes/Report: [facility] , Phosphorus 4.3 2.6-4.7 mg/dL Performing Lab: see note ML - [facility] LB PROF 14(COMP METB) Reviewed date:11/28/2024 01:05:35 PM Interpretation: Performing Lab: Notes/Report: [facility] , Sodium 135 136-145 mmol/L Potassium 3.9 3.5-5.1 mmol/L Chloride 99 98-107 mmol/L Carbon Dioxide 25.4 21.0-32.0 mmol/L Anion Gap 14.5 Glucose 108 74-106 mg/dL Blood Urea Nitrogen 14.0 7.0-18.0 mg/dL Creatinine 0.56 0.55-1.02 mg/dL Estimated GFR ( Fang >60 >=60 mL/min/1.73m 2 Estimated GFR (Non- Lizabeth >60 >=60 mL/min/1.73m 2 BUN Creatinine Ratio 25.0 Calcium 8.5 8.5-10.1 mg/dL Bilirubin Total 0.8 0.2-1.0 mg/dL Aspartate Amino Transferase 22 15-37 U/L Alanine Aminotransferase 20 14-59 U/L Alkaline Phosphatase 516 46-116 U/L Total Protein 6.4 6.4-8.2 g/dL Albumin Level 0.8 3.4-5.0 g/dL Globulin 5.6 Albumin Globulin Ratio 0.1 Performing Lab: see note - [facility] CBC no Diff (Hemogram) Reviewed date:11/28/2024 01:05:36 PM Interpretation: Performing Lab: Notes/Report: [facility] , White Blood Count 20.6 4.0-11.0 10 3/uL Red Blood Count 2.24 4.20-5.40 10 6/uL Hemoglobin 6.4 12.0-16.0 g/dL RESULTS CALLED TO Jaimee Montez RN @BY Gurmeet Rocha MLT at 0543 Hematocrit 21.3 36.0-48.0 % RESULTS CALLED TO Hayesdwight Montez RN @BY FLAKITO StocktonT at 0543 Mean Corpuscular Volume 95.1 81.0-99.0 fL Mean Corpuscular Hemoglobin 28.6 26.7-34.0 pg Mean Corpuscular HGB Conc 30.0 29.9-35.2 g/dL Red Cell Distribution Width 20.5 11.0-15.0 % Platelet Count 928 150-450 10 3/uL Mean Platelet Volume 9.4 9.5-13.5 fL Performing Lab: see note - [facility] LB CT abdomen pelvis wo con Reviewed date:11/26/2024 01:00:04 PM Interpretation: Performing Lab: Notes/Report: Source Facility: [facility]-[address] [place] [address] [place] [address] CT Scan Report Signed Patient: RYLEE BURTON MR#: [id number] : 1975 Acct:[id number] Age/Sex: 49 / F ADM Date: 11/26/24 Loc: ER Attending Dr: Ordering Physician: Alejandro Horowitz Date of Service: 11/26/24 Procedure(s): CT abdomen pelvis wo/w con Accession Number(s): [id number] cc: Nakul Sewnson M.D. [address] [address] Patient Name: RYLEE BURTON MRN: [id number] date: 1975 Sex: F Assigned Patient Location: ED.MAIN Current Patient Location: ED.MAIN Accession/Order Number: [id number] Exam Date: 11/26/2024 09:35 Report Date: 11/26/2024 10:36 At the request of: ALEJANDRO HOROWITZ DO Procedure: CT abdomen pelvis wo/w con CLINICAL HISTORY: left flank pain since last night. Diffuse bone pain. H/o JADEN nodule CT CHEST WITH INTRAVENOUS CONTRAST: COMPARISON: 10/05/2024 TECHNIQUE: Spiral images were obtained through the chest following intravenous administration of 88 mL of Omnipaque 300. Images were reviewed using both narrow and wide window settings. This CT exam was performed using one or more following dose reduction techniques: Automated exposure control, adjustment of the mA and/or kV according to patient size, or use of iterative reconstruction technique. FINDINGS: The heart is top normal in size. There is no pericardial effusion. Coronary disease is noted. No aortic aneurysm or dissection is seen. Prevascular lymph nodes are still present though decreasing in size with short axis dimension up to 1 cm. There are still bilateral axillary lymph nodes, right greater than left with short axis dimension up to 15 mm, also minimally smaller. Left supraclavicular adenopathy is also again noted. There is a small hiatal hernia. The bony structures are intact. There is mild atelectasis and/or scarring. There is no developing consolidation, pleural effusion or pneumothorax. There is redemonstration of a left upper lobe noncalcified pulmonary nodule measuring approximately 13 mm in size. This is unchanged. CT/CT abdomen pelvis wo/w con IMPRESSION: CONTINUED MEDIASTINAL, LEFT SUPRACLAVICULAR AND AXILLARY ADENOPATHY, MINIMALLY IMPROVED. ATELECTASIS AND SCARRING. SIMILAR LEFT UPPER LOBE PULMONARY NODULE. SMALL HIATAL HERNIA. CT ABDOMEN AND PELVIS WITHOUT AND WITH INTRAVENOUS CONTRAST COMPARISON: 10/08/2024 Spiral images were obtained through the abdomen and pelvis before and after intravenous administration of 80 mL of Omnipaque 300. [address] CT exam was performed using one or more following dose reduction techniques: Automated exposure control, adjustment of the mA and/or kV according to patient size, or use of iterative reconstruction technique. Patient is status post cholecystectomy. There is mild intra and extrahepatic biliary dilatation. No common duct stones are identified. No intrahepatic masses are seen though there may be minimal focal fat near the fossa of the ligamentum teres. The spleen is top normal in size measuring up to 13 cm in craniocaudal dimension. The pancreas shows no acute findings. Adrenal limb thickening is again seen on the left. The right kidney is slightly ptotic. Precontrast, no renal, ureteral or bladder stones are seen. Following contrast administration, the renal nephrograms are symmetric. No hydronephrosis is noted. There are small renal cysts. There is atherosclerotic plaque involving the aorta and iliac arteries. There are continued enlarged abdominal lymph nodes, not significant changed. There is minor stranding within the mesentery and a trace amount free fluid. No distended small bowel loops are seen. There is moderate stool within the colon, greater on the right. There is some old contrast within the colon on the right. Subtle levoscoliotic curvature and minor degenerative change at the spine. There is stable L1 compression deformity. Images through the pelvis show nondistended small bowel. There is moderate distal colonic stool. There is no prominent diverticular disease. The appendix is reported to be surgically absent. There are Essure sterilization inserts. The urinary bladder shows no abnormalities for the degree of distention. There may be a trace amount of dependent free fluid. There is minor stranding within the mesentery and subcutaneous fat suggesting edema. Impression: TINY RENAL CYSTS. NO OBSTRUCTIVE UROPATHY OR STONE DISEASE. CONTINUED ABDOMINAL LYMPHADENOPATHY. MODERATE COLONIC STOOL. MILD SUBCUTANEOUS AND MESENTERIC EDEMA. TRACE AMOUNT FREE FLUID. NO OTHER ACUTE FINDINGS. Impression dictated by: Iraida Bach M.D. 11/26/2024 10:36 AM Dictation Location: [employer] Electronically authenticated by: [id number] Y Date: 11/26/2024 10:36 Dictated By: Iraida Bach M.D. Signed By: 11/26/24 1039 DD/ 1036 TD/TT: Operational Meteorologist: The [address] [address] [address] Scan Report Signed Patient: JABIER BURTON MR#: [id number] : 1975 Acct:[id number] Age/Sex: 49 / F ADM Date: 11/26/24 Loc: ER Attending Dr: Ordering Physician: Alejandro Horowitz Date of Service: 11/26/24 Procedure(s): CT abd omen pelvis wo/w con Accession Number(s): [id number] cc: Nakul Swenson M.D. [place] [id number] Patient Name: RYLEE BURTON MRN: [id number] date: 1975 Sex: F Assigned Patient Loc ation: ED.MAIN Current Patient Loca tion: ED.MAIN Accession/Order Numb er: [id number] Exam Date: 11/26/2024 09:35 Report Date: 11/26/2024 10:36 At the request of: ALEJANDRO HOROWITZ DO Procedure: CT abdome n pelvis wo/w con CLINICAL HISTORY: le ft flank pain since last night. Diffuse bone pain. H/o JADEN nodule CT CHEST WITH INTRAV ENOUS CONTRAST: COMPARISON: 10/05/2024 TECHNIQUE: Spiral im ages were obtained through the chest following intravenous administ ration of 88 mL of Omnipaque 300. Images were reviewed using both narrow an d wide window settings. This CT exam was performed using one or more followin g dose reduction techniques: Automated exposure control, adjustment of the mA and/or kV according to patient size, or use of iterative reconstruction technique. FINDINGS: The heart is top normal in size. There is no pericardial effusion. Coronary disease is noted. No aortic aneurysm or dissection is seen. Prevascular lymph no giuseppe are still present though decreasing in size with short axis dimension up to 1 cm. There are still bilateral axillary lymph nodes, right greater than l eft with short axis dimension up to 15 mm, also minimally smaller. Left supraclavicular adenopathy is also again noted. There is a small hiatal hernia. The bony structures are intact. There is mild atelec tasis and/or scarring. There is no developing consolidation, pleur al effusion or pneumothorax. There is redemonstration of a left upper lobe noncalcified pulmonary nodule measuring approximately 13 mm in size. This is unchanged. C T/CT abdomen pelvis wo/w con IMPRESSION: CONTINUED MEDIASTINA L, LEFT SUPRACLAVICULAR AND AXILLARY ADENOPATHY, MINIMALLY IMPROVED. ATELECTASIS AND SCARRING. SIMILAR LEFT UPPER L OBE PULMONARY NODULE. SMALL HIATAL HERNIA. CT ABDOMEN AND PELVI S WITHOUT AND WITH INTRAVENOUS CONTRAST COMPARISON: 10/08/2024 Spiral images were obtained through the abdomen and pelvis before and after intravenous administ ration of 80 mL of Omnipaque 300. This CT exam was performed using one or more following dose reduction techniques: Automated exposure control, adjustment of the mA and/or kV according to patient size, or use of iterative reconstruction technique. Patient is status po st cholecystectomy. There is mild intra and extrahepatic biliary dilatation. No common duct stones are identified. No intrahepatic masses are seen thou gh there may be minimal focal fat near the fossa of the ligamentum teres. Th e spleen is top normal in size measuring up to 13 cm in craniocaudal dimensi on. The pancreas shows no acute findings. Adrenal limb thickening is again seen on the left. The right kidney is slightly ptotic. Precontrast, no matthew l, ureteral or bladder stones are seen. Following contrast administrat ion, the renal nephrograms are symmetric. No hydronephrosis is no corona. There are small renal cysts. There is atheroscler otic plaque involving the aorta and iliac arteries. There are continued enlarg ed abdominal lymph nodes, not significant changed. There is minor stranding w ithin the mesentery and a trace amount free fluid. No distended small maryann l loops are seen. There is moderate stool within the colon, greater on th e right. There is some old contrast within the colon on the right. Subtle levoscoliotic curvature and minor degenerative change at the spine. There is stable L1 compression deformity. Images through the p brionna show nondistended small bowel. There is moderate distal colonic stool . There is no prominent diverticular disease. The appendix is reported to be surgically absent. There are Essure sterilization inserts. The urinary bladder shows no abnormalities for the degree of distention. There ma y be a trace amount of dependent free fluid. There is minor stranding with in the mesentery and subcutaneous fat suggesting edema. Impression: TINY RENAL CYSTS. NO OBSTRUCTIVE UROPA THY OR STONE DISEASE. CONTINUED ABDOMINAL LYMPHADENOPATHY. MODERATE COLONIC STOOL. MILD SUBCUTANEOUS AN D MESENTERIC EDEMA. TRACE AMOUNT FREE FLUID. NO OTHER ACUTE FINDINGS. Impression dictated by: Iraida Bach M.D. 11/26/2024 10:36 AM Dictation Location: [place] [address] Electronically authenticated by: [id number] Y Date: 11/26/2024 10:36 Dictated By: Iraida Bach M.D. Signed By: 11/26/24 1039 DD/ 1036 TD/TT: Operational Meteorologist: CT CHEST W CON Reviewed date:11/26/2024 01:00:04 PM Interpretation: Performing Lab: Notes/Report: Source Facility: [place] [address] CT Scan Report Signed Patient: RYLEE BURTON MR#: [id number] : 1975 Acct:[id number] Age/Sex: 49 / F ADM Date: 11/26/24 Loc: ER Attending Dr: Ordering Physician: Alejandro Horowitz Date of Service: 11/26/24 Procedure(s): CT chest w con Accession Number(s): [id number] cc: Nakul Swenson M.D. [place] [address] Patient Name: RYLEE BURTON MRN: [id number] date: 1975 Sex: F Assigned Patient Location: ED.MAIN Current Patient Location: ED.MAIN Accession/Order Number: [id number] Exam Date: 11/26/2024 09:35 Report Date: 11/26/2024 10:36 At the request of: ALEJANDRO HOROWITZ DO Procedure: CT abdomen pelvis wo/w con CLINICAL HISTORY: left flank pain since last night. Diffuse bone pain. H/o JADEN nodule CT CHEST WITH INTRAVENOUS CONTRAST: COMPARISON: 10/05/2024 TECHNIQUE: Spiral images were obtained through the chest following intravenous administration of 88 mL of Omnipaque 300. Images were reviewed using both narrow and wide window settings. This CT exam was performed using one or more following dose reduction techniques: Automated exposure control, adjustment of the mA and/or kV according to patient size, or use of iterative reconstruction technique. FINDINGS: The heart is top normal in size. There is no pericardial effusion. Coronary disease is noted. No aortic aneurysm or dissection is seen. Prevascular lymph nodes are still present though decreasing in size with short axis dimension up to 1 cm. There are still bilateral axillary lymph nodes, right greater than left with short axis dimension up to 15 mm, also minimally smaller. Left supraclavicular adenopathy is also again noted. There is a small hiatal hernia. The bony structures are intact. There is mild atelectasis and/or scarring. There is no developing consolidation, pleural effusion or pneumothorax. There is redemonstration of a left upper lobe noncalcified pulmonary nodule measuring approximately 13 mm in size. This is unchanged. CT/CT chest w con IMPRESSION: CONTINUED MEDIASTINAL, LEFT SUPRACLAVICULAR AND AXILLARY ADENOPATHY, MINIMALLY IMPROVED. ATELECTASIS AND SCARRING. SIMILAR LEFT UPPER LOBE PULMONARY NODULE. SMALL HIATAL HERNIA. CT ABDOMEN AND PELVIS WITHOUT AND WITH INTRAVENOUS CONTRAST COMPARISON: 10/08/2024 Spiral images were obtained through the abdomen and pelvis before and after intravenous administration of 80 mL of Omnipaque 300. [address] CT exam was performed using one or more following dose reduction techniques: Automated exposure control, adjustment of the mA and/or kV according to patient size, or use of iterative reconstruction technique. Patient is status post cholecystectomy. There is mild intra and extrahepatic biliary dilatation. No common duct stones are identified. No intrahepatic masses are seen though there may be minimal focal fat near the fossa of the ligamentum teres. The spleen is top normal in size measuring up to 13 cm in craniocaudal dimension. The pancreas shows no acute findings. Adrenal limb thickening is again seen on the left. The right kidney is slightly ptotic. Precontrast, no renal, ureteral or bladder stones are seen. Following contrast administration, the renal nephrograms are symmetric. No hydronephrosis is noted. There are small renal cysts. There is atherosclerotic plaque involving the aorta and iliac arteries. There are continued enlarged abdominal lymph nodes, not significant changed. There is minor stranding within the mesentery and a trace amount free fluid. No distended small bowel loops are seen. There is moderate stool within the colon, greater on the right. There is some old contrast within the colon on the right. Subtle levoscoliotic curvature and minor degenerative change at the spine. There is stable L1 compression deformity. Images through the pelvis show nondistended small bowel. There is moderate distal colonic stool. There is no prominent diverticular disease. The appendix is reported to be surgically absent. There are Essure sterilization inserts. The urinary bladder shows no abnormalities for the degree of distention. There may be a trace amount of dependent free fluid. There is minor stranding within the mesentery and subcutaneous fat suggesting edema. Impression: TINY RENAL CYSTS. NO OBSTRUCTIVE UROPATHY OR STONE DISEASE. CONTINUED ABDOMINAL LYMPHADENOPATHY. MODERATE COLONIC STOOL. MILD SUBCUTANEOUS AND MESENTERIC EDEMA. TRACE AMOUNT FREE FLUID. NO OTHER ACUTE FINDINGS. Impression dictated by: Iraida Bach M.D. 11/26/2024 10:36 AM Dictation Location: [place] [address] Electronically authenticated by: [id number] Y Date: 11/26/2024 10:36 Dictated By: Iraida Bach M.D. Signed By: 11/26/24 1039 DD/ 1036 TD/TT: Operational Meteorologist: [place] [address] CT Scan Report Signed Patient: JABIER BURTON MR#: [id number] : 1975 Acct:[id number] Age/Sex: 49 / F ADM Date: 11/26/24 Loc: ER Attending Dr: Ordering Physician: Alejandro Horowitz Date of Service: 11/26/24 Procedure(s): CT ban st w con Accession Number(s): [id number] cc: Nakul Swenson M.D. [place] [id number] Patient Name: RYLEE BURTON MRN: [id number] date: 1975 Sex: F Assigned Patient Loc ation: ED.MAIN Current Patient Loca tion: ED.MAIN Accession/Order Numb er: [id number] Exam Date: 11/26/2024 09:35 Report Date: 11/26/2024 10:36 At the request of: ALEJANDRO HOROWITZ DO Procedure: CT abdome n pelvis wo/w con CLINICAL HISTORY: le ft flank pain since last night. Diffuse bone pain. H/o JADEN nodule CT CHEST WITH INTRAV ENOUS CONTRAST: COMPARISON: 10/05/2024 TECHNIQUE: Spiral im ages were obtained through the chest following intravenous administ ration of 88 mL of Omnipaque 300. Images were reviewed using both narrow an d wide window settings. This CT exam was performed using one or more followin g dose reduction techniques: Automated exposure control, adjustment of the mA and/or kV according to patient size, or use of iterative reconstruction technique. FINDINGS: The heart is top normal in size. There is no pericardial effusion. Coronary disease is noted. No aortic aneurysm or dissection is seen. Prevascular lymph no giuseppe are still present though decreasing in size with short axis dimension up to 1 cm. There are still bilateral axillary lymph nodes, right greater than l eft with short axis dimension up to 15 mm, also minimally smaller. Left supraclavicular adenopathy is also again noted. There is a small hiatal hernia. The bony structures are intact. There is mild atelec tasis and/or scarring. There is no developing consolidation, pleur al effusion or pneumothorax. There is redemonstration of a left upper lobe noncalcified pulmonary nodule measuring approximately 13 mm in size. This is unchanged. C T/CT chest w con IMPRESSION: CONTINUED MEDIASTINA L, LEFT SUPRACLAVICULAR AND AXILLARY ADENOPATHY, MINIMALLY IMPROVED. ATELECTASIS AND SCARRING. SIMILAR LEFT UPPER L OBE PULMONARY NODULE. SMALL HIATAL HERNIA. CT ABDOMEN AND PELVI S WITHOUT AND WITH INTRAVENOUS CONTRAST COMPARISON: 10/08/2024 Spiral images were obtained through the abdomen and pelvis before and after intravenous administ ration of 80 mL of Omnipaque 300. [address] exam was performed using one or more following dose reduction techniques: Automated exposure control, adjustment of the mA and/or kV according to patient size, or use of iterative reconstruction technique. Patient is status po st cholecystectomy. There is mild intra and extrahepatic biliary dilatation. No common duct stones are identified. No intrahepatic masses are seen thou gh there may be minimal focal fat near the fossa of the ligamentum teres. Th e spleen is top normal in size measuring up to 13 cm in craniocaudal dimensi on. The pancreas shows no acute findings. Adrenal limb thickening is again seen on the left. The right kidney is slightly ptotic. Precontrast, no matthew l, ureteral or bladder stones are seen. Following contrast administrat ion, the renal nephrograms are symmetric. No hydronephrosis is no corona. There are small renal cysts. There is atheroscler otic plaque involving the aorta and iliac arteries. There are continued enlarg ed abdominal lymph nodes, not significant changed. There is minor stranding w ithin the mesentery and a trace amount free fluid. No distended small maryann l loops are seen. There is moderate stool within the colon, greater on th e right. There is some old contrast within the colon on the right. Subtle levoscoliotic curvature and minor degenerative change at the spine. There is stable L1 compression deformity. Images through the p brionna show nondistended small bowel. There is moderate distal colonic stool . There is no prominent diverticular disease. The appendix is reported to be surgically absent. There are Essure sterilization inserts. The urinary bladder shows no abnormalities for the degree of distention. There ma y be a trace amount of dependent free fluid. There is minor stranding with in the mesentery and subcutaneous fat suggesting edema. Impression: TINY RENAL CYSTS. NO OBSTRUCTIVE UROPA THY OR STONE DISEASE. CONTINUED ABDOMINAL LYMPHADENOPATHY. MODERATE COLONIC STOOL. MILD SUBCUTANEOUS AN D MESENTERIC EDEMA. TRACE AMOUNT FREE FLUID. NO OTHER ACUTE FINDINGS. Impression dictated by: Iraida Bach M.D. 11/26/2024 10:36 AM Dictation Location: [place] [address] Electronically authenticated by: [id number] Y Date: 11/26/2024 10:36 Dictated By: Iraida Bach M.D. Signed By: 11/26/24 1039 DD/ 1036 TD/TT: Operational Meteorologist: PROF Pope(COMP METB) Reviewed date:11/02/2024 07:54:11 PM Interpretation: Performing Lab: Notes/Report: [facility] , Sodium 137 136-145 mmol/L Potassium 4.3 [...] Performing Lab: see note ML - [facility] LB CBC AUTO DIFF Reviewed date:11/02/2024 07:54:11 PM Interpretation: Performing Lab: Notes/Report: [facility] , White Blood Count 15.5 4.0-11.0 10 [...] Performing Lab: see note ML - [facility] LB Manual Differential Reviewed date:10/27/2024 01:04:56 PM Interpretation: Performing Lab: Notes/Report: [facility] , Segmented Neutrophils % Manual 77.0 43.0-75.0 [...] Performing Lab: see note ML - [facility] LB SARS-CoV-2 Ag* Reviewed date:10/08/2024 05:20:20 PM Interpretation: Performing Lab: Notes/Report: [facility] , SARS-CoV-2 Ag NEGATIVE NEGATIVE This test [...] Performing Lab: see note ML - [facility] LB PROF 14(COMP METB) Reviewed date:10/08/2024 05:20:19 PM Interpretation: Performing Lab: Notes/Report: [facility] , Sodium 140 136-145 mmol/L Potassium 3.5 [...] 0.2 Performing Lab: see note ML - [facility] INFLUENZA A AND B AG Reviewed date:10/08/2024 05:20:19 PM Interpretation: Performing Lab: Notes/Report: [facility] , Influenza Virus A Antigen Negative Negative [...] Performing Lab: see note ML - [facility] LB CPK Reviewed date:10/08/2024 05:20:19 PM Interpretation: Performing Lab: Notes/Report: [facility] , Creatine Kinase 10 26-192 U/L Performing Lab: see note ML - [facility] LB CBC AUTO DIFF Reviewed date:10/08/2024 05:20:19 PM Interpretation: Performing Lab: Notes/Report: [facility] , White Blood Count 22.2 4.0-11.0 10 [...] Performing Lab: see note ML - [facility] LB ECG 12 lead Reviewed date:10/11/2024 03:08:40 PM Interpretation: Performing Lab: Notes/Report: Source Facility: [facility]-[address] [place] [address] [place] [address] Electrocardiograph Report Signed Patient: RYLEE BURTON MR#: [id number] : 1975 Acct:[id number] Age/Sex: 49 / F ADM Date: 10/07/24 Loc: MS 202-[address]: Cynthia Hernandez M.D. Ordering Physician: Araceli Jonas M.D. 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 Signed By: 10/10/24 0946 DD/ 51 TD/TT: Operational Meteorologist: [place] [address] Electrocardiograph Report Signed Patient: JABIER BURTON MR#: [id number] : 1975 Acct:[id number] Age/Sex: 49 / F ADM Date: 10/07/24 Loc: MS - Attending Dr: Cynthia Hernandez M.D. Ordering Physician: Araceli Jonas M.D. Date of Service: 10/07/24 Procedure(s): ECG 12 lead Accession Number(s): [id number] cc: [facility] Test Date: 2024-10-07 Pat Name: RYLEE BURTON Department: 62 Room: - Gender: Female Rubber Compounder: : 1975 Requ ested By: 2452 Order Number: [id number] Reading MD: CHIKI LAMB Measurements Intervals Start Rate: 122 P: 78 GA: 154 QRS: 86 QRSD: 72 T: 81 QT: 314 QTc: 387 Interpretive Statements 1120 Sinus tachycardia 9140 abnormal rhy thm ECG Compared to ECG 09/23 17:57:24 No significant changes Electronically Key d On 10-10-2024 9:45:53 EDT by CHIKI LAMB Dictated By: Chiki Landrum M.D. Signed By: 10/10/2446 DD/ 51 TD/TT: Operational Meteorologist: ECG 12 lead Reviewed date:10/11/2024 03:08:40 PM Interpretation: Performing Lab: Notes/Report: Source Facility: [place] [address] Electrocardiograph Report Signed Patient: RYLEE BURTON MR#: [id number] : 1975 Acct:[id number] Age/Sex: 49 / F ADM Date: 10/07/24 Loc: MS - Attending Dr: Cynthia Hernandez M.D. Ordering Physician: Genet Nam M.D. 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 Signed By: 10/10/2446 DD/ 56 TD/TT: Operational Meteorologist: [place] [address] Electrocardiograph Report Signed Patient: JABIER BURTON MR#: [id number] : 1975 Acct:[id number] Age/Sex: 49 / F ADM Date: 10/07/24 Loc: MS 202-[address]: Cynthia Hernandez M.D. Ordering Physician: Genet Nam M.D. 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 ECG Compared to ECG 08/25 17:35:02 No significant changes Electronically Key d On 10-10-2024 9:45:42 EDT by CHIKI LAMB Dictated By: Chiki Landrum M.D. Signed By: 10/10/24 0946 DD/ 1757 TD/TT: Operational Meteorologist: Manual Differential Reviewed date:10/08/2024 05:20:20 PM Interpretation: Performing Lab: Notes/Report: [facility] , Segmented Neutrophils % Manual [...] 2+ Performing Lab: see note ML - [facility] LB CBC AUTO DIFF Reviewed date:09/24/2024 07:13:51 PM Interpretation: Performing Lab: Notes/Report: [facility] , White Blood Count 19.9 [...] 8.6 9.5-13.5 fL Performing Lab: see note [facility] LB PROF 14(COMP METB) Reviewed date:09/21/2024 01:12:51 PM Interpretation: Performing Lab: Notes/Report: [facility] , Sodium 140 136-145 mmol/L [...] 0.3 Performing Lab: see note ML - [facility] LB CT abdomen pelvis w con Reviewed date:09/21/2024 01:12:51 PM Interpretation: Performing Lab: Notes/Report: Source Facility: [facility]-[address] [place] [address] CT Scan Report Signed Patient: RYLEE BURTON MR#: [id number] : 1975 Acct:[id number] Age/Sex: 49 / F ADM Date: 09/15/24 Loc: MS 202-[address]: Nakul Swenson M.D. Ordering Physician: Nakul Swenson M.D. Date of Service: 09/21/24 Procedure(s): CT abdomen pelvis w con Accession Number(s): [id number] cc: Domi Altamirano NP [place] [address] Patient Name: RYLEE BURTON MRN: [id number] date: 1975 Sex: F Assigned Patient Location: [place] Current Patient Location: [place] Accession/Order Number: [id number] Exam Date: 09/21/2024 10:41 Report Date: 09/21/2024 10:48 At the request of: NAKUL SWENSON MD Procedure: CT abdomen pelvis w [...] Higuera M.D. 09/21/2024 10:48 AM Dictation Location: [place] [address] Electronically authenticated by: [id number] Y Date: 09/21/2024 10:48 Dictated By: Bonilla Higuera M.D. Signed By: 09/21/24 1051 DD/ 1048 TD/TT: Operational Meteorologist: [place] [address] CT Scan Report Signed Patient: JABIER BURTON MR#: [id number] : 1975 Acct:[id number] Age/Sex: 49 / F ADM Date: 09/15/24 Loc: MS - Attending Dr: Irlanda Swenson M.D. Ordering Physician: Nakul Swenson M.D. Date of Service: 09/21/24 Procedure(s): CT abd omen pelvis w con Accession Number(s): [id number] cc: Domi Altamirano NP [place] [address] Patient Name: RYLEE BURTON MRN: [id number] date: 1975 Sex: F Assigned Patient Loc ation: MS Current Patient Loca tion: MS Accession/Order Numb er: [id number] Exam Date: 09/21/2024 10:41 Report Date: 09/21/2024 10:48 At the request of: NAKUL SWENSON MD Procedure: CT abdome n pelvis [...] Higuera M.D. 09/21/2024 10:48 AM Dictation Location: [place] [address] Electronically authenticated by: [id number] Y Date: 09/21/2024 10:48 Dictated By: Karina Higuera M.D. Signed By: 09/21/24 1051 DD/ 1048 TD/TT: Operational Meteorologist: PROF Pope(COMP METB) Reviewed date:09/21/2024 01:12:51 PM Interpretation: Performing Lab: Notes/Report: [facility] , Sodium 140 136-145 mmol/L [...] Globulin Ratio 0.3 Performing Lab: see note [facility] LB LIPASE Reviewed date:09/21/2024 01:12:51 PM Interpretation: Performing Lab: Notes/Report: Comment use am blood for amylase lipase? [facility] , Lipase 22.0 16.0-77.0 U/L Performing Lab: see note [facility] LB CBC AUTO DIFF Reviewed date:09/21/2024 01:12:51 PM Interpretation: Performing Lab: Notes/Report: [facility] , White Blood Count 22.7 [...] 10 3/uL Performing Lab: see note - [facility] LB AMYLASE Reviewed date:09/21/2024 01:12:51 PM Interpretation: Performing Lab: Notes/Report: Comment use am blood for amylase lipase? [facility] , Amylase 15 25-115 U/L Performing Lab: see note - [facility] LB Manual Differential Reviewed date:09/21/2024 01:12:51 PM Interpretation: Performing Lab: Notes/Report: [facility] , Segmented Neutrophils % Manual [...] 1+ Anisocytosis 1+ Performing Lab: see note [facility] LB PROF 14(COMP METB) Reviewed date:09/21/2024 01:12:51 PM Interpretation: Performing Lab: Notes/Report: [facility] , Sodium 141 136-145 mmol/L [...] Ratio 0.3 Performing Lab: see note - [facility] LB CBC AUTO DIFF Reviewed date:09/21/2024 01:12:51 PM Interpretation: Performing Lab: Notes/Report: [facility] , White Blood Count 21.8 4.0-11.0 10 [...] 9.5-13.5 fL Performing Lab: see note - [facility] LB Blood Culture 2 Reviewed date:09/23/2024 07:04:33 PM Interpretation: Performing Lab: Notes/Report: PEDS BOTTLE [facility] , Blood Culture 2 See Below For Report Blood Culture 2 NG5D NO GROWTH AT 5 DAYS.^NO GROWTH AT 5 DAYS. Performing Lab: see note - [facility] LB Blood Culture 1 Reviewed date:09/23/2024 07:04:33 PM Interpretation: Performing Lab: Notes/Report: PEDS BOTTLE [facility] , Blood Culture 1 See Below For Report Blood Culture 1 NG5D NO GROWTH AT 5 DAYS.^NO GROWTH AT 5 DAYS. Performing Lab: see note [facility] LB TSH Reviewed date:09/18/2024 07:21:43 PM Interpretation: Performing Lab: Notes/Report: Comment use am blood [facility] , Thyroid Stimulating Hormone 0.751 0.358-3.740 uIU/mL Performing Lab: see note - [facility] LB T4 Reviewed date:09/18/2024 07:21:43 PM Interpretation: Performing Lab: Notes/Report: Comment use am blood [facility] , T4 Thyroxine 6.60 4.80-13.90 ug/dL Performing Lab: see note [facility] LB LACTATE or LACTIC ACID Reviewed date:09/18/2024 07:21:43 PM Interpretation: Performing Lab: Notes/Report: [facility] , Lactate/Lactic Acid 1.2 0.4-2.0 mmol/L Performing Lab: see note - [facility] LB Reason For Referral Diagnosis 1 Thrombocythemia (D47 .3) Referral Organization [facility] Referring Provider First Name Mansoor Referring Provider Last Name Leela Referring Provider [facility] Referred Provider Timmy Duval Referred Provider Specialty Oncology Referral Priority Routine Reason please schedule lane Diagnosis 1 CHF (congestive hear t failure) (I50.9) Referral Organization [facility] Referring Provider First Name Mansoor Referring Provider Last Name Leela Referring Provider [facility]erred Provider Specialty Cardiology Referral Priority Routine Medications Medication SIG (Take, Route, Frequency, Duration) Notes Start Date End Date Status Glucerna Shake - Drink 237ml Orally three times daily DXE43 for 30 days 90 Bottles for 30 days- needs 21,330 ml for one month 11/18/2024 Active Losartan Potassium 50 MG 1 tablet Orally Once a day for 90 days Active Omeprazole 40 MG 1 tablet Oral Twice Daily for 90 days Active Hydroxyurea 500 MG 1 capsule Orally Once a day Unknown Albuterol Sulfate HFA 108 (90 Base) MCG/ACT INHALE 2 PUFFS EVERY 6 HOURS IF NEEDED FOR WHEEZING OR SHORTNESS OF BREATH. Inhalation for 90 Days Active Gabapentin 600 MG TAKE 1/2 TABLET BY MOUTH EVERY 8 HOURS Oral for 30 days Active Indomethacin 50 MG 1 capsule with food or milk Orally Twice a day for 10 days 10/03/2024 Unknown Potassium Chloride ER 20 MEQ 1 tablet with food Orally Once a day for 90 days Active Promethazine HCl 12.5 MG 1 tablet as needed Orally every 6 hrs Active oxyCODONE HCl 5 MG 1 tablet as needed Orally every 6 hrs for 30 days M54.9 Active Propranolol HCl 20 MG 1 tablet Orally Twice a day Active Social History Tobacco Use: Social History [...] Status W/U Status Risk Notes Problem Hypertension (85454004) Hypertension (I10) Active confirmed Problem Asthma (137629516) Asthma (J45.909) Active conf irmed Problem COPD - Chronic obstructive pulmonary disease (07616522) COPD (chronic obstructive pulmonary disease) (J44.9) Active confirmed Problem Congestive heart failure (11183589) CHF (congestive heart failure) (I50.9) Active confirmed Problem Back pain (200559869) Back pain (M54.9) Active confirmed Problem Thrombocythemia (1796793) Thrombocythemia (D47.3) Active confirmed Problem Pertussis (51047499) Pertussis (A37.90) Active confirmed Problem Myeloproliferative disorder (353457417) Myeloproliferative disorder (D47.1) Active confirmed Problem hypercholesterolemia (disorder) (28215724) Hypercholesteremia (E78.00) Active confirmed Problem Severe malnutrition (52220335) Severe malnutrition (E43) Active confirmed Problem Anemia (105872459) Acute anemia (D64.9) Active confirmed Vital Signs Blood pressure diastolic 60 mm Hg 12/01/2024 Height 66 in 12/01/2024 Blood pressure systolic 98 mm Hg 12/01/2024 Weight 97.2 lbs 12/01/2024 BMI 15.69 kg/m2 12/01/2024 Encounters Encounter Location Date Provider Diagnosis [facility] [address] [place] [address] 09/21/[address] [facility] [address] [place] [address] 09/23/[address] [facility] [address] [place] [address] 09/23/2024 Mansoor Rody Pertussis A37.90 [facility] [address] [place] [address] 09/23/[address] [facility] [address] [place] [address] 09/24/2024 Mansoor Swenson Acute anemia D64.9 [facility] [address] [place] [address] 11/27/[address] [facility] [address] [place] [address] 11/28/[address] [facility] [address] [place] [address] 11/28/[address] [facility] [address] [place] [address] 12/01/2024 Mansoor Swenson Thrombocythemia D47. [address] [facility] [address] [place] [address] 12/01/2024 Mansoor Swenson CHF (congestive hear t failure) I50.9 [facility] [address] [place] [address] 11/13/2024 Mansoor Rody Thrombocythemia D47. [address] [facility] [address] [place] [address] 11/18/[address] [facility] [address] [place] [address] 11/18/[address] [facility] [address] [place] [address] 11/20/[address] [facility] [address] [facility] [place] [address] 11/21/[address] [facility] [address] [place] [address] 11/26/[address] [facility] [address] [facility] [place] [address] 10/20/[address] [facility] [address] [facility] [place] [address] 10/27/2024 Mansoor Swenson [facility] [address] [facility] [address] [place] [address] 10/31/2024 Mansoor Hoy Anemia D64.9 and Generalized weakness R53.1 [facility] [address] [place] [address] 11/02/[address] [facility] [address] [facility] [place] [address] 11/05/[address] [facility] [address] [facility] [place] [address] 11/13/2024 Mansoor [facility] [address] [facility] [place] [address] 10/03/2024 Mansoor Swenson COPD (chronic obstru ctive pulmonary disease) J44.9 [facility] [address] [facility] [place] [address] 10/07/[address] [facility] [address] [facility] [place] [address] 10/11/[address] [facility] [address] [facility] [place] [address] 10/20/[address] [facility] [address] [facility] [place] [address] 10/20/2024 Mansoor [facility] [address] [place] [address] 10/20/2024 Mansoor Swenson [facility] [address] [place] [address] 09/30/[address] [facility] [address] [place] [address] 10/20/2024 Mansoor Hoalisa Acute bronchitis, unspecified organism J20.9 ; Hypertension I10 ; Asthma J45.909 and Myeloproliferative disorder D47.1 [facility] [address] [place] [address] 12/01/2024 Mansoor Swenson Hypertension I10 ; C OPD (chronic obstructive pulmonary disease) J44.9 ; Thrombocythemia D47.3 ; Acute anemia D64.9 and Back pain M54.9 [facility] [address] [place] [address] 10/01/2024 Mansoor Swenson COPD (chronic obstru ctive pulmonary disease) J44.9 ; Anemia D64.9 and Thrombocythemia D47.3 Assessments Encounter Date Diagnosis (ICD Code) Assessment Notes Treatment Notes Treatment Clinical Notes Section Notes 10/20/2024 Acute bronchitis, unspecified organism (ICD-10 - J20.9) Rest and drink more liquids, especially water. You may use a humidifier or vaporizer to help keep the drainage moist. Qoqq-ddl-zbqazaj Nasal Saline may help the stuffy and runny nose. Use Ibuprofen and or Tylenol as needed for fever, chills, body aches or pain. Children 5 years old should not be given zspm-pso-tonvuzu cough and cold medications such as guaifenesin and dextromethorphan. If you're over age 5, you may try lcqw-gcg-twubtgj cold medications such as guaifenesin and dextromethorphan, [...] call 911 10/20/2024 Hypertension (ICD-10 - I10) 12/01/2024 Hypertension (ICD-10 - I10) 12/01/2024 COPD (chronic obstructive pulmonary disease) (ICD-10 - J44.9) 09/23/2024 Pertussis (ICD-10 - A37.90) 09/24/2024 Acute anemia (ICD-10 - D64.9) 10/03/2024 COPD (chronic obstructive pulmonary disease) (ICD-10 - J44.9) 10/31/2024 Anemia (ICD-10 - D64.9) 10/31/2024 Generalized weakness (ICD-10 - R53.1) 11/13/2024 Thrombocythemia (ICD-10 - D47.3) 12/01/2024 Thrombocythemia (ICD-10 - D47.3) 12/01/2024 CHF (congestive hear t failure) (ICD-10 - I50.9) 10/01/2024 COPD (chronic obstructive pulmonary disease) (ICD-10 - J44.9) 10/01/2024 Anemia (ICD-10 - D64.9) 10/01/2024 Thrombocythemia (ICD-10 - D47.3) 12/01/2024 Thrombocythemia (ICD-10 - D47.3) 10/20/2024 Asthma (ICD-10 - J45.909) 10/20/2024 Myeloproliferative disorder (ICD-10 - D47.1) 12/01/2024 Acute anemia (ICD-10 - D64.9) 12/01/2024 Back pain (ICD-10 - M54.9) Plan Of Treatment Pending Test Test Name Order Date COMPREHENSIVE METABOLIC PROFILE WITH GFR 10/31/2024 CMP - Comprehensive Metabolic Panel 03/2024 CBC W/AUTO DIFF 09/23/2024 CBC W/AUTO DIFF 10/31/2024 CBC AUTO DIFF 09/24/2024 CBC AUTO DIFF 12/01/2024 PROF 14(COMP METB) 12/01/2024 PROF 14(COMP METB) 09/24/2024 Insurance Providers Payer Name Payer Address Payer Phone Subscriber Number Group Number Insured Name Patient Relationship to Insured Coverage Start Date Coverage End Date [employer] [address] [place] [address] [id number] Rylee Burton Self - patient is the insured Medications Administered Medication Instructions Date of Administration Dosage Notes Ketorolac Tromethamine 10/01/2024 60 mg Orphenadrine Citrate 10/01/2024 60 mg Medical (General) History Medical History History ICD Code Hypertension I10 Asthma J45.909 COPD (chronic obstructive pulmonary dise ase) J44.9 Anemia D64.9 Hypercholesteremia E78.00 Surgical History Surgery Date(Month/Year) Tubal Bone Marrow Biopsy Exploratory Appendectomy Gall Bladder Removal Clavical Hospitalization History Reason Date(Month/Year) abd pain 12/18 [place]/ Myeloproliferative Neoplasms 09/2024 Anemia, Weakness 08/2024
--- OUTSIDE RECORDS SUMMARY | 2024-12-04 12:26 | XMS_ITS | Encounter Summary ---
Demographics Address [address] [facility] [address] [place] [address] Mobile Phone Home Phone Work Phone Email Address Preferred Language en Marital Status Religion Affiliation Unknown Race White Ethnic Group Not or Lati no Author Organization [facility] Address [address] [place] [address] Care Team Providers Care Aviation Ordnance Officer Name Role Phone Domi Altamirano NP Unavailable [phone] Hiren Horton MD Primary Care Provider [phone] Domi Altamirano CORDWAINER Unavailable [phone] Domi Altamirano NP Unavailable [phone] Unallocated, Noms Provider Primary Care Provi taylor Encounter Details Date Type Department Care Team (Late st Contact Info) Description 09/22/2024 Abstract [facility] [address] [place] [address] Domi Altamirano, CORDWAINER [address] [place] [address] Social History Tobacco Use Types Packs/Day Years [...] declined 10/08/2023 How often do you attend religion or restorationist serv ices? Never 10/08/2023 Do you belong to any clubs o r organizations such as religion groups, unions, fraternal or athletic groups, or [...] medical care, and heating? Very hard 10/08/2023 [facility] [place] of Occupat ional Health - Occupational Stress [...] time in the past 12 m [facility], were you homeless or living in a [...] on filedocumented in this encounter Care Teams Aviation Ordnance Officer Relationship Specialty Start Date End Date Hiren Horton MD PCP - General Family Medicine 07/26/23 10/13/24 Domi Altamirano NP [address] [place] [address] PCP - [place] [employer] 08/24/24 Unallocated, Noms Provider, [address] [place] [address] PCP - General Family Medicine 10/14/24 Domi Altamirano NP Nurse Practitioner Family Medicine 03/26/22 10/13/24 Domi Altamirano NP Nurse Practitioner Family Medicine 07/26/23 10/13/24 documented as of this encounter
--- OUTSIDE RECORDS SUMMARY | 2024-12-04 12:26 | XMS_ITS | Clinical Summary ---
Author Organization [facility] Address [address] [place] [address] Care Team Providers Care Yacht Master Name Role Phone Sadie Maliksandor Maritno GOLF CART REPAIRER Primary Care Provider [phone] Domi Altamirano GOLF CART REPAIRER Unavailable [phone] Allergies Active Allergy Reactions Criticality Noted Date [...] - 8.0 g/dL 06/19/2017 11:09 PM EDT [facility] Albumin 4.4 3.9 - 4.9 g/dL 06/19/2017 11:09 PM EDT [facility] Calcium 9.4 8.5 - 10.2 mg/dL 06/19/2017 11:09 PM EDT [facility] Bilirubin, Total <0.2(L) 0.2 - 1.3 mg/dL 06/19/2017 11:09 PM EDT [facility] Alkaline Phosphatase 64 32 - 117 U/L 06/19/2017 11:09 PM EDT [facility] AST 11(L) 13 - 35 U/L 06/19/2017 11:09 PM [facility] Glucose 100(H) 74 - 99 mg/dL 06/19/2017 11:09 PM [facility] Comment: The [place] Diabetes Association (ADA) provides guidance for cutoff [...] Standards of Medical Care in Diabetes 2016, [place] Diabetes Association. Diabetes Care. 2016.39(Suppl 1). BUN 11 7 - 21 mg/dL 06/19/2017 11:09 PM [facility] Creatinine 0.75 0.58 - 0.96 mg/dL 06/19/2017 11:09 PM [facility] Sodium 138 136 - 144 mmol/L 06/19/2017 11:09 PM [facility] Potassium 4.0 3.7 - 5.1 mmol/L 06/19/2017 11:09 PM [facility] Chloride 103 97 - 105 mmol/L 06/19/2017 11:09 PM [facility] CO2 24 22 - 30 mmol/L 06/19/2017 11:09 PM [facility] Anion Gap 11 9 - 18 mmol/L 06/19/2017 11:09 PM [facility] ALT 11 7 - 38 U/L 06/19/2017 11:09 PM [facility] eGFR- >60 06/19/2017 11:09 PM [facility] eGFR-All Other Races >60 . 06/19/2017 11:09 PM [facility] Comment: eGFR (Estimated GFR) Units of [...] us Evan Ruiz MD LABORATORY Final Result [facility] [address] [place] [address] from Last 3 Months or Most Recently Relevant to Health Maintenance Insurance [employer] Care Teams Yacht Master Relationship Specialty Start Date End Date Lizzette Malik GOLF CART REPAIRER PCP - General Family Medicine 12/04/14 Domi Altamirano CNP Referring Family Medicine 10/14/21
--- OUTSIDE RECORDS SUMMARY | 2024-12-04 12:26 | XMS_ITS | Encounter Summary ---
Demographics Address [address] [facility] [address] [place] [address] Mobile Phone Home Phone Work Phone Email Address Preferred Language en Marital Status Alevism Affiliation Unknown Race White Ethnic Group Not or Lati no Author Organization [facility] Address [address] [place] [address] Care Team Providers Care Cobol Mainframe Developer Name Role Phone Domi Altamirano NP Unavailable [phone] Hiren Horton MD Primary Care Provider Domi Altamirano CENTRAL SUPPLY NURSE Unavailable [phone] Domi Altamirano NP Unavailable [phone] Unallocated, Noms Provider Primary Care Provi taylor Encounter Details Date Type Department Care Team (Late st Contact Info) Description 09/18/2024 Abstract [facility] [address] [place] [address] Domi Altamirano, CENTRAL SUPPLY NURSE [address] [place] [address] Social History Tobacco Use Types Packs/Day Years [...] declined 10/08/2023 How often do you attend yazidi or uatsdin serv ices? Never 10/08/2023 Do you belong to any clubs o r organizations such as yazidi groups, unions, fraternal or athletic groups, or [...] medical care, and heating? Very hard 10/08/2023 [facility] [place] of Occupat ional Health - Occupational Stress [...] any time in the past 12 m [facility], were you homeless or living in a [...] on filedocumented in this encounter Care Teams Cobol Mainframe Developer Relationship Specialty Start Date End Date Hiren Horton MD PCP - General Family Medicine 07/26/23 10/13/24 Domi Altamirano NP [address] [place] [address] PCP - [place] [employer] 08/24/24 Unallocated, Noms Provider, [address] [place] [address] PCP - General Family Medicine 10/14/24 Domi Altamirano NP Nurse Practitioner Family Medicine 03/26/22 10/13/24 Domi Altamirano NP Nurse Practitioner Family Medicine 07/26/23 10/13/24 documented as of this encounter
--- OUTSIDE RECORDS SUMMARY | 2024-12-04 12:26 | XMS_ITS | Encounter Summary ---
Author Organization [facility] Address [address] [place] [address] Care Team Providers Care Customs Broker Name Role Phone Lizzette Malik CNP Primary Care Provider [phone] Domi Altamirano FIRE ASSISTANT Unavailable [phone] Source Comments In the event this information is protected by the Federal Confidentiality of Alcohol and Drug AbusePatient Records regulations: The Federal rules restrict any use of the information to criminally investigate or prosecute any alcohol or drug abuse patient.[facility] Reason for Visit * Reason Comments Radiology CT Encounter Details Date Type Department Care Team ([facility] st Contact Info) Description 06/20/2017 Radiology Radiology [address] [address] Lizzette Malik, FIRE ASSISTANT [address] [place] [address] Social History Tobacco Use Types [...] on filedocumented in this encounter Care Teams Customs Broker Relationship Specialty Start Date End Date Lizzette Malik CNP PCP - General Family Medicine 12/04/14 Domi Altamirano CNP Referring Family Medicine 10/14/21 documented as of this encounter
--- OUTSIDE RECORDS SUMMARY | 2024-12-04 12:26 | XMS_ITS | Encounter Summary ---
Demographics Address [address] [facility] [address] [place] [address] Mobile Phone Home Phone Work Phone Email Address Preferred Language en Marital Status Hindu Affiliation Unknown Race White Ethnic Group Not or Lati no Author Organization [facility] Address [address] [place] [address] Care Team Providers Care Band Cutting Machine Operator Name Role Phone Domi Altamirano NP Unavailable [phone] Hiren Horton MD Primary Care Provider [phone] Domi Altamirano DISH PERSON Unavailable [phone] Domi Altamirano NP Unavailable [phone] Unallocated, Noms Provider Primary Care Provi taylor Encounter Details Date Type Department Care Team (Late st Contact Info) Description 09/17/2024 Abstract [facility] [address] [place] [address] Domi Altamirano, DISH PERSON [address] [place] [address] Social History Tobacco Use Types Packs/Day Years [...] declined 10/08/2023 How often do you attend orthodoxy or druze serv ices? Never 10/08/2023 Do you belong to any clubs o r organizations such as orthodoxy groups, unions, fraternal or athletic groups, or [...] medical care, and heating? Very hard 10/08/2023 [facility] [place] of Occupat ional Health - Occupational Stress [...] any time in the past 12 m [facility], were you homeless or living in a [...] on filedocumented in this encounter Care Teams Band Cutting Machine Operator Relationship Specialty Start Date End Date Hiren Horton MD PCP - General Family Medicine 07/26/23 10/13/24 Domi Altamirano NP [address] [place] [address] PCP - [place] [employer] 08/24/24 Unallocated, Noms Provider, [address] [place] [address] PCP - General Family Medicine 10/14/24 Domi Altamirano NP Nurse Practitioner Family Medicine 03/26/22 10/13/24 Domi Altamirano NP Nurse Practitioner Family Medicine 07/26/23 10/13/24 documented as of this encounter
--- OUTSIDE RECORDS SUMMARY | 2024-12-04 12:26 | XMS_ITS | Encounter Summary ---
Demographics Address [address] [address] Mobile Phone Home Phone Work Phone Email Address Preferred Language en Marital Status Mosque Affiliation Unknown Race White Ethnic Group Not or Lati no Author Organization [facility] Address [address] [place] [address] Care Team Providers Care Office Spec Name Role Phone Domi Altamirano COGNOS DEVELOPER Unavailable [phone] Hiren Horton MD Primary Care Provider [phone] Domi Altamirano NP Unavailable [phone] Domi Altamirano NP Unavailable [phone] Unallocated, Noms Provider Primary Care Provi taylor Encounter Details Date Type Department Care Team (Late st Contact Info) Description 09/22/2024 Orders Only [facility] [address] [facility] [place] [address] Nakul Swenson MD [address] [facility] [place] [address] Social History Tobacco Use Types [...] How often do you attend worship or protestant serv ices? Never 10/08/2023 Do you belong [...] medical care, and heating? Very hard 10/08/2023 [facility] of Occupat ional Health [...] in the past 12 m [facility], were you homeless or living [...] on filedocumented in this encounter Care Teams Office Spec Relationship Specialty Start Date End Date Hiren Horton MD PCP - General Family Medicine 07/26/23 10/13/24 Domi Altamirano NP [address] [place] [address] PCP - [place] [employer] 08/24/24 Unallocated, Noms Mariaelena, [address] [place] [address] PCP - General Family Medicine 10/14/24 Domi Altamirano NP Nurse Practitioner Family Medicine 03/26/22 10/13/24 Domi Altamirano NP Nurse Practitioner Family Medicine 07/26/23 10/13/24 documented as of this encounter
--- OUTSIDE RECORDS SUMMARY | 2024-12-04 12:26 | XMS_ITS | Encounter Summary ---
Demographics Address [address] [facility] [address] [place] [address] Mobile Phone Home Phone Work Phone Email Address Preferred Language en Marital Status Yarsani Affiliation Unknown Race White Ethnic Group Not or Lati no Author Organization [facility] Address [address] [place] [address] Care Team Providers Care Transportation Solutions Manager Name Role Phone Domi Altamirano NP Unavailable [phone] Hiren Horton MD Primary Care Provider Domi Altamirano A AUXILIARY Unavailable [phone] Domi Altamirano NP Unavailable [phone] Unallocated, Noms Provider Primary Care Provi taylor Encounter Details Date Type Department Care Team (Late st Contact Info) Description 09/23/2024 Abstract [facility] [address] [place] [address] Domi Altamirano, A AUXILIARY [address] [facility] [place] [address] Social History Tobacco Use Types Packs/Day Years [...] declined 10/08/2023 How often do you attend restorationist or yarsanism serv ices? Never 10/08/2023 Do you belong to any clubs o r organizations such as restorationist groups, unions, fraternal or athletic groups, or [...] care, and heating? Very hard 10/08/2023 [facility] [place] of Occupat ional Health - Occupational Stress [...] in the past 12 m [facility], were you homeless or living in a [...] on filedocumented in this encounter Care Teams Transportation Solutions Manager Relationship Specialty Start Date End Date Hiren Horton MD PCP - General Family Medicine 07/26/23 10/13/24 Domi Altamirano NP [address] [place] [address] PCP - [place] [employer] 08/24/24 Unallocated, Noms Provider, [address] [place] [address] PCP - General Family Medicine 10/14/24 Domi Altamirano NP Nurse Practitioner Family Medicine 03/26/22 10/13/24 Domi Altamirano NP Nurse Practitioner Family Medicine 07/26/23 10/13/24 documented as of this encounter
--- OUTSIDE RECORDS SUMMARY | 2024-12-04 12:26 | XMS_ITS | Encounter Summary ---
Demographics Address [address] [facility] [address] [place] [address] Mobile Phone Home Phone Work Phone Email Address Preferred Language en Marital Status Muslim Affiliation Unknown Race White Ethnic Group Not or Lati no Author Organization [facility] Address [address] [place] [address] Care Team Providers Care Lead Slot Technician Name Role Phone Domi Altamirano NP Unavailable [phone] Hiren Horton MD Primary Care Provider [phone] Domi Altamirano FELLER HAND Unavailable [phone] Domi Altamirano NP Unavailable [phone] Unallocated, Noms Provider Primary Care Provi taylor Encounter Details Date Type Department Care Team (Late st Contact Info) Description 09/22/2024 Abstract [facility] [address] [place] [address] Domi Altamirano, FELLER HAND [address] [place] [address] Social History Tobacco Use Types Packs/Day Years [...] declined 10/08/2023 How often do you attend restoration or tenriism serv ices? Never 10/08/2023 Do you belong to any clubs o r organizations such as restoration groups, unions, fraternal or athletic groups, or [...] heating? Very hard 10/08/2023 [facility] [place] of Occupat ional Health - Occupational Stress [...] were you homeless or living in a [facility] (including now)? Yes 10/08/2023 Comments Unknown Sex and Gender Information Value Date Recorded Sex Assigned at Not on file Legal Sex Female 6:59 PM EDT Gender Identity Not on file Sexual Orientation Not on file documented as of this encounter Plan of Treatment Not on file documented as of this encounter Visit Diagnoses Not on filedocumented in this encounter Care Teams Lead Slot Technician Relationship Specialty Start Date End Date Hiren Horton MD PCP - General Family Medicine 07/26/23 10/13/24 Domi Altamirano NP [address] [place] [address] PCP - [place] [employer] 08/24/24 Unallocated, Noms Provider, [address] [place] [address] PCP - General Family Medicine 10/14/24 Domi Altamirano NP Nurse Practitioner Family Medicine 03/26/22 10/13/24 Domi Altamirano NP Nurse Practitioner Family Medicine 07/26/23 10/13/24 documented as of this encounter
--- OUTSIDE RECORDS SUMMARY | 2024-12-04 12:27 | XMS_ITS | Encounter Summary ---
Demographics Address [address] [place] [address] Mobile Phone Home Phone Work Phone Email Address Preferred Language en Marital Status Christian Affiliation Unknown Race White Ethnic Group Not or Lati no Author Organization [facility] Address [address] [facility] [place] [address] Care Team Providers Care Senior Network Engineer Name Role Phone Domi Altamirano NP Unavailable [phone] Hiren Horton MD Primary Care Provider Domi Altamirano NP Unavailable [phone] Domi Altamirano NP Unavailable [phone] Unallocated, Noms Provider Primary Care Provi taylor Encounter Details Date Type Department Care Team (Late st Contact Info) Description 10/09/2023 Orders Only [facility] [address] [place] [address] Domi Munroe MD [address] [place], [place] [address] Social History Tobacco Use Types Packs/Day Years [...] How often do you attend orthodox or gnosticism serv ices? Never 10/08/2023 Do [...] medical care, and heating? Very hard 10/08/2023 [facility] of Occupat ional Health - Occupational [...] in the past 12 m [facility], were you homeless or living in a halfway (including now)? Yes 10/08/2023 Comments Unknown Sex [...] filedocumented in this encounter Care Teams Senior Network Engineer Relationship Specialty Start Date End Date Hiren Horton MD PCP - General Family Medicine 07/26/23 10/13/24 Domi Altamirano NP [address] [place] [address] PCP - [place] [employer] 08/24/24 Unallocated, [place] [address] PCP - General Family Medicine 10/14/24 Domi Altamirano NP Nurse Practitioner Family Medicine 03/26/22 10/13/24 Domi Altamirano NP Nurse Practitioner Family Medicine 07/26/23 10/13/24 documented as of this encounter
--- OUTSIDE RECORDS SUMMARY | 2024-12-04 12:27 | XMS_ITS | Encounter Summary ---
Demographics Address [address] [place] [address] Mobile Phone Home Phone Work Phone Email Address Preferred Language en Marital Status Temple Affiliation Unknown Race White Ethnic Group Not or Lati no Author Organization [facility] Address [address] [place] [address] Care Team Providers Care Conveyor Line Battery Charger Name Role Phone Domi Altamirano NP Unavailable [phone] Hiren Horton MD Primary Care Provider [phone] Domi Altamirano NP Unavailable [phone] Domi Altamirano NP Unavailable [phone] Unallocated, Noms Provider Primary Care Provi taylor Encounter Details Date Type Department Care Team (Late st Contact Info) Description 09/25/2023 Clinisync Result Encounter [facility] External Department Unsolicited Domi Altamirano CONCRETE STONE FABRICATOR [address] [place] [address] Social History Tobacco Use Types Packs/Day Years [...] EDT Narrative 09/25/2023 3:20 [place] [address] Mammography Report Signed Patient: JAIME MERRILL MR#: [id number] : 1975 Acct:[id number] Age/Sex: 48 / F ADM Date: 09/24/23 Loc: MAMMO Attending Dr: Domi Altamirano NP Ordering Physician: Domi Altamirano NP Results: Date of Service: 09/24/23 Follow Up: Procedure(s): MM tomosynthesis screening BI Accession Number(s): [id number] cc: Domi Altamirano NP Patient Name: JAIME MERRILL MR#: [id number] : 1975 Exam Date: 09/24/2023 Ordering Doctor: [...] cancer at age 63. LOCATION: [facility] BREAST COMPOSITION: The breasts are heterogeneously [...] Signed By: 09/25/23 1520 DD/ 1519 TD/TT: Liquor Merchant: Procedure Note Radiology, Radiologist, MD - 09/25/2023 [place] [address] Mammography Report Signed Patient: JAIME MERRILL KMR#: [id number] : 1975Acct:[id number] Age/Sex: 48 / FADM Date: 09/24/23 Loc: MAMMO Attending Dr: Domi Altamirano CONCRETE STONE FABRICATOR Ordering Physician: Domi Altamirano NPResults: Date of Service: 09/24/23Follow Up: Procedure(s): MM tomosynthesis screening BI Accession Number(s): [id number] cc: Domi Altamirano CONCRETE STONE FABRICATOR Patient Name: JAIME MERRILL MR#: [id number] : 1975 Exam Date: 09/24/2023 Ordering Doctor: ARELY ALTAMIRANO LIABILITY CLAIMS REPRESENTATIVE RADIOLOGY REPORT PROCEDURE: MM TOMOSYNTHESIS SCREENING BI [...] cancer at age 63. LOCATION: [facility] BREAST COMPOSITION: The breasts are heterogeneously [...] M.D. Signed By:09/25/23 1520 DD/ 1519 TD/TT: Liquor Merchant: Domi Altamirano NP [facility] Final Result documented in this encounter Visit Diagnoses Not on filedocumented in this encounter Care Teams Conveyor Line Battery Charger Relationship Specialty Start Date End Date Hiren Horton MD PCP - General Family Medicine 07/26/23 10/13/24 Domi Altamirano NP [address] [place] [address] PCP - [facility] 08/24/24 Unallocated, Noms Provider, [address] [place] [address] PCP - General Family Medicine 10/14/24 Dmoi Altamirano NP Nurse Practitioner Family Medicine 03/26/22 10/13/24 Domi Altamirano NP Nurse Practitioner Family Medicine 07/26/23 10/13/24 documented as of this encounter
--- OUTSIDE RECORDS SUMMARY | 2024-12-04 12:27 | XMS_ITS | Encounter Summary ---
Demographics Address [address] [facility] [address] [place] [address] Mobile Phone Home Phone Work Phone Email Address Preferred Language en Marital Status Rastafarian Affiliation Unknown Race White Ethnic Group Not or Lati no Author Organization [facility] Address [address] [place] [address] Care Team Providers Care Bicycle I Assembler Name Role Phone Domi Altamirano NP Unavailable [phone] Hiren Horton MD Primary Care Provider Domi Altamirano PUTTYING AND CALKING SUPERVISOR Unavailable [phone] Domi Altamirano NP Unavailable [phone] Unallocated, Noms Provider Primary Care Provi taylor Encounter Details Date Type Department Care Team (Late st Contact Info) Description 12/17/2023 Orders Only [facility] [address] [place] [address] Domi Altamirano, PUTTYING AND CALKING SUPERVISOR [address] [facility] [place] [place] [address] Social History Tobacco Use Types Packs/Day Years [...] declined 10/08/2023 How often do you attend roman catholic or buddhism serv ices? Never 10/08/2023 Do you belong to any clubs o r organizations such as roman catholic groups, unions, fraternal or athletic groups, or [...] medical care, and heating? Very hard 10/08/2023 [facility] [place] of Occupat ional Health - Occupational [...] any time in the past 12 m [facility], were you homeless or living [...] on filedocumented in this encounter Care Teams Bicycle I Assembler Relationship Specialty Start Date End Date Hiren Horton MD PCP - General Family Medicine 07/26/23 10/13/24 Domi Altamirano NP [address] [place] [address] [facility] 08/24/[facility] Unallocated, Noms Provider, [place] [address] PCP - General Family Medicine 10/14/24 Domi Altamirano NP Nurse Practitioner Family Medicine 03/26/22 10/13/24 Domi Altamirano NP Nurse Practitioner Family Medicine 07/26/23 10/13/24 documented as of this encounter
--- OUTSIDE RECORDS SUMMARY | 2024-12-04 12:27 | XMS_ITS | Encounter Summary ---
Demographics Address [address] [facility] [address] [place] [address] Mobile Phone Home Phone Work Phone Email Address Preferred Language en Marital Status Holiness Affiliation Unknown Race White Ethnic Group Not or Lati no Author Organization [facility] Address [address] [place] [address] Care Team Providers Care Guest Services Lead Name Role Phone Domi Altamirano MACHINE SPECIALIST Unavailable [phone] Hiren Horton MD Primary Care Provider [phone] Domi Altamirano MACHINE SPECIALIST Unavailable [phone] Domi Altamirano NP Unavailable [phone] Unallocated, Noms Provider Primary Care Provi taylor Encounter Details Date Type Department Care Team (Late st Contact Info) Description 09/25/2023 Orders Only [facility] [address] [place] [address] Carolyn Seven, OD [address] [id number] Social History Tobacco Use Types Packs/Day Years [...] Modality Radiographic Carmen ging us Domi Altamirano MACHINE SPECIALIST IMG XR PROCEDURES Final Result * Diabetic Retinopathy Screening - OU - Both Eyes (09/25/2023 8:54 AM EDT) Anatomical Region Laterality Modality Head Other us Seven Carolyn OD OPHTH PHOTOGRAPHY Final Result documented in this encounter Visit Diagnoses Not on filedocumented in this encounter Care Teams Guest Services Lead Relationship Specialty Start Date End Date Hiren Horton MD PCP - General Family Medicine 07/26/23 10/13/24 Domi Altamirano NP [address] [place] [address] PCP - [facility] 08/24/24 Unallocated, Noms MD Mariaelena [address] [place] [address] PCP - General Family Medicine 10/14/24 Domi Altamirano NP Nurse Practitioner Family Medicine 03/26/22 10/13/24 Domi Altamirano NP Nurse Practitioner Family Medicine 07/26/23 10/13/24 documented as of this encounter
--- OUTSIDE RECORDS SUMMARY | 2024-12-04 12:27 | XMS_ITS | Encounter Summary ---
Demographics Address [address] [place] [address] Mobile Phone Home Phone Work Phone Email Address Preferred Language en Marital Status Catholic Affiliation Unknown Race White Ethnic Group Not or Lati no Author Organization [facility] Address [address] [place] [address] Care Team Providers Care Retort Press Operator Name Role Phone Domi Altamirano NP Unavailable [phone] Hiren Horton MD Primary Care Provider [phone] Domi Altamirano NP Unavailable [phone] Domi Altamirano NP Unavailable [phone] Unallocated, Noms Provider Primary Care Provi [...] declined 10/08/2023 How often do you attend buddhist or tenriism serv ices? Never 10/08/2023 Do you belong to any clubs o r organizations such as buddhist groups, unions, fraternal or athletic groups, or [...] medical care, and heating? Very hard 10/08/2023 [facility] of Occupat ional Health - [...] time in the past 12 m [facility], were you homeless or living [...] AM EDT Narrative 10/09/2023 7:09 [place] [address] Ultrasound Report Signed Patient: JAIME MERRILL MR#: [id number] : 1975 Acct:[id number] Age/Sex: 48 / F ADM Date: 10/08/23 Loc: US Attending Dr: Domi Howard FILM PROCESSOR Ordering Physician: Domi Howard NP Date of Service: 10/08/23 Procedure(s): US pelvis transvaginal Accession Number(s): [id number] cc: Domi Altamirano NP; Domi Howard NP [address] [address] Patient Name: JAIME MERRILL MRN: [id number] date: 1975 Sex: F Assigned Patient Location: US Current Patient Location: Accession/Order Number: [id number] Exam Date: 10/08/2023 18:28 Report Date: 10/09/2023 [...] M.D. Signed By: 10/09/2309 DD/ 5 TD/TT: Line Assembler: Procedure Note Radiology, Radiologist, MD - 10/09/2023 [place] [address] Ultrasound Report Signed Patient: JAIME MERRILL KMR#: [id number] : 1975Acct:[id number] Age/Sex: 48 / FADM Date: 10/08/23 Loc: US Attending Dr: Domi Howard NP Ordering Physician: Domi Howard NP Date of Service: 10/08/23 Procedure(s): US pelvis transvaginal Accession Number(s): [id number] cc: Domi Altamirano NP; Domi Howard NP The [address] [address] Patient Name: JAIME MERRILL MRN: [id number] date: 1975 Sex: F Assigned Patient Location: US Current Patient Location: Accession/Order Number: [id number] Exam Date: 10/08/2023 18:28 Report Date: 10/09/2023 [...] M.D. Signed By:10/09/23 0709 DD/ 0706 TD/TT: Line Assembler: us Generic External Data Provider [facility] Final Result documented in this encounter Visit Diagnoses Not on filedocumented in this encounter Care Teams Retort Press Operator Relationship Specialty Start Date End Date Hiren Horton MD PCP - General Family Medicine 07/26/23 10/13/24 Domi Altamirano NP [address] [place] [address] [facility] - [facility] 08/24/24 Unallocated, Noms Provider, [address] [address] PCP - General Family Medicine 10/14/24 Domi Altamirano NP Nurse Practitioner Family Medicine 03/26/22 10/13/24 Domi Altamirano NP Nurse Practitioner Family Medicine 07/26/23 10/13/24 documented as of this encounter
--- OUTSIDE RECORDS SUMMARY | 2024-12-04 12:27 | XMS_ITS | Encounter Summary ---
Demographics Address [address] [facility] [address] [place] [address] Mobile Phone Home Phone Work Phone Email Address Preferred Language en Marital Status Judaism Affiliation Unknown Race White Ethnic Group Not or Lati no Author Organization [facility] Address [address] [place] [address] Care Team Providers Care Contact Assembler Name Role Phone Domi Altamirano NP Unavailable [phone] Hiren Horton MD Primary Care Provider [phone] Domi Altamirano SECURITY SCREENER Unavailable [phone] Domi Altamirano NP Unavailable [phone] Unallocated, Noms Provider Primary Care Provi taylor Encounter Details Date Type Department Care Team (Late st Contact Info) Description 12/18/2023 Orders Only [facility] [address] [place] [address] Domi Altamirano, SECURITY SCREENER [address] [facility] [place] [address] Social History Tobacco Use Types Packs/Day Years [...] declined 10/08/2023 How often do you attend anabaptism or jehovah's witness serv ices? Never 10/08/2023 Do you belong to any clubs o r organizations such as anabaptism groups, unions, fraternal or athletic groups, or [...] medical care, and heating? Very hard 10/08/2023 [facility] [place] of Occupat ional Health - Occupational Stress [...] time in the past 12 m [facility], were you homeless or living [...] on filedocumented in this encounter Care Teams Contact Assembler Relationship Specialty Start Date End Date Hiren Horton MD PCP - General Family Medicine 07/26/23 10/13/24 Domi Altamirano NP [address] [place] [address] PCP - [place] [facility] 08/24/24 Unallocated, Noms MD Mariaelena [address] [place] [address] PCP - General Family Medicine 10/14/24 Domi Altamirano NP Nurse Practitioner Family Medicine 03/26/22 10/13/24 Domi Altamirano NP Nurse Practitioner Family Medicine 07/26/23 10/13/24 documented as of this encounter
--- OUTSIDE RECORDS SUMMARY | 2024-12-04 12:27 | XMS_ITS | Encounter Summary ---
Demographics Address [address] [facility] [address] [place] [address] Mobile Phone Home Phone Work Phone Email Address Preferred Language en Marital Status Hindu Affiliation Unknown Race White Ethnic Group Not or Lati no Author Organization [facility] Address [address] [facility] [place] [address] Care Team Providers Care Access Registrar Name Role Phone Doim lAtamirano ICE PULLER Unavailable [phone] Hiren Horton MD Primary Care Provider [phone] Domi Altamirano ICE PULLER Unavailable [phone] Domi Altamirano NP Unavailable [phone] Unallocated, Noms Provider Primary Care Provi taylor Encounter Details Date Type Department Care Team (Late st Contact Info) Description 12/31/2023 Orders Only [facility] [address] [place] [address] Abran West MD [address] [place], [place] [id number] Social History Tobacco Use Types Packs/Day Years [...] How often do you attend episcopalian or islam serv ices? Never 10/08/2023 Do you belong [...] medical care, and heating? Very hard 10/08/2023 [facility] of Occupat ional Health - [...] any time in the past 12 m [facility], were you homeless or living [...] on filedocumented in this encounter Care Teams Access Registrar Relationship Specialty Start Date End Date Hiren Horton MD PCP - General Family Medicine 07/26/23 10/13/24 Domi Altamirano NP [address] [place] [address] PCP - [place] [facility] 08/24/24 Unallocated, [place] [address] PCP - General Family Medicine 10/14/24 Domi Altamirano NP Nurse Practitioner Family Medicine 03/26/22 10/13/24 Domi Altamirano NP Nurse Practitioner Family Medicine 07/26/23 10/13/24 documented as of this encounter
--- OUTSIDE RECORDS SUMMARY | 2024-12-04 12:27 | XMS_ITS | Encounter Summary ---
Demographics Address [address] [facility] [address] [place] [address] Mobile Phone Home Phone Work Phone Email Address Preferred Language en Marital Status Restoration Affiliation Unknown Race White Ethnic Group Not or Lati no Author Organization [facility] Address [address] [place] [address] Care Team Providers Care Psychotherapist Counselor Name Role Phone Domi Altamirano NP Unavailable [phone] Hiren Horton MD Primary Care Provider Domi Altamirano DIRECTOR OF ANCILLARY SERVICES Unavailable [phone] Domi Altamirano NP Unavailable [phone] Unallocated, Noms Provider Primary Care Provi taylor Encounter Details Date Type Department Care Team (Late st Contact Info) Description 01/10/2024 Abstract [facility] [address] [place] [address] Domi Altamirano, DIRECTOR OF ANCILLARY SERVICES [address] [facility] [place] [address] Social History Tobacco Use Types Packs/Day Years [...] How often do you attend spiritism or uatsdin serv ices? Never 10/08/2023 Do [...] medical care, and heating? Very hard 10/08/2023 [facility] of Occupat ional Health - Occupational Stress [...] in the past 12 m [facility], were you homeless or living in a [...] on filedocumented in this encounter Care Teams Psychotherapist Counselor Relationship Specialty Start Date End Date Hiren Horton MD PCP - General Family Medicine 07/26/23 10/13/24 Domi Altamirano NP [address] [place] [address] PCP - [place] [facility] 08/24/24 Unallocated, Noms Provider, [address] [place] [address] PCP - General Family Medicine 10/14/24 Domi Altamirano NP Nurse Practitioner Family Medicine 03/26/22 10/13/24 Domi Altamirano NP Nurse Practitioner Family Medicine 07/26/23 10/13/24 documented as of this encounter
--- OUTSIDE RECORDS SUMMARY | 2024-12-04 12:27 | XMS_ITS | Encounter Summary ---
Demographics Address [address] [facility] [address] [place] [address] Mobile Phone Home Phone Work Phone Email Address Preferred Language en Marital Status Congregational Affiliation Unknown Race White Ethnic Group Not or Lati no Author Organization [facility] Address [address] [place] [address] Care Team Providers Care Automation Architect Name Role Phone Domi Altamirano NP Unavailable [phone] Hiren Horton MD Primary Care Provider Domi Altamirano SUBSTITUTE BUS DRIVER Unavailable [phone] Domi Altamirano NP Unavailable [phone] Unallocated, Noms Provider Primary Care Provi taylor Encounter Details Date Type Department Care Team (Late st Contact Info) Description 09/16/2024 Abstract [facility] [address] [place] [address] Domi Altamirano, SUBSTITUTE BUS DRIVER [address] [place] [address] Social History Tobacco Use Types Packs/Day Years [...] How often do you attend druze or taoist serv ices? Never 10/08/2023 Do you belong [...] medical care, and heating? Very hard 10/08/2023 [facility] of Occupat ional Health - Occupational Stress [...] on filedocumented in this encounter Care Teams Automation Architect Relationship Specialty Start Date End Date Hiren Horton MD PCP - General Family Medicine 07/26/23 10/13/24 Domi Altamirano NP [address] [place] [address] PCP - [place] [facility] 08/24/24 Unallocated, Noms Provider, [address] [place] [address] PCP - General Family Medicine 10/14/24 Domi Altamirano NP Nurse Practitioner Family Medicine 03/26/22 10/13/24 Domi Altamirano NP Nurse Practitioner Family Medicine 07/26/23 10/13/24 documented as of this encounter
--- OUTSIDE RECORDS SUMMARY | 2024-12-04 12:27 | XMS_ITS | Clinical Summary ---
Author Organization [facility] Address [id number] [place] [address] Care Team Providers Care Validation Manager Name Role Phone No Pcp, No Pcp [...] specimen type ThinPrep 10/04/2023 4:33 AM EDT [facility] Hpv 16 Negative Negative^N egative 10/04/2023 1:07 PM EDT [facility] Hpv 18 Negative Negative^N egative 10/04/2023 1:07 PM EDT [facility] Other high risk hpv Negative Negative^N egative 10/04/2023 1:07 PM EDT [facility] Comment: HPV types 31,33,35,39,45,52,56,58,59,66 and 68 DNA were undetectable. THINP 10/03/2023 4:33 AM EDT 10/03/2023 4:38 AM EDT us Domi Ledezma FARM SPECIALIST-PIE FILLER LAB BLOOD ORDERABLES Fin al Result [facility] [address] [facility], [place] [address] [facility] [address] [facility], [address] [place] [address] from Last 3 Months or Most Recently Relevant to Health Maintenance Insurance [facility] MEDICAID Care Teams Validation Manager Relationship Specialty Start Date End Date No Pcp, [place] [address] PCP - General Family Medicine 05/16/17
--- OUTSIDE RECORDS SUMMARY | 2024-12-04 12:27 | XMS_ITS | Clinical Summary ---
Demographics Address [address] [place] [address] Mobile Phone Home Phone Work Phone Email Address Preferred Language en Marital Status Catholic Affiliation Unknown Race White Ethnic Group Not or Lati no Author Organization [facility] Address [address] [place] [address] Care Team Providers Care Distribution A Class Lineman Name Role Phone Domi Altamirano MIGUEL A Unavailable [phone] Unallocated, [facility] Provider Primary Care Provi taylor Allergies Active Allergy Reactions Criticality Noted Date Comments Erythromycin Unknown 02/21/2023 Latex Unknown 02/21/2023 Methylprednisolone Unknown 02/21/2023 Methylprednisolone Sodium Succ Anaphylaxis High 12/0 08/2016 Tramadol 07/26/2023 Xfttimjeqaw-Lbposutuw-Sdbtbl Shortness of breath High 02/21/2023 Medications cetirizine [...] 07/22/2024 Bronchitis 12/11/2023 04/14/2024 Overview (01/10/2024): [facility] [id number] Exp: 03/25/24 Lot # [id number] Assessment & Plan (01/10/2024 1:18 PM EDT): No wheezing noted, multiple allergies and has been on z pack as well as doxy and steroids Will order health trax Possible allergy trigger?? Samples of vandana 180mg 1 po daily, and #2 samples Lot [id number], exp 08/18 Airsupra sample #1; [id number], exp 04/2024 Astepro allergy nasal spray 2 [...] AM EDT): Tremayne samples X3 given Lot: [id number], exp 12/18 Assessment & Plan (10/15/2023 7:48 PM EDT): Continue with current meds no changes Major depression in partial remission 07/26/2023 04/14/2024 Encounters Date Type Department Care Team Description 10/15/2024 External Result Encounter [facility] External Department Unsolicited oJse M Mercedes, DO 10/14/2024 External Result Encounter [...] Data 09/23/2024 Travel 09/23/2024 Abstract [facility] [address] [place] [address] Domi Altamirano, WAITER/WAITRESS COUNTER 09/22/2024 Abstract [facility] [address] [place] [address] Domi Altamirano, WAITER/WAITRESS COUNTER 09/22/2024 Orders Only [facility] [address] [place] [address] Nakul Swenson MD 09/22/2024 Abstract [facility] [address] [place] [address] Domi Altamirano, MIGUEL A 09/18/2024 Clinisync Result Encounter NOMS External Department Unsolicited Provider, Generic External Data 09/18/2024 Abstract [facility] [address] [place] [address] Domi Altamirano, MIGUEL A 09/17/2024 Abstract [facility] [address] [place] [address] Domi Altamirano, MIGUEL A 09/17/2024 [facility] [address] [place] [address] Li Ku MD 09/17/2024 Abstract [facility] [address] [place] [address] Domi Altamirano NP 09/16/2024 Abstract [facility] [address] [place] [address] Domi Altamirano NP 09/16/2024 Orders Only [facility] [address] [place] [address] Domi Altamirano NP 09/16/2024 Abstract [facility] [address] [place] [address] Domi Altamirano NP 09/16/2024 Clinisync Result Encounter [...] declined 10/08/2023 How often do you attend lutheran or nondenominational serv ices? Never 10/08/2023 Do you belong to any clubs o r organizations such as lutheran groups, unions, fraternal or athletic groups, or [...] medical care, and heating? Very hard 10/08/2023 [facility] of Occupat ional Health - Occupational Stress [...] URINE Routine 10/14/2024 5:00 PM EDT IMMUNOFIXATION,SERUM ([facility]) Routine 10/14/2024 12:20 PM EDT [facility] PANEL [...] * (ABNORMAL) Fibrinogen (10/15/2024 5:53 AM EDT) [facility] Signature FIBRINOGEN 945(H) 200 - 393 mg/dL 10/15/2024 7:20 AM EDT [facility] Comment: A hematocrit value greater than 55% may lead to inaccurate results in coagulation testing. Patients having hematocrit values >55% require a special collection tube for coagulation studies. Please contact the laboratory at [phone] for redraw instructions. Other Topography unknown / Unknown 10/15/2024 5:53 AM EDT 10/15/2024 6:15 AM EDT Jose M Bryan Mercedes DO LAB BLOOD ORDERABLES Chloe l Result Performing Organization Address City/[facility]/ZIP Co de Phone Number [facility] [address] [place] [address], [facility] [address] [place] [address] * PROTEIN ELECTRO, RANDOM URINE (10/14/2024 5:00 PM EDT) PROTEIN, TOTAL, URINE 19.9 Not Estab. mg/dL 10/18/2024 4:08 PM EDT [facility] ALBUMIN, URINE 6.9 . % 10/18/2024 4:08 PM EDT [facility] MJVFM-4-GXSBUEPP, URINE 2.9 . % 10/18/2024 4:08 PM EDT [facility] ORTSM-2-FJWSUMON, URINE 33.9 . % 10/18/2024 4:08 PM EDT [facility] BETA GLOBULIN, URINE 29.0 . % 10/18/2024 4:08 PM EDT [facility] GAMMA GLOBULIN, URINE 27.3 . % 10/18/2024 4:08 PM EDT [facility] M-SPIKE % 5.0 Not Observed % 10/18/2024 4:08 PM EDT [facility] Comment:Alpha 2 and beta reg ions appear asymmetrical. PLEASE NOTE: Comment . 10/18/2024 4:08 PM EDT [facility] Comment: Protein electrophoresis scan will follow via computer, mail, or advertising representative delivery. Performed at: [address] [id number] Sports Writer: Abel Finnegan PhD, Phone: [phone] Other 10/14/2024 5:00 PM EDT 10/14/2024 5:08 PM EDT Jose M Mercedes DO LAB BLOOD ORDERABLES Chloe l Result Performing Organization Address City/[facility]/ZIP Co de Phone Number [address] [place] [address], [place] * H PANEL TO NEOGENOMIC (10/14/2024 12:20 PM EDT) [facility] PANEL TO NEOGENOMIC 10/16/2024 8:38 AM EDT [facility] Comment:See report. Scanned copy available in EMR. Other Topography unknown / Unknown 10/14/2024 12:20 PM EDT 10/14/2024 12:30 PM EDT Jose M Mercedes DO LAB BLOOD ORDERABLES Chloe l Result Performing Organization Address City/[facility]/ZIP Co de Phone Number [facility] [address] [place] [address], [facility] [address] [place] [address] * FREE K+L LT CHAINS, QN, S (10/14/2024 12:20 PM EDT) [facility] FREE KAPPA LIGHT CHAINS, S 66.0 3.3 - 19.4 mg/L 10/15/2024 2:36 PM EDT [facility] FREE LAMBDA LIGHT CHAINS, S 63.7 5.7 - 26.3 mg/L 10/15/2024 2:36 PM EDT [facility] KAPPA/LAMBDA RATIO, S 1.04 0.26 - 1.65 10/15/2024 2:36 PM EDT [facility] Comment: Performed at: [address] [id number] Sports Writer: Abel Finnegan PhD, Phone: [phone] Other Topography unknown / Unknown 10/14/2024 12:20 PM EDT 10/14/2024 12:30 PM EDT Narrative [facility] - 10/16/2024 4:08 PM EDT OK TO DO IN THE AM FOR MORNING ROUNDS, PER SOPHIE DAVIS, PLS.@ [facility] DATE was changed from 10/14/24 to 10/15/24 Jose M Mercedes DO LAB BLOOD ORDERABLES Chloe l Result [place] [id number], * IMMUNOFIXATION,SERUM ([facility]) (10/14/2024 12:20 PM EDT) [facility] IMMUNOFIXATION, SERUM Comment: . 10/16/2024 4:08 PM EDT [facility] Comment: Presence of monoclonal protein is unclear at this time. Suggest repeat in 3 to 6 months if clinically indicated. IMMUNOGLOBULIN G 980 586 - 1,602 mg/dL 10/16/2024 4:08 PM EDT [facility] IMMUNOGLOBULIN A, SERUM 397 87 - 352 mg/dL 10/16/2024 4:08 PM EDT [facility] IMMUNOGLOBULIN M, SERUM 166 26 - 217 mg/dL 10/16/2024 4:08 PM EDT [facility] Comment: Performed at: - [facility] [id number] Sports Writer: Abel Finnegan PhD, Phone: [phone] Other Topography unknown / Unknown 10/14/2024 12:20 PM EDT 10/14/2024 12:30 PM EDT Narrative [facility] - 10/16/2024 4:08 PM EDT OK TO DO IN THE AM FOR MORNING ROUNDS, PER SOPHIE DAVIS, PLS.@ ISA[facility] DATE was changed from 10/14/24 to 10/15/24 us Jose M Mercedes DO LAB BLOOD ORDERABLES Chloe bauman Result [facility] [address] [place] [address], * Protein electrophoresis, serum (10/14/2024 12:20 PM EDT) Pathologist [facility] TOTAL PROTEIN, SERUM 6.3 6.0 - 8.5 g/dL 10/15/2024 1:08 PM EDT [facility] ALBUMIN, SERUM 1.8 2.9 - 4.4 g/dL 10/15/2024 1:08 PM EDT [facility] UWRTT-8-GGJHDLUY 0.8 0.0 - 0.4 g/dL 10/15/2024 1:08 PM EDT [facility] XHXMX-6-CMRKSGOO 1.6 0.4 - 1.0 g/dL 10/15/2024 1:08 PM EDT [facility] BETA GLOBULIN 1.1 0.7 - 1.3 g/dL 10/15/2024 1:08 PM EDT [facility] GAMMA GLOBULIN 1.0 0.4 - 1.8 g/dL 10/15/2024 1:08 PM EDT [facility] M-SPIKE Comment: Not Observed g/dL 10/15/2024 1:08 PM EDT [facility] Comment: SPE shows asymmetrical beta. Suggest serum BIRDIE and free light chain analysis for further evaluation. GLOBULIN, TOTAL 4.5 2.2 - 3.9 g/dL 10/15/2024 1:08 PM EDT [facility] A/G RATIO 0.4 0.7 - 1.7 10/15/2024 1:08 PM EDT [facility] SPE-NOTE Comment . 10/15/2024 1:08 PM EDT [facility] Comment: Protein electrophoresis scan will follow via computer, mail, or advertising representative delivery. Performed at: [address] [id number] Sports Writer: Abel Finnegan PhD, Phone: [phone] Other Topography unknown / Unknown 10/14/2024 12:20 PM EDT 10/14/2024 12:30 PM EDT Narrative [facility] - 10/16/2024 4:08 PM EDT OK TO DO IN THE AM FOR MORNING ROUNDS, PER SOPHIE DAVIS, PLS.@ [facility] DATE was changed from 10/14/24 to 10/15/24 Jose M Mercedes DO LAB BLOOD ORDERABLES Chloe l Result Performing Organization Address City/[facility]/ZIP Co de Phone Number [facility] [address] [place] [address], * (ABNORMAL) Haptoglobin (10/14/2024 12:20 PM EDT) HAPTOGLOBIN >400(H) 44 - 215 mg/dL 10/14/2024 1:34 PM EDT [facility] Other Topography unknown / Unknown 10/14/2024 12:20 PM EDT 10/14/2024 12:30 PM EDT Jose M Mercedes DO LAB BLOOD ORDERABLES Chloe l Result [facility] [address] [place] [address], [facility] [address] [place] [address] * RETICULOCYTE PCT AUTO (09/30/2024 8:42 AM [...] ALL SED RATE (09/30/2024 8:42 AM EDT) [facility] SED RATE >130(H) <=20 mm/hr [facility] 09/30/2024 8:42 AM EDT 09/30/2024 8:49 AM EDT Narrative [facility] - 09/30/2024 9:05 AM EDT Generic External Data Provider [facility] F inal Result Performing Organization Address [facility]/ZIP Co de Phone Number [facility] * (ABNORMAL) ALL CBC WITH AUTO DIFF (09/30/2024 8:42 AM EDT) [facility] WBC 25.4(H) 4.0 - 11.0 10 3/uL [...] CLINISYNC F inal Result Performing Organization Address [facility]/ZIP Co de Phone Number [facility] * CT ABDOMEN/PELVIS WITH CONTRAST (09/22/2024 [...] AT 5 DAYS.^NO GROWTH AT 5 DAYS. [facility] 09/18/2024 1:30 PM EDT 09/18/2024 1:37 PM EDT Narrative [facility] - 09/23/2024 3:26 PM EDT PEDS BOTTLE Generic External Data Provider LAB BLOOD ORDERAB LES Final Result Performing Organization Address [facility]/ZIP Co de Phone Number [facility] * BLOOD CULTURE 1 (09/18/2024 1:22 PM EDT) BLOOD CULTURE 1 Blood Culture 1 NG5D NO GROWTH AT 5 DAYS.^NO GROWTH AT 5 DAYS. [facility] 09/18/2024 1:22 PM EDT 09/18/2024 1:36 PM EDT Narrative [facility] - 09/23/2024 3:25 PM EDT PEDS BOTTLE Generic External Data Provider LAB BLOOD ORDERAB LES Final Result [facility] * LOWER RESPIRATORY CULTURE (09/18/2024 9:53 AM EDT) LOWER RESPIRATORY CULTURE Lower Respiratory Culture WILL FOLLOW [facility] LOWER RESPIRATORY CULTURE Routine respiratory luke [facility] LOWER RESPIRATORY CULTURE [facility]: [facility] LOWER RESPIRATORY CULTURE [address] [place], [place] [id number] [facility] LOWER RESPIRATORY CULTURE Sports Writer: Abel Finnegan PhD, Phone: [phone] TB 09/18/2024 9:53 AM EDT 09/18/2024 10:37 AM EDT Narrative [facility] - 09/21/2024 9:07 PM EDT us Generic External Data Provider LAB BLOOD ORDERAB LES Final Result Performing Organization Address [facility] Co de Phone Number [facility] * GRAM STAIN EVALUATION (09/18/2024 9:53 AM EDT) GRAM STAIN EVALUATION Gram Stain Evaluation This specimen is of good quality and is acceptable for routine TB GRAM STAIN EVALUATION bacterial culture. TB 09/18/2024 9:53 AM EDT 09/18/2024 10:37 AM EDT Narrative [facility] - 09/21/2024 9:07 PM EDT us Generic External Data Provider LAB BLOOD ORDERAB LES Final Result Performing Organization Address [facility] Co de Phone Number [facility] * RESULT 4 (09/18/2024 9:53 AM EDT) RESULT 4 Result 4 WAITER/WAITRESS COUNTER TB 09/18/2024 9:53 AM EDT 09/18/2024 10:37 AM EDT Narrative [facility] - 09/21/2024 9:07 PM EDT us Generic External Data Provider LAB BLOOD ORDERAB LES Final Result Performing Organization Address [facility] Co de Phone Number [facility] * RESULT 3 (09/18/2024 9:53 AM [...] ORDERAB LES Final Result Performing Organization Address [facility]/ZIP Co de Phone Number [facility] * RESULT 1 (09/18/2024 9:53 AM EDT) RESULT 1 Result 1 Many gram positive cocci. [facility] 09/18/2024 9:53 AM EDT 09/18/2024 10:37 AM EDT Narrative [facility] - 09/21/2024 9:07 PM EDT us Generic External Data Provider LAB BLOOD ORDERAB LES Final Result Performing Organization Address [facility]/ZIP Co de Phone Number [facility] * EPITHELIAL CELLS (09/18/2024 9:53 AM EDT) EPITHELIAL CELLS Epithelial Cells Few [facility] 09/18/2024 9:53 AM EDT 09/18/2024 10:37 AM EDT Narrative [facility] - 09/21/2024 9:07 PM EDT us Generic External Data Provider LAB BLOOD ORDERAB LES Final Result Performing Organization Address City/[facility]/ZIP Co de Phone Number [facility] * [...] IMG XR PROCEDURES Final Result * (ABNORMAL) [facility] URINALYSIS, WITH MICROSCOPIC (09/16/2024 1:21 AM EDT) [...] STL-IMP Negative Negative 10/21/2023 5:33 PM EDT [employer] (CLIA #:[id number]) Comment: NEGATIVE TEST RESULT. A negative Cologuard [...] (Ousmane Buitrago al, N Engl J Med 2014;370(14):5377-2113) The normal value (reference range) for this assay is negative. COLOGUARD RE-SCREENING RECOMMENDATION: Periodic colorectal cancer screening is an important part of preventive healthcare for asymptomatic individuals at average risk for colorectal cancer. Following a negative Cologuard result, the [place] Cancer Society and U.S. Multi-Society Task Force screening guidelines recommend a Cologuard re-screening interval of 3 years. References: [place] Cancer Society Guideline for Colorectal Cancer Screening: https://www.cancer.org/cancer/udcfk-wunhge-ejzgrl/comhyymec-dlymnweci-ucraapg/ac s-rec ommendations.html.; Jonathan DK, John CR, Ciro AdamsK, Colorectal Cancer Screening: Recommendations for Physicians and Patients from the U.S. Multi-Society Task Force on Colorectal Cancer Screening , Am J Gastroenterology 2017; 112:5485-5401. TEST DESCRIPTION: Composite algorithmic analysis of stool [...] (Ousmane Buitrago al, N Engl J Med 2014;370(14):5988-9652.) Cologuard may produce a false negative or false positive result (no colorectal cancer or precancerous polyp present at colonoscopy follow up). A negative Cologuard test result does not guarantee the absence of CRC or advanced adenoma (pre-cancer). The current Cologuard screening interval is every 3 years. ([place] Cancer Society and U.S. Multi-Society Task Force). Cologuard performance data in a 10,000 patient pivotal study using colonoscopy as the reference method can be accessed at the following location: www.[employer].com/results. Additional description of the Cologuard test process, warnings and precautions can be found at www.colElixir Medicalrd.com. Stool specimen (specimen) 10/09/2023 1:30 PM EDT 10/11/2023 8:01 AM EDT Domi Altamirano NP LAB MOLECULAR DIAGNOSTICS ORDER DEANDRE Final Result [employer] (CLIA #:[id number]) [address] [address], [employer] (CLIA #:[id number]) [address] [place] [address] * MM TOMOSYNTHESIS SCREENING BI (09/25/2023 3:19 PM EDT) Anatomical Region Laterality Modality Other 09/25/2023 3:19 PM EDT Narrative 09/25/2023 3:20 [place] [address] Mammography Report Signed Patient: RYLEE BURTON MR#: [id number] : 1975 Acct:[id number] Age/Sex: 48 / F ADM Date: 09/24/23 Loc: MAMMO Attending Dr: Domi Altamirano NP Ordering Physician: Domi Altamirano NP Results: Date of Service: 09/24/23 Follow Up: Procedure(s): MM tomosynthesis screening BI Accession Number(s): [id number] cc: Domi Altamirano NP Patient Name: RYLEE BURTON MR#: [id number] : 1975 Exam Date: 09/24/2023 Ordering Doctor: [...] lymphoma cancer at age 63. LOCATION: [facility] BREAST COMPOSITION: The breasts are heterogeneously dense,which [...] Signed By: 09/25/23 1520 DD/ 1519 TD/TT: Dba Developer: Procedure Note Radiology, Radiologist, MD - 09/25/2023 [place] [address] Mammography Report Signed Patient: RYLEE BURTON KMR#: [id number] : 1975Acct:[id number] Age/Sex: 48 / FADM Date: 09/24/23 Loc: MAMMO Attending Dr: Domi Altamirano NP Ordering Physician: Domi Altamirano NPResults: Date of Service: 09/24/23Follow Up: Procedure(s): MM tomosynthesis screening BI Accession Number(s): [id number] cc: Domi Altamirano NP Patient Name: RYLEE BURTON MR#: [id number] : 1975 Exam Date: 09/24/2023 Ordering Doctor: [...] lymphoma cancer at age 63. LOCATION: [facility] BREAST COMPOSITION: The breasts are heterogeneously dense,which [...] M.D. Signed By:09/25/23 1520 DD/ 1519 TD/TT: Dba Developer: Domi Altamirano WAITER/WAITRESS COUNTER [facility] Final Result * Diabetic Retinopathy Screening - OU - Both Eyes (09/25/2023 8:54 AM EDT) Anatomical Region Laterality Modality Head Other us Seven Leon OD OPHTH PHOTOGRAPHY Final Result from Last 3 Months or Most Recently Relevant to Health Maintenance Insurance * Guarantor: Rylee Burton Account Type Relation to Patient Date of Phone Billing Address Personal/Family Self 1975 [address] [facility] [address] [place] [address] [facility] Care Teams Distribution A Class Lineman Relationship Specialty Start Date End Date Domi Altamirano NP [address] [place] [address] PCP - [place] [employer] 08/24/24 Unallocated, Noms Provider, [address] [place] [address] PCP - General Family Medicine 10/14/24
--- OUTSIDE RECORDS SUMMARY | 2024-12-04 12:27 | XMS_ITS | Encounter Summary ---
Author Organization [facility] Address [address] [place] [address] Care Team Providers Care Tobacco Drier Operator Name Role Phone Domi Altamirano CEO AND [employer] FOUNDER Unavailable [phone] Hiren Horton MD Primary Care Provider [phone] Domi Altamirano CEO AND CO FOUNDER Unavailable [phone] Domi Altamirano NP Unavailable [phone] Unallocated, Noms Provider Primary Care Provi taylor Encounter Details Date Type Department Care Team (Late st Contact Info) Description 10/03/2023 Orders Only [facility] [address] [place] [address] Orly Rushing MD [address] [place] [address] Social History Tobacco Use Types [...] on filedocumented in this encounter Care Teams Tobacco Drier Operator Relationship Specialty Start Date End Date Hiren Horton MD PCP - General Family Medicine 07/26/23 10/13/24 Domi Altamirano NP [address] [place] [address] PCP - [facility] 08/24/24 Unallocated, Noms Provider, [address] [place] [address] PCP - General Family Medicine 10/14/24 Domi Altamirano NP Nurse Practitioner Family Medicine 03/26/22 10/13/24 Domi Altamirano NP Nurse Practitioner Family Medicine 07/26/23 10/13/24 documented as of this encounter
[2024-12-04 13:08] LABS: Hematocrit 30.5 % (36.0-48.0); Hemoglobin 9.2 g/dL (12.0-16.0); Mean Corpuscular HGB Conc 30.2 g/dL (29.9-35.2); Mean Corpuscular Hemoglobin 29.5 pg (26.7-34.0); Mean Corpuscular Volume 97.8 fL (81.0-99.0); Platelet Count 812 10^3/uL (150-450); Red Blood Count 3.12 10^6/uL (4.20-5.40); White Blood Count 23.1 10^3/uL (4.0-11.0)
[2024-12-04 14:49] LABS: Band Neutrophils Absolute 0.2 10^3/uL (0.0-0.3); Basophils Abs Manual 0.00 10^3/uL (0.00-0.10); Basophils Percent Manual 0.0 % (0.2-2.0); Eosinophils Absolute Manual 0.00 10^3/uL (0.00-0.70); Eosinophils Percent Manual 0.0 % (0.9-7.0); Lymphocytes Absolute Manual 3.46 10^3/uL (1.20-3.80); Lymphocytes Percent Manual 15.0 % (20.5-60.0); Monocytes Absolute Manual 1.61 10^3/uL (0.30-0.80); Monocytes Percent Manual 7.0 % (1.7-12.0); Segmented Neut Absolute Manual 17.78 10^3/uL (1.4-6.5); Segmented Neutrophils % Manual 77.0 (43.0-75.0)
[2024-12-04 14:51] LABS: Anisocytosis 1+
== END 2024-12-04 12:21 | disposition home or self-care (01) ==
PROVIDERS: PCP Family Medicine; Visit Provider Internal Medicine
DX: D64.9 Anemia, unspecified (principal)
CPT/HCPCS: 36415; 85007; 85027

== ENCOUNTER 2024-12-05 22:27 | Emergency (ER) | payer BC, SELFPAY ==
[2024-12-05 22:30] VITALS: BP 126/85; PULSE 120; TEMP 36.8; O2SAT 99; BMI 13.3
[2024-12-05 23:51] VITALS: BP 127/82; PULSE 124; O2SAT 98
[2024-12-05 23:52] VITALS: O2SAT 98
[2024-12-05 23:58] VITALS: O2SAT 95
[2024-12-06] VITALS (47 sets, daily range): BP systolic 130–168; BP diastolic 72–109; PULSE 119–133; TEMP 36.6; O2SAT 90–99
--- NOTE | 2024-12-06 00:03 | ED_ITS ---
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 being treated multiple times with fentanyl and Dilaudid her pain control is her main concern at the moment and it was noted even when placing an IV access the patient by US pt is not tolerant to pain. Spoke with the patient again and explained to her the importance of the CAT scan she said that she will give us only 1 try and she will not again do any other imaging after that I did take the patient to the CT angio but apparently the right arm IV got infiltrated although the patient was getting IV fluid through that line before with no problem The patient does not want any further imaging at the moment and although I did explain to her the importance of it but looking at her medication the patient heart rate responded to the beta-jaylyn that she usually takes which she did not take today was provide with metoprolol succinate 100 mg daily, the patient heart rate was noted to be 118 on November 28 and 124 and November 27 and 128 on December 06 the patient always has been tachycardic and seems like she have a baseline tachycardia With the fact that the patient recently had a CT of the chest and the fact that the pain is not in her chest and in her lower back mostly toward the flank area and the fact that she is not hypoxemic and she have no difficulty breathing , it would be appropriate to wait until the patient is evaluated in [facility] as she did definitely permanent vascular access especially with her history of oncology evaluation for myeloproliferative disease 5:02 PM I presented to bedside to speak with the patient she does not want to be poked again for another IV and mentioned that the pain is all over is not in her chest and it is in her bone which could be secondary to the myleproliferative disease Patient provided with her metoprolol succinate 100 mg 6:55 PM; presented again to the bedside to explain to the patient if she would be agreeable to have a central line to have the CT angio of the chest but she mentioned that she just want a permanent think like a port she does not want to be poked anymore, she denies any chest pain or any difficulty breathing she mentioned that the pain in her body bone all over Lab Data Labs: Lab Results 09/13/25 09/13/25 09/13/25 Range/Units 00:17 01:45 06:56 WBC 26.8 H (4.0-11.0) 10^3/uL RBC 2.35 L (4.20-5.40) 10^6/uL Hgb 6.8 L* D (12.0-16.0) g/dL Hct 22.3 L* (36.0-48.0) % MCV 94.9 (81.0-99.0) fL MCH 28.9 (26.7-34.0) pg MCHC 30.5 (29.9-35.2) g/dL RDW 17.7 H (11.0-15.0) % Plt Count 1042 H* (150-450) 10^3/uL MPV 8.7 L (9.5-13.5) fL Neut % (Auto) (43.0-75.0) % Lymph % (Auto) (20.5-60.0) % [place] % (Auto) (1.7-12.0) % Eos % (Auto) (0.9-7.0) % Baso % (Auto) (0.2-2.0) % Neut # (Auto) (1.4-6.5) 10^3/uL Lymph # (Auto) (1.2-3.8) 10^3/uL [place] # (Auto) (0.3-0.8) 10^3/uL Eos # (Auto) (0.0-0.7) 10^3/uL Baso # (Auto) (0.0-0.1) 10^3/uL Abs Immat Gran (auto) (0.00-0.03) 10^3/uL Seg Neuts % (Manual) 85.0 H (43.0-75.0) Band Neutrophils % 1.0 (0-5) % Lymphocytes % (Manual) 7.0 L (20.5-60.0) % Monocytes % (Manual) 7.0 (1.7-12.0) % Eosinophils % (Manual) 0.0 L (0.9-7.0) % Basophils % (Manual) 0.0 L (0.2-2.0) % Imm/Tot Granulo (auto) (0.0-0.5) % Neutrophils # (Manual) 22.78 H (1.4-6.5) 10^3/uL Band Neutrophils # 0.3 (0.0-0.3) 10^3/uL Lymphocytes # (Manual) 1.87 (1.20-3.80) 10^3/uL Monocytes # (Manual) 1.87 H (0.30-0.80) 10^3/uL Eosinophils # (Manual) 0.00 (0.00-0.70) 10^3/uL Basophils # (Manual) 0.00 (0.00-0.10) 10^3/uL D-Dimer 1.12 H* (<=0.59) mg/L FEU Sodium 133 L (136-145) mmol/L Potassium 3.1 L (3.5-5.1) mmol/L Chloride 96 L (98-107) mmol/L Carbon Dioxide 26.3 (21.0-32.0) mmol/L Anion Gap 13.8 BUN 9.0 (7.0-18.0) mg/dL Creatinine 0.44 L (0.55-1.02) mg/dL Est GFR ( Amer) >60 (>=60 mL/min/1.73m^2) Est GFR (Non-Af Amer) >60 (>=60 mL/min/1.73m^2) BUN/Creatinine Ratio 20.5 Glucose 159 H (74-106) mg/dL Lactate 0.3 L (0.4-2.0) mmol/L Calcium 8.6 (8.5-10.1) mg/dL Total Bilirubin 0.7 (0.2-1.0) mg/dL AST 12 L (15-37) U/L ALT 11 L (14-59) U/L Alkaline Phosphatase 416 H (46-116) U/L Troponin I High Sens <4.0 L <4.0 L (4.0-51.3) pg/mL NT-Pro-B Natriuret Pep 2763.0 H* (<=900.0) pg/mL Total Protein 6.7 (6.4-8.2) g/dL Albumin 1.0 L (3.4-5.0) g/dL Globulin 5.7 g/dL Albumin/Globulin Ratio 0.2 Urine Color Yellow (YELLOW) Urine Clarity Clear (CLEAR) Urine pH 6.0 (5.0-9.0) Ur Specific [place] 1.025 (1.005-1.025) Urine Protein 100 A (NEG/TRACE) mg/dL Urine Glucose (UA) Negative (NEGATIVE) mg/dL Urine Ketones 15 A (NEGATIVE) mg/dL Urine Occult Blood Small A (NEGATIVE) Urine Nitrite Negative (NEGATIVE) Urine Bilirubin Small A (NEGATIVE) Urine Urobilinogen 2.0 A (0.2-1.0) EU/dL Ur Leukocyte Esterase Trace A (NEGATIVE) Urine RBC 0-2 (0-2) #/HPF Urine WBC 0-2 A (NONE SEEN) #/HPF Ur Squamous Epith Cells Few A (NONE/RARE) #/LPF Urine Crystals None seen (None Seen) #/HPF Urine Bacteria Trace A (NONE SEEN) #/HPF Urine Casts None seen (NONE SEEN) #/LPF Urine Mucus None seen (NONE SEEN) Ur Culture Indicated? No 12/06/24 Range/Units 15:08 WBC 21.5 H (4.0-11.0) 10^3/uL RBC 2.44 L (4.20-5.40) 10^6/uL Hgb 7.3 L (12.0-16.0) g/dL Hct 23.6 L* (36.0-48.0) % MCV 96.7 (81.0-99.0) fL MCH 29.9 (26.7-34.0) pg MCHC 30.9 (29.9-35.2) g/dL RDW 17.8 H (11.0-15.0) % Plt Count 821 H (150-450) 10^3/uL MPV 9.6 (9.5-13.5) fL Neut % (Auto) 73.8 (43.0-75.0) % Lymph % (Auto) 12.5 L (20.5-60.0) % [place] % (Auto) 10.2 (1.7-12.0) % Eos % (Auto) 0.0 L (0.9-7.0) % Baso % (Auto) 0.1 L (0.2-2.0) % Neut # (Auto) 15.8 H (1.4-6.5) 10^3/uL Lymph # (Auto) 2.7 (1.2-3.8) 10^3/uL [place] # (Auto) 2.2 H (0.3-0.8) 10^3/uL Eos # (Auto) 0.0 (0.0-0.7) 10^3/uL Baso # (Auto) 0.0 (0.0-0.1) 10^3/uL Abs Immat Gran (auto) 0.73 H (0.00-0.03) 10^3/uL Seg Neuts % (Manual) (43.0-75.0) Band Neutrophils % (0-5) % Lymphocytes % (Manual) (20.5-60.0) % Monocytes % (Manual) (1.7-12.0) % Eosinophils % (Manual) (0.9-7.0) % Basophils % (Manual) (0.2-2.0) % Imm/Tot Granulo (auto) 3.4 H (0.0-0.5) % Neutrophils # (Manual) (1.4-6.5) 10^3/uL Band Neutrophils # (0.0-0.3) 10^3/uL Lymphocytes # (Manual) (1.20-3.80) 10^3/uL Monocytes # (Manual) (0.30-0.80) 10^3/uL Eosinophils # (Manual) (0.00-0.70) 10^3/uL Basophils # (Manual) (0.00-0.10) 10^3/uL D-Dimer (<=0.59) mg/L FEU Sodium 136 (136-145) mmol/L Potassium 3.2 L (3.5-5.1) mmol/L Chloride 99 (98-107) mmol/L Carbon Dioxide 25.2 (21.0-32.0) mmol/L Anion Gap 15.0 BUN 6.0 L (7.0-18.0) mg/dL Creatinine 0.36 L (0.55-1.02) mg/dL Est GFR ( Amer) >60 (>=60 mL/min/1.73m^2) Est GFR (Non-Af Amer) >60 (>=60 mL/min/1.73m^2) BUN/Creatinine Ratio 16.7 Glucose 108 H (74-106) mg/dL Lactate 0.3 L (0.4-2.0) mmol/L Calcium 9.0 (8.5-10.1) mg/dL Total Bilirubin (0.2-1.0) mg/dL AST (15-37) U/L ALT (14-59) U/L Alkaline Phosphatase (46-116) U/L Troponin I High Sens (4.0-51.3) pg/mL NT-Pro-B Natriuret Pep (<=900.0) pg/mL Total Protein (6.4-8.2) g/dL Albumin (3.4-5.0) g/dL Globulin g/dL Albumin/Globulin Ratio Urine Color (YELLOW) Urine Clarity (CLEAR) Urine pH (5.0-9.0) Ur Specific [place] (1.005-1.025) Urine Protein (NEG/TRACE) mg/dL Urine Glucose (UA) (NEGATIVE) mg/dL Urine Ketones (NEGATIVE) mg/dL Urine Occult Blood (NEGATIVE) Urine Nitrite (NEGATIVE) Urine Bilirubin (NEGATIVE) Urine Urobilinogen (0.2-1.0) EU/dL Ur Leukocyte Esterase (NEGATIVE) Urine RBC (0-2) #/HPF Urine WBC (NONE SEEN) #/HPF Ur Squamous Epith Cells (NONE/RARE) #/LPF Urine Crystals (None Seen) #/HPF Urine Bacteria (NONE SEEN) #/HPF Urine Casts (NONE SEEN) #/LPF Urine Mucus (NONE SEEN) Ur Culture Indicated? Discharge Plan Discharge Chief Complaint: Abdominal Pain Clinical Impression: Anemia, MPN (myeloproliferative neoplasm), Nausea & vomiting, Chest pain Prescriptions / Home Meds: No Action albuterol sulfate 90 mcg/actuation HFA aerosol inhaler 2 puff INHALATION Q6H PRN (Reason: shortness of breath or wheezing) losartan 50 mg tablet 50 mg PO DAILY metoprolol tartrate 50 mg tablet 50 mg PO BID gabapentin 600 mg tablet 600 mg PO Q8H Qty: 90 2RF oxycodone 5 mg tablet 5 mg PO Q6H PRN (Reason: pain) acetaminophen 500 mg tablet 1,000 mg PO Q6H promethazine 25 mg tablet 25 mg PO TID PRN (Reason: nausea and vomiting) potassium chloride 20 mEq tablet extended release 20 meq PO TID Rx Instructions: WITH FOOD polyethylene glycol 3350 17 gram Powder In Packet 17 g PO QD 30 Days Qty: 30 0RF amoxicillin-pot clavulanate [Augmentin] 500-125 mg tablet 1 tab PO BID Qty: 10 0RF metoprolol succinate 100 mg capsule,sprinkle,ER 24hr 100 mg PO DAILY Qty: 30 2RF dapagliflozin propanediol [Farxiga] 10 mg tablet 10 mg PO DAILY Qty: 30 2RF omeprazole 40 mg capsule,delayed release(DR/EC) Print Language: Norwegian Referrals: Nakul Swenson MD [Primary Care Provider, Family Practice] - 1 week
[2024-12-06] MEDS: KETOROLAC TROMETHAMINE 30 MG/ML VIAL IVP (00:44)
[2024-12-06 00:55] LABS: Glucose Urine UA NEGATIVE (NEGATIVE)
[2024-12-06 00:58] LABS: Cast Seen? NONE SEEN #/LPF (NONE SEEN); Crystals Seen? None Seen #/HPF (None Seen); Urine Culture Indicated NO
--- NOTE | 2024-12-06 01:42 | PC.NURSE ---
patient was brought to the ED by EMS for pain She was taken to the triage room due to not having a room available She was very unhappy having to go to the waiting room, she stated Why can't I just go upstairs, I'm going to be admitted anyway It was explained to her that it does not work that way, and she had to wait for a room like everyone else. While in the waiting area, she continued to tell the other patients that she was going to pass out and that she felt like she was going to so that they would tell the registration staff to call back to the ED nurses. the nursing staff would check on her each time, and once finding her okay, remind her that as soon as a room was available, we would bring her back. Once brought back to a room, her vital signs were rechecked and remained WNL apart from her heart rate. She was complaining of back paiin that she thought was from a kidney infection, but also chronic, generalized pain.
[2024-12-06 01:51] LABS: Mean Corpuscular HGB Conc 30.5 g/dL (29.9-35.2); Mean Corpuscular Hemoglobin 28.9 pg (26.7-34.0); Mean Corpuscular Volume 94.9 fL (81.0-99.0); Red Blood Count 2.35 10^6/uL (4.20-5.40); White Blood Count 26.8 10^3/uL (4.0-11.0)
[2024-12-06 01:54] LABS: Hematocrit 22.3 % (36.0-48.0); Hemoglobin 6.8 g/dL (12.0-16.0); Platelet Count 1042 10^3/uL (150-450)
[2024-12-06 02:02] LABS: Alanine Aminotransferase 11 U/L (14-59); Albumin Globulin Ratio 0.2; Albumin Level 1.0 g/dL (3.4-5.0); Alkaline Phosphatase 416 U/L (46-116); Anion Gap 13.8; Aspartate Amino Transferase 12 U/L (15-37); Blood Urea Nitrogen 9.0 mg/dL (7.0-18.0); Calcium 8.6 mg/dL (8.5-10.1); Carbon Dioxide 26.3 mmol/L (21.0-32.0); Chloride 96 mmol/L (98-107); Estimated GFR (African America >60 (>=60 mL/min/1.73m^2); Estimated GFR (Non-African Ame >60 (>=60 mL/min/1.73m^2); Globulin 5.7 g/dL; Glucose 159 mg/dL (74-106); Potassium 3.1 mmol/L (3.5-5.1); Sodium 133 mmol/L (136-145); Total Protein 6.7 g/dL (6.4-8.2)
[2024-12-06 05:42] LABS: Lactate/Lactic Acid 0.3 mmol/L (0.4-2.0)
[2024-12-06 05:48] LABS: Band Neutrophils Absolute 0.3 10^3/uL (0.0-0.3); Basophils Abs Manual 0.00 10^3/uL (0.00-0.10); Basophils Percent Manual 0.0 % (0.2-2.0); Eosinophils Absolute Manual 0.00 10^3/uL (0.00-0.70); Eosinophils Percent Manual 0.0 % (0.9-7.0); Lymphocytes Absolute Manual 1.87 10^3/uL (1.20-3.80); Lymphocytes Percent Manual 7.0 % (20.5-60.0); Monocytes Absolute Manual 1.87 10^3/uL (0.30-0.80); Monocytes Percent Manual 7.0 % (1.7-12.0); Segmented Neut Absolute Manual 22.78 10^3/uL (1.4-6.5); Segmented Neutrophils % Manual 85.0 (43.0-75.0)
--- NOTE | 2024-12-06 05:51 | XR_ITS ---
[facility] [place] [id number] Patient Name: JAIME BURTON MRN: [id number] date: 1975 Sex: F Assigned Patient Location: ER Current Patient Location: ER Accession/Order Number: [id number] Exam Date: 12/06/2024 06:20 Report Date: 12/06/2024 09:11 At the request of: ALAN KAPLAN MD Procedure: XR chest 1V Plain film chest Single view HISTORY: Chest pain COMPARISON: 11/26/2024 FINDINGS: SUPPORT DEVICES: None POSTSURGICAL CHANGES: None HEART: Within normal limits PULMONARY YULISSA: Within normal limits MEDIASTINUM: Unremarkable LUNGS AND PLEURA: No acute lung process, pleural effusion or pneumothorax identified. BONY STRUCTURES: Intact ADDITIONAL FINDINGS None XR/XR chest 1V IMPRESSION: No acute process. Impression dictated by: Abran Matthews M.D. 12/06/2024 9:11 AM Dictation Location: [place] [address] Electronically authenticated by: [id number] Y Date: 12/06/2024 09:11
[2024-12-06] MEDS: 0.9 % SODIUM CHLORIDE 1,000 ML 75 ML IV (06:03)
[2024-12-06] MEDS: FENTANYL CITRATE/PF 100 MCG/2 ML VIAL 50 MCG IV (06:39)
[2024-12-06] MEDS: PROMETHAZINE HCL 12.5 MG in 0.9 % SODIUM CHLORIDE 50 ML 202 MG IV (07:11)
[2024-12-06 07:37] LABS: NT Pro B Type Natriuretic Pept 2763.0 pg/mL (<=900.0)
[2024-12-06] MEDS: HYDROMORPHONE HCL 0.5 MG/0.5 ML SYRINGE IM ×2 (09:21→17:29)
[2024-12-06] MEDS: HYDROMORPHONE HCL 1 MG/ML CARTRIDGE 0.5 MG IVP (13:17)
[2024-12-06] MEDS: METOPROLOL SUCCINATE 100 MG TAB.ER.24H PO (14:50)
[2024-12-06 15:14] LABS: Hemoglobin 7.3 g/dL (12.0-16.0); Immature Granulocytes Abs Auto 0.73 10^3/uL (0.00-0.03); Immature Granulocytes Pct Auto 3.4 % (0.0-0.5); Lymphocytes Absolute Auto 2.7 10^3/uL (1.2-3.8); Mean Corpuscular HGB Conc 30.9 g/dL (29.9-35.2); Mean Corpuscular Hemoglobin 29.9 pg (26.7-34.0); Mean Corpuscular Volume 96.7 fL (81.0-99.0); Platelet Count 821 10^3/uL (150-450); Red Blood Count 2.44 10^6/uL (4.20-5.40); White Blood Count 21.5 10^3/uL (4.0-11.0)
[2024-12-06 15:19] LABS: Hematocrit 23.6 % (36.0-48.0)
[2024-12-06 15:22] LABS: Anion Gap 15.0; Blood Urea Nitrogen 6.0 mg/dL (7.0-18.0); Calcium 9.0 mg/dL (8.5-10.1); Carbon Dioxide 25.2 mmol/L (21.0-32.0); Chloride 99 mmol/L (98-107); Estimated GFR (African America >60 (>=60 mL/min/1.73m^2); Estimated GFR (Non-African Ame >60 (>=60 mL/min/1.73m^2); Glucose 108 mg/dL (74-106); Potassium 3.2 mmol/L (3.5-5.1); Sodium 136 mmol/L (136-145)
[2024-12-06 15:31] LABS: Lactate/Lactic Acid 0.3 mmol/L (0.4-2.0)
[2024-12-07] MEDS: OXYCODONE HCL/ACETAMINOPHEN 5MG/325MG 1 TAB PO ×4 (01:07→20:03)
--- NOTE | 2024-12-07 04:55 | PC.NURSE ---
Patient is given a med/surg bed to try and make her more comfortable and relieve some of her pain. She has stated several times that she is going to leave AMA because no one here cares about her and we are not doing anything to help her. She says this to me as I am medicating her and as I am in the process of switching her beds to try and make her more comfortable. She asked if I would find someone to come pick her up since she was brought here by ambulance, I told her that she was in the process of being transferred to the [facility] and is accepted and that I understand it is difficult waiting here in the ED for her bed assignment, but that I am personally doing everything I can to make her more comfortable. I also told her that if she wanted to leave AMA, we would not be helping her find a ride. She is given a drink and a pudding at this time. She says she is going to try the better bed to see if it helps the pain before leaving AMA.
[2024-12-07] MEDS: 0.9 % SODIUM CHLORIDE 1,000 ML 75 ML IV (06:21)
[2024-12-07 06:29] VITALS: BP 122/84; O2SAT 96
[2024-12-07] MEDS: CIPROFLOXACIN IN 5 % DEXTROSE 400 MG/200 ML PREMIX 200 MG IV (10:15)
[2024-12-07] MEDS: METRONIDAZOLE/SODIUM CHLORIDE 500 MG/100 ML PREMIX 100 MG IV ×2 (11:20→16:04)
[2024-12-07] MEDS: ALBUTEROL SULFATE 200 PUFF/6.7 GM INHALER IH (19:59)
[2024-12-07] MEDS: BENZONATATE 100 MG CAPSULE 200 MG PO (20:02)
[2024-12-07] MEDS: FAMOTIDINE 20 MG TABLET 40 MG PO (20:02)
--- NOTE | 2024-12-07 23:33 | PC.NURSE ---
Attempted again to flush IV access, the IV will not flush. Tried to redo dressing and flush again and still will not flush. Dr. Payne is aware and he gave verbal to change orders for cipro and Flagyl to oral. He again states that we do not need to reattempt to start another IV at this time.
[2024-12-08] MEDS: METRONIDAZOLE 250 MG TABLET 500 MG PO (00:02)
[2024-12-08] MEDS: CIPROFLOXACIN HCL 500 MG TABLET PO ×2 (00:02→08:33)
[2024-12-08] MEDS: OXYCODONE HCL/ACETAMINOPHEN 5MG/325MG 1 TAB PO ×2 (03:18→08:33)
[2024-12-08] MEDS: BENZONATATE 100 MG CAPSULE 200 MG PO (03:18)
[2024-12-08 06:36] VITALS: BP 114/72
[2024-12-08 06:37] VITALS: O2SAT 95
[2024-12-08 06:40] VITALS: BP 114/72; PULSE 97; TEMP 36.6; O2SAT 95
--- NOTE | 2024-12-08 06:44 | PC.NURSE ---
Patient resting more comfortably in bed at this time. Vitals obtained and are all WNL. She is aware that there is still no update from [facility] on a bed assignment. She states again that if she does not get a bed today that she is going to go home AMA. She is aware that if she leaves AMA, she will be forfeiting her spot on the waitlist for her bed, and that if she would return here or go to another hospital and wish to be transferred, that this entire process would start over.
[2024-12-08 07:49] LABS: Hematocrit 25.2 % (36.0-48.0); Hemoglobin 7.6 g/dL (12.0-16.0); Mean Corpuscular HGB Conc 30.2 g/dL (29.9-35.2); Mean Corpuscular Hemoglobin 29.1 pg (26.7-34.0); Mean Corpuscular Volume 96.6 fL (81.0-99.0); Platelet Count 987 10^3/uL (150-450); Red Blood Count 2.61 10^6/uL (4.20-5.40); White Blood Count 19.9 10^3/uL (4.0-11.0)
[2024-12-08 08:08] LABS: Alanine Aminotransferase 20 U/L (14-59); Albumin Globulin Ratio 0.2; Albumin Level 0.8 g/dL (3.4-5.0); Alkaline Phosphatase 460 U/L (46-116); Anion Gap 10.4; Aspartate Amino Transferase 29 U/L (15-37); Blood Urea Nitrogen 8.0 mg/dL (7.0-18.0); Calcium 8.3 mg/dL (8.5-10.1); Carbon Dioxide 29.2 mmol/L (21.0-32.0); Chloride 100 mmol/L (98-107); Estimated GFR (African America >60 (>=60 mL/min/1.73m^2); Estimated GFR (Non-African Ame >60 (>=60 mL/min/1.73m^2); Globulin 5.2 g/dL; Glucose 85 mg/dL (74-106); Sodium 137 mmol/L (136-145); Total Protein 6.0 g/dL (6.4-8.2)
[2024-12-08 08:10] LABS: Potassium 2.6 mmol/L (3.5-5.1)
--- NOTE | 2024-12-08 08:12 | ECG_ITS ---
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
[2024-12-08 08:13] LABS: Band Neutrophils Absolute 0.2 10^3/uL (0.0-0.3); Basophils Abs Manual 0.00 10^3/uL (0.00-0.10); Basophils Percent Manual 0.0 % (0.2-2.0); Eosinophils Absolute Manual 0.00 10^3/uL (0.00-0.70); Eosinophils Percent Manual 0.0 % (0.9-7.0); Lymphocytes Absolute Manual 3.18 10^3/uL (1.20-3.80); Lymphocytes Percent Manual 16.0 % (20.5-60.0); Monocytes Absolute Manual 0.39 10^3/uL (0.30-0.80); Monocytes Percent Manual 2.0 % (1.7-12.0); Segmented Neut Absolute Manual 16.11 10^3/uL (1.4-6.5); Segmented Neutrophils % Manual 81.0 (43.0-75.0)
[2024-12-08] MEDS: ASPIRIN 81 MG TAB.CHEW PO (08:33)
[2024-12-08 08:42] VITALS: PULSE 100
[2024-12-08 08:50] VITALS: PULSE 108
[2024-12-08 09:00] VITALS: PULSE 101
[2024-12-08] MEDS: POTASSIUM CHLORIDE 10 MEQ ER TABLET 40 MEQ PO (09:00)
== END 2024-12-08 09:31 | disposition home or self-care (01) ==
PROVIDERS: Internal Medicine; Emergency Provider Emergency Medicine; PCP Family Medicine
DX: R10.9 Unspecified abdominal pain (principal); N39.0 Urinary tract infection, site not specified; D75.839 Thrombocytosis, unspecified; D46.9 Myelodysplastic syndrome, unspecified; Z79.899 Other long term (current) drug therapy; R05.9 Cough, unspecified; I42.9 Cardiomyopathy, unspecified; I50.9 Heart failure, unspecified; F17.200 Nicotine dependence, unspecified, uncomplicated; R64 Cachexia; R11.2 Nausea with vomiting, unspecified; R07.9 Chest pain, unspecified; Z92.21 Personal history of antineoplastic chemotherapy
CPT/HCPCS: 36415; 71045; 74176; 80048; 80053; 81001; 83605; 83880; 84484; 85007; 85025; 85027; 85378; 93005; 93971; 96361; 96365; 96366; 96367; 96375; 96376; 99285; J0744; J1171; J1836; J1885; J2405; J2550; J2765; J3010

== ENCOUNTER 2024-12-15 14:35 | Outpatient (OUT) | payer BC, SELFPAY ==
[2024-12-15 15:36] LABS: Hematocrit 28.4 % (36.0-48.0); Hemoglobin 8.5 g/dL (12.0-16.0); Immature Granulocytes Abs Auto 0.21 10^3/uL (0.00-0.03); Immature Granulocytes Pct Auto 1.4 % (0.0-0.5); Lymphocytes Absolute Auto 3.6 10^3/uL (1.2-3.8); Mean Corpuscular HGB Conc 29.9 g/dL (29.9-35.2); Mean Corpuscular Hemoglobin 29.4 pg (26.7-34.0); Mean Corpuscular Volume 98.3 fL (81.0-99.0); Red Blood Count 2.89 10^6/uL (4.20-5.40); White Blood Count 15.5 10^3/uL (4.0-11.0)
[2024-12-15 15:53] LABS: Platelet Count 1061 10^3/uL (150-450)
== END 2024-12-15 14:36 | disposition home or self-care (01) ==
LOC: LAB 14:39
PROVIDERS: PCP Family Medicine
DX: D64.9 Anemia, unspecified (principal); D47.1 Chronic myeloproliferative disease
CPT/HCPCS: 36415; 85025

== ENCOUNTER 2024-12-16 13:26 | Emergency (ER) | payer BC, SELFPAY ==
--- OUTSIDE RECORDS SUMMARY | 2024-12-05 15:40 | XMS_ITS | Encounter Summary ---
Demographics Address [address] [facility] [address] [place] [address] Home Phone Email Address Preferred Language en Marital Status Scientology Affiliation Unknown Race White Ethnic Group Not or Lati no Author Organization [facility] Address [address] [place] [address] Care Team Providers Care Drop Wirer Name Role Phone Nakul Swenson MD Primary Care Provider [phone] Reason for Referral * (Routine) - Pending Review Specialty Diagnoses / Procedures Referred By Contac t Referred To Contact Diagnoses Cardiomyopathy, unspecified type (CMS/HCC) Procedures ECG 12 lead Ashlee Hoskins MD [address] [facility] [id number]:[place] [address] Phone: tel: fax: Referral ID Status Reason Start Date Expiration Date V isits Requested Visits Authorized [id number] Pending Review 12/05/2024 12/05/2025 1 1 * Imaging (Routine) - Pending Review Specialty Diagnoses / Procedures Referred By Contac t Referred To Contact Radiology Diagnoses Cardiomyopathy, unspecified type (CMS/HCC) Procedures CTA Heart Coronary W IV Contrast W or WO FFRct Ashlee Hoskins MD [address] [facility] [id number] [place] [address] Phone: tel: fax: Referral ID Status Reason Start Date Expiration Date V isits Requested Visits Authorized [id number] Pending Review 12/05/2024 12/05/2025 1 1 Reason for Visit * Reason Comments New Patient Patient is here toda y to establish care as a new patient. CHF recent hospital admission [facility] Congestive Heart Failure Hypertension Hyperlipidemia Encounter Details Date Type Department Care Team (Late st Contact Info) Description 12/05/2024 3:40 PM EDT Office Visit [facility] at [facility] [address] [place] [address] Ashlee Hoskins MD [address] [place] [address] Chronic systolic heart failure (CMS/HCC) (Primary Dx); Cardiomyopathy, unspecified type (CMS/HCC); Sinus tachycardia; Nonrheumatic mitral valve regurgitation; Essential hypertension, benign; Type 2 diabetes mellitus without complication, without long-term current use of insulin (CMS/HCC); Mixed hyperlipidemia; 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); Current smoker Social History Tobacco Use Types Packs/Day Years Used Date Smoking Tobacco: Every Day Cigarettes Smokeless Tobacco: Current Alcohol Use Standard Drinks/Week Comments Not Currently 0 (1 standard drink = 0.6 oz pur e alcohol) recovering alocholic Comments Unknown Sex and Gender Information Value Date Recorded Sex Assigned at Female 12/04/2024 2:11 PM EDT Legal Sex Female 10:47 PM EDT Gender Identity Female 12/04/2024 2:11 PM EDT Sexual Orientation Heterosexual or Straight 11/24 2:11 PM EDT documented as of this encounter Last Filed Vital Signs Vital Sign Reading Time Taken Comments Blood Pressure 119/79 12/05/2024 4:47 PM EDT Pulse 136 12/05/2024 4:47 PM EDT Temperature - - Respiratory Rate - - Oxygen Saturation 98% 12/05/2024 4:47 PM EDT Inhaled Oxygen Concentration - - Weight 42.2 kg (93 lb) 12/05/2024 4:47 PM EDT Height 167.6 cm (5' 6 ) 12/05/2024 4:47 PM EDT Body Mass Index 15.01 12/05/2024 4:47 PM EDT documented in this encounter Progress Notes * Ashlee Hoskins MD - 12/05/2024 3:40 PM EDT Images from the original note were not included. [place] [facility] Note Reason for cardiology visit: Hospital follow-up HPI: Rylee Merrill is a 49 y.o. female without known prior cardiac history. She has history of hypertension, hyperlipidemia, COPD, and recently diagnosed myelo proliferative disease. She was seen in [facility] on 11/26/2024 by our nurse practitioner Yaquelin Brown. The patientpresented with urosepsis, she was started on IV fluids she became fluid overloaded. Her echo showedejection fraction of 30 to 35%.. She reported intermittent episodes of chest pain and shortness of breath with exertion but she also had history of COPD/ asthma. She was offered to be transferred to complete workup for new cardiomyopathy however the patient declined. Patient also has a history of myeloproliferative disease/myelofibrosis , anemia, hypertension, and lung nodule. It was recommended to transfer metoprolol tartrate to metoprolol succinate and to resume her dose of losartan and to add Farxiga 10 mg daily. It was recommended to follow-up with cardiology as outpatient. Patient is here today for follow-up visit. Patient appears to be very frustrated because of her cancer problem. She transferred recently to a care of [facility] oncologist at [facility]. She lost about 100 pounds since she was diagnosed with the cancer and she does not feel that she improved after chemotherapy. She is not sure what is her prognosis. Patient states that prior to the recent hospitalization she did not have any chest pain or worsening exertional dyspnea. She has some baseline exertional dyspnea due to long history of smoking and COPD but she never been on oxygen. She reports that she has been very weak and she cannot do a lot of walking since she has been diagnosed with cancer. She reports feet edema since last hospital admission. Patient reports that she does not eat or drink much. She tries to to take protein shakes. She denies orthopnea or paroxysmal nocturnal dyspnea or dizziness or palpitations Patient is a heavy smoker for a long time about 1-1/2 pack/day for many years she is down down to 3to 4 cigarettes/day in, the past she used to drink alcohol and use drugs but she stopped about 10 years ago. She has past medical history of hypertension, hyperlipidemia, smoking, and diabetes mellitus Cardiology ROS: GENERAL: Denies fever, chills, night sweats, weight loss. HEENT: Denies changes in vision, photophobia, changes in hearing, epistaxis, oral bleeding. CARDIOVASCULAR: She reports chronic dyspnea on exertion due to COPD, she reports occasional sharp brief chest pain when she has worsening dyspnea. Recent feet edema. She denies orthopnea or paroxysmal nocturnal dyspnea or dizziness or palpitations RESPIRATORY: SOB, and occasional wheezing GI: Denies abdominal pain, nausea/vomiting, heartburn, melena/hematochezia. RENAL: Denies dysuria, hematuria, flank pain. MSK: She reports generalized weakness and loss of muscle mass since she was diagnosed with cancer and lost 100 pounds NEUROLOGIC: Denies LOC, weakness, numbness, headaches. SKIN: Denies abnormal rashes or bleeding. PSYCH: Denies significant anxiety, depression, sleep disturbances. Past Medical History She has a past medical history of Cancer ([facility]), CHF (congestive heart failure) ([facility]), Diabetes mellitus ([facility]), Hyperlipidemia, and Hypertension. Surgical History She has no past surgical history on file. Social History She reports that she has been smoking cigarettes. She uses smokeless tobacco. She reports that she does not currently use alcohol. She reports that she does not currently use drugs after having used the following drugs: Crack cocaine, Methamphetamines, and Marijuana. Family History Family History[1] Allergies Methylprednisolone sodium succ, Erythromycin, Latex, Methylprednisolone, and Tramadol Medications Current Medications[2] Last Recorded Vitals Visit Vitals BP 119/79 (BP Location: Left arm, Patient Position: Sitting) Pulse (!) 136 Ht 1.676 m (5' 6 ) Wt 42.2 kg (93 lb) SpO2 98% BMI 15.01 kg/m?? Smoking Status Every Day BSA 1.4 m?? Physical Examination: GENERAL: alert and oriented x3, cachectic appearance, in no acute distress. HEAD: atraumatic, normocephalic. EYES: MITCH, EOMI. NECK: trachea midline, no JVD present, no carotid bruits present. CARDIAC: S1, S2 present. RRR. Tachycardia, No murmur, rubs, or gallops. RESPIRATORY: CTAB, no increased effort of breathing, no rales, rhonchi, or wheezing. ABDOMEN: soft, nontender, nondistended. EXTREMITIES: Mild edema of the feet and around the ankles. No rash/skin discoloration present. NEURO: strength/sensation equal and symmetric in bilateral upper and lower extremities. PSYCH: appropriate mood, affect, and judgement. Labs: 12/04/2024 white blood count 23, hemoglobin 9.2, hematocrit 30.5, platelets 818 11/28/2024 White blood count 20.6, hemoglobin 6.4, hematocrit 21.3, platelets 928 Sodium 135, potassium 3.9, BUN 14, creatinine 0.56, GFR above 60, glucose 108, calcium 8.5, phosphorus 4.3, magnesium 1.8 Total bilirubin 0.8, AST 22, ALT 20, alk phos 516, total protein 6.4, albumin 0.8 normal 3.4-5 Last Images: EKG today 12/05/2024 showed sinus tachycardia 136 bpm, otherwise normal EKG EKG 11/27/2024 showed sinus tachycardia, heart rate 108 bpm, otherwise normal EKG. Echo 11/26/2024 Global left ventricular systolic function is moderately reduced, visually estimated ejection fraction 30 to 35% Borderline left ventricular hypertrophy Normal right ventricular size and systolic function Grade 2 diastolic dysfunction Left atrium is moderately dilated Moderate mitral regurgitation Assessment and Plan: Chronic systolic congestive heart failure, diagnosed recently On examination despite having mild edema she appears to be compensated she could be hypovolemic because she is tacky cardiac but not significantly short of breath. With the swelling of her feet couldbe related to severe hypoalbuminemia Newly diagnosed cardiomyopathy, etiology is not clear. The patient in the past declined workup but now is she is she is agreeable minimal invasive procedures She is currently on Toprol-XL and losartan. She stopped Farxiga due to intolerance Sinus tachycardia. As mentioned above the patient does not appears to be in decompensated heart failure. She could be intravascular hypovolemic secondary to poor oral intake and malnutrition Moderate mitral regurgitation noted on recent echo 11/26/2024 History of hypertension, she is on Toprol-XL and losartan. Blood pressure appears to be well-controlled Hyperlipidemia, on atorvastatin History of diabetes mellitus, currently not on any medication after she lost a lot of weight Nicotine dependence/tobacco abuse Myeloproliferative disease/myelo fibrosis. She received chemotherapy according to her however she is changing her oncologist to [facility] COPD Malnutrition with significant weight loss about 100 pounds since she was diagnosed with cancer. Heralbumin is significantly low 0.8 Remote alcoholic and drug user Plan: I had lengthy discussion with patient regarding the possible etiologies of cardiomyopathy and the approach to diagnosis and management. Of note it was very difficult to hold a conversation with the patient. She kept cutting me not wanting to hear anything or discuss any thing. Patient initially was resistant to any work up according to her because of transportation and that she is not up to have any invasive workup. After lengthy discussion she is agreeable to go to [facility] to have coronary CT angiogram to rule out coronary artery disease. It was ordered. At this time we will continue Toprol-XL and losartan. Patient reports that she is compliant with those medications Ideally I would like her to have a right heart cath to evaluate her fluid status due to persistent sinus tachycardia but the patient declines for now. She insists that she first wants to see her new oncologist to figure out the plan for the future Patient was highly advised regarding the importance of smoking cessation to improve her long-term prognosis from the cardiac point of view ,different options were discussed and she reports that she is cutting down and she is down to 3 to 5 cigarettes a day She was advised regarding following low-salt diet and fluid intake restriction which she is unintentionally following because of her poor appetite Follow-up with me in about 2-[address] angiogram and I hope at that time she already saw her new oncologist. In that case I will contact him regarding her future prognosis depending on which will decide about further discussion about cardiac diagnosis and management Ashlee Hoskins MD,[facility] [1] Family History Problem Relation Name Age of Onset Hypertension Mother Diabetic kidney disease Mother Other (stoke) Mother Cancer Father [2] Current Outpatient Medications: albuterol 2.5 mg /3 mL (0.083 %) nebulizer solution, Inhale 2.5 mg every 6 (six) hours if needed., Disp: , Rfl: albuterol 90 mcg/actuation inhaler, Inhale every 6 (six) hours if needed., Disp: , Rfl: baclofen (Lioresal) 20 mg tablet, Take 20 mg by mouth if needed., Disp: , Rfl: cetirizine (ZyrTEC) 10 mg tablet, Take 10 mg by mouth in the morning., Disp: , Rfl: gabapentin (Neurontin) 600 mg tablet, Take 1 tablet by mouth every 6 (six) hours during the day., Disp: , Rfl: losartan (Cozaar) 50 mg tablet, Take 50 mg by mouth in the morning., Disp: , Rfl: metoprolol succinate XL (Toprol-XL) 100 mg 24 hr tablet, Take 1 tablet (100 mg) by mouth once dailyas directed. Do not crush or chew., Disp: 90 tablet, Rfl: 1 oxyCODONE (Roxicodone) 5 mg immediate release tablet, Take 5 mg by mouth every 4 (four) hours if needed., Disp: , Rfl: potassium chloride CR (K-Tab) 20 mEq ER tablet, Take 20 mEq by mouth two times daily., Disp: , Rfl: promethazine (Phenergan) 25 mg tablet, Take 25 mg by mouth if needed., Disp: , Rfl: Vitamin B-12 1,000 mcg tablet, Take 1,000 mcg by mouth in the morning., Disp: , Rfl: atorvastatin (Lipitor) 20 mg tablet, Take 20 mg by mouth at bedtime. (Patient not taking: Reported on 12/05/2024), Disp: , Rfl: azelastine (Astelin) 137 mcg (0.1 %) nasal spray, Administer 2 sprays into each nostril two times daily. (Patient not taking: Reported on 12/05/2024), Disp: , Rfl: Farxiga 10 mg, Take 1 tablet by mouth in the morning. (Patient not taking: Reported on 12/05/2024), Disp: , Rfl: hydroxyurea (Hydrea) 500 mg capsule, Take 500 mg by mouth in the morning (Patient not taking: Reported on 12/05/2024), Disp: , Rfl: documented in this encounter Plan of Treatment Upcoming Encounters Date Type Department Care Team (Late st Contact Info) Description 01/21/2025 8:00 AM EDT Appointment [facility] CT Imaging [address] [place] [id number] Scheduled Orders Name Type Priority Associated Diagnoses Orde r Schedule CTA Heart Coronary W IV Contrast W or WO FFRct Imaging Routine Cardiomyopathy, unspecified type (CMS/HCC) Expected: 12/05/2024 (Approximate), Expires: 12/05/2025 documented as of this encounter Procedures Procedure Name Priority Date/Time Associated Diagnosis Comments ECG 12-LEAD Routine 12/05/2024 6:13 PM EDT Cardiomyopathy, unspecified type (CMS/HCC) documented in this encounter Results * ECG 12 lead (12/05/2024 6:13 PM EDT) Narrative Ashlee Hoskins MD - 12/05/2024 6:13 PM EDT sinus tachycardia 136 bpm, otherwise normal EKG Ashlee Hoskins MD ECG ORDERABLES Final Result documented in this encounter Visit Diagnoses Diagnosis Chronic systolic heart failure (CMS/HCC)- Primary Chronic systolic heart failure Cardiomyopathy, unspecified type (CMS/HCC) Sinus tachycardia Other specified cardiac dysrhythmias Nonrheumatic mitral valve regurgitation Essential hypertension, benign Type 2 diabetes mellitus without complication, without long-term current use of insulin (CMS/HCC) Mixed hyperlipidemia 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
[2024-12-16 13:33] VITALS: BP 139/89; PULSE 124; O2SAT 99; BMI 14.5
--- NOTE | 2024-12-16 13:45 | ECG_ITS ---
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
--- NOTE | 2024-12-16 13:45 | PC.NURSE ---
Katie advised her to come to er.
--- NOTE | 2024-12-16 13:48 | PC.NURSE ---
pt returns to Room #6 via EMS and [facility], pt is ambulatory and tearful. Report she had a seizure, no injury to body or tongue, no loss of bowel or bladder control.
[2024-12-16 14:06] VITALS: PULSE 119
--- OUTSIDE RECORDS SUMMARY | 2024-12-16 14:17 | XMS_ITS | Encounter Summary ---
Demographics Address [address] [facility] [address] [place] [address] Home Phone Email Address Preferred Language en Marital Status Caodaism Affiliation Unknown Race White Ethnic Group Not or Lati no Author Organization [facility] Address [address] [place] [id number] Care Team Providers Care Scrap Drop Crane Operator Name Role Phone Nakul Swenson MD Primary Care Provider [phone] Reason for Visit * Reason Onset Date Comments Med Refill 12/02/2024 Encounter Details Date Type Department Care Team (Late st Contact Info) Description 12/02/2024 Refill [facility] at [facility] [address] [place] [id number] Lina Mi MA Tachycardia (Primary Dx) Social History Tobacco Use Types Packs/Day Years Used Date Smoking Tobacco: Never Assessed Comments Unknown Sex and Gender Information Value Date Recorded Sex Assigned at Female 12/04/2024 2:11 PM EDT Legal Sex Female 10:47 PM EDT Gender Identity Female 12/04/2024 2:11 PM EDT Sexual Orientation Heterosexual or Straight 11/24 2:11 PM EDT documented as of this encounter Plan of Treatment Upcoming Encounters Date Type Department Care Team (Late st Contact Info) Description 01/21/2025 8:00 AM EDT Appointment [facility] CT Imaging [address] [place] [id number] documented as of this encounter Visit Diagnoses Diagnosis Tachycardia- Primary Unspecified tachycardia documented in this encounter Care Teams Scrap Drop Crane Operator Relationship Specialty Start Date End Date Nakul Swenson MD [address] [facility] [address] [address] PCP - General Family Medicine 12/01/24 documented as of this encounter
--- OUTSIDE RECORDS SUMMARY | 2024-12-16 14:17 | XMS_ITS | Encounter Summary ---
Demographics Address [address] [facility] [address] [place] [address] Mobile Phone Home Phone Work Phone Email Address Preferred Language en Marital Status Synagogue Affiliation Unknown Race White Ethnic Group Not or Lati no Author Organization [facility] Address [address] [place] [address] Care Team Providers Care Air Cargo Agent Name Role Phone Domi Altamirano NP Unavailable [phone] Hiren Horton MD Primary Care Provider Domi Altamirano [employer] Unavailable [phone] Domi Altamirano NP Unavailable [phone] Unallocated, [facility] Provider Primary Care Provi taylor Encounter Details Date Type Department Care Team (Late st Contact Info) Description 09/18/2024 Abstract [facility] [address] [place] [address] Domi Altamirano, [employer] [address] [place] [id number] Social History Tobacco Use Types Packs/Day Years [...] declined 10/08/2023 How often do you attend hinduism or roman catholic serv ices? Never 10/08/2023 Do you belong to any clubs o r organizations such as hinduism groups, unions, fraternal or athletic groups, or [...] medical care, and heating? Very hard 10/08/2023 [facility] Occupat ional Health - Occupational Stress [...] any time in the past 12 m [facility], were you homeless or living [...] on filedocumented in this encounter Care Teams Air Cargo Agent Relationship Specialty Start Date End Date Hiren Horton MD PCP - General Family Medicine 07/26/23 10/13/24 Domi Altamirano NP [address] [place] [address] PCP - [place] [employer] 08/24/24 Unallocated, [facility] Provider, [address] [place] [address] PCP - General Family Medicine 10/14/24 Domi Altamirano NP Nurse Practitioner Family Medicine 03/26/22 10/13/24 Domi Altamirano NP Nurse Practitioner Family Medicine 07/26/23 10/13/24 documented as of this encounter
--- OUTSIDE RECORDS SUMMARY | 2024-12-16 14:17 | XMS_ITS | Patient Health Record ---
Author Organization [facility] in [place] Address [address] [place] [address] Care Team Providers Care Master Barber Name Role Phone MarcelMansoor cuellar Primary Care Provider Katerine Chance Unavailable [phone] Allergies Allergen (clinical drug ingredient) Drug/Non Drug Allergy documented on EMR Reaction Allergy Type Onset Date Status prednisone predniSONE Insides Feel Like On Fire Drug Allergy Active Results Component Value Reference Range Notes CBC AUTO DIFF Reviewed date:12/04/2024 07:07:25 PM Interpretation: Performing Lab: Notes/Report: [facility] , White Blood Count 23.1 4.0-11.0 10 3/uL Red Blood Count 3.12 4.20-5.40 10 6/uL Hemoglobin 9.2 12.0-16.0 g/dL Hematocrit 30.5 36.0-48.0 % Mean Corpuscular Volume 97.8 81.0-99.0 fL Mean Corpuscular Hemoglobin 29.5 26.7-34.0 pg Mean Corpuscular HGB Conc 30.2 29.9-35.2 g/dL Red Cell Distribution Width 18.7 11.0-15.0 % Platelet Count 812 150-450 10 3/uL Mean Platelet Volume 10.2 9.5-13.5 fL Performing Lab: see note ML - [facility] LB PROF 14(COMP METB) Reviewed date:12/07/2024 12:58:32 PM Interpretation: Performing Lab: Notes/Report: [facility] , Sodium 133 136-145 mmol/L Potassium 3.1 3.5-5.1 mmol/L Chloride 96 98-107 mmol/L Carbon Dioxide 26.3 21.0-32.0 mmol/L Anion Gap 13.8 Glucose 159 74-106 mg/dL Blood Urea Nitrogen 9.0 7.0-18.0 mg/dL Creatinine 0.44 0.55-1.02 mg/dL Estimated GFR ( Fang >60 >=60 mL/min/1.73m 2 Estimated GFR (Non- Lizabeth >60 >=60 mL/min/1.73m 2 BUN Creatinine Ratio 20.5 Calcium 8.6 8.5-10.1 mg/dL Bilirubin Total 0.7 0.2-1.0 mg/dL Aspartate Amino Transferase 12 15-37 U/L Alanine Aminotransferase 11 14-59 U/L Alkaline Phosphatase 416 46-116 U/L Total Protein 6.7 6.4-8.2 g/dL Albumin Level 1.0 3.4-5.0 g/dL Globulin 5.7 Albumin Globulin Ratio 0.2 Performing Lab: see note ML - [facility] LB CBC AUTO DIFF Reviewed date:11/18/2024 08:03:28 PM Interpretation: Performing Lab: Notes/Report: [facility] , White Blood Count 17.0 4.0-11.0 10 [...] 0.00-0.03 10 3/uL Performing Lab: see note [facility] LB PROF 14(COMP METB) Reviewed date:09/18/2024 07:21:43 PM Interpretation: Performing Lab: Notes/Report: [facility] , Sodium 138 136-145 mmol/L Potassium [...] Ratio 0.3 Performing Lab: see note - [facility] LB Blood Culture 1 Reviewed date:09/23/2024 07:04:33 PM Interpretation: Performing Lab: Notes/Report: [facility] , Blood Culture 1 See Below For Report Blood Culture 1 NG5D NO GROWTH AT 5 DAYS.^NO GROWTH AT 5 DAYS. Performing Lab: see note [facility] LB Blood Culture 2 Reviewed date:09/23/2024 07:04:33 PM Interpretation: Performing Lab: Notes/Report: [facility] , Blood Culture 2 See Below For Report Blood Culture 2 NG5D NO GROWTH AT 5 DAYS.^NO GROWTH AT 5 DAYS. Performing Lab: see note [facility] LB White Blood Cells Reviewed date:09/22/2024 09:17:56 PM Interpretation: Performing Lab: Notes/Report: [facility] , White Blood Cells See Below For Report White Blood Cells White Blood Cells None seen White Blood Cells Performing Lab: see note - [facility] LB Epithelial Cells Reviewed date:09/22/2024 09:17:56 PM Interpretation: Performing Lab: Notes/Report: [facility] , Epithelial Cells See Below For Report Epithelial Cells Few Performing Lab: see note LC - [facility] LB Result 1 Reviewed date:09/22/2024 09:17:56 PM Interpretation: Performing Lab: Notes/Report: [facility] , Result 1 See Below For Report Result 1 Many gram positive cocci. Performing Lab: see note - [facility] LB Result 2 Reviewed date:09/22/2024 [...] 4 See Below For Report Result 4 PROGRAM THERAPIST Performing Lab: see note - [facility] LB Gram Stain Evaluation Reviewed date:09/22/2024 09:17:56 PM Interpretation: Performing Lab: Notes/Report: [facility] , Gram Stain Evaluation See Below For Report Gram Stain Evaluation This specimen is of good quality and is acceptable for routine Gram Stain Evaluation bacterial culture. Gram Stain Evaluation This specimen is of good quality and is acceptable for routine Performing Lab: see note - [facility] LB Lower Respiratory Culture Reviewed date:09/22/2024 09:17:56 PM Interpretation: Performing Lab: Notes/Report: [facility] , Lower Respiratory Culture See Below For Report Lower Respiratory Culture WILL FOLLOW Lower Respiratory Culture Routine respiratory luke Lower Respiratory Culture WILL FOLLOW Lower Respiratory Culture Performed at: CB - [facility] Lower Respiratory Culture WILL FOLLOW Lower Respiratory Culture [address] [place], [place] [id number] Lower Respiratory Culture WILL FOLLOW Lower Respiratory Culture Digital Analyst: Abel Finnegan PhD, Phone: [phone] Lower Respiratory Culture WILL FOLLOW Performing Lab: see note - [facility] LB SEE REPORT - [employer] 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 CBC AUTO DIFF Reviewed date:09/21/2024 01:12:51 PM Interpretation: Performing Lab: Notes/Report: [facility] , White Blood Count 17.4 4.0-11.0 [...] fL Performing Lab: see note ML - [facility] LB PROF 14(COMP METB) Reviewed date:09/21/2024 01:12:51 PM Interpretation: Performing Lab: Notes/Report: [facility] , Sodium 138 136-145 mmol/L Potassium 3.8 [...] Globulin Ratio 0.3 Performing Lab: see note [facility] LB Manual Differential Reviewed date:09/21/2024 01:12:51 PM Interpretation: Performing Lab: Notes/Report: [facility] , Segmented Neutrophils % Manual 72.0 [...] 10 3/uL Basophils Abs Manual 0.00 0.00-0.10 10 3/uL Hypochromasia 1+ Anisocytosis 1+ Performing Lab: see note - [facility] LB B pertussis IgG/M/A Ab Reviewed date:09/23/2024 07:04:33 PM Interpretation: Performing Lab: Notes/Report: [facility] , B pertussis IgG Ab 2.04 0.00-0.94 index Negative <0.95 Equivocal 0.95 - 1.04 Positive >1.04 B pertussis IgM Ab 1.2 0.0-0.9 index Negative <1.0 Borderline 1.0 - 1.1 Positive >1.1 B pertussis IgA Ab 1.1 0.0-0.9 index Negative <1.0 Borderline 1.0 - 1.1 Positive >1.1 Performed at: [address] [id number] Digital Analyst: Opal Gibbs MD, Phone: [phone] Performing Lab: see note - [facility] LB XR chest 2V Reviewed date:09/21/2024 01:12:51 PM Interpretation: Performing Lab: Notes/Report: Source Facility: [place] [address] [address] XRay Report Signed Patient: RYLEE BURTON MR#: [id number] : 1975 Acct:[id number] Age/Sex: 49 / F ADM Date: 09/15/24 Loc: MS 202-[address]: Meenakshi Swenson M.D. Ordering Physician: Meenakshi Swenson M.D. Date of Service: 09/19/24 Procedure(s): XR chest 2V Accession Number(s): [id number] cc: Domi Altamirano PROGRAM THERAPIST; Meenakshi Swenson M.D. The [place] [address] Patient Name: RYLEE BURTON MRN: [id number] date: 1975 Sex: F Assigned Patient Location: [place] Current Patient Location: [place] Accession/Order Number: [id number] Exam Date: 09/19/2024 09:16 Report Date: 09/19/2024 [...] Bach M.D. 09/19/2024 9:17 AM Dictation Location: [place] [address] Electronically authenticated by: [id number] Y Date: 09/19/2024 09:17 Dictated By: Iraida Bach M.D. Signed By: 09/19/24919 DD/ 6 TD/TT: Package Liner: CBC AUTO DIFF Reviewed date:09/21/2024 01:12:51 PM Interpretation: Performing Lab: Notes/Report: [facility] , White Blood Count 21.8 4.0-11.0 [...] fL Performing Lab: see note ML - [facility] LB PROF 14(COMP METB) Reviewed date:09/21/2024 01:12:51 PM Interpretation: Performing Lab: Notes/Report: [facility] , Sodium 141 136-145 mmol/L Potassium 3.9 [...] 0.3 Performing Lab: see note ML - [facility] LB Manual Differential Reviewed date:09/21/2024 01:12:51 PM Interpretation: Performing Lab: Notes/Report: [facility] , Segmented Neutrophils % Manual 81.0 43.0-75.0 [...] 10 3/uL Basophils Abs Manual 0.00 0.00-0.10 10 3/uL Hypochromasia 1+ Anisocytosis 1+ Performing Lab: see note ML - [facility] LB Packed Red Blood Cells Reviewed date:09/21/2024 01:12:51 PM Interpretation: Performing Lab: Notes/Report: Packed Red Blood Cells [id number] OP RC TRANSFUSED 09/20/24 1558 [id number] OP RC TRANSFUSED 09/20/24 1239 Type and Screen Reviewed date:09/21/2024 01:12:51 PM Interpretation: Performing Lab: Notes/Report: [facility] , Blood Type O Positive Antibody Screen NEGATIVE CBC AUTO DIFF Reviewed date:09/21/2024 01:12:51 PM Interpretation: Performing Lab: Notes/Report: [facility] , White Blood Count 24.0 4.0-11.0 10 [...] Performing Lab: see note ML - [facility] LB CBC AUTO DIFF Reviewed date:09/24/2024 07:13:51 PM Interpretation: Performing Lab: Notes/Report: [facility] , White Blood Count 19.9 4.0-11.0 10 [...] 8.6 9.5-13.5 fL Performing Lab: see note - [facility] LB PROF 14(COMP METB) Reviewed date:09/24/2024 07:13:51 PM Interpretation: Performing Lab: Notes/Report: [facility] , Sodium 137 136-145 mmol/L Potassium 4.6 [...] 0.3 Performing Lab: see note ML - [facility] CBC AUTO DIFF Reviewed date:10/08/2024 05:20:20 PM Interpretation: Performing Lab: Notes/Report: [facility] , White Blood Count 25.4 4.0-11.0 10 [...] 9.5-13.5 fL Performing Lab: see note - [facility] LB Erythrocyte Sedimentation Ra te Reviewed date:10/08/2024 05:20:20 PM Interpretation: Performing Lab: Notes/Report: [facility] , Erythrocyte Sedimentation Rate >130 <=20 mm/hr Performing Lab: see note ML - [facility] LB Manual Differential Reviewed date:10/08/2024 05:20:20 PM Interpretation: Performing Lab: Notes/Report: [facility] , Segmented Neutrophils % Manual 70.0 43.0-75.0 [...] 10 3/uL Basophils Abs Manual 0.00 0.00-0.10 10 3/uL Anisocytosis 2+ Performing Lab: see note - [facility] LB Reticulocyte Pct Auto Reviewed date:10/08/2024 05:20:20 PM Interpretation: Performing Lab: Notes/Report: [facility] , Reticulocyte Pct Auto 1.34 0.60-3.10 % Performing Lab: see note ML - [facility] LB CBC AUTO DIFF Reviewed date:10/07/2024 08:47:32 PM Interpretation: Performing Lab: Notes/Report: [facility] , White Blood Count 27.0 4.0-11.0 10 [...] 9.5-13.5 fL Performing Lab: see note - [facility] LB DRUG SCREEN RAPID (URINE) Reviewed date:10/07/2024 08:47:32 PM Interpretation: Performing Lab: Notes/Report: CATH [facility] , Cannabinoid Screen Urine POSITIVE NEGATIVE [...] ng/mL Performing Lab: see note ML - [facility] LB LACTATE or LACTIC ACID Reviewed date:10/07/2024 08:47:32 PM Interpretation: Performing Lab: Notes/Report: [facility] , Lactate/Lactic Acid 0.8 0.4-2.0 mmol/L Performing Lab: see note ML - [facility] LB PROF CHEM 8 (BAS METB) Reviewed date:10/07/2024 08:47:32 PM Interpretation: Performing Lab: Notes/Report: [facility] , Sodium 132 136-145 mmol/L Potassium [...] mg/dL Performing Lab: see note ML - [facility] LB UA RANDOM W or MICROSCOPIC Reviewed date:10/07/2024 08:47:32 PM Interpretation: Performing Lab: Notes/Report: [facility] , Color Urine DK. ORANGE YELLOW Clarity Urine CLEAR CLEAR Specific [place] Urine 1.020 1.005-1.025 pH Urine 6.0 5.0-9.0 [...] Culture Indicated NO Performing Lab: see note [facility] LB Blood Culture 1 Reviewed date:10/13/2024 07:21:11 PM Interpretation: Performing Lab: Notes/Report: RIGHT [facility] , Blood Culture 1 See Below For Report Blood Culture 1 NG5D NO GROWTH AT 5 DAYS.^NO GROWTH AT 5 DAYS. Performing Lab: see note [facility] LB Blood Culture 2 Reviewed date:10/13/2024 07:21:11 PM Interpretation: Performing Lab: Notes/Report: RIGHT [facility] , Blood Culture 2 See Below For Report Blood Culture 2 NG5D NO GROWTH AT 5 DAYS.^NO GROWTH AT 5 DAYS. Performing Lab: see note [facility] LB Manual Differential Reviewed date:10/07/2024 08:47:32 PM Interpretation: Performing Lab: Notes/Report: [facility] , Segmented Neutrophils % Manual 79.0 [...] 10 3/uL Basophils Abs Manual 0.27 0.00-0.10 10 3/uL Performing Lab: see note - [facility] LB Troponin I High Sensitivity Reviewed date:10/07/2024 08:47:32 PM Interpretation: Performing Lab: Notes/Report: [facility] , Troponin I High Sensitivity <4.0 4.0-51.3 pg/mL CUT-OFF POINTS HAVE BEEN ESTABLISHED BASED ON THE FOURTH UNIVERSAL DEFINITION OF MYOCARDIAL INFARCTION. THE UPPER REFERENCE LIMIT (URL) OF TROPONIN, DEFINED THE 99TH PERCENTILE OF cTnI DISTRIBUTION IN A REFERENCE POPULATION, HAS BEEN CONFIRMED THE DECISION THRESHOLD FOR SD DIAGNOSIS. 99TH PERCENTILE = 51.4 PG/ML NOTE: HIGH-SENSITIVITY TROPONIN ASSAY IS NOT INTENDED TO BE USED IN ISOLATION BUT SHOULD BE INTERPRETED IN CONJUNCTION WITH OTHER DIAGNOSTIC AND CLINICAL INFORMATION. Performing Lab: see note - [facility] HCG Qualitative* Reviewed date:10/07/2024 08:47:32 PM Interpretation: Performing Lab: Notes/Report: [facility] , HCG Qualitative NEGATIVE NEGATIVE Performing Lab: see note - [facility] ECG 12 lead Reviewed date:10/11/2024 03:08:40 PM Interpretation: Performing Lab: Notes/Report: Source Facility: [place] [address] Electrocardiograph Report Signed Patient: RYLEE BURTON MR#: [id number] : 1975 Acct:[id number] Age/Sex: 49 / F ADM Date: 10/07/24 Loc: MS 202-[address]: Cynthia Hernandez M.D. Ordering Physician: Genet Nam M.D. Date of Service: 10/07/24 Procedure(s): ECG 12 lead Accession Number(s): [id number] cc: [facility] Test Date: 2024-10-07 Pat Name: RYLEE BURTON Department: Room: - Gender: Female Beam Doffer: : 1975 Requested By: 1030 Order Number: [id number] Young MD: EHAB ELTAHAWY Measurements Intervals [place] Rate: 142 P: 80 SC: 138 QRS: 84 QRSD: 68 T: 75 QT: 288 QTc: 370 Interpretive Statements 1120 Sinus tachycardia 9140 abnormal rhythm ECG Compared to ECG 09/15/2024 17:35:02 No significant changes Electronically Signed On 10-10-2024 9:45:42 EDT by CHIKI LAMB Dictated By: Chiki Lamb M.D. Signed By: 10/10/24 0946 DD/ 175 TD/TT: Package Liner: CT head/brain wo con Reviewed date:10/07/2024 08:47:32 PM Interpretation: Performing Lab: Notes/Report: Source Facility: [place] [address] CT Scan Report Signed Patient: RYLEE BURTON MR#: [id number] : 1975 Acct:[id number] Age/Sex: 49 / F ADM Date: 10/07/24 Loc: ER Attending Dr: Ordering Physician: Genet Nam M.D. Date of Service: 10/07/24 Procedure(s): CT head/brain wo con Accession Number(s): [id number] cc: Meenakshi Swenson M.D. [place] [address] Patient Name: RYLEE BURTON MRN: [id number] date: 1975 Sex: F Assigned Patient Location: ER Current Patient Location: ED.MAIN Accession/Order Number: [id number] Exam Date: 10/07/2024 18:52 Report Date: 10/07/2024 [...] 10/07/2024 6:55 PM Dictation Location: [place] [address] Electronically authenticated by: [id number] Y Date: 10/07/2024 18:55 Dictated By: Seven Wheatley M.D. Signed By: 10/07/241857 DD/ 54 TD/TT: Package Liner: CBC AUTO DIFF Reviewed date:10/08/2024 05:20:19 PM Interpretation: Performing Lab: Notes/Report: [facility] , White Blood Count 22.2 4.0-11.0 10 [...] 3/uL Performing Lab: see note ML - [facility] LB CPK Reviewed date:10/08/2024 05:20:19 PM Interpretation: Performing Lab: Notes/Report: [facility] , Creatine Kinase 10 26-192 U/L Performing Lab: see note - [facility] INFLUENZA A AND B AG Reviewed date:10/08/2024 05:20:19 PM Interpretation: Performing Lab: Notes/Report: [facility] , Influenza Virus A Antigen Negative Negative [...] test. Performing Lab: see note ML - [facility] LB LACTATE or LACTIC ACID Reviewed date:10/08/2024 05:20:19 PM Interpretation: Performing Lab: Notes/Report: [facility] , Lactate/Lactic Acid 0.5 0.4-2.0 mmol/L Performing Lab: see note ML - [facility] LB MAGNESIUM Reviewed date:10/08/2024 05:20:19 PM Interpretation: Performing Lab: Notes/Report: [facility] , Magnesium 2.0 1.8-2.4 mg/dL Performing Lab: see note ML - [facility] LB PHOSPHORUS Reviewed date:10/08/2024 05:20:19 PM Interpretation: Performing Lab: Notes/Report: [facility] , Phosphorus 3.9 2.6-4.7 mg/dL Performing Lab: see note - [facility] LB PROF 14(COMP METB) Reviewed date:10/08/2024 05:20:19 PM Interpretation: Performing Lab: Notes/Report: [facility] , Sodium 140 136-145 mmol/L Potassium 3.5 [...] 0.2 Performing Lab: see note ML - [facility] PTT Reviewed date:10/08/2024 05:20:19 PM Interpretation: Performing Lab: Notes/Report: [facility] , Partial Thromboplastin Time 33.7 22.3-36.2 sec Performing Lab: see note ML - [facility] Prothrombin Time INR Reviewed date:10/08/2024 05:20:19 PM Interpretation: Performing Lab: Notes/Report: [facility] , Prothrombin Time 13.5 9.0-11.6 sec INR 1.31 DESIRED INR: 2.0-3.0 CONDITIONS NOT LISTED BELOW 2.5-3.5 FOR PROSTHETIC HEART VALVE REPLACEMENT 2.5-3.5 RECURRENT THROMBOSIS Performing Lab: see note ML - [facility] HIV Ab/p24 Ag with Reflex Reviewed date:10/09/2024 05:21:52 PM Interpretation: Performing Lab: Notes/Report: [facility] , HIV Ab/p24 Ag Screen Non Reactive Non Reactive HIV-1/HIV-2 antibodies and HIV-1 p24 antigen were NOT detected. There is no laboratory evidence of HIV infection. HIV Negative Performed at: [address] [id number] Digital Analyst: Abel Finnegan PhD, Phone: [phone] Performing Lab: see note [facility] Acute Hepatitis Reviewed date:10/09/2024 05:21:52 PM Interpretation: [...] exists to indicate HCV infection. Performed at: [address] [id number] Digital Analyst: Abel Finnegan PhD, Phone: [phone] Performing Lab: see note [facility] SARS-CoV-2 Ag* Reviewed date:10/08/2024 05:20:20 PM Interpretation: Performing Lab: Notes/Report: [facility] , SARS-CoV-2 Ag NEGATIVE NEGATIVE This test [...] sooner. Performing Lab: see note ML - [facility] CT abdomen pelvis w con Reviewed date:10/08/2024 05:20:20 PM Interpretation: Performing Lab: Notes/Report: Source Facility: [facility] [place] [address] [address] [address] Scan Report Signed Patient: RYLEE BURTON MR#: [id number] : 1975 Acct:[id number] Age/Sex: 49 / F ADM Date: 10/07/24 Loc: MS 202-[address]: Cynthia Hernandez M.D. Ordering Physician: Cynthia Hernandez M.D. Date of Service: 10/08/24 Procedure(s): CT abdomen pelvis w con Accession Number(s): [id number] cc: Meenakshi Swenson M.D. [address] [address] Patient Name: RYLEE BURTON MRN: [id number] date: 1975 Sex: F Assigned Patient Location: [place] Current Patient Location: [place] Accession/Order Number: [id number] Exam Date: 10/08/2024 08:22 Report Date: 10/08/2024 [...] Bach M.D. 10/08/2024 8:38 AM Dictation Location: [place] [address] Electronically authenticated by: [id number] Y Date: 10/08/2024 08:38 Dictated By: Iraida Bach M.D. Signed By: 10/08/24 0841 DD/ 0838 TD/TT: Package Liner: CBC AUTO DIFF Reviewed date:10/27/2024 01:04:56 PM Interpretation: Performing Lab: Notes/Report: [facility] , White Blood Count 17.3 4.0-11.0 10 [...] Performing Lab: see note ML - [facility] LB PROF 14(COMP METB) Reviewed date:10/27/2024 01:04:56 PM Interpretation: Performing Lab: Notes/Report: [facility] , Sodium 137 136-145 mmol/L Potassium 3.4 [...] 0.2 Performing Lab: see note ML - [facility] LB CBC AUTO DIFF Reviewed date:11/02/2024 07:54:11 PM Interpretation: Performing Lab: Notes/Report: [facility] , White Blood Count 15.5 4.0-11.0 [...] 10 3/uL Performing Lab: see note - [facility] LB PROF 14(COMP METB) Reviewed date:11/02/2024 07:54:11 PM Interpretation: Performing Lab: Notes/Report: [facility] , Sodium 137 136-145 mmol/L Potassium 4.3 [...] Ratio 0.2 Performing Lab: see note - [facility] LB CBC AUTO DIFF Reviewed date:11/05/2024 12:48:21 PM Interpretation: Performing Lab: Notes/Report: [facility] , White Blood Count 11.9 4.0-11.0 10 [...] 3/uL Performing Lab: see note ML - [facility] LB Packed Red Blood Cells Reviewed date:11/05/2024 06:22:35 PM Interpretation: Performing Lab: Notes/Report: Packed Red Blood Cells [id number] OP RC TRANSFUSED 11/05/24 1216 [id number] OP RC TRANSFUSED 11/05/24 0920 Type and Screen Reviewed date:11/05/2024 06:22:35 PM Interpretation: Performing Lab: Notes/Report: [facility] , Blood Type O Positive Antibody Screen NEGATIVE CBC AUTO DIFF Reviewed date:11/13/2024 04:23:43 PM Interpretation: Performing Lab: Notes/Report: [facility] , White Blood Count 16.1 4.0-11.0 10 [...] Performing Lab: see note ML - [facility] LB PROF 14(COMP METB) Reviewed date:11/13/2024 04:23:43 PM Interpretation: Performing Lab: Notes/Report: [facility] , Sodium 135 136-145 mmol/L Potassium 3.7 [...] 0.2 Performing Lab: see note ML - [facility] LB CBC AUTO DIFF Reviewed date:11/20/2024 05:06:15 PM Interpretation: Performing Lab: Notes/Report: [facility] , White Blood Count 22.7 4.0-11.0 10 3/uL Red Blood Count 2.17 4.20-5.40 10 6/uL MICRO 1 + Hemoglobin 6.0 12.0-16.0 g/dL RESULTS JIN D [...] fL Performing Lab: see note ML - [facility] LB PROF 14(COMP METB) Reviewed date:11/20/2024 05:06:15 PM Interpretation: Performing Lab: Notes/Report: [facility] , Sodium 133 136-145 mmol/L Potassium 3.9 [...] 0.2 Performing Lab: see note ML - [facility] LB Manual Differential Reviewed date:11/20/2024 05:06:15 PM Interpretation: Performing Lab: Notes/Report: [facility] , Segmented Neutrophils % Manual 79.0 [...] 10 3/uL Basophils Abs Manual 0.00 0.00-0.10 10 3/uL Performing Lab: see note ML - [facility] LB Packed Red Blood Cells Reviewed date:11/24/2024 02:07:02 PM Interpretation: Performing Lab: Notes/Report: Packed Red Blood Cells [id number] ON RC TRANSFUSED 11/21/24 1228 [id number] ON RC TRANSFUSED 11/21/24 1037 Type and Screen Reviewed date:11/24/2024 02:07:02 PM Interpretation: Performing Lab: Notes/Report: [facility] , Blood Type O Positive Antibody Screen NEGATIVE BNP Reviewed date:11/27/2024 12:36:13 PM Interpretation: Performing Lab: Notes/Report: [facility] , NT Pro B Type Natriuretic Pept 7757.0 <=900.0 pg/mL RESULTS CALLED TO JOSE ANGEL LAZO RN @BY Lora Davila at 2338 Performing Lab: see note ML - [facility] LB CBC AUTO DIFF Reviewed date:11/26/2024 01:00:03 PM Interpretation: Performing Lab: Notes/Report: [facility] , White Blood Count 25.4 4.0-11.0 10 [...] 9.9 9.5-13.5 fL Performing Lab: see note ML - [facility] LB LACTATE or LACTIC ACID Reviewed date:11/26/2024 01:00:03 PM Interpretation: Performing Lab: Notes/Report: [facility] , Lactate/Lactic Acid 0.6 0.4-2.0 mmol/L Performing Lab: see note ML - [facility] LB LDH Reviewed date:11/26/2024 01:00:03 PM Interpretation: Performing Lab: Notes/Report: [facility] , Lactate Dehydrogenase 176 81-234 U/L Performing Lab: see note ML - [facility] LB LIPASE Reviewed date:11/26/2024 01:00:03 PM Interpretation: Performing Lab: Notes/Report: [facility] , Lipase <10.0 16.0-77.0 U/L Performing Lab: see note ML - [facility] LB MAGNESIUM Reviewed date:11/26/2024 01:00:03 PM Interpretation: Performing Lab: Notes/Report: [facility] , Magnesium 1.6 1.8-2.4 mg/dL Performing Lab: see note ML - [facility] LB PROF 14(COMP METB) Reviewed date:11/26/2024 01:00:03 PM Interpretation: Performing Lab: Notes/Report: [facility] , Sodium 135 136-145 mmol/L Potassium 3.5 [...] 0.2 Performing Lab: see note ML - [facility] LB UA RANDOM W or MICROSCOPIC Reviewed date:11/26/2024 01:00:03 PM Interpretation: Performing Lab: Notes/Report: [facility] , Color Urine YELLOW YELLOW Clarity Urine CLEAR CLEAR Specific Firth Urine <=1.005 1.005-1.025 pH Urine 6.0 5.0-9.0 [...] SEEN NONE SEEN #/LPF Urine Culture Indicated YES-[facility] [place] Performing Lab: see note ML - [facility] LB URIC ACID SERUM Reviewed date:11/26/2024 01:00:04 PM Interpretation: Performing Lab: Notes/Report: [facility] , Uric Acid 1.9 2.6-6.0 mg/dL Performing Lab: see note [facility] LB Blood Culture 1 Reviewed date:12/02/2024 07:45:52 PM Interpretation: Performing Lab: Notes/Report: PEDS BOTTLE [facility] , Blood Culture 1 See Below For Report Blood Culture 1 NG5D NO GROWTH AT 5 DAYS.^NO GROWTH AT 5 DAYS. Performing Lab: see note [facility] LB Blood Culture 2 Reviewed date:12/02/2024 07:45:52 PM Interpretation: Performing Lab: Notes/Report: PEDS BOTTLE [facility] , Blood Culture 2 See Below For Report Blood Culture 2 NG5D NO GROWTH AT 5 DAYS.^NO GROWTH AT 5 DAYS. Performing Lab: see note [facility] LB Manual Differential Reviewed date:11/26/2024 01:00:04 PM Interpretation: Performing Lab: Notes/Report: [facility] , Segmented Neutrophils % Manual 84.0 43.0-75.0 [...] 10 3/uL Basophils Abs Manual 0.00 0.00-0.10 10 3/uL Anisocytosis 1+ Performing Lab: see note [facility] LB Packed Red Blood Cells Reviewed date:12/01/2024 07:28:22 PM Interpretation: Performing Lab: Notes/Report: Packed Red Blood Cells [id number] OP RC TRANSFUSED 11/28/24 1010 Type and Screen Reviewed date:12/01/2024 07:28:22 PM Interpretation: Performing Lab: Notes/Report: [facility] , Blood Type O Positive Antibody Screen NEGATIVE Urine Culture - [facility] Reviewed date:11/28/2024 01:05:36 PM Interpretation: Performing Lab: Notes/Report: [facility] , Urine Culture - [facility] See Below For Report Urine Culture - [facility] Testing performed at [facility] O:KLEPNE Isolated Urine Culture - [facility] Bryant Count Organism: 1.1 Antibiotic Interpretation CYNTHIA Status Urine Culture - [facility] [address] [place] [address] Urine Culture - [facility] Testing performed at [facility] O:KLEPNE Isolated Urine Culture - [facility] [place] Count Organism: 1.1 Antibiotic Interpretation CYNTHIA Status Urine Culture - [facility] See Below For Report Urine Culture - [facility] Testing performed at [facility] O:KLEPNE Isolated Urine Culture - [facility] Bryant Count Organism: 1.1 Antibiotic Interpretation CYNTHIA Status Urine Culture - [facility] See Below For Report Urine Culture - [facility] Testing performed at [facility] O:KLEPNE Isolated Urine Culture - [facility] Bryant Count Organism: 1.1 Antibiotic Interpretation CYNTHIA Status Urine Culture - [facility] >100,000 Urine Culture - [facility] Testing performed at [facility] O:KLEPNE Isolated Urine Culture - [facility] Bryant Count Organism: 1.1 Antibiotic Interpretation CYNTHIA Status Urine Culture - [facility] See Below For Report Urine Culture - [facility] Testing performed at [facility] O:KLEPNE Isolated Urine Culture - [facility] Bryant Count Organism: 1.1 Antibiotic Interpretation CYNTHIA Status Urine Culture - [facility] Amikacin S F Urine Culture - [facility] Testing performed at [facility] O:KLEPNE Isolated Urine Culture - [facility] Bryant Count Organism: 1.1 Antibiotic Interpretation CYNTHIA Status Urine Culture - [facility] Amoxicillin/Clavula dinesh e S F Urine Culture - [facility] Testing performed at [facility] O:KLEPNE Isolated Urine Culture - [facility] Bryant Count Organism: 1.1 Antibiotic Interpretation CYNTHIA Status Urine Culture - [facility] Aztreonam S F Urine Culture - [facility] Testing performed at [facility] O:KLEPNE Isolated Urine Culture - [facility] Bryant Count Organism: 1.1 Antibiotic Interpretation CYNTHIA Status Urine Culture - [facility] Ceftazidime S F Urine Culture - [facility] Testing performed at [facility] O:KLEPNE Isolated Urine Culture - [facility] Bryant Count Organism: 1.1 Antibiotic Interpretation CYNTHIA Status Urine Culture - [facility] Ceftazidime/Avibact am S F Urine Culture - [facility] Testing performed at [facility] O:KLEPNE Isolated Urine Culture - [facility] Bryant Count Organism: 1.1 Antibiotic Interpretation CYNTHIA Status Urine Culture - [facility] Ceftolozane/Tazobac smalls S F Urine Culture - [facility] Testing performed at [facility] O:KLEPNE Isolated Urine Culture - [facility] Bryant Count Organism: 1.1 Antibiotic Interpretation CYNTHIA Status Urine Culture - [facility] Ciprofloxacin S F Urine Culture - [facility] Testing performed at [facility] O:KLEPNE Isolated Urine Culture - [facility] Bryant Count Organism: 1.1 Antibiotic Interpretation CYNTHIA Status Urine Culture - [facility] Ertapenem S F Urine Culture - [facility] Testing performed at [facility] O:KLEPNE Isolated Urine Culture - [facility] Bryant Count Organism: 1.1 Antibiotic Interpretation CYNTHIA Status Urine Culture - [facility] Gentamicin S F Urine Culture - [facility] Testing performed at [facility] O:KLEPNE Isolated Urine Culture - [facility] Bryant Count Organism: 1.1 Antibiotic Interpretation CYNTHIA Status Urine Culture - [facility] Levofloxacin S F Urine Culture - [facility] Testing performed at [facility] O:KLEPNE Isolated Urine Culture - [facility] Bryant Count Organism: 1.1 Antibiotic Interpretation CYNTHIA Status Urine Culture - [facility] Meropenem S F Urine Culture - [facility] Testing performed at [facility] O:KLEPNE Isolated Urine Culture - [facility] Bryant Count Organism: 1.1 Antibiotic Interpretation CYNTHIA Status Urine Culture - [facility] Meropenem/Vaborbact am S F Urine Culture - [facility] Testing performed at [facility] O:KLEPNE Isolated Urine Culture - [facility] Bryant Count Organism: 1.1 Antibiotic Interpretation CYNTHIA Status Urine Culture - [facility] Nitrofurantoin I F Urine Culture - [facility] Testing performed at [facility] O:KLEPNE Isolated Urine Culture - [facility] Bryant Count Organism: 1.1 Antibiotic Interpretation CYNTHIA Status Urine Culture - [facility] Tetracycline S F Urine Culture - [facility] Testing performed at [facility] O:KLEPNE Isolated Urine Culture - [facility] Bryant Count Organism: 1.1 Antibiotic Interpretation CYNTHIA Status Urine Culture - [facility] Tigecycline S F Urine Culture - [facility] Testing performed at [facility] O:[place]LEP[place] Isolated Urine Culture - [facility] Bryant Count Organism: 1.1 Antibiotic Interpretation CYNTHIA Status Urine Culture - [facility] Tobramycin S F Urine Culture - [facility] Testing performed at [facility] O:KLEP[place] Isolated Urine Culture - [facility] Bryant Count Organism: 1.1 Antibiotic Interpretation CYNTHIA Status Urine Culture - [facility] Ampicillin/Sulbacta m S F Urine Culture - [facility] Testing performed at [facility] O:KLEPNE Isolated Urine Culture - [facility] Bryant Count Organism: 1.1 Antibiotic Interpretation CYNTHIA Status Urine Culture - [facility] Cefazolin S F Urine Culture - [facility] Testing performed at [facility] O:KLEPNE Isolated Urine Culture - [facility] Bryant Count Organism: 1.1 Antibiotic Interpretation CYNTHIA Status Urine Culture - [facility] Cefepime S F Urine Culture - [facility] Testing performed at [facility] O:[place]LEP[place] Isolated Urine Culture - [facility] Bryant Count Organism: 1.1 Antibiotic Interpretation CYNTHIA Status Urine Culture - [facility] Ceftriaxone S F Urine Culture - [facility] Testing performed at [facility] O:[place]LE[place] Isolated Urine Culture - [facility] Bryant Count Organism: 1.1 Antibiotic Interpretation CYNTHIA Status Urine Culture - [facility] Cefuroxime S F Urine Culture - [facility] Testing performed at [facility] O:[place]LEP[place] Isolated Urine Culture - [facility] Bryant Count Organism: 1.1 Antibiotic Interpretation CYNTHIA Status Urine Culture - [facility] Piperacillin/Tazoba cta m S F Urine Culture - [facility] Testing performed at [facility] O:[place]LE[place] Isolated Urine Culture - [facility] Bryant Count Organism: 1.1 Antibiotic Interpretation CYNTHIA Status Urine Culture - [facility] Trimethoprim/Sulfa S F Urine Culture - [facility] Testing performed at [facility] O:KLEPNE Isolated Urine Culture - [facility] Bryant Count Organism: 1.1 Antibiotic Interpretation CYNTHIA Status Performing Lab: see note ML - [facility] LB SEE REPORT - 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 Ordering Physician: Cynthia Hernandez M.D. Date of Service: 11/26/24 Procedure(s): XR chest 1V Accession Number(s): [id number] cc: Meenakshi Swenson M.D.; Cynthia Hernandez M.D. [place] [address] Patient Name: RYLEE BURTON MRN: [id number] date: 1975 Sex: F Assigned Patient Location: [place] Current Patient Location: [place] Accession/Order Number: [id number] Exam Date: 11/26/2024 22:28 Report Date: 11/26/2024 [...] Matthews M.D. 11/26/2024 10:54 PM Dictation Location: [place] [address] Electronically authenticated by: [id number] Y Date: 11/26/2024 22:54 Dictated By: Abran Matthews D.O. Signed By: 11/26/242256 DD/ 53 TD/TT: Package Liner: CBC AUTO DIFF Reviewed date:11/27/2024 12:36:13 PM Interpretation: Performing Lab: Notes/Report: [facility] , White Blood Count 20.2 4.0-11.0 10 [...] fL Performing Lab: see note ML - [facility] LB MAGNESIUM Reviewed date:11/27/2024 12:36:13 PM Interpretation: Performing Lab: Notes/Report: [facility] , Magnesium 1.7 1.8-2.4 mg/dL Performing Lab: see note - [facility] LB PHOSPHORUS Reviewed date:11/27/2024 12:36:13 PM Interpretation: Performing Lab: Notes/Report: Comment Add to already drawn blood sample this AM [facility] , Phosphorus 6.4 2.6-4.7 mg/dL RESULTS CALLED TO JOSE ANGEL LAZO RN Performing Lab: see note - [facility] LB PROF 14(COMP METB) Reviewed date:11/27/2024 12:36:13 PM Interpretation: Performing Lab: Notes/Report: [facility] , Sodium 142 136-145 mmol/L Potassium 2.8 [...] Globulin Ratio 0.1 Performing Lab: see note [facility] VITAMIN D 25 [place] Reviewed date:11/27/2024 12:36:13 PM Interpretation: Performing Lab: Notes/Report: [facility] , Vitamin D 48.0 <20 ng/mL Vit D deficient 20-<30 ng/mL Vit D insufficient 30-100 ng/mL Vit D sufficient >100 ng/mL Potential Toxicity Performing Lab: see note [facility] LB Manual Differential Reviewed date:11/27/2024 12:36:13 PM Interpretation: Performing Lab: Notes/Report: [facility] , Segmented Neutrophils % Manual 80.0 43.0-75.0 [...] 10 3/uL Basophils Abs Manual 0.00 0.00-0.10 10 3/uL Platelet Morphology Comment NORMAL RBC Morphology ABNORMAL Hypochromasia 1+ Poikilocytosis 1+ Ovalocytes 1+ Stomatocytes 1+ Performing Lab: see note - [facility] LB PTH, Intact Reviewed date:11/28/2024 01:05:36 PM Interpretation: Performing Lab: Notes/Report: [facility] , PTH, Intact 11 15-65 pg/mL Performed at: [facility] [id number] Digital Analyst: Abel Finnegan PhD, Phone: [phone] Performing Lab: see note LC - [facility] LB PTHrP (PTH-Related Peptide) Reviewed date:12/02/2024 02:16:34 PM Interpretation: Performing Lab: Notes/Report: [facility] , PTHrP (PTH-Related Peptide) <2.0 . pmol/L This test was developed and its performance characteristics determined by [facility]. It has not been cleared or approved [...] discordant, please contact the laboratory. Performed at: [facility] [address] [place] [id number] Digital Analyst: Andres Live MD, Phone: [phone] Performing Lab: see note LC - [facility] LB ECG 12 lead Reviewed date:11/27/2024 04:38:38 PM Interpretation: Performing Lab: Notes/Report: Source Facility: [place] [address] Electrocardiograph Report Signed Patient: RYLEE BURTON MR#: [id number] : 1975 Acct:[id number] Age/Sex: 49 / F ADM Date: 11/26/24 Loc: MS 219- Attending Dr: BENJY GRANADOS D.O. Ordering Physician: Benjy Granados Date of Service: 11/27/24 Procedure(s): ECG 12 lead Accession Number(s): [id number] cc: [facility] Test Date: 2024-11-27 Pat Name: RYLEE BURTON Department: Room: 219 Gender: Female Beam Doffer: : 1975 Requested By: [id number] Order Number: [id number] Young MD: CHIKI LAMB Measurements Intervals [place] Rate: 108 P: 36 SC: 120 QRS: 45 QRSD: 79 T: 66 QT: 335 QTc: 451 Interpretive Statements SINUS TACHYCARDIA POSSIBLE LEFT ATRIAL ENLARGEMENT [-0.1mV P WAVE IN V1/V2] ABNORMAL RHYTHM ECG Compared to ECG 10/07/2024 21:52:24 No significant changes Electronically Signed On 11-27-2024 16:05:27 EDT by CHIKI LAMB Dictated By: Chiki Lamb M.D. Signed By: 11/27/24 1605 DD/ 1149 TD/TT: Package Liner: ANTONIO echo doppler complete Reviewed date:11/27/2024 12:36:13 PM Interpretation: Performing Lab: Notes/Report: Source Facility: [place] [address] Cardiology Report Signed Patient: RYLEE BURTON MR#: [id number] : 1975 Acct:[id number] Age/Sex: 49 / F ADM Date: 11/26/24 Loc: [place] 219-[address]: BENJY GRANADOS D.O. Ordering Physician: Cynthia Hernandez M.D. Date of Service: 11/27/24 Procedure(s): CA echo doppler complete Accession Number(s): [id number] cc: Meenakshi Swenson M.D.; Cynthia Hernandez M.D. Patient Name: RYLEE BURTON MR#: [id number] : 1975 Exam Date: 11/27/2024 Ordering Doctor: [...] Signed By: 11/27/24 1037 DD/ 1036 TD/TT: Package Liner: MAGNESIUM Reviewed date:11/28/2024 01:05:35 PM Interpretation: Performing Lab: Notes/Report: [facility] , Magnesium 1.8 1.8-2.4 mg/dL Performing Lab: see note ML - [facility] LB PHOSPHORUS Reviewed date:11/28/2024 01:05:35 PM Interpretation: Performing Lab: Notes/Report: [facility] , Phosphorus 4.3 2.6-4.7 mg/dL Performing Lab: see note ML - [facility] LB PROF 14(COMP METB) Reviewed date:11/28/2024 01:05:35 PM Interpretation: Performing Lab: Notes/Report: [facility] , Sodium 135 136-145 mmol/L Potassium 3.9 [...] 0.1 Performing Lab: see note ML - [facility] LB CBC no Diff (Hemogram) Reviewed date:11/28/2024 01:05:36 PM Interpretation: Performing Lab: Notes/Report: [facility] , White Blood Count 20.6 4.0-11.0 10 3/uL Red Blood Count 2.24 4.20-5.40 10 6/uL Hemoglobin 6.4 12.0-16.0 g/dL RESULTS CALLED TO Jaimee Montez RN @BY Gurmeet Rocha MLT at 0543 Hematocrit 21.3 36.0-48.0 % RESULTS CALLED TO Jaimee Montez RN @BY FLAKITO StocktonT at 0543 Mean Corpuscular Volume 95.1 81.0-99.0 fL Mean Corpuscular Hemoglobin 28.6 26.7-34.0 pg Mean Corpuscular HGB Conc 30.0 29.9-35.2 g/dL Red Cell Distribution Width 20.5 11.0-15.0 % Platelet Count 928 150-450 10 3/uL Mean Platelet Volume 9.4 9.5-13.5 fL Performing Lab: see note ML - [facility] LB Manual Differential Reviewed date:12/04/2024 07:07:25 PM Interpretation: Performing Lab: Notes/Report: [facility] , Segmented Neutrophils % Manual 77.0 43.0-75.0 Band Neutrophils % 1.0 0-5 % Lymphocytes Percent Manual 15.0 20.5-60.0 % Monocytes Percent Manual 7.0 1.7-12.0 % Eosinophils Percent Manual 0.0 0.9-7.0 % Basophils Percent Manual 0.0 0.2-2.0 % Segmented Neut Absolute Manual 17.78 1.4-6.5 10 3/uL Band Neutrophils Absolute 0.2 0.0-0.3 10 3/uL Lymphocytes Absolute Manual 3.46 1.20-3.80 10 3/uL Monocytes Absolute Manual 1.61 0.30-0.80 10 3/uL Eosinophils Absolute Manual 0.00 0.00-0.70 10 3/uL Basophils Abs Manual 0.00 0.00-0.10 10 3/uL Anisocytosis 1+ Performing Lab: see note ML - [facility] LB BNP Reviewed date:12/07/2024 12:58:32 PM Interpretation: Performing Lab: Notes/Report: [facility] , NT Pro B Type Natriuretic Pept 2763.0 <=900.0 pg/mL RESULTS CALLED TO ROXANNA MANCINI RN Performing Lab: see note ML - [facility] CBC AUTO DIFF Reviewed date:12/07/2024 12:58:32 PM Interpretation: Performing Lab: Notes/Report: [facility] , White Blood Count 26.8 4.0-11.0 10 3/uL Red Blood Count 2.35 4.20-5.40 10 6/uL Hemoglobin 6.8 12.0-16.0 g/dL RESULTS CALLED TO EFRAIN Howe RN @BY Gurmeet Rocha MLT at 0153 Hematocrit 22.3 36.0-48.0 % RESULTS CALLED TO EFRAIN Howe RN @BY FLAKITO StocktonT at 0153 Mean Corpuscular Volume 94.9 81.0-99.0 fL Mean Corpuscular Hemoglobin 28.9 26.7-34.0 pg Mean Corpuscular HGB Conc 30.5 29.9-35.2 g/dL Red Cell Distribution Width 17.7 11.0-15.0 % Platelet Count 1042 150-450 10 3/uL RESULTS CALLED TO EFRAIN Howe RN @BY FLAKITO StocktonT at 0153 Mean Platelet Volume 8.7 9.5-13.5 fL Performing Lab: see note ML - [facility] LB D-DIMER Reviewed date:12/07/2024 12:58:32 PM Interpretation: Performing Lab: Notes/Report: [facility] , D Dimer 1.12 <=0.59 mg/L FEU RESULTS CALLED TO YANNICK ALMENDAREZ RN Increases in D-Dimer concentration observed with thromboembolic [...] Performing Lab: see note ML - [facility] LB LACTATE or LACTIC ACID Reviewed date:12/07/2024 12:58:32 PM Interpretation: Performing Lab: Notes/Report: [facility] , Lactate/Lactic Acid 0.3 0.4-2.0 mmol/L Performing Lab: see note ML - [facility] LB PROF CHEM 8 (BAS METB) Reviewed date:12/07/2024 12:58:32 PM Interpretation: Performing Lab: Notes/Report: [facility] , Sodium 136 136-145 mmol/L Potassium 3.2 3.5-5.1 mmol/L Chloride 99 98-107 mmol/L Carbon Dioxide 25.2 21.0-32.0 mmol/L Anion Gap 15.0 Glucose 108 74-106 mg/dL Blood Urea Nitrogen 6.0 7.0-18.0 mg/dL Creatinine 0.36 0.55-1.02 mg/dL Estimated GFR ( Fang >60 >=60 mL/min/1.73m 2 Estimated GFR (Non- Lizabeth >60 >=60 mL/min/1.73m 2 BUN Creatinine Ratio 16.7 Calcium 9.0 8.5-10.1 mg/dL Performing Lab: see note ML - [facility] LB Manual Differential Reviewed date:12/07/2024 12:58:32 PM Interpretation: Performing Lab: Notes/Report: [facility] , Segmented Neutrophils % Manual 85.0 43.0-75.0 Band Neutrophils % 1.0 0-5 % Lymphocytes Percent Manual 7.0 20.5-60.0 % Monocytes Percent Manual 7.0 1.7-12.0 % Eosinophils Percent Manual 0.0 0.9-7.0 % Basophils Percent Manual 0.0 0.2-2.0 % Segmented Neut Absolute Manual 22.78 1.4-6.5 10 3/uL Band Neutrophils Absolute 0.3 0.0-0.3 10 3/uL Lymphocytes Absolute Manual 1.87 1.20-3.80 10 3/uL Monocytes Absolute Manual 1.87 0.30-0.80 10 3/uL Eosinophils Absolute Manual 0.00 0.00-0.70 10 3/uL Basophils Abs Manual 0.00 0.00-0.10 10 3/uL Performing Lab: see note ML - [facility] LB Troponin I High Sensitivity Reviewed date:12/07/2024 12:58:32 PM Interpretation: Performing Lab: Notes/Report: [facility] , Troponin I High Sensitivity <4.0 4.0-51.3 pg/mL CUT-OFF POINTS HAVE BEEN ESTABLISHED BASED ON THE FOURTH UNIVERSAL DEFINITION OF MYOCARDIAL INFARCTION. THE UPPER REFERENCE LIMIT (URL) OF TROPONIN, DEFINED THE 99TH PERCENTILE OF cTnI DISTRIBUTION IN A REFERENCE POPULATION, HAS BEEN CONFIRMED THE DECISION THRESHOLD FOR SD DIAGNOSIS. 99TH PERCENTILE = 51.4 PG/ML NOTE: HIGH-SENSITIVITY TROPONIN ASSAY IS NOT INTENDED TO BE USED IN ISOLATION BUT SHOULD BE INTERPRETED IN CONJUNCTION WITH OTHER DIAGNOSTIC AND CLINICAL INFORMATION. Performing Lab: see note ML - [facility] LB UA Micro, reflex to culture Reviewed date:12/07/2024 12:58:32 PM Interpretation: Performing Lab: Notes/Report: [facility] , Color Urine YELLOW YELLOW Clarity Urine CLEAR CLEAR Specific [place]irth Urine 1.025 1.005-1.025 pH Urine 6.0 5.0-9.0 Protein Urine 100 NEG/TRACE mg/dL Glucose Urine UA NEGATIVE NEGATIVE mg/dL Bilirubin Urine SMALL NEGATIVE Ketones Urine 15 NEGATIVE mg/dL Blood Urine SMALL NEGATIVE Nitrite Urine NEGATIVE NEGATIVE Urobilinogen Urine 2.0 0.2-1.0 EU/dL Leukocyte Esterase Urine TRACE NEGATIVE WBC Urine 0-2 NONE SEEN #/HPF RBC Urine 0-2 0-2 #/HPF Bacteria Urine TRACE NONE SEEN #/HPF Mucus Urine NONE SEEN NONE SEEN Squamous Epithelial Cell Urine FEW NONE/RARE #/LPF Crystals Seen? None Seen None Seen #/HPF Cast Seen? NONE SEEN NONE SEEN #/LPF Urine Culture Indicated NO Performing Lab: see note ML - [facility] LB XR chest 1V Reviewed date:12/07/2024 12:58:32 PM Interpretation: Performing Lab: Notes/Report: Source Facility: [facility]-[address] [place] [address] [place] [address] XRay Report Signed Patient: RYLEE BURTON MR#: [id number] : 1975 Acct:[id number] Age/Sex: 49 / F ADM Date: 12/05/24 Loc: ER Attending Dr: Ordering Physician: Ellis Payne Date of Service: 12/06/24 Procedure(s): XR chest 1V Accession Number(s): [id number] cc: Ellis Payne; Meenakshi Swenson M.D. [place] [address] Patient Name: RYLEE BURTON MRN: [facility]:[id number] date: 1975 Sex: F Assigned Patient Location: ER Current Patient Location: ER Accession/Order Number: [id number] Exam Date: 12/06/2024 06:20 Report Date: 12/06/2024 09:11 At the request of: ELLIS PAYNE MD Procedure: XR chest 1V Plain film chest Single view HISTORY: Chest pain COMPARISON: 11/26/2024 FINDINGS: SUPPORT DEVICES: None POSTSURGICAL CHANGES: None HEART: Within normal limits PULMONARY FABI: Within normal limits MEDIASTINUM: Unremarkable LUNGS AND PLEURA: No acute lung process, pleural effusion or pneumothorax identified. BONY STRUCTURES: Intact ADDITIONAL FINDINGS None XR/XR chest 1V IMPRESSION: No acute process. Impression dictated by: Abran Matthews M.D. 12/06/2024 9:11 AM Dictation Location: [place] [address] Electronically authenticated by: [id number] Y Date: 12/06/2024 09:11 Dictated By: Abran Matthews D.O. Signed By: 12/06/24913 DD/ 0 TD/TT: Package Liner: Troponin I High Sensitivity Reviewed date:12/07/2024 12:58:32 PM Interpretation: Performing Lab: Notes/Report: [facility] , Troponin I High Sensitivity <4.0 4.0-51.3 pg/mL CUT-OFF POINTS HAVE BEEN ESTABLISHED BASED ON THE FOURTH UNIVERSAL DEFINITION OF MYOCARDIAL INFARCTION. THE UPPER REFERENCE LIMIT (URL) OF TROPONIN, DEFINED THE 99TH PERCENTILE OF cTnI DISTRIBUTION IN A REFERENCE POPULATION, HAS BEEN CONFIRMED THE DECISION THRESHOLD FOR SD DIAGNOSIS. 99TH PERCENTILE = 51.4 PG/ML NOTE: HIGH-SENSITIVITY TROPONIN ASSAY IS NOT INTENDED TO BE USED IN ISOLATION BUT SHOULD BE INTERPRETED IN CONJUNCTION WITH OTHER DIAGNOSTIC AND CLINICAL INFORMATION. Performing Lab: see note ML - [facility] LB CBC AUTO DIFF Reviewed date:12/07/2024 12:58:32 PM Interpretation: Performing Lab: Notes/Report: [facility] , White Blood Count 21.5 4.0-11.0 10 3/uL Red Blood Count 2.44 4.20-5.40 10 6/uL Hemoglobin 7.3 12.0-16.0 g/dL Hematocrit 23.6 36.0-48.0 % RESULTS CALLED TO DR. JENKINS Mean Corpuscular Volume 96.7 81.0-99.0 fL Mean Corpuscular Hemoglobin 29.9 26.7-34.0 pg Mean Corpuscular HGB Conc 30.9 29.9-35.2 g/dL Red Cell Distribution Width 17.8 11.0-15.0 % Platelet Count 821 150-450 10 3/uL Mean Platelet Volume 9.6 9.5-13.5 fL Neutrophils Percent Auto 73.8 43.0-75.0 % Lymphocytes Percent Auto 12.5 20.5-60.0 % Monocytes Percent Auto 10.2 1.7-12.0 % Eosinophils Percent Auto 0.0 0.9-7.0 % Basophils Percent Auto 0.1 0.2-2.0 % Immature Granulocytes Pct Auto 3.4 0.0-0.5 % Neutrophils Absolute Auto 15.8 1.4-6.5 10 3/uL Lymphocytes Absolute Auto 2.7 1.2-3.8 10 3/uL Monocytes Absolute Auto 2.2 0.3-0.8 10 3/uL Eosinophils Absolute Auto 0.0 0.0-0.7 10 3/uL Basophils Absolute Auto 0.0 0.0-0.1 10 3/uL Immature Granulocytes Abs Auto 0.73 0.00-0.03 10 3/uL Performing Lab: see note ML - [facility] LB LACTATE or LACTIC ACID Reviewed date:12/07/2024 12:58:32 PM Interpretation: Performing Lab: Notes/Report: [facility] , Lactate/Lactic Acid 0.3 0.4-2.0 mmol/L Performing Lab: see note ML - [facility] LB CBC AUTO DIFF Reviewed date:12/08/2024 01:17:47 PM Interpretation: Performing Lab: Notes/Report: [facility] , White Blood Count 19.9 4.0-11.0 10 3/uL Red Blood Count 2.61 4.20-5.40 10 6/uL Hemoglobin 7.6 12.0-16.0 g/dL Hematocrit 25.2 36.0-48.0 % Mean Corpuscular Volume 96.6 81.0-99.0 fL Mean Corpuscular Hemoglobin 29.1 26.7-34.0 pg Mean Corpuscular HGB Conc 30.2 29.9-35.2 g/dL Red Cell Distribution Width 17.4 11.0-15.0 % Platelet Count 987 150-450 10 3/uL Mean Platelet Volume 8.3 9.5-13.5 fL Performing Lab: see note - [facility] LB PROF 14(COMP METB) Reviewed date:12/08/2024 01:17:47 PM Interpretation: Performing Lab: Notes/Report: [facility] , Sodium 137 136-145 mmol/L Potassium 2.6 3.5-5.1 mmol/L RESULTS JIN D TO RYLEE ORNELAS RN at 0809 Chloride 100 98-107 mmol/L Carbon Dioxide 29.2 21.0-32.0 mmol/L Anion Gap 10.4 Glucose 85 74-106 mg/dL Blood Urea Nitrogen 8.0 7.0-18.0 mg/dL Creatinine 0.33 0.55-1.02 mg/dL Estimated GFR ( Fang >60 >=60 mL/min/1.73m 2 Estimated GFR (Non- Lizabeth >60 >=60 mL/min/1.73m 2 BUN Creatinine Ratio 24.2 Calcium 8.3 8.5-10.1 mg/dL Bilirubin Total 0.5 0.2-1.0 mg/dL Aspartate Amino Transferase 29 15-37 U/L Alanine Aminotransferase 20 14-59 U/L Alkaline Phosphatase 460 46-116 U/L Total Protein 6.0 6.4-8.2 g/dL Albumin Level 0.8 3.4-5.0 g/dL Globulin 5.2 Albumin Globulin Ratio 0.2 Performing Lab: see note ML - [facility] LB Manual Differential Reviewed date:12/08/2024 01:17:47 PM Interpretation: Performing Lab: Notes/Report: [facility] , Segmented Neutrophils % Manual 81.0 43.0-75.0 Band Neutrophils % 1.0 0-5 % Lymphocytes Percent Manual 16.0 20.5-60.0 % Monocytes Percent Manual 2.0 1.7-12.0 % Eosinophils Percent Manual 0.0 0.9-7.0 % Basophils Percent Manual 0.0 0.2-2.0 % Segmented Neut Absolute Manual 16.11 1.4-6.5 10 3/uL Band Neutrophils Absolute 0.2 0.0-0.3 10 3/uL Lymphocytes Absolute Manual 3.18 1.20-3.80 10 3/uL Monocytes Absolute Manual 0.39 0.30-0.80 10 3/uL Eosinophils Absolute Manual 0.00 0.00-0.70 10 3/uL Basophils Abs Manual 0.00 0.00-0.10 10 3/uL Performing Lab: see note ML - [facility] LB ECG 12 lead Reviewed date:12/08/2024 06:00:03 PM Interpretation: Performing Lab: Notes/Report: Source Facility: [place] [address] Electrocardiograph Report Signed Patient: RYLEE BURTON MR#: [id number] : 1975 Acct:[id number] Age/Sex: 49 / F ADM Date: 12/05/24 Loc: ER Attending Dr: Ordering Physician: Maribeth Jenkins Date of Service: 12/08/24 Procedure(s): ECG 12 lead Accession Number(s): [id number] cc: [facility] Test Date: 2024-12-08 Pat Name: RYLEE BURTON Department: Room: - Gender: Female Beam Doffer: : 1975 Requested By: [id number] Order Number: [id number] Young MD: CHIKI LAMB Measurements Intervals [place] Rate: 101 P: 67 SC: 154 QRS: 79 QRSD: 78 T: 77 QT: 354 QTc: 412 Interpretive Statements 1120 Sinus tachycardia 9140 abnormal rhythm ECG Compared to ECG 11/27/2024 11:49:48 No significant changes Electronically Signed On 12-08-2024 16:50:11 EDT by CHIKI LAMB Dictated By: Chiki Lamb M.D. Signed By: 12/08/24 1650 DD/ 0842 TD/TT: Package Liner: CT abdomen pelvis wo con Reviewed date:11/26/2024 01:00:04 PM Interpretation: Performing Lab: Notes/Report: Source Facility: [place] [address] CT Scan Report Signed Patient: RYLEE BURTON MR#: [id number] : 1975 Acct:[id number] Age/Sex: 49 / F ADM Date: 11/26/24 Loc: ER Attending Dr: Ordering Physician: Alejandro Horowitz Date of Service: 11/26/24 Procedure(s): CT abdomen pelvis wo/w con Accession Number(s): [id number] cc: Meenakshi Swenson M.D. [place] [address] Patient Name: RYLEE BURTON MRN: [id number] date: 1975 Sex: F Assigned Patient Location: ED.MAIN Current Patient Location: ED.MAIN Accession/Order Number: [id number] Exam Date: 11/26/2024 09:35 Report Date: 11/26/2024 [...] Bach M.D. 11/26/2024 10:36 AM Dictation Location: [place] [address] Electronically authenticated by: [id number] Y Date: 11/26/2024 10:36 Dictated By: Iraida Bach M.D. Signed By: 11/26/24 1039 DD/ 1036 TD/TT: Package Liner: CT CHEST W CON Reviewed date:11/26/2024 01:00:04 PM Interpretation: Performing Lab: Notes/Report: Source Facility: [place] [address] CT Scan Report Signed Patient: RYLEE BURTON MR#: [id number] : 1975 Acct:[id number] Age/Sex: 49 / F ADM Date: 11/26/24 Loc: ER Attending Dr: Ordering Physician: Alejandro Horowitz Date of Service: 11/26/24 Procedure(s): CT chest w con Accession Number(s): [id number] cc: Meenakshi Swenson M.D. [place] [address] Patient Name: RYLEE BURTON MRN: [id number] date: 1975 Sex: F Assigned Patient Location: ED.MAIN Current Patient Location: ED.MAIN Accession/Order Number: [id number] Exam Date: 11/26/2024 09:35 Report Date: 11/26/2024 [...] Bach M.D. 11/26/2024 10:36 AM Dictation Location[facility] Electronically authenticated by: [id number] Y Date: 11/26/2024 10:36 Dictated By: Iraida Bach M.D. Signed By: 11/26/24 1039 DD/ 1036 TD/TT: Package Liner: Manual Differential Reviewed date:10/27/2024 01:04:56 PM Interpretation: Performing Lab: Notes/Report: [facility] , Segmented Neutrophils % Manual 77.0 43.0-75.0 [...] 10 3/uL Basophils Abs Manual 0.00 0.00-0.10 10 3/uL Performing Lab: see note ML - [facility] LB ECG 12 lead Reviewed date:10/11/2024 03:08:40 PM Interpretation: Performing Lab: Notes/Report: Source Facility: [place] [address] Electrocardiograph Report Signed Patient: RYLEE BURTON MR#: [id number] : 1975 Acct:[id number] Age/Sex: 49 / F ADM Date: 10/07/24 Loc: MS 202-[address]: Cynthia Hernandez M.D. Ordering Physician: Kobe Jonas M.D. Date of Service: 10/07/24 Procedure(s): ECG 12 lead Accession Number(s): [id number] cc: [facility] Test Date: 2024-10-07 Pat Name: RYLEE BURTON Department: Room: - Gender: Female Beam Doffer: : 1975 Requested By: [id number] Order Number: [id number] Reading MD: CHIKI LAMB Measurements Intervals [place] Rate: 122 P: 78 SC: 154 QRS: 86 QRSD: 72 T: 81 QT: 314 QTc: 387 Interpretive Statements 1120 Sinus tachycardia 9140 abnormal rhythm ECG Compared to ECG 10/07/2024 17:57:24 No significant changes Electronically Signed On 10-10-2024 9:45:53 EDT by CHIKI LAMB Dictated By: Chiki Lamb M.D. Signed By: 10/10/24 0946 DD/ 2152 TD/TT: Package Liner: CT angio chest Reviewed date:10/07/2024 09:58:47 PM Interpretation: Performing Lab: Notes/Report: Source Facility: [facility] [place] [address] CT Scan Report Signed Patient: RYLEE BURTON MR#: [id number] : 1975 Acct:[id number] Age/Sex: 49 / F ADM Date: 10/07/24 Loc: ER Attending Dr: Ordering Physician: Kobe Jonas M.D. Date of Service: 10/07/24 Procedure(s): CT angio chest Accession Number(s): [id number] cc: Meenakshi Swenson M.D. [address] [address] Patient Name: RYLEE BURTON MRN: [facility]:[id number] date: 1975 Sex: F Assigned Patient Location: ER Current Patient Location: ER Accession/Order Number: [id number] Exam Date: 10/07/2024 20:53 Report Date: 10/07/2024 [...] 10/07/2024 9:13 PM Dictation Location: [place] [address] Electronically authenticated by: [id number] Y Date: 10/07/2024 21:13 Dictated By: Seven Wheatley M.D. Signed By: 10/07/242115 DD/ 12 TD/TT: Package Liner: LIVER PROFILE Reviewed date:10/07/2024 08:47:32 PM Interpretation: Performing Lab: Notes/Report: [facility] , Bilirubin Total 0.9 0.2-1.0 mg/dL Bilirubin Direct 0.5 0.0-0.2 mg/dL Aspartate Amino Transferase 38 15-37 U/L Alanine Aminotransferase 42 14-59 U/L Alkaline Phosphatase 696 46-116 U/L Total Protein 8.3 6.4-8.2 g/dL Albumin Level 1.5 3.4-5.0 g/dL Globulin 6.8 Albumin Globulin Ratio 0.2 Performing Lab: see note ML - [facility] LB D-DIMER Reviewed date:10/07/2024 08:47:32 PM Interpretation: Performing Lab: Notes/Report: [facility] , D Dimer 0.59 <=0.59 mg/L [...] Performing Lab: see note ML - [facility] LB BNP Reviewed date:10/07/2024 08:47:32 PM Interpretation: Performing Lab: Notes/Report: [facility] , NT Pro B Type Natriuretic Pept 963.0 <=900.0 pg/mL Performing Lab: see note ML - [facility] LB Manual Differential Reviewed date:09/24/2024 07:13:51 PM Interpretation: Performing Lab: Notes/Report: [facility] , Segmented Neutrophils % Manual 61.0 43.0-75.0 [...] 10 3/uL Basophils Abs Manual 0.00 0.00-0.10 10 3/uL Anisocytosis 2+ Performing Lab: see note [facility] LB PROF 14(COMP METB) Reviewed date:09/21/2024 01:12:51 PM Interpretation: Performing Lab: Notes/Report: [facility] , Sodium 140 136-145 mmol/L Potassium 5.1 [...] 0.3 Performing Lab: see note ML - [facility] LB CT abdomen pelvis w con Reviewed date:09/21/2024 01:12:51 PM Interpretation: Performing Lab: Notes/Report: Source Facility: [place] [address] [place] [address] CT Scan Report Signed Patient: RYLEE BURTON MR#: [id number] : 1975 Acct:[id number] Age/Sex: 49 / F ADM Date: 09/15/24 Loc: MS 202-[address]: Meenakshi Swenson M.D. Ordering Physician: Meenakshi Swenson M.D. Date of Service: 09/21/24 Procedure(s): CT abdomen pelvis w con Accession Number(s): [id number] cc: Domi Altamirano NP [place] [address] Patient Name: RYLEE BURTON MRN: [id number] date: 1975 Sex: F Assigned Patient Location: [place] Current Patient Location: [place] Accession/Order Number: [id number] Exam Date: 09/21/2024 10:41 Report Date: 09/21/2024 [...] Higuera M.D. 09/21/2024 10:48 AM Dictation Location: [place] [address] Electronically authenticated by: [id number] Y Date: 09/21/2024 10:48 Dictated By: Bonilla Higuera M.D. Signed By: 09/21/24 1051 DD/ 1048 TD/TT: Package Liner: PROF Pope(COMP METB) Reviewed date:09/21/2024 01:12:51 PM Interpretation: Performing Lab: Notes/Report: [facility] , Sodium 140 136-145 mmol/L Potassium 4.7 [...] Performing Lab: see note ML - [facility] LB LIPASE Reviewed date:09/21/2024 01:12:51 PM Interpretation: Performing Lab: Notes/Report: Comment use am blood for amylase lipase? [facility] , Lipase 22.0 16.0-77.0 U/L Performing Lab: see note - [facility] CBC AUTO DIFF Reviewed date:09/21/2024 01:12:51 PM Interpretation: Performing Lab: Notes/Report: [facility] , White Blood Count 22.7 4.0-11.0 10 [...] 10 3/uL Performing Lab: see note - [facility] LB AMYLASE Reviewed date:09/21/2024 01:12:51 PM Interpretation: Performing Lab: Notes/Report: Comment use am blood for amylase lipase? [facility] , Amylase 15 25-115 U/L Performing Lab: see note ML - [facility] LB TSH Reviewed date:09/18/2024 07:21:43 PM Interpretation: Performing Lab: Notes/Report: Comment use am blood [facility] , Thyroid Stimulating Hormone 0.751 0.358-3.740 uIU/mL Performing Lab: see note - [facility] LB T4 Reviewed date:09/18/2024 07:21:43 PM Interpretation: Performing Lab: Notes/Report: Comment use am blood [facility] , T4 Thyroxine 6.60 4.80-13.90 ug/dL Performing Lab: see note [facility] LB LACTATE or LACTIC ACID Reviewed date:09/18/2024 07:21:43 PM Interpretation: Performing Lab: Notes/Report: [facility] , Lactate/Lactic Acid 1.2 0.4-2.0 mmol/L Performing Lab: see note [facility] PROF 14(COMP METB) Reviewed date:10/20/2024 01:42:51 PM Interpretation: Performing Lab: Notes/Report: [facility] , Sodium 138 136-145 mmol/L Potassium 2.5 3.5-5.1 mmol/L RESULTS JIN D TO JUAN RUBALCAVA LPN at 1320 Chloride 94 98-107 mmol/L Carbon [...] Ratio 0.2 Performing Lab: see note - [facility] LB CBC AUTO DIFF Reviewed date:10/20/2024 01:00:43 PM Interpretation: Performing Lab: Notes/Report: [facility] , White Blood Count 15.4 4.0-11.0 10 [...] 3/uL Performing Lab: see note ML - [facility] LB CBC AUTO DIFF Reviewed date:12/15/2024 08:56:18 PM Interpretation: Performing Lab: Notes/Report: [facility] , White Blood Count 15.5 4.0-11.0 10 3/uL Red Blood Count 2.89 4.20-5.40 10 6/uL Hemoglobin 8.5 12.0-16.0 g/dL Hematocrit 28.4 36.0-48.0 % Mean Corpuscular Volume 98.3 81.0-99.0 fL Mean Corpuscular Hemoglobin 29.4 26.7-34.0 pg Mean Corpuscular HGB Conc 29.9 29.9-35.2 g/dL Red Cell Distribution Width 16.9 11.0-15.0 % Platelet Count 1061 150-450 10 3/uL RESULTS CA LLED TO DR. MEENAKSHI SWENSON at 1550 Mean Platelet Volume 7.9 9.5-13.5 fL Neutrophils Percent Auto 64.7 43.0-75.0 % Lymphocytes Percent Auto 23.4 20.5-60.0 % Monocytes Percent Auto 9.7 1.7-12.0 % Eosinophils Percent Auto 0.3 0.9-7.0 % Basophils Percent Auto 0.5 0.2-2.0 % Immature Granulocytes Pct Auto 1.4 0.0-0.5 % Neutrophils Absolute Auto 10.0 1.4-6.5 10 3/uL Lymphocytes Absolute Auto 3.6 1.2-3.8 10 3/uL Monocytes Absolute Auto 1.5 0.3-0.8 10 3/uL Eosinophils Absolute Auto 0.1 0.0-0.7 10 3/uL Basophils Absolute Auto 0.1 0.0-0.1 10 3/uL Immature Granulocytes Abs Auto 0.21 0.00-0.03 10 3/uL Performing Lab: see note ML - [facility] LB Reason For Referral Diagnosis 1 Thrombocythemia (D47 .3) Referral Organization [facility] Referring Provider First Name Mansoor Referring Provider Last Name Leela Referring Provider [facility] ino Referred Provider Timmy Duval Referred Provider Specialty Oncology Referral Priority Routine Reason please schedule lane Diagnosis 1 CHF (congestive hear t failure) (I50.9) Referral Organization [facility] Referring Provider First Name Mansoor Referring Provider Last Name Leela [facility] Special[facility] Cardiology Referral Priority Routine Medications Medication SIG (Take, Route, Frequency, Duration) Notes Start Date End Date Status Glucerna Shake - Drink 237ml Orally three times daily DXE43; Duration: 30 days 90 Bottles for 30 days- needs 21,330 ml for one month 11/18/2024 Active Losartan Potassium 50 MG 1 tablet Orally Once a day; Duration: 90 days Active Omeprazole 40 MG 1 tablet Oral Twice Daily; Duration: 90 days Active Hydroxyurea 500 MG 1 capsule Orally Once a day Unknown Albuterol Sulfate HFA 108 (90 Base) MCG/ACT INHALE 2 PUFFS EVERY 6 HOURS IF NEEDED FOR WHEEZING OR SHORTNESS OF BREATH. Inhalation; Duration: 90 Days Active Gabapentin 600 MG TAKE 1/2 TABLET BY MOUTH EVERY 8 HOURS Oral; Duration: 30 days Active Indomethacin 50 MG 1 capsule with food or milk Orally Twice a day; Duration: 10 days 10/03/2024 Unknown Potassium Chloride ER 20 MEQ 1 tablet with food Orally Once a day; Duration: 90 days Active Promethazine HCl 12.5 MG 1 tablet as needed Orally every 6 hrs Active oxyCODONE HCl 5 MG 1 tablet as needed Orally every 6 hrs; Duration: 30 days M54.9 Active Propranolol HCl 20 [...] Problem Status W/U Status Risk Notes Problem Cachexia (287878576) Cachexia (R64) Active conf irmed Problem Hypertension (33174536) Hypertension (I10) Active confirmed Problem Asthma (180734521) Asthma (J45.909) Active conf irmed Problem COPD - Chronic obstructive pulmonary disease (84595588) COPD (chronic obstructive pulmonary disease) (J44.9) Active confirmed Problem Congestive heart failure (99802568) CHF (congestive heart failure) (I50.9) Active confirmed Problem Back pain (897916433) Back pain (M54.9) Active confirmed Problem Thrombocytopenia (897157463) Thrombocytopenia (D69.6) Active confirmed Problem Thrombocythemia (0469592) Thrombocythemia (D47.3) Active confirmed Problem Pertussis (12798653) Pertussis (A37.90) Active confirmed Problem Myeloproliferative disorder (971304117) Myeloproliferative disorder (D47.1) Active confirmed Problem hypercholesterolemia (disorder) (88990596) Hypercholesteremia (E78.00) Active confirmed Problem Severe malnutrition (63371224) Severe malnutrition (E43) Active confirmed Problem Anemia (896437331) Acute anemia (D64.9) Active confirmed Vital Signs Blood pressure diastolic 60 mm Hg 12/01/2024 Height 66 in 12/01/2024 Blood pressure systolic 98 mm Hg 12/01/2024 Weight 97.2 lbs 12/01/2024 BMI 15.69 kg/m2 12/01/2024 Encounters Encounter Location Date Provider Diagnosis [facility] Oncology [address] [place] [address] 09/30/2024 Katerine Meron [facility] [address] [place] [address] 10/01/2024 Mansoor Swenson COPD (chronic obstru ctive pulmonary disease) J44.9 ; Anemia D64.9 and Thrombocythemia D47.3 [place] [address] [place] [address] 12/01/2024 Mansoor Swenson Hypertension I10 ; C OPD (chronic obstructive pulmonary disease) J44.9 ; Thrombocythemia D47.3 ; Acute anemia D64.9 and Back pain M54.9 [facility] [address] [place] [address] 10/20/2024 Mansoor Swenson Acute bronchitis, unspecified organism J20.9 ; Hypertension I10 ; Asthma J45.909 and Myeloproliferative disorder D47.1 [facility] [address] [place] [address] 09/21/2024 Mansoor Swenson [facility] [address] [place] [address] 09/23/2024 Mansoor Swenson [facility] [address] [place] [address] 09/23/2024 Mansoor Swenson Pertussis A37.90 [facility] [address] [place] [address] 09/23/2024 Mansoor Swenson [facility] [address] [place] [address] 09/24/2024 Mansoor Swenson Acute anemia D64.9 [facility] [address] [place] [facility] [address] 12/07/2024 Mansoor Swenson [facility] [address] [place] [facility] [place] [address] 12/12/2024 Mansoor Rody [facility] [address] [place] [facility] [place] [address] 12/15/2024 Mansoor Rody [facility] [address] [place] [facility] [place] [address] 11/27/2024 Mansoor Swenson [facility] [address] [place] [facility] [place] [address] 11/28/2024 Mansoor Swenson [facility] [address] [place] [address] 11/28/2024 Mansoor Swenson [facility] [address] [place] [place] [address] 12/01/2024 Mansoor Swenson Thrombocythemia D47. 3 [facility] [address] [place] [place] [address] 12/01/2024 Mansoor Swenson CHF (congestive hear t failure) I50.9 [facility] [address] [place] [address] 12/04/2024 Mansoor Rody [facility] [address] [place] [address] 11/13/2024 Mansoor Swenson Thrombocythemia D47. 3 [facility] [address] [place] [place] [address] 11/18/2024 Mansoor Swenson [facility] [address] [place] [place] [address] 11/18/2024 Mansoor Swenson [facility] [address] [place] [place] [place] [address] 11/20/2024 Mansoor Swenson [facility] [address] [place] [place] [address] 11/21/2024 Mansoor Swenson [facility] [address] [place] [place] [place] [address] 11/26/2024 Mansoor Swenson [facility] [address] [place] [place] [address] 10/20/2024 Mansoor Swenson [facility] [address] [place] [place] [address] 10/27/2024 Mansoor Swenson [facility] [address] [facility] [place] [address] 10/31/2024 Mansoor Swenson Anemia D64.9 and Generalized weakness R53.1 [facility] [address] [place] [place] [address] 11/02/2024 Mansoor alisa [facility] [address] [place] [place] [address] 11/05/2024 Mansoor alisa [facility] [address] [place] [place] [address] 11/13/2024 Mansoor Rodalisa [facility] [address] [place] [place] [address] 10/03/2024 Mansoor Swenson COPD (chronic obstru ctive pulmonary disease) J44.9 [facility] [address] [place] [place] [address] 10/07/2024 Mansoor Swenson [facility] [address] [place] [place] [address] 10/11/2024 Mansoor Swenson [facility] [address] [place] [place] [address] 10/20/2024 Mansoor Rodalisa [facility] [address] [place] [place] [address] 10/20/2024 Mansoor Swenson [facility] [address] [place] [place] [address] 10/20/2024 Mansoor Swenson Assessments Encounter Date Diagnosis (ICD Code) Assessment Notes Treatment Notes Treatment Clinical Notes Section Notes 10/01/2024 COPD (chronic obstructive pulmonary disease) (ICD-10 - J44.9) 10/01/2024 Anemia (ICD-10 - D64.9) 10/20/2024 Hypertension (ICD-10 - I10) 10/20/2024 Acute bronchitis, unspecified organism (ICD-10 - J20.9) Rest and drink more liquids, especially water. You may use a humidifier or vaporizer to help keep the drainage moist. Bieq-itd-esmlqeu Nasal Saline may help the stuffy and runny nose. Use Ibuprofen and or Tylenol as needed for fever, chills, body aches or pain. Children 5 years old should not be given brdp-kri-jnkepdi cough and cold medications such as guaifenesin and dextromethorphan. If you're over age 5, you may try tuim-lts-qaovkhe cold medications such as guaifenesin and dextromethorphan, [...] to the emergency room or call 911 12/01/2024 Hypertension (ICD-10 - I10) 12/01/2024 COPD [...] (congestive hear t failure) (ICD-10 - I50.9) 10/20/2024 Asthma (ICD-10 - J45.909) 10/01/2024 Thrombocythemia (ICD-10 - D47.3) 12/01/2024 Thrombocythemia (ICD-10 - D47.3) 12/01/2024 Acute anemia (ICD-10 - D64.9) 10/20/2024 Myeloproliferative disorder (ICD-10 - D47.1) 12/01/2024 Back pain (ICD-10 - M54.9) Plan [...] Coverage End Date [employer] [address] [place] [address] [id number] Rylee Burton Self - patient is the insured Medications Administered Medication Instructions Date of Administration Dosage Notes Ketorolac Tromethamine 10/01/2024 60 mg Orphenadrine Citrate 10/01/2024 60 mg Medical (General) History Medical History History ICD Code Hypertension I10 Asthma J45.909 COPD (chronic obstructive pulmonary dise ase) J44.9 Anemia D64.9 Hypercholesteremia E78.00 Surgical History Surgery Date(Month/Year) Bone Marrow Biopsy Exploratory Appendectomy Gall Bladder Removal Tubal Clavical Hospitalization History Reason Date(Month/Year) abd pain 12/18 [facility]/ Myeloproliferative Neoplasms 09/2024 Anemia, Weakness 08/2024
--- OUTSIDE RECORDS SUMMARY | 2024-12-16 14:17 | XMS_ITS | Encounter Summary ---
Demographics Address [address] [facility] [address] [place] [address] Mobile Phone Home Phone Work Phone Email Address Preferred Language en Marital Status Jewish Affiliation Unknown Race White Ethnic Group Not or Lati no Author Organization [facility] Address [address] [place] [address] Care Team Providers Care Leather Stripping Machine Operator Name Role Phone Domi Altamirano [employer] Unavailable [phone] Hiren Horton MD Primary Care Provider [phone] Domi Altamirano [employer] Unavailable [phone] Domi Altamirano NP Unavailable [phone] Unallocated, Noms Provider Primary Care Provi taylor Encounter Details Date Type Department Care Team (Late st Contact Info) Description 09/17/2024 Orders Only [facility] [address] [facility] [place] [address] Li Ku MD [address] [place] [address] Social History Tobacco Use Types Packs/Day [...] How often do you attend nondenominational or mandaen serv ices? Never 10/08/2023 Do [...] on filedocumented in this encounter Care Teams Leather Stripping Machine Operator Relationship Specialty Start Date End Date Hiren Horton MD PCP - General Family Medicine 07/26/23 10/13/24 Domi Altamirano NP [address] [place] [address] PCP - [employer] 08/24/24 Unallocated, Carol Ann Ferrell MD [address] [place] [address] PCP - General Family Medicine 10/14/24 Domi Altamirano NP Nurse Practitioner Family Medicine 03/26/22 10/13/24 Domi Altamirano NP Nurse Practitioner Family Medicine 07/26/23 10/13/24 documented as of this encounter
--- OUTSIDE RECORDS SUMMARY | 2024-12-16 14:17 | XMS_ITS | Encounter Summary ---
Demographics Address [address] [place] [address] Mobile Phone Home Phone Work Phone Email Address Preferred Language en Marital Status Taoist Affiliation Unknown Race White Ethnic Group Not or Lati no Author Organization [facility] Address [address] [place] [address] Care Team Providers Care Towel Inspector Name Role Phone Domi Altamirano NP Unavailable [phone] Hiren Horotn MD Primary Care Provider [phone] Domi Altamirano NP Unavailable [phone] Domi Altamirano NP Unavailable [phone] Unallocated, Noms Provider Primary Care Provi [...] declined 10/08/2023 How often do you attend anabaptist or latter-day serv ices? Never 10/08/2023 Do you belong to any clubs o r organizations such as anabaptist groups, unions, fraternal or athletic groups, or [...] medical care, and heating? Very hard 10/08/2023 [facility] Occupat ional Health - [...] time in the past 12 m [facility], were you homeless or living in a [...] AM EDT Narrative 10/09/2023 7:09 [place] [address] Ultrasound Report Signed Patient: JAIME MERRILL MR#: [id number] : 1975 Acct:[id number] Age/Sex: 48 / F ADM Date: 10/08/23 Loc: US Attending Dr: Domi Howard UTILITY WORKER [place] Ordering Physician: Domi Howard NP Date of Service: 10/08/23 Procedure(s): US pelvis transvaginal Accession Number(s): [id number] cc: Domi Altamirano NP; Domi Howard NP [address] [address] Patient Name: JAIME MERRILL MRN: [id number] date: 1975 Sex: F Assigned Patient Location: US Current Patient Location: Accession/Order Number: [id number] Exam Date: 10/08/2023 18:28 Report Date: 10/09/2023 [...] M.D. Signed By: 10/09/2309 DD/ 5 TD/TT: Physician Coder: Procedure Note Radiology, Radiologist, MD - 10/09/2023 [place] [address] Ultrasound Report Signed Patient: JAIME MERRILL KMR#: [id number] : 1975Acct:[id number] Age/Sex: 48 / FADM Date: 10/08/23 Loc: US Attending Dr: Domi Howard NP Ordering Physician: Domi Howard NP Date of Service: 10/08/23 Procedure(s): US pelvis transvaginal Accession Number(s): [id number] cc: Domi Altamirano NP; Domi Howard NP The [address] [address] Patient Name: JAIME MERRILL MRN: [id number] date: 1975 Sex: F Assigned Patient Location: US Current Patient Location: Accession/Order Number: [id number] Exam Date: 10/08/2023 18:28 Report Date: 10/09/2023 [...] M.D. Signed By:10/09/23 0709 DD/ 0706 TD/TT: Physician Coder: us Generic External Data Provider [facility] Final Result documented in this encounter Visit Diagnoses Not on filedocumented in this encounter Care Teams Towel Inspector Relationship Specialty Start Date End Date Hiren Horton MD PCP - General Family Medicine 07/26/23 10/13/24 Domi Altamirano NP [address] [place] [address] [facility] 08/24/[facility] Unallocated, Noms Provider, [address] [place] [address] PCP - General Family Medicine 10/14/24 Domi Altamirano NP Nurse Practitioner Family Medicine 03/26/22 10/13/24 Domi Altamirano NP Nurse Practitioner Family Medicine 07/26/23 10/13/24 documented as of this encounter
--- OUTSIDE RECORDS SUMMARY | 2024-12-16 14:17 | XMS_ITS | Encounter Summary ---
Demographics Address [address] [facility] [address] [place] [address] Mobile Phone Home Phone Email Address Preferred Language ENG Marital Status Single Bahai Affiliation Unknown Race White Ethnic Group Not or Lati no Author Organization [facility] Address [address] [place] [address] Care Team Providers Care Mine Equipment Design Engineer Name Role Phone Lizzette Malik CNP Primary Care Provider [phone] Domi Altamirano TIRE SPECIALIST Unavailable [phone] Source Comments In the event this information is protected by the Federal Confidentiality of Alcohol and Drug AbusePatient Records regulations: The Federal rules restrict any use of the information to criminally investigate or prosecute any alcohol or drug abuse patient.[facility] Reason for Visit * Reason Comments Radiology CT Encounter Details Date Type Department Care Team (Late st Contact Info) Description 06/20/2017 Radiology Radiology [address] [place] [address] Lizzette Malik, TIRE SPECIALIST [address] [place] [address] Social History Tobacco Use Types [...] on filedocumented in this encounter Care Teams Mine Equipment Design Engineer Relationship Specialty Start Date End Date Lizzette Malik CNP PCP - General Family Medicine 12/04/14 Domi Altamirano CNP Referring Family Medicine 10/14/21 documented as of this encounter
--- OUTSIDE RECORDS SUMMARY | 2024-12-16 14:17 | XMS_ITS | Encounter Summary ---
Demographics Address [address] [facility] [address] [place] [address] Mobile Phone Home Phone Work Phone Email Address Preferred Language en Marital Status Adventist Affiliation Unknown Race White Ethnic Group Not or Lati no Author Organization [facility] Address [address] [place] [address] Care Team Providers Care Java Performance Engineer Name Role Phone Domi Altamirano NP Unavailable [phone] Hiren Horton MD Primary Care Provider [phone] Domi Altamirano OUTSIDE SALES ACCOUNT EXECUTIVE Unavailable [phone] Domi Altamirano NP Unavailable [phone] Unallocated, Noms Provider Primary Care Provi taylor Encounter Details Date Type Department Care Team (Late st Contact Info) Description 09/23/2024 Abstract [facility] [address] [place] [address] Domi Altamirano, OUTSIDE SALES ACCOUNT EXECUTIVE [address] [facility] [place] [address] Social History Tobacco Use Types Packs/Day Years [...] How often do you attend anabaptist or nondenominational serv ices? Never 10/08/2023 Do [...] care, and heating? Very hard 10/08/2023 [facility] of Occupat ional Health - Occupational Stress [...] any time in the past 12 m [facility], were you homeless or [...] filedocumented in this encounter Care Teams Java Performance Engineer Relationship Specialty Start Date End Date Hiren Horton MD PCP - General Family Medicine 07/26/23 10/13/24 Domi Altamirano NP [address] [place] [address] PCP - [place] [employer] 08/24/24 Unallocated, Noms Provider, [address] [place] [address] PCP - General Family Medicine 10/14/24 Domi Altamirano NP Nurse Practitioner Family Medicine 03/26/22 10/13/24 Domi Altamirano NP Nurse Practitioner Family Medicine 07/26/23 10/13/24 documented as of this encounter
--- OUTSIDE RECORDS SUMMARY | 2024-12-16 14:17 | XMS_ITS | Encounter Summary ---
Demographics Address [address] [facility] [address] [place] [address] Mobile Phone Home Phone Work Phone Email Address Preferred Language en Marital Status Oriental Orthodox Affiliation Unknown Race White Ethnic Group Not or Lati no Author Organization [facility] Address [address] [place] [address] Care Team Providers Care Gymnastic Teacher Name Role Phone Domi Altamirano NP Unavailable [phone] Hiren Horton MD Primary Care Provider Domi Altamirano LAB SUPPORT SERVICE TECH Unavailable [phone] Domi Altamirano NP Unavailable [phone] Unallocated, Noms Provider Primary Care Provi taylor Encounter Details Date Type Department Care Team (Late st Contact Info) Description 09/16/2024 Orders Only [facility] [address] [place] [address] Domi Altamirano, LAB SUPPORT SERVICE TECH [address] [place] [address] Social History Tobacco Use Types Packs/Day Years [...] declined 10/08/2023 How often do you attend adventist or scientology serv ices? Never 10/08/2023 Do you belong to any clubs o r organizations such as adventist groups, unions, fraternal or athletic groups, or [...] medical care, and heating? Very hard 10/08/2023 [facility] of Occupat ional Health - Occupational Stress [...] on filedocumented in this encounter Care Teams Gymnastic Teacher Relationship Specialty Start Date End Date Hiren Horton MD PCP - General Family Medicine 07/26/23 10/13/24 Domi Altamirano NP [address] [place] [place] [address] PCP - [facility] 08/24/24 Unallocated, Noms Mariaelena, [address] [place] [address] PCP - General Family Medicine 10/14/24 Domi Altamirano NP Nurse Practitioner Family Medicine 03/26/22 10/13/24 Domi Altamirano NP Nurse Practitioner Family Medicine 07/26/23 10/13/24 documented as of this encounter
--- OUTSIDE RECORDS SUMMARY | 2024-12-16 14:17 | XMS_ITS | Encounter Summary ---
Demographics Address [address] [facility] [address] [place] [address] Mobile Phone Home Phone Work Phone Email Address Preferred Language en Marital Status Latter-Day Affiliation Unknown Race White Ethnic Group Not or Lati no Author Organization [facility] Address [address] [place] [address] Care Team Providers Care Rn Burn Name Role Phone Domi Altamirano NP Unavailable [phone] Hiren Horton MD Primary Care Provider Domi Altamirano PHARMACY SCHEDULER Unavailable [phone] Domi Altamirano NP Unavailable [phone] Unallocated, Noms Provider Primary Care Provi taylor Encounter Details Date Type Department Care Team (Late st Contact Info) Description 09/22/2024 Abstract [facility] [address] [place] [address] Domi Altamirano, PHARMACY SCHEDULER [address] [place] [address] Social History Tobacco Use Types Packs/Day Years [...] How often do you attend mormonism or jehovah's witness serv ices? Never 10/08/2023 [...] medical care, and heating? Very hard 10/08/2023 [facility] [place] of Occupat ional Health - Occupational Stress [...] the past [address] [facility], were you homeless or living in a [...] filedocumented in this encounter Care Teams Rn Burn Relationship Specialty Start Date End Date Hiren Horton MD PCP - General Family Medicine 07/26/23 10/13/24 Domi Altamirano NP [address] [place] [address] PCP - [place] [employer] 08/24/24 Unallocated, Noms Provider, [address] [place] [address] PCP - General Family Medicine 10/14/24 Domi Altamirano NP Nurse Practitioner Family Medicine 03/26/22 10/13/24 Domi Altamirano NP Nurse Practitioner Family Medicine 07/26/23 10/13/24 documented as of this encounter
--- OUTSIDE RECORDS SUMMARY | 2024-12-16 14:17 | XMS_ITS | Clinical Summary ---
Demographics Address [address] [facility] [address] [place] [address] Mobile Phone Home Phone Email Address Preferred Language ENG Marital Status Single Gnosticism Affiliation Unknown Race White Ethnic Group Not or Lati no Author Organization [facility] Address [address] [place] [address] Care Team Providers Care Ballet Dancer Name Role Phone Lizzette Malik FORESTRY BIOLOGY SPECIALIST Primary Care Provider [phone] Domi Altamirano FORESTRY BIOLOGY SPECIALIST Unavailable [phone] Allergies Active Allergy Reactions Criticality Noted Date [...] Active Active Problems No known active problems Encounters Date Type Department Care Team Description 12/08/2024 Patient Update Hematology/Oncology [address] [place] [address] Self from Last 3 Months Social History Tobacco Use Types Packs/Day Years [...] 08/23/2020 Colonoscopy 08/23/2020 Colorectal Cancer Screening 08/23/2020 Fecal Occult Blood 08/23/2020 Lipid Screening 08/23/2020 Sigmoidoscopy 08/23/2020 Influenza Vaccine (#1) 2024 Diabetes Screening 07/23/2027 07/22/2024, 0 06/19/2017, 06/14/2017, Additional history exists Procedures Procedure Name Priority Date/Time Associated Diagnosis Comments MRI OUTSIDE CD DICOM IMPORT 12/03/2024 CT OUTSIDE CD DICOM IMPORT 11/25/2024 US OUTSIDE CD DICOM IMPORT 11/12/2024 US OUTSIDE CD DICOM IMPORT 11/12/2024 CT OUTSIDE CD DICOM IMPORT 10/10/2024 COMPREHENSIVE METABOLIC PANEL STAT 06/19/2017 10:35 PM EDT from Last 3 Months or Most Recently Relevant to Health Maintenance Results * ID-MR MRCP IMPORT (12/03/2024) Anatomical Region Laterality Modality Other 12/03/2024 Narrative 12/08/2024 2:54 PM EDT Images were obtained outside of [facility] Procedure Note Provider, [facility] [place] - 12/08/2024 Images were obtained outside of [facility] us [facility] Provider MRI Final Result * CT-CT abdomen pelvis wo con IMPORT (11/25/2024) Anatomical Region Laterality Modality Other 11/25/2024 Narrative 12/08/2024 2:54 PM EDT Images were obtained outside of [facility] Procedure Note Provider, [facility] [place] - 12/08/2024 Images were obtained outside of [facility] us [facility] Provider RADIOLOGY Final Result * US-US spleen IMPORT (11/12/2024) Anatomical Region Laterality Modality Other 11/12/2024 Narrative 12/08/2024 2:56 PM EDT Images were obtained outside of [facility] Procedure Note Provider, [facility] [place] - 12/08/2024 Images were obtained outside of [facility] us [facility] Provider RADIOLOGY Final Result * US-US liver IMPORT (11/12/2024) Anatomical Region Laterality Modality Other 11/12/2024 Narrative 12/08/2024 2:54 PM EDT Images were obtained outside of [facility] Procedure Note Provider, [facility] [place] - 12/08/2024 Images were obtained outside of [facility] us [facility] Provider RADIOLOGY Final Result * CT-CT guided bone marrow bx/aspir IMPORT (10/10/2024) Anatomical Region Laterality Modality Other 10/10/2024 Narrative 12/08/2024 3:01 PM EDT Images were obtained outside of [facility] Procedure Note Provider, [facility] [place] - 12/08/2024 Images were obtained outside of [facility] Provider RADIOLOGY Final Result * (ABNORMAL) COMP METABOLIC PANEL (06/19/2017 10:35 PM EDT) Protein, Total 6.9 6.3 - 8.0 g/dL 06/19/2017 11:09 PM EDT [facility] Albumin 4.4 3.9 - 4.9 g/dL 06/19/2017 11:09 PM T [facility] Calcium 9.4 8.5 - 10.2 mg/dL 06/19/2017 11:09 PM T [facility] Bilirubin, Total <0.2(L) 0.2 - 1.3 mg/dL 06/19/2017 11:09 PM [facility] Alkaline Phosphatase 64 32 - 117 U/L 06/19/2017 11:09 PM T [facility] AST 11(L) 13 - 35 U/L 06/19/2017 11:09 PM [facility] Glucose 100(H) 74 - 99 mg/dL 06/19/2017 11:09 PM T [facility] Comment: The [place] Diabetes Association (ADA) provides guidance for cutoff [...] Standards of Medical Care in Diabetes 2016, [place] Diabetes Association. Diabetes Care. 2016.39(Suppl 1). BUN 11 7 - 21 mg/dL 06/19/2017 11:09 PM T [facility] Creatinine 0.75 0.58 - 0.96 mg/dL 06/19/2017 11:09 PM EDT [facility] Sodium 138 136 - 144 mmol/L 06/19/2017 11:09 PM EDT [facility] Potassium 4.0 3.7 - 5.1 mmol/L 06/19/2017 11:09 PM EDT [facility] Chloride 103 97 - 105 mmol/L 06/19/2017 11:09 PM EDT [facility] CO2 24 22 - 30 mmol/L 06/19/2017 11:09 PM EDT [facility] Anion Gap 11 9 - 18 mmol/L 06/19/2017 11:09 PM EDT [facility] ALT 11 7 - 38 U/L 06/19/2017 11:09 PM EDT [facility] eGFR- >60 06/19/2017 11:09 PM EDT [facility] eGFR-All Other Races >60 . 06/19/2017 11:09 PM EDT [facility] Comment: eGFR (Estimated GFR) Units of [...] us Evan Ruiz MD LABORATORY Final Result [facility] [address] [place] [address] from Last 3 Months or Most Recently Relevant to Health Maintenance Care Teams Ballet Dancer Relationship Specialty Start Date End Date Lizzette Malik CNP PCP - General Family Medicine 12/04/14 Domi Altamirano CNP Referring Family Medicine 10/14/21
--- OUTSIDE RECORDS SUMMARY | 2024-12-16 14:17 | XMS_ITS | Encounter Summary ---
Demographics Address [address] [facility] [address] [place] [address] Mobile Phone Home Phone Work Phone Email Address Preferred Language en Marital Status Buddhist Affiliation Unknown Race White Ethnic Group Not or Lati no Author Organization [facility] Address [address] [place] [address] Care Team Providers Care Lithographers Printer Name Role Phone Domi Altamirano NP Unavailable [phone] Hiren Horton MD Primary Care Provider [phone] Domi Altamirano HOUSING MANAGEMENT OFFICER Unavailable [phone] Domi Altamirano NP Unavailable [phone] Unallocated, Noms Provider Primary Care Provi taylor Encounter Details Date Type Department Care Team (Late st Contact Info) Description 09/17/2024 Abstract [facility] [address] [place] [address] Domi Altamirano, HOUSING MANAGEMENT OFFICER [address] [place] [address] Social History Tobacco Use Types Packs/Day Years [...] How often do you attend taoism or lutheran serv ices? Never 10/08/2023 Do [...] medical care, and heating? Very hard 10/08/2023 [facility] [place] of Occupat ional Health - Occupational Stress [...] in the past 12 m [facility], were you homeless or living [...] 07/26/23 10/13/24 Domi Altamirano NP [address] [place] [address] PCP - [place] [employer] 08/24/24 Unallocated, Noms Provider, [address] [place] [address] PCP - General Family Medicine 10/14/24 Domi Altamirano NP Nurse Practitioner Family Medicine 03/26/22 10/13/24 Domi Altamirano NP Nurse Practitioner Family Medicine 07/26/23 10/13/24 documented as of this encounter
--- OUTSIDE RECORDS SUMMARY | 2024-12-16 14:17 | XMS_ITS | Encounter Summary ---
Demographics Address [address] [facility] [address] [place] [address] Mobile Phone Home Phone Work Phone Email Address Preferred Language en Marital Status Scientology Affiliation Unknown Race White Ethnic Group Not or Lati no Author Organization [facility] Address [address] [place] [address] Care Team Providers Care Chief Telephone Operator Name Role Phone Domi Altamirano NP Unavailable [phone] Hiren Horton MD Primary Care Provider Domi Altamirano SCALER PACKER Unavailable [phone] Domi Altamirano NP Unavailable [phone] Unallocated, Noms Provider Primary Care Provi taylor Encounter Details Date Type Department Care Team (Late st Contact Info) Description 09/17/2024 Abstract [facility] [address] [place] [address] Domi Altamirano, SCALER PACKER [address] [place] [address] Social History Tobacco Use Types Packs/Day Years [...] declined 10/08/2023 How often do you attend amish or latter day serv ices? Never 10/08/2023 Do you belong to any clubs o r organizations such as amish groups, unions, fraternal or athletic groups, or [...] medical care, and heating? Very hard 10/08/2023 [facility] [place] of Occupat ional Health - Occupational Stress [...] time in the past 12 m [facility], were you homeless or living in [...] filedocumented in this encounter Care Teams Chief Telephone Operator Relationship Specialty Start Date End Date Hiren Horton MD PCP - General Family Medicine 07/26/23 10/13/24 Domi Altamirano NP [address] [place] [address] PCP - [place] [employer] 08/24/24 Unallocated, Noms Provider, [address] [place] [address] PCP - General Family Medicine 10/14/24 Domi Altamirano NP Nurse Practitioner Family Medicine 03/26/22 10/13/24 Domi Altamirano NP Nurse Practitioner Family Medicine 07/26/23 10/13/24 documented as of this encounter
--- OUTSIDE RECORDS SUMMARY | 2024-12-16 14:17 | XMS_ITS | Encounter Summary ---
Demographics Address [address] [address] Mobile Phone Home Phone Work Phone Email Address Preferred Language en Marital Status Pentecostalism Affiliation Unknown Race White Ethnic Group Not or Lati no Author Organization [facility] Address [address] [place] [address] Care Team Providers Care Subsea Engineer Name Role Phone Domi Altamirano [employer] FLATBED DRIVER Unavailable [phone] Hiren Horton MD Primary Care Provider [phone] Domi Atlamirano NP Unavailable [phone] Domi Altamirano NP Unavailable [phone] Unallocated, Noms Provider Primary Care Provi taylor Encounter Details Date Type Department Care Team (Late st Contact Info) Description 09/22/2024 Orders Only [facility] [address] [facility] [place] [address] Nakul Swenson MD [address] [facility] [place] [address] Social History Tobacco Use Types [...] How often do you attend anabaptist or buddhist serv ices? Never 10/08/2023 Do [...] any time in the past 12 m [facility], were you homeless or living in a [...] on filedocumented in this encounter Care Teams Subsea Engineer Relationship Specialty Start Date End Date Hiren Horton MD PCP - General Family Medicine 07/26/23 10/13/24 Domi Altamirano NP [address] [place] [address] PCP - [place] [employer] 08/24/24 Unallocated, Noms Mariaelena, [address] [place] [address] PCP - General Family Medicine 10/14/24 Domi Altamirano NP Nurse Practitioner Family Medicine 03/26/22 10/13/24 Domi Altamirano NP Nurse Practitioner Family Medicine 07/26/23 10/13/24 documented as of this encounter
--- OUTSIDE RECORDS SUMMARY | 2024-12-16 14:17 | XMS_ITS | Clinical Summary ---
Demographics Address [address] [facility] [address] [place] [address] Home Phone Email Address Preferred Language en Marital Status Zoroastrianism Affiliation Unknown Race White Ethnic Group Not or Lati no Author Organization [facility] Address [address] [place] [address] Care Team Providers Care Sales Executive Name Role Phone Nakul Swenson MD Primary Care Provider [phone] Allergies Active Allergy Reactions Criticality Noted Date Comments Erythromycin Unknown 02/28/2017 Latex Hives,Unknown 02/21/2023 Methylprednisolone Unknown 02/21/2023 Methylprednisolone Sodium Succ Anaphylaxis High 08/2016 Tramadol Unknown 07/26/2023 Medications metoprolol succinate XL (Toprol-XL) 100 mg 24 hr tabletIndicatio ns:Tachycardia Take 1 tablet (100 mg) by mouth once daily as directed. Do not crush or chew. 90 tablet 1 5 06/01/19 26 Active albuterol 2.5 mg /3 mL (0.083 %) nebulizer solution Inhale 2.5 mg every 6 (six) hours if needed. Active albuterol 90 mcg/actuation inhaler Inhale every 6 (six) hours if needed. Active atorvastatin (Lipitor) 20 mg tablet Take 20 mg by mouth at bedtime. Active Farxiga 10 mg Take 1 tablet by mouth in the morning. 5 Active hydroxyurea (Hydrea) 500 mg capsule Take 500 mg by mouth in the morning 5 Active promethazine (Phenergan) 25 mg tablet Take 25 mg by mouth if needed. Active azelastine (Astelin) 137 mcg (0.1 %) nasal spray Administer 2 sprays into each nostril two times daily. Active baclofen (Lioresal) 20 mg tablet Take 20 mg by mouth if needed. 1 Active cetirizine (ZyrTEC) 10 mg tablet Take 10 mg by mouth in the morning. 1 Active Vitamin B-12 1,000 mcg tablet Take 1,000 mcg by mouth in the morning. 5 Active gabapentin (Neurontin) 600 mg tablet Take 1 tablet by mouth every 6 (six) hours during the day. 5 Active oxyCODONE (Roxicodone) 5 mg immediate release tablet Take 5 mg by mouth every 4 (four) hours if needed. 5 Active potassium chloride CR (K-Tab) 20 mEq ER tablet Take 20 mEq by mouth two times daily. Active losartan (Cozaar) 50 mg tablet Take 50 mg by mouth in the morning. Active Active Problems Problem Noted Date Diagnosed Date Chronic systolic heart failure 12/07/2024 Cardiomyopathy 12/07/2024 Sinus tachycardia 12/07/2024 Nonrheumatic mitral valve regurgitation 12/08/19 Anemia 12/04/2024 Congestive heart failure 12/04/2024 Depressive disorder 12/04/2024 Diabetes mellitus 12/04/2024 Hypertension 12/04/2024 Injury of head 12/04/2024 Malignant neoplasm of cervix 12/04/2024 Alcoholism in remission 04/14/2024 Recurrent major depressive disorder, in remissio n 04/14/2024 Colon cancer screening 09/18/2023 Environmental and seasonal allergies 09/18/2023 Heart palpitations 08/05/2023 Microscopic hematuria 08/05/2023 Mixed hyperlipidemia 07/27/[address] of the chest 07/26/2023 Anxiety 07/26/2023 Arthritis 07/26/2023 Asthma 07/26/2023 Bipolar affective disorder in remission 07/26/19 Centrilobular emphysema 07/26/2023 Cervical spinal stenosis 07/26/2023 Chronic pain syndrome 07/26/2023 Current smoker 07/26/2023 Overview (12/04/2024): Added secondary to documentation in Social History. Type 2 diabetes mellitus 07/26/2023 Essential hypertension, benign 07/26/2023 Gastroesophageal reflux disease without esophagi tis 07/26/2023 Heart murmur 07/26/2023 Hiatal hernia 07/26/2023 Lung nodule 07/26/2023 Mediastinal adenopathy 07/26/2023 Urethral stricture 07/26/2023 Vitamin B 12 deficiency 07/26/2023 Vitamin D deficiency 07/26/2023 Encounters Date Type Department Care Team Description 12/08/2024 Abstract [facility] [address] [place] [address] Dorene Catherine MD 12/05/2024 3:40 PM EDT Office Visit [facility] [address] [facility] [place] [address] Ashlee Hoskins MD Chronic systolic heart failure (CMS/HCC) (Primary Dx); Cardiomyopathy, unspecified type (CMS/HCC); Sinus tachycardia; Nonrheumatic mitral valve regurgitation; Essential hypertension, benign; Type 2 diabetes mellitus without complication, without long-term current use of insulin (CMS/HCC); Mixed hyperlipidemia; 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); Current smoker 12/02/[address] [address] Lina Mi MA Tachycardia (Primary Dx) from Last 3 Months Family History Medical History Relation Name Comments Cancer Father Diabetic kidney disease Mother Hypertension Mother stoke Mother Relation Name Status Comments Father Mother Alive Social History Tobacco Use Types Packs/Day Years [...] Heterosexual or Straight 11/24 2:11 PM EDT Last Filed Vital Signs Vital Sign Reading [...] Mass Index 15.01 12/05/2024 4:47 PM EDT Plan of Treatment Upcoming Encounters Date Type Department Care Team (Late st Contact Info) Description 01/21/2025 8:00 AM EDT Appointment [facility] Imaging [address] [place] [address] Health Maintenance Due Date Last Done Comments CT Colonography 1975 Colonoscopy 1975 Diabetes: Hemoglobin A1C 1975 FOBT 1975 Sigmoidoscopy 1975 Diabetes: Retinopathy Screening 08/23/1985 Depression Screening 1987 Diabetes: Urine Protein Screening 08/23/1994 Hepatitis B Vaccines (1 of 3 - 19+ 3-dose series) 08/23/1994 Pneumococcal Vaccine: Pediat rics (0 to 5 Years) and At-Risk Patients (6 to 64 Years) (1 of 2 - PCV) 08/23/1994 Pap Smear 08/23/1996 Adult Tetanus 08/23/1997 Cervical Cancer Screening 08/23/2005 HPV/Cotest 08/23/2005 Mammogram 2015 FIT 10/08/2024 10/09/2023 COVID-19 Vaccine (1 - 2023-2 5 season) 2024 Influenza Vaccine (#1) 2024 Zoster Vaccines (1 of 2) 08/23/2025 Colorectal Cancer Screening 10/08/2026 FIT-DNA 10/08/2026 10/09/2023 HIB Vaccines Aged Out No longer eligi ble based on patient's age to complete this topic HPV Vaccines Aged Out No longer eligi ble based on patient's age to complete this topic IPV Vaccines Aged Out No longer eligi ble based on patient's age to complete this topic Meningococcal B Vaccine Aged Out No l onger eligible based on patient's age to complete this topic Meningococcal Vaccine Aged Out No kim kevin eligible based on patient's age to complete this topic Rotavirus Vaccines Aged Out No longer eligible based on patient's age to complete this topic Procedures Procedure Name Priority Date/Time Associated Diagnosis Comments ECG 12-LEAD Routine 12/05/2024 6:13 PM EDT Cardiomyopathy, unspecified type (CMS/HCC) from Last 3 Months Results * ECG 12 lead (12/05/2024 6:13 PM EDT) Ashlee Alvarez MD - 12/05/2024 6:13 PM EDT sinus tachycardia 136 bpm, otherwise normal EKG Ashlee Hoskins MD ECG ORDERABLES Final Result from Last 3 Months Insurance * Guarantor: Rylee Merrill Account Type Relation to Patient Date of Phone Billing Address Personal/Family Self 1975 [address] [facility] [address] [place] [address] [facility] Care Teams Sales Executive Relationship Specialty Start Date End Date Nakul Swenson MD [address] [facility] [address] [address] PCP - General Family Medicine 12/01/24
--- OUTSIDE RECORDS SUMMARY | 2024-12-16 14:17 | XMS_ITS | Encounter Summary ---
Demographics Address [address] [facility] [address] [place] [address] Mobile Phone Home Phone Work Phone Email Address Preferred Language en Marital Status Anglican Affiliation Unknown Race White Ethnic Group Not or Lati no Author Organization [facility] Address [address] [place] [address] Care Team Providers Care Varnish Thinner Name Role Phone Domi Altamirano NP Unavailable [phone] Hiren Horton MD Primary Care Provider Domi Altamirano [employer] Unavailable [phone] Domi Altamirano NP Unavailable [phone] Unallocated, Noms Provider Primary Care Provi taylor Encounter Details Date Type Department Care Team (Late st Contact Info) Description 09/22/2024 Abstract [facility] [address] [place] [address] Domi Altamirano, SALES ASSOC [address] [place] [address] Social History Tobacco Use Types Packs/Day Years [...] declined 10/08/2023 How often do you attend moravian or christianity serv ices? Never 10/08/2023 Do you belong to any clubs o r organizations such as moravian groups, unions, fraternal or athletic groups, or [...] medical care, and heating? Very hard 10/08/2023 [facility] [place] of Occupat ional Health - Occupational Stress [...] on filedocumented in this encounter Care Teams Varnish Thinner Relationship Specialty Start Date End Date Hiren Horton MD PCP - General Family Medicine 07/26/23 10/13/24 Domi Altamirano NP [address] [place] [address] PCP - [employer] 08/24/24 Unallocated, Noms Provider, [address] [place] [address] PCP - General Family Medicine 10/14/24 Domi Altamirano NP Nurse Practitioner Family Medicine 03/26/22 10/13/24 Domi Altamirano NP Nurse Practitioner Family Medicine 07/26/23 10/13/24 documented as of this encounter
--- OUTSIDE RECORDS SUMMARY | 2024-12-16 14:17 | XMS_ITS | Encounter Summary ---
Demographics Address [address] [facility] [address] [place] [address] Mobile Phone Home Phone Email Address Preferred Language ENG Marital Status Single Cheondoism Affiliation Unknown Race White Ethnic Group Not or Lati no Author Organization [facility] Address [address] [place] [address] Care Team Providers Care Dry Plasterer Name Role Phone Lizzette Malik CNP Primary Care Provider [phone] Domi Altamirano SALES OFFICE COORDINATOR Unavailable [phone] Source Comments In the event this information is protected by the Federal Confidentiality of Alcohol and Drug AbusePatient Records regulations: The Federal rules restrict any use of the information to criminally investigate or prosecute any alcohol or drug abuse patient.[facility] Encounter Details Date Type Department Care Team (Late st Contact Info) Description 12/08/2024 Patient Update Hematology/Oncology [address] [place] [address] Self Social History Tobacco Use Types Packs/Day Years [...] on filedocumented in this encounter Care Teams Dry Plasterer Relationship Specialty Start Date End Date Lizzette Malik CNP PCP - General Family Medicine 12/04/14 Domi Altamirano CNP Referring Family Medicine 10/14/21 documented as of this encounter
--- OUTSIDE RECORDS SUMMARY | 2024-12-16 14:18 | XMS_ITS | Encounter Summary ---
Demographics Address [address] [facility] [address] [place] [address] Mobile Phone Home Phone Work Phone Email Address Preferred Language en Marital Status Zoroastrianism Affiliation Unknown Race White Ethnic Group Not or Lati no Author Organization [facility] Address [address] [place] [address] Care Team Providers Care Donor Recruiter Name Role Phone Domi Altamirano NP Unavailable [phone] Hiren Horton MD Primary Care Provider Domi Altamirano ACADEMIC SUPPORT CENTER DIRECTOR Unavailable [phone] Domi Altamirano NP Unavailable [phone] Unallocated, Noms Provider Primary Care Provi taylor Encounter Details Date Type Department Care Team (Late st Contact Info) Description 12/17/2023 Orders Only [facility] [address] [place] [address] Domi Altamirano, ACADEMIC SUPPORT CENTER DIRECTOR [address] [facility] [address] Social History Tobacco Use Types Packs/Day Years [...] How often do you attend latter-day or anglican serv ices? Never 10/08/2023 Do [...] medical care, and heating? Very hard 10/08/2023 [facility] [place] of Occupat ional Health - Occupational Stress [...] any time in the past 12 m [facility], were you homeless or living in [...] on filedocumented in this encounter Care Teams Donor Recruiter Relationship Specialty Start Date End Date Hiren Horton MD PCP - General Family Medicine 07/26/23 10/13/24 Domi Altamirano NP [address] [place] [address] [facility] 08/24/24 Unallocated, Noms Provider, [place] [address] PCP - General Family Medicine 10/14/24 Domi Altamirano NP Nurse Practitioner Family Medicine 03/26/22 10/13/24 Domi Altamirano NP Nurse Practitioner Family Medicine 07/26/23 10/13/24 documented as of this encounter
--- OUTSIDE RECORDS SUMMARY | 2024-12-16 14:18 | XMS_ITS | Encounter Summary ---
Demographics Address [address] [facility] [address] [place] [address] Mobile Phone Home Phone Work Phone Email Address Preferred Language en Marital Status Pentecostal Affiliation Unknown Race White Ethnic Group Not or Lati no Author Organization [facility] Address [address] [facility] [place] [address] Care Team Providers Care Pcas Name Role Phone Domi Altamirano SENIOR OFFICE SUPPORT ASSISTANT SOSA Unavailable [phone] Hiren Horton MD Primary Care Provider [phone] Domi Altamirano SENIOR OFFICE SUPPORT ASSISTANT SOSA Unavailable [phone] Domi Altamirano NP Unavailable [phone] Unallocated, Noms Provider Primary Care Provi taylor Encounter Details Date Type Department Care Team (Late st Contact Info) Description 12/31/2023 Orders Only [facility] [address] [facility] [place] [address] Abran West MD [address] [place], [place] [address] Social History Tobacco Use Types Packs/Day Years [...] How often do you attend druze or mormonism serv ices? Never 10/08/2023 Do [...] medical care, and heating? Very hard 10/08/2023 [facility] of Occupat ional Health [...] any time in the past 12 m [facility], were you homeless or living [...] on filedocumented in this encounter Care Teams Pcas Relationship Specialty Start Date End Date Hiren Horton MD PCP - General Family Medicine 07/26/23 10/13/24 Domi Altamirano NP [address] [place] [address] PCP - [employer] 08/24/24 Unallocated, Noms [place] [address] PCP - General Family Medicine 10/14/24 Domi Altamirano NP Nurse Practitioner Family Medicine 03/26/22 10/13/24 Domi Altamirano NP Nurse Practitioner Family Medicine 07/26/23 10/13/24 documented as of this encounter
--- OUTSIDE RECORDS SUMMARY | 2024-12-16 14:18 | XMS_ITS | Encounter Summary ---
Demographics Address [address] [facility] [address] [place] [address] Mobile Phone Home Phone Work Phone Email Address Preferred Language en Marital Status Faith Affiliation Unknown Race White Ethnic Group Not or Lati no Author Organization [facility] Address [address] [place] [address] Care Team Providers Care Window Shade Cutter Name Role Phone Domi Altamirano NP Unavailable [phone] Hiren Horton MD Primary Care Provider Domi Altamirano ENTRY TABLE OPERATOR Unavailable [phone] Domi Altamirano NP Unavailable [phone] Unallocated, Noms Provider Primary Care Provi taylor Encounter Details Date Type Department Care Team (Late st Contact Info) Description 01/10/2024 Abstract [facility] [address] [place] [address] Domi Altamirano, ENTRY TABLE OPERATOR [address] [facility] [place] [address] Social History Tobacco Use Types Packs/Day Years [...] How often do you attend jewish or jewish serv ices? Never 10/08/2023 Do you belong [...] and heating? Very hard 10/08/2023 [facility] of Occupat ional Health - Occupational Stress [...] any time in the past 12 m [facility], were you homeless or living in a [...] on filedocumented in this encounter Care Teams Window Shade Cutter Relationship Specialty Start Date End Date Hiren Horton MD PCP - General Family Medicine 07/26/23 10/13/24 Domi Altamirano NP [address] [place] [address] PCP - [place] [employer] 08/24/24 Unallocated, Noms Provider, [address] [place] [address] PCP - General Family Medicine 10/14/24 Domi Altamirano NP Nurse Practitioner Family Medicine 03/26/22 10/13/24 Domi Altamirano NP Nurse Practitioner Family Medicine 07/26/23 10/13/24 documented as of this encounter
--- OUTSIDE RECORDS SUMMARY | 2024-12-16 14:18 | XMS_ITS | Encounter Summary ---
Demographics Address [address] [place] [address] Mobile Phone Home Phone Work Phone Email Address Preferred Language en Marital Status Yazidism Affiliation Unknown Race White Ethnic Group Not or Lati no Author Organization [facility] Address [address] [facility] [place] [address] Care Team Providers Care Slide Fastener Repairer Name Role Phone Domi Altamirano NP Unavailable [phone] Hiren Horton MD Primary Care Provider Domi Altamirano NP Unavailable [phone] Domi Altamirano NP Unavailable [phone] Unallocated, Noms Provider Primary Care Provi taylor Encounter Details Date Type Department Care Team (Late st Contact Info) Description 10/09/2023 Orders Only [facility] [address] [place] [address] Domi Munroe MD [address] [place], [place] [address] Social History Tobacco Use Types Packs/Day Years [...] How often do you attend orthodoxy or methodist serv ices? Never 10/08/2023 Do you belong [...] medical care, and heating? Very hard 10/08/2023 [facility] of Occupat ional Health - [...] on filedocumented in this encounter Care Teams Slide Fastener Repairer Relationship Specialty Start Date End Date Hiren Horton MD PCP - General Family Medicine 07/26/23 10/13/24 Domi Altamirano NP [address] [place] [address] PCP - [place] [employer] 08/24/24 Unallocated, Noms [place] [address] PCP - General Family Medicine 10/14/24 Domi Altamirano NP Nurse Practitioner Family Medicine 03/26/22 10/13/24 Domi Altamirano NP Nurse Practitioner Family Medicine 07/26/23 10/13/24 documented as of this encounter
--- OUTSIDE RECORDS SUMMARY | 2024-12-16 14:18 | XMS_ITS | Encounter Summary ---
Demographics Address [address] [facility] [address] [place] [address] Mobile Phone Home Phone Work Phone Email Address Preferred Language en Marital Status Sikh Affiliation Unknown Race White Ethnic Group Not or Lati no Author Organization [facility] Address [address] [place] [address] Care Team Providers Care Special Education Supervisor Name Role Phone Domi Altamirano NP Unavailable [phone] Hiren Horton MD Primary Care Provider [phone] Domi Altamirano DIAMOND FINISHING SUPERVISOR Unavailable [phone] Domi Altamirano NP Unavailable [phone] Unallocated, Noms Provider Primary Care Provi taylor Encounter Details Date Type Department Care Team (Late st Contact Info) Description 12/18/2023 Orders Only [facility] [address] [place] [address] Domi Altamirano, DIAMOND FINISHING SUPERVISOR [address] [facility] [place] [address] Social History Tobacco Use Types Packs/Day Years [...] declined 10/08/2023 How often do you attend pentecostal or yazdanism serv ices? Never 10/08/2023 Do you belong to any clubs o r organizations such as pentecostal groups, unions, fraternal or athletic groups, or [...] medical care, and heating? Very hard 10/08/2023 [facility] [place] of Occupat ional Health - Occupational Stress [...] on filedocumented in this encounter Care Teams Special Education Supervisor Relationship Specialty Start Date End Date Hiren Horton MD PCP - General Family Medicine 07/26/23 10/13/24 Domi Altamirano NP [address] [place] [address] PCP - [place] [employer] 08/24/24 Unallocated, Noms MD Mariaelena [address] [place] [address] PCP - General Family Medicine 10/14/24 Domi Altamirano NP Nurse Practitioner Family Medicine 03/26/22 10/13/24 Domi Altamirano NP Nurse Practitioner Family Medicine 07/26/23 10/13/24 documented as of this encounter
--- OUTSIDE RECORDS SUMMARY | 2024-12-16 14:18 | XMS_ITS | Encounter Summary ---
Demographics Address [address] [place] [address] Mobile Phone Home Phone Work Phone Email Address Preferred Language en Marital Status Zoroastrianism Affiliation Unknown Race White Ethnic Group Not or Lati no Author Organization [facility] Address [address] [place] [address] Care Team Providers Care Lockstitch Front Edge Tape Sewer Name Role Phone Domi Altamirano NP Unavailable [phone] Hiren Horton MD Primary Care Provider [phone] Domi Altamirano NP Unavailable [phone] Domi Altamirano NP Unavailable [phone] Unallocated, Noms Provider Primary Care Provi taylor Encounter Details Date Type Department Care Team (Late st Contact Info) Description 09/25/2023 Clinisync Result Encounter [facility] External Department Unsolicited Domi Altamirano PIPELAYING FITTER [address] [place] [address] Social History Tobacco Use Types Packs/Day Years [...] EDT Narrative 09/25/2023 3:20 [place] [address] Mammography Report Signed Patient: JAIME MERRILL MR#: [id number] : 1975 Acct:[id number] Age/Sex: 48 / F ADM Date: 09/24/23 Loc: MAMMO Attending Dr: Domi Altamirano NP Ordering Physician: Domi Altamirano NP Results: Date of Service: 09/24/23 Follow Up: Procedure(s): MM tomosynthesis screening BI Accession Number(s): [id number] cc: Domi Altamirano NP Patient Name: JAIME MERRILL MR#: [id number] : 1975 Exam Date: 09/24/2023 Ordering Doctor: [...] Signed By: 09/25/23 1520 DD/ 1519 TD/TT: Dedicated Driver: Procedure Note Radiology, Radiologist, MD - 09/25/2023 [place] [address] Mammography Report Signed Patient: JAIME MERRILL KMR#: [id number] : 1975Acct:[id number] Age/Sex: 48 / FADM Date: 09/24/23 Loc: MAMMO Attending Dr: Domi Altamirano PIPELAYING FITTER Ordering Physician: Domi Altamirano NPResults: Date of Service: 09/24/23Follow Up: Procedure(s): MM tomosynthesis screening BI Accession Number(s): [id number] cc: Domi Altamirano PIPELAYING FITTER Patient Name: JAIME MERRILL MR#: [id number] : 1975 Exam Date: 09/24/2023 Ordering Doctor: ARELY ALTAMIRANO MARKET RISK SPECIALIST RADIOLOGY REPORT PROCEDURE: MM TOMOSYNTHESIS SCREENING BI [...] M.D. Signed By:09/25/23 1520 DD/ 1519 TD/TT: Dedicated Driver: Domi Altamirano NP [facility] Final Result documented in this encounter Visit Diagnoses Not on filedocumented in this encounter Care Teams Lockstitch Front Edge Tape Sewer Relationship Specialty Start Date End Date Hiren Horton MD PCP - General Family Medicine 07/26/23 10/13/24 Domi Altamirano NP [address] [place] [address] PCP - [facility] 08/24/24 Unallocated, Noms Provider, [address] [place] [address] PCP - General Family Medicine 10/14/24 Domi Altamirano NP Nurse Practitioner Family Medicine 03/26/22 10/13/24 Domi Altamirano NP Nurse Practitioner Family Medicine 07/26/23 10/13/24 documented as of this encounter
--- OUTSIDE RECORDS SUMMARY | 2024-12-16 14:18 | XMS_ITS | Clinical Summary ---
Demographics Address [address] [place] [address] Mobile Phone Home Phone Work Phone Email Address Preferred Language en Marital Status Sikh Affiliation Unknown Race White Ethnic Group Not or Lati no Author Organization [facility] Address [address] [place] [address] Care Team Providers Care Acoustical Tile Carpenters Supervisor Name Role Phone Domi Altamirano MIGUEL A Unavailable [phone] Unallocated, Noms Provider Primary Care Provi taylor Allergies Active Allergy Reactions Criticality Noted Date Comments Erythromycin Unknown 02/21/2023 Latex Unknown 02/21/2023 Methylprednisolone Unknown 02/21/2023 Methylprednisolone Sodium Succ Anaphylaxis High 12/0 08/2016 Tramadol 07/26/2023 Ghltjfaviox-Iundgvrbk-Gulfzw Shortness of breath High 02/21/2023 Medications cetirizine [...] 07/22/2024 Bronchitis 12/11/2023 04/14/2024 Overview (01/10/2024): [facility] [id number] Exp: 03/25/24 Lot # [id number] Assessment & Plan (01/10/2024 1:18 PM EDT): No wheezing noted, multiple allergies and has been on z pack as well as doxy and steroids Will order health trax Possible allergy trigger?? Samples of vandana 180mg 1 po daily, and #2 samples Lot [id number], exp 08/18 Airsupra sample #1; [id number], exp 04/2024 Astepro allergy nasal spray 2 [...] AM EDT): Tremayne samples X3 given Lot: [id number], exp 12/18 Assessment & Plan (10/15/2023 7:48 [...] Abstract [facility] [address] [place] [address] Domi Altamirano, CONVEYOR MONITOR 09/22/2024 Abstract [facility] [address] [place] [address] Domi Altamirano, CONVEYOR MONITOR 09/22/2024 Orders Only [facility] [address] [place] [address] Nakul Swenson MD 09/22/2024 Abstract [facility] [address] [place] [address] Domi Altamirano, MIGUEL A 09/18/2024 Clinisync Result Encounter [facility] External Department Unsolicited Provider, Generic External Data 09/18/2024 Abstract [facility] [address] [place] [address] Domi Altamirano, MIGUEL A 09/17/2024 Abstract [facility] [address] [place] [address] Doim Altamirano, MIGUEL A 09/17/2024 Orders [facility] [address] [place] [address] Li Ku MD 09/17/2024 Abstract [facility] [address] [place] [address] Domi Altamirano NP 09/16/2024 Abstract [facility] [address] [place] [address] Domi Altamirano NP 09/16/2024 Orders Only [facility] [address] [place] [address] Domi Altamirano NP 09/16/2024 Abstract [facility] [address] [place] [address] Domi Altamirano NP 09/16/2024 Clinisync Result Encounter [...] How often do you attend moravian or anabaptist serv ices? Never 10/08/2023 Do [...] medical care, and heating? Very hard 10/08/2023 [facility] Rector of Occupat ional Health - Occupational Stress [...] any time in the past 12 m [facility], were you homeless or living in [...] 1975 FIT 1975 FOBT 1975 Sigmoidoscopy 1975 Diabetes: Urine Protein Screening 07/25/2024 024 Mammogram 09/24/2024 09/25/2023, 04/2023, 06/03/2021 Diabetes: Hemoglobin A1C 01/21/2025 07/22/2024, 05/0 04/2023 Diabetes: Retinopathy Screening 09/24/2025 Pap Smear 10/02/2026 10/03/2023, 05/03/2021 Colorectal Cancer Screening 10/08/2026 FIT-DNA 10/08/2026 10/09/2023 Cervical Cancer Screening 10/02/2028 HPV/Cotest 10/02/2028 10/03/2023 Influenza Vaccine Discontinued Procedures Procedure Name Priority Date/Time Associated Diagnosis Comments FIBRINOGEN ACTIVITY, CLAUSS Routine 10/15/2024 5:53 AM EDT PROTEIN ELECTRO, RANDOM URINE Routine 10/14/2024 5:00 PM EDT IMMUNOFIXATION,SERUM ([facility]) Routine 10/14/2024 12:20 PM EDT [facility] PANEL [...] * (ABNORMAL) Fibrinogen (10/15/2024 5:53 AM EDT) [facility] FIBRINOGEN 945(H) 200 - 393 mg/dL 10/15/2024 7:20 AM EDT [facility] Comment: A hematocrit value greater than 55% may lead to inaccurate results in coagulation testing. Patients having hematocrit values >55% require a special collection tube for coagulation studies. Please contact the laboratory at [phone] for redraw instructions. Other Topography unknown / Unknown 10/15/2024 5:53 AM EDT 10/15/2024 6:15 AM EDT Jose M Mercedes DO LAB BLOOD ORDERABLES Chloe l Result [facility] [address] [place] [address], [facility] [address] [place] [address] * PROTEIN ELECTRO, RANDOM URINE (10/14/2024 5:00 PM EDT) Pathologist [facility] [place] PROTEIN, TOTAL, URINE 19.9 Not Estab. mg/dL 10/18/2024 4:08 PM EDT [facility] ALBUMIN, URINE 6.9 . % 10/18/2024 4:08 PM EDT [facility] LGKSS-3-XEFFMJPV, URINE 2.9 . % 10/18/2024 4:08 PM EDT [facility] HRARZ-5-CEVASHVJ, URINE 33.9 . % 10/18/2024 4:08 PM EDT [facility] BETA GLOBULIN, URINE 29.0 . % 10/18/2024 4:08 PM EDT [facility] GAMMA GLOBULIN, URINE 27.3 . % 10/18/2024 4:08 PM EDT [facility] M-SPIKE % 5.0 Not Observed % 10/18/2024 4:08 PM EDT [facility] Comment:Alpha 2 and beta reg ions appear asymmetrical. PLEASE NOTE: Comment . 10/18/2024 4:08 PM EDT [facility] Comment: Protein electrophoresis scan will follow via computer, mail, or wafer polisher delivery. Performed at: [address] [id number] Client Advocate: Abel Finnegan PhD, Phone: [phone] Other 10/14/2024 5:00 PM EDT 10/14/2024 5:08 PM EDT Jose M Mercedes DO LAB BLOOD ORDERABLES Chloe l Result [place] [address] [place] [address], * [facility] PANEL TO NEOGENOMIC (10/14/2024 12:20 PM EDT) [facility] PANEL TO NEOGENOMIC 10/16/2024 8:38 AM EDT [facility] Comment:See report. Scanned copy available in EMR. Other Topography unknown / Unknown 10/14/2024 12:20 PM EDT 10/14/2024 12:30 PM EDT Jose M Mercedes DO LAB BLOOD ORDERABLES Chloe l Result Performing Organization Address City/[facility]/ZIP Co de Phone Number [facility] [address] [place] [address], [facility] [address] [place] [phone] * FREE K+L LT CHAINS, QN, S (10/14/2024 12:20 PM EDT) [facility] FREE KAPPA LIGHT CHAINS, S 66.0 3.3 - 19.4 mg/L 10/15/2024 2:36 PM EDT [facility] FREE LAMBDA LIGHT CHAINS, S 63.7 5.7 - 26.3 mg/L 10/15/2024 2:36 PM EDT [facility] KAPPA/LAMBDA RATIO, S 1.04 0.26 - 1.65 10/15/2024 2:36 PM EDT [facility] Comment: Performed at: [address] [id number] Client Advocate: Abel Finnegan PhD, Phone: [phone] Other Topography unknown / Unknown 10/14/2024 12:20 PM EDT 10/14/2024 12:30 PM EDT Narrative [facility] - 10/16/2024 4:08 PM EDT OK TO DO IN THE AM FOR MORNING ROUNDS, PER SOPHIE DAVIS, BARBIE.@ ISAAC DATE was changed from 10/14/24 to 10/15/24 Jose M Mercedes DO LAB BLOOD ORDERABLES Chloe l Result [facility] [address] [place] [address], * IMMUNOFIXATION,SERUM ([facility]) (10/14/2024 12:20 PM EDT) [facility] IMMUNOFIXATION, SERUM Comment: . 10/16/2024 4:08 PM EDT [facility] Comment: Presence of monoclonal protein is unclear at this time. Suggest repeat in 3 to 6 months if clinically indicated. IMMUNOGLOBULIN G 980 586 - 1,602 mg/dL 10/16/2024 4:08 PM EDT [facility] IMMUNOGLOBULIN A, SERUM 397 87 - 352 mg/dL 10/16/2024 4:08 PM EDT [facility] IMMUNOGLOBULIN M, SERUM 166 26 - 217 mg/dL 10/16/2024 4:08 PM EDT [facility] Comment: Performed at: - [facility] [id number] Client Advocate: Abel Finnegan PhD, Phone: [phone] Other Topography unknown / Unknown 10/14/2024 12:20 PM EDT 10/14/2024 12:30 PM EDT Thor [facility] - 10/16/2024 4:08 PM EDT OK TO DO IN THE AM FOR MORNING ROUNDS, PER SOPHIE DAVIS, PLS.@ [facility] DATE was changed from 10/14/24 to 10/15/24 us Jose M Mercedes DO LAB BLOOD ORDERABLES Chloe bauman Result [facility] [address] [place] [address], * Protein electrophoresis, serum (10/14/2024 12:20 PM EDT) [facility] TOTAL PROTEIN, SERUM 6.3 6.0 - 8.5 g/dL 10/15/2024 1:08 PM EDT [facility] ALBUMIN, SERUM 1.8 2.9 - 4.4 g/dL 10/15/2024 1:08 PM EDT [facility] YBCDV-4-JSBYXRUW 0.8 0.0 - 0.4 g/dL 10/15/2024 1:08 PM EDT [facility] AZBNN-6-VXZIHKOE 1.6 0.4 - 1.0 g/dL 10/15/2024 1:08 PM EDT [facility] BETA GLOBULIN 1.1 0.7 - 1.3 g/dL 10/15/2024 1:08 PM EDT [facility] GAMMA GLOBULIN 1.0 0.4 - 1.8 g/dL 10/15/2024 1:08 PM EDT [facility] M-SPIKE Comment: Not Observed g/dL 10/15/2024 1:08 PM EDT [facility] Comment: SPE shows asymmetrical beta. Suggest serum BIRDIE and free light chain analysis for further evaluation. GLOBULIN, TOTAL 4.5 2.2 - 3.9 g/dL 10/15/2024 1:08 PM EDT [facility] A/G RATIO 0.4 0.7 - 1.7 10/15/2024 1:08 PM EDT [facility] SPE-NOTE Comment . 10/15/2024 1:08 PM EDT [facility] Comment: Protein electrophoresis scan will follow via computer, mail, or wafer polisher delivery. Performed at: [address] [id number] Client Advocate: Abel Finnegan PhD, Phone: [phone] Other Topography unknown / Unknown 10/14/2024 12:20 PM EDT 10/14/2024 12:30 PM EDT Narrative [facility] - 10/16/2024 4:08 PM EDT OK TO DO IN THE AM FOR MORNING ROUNDS, PER SOPHIE DAVIS, BARBIE.@ [facility] DATE was changed from 10/14/24 to 10/15/24 Jose M Mercedes DO LAB BLOOD ORDERABLES Chloe l Result Performing Organization Address City/[facility]/ZIP Co de Phone Number [facility] [address] [place] [address], * (ABNORMAL) Haptoglobin (10/14/2024 12:20 PM EDT) HAPTOGLOBIN >400(H) 44 - 215 mg/dL 10/14/2024 1:34 PM EDT [facility] Other Topography unknown / Unknown 10/14/2024 12:20 PM EDT 10/14/2024 12:30 PM EDT Jose M Mercedes DO LAB BLOOD ORDERABLES Chloe l Result [facility] [address] [place] [address], [facility] [address] [place] [address] * RETICULOCYTE PCT AUTO (09/30/2024 8:42 AM [...] ALL SED RATE (09/30/2024 8:42 AM EDT) [facility] SED RATE >130(H) <=20 mm/hr [facility] 09/30/2024 8:42 AM EDT 09/30/2024 8:49 AM EDT Narrative [facility] - 09/30/2024 9:05 AM EDT Generic External Data Provider [facility] F inal Result Performing Organization Address [facility]/ZIP Co de Phone Number [facility] * (ABNORMAL) ALL CBC WITH AUTO DIFF (09/30/2024 8:42 AM EDT) [facility] WBC 25.4(H) 4.0 - 11.0 10 3/uL TBH TBH RBC 3.57(L) 4.20 - 5.40 10 6/uL TBH TBH HGB 9.0(L) 12.0 - 16.0 g/dL TBH TBH HCT 29.2(L) 36.0 - 48.0 % TBH TBH MCV 81.8 81.0 - 99.0 fL TBH TBH MCH 25.2(L) 26.7 - 34.0 pg TBH TB MCHC 30.8 29.9 - 35.2 g/dL TBH TBH RDW 22.0(H) 11.0 - 15.0 % TBH TBH PLT 1,006(HH) 150 - 450 10 3/uL [facility] Comment:RESULTS CALLED TO TIERRA MATTA RN at 0930 [facility] MPV 8.5(L) 9.5 - 13.5 fL TBH 09/30/2024 8:42 AM EDT 09/30/2024 8:49 AM EDT Narrative [facility] - 09/30/2024 9:47 AM EDT Generic External Data Provider [facility] F inal Result Performing Organization Address [facility]/ZIP Co de Phone Number [facility] * CT ABDOMEN/PELVIS WITH CONTRAST (09/22/2024 [...] AT 5 DAYS.^NO GROWTH AT 5 DAYS. [facility] 09/18/2024 1:30 PM EDT 09/18/2024 1:37 PM EDT Narrative [facility] - 09/23/2024 3:26 PM EDT PEDS BOTTLE Generic External Data Provider LAB BLOOD ORDERAB LES Final Result Performing Organization Address City/[facility]/ZIP Co de Phone Number [facility] * BLOOD CULTURE 1 (09/18/2024 1:22 PM EDT) BLOOD CULTURE 1 Blood Culture 1 NG5D NO GROWTH AT 5 DAYS.^NO GROWTH AT 5 DAYS. [facility] 09/18/2024 1:22 PM EDT 09/18/2024 1:36 PM EDT Narrative [facility] - 09/23/2024 3:25 PM EDT PEDS BOTTLE Generic External Data Provider LAB BLOOD ORDERAB LES Final Result [facility] * LOWER RESPIRATORY CULTURE (09/18/2024 9:53 AM EDT) LOWER RESPIRATORY CULTURE Lower Respiratory Culture WILL FOLLOW [facility] LOWER RESPIRATORY CULTURE Routine respiratory luke [facility] LOWER RESPIRATORY CULTURE [facility]: [facility]IR[facility] CULT[facility] [address] [place], [place] [id number] [facility] LOWER RESPIRATORY CULTURE Client Advocate: Abel Finnegan PhD, Phone: [phone] 09/18/2024 9:53 AM EDT 09/18/2024 10:37 AM EDT Narrative [facility] - 09/21/2024 9:07 PM EDT us Generic External Data Provider LAB BLOOD ORDERAB LES Final Result Performing Organization Address [facility] Co de Phone Number [facility] * GRAM STAIN EVALUATION (09/18/2024 9:53 AM EDT) GRAM STAIN EVALUATION Gram Stain Evaluation This specimen is of good quality and is acceptable for routine [facility] GRAM STAIN EVALUATION bacterial culture. [facility] 09/18/2024 9:53 AM EDT 09/18/2024 10:37 AM EDT Narrative [facility] - 09/21/2024 9:07 PM EDT us Generic External Data Provider LAB BLOOD ORDERAB LES Final Result Performing Organization Address [facility]/ZIP Co de Phone Number [facility] * RESULT 4 (09/18/2024 9:53 AM EDT) RESULT 4 Result 4 CONVEYOR MONITOR TB 09/18/2024 9:53 AM EDT 09/18/2024 10:37 AM EDT Narrative [facility] - 09/21/2024 9:07 PM EDT us Generic External Data Provider LAB BLOOD ORDERAB LES Final Result Performing Organization Address [facility]/ZIP Co de Phone Number [facility] * RESULT 3 (09/18/2024 9:53 AM EDT) RESULT 3 Result 3 Few gram negative cocci TB 09/18/2024 9:53 AM EDT 09/18/2024 10:37 AM EDT Narrative [facility] - 09/21/2024 9:07 PM EDT us Generic External Data Provider LAB BLOOD ORDERAB LES Final Result [facility] * RESULT 2 (09/18/2024 9:53 AM EDT) RESULT 2 Result 2 Few gram negative rods. [facility] 09/18/2024 9:53 AM EDT 09/18/2024 10:37 AM EDT Narrative [facility] - 09/21/2024 9:07 PM EDT us Generic External Data Provider LAB BLOOD ORDERAB LES Final Result Performing Organization Address [facility]/ZIP Co de Phone Number [facility] * RESULT 1 (09/18/2024 9:53 AM EDT) RESULT 1 Result 1 Many gram positive cocci. [facility] 09/18/2024 9:53 AM EDT 09/18/2024 10:37 AM EDT Narrative [facility] - 09/21/2024 9:07 PM EDT Generic External Data Provider LAB BLOOD ORDERAB LES Final Result Performing Organization Address [facility] Co de Phone Number [facility] * EPITHELIAL CELLS (09/18/2024 9:53 AM EDT) EPITHELIAL CELLS Epithelial Cells Few [facility] 09/18/2024 9:53 AM EDT 09/18/2024 10:37 AM EDT Narrative [facility] - 09/21/2024 9:07 PM EDT Generic External Data Provider LAB BLOOD ORDERAB LES Final Result Performing Organization Address [facility] Co de Phone Number [facility] * WHITE BLOOD CELLS (09/18/2024 9:53 [...] Laterality Modality Radiographic Carmen ging Domi Altamirano CONVEYOR MONITOR IMG XR PROCEDURES Final Result * (ABNORMAL) HMHP URINALYSIS, WITH MICROSCOPIC (09/16/2024 1:21 AM EDT) [...] STL-IMP Negative Negative 10/21/2023 5:33 PM EDT [facility] (CLIA #:[id number]) Comment: NEGATIVE TEST RESULT. A negative Cologuard [...] (Ousmane Buitrago al, N Engl J Med 2014;370(14):7140-4089) The normal value (reference range) for this assay is negative. COLOGUARD RE-SCREENING RECOMMENDATION: Periodic colorectal cancer screening is an important part of preventive healthcare for asymptomatic individuals at average risk for colorectal cancer. Following a negative Cologuard result, the [place] [employer] Society and U.S. Multi-Society Task Force screening guidelines recommend a Cologuard re-screening interval of 3 years. References: [place] [employer] Guideline for Colorectal Cancer Screening: https://www.cancer.org/cancer/gfbja-yxqkba-cgmgph/elgxaqkwq-lvgoghwlu-ejtxjze/ac s-rec ommendations.html.; Jonathan DK, John CR, Ciro AdamsK, Colorectal Cancer Screening: Recommendations for Physicians and Patients from the U.S. Multi-Society Task Force on Colorectal Cancer Screening , Am J Gastroenterology 2017; 112:1747-0680. TEST DESCRIPTION: Composite algorithmic analysis of stool [...] (Ousmane Buitrago al, N Engl J Med 2014;370(14):5995-7429.) Cologuard may produce a false negative or false positive result (no colorectal cancer or precancerous polyp present at colonoscopy follow up). A negative Cologuard test result does not guarantee the absence of CRC or advanced adenoma (pre-cancer). The current Cologuard screening interval is every 3 years. ([place] [employer] Society and U.S. Multi-Society Task Force). Cologuard performance data in a 10,000 patient pivotal study using colonoscopy as the reference method can be accessed at the following location: www.yetu.[employer]results. Additional description of the Cologuard test process, warnings and precautions can be found at www.colNerVve Technologiesrd.com. Stool specimen (specimen) 10/09/2023 1:30 PM EDT 10/11/2023 8:01 AM EDT Domi Altamirano NP LAB MOLECULAR DIAGNOSTICS ORDER DEANDRE Final Result [facility] (CLIA #:[id number]) [address] [address], [facility] (CLIA #:[id number]) [address] [address] * MM TOMOSYNTHESIS SCREENING BI (09/25/2023 3:19 PM EDT) Anatomical Region Laterality Modality Other 09/25/2023 3:19 PM EDT Narrative 09/25/2023 3:20 [place] [address] Mammography Report Signed Patient: RYLEE BURTON MR#: [id number] : 1975 Acct:[id number] Age/Sex: 48 / F ADM Date: 09/24/23 Loc: MAMMO Attending Dr: Domi Altaimrano NP Ordering Physician: Domi Altamirano NP Results: Date of Service: 09/24/23 Follow Up: Procedure(s): MM tomosynthesis screening BI Accession Number(s): [id number] cc: Domi Altamirano NP Patient Name: RYLEE BURTON MR#: [id number] : 1975 Exam Date: 09/24/2023 Ordering Doctor: [...] age 63. LOCATION: [facility] BREAST COMPOSITION: The breasts are heterogeneously [...] Signed By: 09/25/23 1520 DD/ 1519 TD/TT: Lithostripper: Procedure Note Radiology, Radiologist, MD - 09/25/20[address] [place] [address] Mammography Report Signed Patient: RYLEE BURTON KMR#: [id number] : 1975Acct:[id number] Age/Sex: 48 / FADM Date: 09/24/23 Loc: MAMMO Attending Dr: Domi Altamirano NP Ordering Physician: Domi Altamirano NPResults: Date of Service: 09/24/23Follow Up: Procedure(s): MM tomosynthesis screening BI Accession Number(s): [id number] cc: Domi Altamirano NP Patient Name: RYLEE BURTON MR#: [id number] : 1975 Exam Date: 09/24/2023 Ordering Doctor: [...] age 63. LOCATION: [facility] BREAST COMPOSITION: The breasts are heterogeneously [...] M.D. Signed By:09/25/23 1520 DD/ 1519 TD/TT: Lithostripper: us Domi Altamirano NP [facility] IMAGING Final [...] Billing Address Personal/Family Self 1975 [address] [facility] [address] [place] [address] [facility] Care Teams Acoustical Tile Carpenters Supervisor Relationship Specialty Start Date End Date Domi Altamirano NP [address] [place] [address] [facility] Unallocated, [facility] Provider, [address] [place] [address] PCP - General Family Medicine 10/14/24
--- OUTSIDE RECORDS SUMMARY | 2024-12-16 14:18 | XMS_ITS | Encounter Summary ---
Demographics Address [address] [facility] [address] [place] [address] Home Phone Email Address Preferred Language en Marital Status Sabianist Affiliation Unknown Race White Ethnic Group Not or Lati no Author Organization [facility] Address [address] [place] [address] Care Team Providers Care Orthopedic Nurse Practitioner Name Role Phone Nakul Swenson MD Primary Care Provider [phone] Encounter Details Date Type Department Care Team (Late Contact Info) Description 12/08/2024 Abstract [facility] Heart at [facility] [address] [place] [address] Unknown, Unknown, Social History Tobacco Use Types Packs/Day Years [...] Department Care Team (Late Contact Info) Description 01/21/2025 8:00 AM EDT Appointment [facility] Imaging [address] [place] [phone] documented as of this encounter Visit Diagnoses Not on filedocumented in this encounter Care Teams Orthopedic Nurse Practitioner Relationship Specialty Start Date End Date Nakul Swenson MD [address] [facility] [address] [address] PCP - General Family Medicine 12/01/24 documented as of this encounter
--- OUTSIDE RECORDS SUMMARY | 2024-12-16 14:18 | XMS_ITS | Encounter Summary ---
Author Organization [facility] Address [address] [place] [address] Care Team Providers Care Registered Nurse Maternity Name Role Phone Domi Altamirano CAMERA TUNING ENGINEER Unavailable [phone] Hiren Horton MD Primary Care Provider Domi Altamirano CAMERA TUNING ENGINEER Unavailable [phone] Domi Altamirano NP Unavailable [phone] Unallocated, [facility] Provider Primary Care Provi taylor Encounter Details Date Type Department Care Team (Late st Contact Info) Description 10/03/2023 Orders Only [facility] [address] [place] [place] [address] Orly Rushing MD [address] [place] [address] Social History Tobacco Use Types [...] on filedocumented in this encounter Care Teams Registered Nurse Maternity Relationship Specialty Start Date End Date Hiren Horton MD PCP - General Family Medicine 07/26/23 10/13/24 Domi Altamirano NP [address] [place] [address] PCP - [facility] 08/24/24 Unallocated, Noms Provider, [address] [place] [address] PCP - General Family Medicine 10/14/24 Domi Altamirano NP Nurse Practitioner Family Medicine 03/26/22 10/13/24 Domi Altamirano NP Nurse Practitioner Family Medicine 07/26/23 10/13/24 documented as of this encounter
--- OUTSIDE RECORDS SUMMARY | 2024-12-16 14:18 | XMS_ITS | Encounter Summary ---
Demographics Address [address] [facility] [address] [place] [address] Mobile Phone Home Phone Work Phone Email Address Preferred Language en Marital Status Shinto Affiliation Unknown Race White Ethnic Group Not or Lati no Author Organization [facility] Address [address] [place] [address] Care Team Providers Care Greige Goods Examiner Name Role Phone Domi Altamirano NP Unavailable [phone] Hiren Horton MD Primary Care Provider Domi Altamirano STUDENT SUCCESS ADVISOR Unavailable [phone] Domi Altamirano NP Unavailable [phone] Unallocated, [facility]oms Provider Primary Care Provi taylor Encounter Details Date Type Department Care Team (Late st Contact Info) Description 09/16/2024 Abstract [facility] [address] [place] [address] Domi Altamirano, STUDENT SUCCESS ADVISOR [address] [place] [id number] Social History Tobacco Use Types Packs/Day Years [...] How often do you attend taoist or protestant serv ices? Never 10/08/2023 Do [...] heating? Very hard 10/08/2023 [facility] - Occupational Stress [...] any time in the past 12 m [facility], were you homeless or [...] on filedocumented in this encounter Care Teams Greige Goods Examiner Relationship Specialty Start Date End Date Hiren Horton MD PCP - General Family Medicine 07/26/23 10/13/24 Domi Altamirano NP [address] [place] [address] PCP - [place] [employer] 08/24/24 Unallocated, Noms Provider, [address] [place] [address] PCP - General Family Medicine 10/14/24 Domi Altamirano NP Nurse Practitioner Family Medicine 03/26/22 10/13/24 Domi Altamirano NP Nurse Practitioner Family Medicine 07/26/23 10/13/24 documented as of this encounter
--- OUTSIDE RECORDS SUMMARY | 2024-12-16 14:18 | XMS_ITS | Encounter Summary ---
Demographics Address [address] [facility] [address] [place] [address] Mobile Phone Home Phone Work Phone Email Address Preferred Language en Marital Status Adventist Affiliation Unknown Race White Ethnic Group Not or Lati no Author Organization [facility] Address [address] [place] [address] Care Team Providers Care Commercial Analyst Name Role Phone Domi Altamirano WATER FILTRATION TECHNICIAN Unavailable [phone] Hiren Horton MD Primary Care Provider [phone] Domi Altamirano WATER FILTRATION TECHNICIAN Unavailable [phone] Domi Altamirano NP Unavailable [phone] Unallocated, Noms Provider Primary Care Provi taylor Encounter Details Date Type Department Care Team (Late st Contact Info) Description 09/25/2023 Orders Only [facility] [address] [place] [address] Carolyn Seven, OD [address] [id number] Social History Tobacco Use Types Packs/Day Years [...] Modality Radiographic Carmen ging us Domi Altamirano WATER FILTRATION TECHNICIAN IMG XR PROCEDURES Final Result * Diabetic Retinopathy Screening - OU - Both Eyes (09/25/2023 8:54 AM EDT) Anatomical Region Laterality Modality Head Other us Seven Carolyn OD OPHTH PHOTOGRAPHY Final Result documented in this encounter Visit Diagnoses Not on filedocumented in this encounter Care Teams Commercial Analyst Relationship Specialty Start Date End Date Hiren Horton MD PCP - General Family Medicine 07/26/23 10/13/24 Domi Altamirano NP [address] [place] [address] PCP - [facility] 08/24/24 Unallocated, Noms MD Mariaelena [address] [place] [address] PCP - General Family Medicine 10/14/24 Domi Altamirano NP Nurse Practitioner Family Medicine 03/26/22 10/13/24 Domi Altamirano NP Nurse Practitioner Family Medicine 07/26/23 10/13/24 documented as of this encounter
--- OUTSIDE RECORDS SUMMARY | 2024-12-16 14:18 | XMS_ITS | Clinical Summary ---
Author Organization [facility] Address [id number] [place] [address] Care Team Providers Care Display Carver Name Role Phone No Pcp, No Pcp [...] specimen type ThinPrep 10/04/2023 4:33 AM EDT [facility] Hpv 16 Negative Negative^N egative 10/04/2023 1:07 PM EDT [facility] Hpv 18 Negative Negative^N egative 10/04/2023 1:07 PM EDT [facility] Other high risk hpv Negative Negative^N egative 10/04/2023 1:07 PM EDT [facility] Comment: HPV types 31,33,35,39,45,52,56,58,59,66 and 68 DNA were undetectable. 

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
[2024-12-16 15:22] VITALS: BP 114/88; PULSE 112; O2SAT 100
== END 2024-12-16 15:25 | disposition home or self-care (01) ==
PROVIDERS: Emergency Provider Emergency Medicine; PCP Family Medicine
DX: D75.839 Thrombocytosis, unspecified (principal); F17.200 Nicotine dependence, unspecified, uncomplicated
CPT/HCPCS: 36415; 85240; 85245; 85246; 93005; 99283

== ENCOUNTER 2024-12-24 13:40 | Outpatient (OUT) | payer BC, SELFPAY ==
[2024-12-24 14:24] LABS: Alanine Aminotransferase 19 U/L (14-59); Albumin Globulin Ratio 0.3; Albumin Level 1.9 g/dL (3.4-5.0); Alkaline Phosphatase 523 U/L (46-116); Anion Gap 12.6; Aspartate Amino Transferase 28 U/L (15-37); Blood Urea Nitrogen 12.0 mg/dL (7.0-18.0); Calcium 10.1 mg/dL (8.5-10.1); Carbon Dioxide 27.0 mmol/L (21.0-32.0); Chloride 99 mmol/L (98-107); Estimated GFR (African America >60 (>=60 mL/min/1.73m^2); Estimated GFR (Non-African Ame >60 (>=60 mL/min/1.73m^2); Globulin 6.8 g/dL; Glucose 106 mg/dL (74-106); Sodium 133 mmol/L (136-145); Total Protein 8.7 g/dL (6.4-8.2)
[2024-12-24 14:38] LABS: Hematocrit 26.5 % (36.0-48.0); Hemoglobin 7.7 g/dL (12.0-16.0); Immature Granulocytes Abs Auto 0.08 10^3/uL (0.00-0.03); Immature Granulocytes Pct Auto 0.5 % (0.0-0.5); Lymphocytes Absolute Auto 3.8 10^3/uL (1.2-3.8); Mean Corpuscular HGB Conc 29.1 g/dL (29.9-35.2); Mean Corpuscular Hemoglobin 27.7 pg (26.7-34.0); Mean Corpuscular Volume 95.3 fL (81.0-99.0); Platelet Count 681 10^3/uL (150-450); Red Blood Count 2.78 10^6/uL (4.20-5.40); White Blood Count 14.9 10^3/uL (4.0-11.0)
[2024-12-24 14:39] LABS: Potassium 5.6 mmol/L (3.5-5.1)
== END 2024-12-24 13:41 | disposition home or self-care (01) ==
LOC: LAB 13:40
PROVIDERS: PCP Family Medicine
DX: D75.839 Thrombocytosis, unspecified (principal); R59.1 Generalized enlarged lymph nodes; G89.3 Neoplasm related pain (acute) (chronic)
CPT/HCPCS: 36415; 80053; 85025

== ENCOUNTER 2024-12-30 15:52 | Outpatient (REF) | payer BC, SELFPAY ==
--- OUTSIDE RECORDS SUMMARY | 2024-08-15 03:51 | XMS_ITS | Continuity of Care Document ---
Author Organization [facility] Address [address] [place] [address] Phone Care Team Providers Care Child Care Cook Name Role Phone Dylan Vincent DDS Unavailable [...] 1st Film Nutrit Couns For Control Of [place] Dis July Comp Oral Eval New/estab Patient 2024 Comp Oral Eval New/estab Patient 2024 Extract; Erupted Th/exposted Rt 025 Oral Hygiene Instruction Intraoral-periapical 1st Film Bitewig-single Film Limited Oral Eval Oral Hygiene Instruction COVID-19 Antigen Test Nutrit Couns For Control Of [place] Dis Apr Post Op Visit Dental Post [...] 3s; Posterior Nutrit Couns For Control Of [place] Dis Mar Resin Composite 4+s; Posterior Oral [...] on Encounter [facility], [address] [place], [place], [id number], [place] tel:[phone] [facility] Dental Clinic dn (chief complaint) Encounter for screening for dental disorders 5 Vincent DDS Yixue. [address] [place], [address], [place]. tel:[phone] [facility], [address] [place] [address], [id number], [place] tel:[phone] [facility] Dental Clinic ext (chief complaint) Encounter for screening for dental disorders 5 Vincent DDS Yixue. [address] [place] [address], [address], [place]. tel:[phone] [facility], [address] [place] [address], [id number], [place] tel:[phone] [facility] Dental Clinic er (chief complaint) Encounter for screening for dental disorders 5 Vincent DDS Yixue. [address] [place] [address], [address], [place]. tel:[phone] [facility], [address] [place] [address], [id number], [place] tel:[phone] Dental Clinic POV (chief complaint) Encounter for screening for COVID-19Encounter for screening for dental disorders 2 José Luis Ayoub. [address] [place] [address], [address], [place]. tel:[phone] [facility], [address] [place] [address], [id number], [place] tel:[phone] Dental Clinic No Information 2 Ruddy Delgado. [address] [place] [address], [id number] , [place]. tel:[phone] [facility], [address] [place] [address], [id number], [place] tel:[phone] COVID [facility] No Information 2 Kervin Adkins. [address] [place], [place], [id number] , [place]. tel:+ [phone] [facility], [address] [place], [place], [id number], [place] tel:[phone] Dental Clinic Dental Limited (chief complaint) Encounter for screening for dental disorders 2 Ruddy Delgado. [address] [place], [place], [id number] , [place]. tel:+ [phone] [facility], [address] [place], [place], [id number], [place] tel:[phone] Dental Clinic Fill (chief complaint) Encounter for screening for dental disorders 2 Ruddy Delgado. [address] [place], [place], [id number] , [place]. tel: [phone] [facility], [address] [place], [place], [id number], [place] tel:[phone] Dental Clinic Fillings (chief complaint) Encounter for screening for dental disorders 2 Ruddy Delgado. [address] [place], [place], [id number] , [place]. tel:+ [phone] [facility], [address] [place], [place], [id number], [place] tel:[phone] Dental Clinic Fill (chief complaint) Encounter for screening for dental disorders 2 Ruddy Delgado. [address] [place], [place], [id number] , [place]. tel:+ [phone] [facility], [address] [place], [place], [id number], [place] tel:[phone] Dental Clinic filling (chief complaint) Encounter for screening for dental disorders 2 José Luis Ayoub. [address] [place], [address], [place]. tel:+ [phone] [facility], [address] [place], [place], [id number], [place] tel:[phone] Dental Clinic Filling (chief complaint) Encounter for screening for dental disorders 2 Ordonez DDS Mega. [address] [place], [address], [place]. tel: [phone] [facility], [address] [place], [place], [id number], [place] tel:[phone] Dental Clinic DL (chief complaint) Encounter for screening for dental disorders 2 Ordonez DDS Mega. [address] [place], [address], [place]. tel: [phone] [facility], [address] [place] [address], [id number], [place] tel:[phone] Dental Clinic dental new (chief complaint) Encounter for screening for dental disorders 9 Domarkos DDS Alfredojulianek. [address] [place], [place], [id number] , [place]. tel: [phone] [facility], [address] [place] [address], [id number], [place] tel:[phone] [facility] Detox Encounter for test, result negativeAlcohol dependence with withdrawal, unspecifiedAnxiety disorder, unspecifiedCough Mar-0 8-201 8 [place] Zachary. [address] [place], [address], [place]. tel: [phone] [facility], [address] [place] [address], [id number], [place] tel:[phone] [facility] Detox [place]: (chief complaint) Encounter for test, result negativeAlcohol dependence with withdrawal, unspecifiedAnxiety disorder, unspecifiedCough Mar-0 7-201 8 [place] Zachary. [address] [place], [address], [place]. tel: [phone] [facility], [address] [place] [address], [id number], [place] tel:[phone] [facility] Detox Encounter for test, result negativeAlcohol dependence with withdrawal, unspecifiedAnxiety disorder, unspecified Mar-0 6-201 8 Madisonag[place] Sharma. [address] [place], [address], [place]. tel:[phone] [facility], [address] [place] [address], [id number], [place] tel:[phone] [facility] Detox Encounter for test, result negativeAlcohol dependence with withdrawal, unspecifiedAnxiety disorder, unspecified Mar-0 6-201 8 [place] Sharma. [address] [place], [address], [place]. tel:[phone] [facility], [address] [place] [address], [id number], [place] tel:[phone] [facility] Detox [place]: (chief complaint) Encounter for test, result negativeAlcohol dependence with withdrawal, unspecifiedAnxiety disorder, unspecified Mar-0 5-201 8 [place] Sharma. [address] [place], [address], [place]. tel:[phone] Family History Family Member Type Diagnosis Age [...] mellitus Payers Payer name Insurance type Covered constitution party ID Sarah monroe(s) Randal [facility] 17 [id number] Social History Type Description Quantity Date Captured [...] tr eatment DL DL [facility] [place]: Doing better now than when last seen. Coughing 5 or 6 days. Bringing up green and dark sputum. Has used a Ventolin inhaler in the past. 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 Functional Status Date Functional Assessmen t No Information Instructions Date Instruction Additional Infor mation No Information Assessments Type Assessment Date No Information Patient Care Teams Name Effective Dates (start - stop) Status Members No Information
--- OUTSIDE RECORDS SUMMARY | 2024-12-24 09:00 | XMS_ITS ---
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 Name Role Phone LeelaMansoor Primary Care Provider Allergies Allergen (clinical drug ingredient) Drug/Non Drug Allergy documented on EMR Reaction Allergy Type Onset Date Status prednisone predniSONE Insides Feel Like On Fire Drug Allergy Active REASON FOR VISIT Cyst in groin area Medications Medication SIG (Take, Route, Frequency, Duration) Notes Start Date End Date Status Promethazine HCl 12.5 MG 1 tablet as needed Orally every 6 hrs PRN Active Potassium Chloride ER 20 MEQ 1 tablet with food Orally Once a day; Duration: 90 days Active Losartan Potassium 50 MG 1 tablet Orally Once a day; Duration: 90 days Active Glucerna Shake - Drink 237ml Orally three times daily DXE43; Duration: 30 days 90 Bottles for 30 days- needs 21,330 ml for one month 11/18/2024 Active Cefdinir 300 MG 2 capsule Orally once a day; Duration: 10 days 12/24/2024 Active oxyCODONE HCl 5 MG 1 tablet as needed Orally every 6 hrs; Duration: 30 days M54.9 Active Omeprazole 40 MG 1 tablet Oral Twice Daily; Duration: 90 days Active Gabapentin 600 MG TAKE 1/2 TABLET BY MOUTH EVERY 8 HOURS Oral; Duration: 30 days Active Albuterol Sulfate HFA 108 (90 Base) MCG/ACT INHALE 2 PUFFS EVERY 6 HOURS IF NEEDED FOR WHEEZING OR SHORTNESS OF BREATH. Inhalation; Duration: 90 Days Active Doxycycline Monohydrate 100 MG 1 tablet Orally bid; Duration: 10 days 12/24/2024 Active Social History Tobacco Use: Social History [...] Problem Status W/U Status Risk Notes Problem Boil ([id number]) Boil (L02.92) Active confirmed Vital Signs Weight 81.0 lbs 12/24/2024 Height 66 in 12/24/2024 Blood pressure systolic 98 mm Hg 12/25/19 25 Blood pressure diastolic 62 mm Hg 025 BMI 13.07 kg/m2 12/24/2024 Encounters Encounter Location Date Provider Diagnosis [facility] [address] [place] [address] 12/24/2024 Mansoor Swenson Boil L02.92 Assessments Encounter Date Diagnosis (ICD Code) Assessment Notes Treatment Notes Treatment Clinical Notes Section Notes 12/24/2024 Boil (ICD-10 - L02.92) Plan Of Treatment Medication Medication Name Sig Start Date Stop Date Notes Cefdinir 300 MG 2 capsule Orally onc e a day; Duration: 10 days 12/24/2024 Doxycycline Monohydrate 100 MG 1 tablet Orally bid; Duration: 10 days 12/24/2024 Procedure Notes * Category Sub-Category Detail Notes Incision and Drainage: Procedure Note: sterile p repa lee drap R groin - lanced with mod drainangue purulent - dressing applied Progress Notes * Rylee MERRILL KDOB:[birth year] (49 yo F)Acc No.[id number]:12/24/2024 Progress Note Patient: Lui MCDOWELLqueline Yahir Provider: Randal Swenson ([facility])MD :1975 A ge:49 Y S ex:Female Date:12/24/2024 Address:[facility] [address] [place], [place] [id number] Check In:12:59 PM ESTCheck O ut:01:32 PM EST Subjective: * Chief Complaints: * C yst in groin area * HPI: G eneral: Dx with [employer] - gettng pet scan on sunday - bx on lymph nodes. * Active Problem List I10 Hypertension Modified On:10/01/2024 Status:confirmed J45.909 Asthma Modified On:10/01/2024 Status:confirmed J44.9 COPD (chronic obstru ctive pulmonary disease) Modified On:10/01/2024 Status:confirmed E78.00 Hypercholesteremia Modified On:10/01/2024 Status:confirmed A37.90 Pertussis Modified On:09/23/2024 Status:confirmed D64.9 Acute anemia Modified On:09/25/2024 Status:confirmed D47.3 Thrombocythemia Modified On:10/01/2024 Status:confirmed D47.1 Myeloproliferative d isorder Modified On:10/20/2024 Status:confirmed E43 Severe malnutrition Modified On:11/18/2024 Status:confirmed M54.9 Back pain Modified On:12/01/2024 Status:confirmed I50.9 CHF (congestive hear t failure) Modified On:12/01/2024 Status:confirmed D69.6 Thrombocytopenia Modified On:12/16/2024 Status:confirmed R64 Cachexia Modified On:12/16/2024 Status:confirmed L02.92 Boil Modified On:12/24/2024 Status:confirmed * Medical History: * Surgical History: C lavical Tubal Gall Bladder Removal Appendectomy Exploratory Bone Marrow Biopsy * Hospitalization/Major Diagno stic Procedure: A nemia, Weakness 08/2024[place]/ Myeloproliferative Neoplasms bd pain 12/18 * Family History: F ather: . M other: alive, diagnosed with Diabetes, Heart Disease. S ister(s): alive. S on(s): alive. D [...] BREATH. Inhalation Gabapentin 600 MG Tablet TAKE 1/2 TABLET BY MOUTH EVERY 8 [...] tablet as needed Orally every 6 hrs M54.9Potassium Chloride ER 20 MEQ Tablet Extended Release 1 tablet with food Orally Once a day Promethazine HCl 12.5 MG Tablet 1 tablet as needed Orally every 6 hrs , Notes to Pharmacist: PRNTaking Albuterol Sulfate HFA 108 (90 Base) MCG/ACT Aerosol Solution INHALE 2 PUFFS EVERY 6 HOURS IF NEEDED FOR WHEEZING OR SHORTNESS OF BREATH. Inhalation Taking Gabapentin 600 MG Tablet TAKE 1/2 TABLET BY MOUTH EVERY 8 [...] tablet as needed Orally every 6 hrs M54.9Taking Potassium Chloride ER 20 MEQ Tablet Extended Release 1 tablet with food Orally Once a day Taking Promethazine HCl 12.5 MG Tablet 1 tablet as needed Orally every 6 hrs , Notes to Pharmacist: PRNDiscontinuedHydroxyurea 500 MG Capsule 1 capsule Orally Once a day Indomethacin 50 MG Capsule 1 capsule with food or milk Orally Twice a day Propranolol HCl 20 MG Tablet 1 tablet Orally Twice a day Medication List reviewed and reconciled with the patientDiscontinued Hydroxyurea 500 MG Capsule 1 capsule Orally Once a day Discontinued Indomethacin 50 MG Capsule 1 capsule with food or milk Orally Twice a day Discontinued Propranolol HCl 20 MG Tablet 1 tablet Orally Twice a day Medication List reviewed and reconciled with the patient * Allergies: p redniSONE: Insides Feel Like On Fireno[Allergies Verified] Objective: * Vitals: W t:81.0lbs, Ht: 66 in, BP:98/62mm Hg, BMI:13.07Index, Ht-cm: 167.64 cm, Wt-k.74 kg. * Examination: A bdomen Exam:: C yst in R groin. Assessment: * Assessment: 1. B oil - L02.92 (Primary) Plan: * Treatment: * Procedures: I ncision and Drainage:: Procedure Note: s terile prepa lee drap R groin - lanced? with mod drainangue purulent - dressing applied. * Procedure Codes: * * Sign off status: Completed Visit Status: C HK (Check Out) true * Provider: Randal Swenson ([facility])MD Date: Generated for Colby woods/Titi/Krista on: 03:58 PM EDT History and Physical Notes * HPI (History of Present Illness) Category Sub-Category Detail Notes Category Not es General Dx with Von Don [facility]aironbr[facility] - gettng pet scan on sunday - bx on lymph nodes Examination Category Sub-Category Detail Notes Category Not es Abdomen Exam: Cyst in R groi n
--- OUTSIDE RECORDS SUMMARY | 2024-12-24 13:53 | XMS_ITS ---
Demographics Address [address] [facility] [address] [place] [address] Mobile Email Address Preferred Language en Marital Status Amish Affiliation Unknown Race White Ethnic Group Not or Lati no Author Organization [facility] in [place] Address [address] [place] [address] Care Team Providers Care Button Machine Operator Name Role Phone Mansoor Swenson Primary Care Provider REASON FOR VISIT lab results Medications Medication SIG (Take, Route, Frequency, Duration) Notes Start Date End Date Status Promethazine HCl 12.5 MG 1 tablet as needed Orally every 6 hrs PRN Active oxyCODONE HCl 5 MG 1 tablet as needed Orally every 6 hrs; Duration: 30 days M54.9 Active Potassium Chloride ER 20 MEQ 1 tablet with food Orally Once a day; Duration: 90 days HOLDING Active Losartan Potassium 50 MG 1 tablet Orally Once a day; Duration: 90 days Active Omeprazole 40 MG 1 tablet Oral Twice Daily; Duration: 90 days Active Albuterol Sulfate HFA 108 (90 Base) MCG/ACT INHALE 2 PUFFS EVERY 6 HOURS IF NEEDED FOR WHEEZING OR SHORTNESS OF BREATH. Inhalation; Duration: 90 Days Active Cefdinir 300 MG 2 capsule Orally once a day; Duration: 10 days 12/24/2024 Active Glucerna Shake - Drink 237ml Orally three times daily [id number]; Duration: 30 days 90 Bottles for 30 days- needs 21,330 ml for one month 11/18/2024 Active Doxycycline Monohydrate 100 MG 1 tablet Orally bid; Duration: 10 days 12/24/2024 Active Gabapentin 600 MG TAKE 1/2 TABLET BY MOUTH EVERY 8 HOURS Oral; Duration: 30 days Active Encounters Encounter Location Date Provider Diagnosis [facility] [address] [place] [address] 12/24/2024 Mansoor Swenson Hyperkalemia E87.5 Assessments Encounter Date Diagnosis (ICD Code) Assessment Notes Treatment Notes Treatment Clinical Notes Section Notes 12/24/2024 Hyperkalemia (ICD-10 - E87.5) Plan Of Treatment Pending Test Test Name Order Date BMP - Basic Metabolic Panel 12/24/2024 Progress Notes * Rylee MERRILL KDOB:[birth year] (49 yo F)Acc No.[id number]:12/24/2024 Patient: Rylee MCDOWELL :1975 A ge:49 Y S ex:Female Address:[facility] [address], [address] Subjective: * Chief Complaints: * L ab results * Medical History: * Surgical History: * Hospitalization/Major Diagno stic Procedure: * Medications: T akingAlbuterol Sulfate HFA 108 (90 Base) MCG/ACT Aerosol Solution INHALE 2 PUFFS EVERY 6 HOURS IF NEEDED FOR WHEEZING OR SHORTNESS OF BREATH. Inhalation Cefdinir 300 MG Capsule 2 capsule Orally once a day Doxycycline Monohydrate 100 MG Tablet 1 tablet Orally bid Gabapentin 600 MG Tablet TAKE 1/2 TABLET [...] tablet with food Orally Once a day , Notes to Pharmacist: HOLDINGPromethazine HCl 12.5 MG Tablet 1 tablet as needed Orally every 6 hrs , Notes to Pharmacist: PRNTaking Albuterol Sulfate HFA 108 (90 Base) MCG/ACT Aerosol Solution INHALE 2 PUFFS EVERY 6 HOURS IF NEEDED FOR WHEEZING OR SHORTNESS OF BREATH. Inhalation Taking Cefdinir 300 MG Capsule 2 capsule Orally once a day Taking Doxycycline Monohydrate 100 MG Tablet 1 tablet Orally bid Taking Gabapentin 600 MG Tablet TAKE 1/2 [...] tablet with food Orally Once a day , Notes to Pharmacist: HOLDINGTaking Promethazine HCl 12.5 MG Tablet 1 tablet as needed Orally every 6 hrs , Notes to Pharmacist: PRN Objective: * Vitals: * Physical Examination: Assessment: * Assessment: 1. H yperkalemia - E87.5 (Primary) Plan: * Treatment: * Procedure Codes: * true * Date: Generated for Colby woods/Titi/Krista on: 03:59 PM EDT
--- OUTSIDE RECORDS SUMMARY | 2024-12-25 09:35 | XMS_ITS | Continuity of Care Document ---
Demographics Address [address] [place] [address] Phone Email Address Preferred Language Mohawk Marital Status Jehovah'S Witness Affiliation Voodoo (non-Cat holic, non-specific) Race White Ethnic Group Not or Lati no Author Organization [facility] Address [address] [place] [address] Phone Care Team Providers Care Substance Abuse Therapist Name Role Phone Nakul Swenson MD Primary Care Provider Li Ku MD Admit Provider Li Ku MD Other Provider Billie Head MD Other Provider Martha Angel [employer]-C Other Provider Jose M Mercedes II, DO Other Provider Carissa Deleon MD Other Provider Ling Cooper MD Other Provider Lynette Banuelos Other Provider Lora Hsu Other Provider Windy Rivera Other Provider Charbel Weathers MD Other Provider Brittany Leija APRN Other Provider [phone] Lisa Siddiqui Other Provider Gustavo Victoria MD Other Provider Gaudencio Abad MD Attending Provider Gaudencio Abad MD Other Provider Young Sorenson MD Other Provider Anitha Sebastian MD Attending Provider Anitha Sebastian MD Other Provider Lora Douglas APRN Attending Provider Charbel Weathers MD Attending Provider Jonathan Taylor DO Attending Provider NON STAFF Primary Care Provider Unavailabl e Care Teams Patient Care Team Team Status: Active Member Role Status Dates NON STAFF Family Provider Active NON STAFF Primary Care Provider Active Visit Care Team Team Status: Active Member Role Status Dates Nakul Swenson MD Primary Care Provider Active Start: October 08, 2024 Li Ku MD Admit Provider Active Start: [email or web address] Li Ku MD Other Provider Active Start: 2024 Billie Head MD Other Provider Active Start: October 08, 2024 Martha Angel NP-Bishnu Other Provider Active St art: October 08, 2024 Jose M Mercedes II, DO Other Provider Active Start: October 08, 2024 Carissa Deleon MD Other Provider Active Start: 2024 Ling Cooper MD Other Provider Active Start: 2024 Lynette Banuelos Other Provider Active Start: September 232024 Lora Hsu Other Provider Active Start: October 08, 2024 Windy Rivera Other Provider Active Start: Naomi mohan 2024 Charbel Weathers MD Other Provider Active Start: October 08, 2024 Brittany Leija APRN Other Provider Active Star t: October 08, 2024 Lisa Siddiqui Other Provider Active Start: October 08, 2024 Gustavo Victoria MD Other Provider Active Start: October 08, 2024 Gaudencio Abad MD Attending Provider Active Start: October 08, 2024 Gaudencio Abad MD Other Provider Active Start: October 08, 2024 Visit Care Team Team Status: Active Member Role Status Dates Nakul Swenson MD Primary Care Provider Active Start: October 15, 2024 Li Ku MD Admit Provider Active Start: 2024 Billie Head MD Other Provider Active Start: October 15, 2024 Martha Angel NP-C Other Provider Active St art: October 15, 2024 Jose M Mercedes II, DO Other Provider Active Start: October 15, 2024 Carissa Deleon MD Other Provider Active Start: 2024 Ling Cooper MD Other Provider Active Start: 2024 Lynette Banuelos Other Provider Active Start: September 242024 Lora Hsu Other Provider Active Start: October 15, 2024 Windy Rivera Other Provider Active Start: 2024 Charbel Weathers MD Other Provider Active Start: October 15, 2024 Brittany Leija APRN Other Provider Active Star t: October 15, 2024 Lisa Siddiqui Other Provider Active Start: October 15, 2024 Gustavo Victoria MD Other Provider Active Start: October 15, 2024 Young Sorenson MD Other Provider Active Start: 2024 Anitha Sebastian MD Attending Provider Active Star t: October 15, 2024 Anitha Sebastian MD Other Provider Active Start: 2024 Visit Care Team Team Status: Inactive Member Role Status Dates Nakul Swenson MD Primary Care Provider Active Start: October 29, 2024 End: October 29, 2024 Lora Douglas APRN Attending Provider Active Start: October 29, 2024 End: October 29, 2024 Visit Care Team Team Status: Inactive Member Role Status Dates Nakul Swenson MD Primary Care Provider Active Start: October 30, 2024 End: October 30, 2024 Charbel Weathers MD Attending Provider Active Start: October 30, 2024 End: October 30, 2024 Young Sorenson MD Referring Provider Active Star t: October 30, 2024 End: October 30, 2024 Visit Care Team Team Status: Active Member Role Status Dates Nakul Swenson MD Primary Care Provider Active Start: November 19, 2024 Charbel Weathers MD Attending Provider Active Start: November 19, 2024 Visit Care Team Team Status: Active Member Role Status Dates Nakul Swenson MD Primary Care Provider Active Start: November 25, 2024 Charbel Weathers MD Attending Provider Active Start: November 25, 2024 Visit Care Team Team Status: Inactive Member Role Status Dates Jonathan Taylor DO Attending Provider Active Sta rt: November 26, 2024 End: November 26, 2024 Patient Care Team Team Status: Inactive Member Role Status Dates Lora Doulgas APRN Attending Provider Active Start: December 25, 2024 End: December 25, 2024 NON STAFF Primary Care Provider Active Start: December 25, 2024 End: December 25, 2024 NON STAFF Family Provider Active Start: er 2024 End: December 25, 2024 Chief Complaint and Reason for Visit Chief Complaint Admit Date HEMATOLOGICAL MALIGNANCY October 08, 2024 1:49pm HEMATOLOGICAL MALIGNANCY October 15, 2024 12:00am Inpatient Follow Up October 30, 2024 1:2 9pm Referral Order November 19, 2024 11 :02am Hematological Malignancy November 25, 2024 8:33am Unknown November 26, 2024 11:14am F/u December 25, 2024 12 :25pm Reason for Visit Admit Date Acute anemia October 08, 2024 1:49 pm Bone pain October 08, 2024 1:49 pm Essential thrombocytosis October 08, 2024 1:49pm Fever October 08, 2024 1:49 pm Leukocytosis October 08, 2024 1:49 pm Lymphadenopathy October 08, 2024 1:49 pm Pulmonary nodule October 08, 2024 1:49 pm Severe protein-calorie malnutrition October 08, 2024 1:49pm Thrombocytosis October 08, 2024 1:49 pm MAINOR (acute kidney injury) October 08 1:49pm Sepsis October 08, 2024 1:49 pm Cancer associated pain October 29, 2024 2:25pm Encounter for palliative care October 2:25pm Nausea & vomiting October 29, 2024 2:2 5pm Acute anemia October 30, 2024 1:2 9pm Bone pain October 30, 2024 1:2 9pm Essential thrombocytosis October 30 1:29pm Fever October 30, 2024 1:2 9pm Leukocytosis October 30, 2024 1:2 9pm Lymphadenopathy October 30, 2024 1:2 9pm Myeloproliferative neoplasm October 30, 2024 1:29pm Severe protein-calorie malnutrition Augu 2024 1:29pm Anorexia December 25, 2024 12 :25pm Cancer associated pain December 25, 2024 12:25pm Constipation December 25, 2024 12 :25pm Nausea & vomiting December 25, 2024 12 :25pm Reason for Referral Referring Provider Name Referring Provider Address Referring Provider Phone Referral Date Requested Appointment Date Referral Reason Li Ku [address] [facility] [address] Work Phone: [facility] [address] [facility] [address] Work Phone: [facility] [address] [facility] [address] Work Phone: The office is currently closed. Please call the office for a follow-up appointment. You have b een scheduled for a follow up appointment for the following date and time, please call to reschedule if needed. You have b een scheduled for a follow up appointment for the following date and time, please call to reschedule if needed. Allergies, Adverse Reactions, Alerts Allergen Type Severity Reaction Last Updated Verified Status erythromycin base Allergy Unknown Unknown Re action, vomiting December 25, 2024 12:49pm Yes Active methylprednisolone Allergy Unknown Unknown R eaction, hives, breathing issue December 25, 2024 12:49pm Yes Active Social History Smoking Status Status Start Date End Date Date of Observa tion Ex-smoker (finding) October 302024 1:55pm Observation Status Observation Response Date of Response Legal Sex Female (finding) Sex Assigned At Female 1975 Social History Assessments Assessment Value Date Recorded SDOH Follow up October 15, 2024 8:50am Question Answer Date Recorded Has the SDOH screening changed since admission? N October 15, 2024 8:50am Family History Relationship Condition Age at Onset Recorded Date/T nicole father Hypertension Unknown Malignant neoplasm Unknown mother Hypertension Unknown father Malignant neoplasm Unknown Unknown family member Unknown mother Diabetes mellitus Unknown History of stroke Unknown Problems Active Problems Medical Problem Onset Date Status Urinary tract infection Unknown Active Acute anemia Unknown Active Amphetamine adverse reaction Unknown Act carie Severe protein-calorie malnutrition Unknown Active Fever Unknown Active Anorexia Unknown Active Myeloproliferative neoplasm Unknown Acti ve Essential thrombocytosis Unknown Active Anxiety Unknown Active Depression Unknown Active Dyspnea Unknown Active Gastritis Unknown Active Leukocytosis Unknown Active Lymphadenopathy Unknown Active Asthma with exacerbation Unknown Active Pulmonary nodule Unknown Active Cancer associated pain Unknown Active Thrombocytosis Unknown Active Bone pain Unknown Active Jaw pain Unknown Active Polysubstance abuse Unknown Active Dental abscess Unknown Active Encounter for palliative care Unknown Ac tive Nausea & vomiting Unknown Active Constipation Unknown Active Vomiting Unknown Active Inactive/Resolved Problems Medical Problem Onset Date Status MAINOR (acute kidney injury) Unknown Resolv ed Medications Medication Status Dose Units Route Directions Qty Days St art Date Stop Date End Date Instructions Adherence Tramadol 50 mg tablet Discont inued 50 MG PO Four times daily as needed for pain 32 8 October 22, 2024 12:00a m Augus t 2024 3:50p m Hydroxyurea 500 mg capsule Discont inued 500 MG PO .COMPLEX 80 November 12, 2024 1:10pm Octob er 2024 12:50 pm 500 mg orally take 1 tab daily take 2 tabs 1000mg on Sunday and Sunday; Oxycodone 5 mg tablet Discont inued 5 MG PO Q6H as needed for pain 30 15 November 20, 2024 Septe er 2024 9:53a m Oxycodone 5 mg tablet Active 5 MG PO Q6H as needed for pain 30 15 2024 Complies with drug therapy Omeprazole 40 mg capsule,del ayed release(DR/ EC) Discont inued 40 MG PO Daily 2020 1:00am 2022 11:12 pm Baclofen 20 mg tablet Discont inued MG 2020 1:00am 2020 9:52a m Gabapentin 300 mg capsule Discont inued 2.5 MG PO Daily 2020 1:00am 2022 11:12 pm Fluoxetine 20 mg capsule Discont inued 20 MG 2020 1:00am 2020 9:52a m Buspirone 15 mg tablet Discont inued 15 MG PO 2021 1:00am morgan 2020 9:52a m Fluticasone -Umeclidin- Vilanter (Trelegy Ellipta) 200-62.5-25 mcg blister with device Discont inued 1 INH INHALA TION Daily er 2020 1:00am 2022 11:12 pm Metformin 500 mg Tablet Discont inued 500 MG PO Twice daily [facility] er 2020 1:00am 2022 11:12 pm Metoprolol Tartrate 25 mg tablet Discont inued 25 MG PO Twice daily 2022 1:00am October 08, 2024 4:55p m Pyrilamine- Dextrometho rphan (Waldron Dmt) 30-30 mg tablet Discont inued 1 TAB PO Four times daily 2022 1:00am July 19, 2024 10:26 am Buspirone 15 mg tablet Discont inued MG 2022 1:00am July 19, 2024 10:25 am Mometasone (Asmanex Twisthaler) 220 mcg/ actuation (120) aerosol powdr breath activated Discont inued INHALA TI2022 1:00am July 19, 2024 10:28 am Tiotropium- Olodaterol (Stiolto Respimat) 2.5-2.5 mcg/actuati on mist Discont inued INHALA TION 2022 1:00am July 19, 2024 10:28 am Prednisone 10 mg tablet Discont inued 60 MG PO Daily 2022 1:00am July 19, 2024 10:26 am administer with food or milk Albuterol Sulfate (Proventil Hfa) 90 mcg/actuati on HFA aerosol inhaler Active 2 PUFF INHALA TION EVERY 4-6 HOURS as needed for Shortness Of Breath Or Wheezing 2022 1:00am with spacer Complies with drug therapy Tiotropium- Olodaterol (Stiolto Respimat) 2.5-2.5 mcg/actuati on mist Discont inued 2 PUFF INHALA TION Daily July 19, 2024 10:28a m October 08, 2024 4:58p m Mometasone (Asmanex Twisthaler) 220 mcg/ actuation (120) aerosol powdr breath activated Active 2 INH INHALA TION Twice daily July 19, 2024 10:28a m Complies with drug therapy Metoprolol Tartrate 50 mg tablet Active 50 MG PO Twice daily October 08, 2024 12:00a m Complies with drug therapy Atorvastati n 20 mg tablet Active 20 MG PO Bedtime October 08, 2024 12:00a m Unknown Losartan 50 mg tablet Discont inued 50 MG PO Daily October 08, 2024 12:00a m October 17, 2024 12:39 pm Gabapentin 600 mg tablet Active 600 MG PO Every 8 hours October 08, 2024 12:00a m Unknown Hydroxyurea 500 mg Capsule Discont inued 500 MG PO Daily October 16, 2024 12:00a m Octus 2024 3:02p m Acetaminoph en (Acetaminop hen Extra Strength) 500 mg tablet Discont inued 1000 MG PO Every 6 hours October 17, 2024 12:00a m Octob er 2024 12:50 pm Guaifenesin 100 mg/5 mL Liquid Discont inued 100 MG PO Q4H as needed for Cough 70 14 October 17, 2024 12:00a m Augus 2024 1:51p m Cyanocobala min (Vitamin B-12) 1,000 mcg Tablet Active 1000 MCG PO Every morning 30 30 October 17, 2024 12:00a m Unknown Benzonatate 100 mg Capsule Discont inued 100 MG PO Three times daily as needed for Cough 30 October 17, 2024 12:00a m Augus t 2024 1:51p m Oxycodone 5 mg tablet Discont inued 5 MG PO EVERY 4-6 HOURS as needed for pain 02 25October 17, 20242024 2:53p m Omeprazole 40 mg capsule,del ayed release(DR/ EC) Active 40 MG PO Twice daily July 19, 2024 12:00a m Complies with drug therapy Gabapentin 400 mg capsule Discont inued 400 MG PO Three times daily July 19, 2024 12:00a m October 08, 2024 4:57p m Melatonin 5 mg tablet Discont inued 5 MG PO Daily at bedtime July 19, 2024 12:00a m October 08, 2024 4:08p m FreeTextSig: TAKE 1 TABLET BY MOUTH EVERYDAY AT BEDTIME Oral; Note: Source Status: Taking; Refills: 2; Qty: 30 Unspecified; Provider: KIANNA SYKES Amoxicillin -Pot Clavulanate 875-125 mg tablet Discont inued 1 TAB PO Every 12 hours 20 July 19, 2024 12:00a m October 08, 2024 3:33p m Polyethylen e Glycol 3350 (Purelax) 17 gram powder in packet Active 17 GM PO Daily Octobe r 2024 12:00a m Complies with drug therapy Ondansetron Hcl 4 mg tablet Active 4 MG PO Every 8 hours as needed for nausea and vomiting 90 Octobe r 2024 12:00a m Complies with drug therapy Mirtazapine 15 mg tablet Active 0 PO Daily as needed for anorexia [facility] 2024 12:00a m 1/2 tablet at bedtime orally daily and may increase to whole tablet after telephone check in for tolerance Complies with drug therapy Lactulose 10 gram/15 mL solution Active 15 ML PO Daily 450 30 Octobe 2024 12:00a m Complies with drug therapy Olanzapine 5 mg tablet Discont inued 5 MG PO Daily at bedtime October 30, 2024 12:00a m Augus t 2024 4:06p m Hydroxyurea 500 mg capsule Discont inued 500 MG PO .COMPLEX 40 October 30, 2024 3:01pm Augus t 2024 1:11p m 500 mg orally take 1 tab daily 2 tabs on Sunday and Sunday; Potassium Chloride 20 mEq tablet extended release Discont inued MEQ PO October 29, 2024 12:00a m Octob er 2024 12:50 pm Promethazin e 25 mg tablet Discont inued 25 MG PO Three times daily as needed for nausea and vomiting 90 October 29, 2024 12:00a m Octob er 2024 12:52 pm Tramadol 50 mg tablet Discont inued 50 MG PO Every 4 hours as needed for pain 90 October 29, 2024 3:36pm Augus t 2024 4:07p m Procedures Procedure Date Performed Status Urine Culture November 26, 2024 completed US liver November 12, 2024 9:44am complet ed US spleen November 12, 2024 9:44am complet ed CT abdomen pelvis wo con November 25, 2024 8:3 2am completed MR MRCP December 03, 2024 5:43pm comp leted Relevant Diagnostic Tests and/or Laboratory Data Laboratory Results Test Collection Date/Time Result Date/Time Result Interpretation Reference Range Result Comment Performing Site Correcte d White Blood Count November 25, 2024 8:33am November 25, 2024 10:59am 17.4 10*3/uL Above high normal 3.8-11.6 [facility] [id number] [address] [facility] [address] Uncorrec corona WBC Count November 25, 2024 8:33am November 25, 2024 10:59am 17.4 10*3/uL Above high normal 3.8-11.6 [facility] [id number] [address] [facility] [address] Red Blood Count November 25, 2024 8:33am November 25, 2024 10:59am 2.73 10*6/uL Below low normal 3.60-5.00 [facility] [id number] [address] [facility] [address] Hemoglob in November 25, 2024 8:33am November 25, 2024 10:59am 8.0 g/dL Below low normal 11.8-15.4 [facility] [id number] [address] [facility] [address] Hematocr it November 25, 2024 8:33am November 25, 2024 10:59am 24.6 % Below low normal 34.0-46.4 [facility] [id number] [address] [facility] [address] Mean Corpuscu lar Volume November 25, 2024 8:33am November 25, 2024 10:59am 90.2 fL 80-100 [facility] [id number] [address] [facility] [address] Mean Corpuscu lar Hemoglob in November 25, 2024 8:33am November 25, 2024 10:59am 29.1 pg 24.7-34.3 [facility] [id number] [address] [facility] [address] Mean Corpuscu lar Hemoglob in Concent November 25, 2024 8:33am November 25, 2024 10:59am 32.3 g/dL 32.0-35.0 [facility] [id number] [address] [facility] [address] Red Cell Distribu tion Width November 25, 2024 8:33am November 25, 2024 10:59am 21.1 % Above high normal 11.9-15.3 [facility] [id number] [address] [place] [address] Platelet Count November 25, 2024 8:33am November 25, 2024 11:00am 1009 10*3/uL Above upper panic limits 150-450 Critical valueresul t calledat 1100 on 11/25/24 [facility] [id number] [address] [place] [address] Mean Platelet Volume November 25, 2024 8:33am November 25, 2024 10:59am 6.6 fL 6.3-10.7 [facility] [id number] [address] [place] [address] Neutroph ils (%) (Auto) November 25, 2024 8:33am November 25, 2024 2:40pm N/A [facility] [id number] [address] [place] [address] Lymphocy sandra (%) (Auto) November 25, 2024 8:33am November 25, 2024 2:40pm N/A [facility] [id number] [address] [facility] [address] Monocyte s (%) (Auto) November 25, 2024 8:33am November 25, 2024 2:40pm N/A [facility] [id number] [address] [place] [address] Eosinoph ils (%) (Auto) November 25, 2024 8:33am November 25, 2024 2:40pm N/A [facility] [id number] [address] [place] [address] Basophil s (%) (Auto) November 25, 2024 8:33am November 25, 2024 2:40pm N/A [facility] [id number] [address] [place] [address] Nucleate d RBC Relative Count (auto) November 25, 2024 8:33am November 25, 2024 2:40pm N/A [facility] [id number] [address] [facility] [address] Neutroph ils # (Auto) November 25, 2024 8:33am November 25, 2024 2:40pm N/A [facility] [id number] [address] [facility] [address] Lymphocy sandra # (Auto) November 25, 2024 8:33am November 25, 2024 2:40pm N/A [facility] [id number] [address] [facility] [address] Monocyte s # (Auto) November 25, 2024 8:33am November 25, 2024 2:40pm N/A [facility] [id number] [address] [place] [address] Eosinoph ils # (Auto) November 25, 2024 8:33am November 25, 2024 2:40pm N/A [facility] [id number] [address] [place] [address] Basophil s # (Auto) November 25, 2024 8:33am November 25, 2024 2:40pm N/A [facility] [id number] [address] [facility] [address] Segmente d Neutroph ils November 25, 2024 8:33am November 25, 2024 2:40pm 76 % Above high normal 50-70 [facility] [id number] [address] [facility] [address] Lymphocy sandra % November 25, 2024 8:33am November 25, 2024 2:40pm 16 % Below low normal 18-42 [facility] [id number] [address] [place] [address] Monocyte s % November 25, 2024 8:33am November 25, 2024 2:40pm 6 % 2-11 [facility] [id number] [address] [place] [address] Basophil s % November 25, 2024 8:33am November 25, 2024 2:40pm 1 % 0-2 [facility] [id number] [address] [place] [address] Metamyel ocytes % November 25, 2024 8:33am November 25, 2024 2:40pm 1 % Above high normal 0-0 [facility] [id number] [address] [place] [address] Red Blood Cell Morpholo gy November 25, 2024 8:33am November 25, 2024 2:40pm N/A [facility] [id number] [address] [place] [address] Polychro masia November 25, 2024 8:33am November 25, 2024 2:40pm Moderate [facility] [id number] [address] [place] [address] Hypochro masia November 25, 2024 8:33am November 25, 2024 2:40pm Slight [facility] [id number] [address] [place] [address] Poikiloc ytosis November 12, 2024 9:35am November 12, 2024 11:43am Slight [facility] [id number] [address] [place] [address] Anisocyt osis November 25, 2024 8:33am November 25, 2024 2:40pm Moderate [facility] [id number] [address] [place] [address] Microcyt osis November 25, 2024 8:33am November 25, 2024 2:40pm Slight [facility] [id number] [address] [place] [address] Macrocyt osis November 25, 2024 8:33am November 25, 2024 2:40pm Slight [facility] [id number] [address] [place] [address] Crenated Cell November 25, 2024 8:33am November 25, 2024 2:40pm Marked [facility] [id number] [address] [place] [address] Platelet Estimate November 25, 2024 8:33am November 25, 2024 2:40pm Increased Normal [facility] [id number] [address] [place] [address] Platelet Morpholo gy Comment November 25, 2024 8:33am November 25, 2024 2:40pm Normal Normal [facility] [id number] [address] [place] [address] Glucose Level November 25, 2024 8:32am November 25, 2024 11:23am 152 mg/dL Above high normal 70-100 ADA recommende d reference rangeRando m Glucose Reference Range is dependent on time and content of last meal. Glucose of more than 200 mg/dL in a nonstresse d, ambulatory subject supports the diagnosis of Diabetes Mellitus. [facility] [id number] [address] [place] [id number] Blood Urea Nitrogen November 25, 2024 8:32am November 25, 2024 11:23am 15 mg/dL 7-25 [facility] [id number] [address] [place] [id number] Creatini ne November 25, 2024 8:32am November 25, 2024 11:23am 0.51 mg/dL Below low normal 0.60-1.20 [facility] [id number] [address] [place] [id number] Estimate d GFR (CKD-EPI ) November 25, 2024 8:32am November 25, 2024 11:23am > 60.0 mL/Min [facility] [id number] [address] [place] [id number] Sodium Level November 25, 2024 8:32am November 25, 2024 11:23am 133 mmol/L Below low normal 136-145 [facility] [id number] [address] [place] [id number] Potassiu m Level November 25, 2024 8:32am November 25, 2024 11:23am 3.7 mmol/L 3.5-5.1 [facility] [id number] [address] [place] [id number] Chloride Level November 25, 2024 8:32am November 25, 2024 11:23am 99 mmol/L 98-107 [facility] [id number] [address] [place], [place] [id number] Carbon Dioxide Level November 25, 2024 8:32am November 25, 2024 11:23am 21.6 mmol/L 21.0-31.0 [facility] [id number] [address] [place] [id number] Anion Gap November 25, 2024 8:32am November 25, 2024 11:23am 16.1 mEq/L Above high normal 6.0-15.0 [facility] [id number] [address] [place] [id number] Calcium Level November 25, 2024 8:32am November 25, 2024 11:23am 8.8 mg/dL 8.6-10.3 [facility] [id number] [address] [facility] [address] Phosphor us Level October 29, 2024 1:36pm October 29, 2024 4:41pm 4.8 mg/dL Above high normal 2.5-4.5 [facility] [id number] [address] [place] [address] Total Protein November 25, 2024 8:32am November 25, 2024 11:23am 7.0 g/dL 6.4-8.9 [facility] [id number] [address] [facility] [address] Albumin November 25, 2024 8:32am November 25, 2024 11:23am 2.6 g/dL Below low normal 3.5-5.7 [facility] [id number] [address] [facility] [id number] Globulin November 25, 2024 8:32am November 25, 2024 11:23am 4.4 g/dL [facility] [id number] [address] [place], [place] [id number] Albumin/ Globulin Ratio November 25, 2024 8:32am November 25, 2024 11:23am 0.6 [facility] [id number] [address] [place], [place] [id number] Total Bilirubi n November 25, 2024 8:32am November 25, 2024 11:23am 1.0 mg/dL 0.3-1.0 [facility] [id number] [address] [place] [address] Aspartat e Amino Transf (AST/SGO T) November 25, 2024 8:32am November 25, 2024 11:23am 23 U/L 13-39 [facility] [id number] [address] [place], [place] [id number] Alanine Aminotra nsferase (ALT/SGP T) November 25, 2024 8:32am November 25, 2024 11:23am 17 U/L 7-52 [facility] [id number] [address] [place], [place] [id number] Alkaline Phosphat ase November 25, 2024 8:32am November 25, 2024 11:23am 513 U/L Above high normal 34-104 [facility] [id number] [address] [place], [place] [id number] Uric Acid November 12, 2024 9:35am November 12, 2024 11:09am 2.8 mg/dL 2.3-6.6 [facility] [id number] [address] [place], [place] [id number] Pharmacy Creatini ne Clearanc e (Chem November 25, 2024 8:32am November 25, 2024 11:23am 92.68 [facility] [id number] [address] [place], [place] [address] Alkaline Phosphat ase Iso-Live r November 12, 2024 9:35am November 13, 2024 4:09pm 52 % 18-85 [facility] 00 Alkaline Phosphat ase Iso-Bone November 12, 2024 9:35am November 13, 2024 4:09pm 46 % 14-68 [facility] 00 Alkaline Phosphat ase Iso-Inte dao November 12, 2024 9:35am November 13, 2024 4:09pm 2 % 0-18 Performed at: - [facility] [id number] Director: Abel Finnegan PhD, Phone: [phone] [facility] 00 Microbiology Results Procedure Source Result Collection Date/Time Result Date/Time Result Comment Performing Site Urine Culture Urine, Clean-Voided Midstream Klebsiella pneumoniae November 26, 2024 11:14am November 28, 2024 7:51am [facility] [id number] [address] [place], [place] [id number] Diagnostic Imaging Reports Author Abran Matthews [facility] Authored November 12, 2024 4: 23pm Report Dictated Date/Time Dictated By Status Radiology Report November 12, 2024 4:23pm Abran Courtney rd , DO completed [facility] Main [place] [id number] Ultrasound Report Signed Patient: Rylee Merrill MR#: [id number] : 1975 Acct:[id number] Age/Sex: 49 / F ADM Date: 5 Loc: XT Room: Type: [facility] Attending Dr: Charbel Weathers MD Ordering Provider: Charbel Weathers MD Date of Service: 11/12/24 US/US liver: D47.1 - Chronic myeloproliferative disease Copies to: Charbel Weathers MD~ Liver ultrasound HISTORY: Elevated alkaline phosphatase. COMPARISON: CT examination 10/08/2024 Negative ultrasound Croft's sign reported. COMMON BILE DUCT: Normal caliber. No intraluminal abnormality. LIVER CONTOUR: Normal. LIVER PARENCHYMA: Normal echogenicity HEPATIC LESION: None INTRAHEPATIC BILIARY DUCTAL DILATATION No ductal dilatation identified. Cholecystectomy Pancreas: The chest portion unremarkable PORTAL VEIN: Normal blood flow. Liver size: Normal The distal pancreatic head there is concern for adenopathy. I demonstrated with CT examination 10/08/2024. No RIGHT hydronephrosis identified. US/US liver IMPRESSION: No hepatic mass. No biliary duct dilatation. Cholecystectomy. Upper abdominal adenopathy seen with CT examination Impression dictated by: Abran Matthews M.D. 11/12/2024 4:28 PM Dictation Location: [place] [address] Tech: Merlene Messina Transcribed By: MANNY 11/12/24 1628 Dictated By: Abran Matthews DO 11/12/24 1623 Signed By: <Electronically signed by Abran Matthews DO in OV> 11/12/24 1628 Author Abran Matthews [facility] Authored November 12, 2024 4: 28pm Report Dictated Date/Time Dictated By Status Radiology Report November 12, 2024 4:28pm Abran Courtney rd, DO completed [facility] [place] [address] Ultrasound Report Signed Patient: Rylee Merrill MR#: [id number] : 1975 Acct:[id number] Age/Sex: 49 / F ADM Date: 5 Loc: XT Room: Type: [facility] Attending Dr: Charbel Weathers MD Ordering Provider: Charbel Weathers MD Date of Service: 11/12/24 US/US spleen: D47.1 - Chronic myeloproliferative disease Copies to: Charbel Weathers MD~ Ultrasound spleen Spleen has a length of 13.0 cm consistent with borderline splenomegaly. No splenic lesion. No adjacent splenic abnormality. US/US spleen IMPRESSION: Borderline splenomegaly. Impression dictated by: Abran Matthews M.D. 11/12/2024 4:29 PM Dictation Location: [facility] Tech: Merlene Messina Transcribed By: PWS 11/12/24 1629 Dictated By: Abran Matthews DO 11/12/24 1628 Signed By: <Electronically signed by Abran Matthews DO in OV> 11/12/24 1629 Author Iraida Bach [facility] Authored November 25, 2024 10:55am Report Dictated Date/Time Dictated By Status Radiology Report November 25, 2024 10:55am Iraida Bach MD completed [facility] [place] [address] CT Scan Report Signed Patient: Rylee Merrill MR#: [id number] : 1975 Acct:[id number] Age/Sex: 49 / F ADM Date: 5 Loc: Room: Type: [facility] Attending Dr: Charbel Weathers MD Copies to: Charbel Weathers MD~ Ordering Provider: Charbel Weathers MD Date of Service: 11/25/24 CT/CT abdomen pelvis wo con: R11.2 - Nausea with vomiting, unspecified CT ABDOMEN AND PELVIS WITHOUT CONTRAST COMPARISON: 10/08/2024 CLINICAL DATA: Myelofibrosis with organ failure. Upper abdominal pain with nausea and vomiting. Spiral images were obtained through the abdomen and pelvis following oral contrast only due to lack of IV access. This CT exam was performed using one or more following dose reduction techniques: Automated exposure control, adjustment of the mA and/or kV according to patient size, or use of iterative reconstruction technique. Limited cuts through the lung bases show minor atelectasis or scarring. There is a tiny hiatal hernia. Assessment of the intra-abdominal organs is slightly limited by the absence of contrast. The gallbladder is surgically absent. No common duct stones are noted. No intrahepatic masses are seen. The spleen is top normal in size measuring 13.5 cm in craniocaudal dimension. The pancreas shows no acute findings. There is slight left adrenal limb thickening. No renal calculi or hydronephrosis are seen. There is mild atherosclerotic plaque involving the aorta and iliac arteries. Retrocrural and enlarged retroperitoneal lymph nodes are again visualized. No ascites is seen. The small bowel loops are not dilated. Stool is visualized throughout the colon. There are minor degenerative changes at the spine. Mild compression deformity at L1 is again noted. Images through the pelvis show no dilated bowel. The appendix is surgically absent. There is stool at the cecum as well as the distal colon. No diverticular disease is noted. The uterus is slightly levoverted. There are Essure sterilization inserts. No adnexal cysts are present. The urinary bladder is not well distended for evaluation. No ascites is identified. There is mild subcutaneous edema. There are small inguinal lymph nodes. Degenerative change is present at the left SI joint. CT/CT abdomen pelvis wo con IMPRESSION: NO BOWEL OR URINARY TRACT OBSTRUCTION. MODERATE COLONIC STOOL. BORDERLINE SPLENOMEGALY. CONTINUED ABDOMINAL LYMPHADENOPATHY. NO OTHER ACUTE FINDINGS. Impression dictated by: Iraida Bach M.D. 11/25/2024 11:11 AM Dictation Location: [place] [address] Transcribed By: [facility] 11/25/24 1111 Dictated By: Iraida Bach MD 11/25/24 1055 Signed By: <Electronically signed by MD Iraida Bach in OV> 11/25/24 1111 Author Bonilla Higuera [facility] Authored December 03, 2024 8:22pm Report Dictated Date/Time Dictated By Status Radiology Report December 03, 2024 8:22pm Bonilla Higuera MD completed [facility] Main [place] [address] [place] [address] MRI Report Signed Patient: Rylee Merrill MR#: [id number] : 1975 Acct:[id number] Age/Sex: 49 / F ADM Date: 5 Loc: XT Room: Type: [facility] Attending Dr: Charbel Weathers MD Copies to: Charbel Weathers MD~ Ordering Provider: Charbel Weathers MD Date of Service: 12/03/24 MR/MR MRCP: R11.2 - Nausea with vomiting, unspecified MRI OF THE ABDOMEN WITHOUT CONTRAST: CLINICAL HISTORY: Nausea and vomiting, myeloproliferative disorder, leukocytosis COMPARISON: 11/25/2024 CT abdomen pelvis TECHNIQUE: Multisequence, multiplanar imaging of the abdomen was obtained without the use of IV contrast. FINDINGS: No definite intrahepatic biliary ductal dilatation.. Common bile duct poorly evaluated due to artifact and motion. Pancreatic duct not evaluated. Gallbladder absent. Signal void corresponding to cholecystectomy clips noted. The patient terminated examination prior to repeat imaging. Hepatosplenomegaly. Liver 22 cm craniocaudally. Spleen 13.5 cm. Diffusely diminished signal involving the liver and spleen. Bulky adenopathy gastrohepatic ligament adenopathy. Periaortic adenopathy. Multifocal subcentimeter hyperintense involving spleen is a nonspecific finding. Diffusely diminished marrow signal. Right axillary adenopathy. Kidneys unremarkable signal intensity. No hydronephrosis. Pancreas is grossly unremarkable. MR/MR MRCP IMPRESSION: HEPATOSPLENOMEGALY WITH DIFFUSELY DIMINISHED SIGNAL MAY RAISE POSSIBILITY FOR IRON OVERLOAD OR HEMACHROMATOSIS. BILIARY TREE IS NOT WELL EVALUATED ON THIS EXAMINATION. NO DEFINITE HIGH-GRADE BILIARY TREE DILATATION. DIFFUSELY DIMINISHED MARROW CAN BE SEEN WITH REPORTED HISTORY OF MYELOFIBROSIS. BULKY GASTROHEPATIC LIGAMENT ADENOPATHY. RIGHT AXILLARY ADENOPATHY NOTED, CORRELATE WITH MAMMOGRAM AND ULTRASOUND WHEN CLINICALLY FEASIBLE. Impression dictated by: Bonilla Higuera M.D. 12/03/2024 8:45 PM Dictation Location: [place] [address] Transcribed By: [facility] 12/03/242044 Dictated By: Bonilla Higuera MD 12/03/242021 Signed By: <Electronically signed by Bonilla Higuera MD in OV> 12/03/242044 Vital Signs Vital Reading Result Reference Range Collection Date/Time Height 66 [in_i] October 15, 2024 4:33pm Weight 52.80 kg October 17, 2024 6:00am Body Temperature 98.0 [degF] 97.6-99.0 October 17, 2024 12:00pm Heart Rate 103 /min 60-100 October 17, 2024 12:00pm Respiratory rate 22 /min 12-24 Norma 25th, 2025 12:00pm Oxygen saturation by Pulse oximetry 96 % 95-100 October 17, 2024 12:0 0pm BP Systolic 141 mm[Hg] 100-140 October 17, 2024 12:00pm BP Diastolic 81 mm[Hg] 60-100 October 17, 2024 12:00pm Height 66 [in_i] October 29 2:49pm Weight 45.35 kg October 29 2:49pm Body Temperature 97.5 [degF] 97.6-99.0 October 29, 2024 2:49pm Heart Rate 120 /min 60-100 October 29 2:49pm BP Systolic 100 mm[Hg] 100-140 October 29 2:49pm BP Diastolic 68 mm[Hg] 60-100 October 29 2:49pm BMI (Body Mass Index) 16.1 kg/m2 October 29, 2024 2:49pm Height 66 [in_i] October 30 1:47pm Weight 43.99 kg October 30 1:47pm Body Temperature 98 [degF] 97.6-99.0 October 30, 2024 1:47pm Heart Rate 119 /min 60-100 October 30 1:47pm Respiratory rate 18 /min -October 30, 2024 1:47pm Oxygen saturation by Pulse oximetry 98 % 95-100 October 30, 2024 1:4 7pm BP Systolic 106 mm[Hg] 100-140 October 30 1:47pm BP Diastolic 75 mm[Hg] 60-100 October 30 1:47pm BMI (Body Mass Index) 15.6 kg/m2 October 30, 2024 1:47pm Height 66 [in_i] October 30 1:47pm Weight 43.99 kg October 30 1:47pm Height 66 [in_i] December 25 12:47pm Weight 36.28 kg December 25 12:47pm Body Temperature 98.2 [degF] 97.6-99.0 December 12:47pm Heart Rate 142 /min 60-100 December 25 12:47pm BP Systolic 120 mm[Hg] 100-140 December 25 12:47pm BP Diastolic 89 mm[Hg] 60-100 December 25 12:47pm BMI (Body Mass Index) 12.9 kg/m2 Octobe r 2024 12:47pm Advance Directives Advance Directive Response Recorded Date/ Time Advance Directives No April 7:06pm Insurance Providers Guarantor Rylee Merrill Address [address] [facility] [address] Contact Info. Home Phone: Payer Policy Id Subscriber's Name Subscriber Id Effectiv e Date Expiration Date Melvina MITCHELL/BS [id number] Rylee Merrill [id number] Encounters Encounter Location(s) Arrival/Admit Date Discharge /Depart Date Provider(s) Non-patient / [facility] October 08, 2024 1:49pm Gaudencio Abad MD Non-patient / Non-visit [facility] October 15, 2024 12:00am Anitha Sebastian MD Departed Physician/Provi taylor Office Visit [facility] Palliative October 29, 2024 2:25pm October 29, 2024 3:44pm Sam Jacob APRN Departed Physician/Provi taylor Office Visit -[facility] Ambulatory October 30, 2024 1:29pm October 30, 2024 3:04pm Charbel Weathers MD Non-patient / Non-visit -[facility] November 19, 2024 11:02am Charbel Weathers MD Registered Recurring -Cancer Center Acute November 25, 2024 8:33am Charbel Weathers MD Departed Referred -[facility] November 26, 2024 11:14am November 26, 2024 11:15am Sam Bocanegra DO Departed Physician/Provi taylor Office Visit [facility] Palliative December 25, 2024 12:25pm December 25, 2024 1:32pm Sam Jacob APRN Recent Diagnosis Onset Date Admit Date Acute anemia Unknown October 08, 2024 1:49pm Bone pain Unknown October 08, 2024 1:49pm Essential thrombocytosis Unknown October 082024 1:49pm Fever Unknown October 08, 2024 1:49pm Leukocytosis Unknown October 08, 2024 1:49pm Lymphadenopathy Unknown October 08, 2024 1:49pm Pulmonary nodule Unknown October 08, 2024 1:49pm Severe protein-calorie malnutrition Unknown October 08, 2024 1:49pm Thrombocytosis Unknown October 08, 2024 1:49pm MAINOR (acute kidney injury) Unknown September 232024 1:49pm Sepsis Unknown October 08, 2024 1:49pm Cancer associated pain Unknown October 2:25pm Encounter for palliative care Unknown 2024 2:25pm Nausea & vomiting Unknown October 29 2:25pm Acute anemia Unknown October 30, 2024 1:29pm Bone pain Unknown October 30, 2024 1:29pm Essential thrombocytosis Unknown October 30, 2024 1:29pm Fever Unknown October 30, 2024 1:29pm Leukocytosis Unknown October 30, 2024 1:29pm Lymphadenopathy Unknown October 30, 2024 1:29pm Myeloproliferative neoplasm Unknown 2024 1:29pm Severe protein-calorie malnutrition Unknown October 30, 2024 1:29pm Anorexia Unknown December 25 12:25pm Cancer associated pain Unknown December 252024 12:25pm Constipation Unknown December 25 12:25pm Nausea & vomiting Unknown December 25 12:25pm Assessments Diagnosis Onset Date Resolution Status Admit Date Acute anemia acute October 08, 2 025 1:49pm Bone pain acute October 08 1:49pm Essential thrombocytosis acute October 08, 2024 1:49pm Fever acute October 08 1:49pm Leukocytosis acute October 08, 025 1:49pm Lymphadenopathy acute September 1:49pm Pulmonary nodule acute September 1:49pm Severe protein-calorie malnutrition acute October 08, 2024 1:49pm Thrombocytosis acute October 08, 2024 1:49pm MAINOR (acute kidney injury) resolved October 08, 2024 1:49pm Sepsis deleted October 08 1:49pm Cancer associated pain acute [facility] 2024 2:25pm Encounter for palliative care acute October 29, 2024 2:25pm Nausea & vomiting acute October 29, 2024 2:25pm Acute anemia acute October 30, 2024 1:29pm Bone pain acute October 30 1:29pm Essential thrombocytosis acute October 30, 2024 1:29pm Fever acute October 30 1:29pm Leukocytosis acute October 30, 2024 1:29pm Lymphadenopathy acute October 1:29pm Myeloproliferative neoplasm acute October 30, 2024 1:29pm Severe protein-calorie malnutrition acute October 30, 2024 1:29pm Anorexia acute December 25 12:25pm Cancer associated pain acute [facility] 2024 12:25pm Constipation acute December 25, 2024 12:25pm Nausea & vomiting acute December 25, 2024 12:25pm Plan of Treatment Author Lora [facility] Authored December 25, 2024 1: 30pm OARRS reviewed, consistent w ith Rx. OME mg/day Using what she has on hand increase Oxycodone 5 mg to 10 mg q 4-6 hours Start Zofran 4 mg tablet TID instead of ODT Start Miralax BID ROUTINELY Prune juice daily (per patient's choice) Lactulose daily if needed ( will be sent to pharmacy to have on hand) Start trial of Mirtazapine 15 mg using 1/2 tab at bedtime Author Charbel Yeemalia [facility] Authored October 30, 2024 2:5 8pm Adenopathy, axillary, mediastinal, hilar. If BM biopsy nonconclusive, will offer excisional biopsy R axillary node. CTA chest negative at [facility] 10/07/24. 1.3cm JADEN nodule. Similar axillary, surpaclavicular, mediastinal and retroperitoneal adenopathy. I cannot find ct abdomen report from same day. Leukocytosis - BM biopsy 10/10/2024 revealed MPN: Proliferation of megakaryocytes with mild atypia, suspicious for MPN. Hypercellular marrow for age 67% with trilineage hematopoiesis, myeloid left shift increased megakaryocytes with atypia and hypolobated forms, and no increase in blasts. No significant increase in reticulin fibers. Relatively increased erythroid process cells 21% of the sample. Increased storage iron. This is not atypical for CML. He will send BCR-ABL and JAK2 and we will discuss after these have resulted. There was no evidence of HLH, acute leukemia, or plasma cell neoplasm. He also stated that there was much lysis on the aspirates and the smear, touch imprints were able to survive that which is what he is looking at. - [id number] mutation was not detected in the bone marrow. - MPL mutation was not detected on the bone marrow. -Calretinin mutation was not detected in the bone marrow as well. - BCR/ABL translocation was not detected. - Cytogenetics of the bone marrow could not be done because no metaphases were available for chromosomal analysis. -Peripheral blood PNH flow cytometry was negative for any PNH clone. - Peripheral JAK2 with reflex panel were all negative as well on 10/10/2024. I would suggest consideration to start her on hydroxyurea once her renal function is improving. She may benefit more from a Jak2 inhibitor considering splenomegaly, adenopathy, and night sweats. Peripheral blood flow cytometry was negative at last admission per report. will get this record. Anemia Poor epo response secondary to inflammation. JASMYNE negative peripheral smear with no specific abnormal cell types. IRON LOW, will offer iv iron when stabilizes. she was given IV iron infusion during the previous hospitalization at [facility] which might have affected level of ferritin. b12 low normal. folate good. She is likely having ongoing blood loss considering her need for iron repletion. EBV negative, HIV negative, Hep B and C negative. COVID Negative. CMV negative, TB negative. Renal deterioration is profound. uric acid normal. will recheck light chains. Plan Labs since hospitalization revealed WBC 19-19.7. The hemoglobin dropped from 7.2 to now 6.4. LDH is normal. Reticulocyte count is 2.5 slightly elevated. Absolute reticulocyte is 0.071 low. LDH was normal at 219. MCV is 82.8. RDW is high 22. Platelet count is 923-995. Absolute neutrophil count is 14,000. Absolute monocyte count is 2.7 high. Rest of the differential is unremarkable. Lymphocyte count is relatively low. Creatinine is 0.35. Calcium is 8.1 low. LFTs unremarkable and alk phos is 508. Albumin is 2.6. Total protein is 6.4. Pertussis titers, JASMYNE, HIV, hepatitis titers are all pending. TB testing is also pending. With her acute anemia, thrombocytosis and leukocytosis am concerned about lymphoproliferative or myeloproliferative disorders and also concerned about leukemia with her monocytosis as well. My concern is also about HLH as well. Plan: Discussed with Dr. Ku yesterday and recommendation is to proceed with bone marrow biopsy which is scheduled for tomorrow morning under CT guidance. I will order BCR-ABL by PCR also JAK2 with reflex panel. Will also order lipid status to evaluate her triglyceride as triglyceride will be very elevated along with very elevated ferritin in the thousands. Ferritin and iron in her case during this hospitalization came back 1795 elevated iron saturation is low 11.6 iron is low at 13 and TIBC is low at 112. However she was given IV iron infusion during the previous hospitalization at [facility] which might have affected level of ferritin. Bone marrow biopsy path, JAK2 with reflex, BCR/ABL by PCR will probably take about a week to be reported. However if pathology can obtain and await reading about her bone marrow biopsy and if it is showing HLH or acute leukemia then the patient need to be transferred to a tertiary center either [facility] or [facility]. 10/10/2024 Will add on hemolysis labs Attempt to get a wet read on the bone marrow over the weekend or on Sunday to rule out completely rule out HLH or acute leukemia. Recommend following hemoglobin and transfuse PRBC for counts less than 7. 10/13/2024 Order IV iron replacement x1. Close follow of bone marrow results. Spent 20 minutes discussing case and answering questions with patient and her mother. Will follow up with results 10/15/24: I discussed with her the BM bx results and that it revealed MPN likely essential thrombocytosis with increased RBC precursors to 21% as well. I also recommended to start Hydrea while waiting for JAK2 results. Her bone marrow ruled out acute leukemia or lymphoma and no evidence of HLH. Myeloma labs are negative for monoclonal protein or myeloma. Outside Peripheral flow by Dr Chance revealed DNMT low mutation which almost always precedes CHUY 2 mutation. 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 No evidence of myelofibrosis on the bone marrow. 10/30/24: She is here for outpatient follow-up after long admission for fevers diffuse lymphadenopathy anemia thrombocytosis and leukocytosis. Bone marrow biopsy revealed MPN with essential thrombocytosis with DNMT positive whereas JAK2 with reflex panel negative, BCR/ABL was negative. PNH flow cytometry negative. Patient was started on hydroxyurea 500 mg daily and she is here for lab results and toxicity check. Labs on 10/29/2024 revealed WBC improving down from 22,013.4. Hemoglobin still low 7.0 as it was 7.3-7.9. MCV 88.7. Platelet count is 818 still high. Absolute monocyte count is 1.7 mildly elevated where the neutrophil count is 8.7 and the absolute lymphocyte count is normal 2.9. Creatinine is normal calcium normal AST is 50 increased, before alk phos increased 695 compared with prior however total bili is 0.8. Albumin 2.9 slightly better improved from 2.6 and 2.5 before. - She has pain in the sacral bone at site of BMBx. still with some generalized bone pain and daily nausea, zofran did not help. Palliative gave her Phenergan yesterday. - She has very poor appetite. PLAN: Continue Hydroxyuria 500 mg one po daily but make it twice daily on Sunday and Sunday as of 10/30/2024. Needs one unit of PRBC transfusion within 24 hours. Start Zyprexa 5 mg daily for her daily nausea. Stop Phenergan. Obtain ultrasound of the liver and spleen for worsening alk phos. The elevated alk phos is likely due to her MPN bone defect. Will check alk phos isoenzyme next blood work. Start oral B12 1000 mcg daily sine B12 was 216 in the hospital. Follow weekly CBCD and CMP, uric acid as outpatient. Follow up with me in office in 4 weeks. Author Lora Stella [facility] Authored November 05, 2024 3: 14pm Pain assessment Location - bone pain everywhere Timing - constant Quality - deep aching Aggravating/relieving -tramadol helps quite a bit, tolerates well, duration of effect only 3h Impact - interferes with sleep and activity OARRS reviewed, consistent with Rx. Opioid informed consent and agreement reviewed and signed today. Continue Tramadol 50 mg q 3-4 hours PRN with no more than 6 per day - if this does not improve pain control with rotate to a stronger opioid Continue using Tylenol 1000 mg BID Can decrease gabapentin to 400 mg TID or cut 600 mg tablet in half and take 300 mg TID Initiated palliative care to assist with symptom management, clarify goals of care and advanced care plans and to provide additional support Zofran ODT is increasing nausea rather than relieving it; promethazine effective when used in the past Stop Zofran Start promethazine 25 mg TID PRN Future Tests Future scheduled test information is unavailable Pending Tests Test Name Ordered Date Scheduled Date Comprehensive Metabolic Panel October 30, 2024 2 :39pm Comprehensive Metabolic Panel October 30, 2024 2 :39pm Future Visits Future appointment information is unavailable Referrals to Other Providers Reason for Referral Referral Start Date Provider Provider Contact Information Provider Address The office is currently closed. Please call the office for a follow-up appointment. Anitha Sebastian MD Email: [email or web address] Work Phone: [facility] [address] You have been scheduled for a follow up appointment for the following date and time, please call to reschedule if needed. Sam Saldivar MD Work Phone: [phone] [facility] [phone] You have been scheduled for a follow up appointment for the following date and time, please call to reschedule if needed. Charbel Weathers MD Work Phone: [address] [place] [address] Future Procedures Procedure Name Ordered Date Scheduled Date Complete Blood Count Auto Diff October 17, 2024 1 2:40pm 10 Days Consult to Sleep Lab October 08, 2024 3:32pm October 08, 2024 3:32pm Diet Supplement October 08, 2024 6:09pm September 6:09pm Diet Supplement October 09, 2024 1:29pm September 1:29pm Diet Supplement October 08, 2024 6:09pm September 6:09pm Admit Status Order October 08, 2024 2:48pm September 232024 2:48pm Discharge Order October 17, 2024 12:41pm September 12:41pm Consult to Hematology October 08, 2024 3:18pm Gm y 2024 3:18pm Consult to Infectious Diseases October 08, 2024 3 :18pm October 08, 2024 3:18pm Consult to Nephrology October 16, 2024 10:00am Ju ly 2024 10:00am Complete Blood Count Auto Diff October 30, 2024 2:39pm Complete Blood Count Auto Diff October 30, 2024 2:39pm Future Medications Future medication information is unavailable Patient Instructions Instruction Admit Date Hydroxyurea Oxycodone Know your Meds October 08, 2024 1:49pm
--- OUTSIDE RECORDS SUMMARY | 2024-12-26 09:35 | XMS_ITS | Encounter Summary ---
Demographics Address [address] [place] [address] Mobile Phone Home Phone Mobile Phone Preferred Language Korean Marital Status Single Orthodox Affiliation Unknown Race White Ethnic Group Not or Lati no Author Organization [facility] [employer] tem Address [id number] [address] [place] [address] Care Team Providers Care Detail Assembler Name Role Phone No Pcp, No Pcp Primary Care Provider Unavailabl e Reason for Referral * Diagnostic Imaging (Routine) - Closed Specialty Diagnoses / Procedures Referred By Contac t Referred To Contact Radiology Diagnoses MPN (myeloproliferative neoplasm) (CMS-HCC) Lymphadenopathy Procedures PET CT skull [place]el Francis [place] [id number] [place] [address] Phone: tel: fax: Referral ID Status Reason Start Date Expiration Date Visits Re quested Visits Authorized [id number] Closed 12/22/2024 12/22/2025 1 1 Reason for Visit * Auth/Cert (Routine) Specialty Diagnoses / Procedures Referred By Contac t Referred To Contact Diagnoses Chronic myeloproliferative disease Generalized enlarged lymph nodes Procedures PET CT SKULL TO THIGH Referral ID Status Reason Start Date Expiration Date Visits Re quested Visits Authorized [id number] 1 1 Encounter Details Date Type Department Care Team (Latest Contact Info) Description 12/26/2024 9:35 AM EDT - 12/26/2024 11:59 PM EDT Hospital Encounter [facility] [address] [place] [phone] MPN (myeloproliferative neoplasm) (CMS-HCC); Lymphadenopathy Discharge Disposition: [...] mL documented in this encounter Care Teams Detail Assembler Relationship Specialty Start Date End Date No Pcp, No Pcp ROSELIA Naik [id number] PCP - General Family Medicine 05/16/17 documented as of this encounter
--- OUTSIDE RECORDS SUMMARY | 2024-12-30 15:59 | XMS_ITS | Encounter Summary ---
Demographics Address [address] [address] Mobile Phone Home Phone Work Phone Email Address Preferred Language en Marital Status Anglican Affiliation Unknown Race White Ethnic Group Not or Lati no Author Organization [facility] Address [address] [place] [address] Care Team Providers Care School Psychologist Name Role Phone Domi Altamirano OCCUPATIONAL HEALTH NURSE MANAGER Unavailable [phone] Hiren Horton MD Primary Care Provider [phone] Domi Altamirano NP Unavailable [phone] Domi Altamirano NP Unavailable [phone] Unallocated, [facility] Provider Primary Care Provi taylor Encounter Details Date Type Department Care Team (Late st Contact Info) Description 09/22/2024 Orders Only [facility] [address] [place] [address] Nakul Swenson MD [address] [facility] [place] [place] [address] Social History Tobacco Use Types [...] often do you attend roman catholic or mosque serv ices? Never 10/08/2023 Do [...] on filedocumented in this encounter Care Teams School Psychologist Relationship Specialty Start Date End Date Hiren Horton MD PCP - General Family Medicine 07/26/23 10/13/24 Domi Altamirano NP [address] [place] [address] PCP - [place] [employer] 08/24/24 Unallocated, [facility] Mariaelena, [address] [place] [address] PCP - General Family Medicine 10/14/24 Domi Altamirano NP Nurse Practitioner Family Medicine 03/26/22 10/13/24 Domi Altamirano NP Nurse Practitioner Family Medicine 07/26/23 10/13/24 documented as of this encounter
--- OUTSIDE RECORDS SUMMARY | 2024-12-30 15:59 | XMS_ITS | Encounter Summary ---
Demographics Address [address] [facility] [address] [place] [address] Mobile Phone Home Phone Work Phone Email Address Preferred Language en Marital Status Synagogue Affiliation Unknown Race White Ethnic Group Not or Lati no Author Organization [facility] Address [address] [place] [address] Care Team Providers Care Driver Utility Worker Name Role Phone Domi Altamirano NP Unavailable [phone] Hiren Horton MD Primary Care Provider Domi Altamirano WAREHOUSE PACKAGING SUPERVISOR Unavailable [phone] Domi Altamirano NP Unavailable [phone] Unallocated, [facility] Provider Primary Care Provi taylor Encounter Details Date Type Department Care Team (Late st Contact Info) Description 09/22/2024 Abstract [facility] [address] [place] [address] Domi Altamirano, WAREHOUSE PACKAGING SUPERVISOR [address] [place] [address] Social History Tobacco Use Types Packs/Day Years [...] How often do you attend gnosticism or voodoo serv ices? Never 10/08/2023 Do you belong [...] medical care, and heating? Very hard 10/08/2023 [facility] [place] [facility] - Occupational [...] in the past 12 m [facility], were you homeless or living in a [...] on filedocumented in this encounter Care Teams Driver Utility Worker Relationship Specialty Start Date End Date Hiren Horton MD PCP - General Family Medicine 07/26/23 10/13/24 Domi Altamirano NP [address] [place] [address] PCP - [place] [employer] 08/24/24 Unallocated, [facility] Provider, [address] [place] [address] PCP - General Family Medicine 10/14/24 Domi Altamirano NP Nurse Practitioner Family Medicine 03/26/22 10/13/24 Domi Altamirano NP Nurse Practitioner Family Medicine 07/26/23 10/13/24 documented as of this encounter
--- OUTSIDE RECORDS SUMMARY | 2024-12-30 15:59 | XMS_ITS | Encounter Summary ---
Demographics Address [address] [facility] [address] [place] [address] Mobile Phone Home Phone Work Phone Email Address Preferred Language en Marital Status Gnosticist Affiliation Unknown Race White Ethnic Group Not or Lati no Author Organization [facility] Address [address] [place] [address] Care Team Providers Care Thermal Spray Operator Name Role Phone Domi Altamirano NP Unavailable [phone] Hiren Horton MD Primary Care Provider [phone] Domi Altamirano LEASING ASSISTANT Unavailable [phone] Domi Altamirano NP Unavailable [phone] Unallocated, [facility] Provider Primary Care Provi taylor Encounter Details Date Type Department Care Team (Late st Contact Info) Description 09/22/2024 Abstract [facility] [address] [place] [address] Domi Altamirano, LEASING ASSISTANT [address] [place] [id number] Social History Tobacco Use Types Packs/Day Years [...] How often do you attend lutheran or church serv ices? Never 10/08/2023 Do you belong [...] Very hard 10/08/2023 [facility] [place] of Occupat ional Health - Occupational [...] on filedocumented in this encounter Care Teams Thermal Spray Operator Relationship Specialty Start Date End Date Hiren Horton MD PCP - General Family Medicine 07/26/23 10/13/24 Domi Altamirano NP [address] [place] [address] PCP - [place] [employer] 08/24/24 Unallocated, [facility] Provider, [address] [place] [address] PCP - General Family Medicine 10/14/24 Domi Altamirano NP Nurse Practitioner Family Medicine 03/26/22 10/13/24 Domi Altamirano NP Nurse Practitioner Family Medicine 07/26/23 10/13/24 documented as of this encounter
--- OUTSIDE RECORDS SUMMARY | 2024-12-30 15:59 | XMS_ITS | Encounter Summary ---
Demographics Address [address] [facility] [address] [place] [address] Mobile Phone Home Phone Work Phone Email Address Preferred Language en Marital Status Sabianism Affiliation Unknown Race White Ethnic Group Not or Lati no Author Organization [facility] Address [address] [place] [address] Care Team Providers Care Bag Machine Adjuster Name Role Phone Domi Altamirano NP Unavailable [phone] Hiren Horton MD Primary Care Provider Domi Altamirano CISCO ENGINEER Unavailable [phone] Domi Altamirano NP Unavailable [phone] Unallocated, [facility] Provider Primary Care Provi taylor Encounter Details Date Type Department Care Team (Late st Contact Info) Description 09/18/2024 Abstract [facility] [address] [place] [address] Domi Altamirano, CISCO ENGINEER [address] [place] [id number] Social History Tobacco Use Types Packs/Day Years [...] How often do you attend holiness or buddhism serv ices? Never 10/08/2023 Do [...] medical care, and heating? Very hard 10/08/2023 [facility] [place] of Occupat ional Health - Occupational [...] on filedocumented in this encounter Care Teams Bag Machine Adjuster Relationship Specialty Start Date End Date Hiren Horton MD PCP - General Family Medicine 07/26/23 10/13/24 Domi Altamirano NP [address] [place] [address] PCP - [place] [employer] 08/24/24 Unallocated, [facility] Provider, [address] [place] [address] PCP - General Family Medicine 10/14/24 Domi Altamirano NP Nurse Practitioner Family Medicine 03/26/22 10/13/24 Domi Altamirano NP Nurse Practitioner Family Medicine 07/26/23 10/13/24 documented as of this encounter
--- OUTSIDE RECORDS SUMMARY | 2024-12-30 15:59 | XMS_ITS | Encounter Summary ---
Demographics Address [address] [facility] [address] [place] [address] Mobile Phone Home Phone Work Phone Email Address Preferred Language en Marital Status Baptist Affiliation Unknown Race White Ethnic Group Not or Lati no Author Organization [facility] Address [address] [place] [address] Care Team Providers Care Vendor Quality Supervisor Name Role Phone Domi Altamirano NP Unavailable [phone] Hiren Horton MD Primary Care Provider [phone] Domi Altamirano STEELWORKER Unavailable [phone] Domi Altamirano NP Unavailable [phone] Unallocated, [facility] Provider Primary Care Provi taylor Encounter Details Date Type Department Care Team (Late st Contact Info) Description 09/16/2024 Orders Only [facility] [address] [place] [address] Domi Altamirano, STEELWORKER [address] [facility] [place] [address] Social History Tobacco Use Types Packs/Day Years [...] How often do you attend quaker or restoration serv ices? Never 10/08/2023 Do [...] care, and heating? Very hard 10/08/2023 [facility] of Occupat ional Health - Occupational Stress [...] on filedocumented in this encounter Care Teams Vendor Quality Supervisor Relationship Specialty Start Date End Date Hiren Horton MD PCP - General Family Medicine 07/26/23 10/13/24 Domi Altamirano NP [address] [place] [address] PCP - [facility] 08/24/24 Unallocated, [facility] Mariaelena, [address] [place] [address] PCP - General Family Medicine 10/14/24 Domi Altamirano NP Nurse Practitioner Family Medicine 03/26/22 10/13/24 Domi Altamirano NP Nurse Practitioner Family Medicine 07/26/23 10/13/24 documented as of this encounter
--- OUTSIDE RECORDS SUMMARY | 2024-12-30 15:59 | XMS_ITS | Patient Health Record ---
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 Name Role Phone Mansoor Swenson Primary Care Provider [phone] Katerine Chance Unavailable [phone] Allergies Allergen (clinical drug ingredient) Drug/Non Drug Allergy documented on EMR Reaction Allergy Type Onset Date Status prednisone predniSONE Insides Feel Like On Fire Drug Allergy Active Results Component Value Reference Range Notes CBC AUTO DIFF Reviewed date:10/20/2024 01:00:43 PM Interpretation: Performing Lab: Notes/Report: [facility] , White Blood Count 15.4 4.0-11.0 [...] 3/uL Performing Lab: see note ML - [facility] LB PROF 14(COMP METB) Reviewed date:10/20/2024 01:42:51 PM Interpretation: Performing Lab: Notes/Report: [facility] , Sodium 138 136-145 mmol/L Potassium 2.5 3.5-5.1 mmol/L RESULTS JIN D TO JUAN RUBALCAVA CLINICAL TRIAL LEADER at 1320 Chloride 94 98-107 mmol/L Carbon [...] 0.2 Performing Lab: see note ML - [facility] LB CBC AUTO DIFF Reviewed date:12/04/2024 07:07:25 PM Interpretation: Performing Lab: Notes/Report: [facility] , White Blood Count 23.1 4.0-11.0 [...] fL Performing Lab: see note ML - [facility] LB PROF 14(COMP METB) Reviewed date:12/07/2024 12:58:32 PM Interpretation: Performing Lab: Notes/Report: [facility] , Sodium 133 136-145 mmol/L Potassium [...] Performing Lab: see note ML - [facility] LB CBC AUTO DIFF Reviewed date:11/18/2024 08:03:28 PM Interpretation: Performing Lab: Notes/Report: [facility] , White Blood Count 17.0 4.0-11.0 [...] 3/uL Performing Lab: see note ML - [facility] LB LACTATE or LACTIC ACID Reviewed date:09/18/2024 07:21:43 PM Interpretation: Performing Lab: Notes/Report: [facility] , Lactate/Lactic Acid 1.2 0.4-2.0 mmol/L Performing Lab: see note ML - [facility] LB PROF 14(COMP METB) Reviewed date:09/18/2024 07:21:43 PM Interpretation: Performing Lab: Notes/Report: [facility] , Sodium 138 136-145 mmol/L Potassium [...] Globulin Ratio 0.3 Performing Lab: see note [facility] LB T4 Reviewed date:09/18/2024 07:21:43 PM Interpretation: Performing Lab: Notes/Report: Comment use blood [facility] , T4 Thyroxine 6.60 4.80-13.90 ug/dL Performing Lab: see note [facility] LB TSH Reviewed date:09/18/2024 07:21:43 PM Interpretation: Performing Lab: Notes/Report: Comment use blood [facility] , Thyroid Stimulating Hormone 0.751 0.358-3.740 uIU/mL Performing Lab: see note [facility] LB Blood Culture 1 Reviewed date:09/23/2024 07:04:33 PM Interpretation: Performing Lab: Notes/Report: PEDS BOTTLE [facility] , Blood Culture 1 See Below For Report Blood Culture 1 NG5D NO GROWTH AT 5 DAYS.^NO GROWTH AT 5 DAYS. Performing Lab: see note [facility] LB Blood Culture 2 Reviewed date:09/23/2024 07:04:33 PM Interpretation: Performing Lab: Notes/Report: PEDS BOTTLE [facility] , Blood Culture 2 See Below For Report Blood Culture 2 NG5D NO GROWTH AT 5 DAYS.^NO GROWTH AT 5 DAYS. 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 Performing Lab: see note LC - [...] WILL FOLLOW Lower Respiratory Culture Performed at: [facility] Lower Respiratory Culture WILL FOLLOW Lower Respiratory Culture [address] [place], [place] [id number] Lower Respiratory Culture WILL FOLLOW Lower Respiratory Culture Supervisor Dry Cleaning: Abel Finnegan PhD, Phone: [phone] Lower Respiratory Culture WILL FOLLOW Performing Lab: see note LC - [facility] LB SEE REPORT - Patent Paralegal Id information not found for OBX-specific funeral arrangement director legend CBC AUTO DIFF Reviewed date:09/21/2024 01:12:51 PM Interpretation: Performing Lab: Notes/Report: [facility] , White Blood Count 17.4 4.0-11.0 [...] fL Performing Lab: see note ML - [facility] LB PROF 14(COMP METB) Reviewed date:09/21/2024 01:12:51 PM Interpretation: Performing Lab: Notes/Report: [facility] , Sodium 138 136-145 mmol/L Potassium [...] 0.3 Performing Lab: see note ML - [facility] LB Manual Differential Reviewed date:09/21/2024 01:12:51 PM Interpretation: Performing Lab: Notes/Report: [facility] , Segmented Neutrophils % Manual 72.0 [...] Anisocytosis 1+ Performing Lab: see note - [facility] LB B pertussis IgG/M/A Ab Reviewed date:09/23/2024 07:04:33 PM Interpretation: Performing Lab: Notes/Report: [facility] , B pertussis IgG Ab 2.04 0.00-0.94 index Negative <0.95 Equivocal 0.95 - 1.04 Positive >1.04 B pertussis IgM Ab 1.2 0.0-0.9 index Negative <1.0 Borderline 1.0 - 1.1 Positive >1.1 B pertussis IgA Ab 1.1 0.0-0.9 index Negative <1.0 Borderline 1.0 - 1.1 Positive >1.1 Performed at: - [facility] [address] [id number] Supervisor Dry Cleaning: Opal Gibbs MD, Phone: [phone] Performing Lab: see note - [facility] LB XR chest 2V Reviewed date:09/21/2024 01:12:51 PM Interpretation: Performing Lab: Notes/Report: Source Facility: [facility]-[address] [place] [address] [place] [address] XRay Report Signed Patient: RYLEE BURTON MR#: [id number] : 1975 Acct:[id number] Age/Sex: 49 / F ADM Date: 09/15/24 Loc: [place] 202-[address]: Meenakshi Swenson M.D. Ordering Physician: Meenakshi Swenson M.D. Date of Service: 09/19/24 Procedure(s): XR chest 2V Accession Number(s): [id number] cc: Domi Altamirano NP; Meenakshi Swenson M.D. The [address] [address] Patient Name: RYLEE BURTON MRN: [id number] date: 1975 Sex: F Assigned Patient Location: [place] Current Patient Location: [place] Accession/Order Number: [id number] Exam Date: 09/19/2024 09:16 Report Date: 09/19/2024 [...] Bach M.D. 09/19/2024 9:17 AM Dictation Location: [place] [address] Electronically authenticated by: [id number] Y Date: 09/19/2024 09:17 Dictated By: Iraida Bach M.D. Signed By: 09/19/24919 DD/ 6 TD/TT: Tennis Centre Manager: Packed Red Blood Cells Reviewed date:09/21/2024 01:12:51 PM Interpretation: Performing Lab: Notes/Report: Packed Red Blood Cells [id number] OP RC TRANSFUSED 09/20/24 1558 [id number] OP RC TRANSFUSED 09/20/24 1239 Type and Screen Reviewed date:09/21/2024 01:12:51 PM Interpretation: Performing Lab: Notes/Report: [facility] , Blood Type O Positive Antibody Screen NEGATIVE CBC AUTO DIFF Reviewed date:09/21/2024 01:12:51 PM Interpretation: Performing Lab: Notes/Report: [facility] , White Blood Count 24.0 4.0-11.0 [...] Performing Lab: see note ML - [facility] LB CBC AUTO DIFF Reviewed date:09/24/2024 07:13:51 PM Interpretation: Performing Lab: Notes/Report: [facility] , White Blood Count 19.9 4.0-11.0 [...] 9.5-13.5 fL Performing Lab: see note - [facility] LB PROF 14(COMP METB) Reviewed date:09/24/2024 07:13:51 PM Interpretation: Performing Lab: Notes/Report: [facility] , Sodium 137 136-145 mmol/L Potassium [...] Performing Lab: see note ML - [facility] LB Manual Differential Reviewed date:09/24/2024 07:13:51 PM Interpretation: Performing Lab: Notes/Report: [facility] , Segmented Neutrophils % Manual 61.0 [...] Anisocytosis 2+ Performing Lab: see note - [facility] LB CBC AUTO DIFF Reviewed date:10/08/2024 05:20:20 PM Interpretation: Performing Lab: Notes/Report: [facility] , White Blood Count 25.4 4.0-11.0 [...] 9.5-13.5 fL Performing Lab: see note - [facility] LB Erythrocyte Sedimentation Ra te Reviewed date:10/08/2024 05:20:20 PM Interpretation: Performing Lab: Notes/Report: [facility] , Erythrocyte Sedimentation Rate >130 <=20 mm/hr Performing Lab: see note - [facility] LB Manual Differential Reviewed date:10/08/2024 05:20:20 PM Interpretation: Performing Lab: Notes/Report: [facility] , Segmented Neutrophils % Manual 70.0 [...] Performing Lab: see note ML - [facility] LB Reticulocyte Pct Auto Reviewed date:10/08/2024 05:20:20 PM Interpretation: Performing Lab: Notes/Report: [facility] , Reticulocyte Pct Auto 1.34 0.60-3.10 % Performing Lab: see note ML - [facility] LB BNP Reviewed date:10/07/2024 08:47:32 PM Interpretation: Performing Lab: Notes/Report: [facility] , NT Pro B Type Natriuretic Pept 963.0 <=900.0 pg/mL Performing Lab: see note ML - [facility] LB CBC AUTO DIFF Reviewed date:10/07/2024 08:47:32 PM Interpretation: Performing Lab: Notes/Report: [facility] , White Blood Count 27.0 4.0-11.0 [...] Performing Lab: see note ML - [facility] LB D-DIMER Reviewed date:10/07/2024 08:47:32 PM Interpretation: Performing Lab: Notes/Report: [facility] , D Dimer 0.59 <=0.59 mg/L [...] Performing Lab: see note ML - [facility] LB LACTATE or LACTIC ACID Reviewed date:10/07/2024 08:47:32 PM Interpretation: Performing Lab: Notes/Report: [facility] , Lactate/Lactic Acid 0.8 0.4-2.0 mmol/L Performing Lab: see note [facility] LB LIVER PROFILE Reviewed date:10/07/2024 08:47:32 PM Interpretation: Performing Lab: Notes/Report: [facility] , Bilirubin Total 0.9 0.2-1.0 mg/dL Bilirubin Direct 0.5 0.0-0.2 mg/dL Aspartate Amino Transferase 38 15-37 U/L Alanine Aminotransferase 42 14-59 U/L Alkaline Phosphatase 696 46-116 U/L Total Protein 8.3 6.4-8.2 g/dL Albumin Level 1.5 3.4-5.0 g/dL Globulin 6.8 Albumin Globulin Ratio 0.2 Performing Lab: see note [facility] PROF CHEM 8 (BAS METB) Reviewed date:10/07/2024 08:47:32 PM Interpretation: Performing Lab: Notes/Report: [facility] , Sodium 132 136-145 mmol/L Potassium [...] 10.0 8.5-10.1 mg/dL Performing Lab: see note - [facility] LB UA RANDOM W or MICROSCOPIC Reviewed date:10/07/2024 08:47:32 PM Interpretation: Performing Lab: Notes/Report: [facility] , Color Urine DK. ORANGE YELLOW Clarity Urine CLEAR CLEAR Specific [place] Urine 1.020 1.005-1.025 pH Urine 6.0 5.0-9.0 [...] Culture Indicated NO Performing Lab: see note - [facility] LB Blood Culture 1 Reviewed date:10/13/2024 07:21:11 PM Interpretation: Performing Lab: Notes/Report: RIGHT [facility] - [facility] , Blood Culture 1 See Below For Report Blood Culture 1 NG5D NO GROWTH AT 5 DAYS.^NO GROWTH AT 5 DAYS. Performing Lab: see note [facility] LB Blood Culture 2 Reviewed date:10/13/2024 07:21:11 PM Interpretation: Performing Lab: Notes/Report: RIGHT [facility] - [facility] , Blood Culture 2 See Below For Report Blood Culture 2 NG5D NO GROWTH AT 5 DAYS.^NO GROWTH AT 5 DAYS. Performing Lab: see note [facility] LB Troponin I High Sensitivity Reviewed date:10/07/2024 08:47:32 PM Interpretation: Performing Lab: Notes/Report: [facility] , Troponin I High Sensitivity <4.0 4.0-51.3 pg/mL CUT-OFF POINTS HAVE BEEN ESTABLISHED BASED ON THE FOURTH UNIVERSAL DEFINITION OF MYOCARDIAL INFARCTION. THE UPPER REFERENCE LIMIT (URL) OF TROPONIN, DEFINED THE 99TH PERCENTILE OF cTnI DISTRIBUTION IN A REFERENCE POPULATION, HAS BEEN CONFIRMED THE DECISION THRESHOLD FOR SC DIAGNOSIS. 99TH PERCENTILE = 51.4 PG/ML NOTE: HIGH-SENSITIVITY TROPONIN ASSAY IS NOT INTENDED TO BE USED IN ISOLATION BUT SHOULD BE INTERPRETED IN CONJUNCTION WITH OTHER DIAGNOSTIC AND CLINICAL INFORMATION. Performing Lab: see note [facility] LB ECG 12 lead Reviewed date:10/11/2024 03:08:40 PM Interpretation: Performing Lab: Notes/Report: Source Facility: [facility]-[address] [place] [address] [place] [address] Electrocardiograph Report Signed Patient: RYLEE BURTON MR#: [id number] : 1975 Acct:[id number] Age/Sex: 49 / F ADM Date: 10/07/24 Loc: MS 202- Attending Dr: Cynthia Hernandez M.D. Ordering Physician: Genet Nam M.D. 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 Signed By: 10/10/24 0946 DD/ 1757 TD/TT: Tennis Centre Manager: CT head/brain wo con Reviewed date:10/07/2024 08:47:32 PM Interpretation: Performing Lab: Notes/Report: Source Facility: [place] [address] CT Scan Report Signed Patient: RYLEE BURTON MR#: [id number] : 1975 Acct:[id number] Age/Sex: 49 / F ADM Date: 10/07/24 Loc: ER Attending Dr: Ordering Physician: Genet Nam M.D. Date of Service: 10/07/24 Procedure(s): CT head/brain wo con Accession Number(s): [id number] cc: Meenakshi Swenson M.D. [place] [address] Patient Name: RYLEE BURTON MRN: [facility]:[id number] date: 1975 Sex: F Assigned Patient Location: ER Current Patient Location: .MAIN Accession/Order Number: [id number] Exam Date: 10/07/2024 18:52 Report Date: 10/07/2024 [...] Wheatley M.D. 10/07/2024 6:55 PM Dictation Location: [place] [address] Electronically authenticated by: [id number] Y Date: 10/07/2024 18:55 Dictated By: Seven Wheatley M.D. Signed By: 10/07/241857 DD/ 54 TD/TT: Tennis Centre Manager: ECG 12 lead Reviewed date:10/11/2024 03:08:40 PM Interpretation: Performing Lab: Notes/Report: Source Facility: [place] [address] [place] [address] Electrocardiograph Report Signed Patient: RYLEE BURTON MR#: [id number] : 1975 Acct:[id number] Age/Sex: 49 / F ADM Date: 10/07/24 Loc: MS 202-[address]: Cynthia Hernandez M.D. Ordering Physician: Kobe Jonas M.D. 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 Signed By: 10/10/24 0946 DD/ 2152 TD/TT: Tennis Centre Manager: CBC AUTO DIFF Reviewed date:10/08/2024 05:20:19 PM Interpretation: Performing Lab: Notes/Report: [facility] , White Blood Count 22.2 4.0-11.0 [...] 3/uL Performing Lab: see note ML - [facility] Reviewed date:10/08/2024 05:20:19 PM Interpretation: Performing Lab: Notes/Report: [facility] , Creatine Kinase 10 26-192 U/L Performing Lab: see note ML - [facility] LB INFLUENZA A AND B AG Reviewed date:10/08/2024 05:20:19 PM Interpretation: Performing Lab: Notes/Report: [facility] , Influenza Virus A Antigen Negative [...] test. Performing Lab: see note ML - [facility] LB LACTATE or LACTIC ACID Reviewed date:10/08/2024 05:20:19 PM Interpretation: Performing Lab: Notes/Report: [facility] , Lactate/Lactic Acid 0.5 0.4-2.0 mmol/L Performing Lab: see note ML - [facility] LB MAGNESIUM Reviewed date:10/08/2024 05:20:19 PM Interpretation: Performing Lab: Notes/Report: [facility] , Magnesium 2.0 1.8-2.4 mg/dL Performing Lab: see note ML - [facility] LB PHOSPHORUS Reviewed date:10/08/2024 05:20:19 PM Interpretation: Performing Lab: Notes/Report: [facility] , Phosphorus 3.9 2.6-4.7 mg/dL Performing Lab: see note ML - [facility] LB PROF 14(COMP METB) Reviewed date:10/08/2024 05:20:19 PM Interpretation: Performing Lab: Notes/Report: [facility] , Sodium 140 136-145 mmol/L Potassium [...] Performing Lab: see note ML - [facility] LB PTT Reviewed date:10/08/2024 05:20:19 PM Interpretation: Performing Lab: Notes/Report: [facility] , Partial Thromboplastin Time 33.7 22.3-36.2 sec Performing Lab: see note ML - [facility] LB Prothrombin Time INR Reviewed date:10/08/2024 05:20:19 PM Interpretation: Performing Lab: Notes/Report: [facility] , Prothrombin Time 13.5 9.0-11.6 sec INR 1.31 DESIRED INR: 2.0-3.0 CONDITIONS NOT LISTED BELOW 2.5-3.5 FOR PROSTHETIC HEART VALVE REPLACEMENT 2.5-3.5 RECURRENT THROMBOSIS Performing Lab: see note ML - [facility] LB HIV Ab/p24 Ag with Reflex Reviewed date:10/09/2024 05:21:52 PM Interpretation: Performing Lab: Notes/Report: [facility] , HIV Ab/p24 Ag Screen Non Reactive Non Reactive HIV-1/HIV-2 antibodies and HIV-1 p24 antigen were NOT detected. There is no laboratory evidence of HIV infection. HIV Negative Performed at: [address] [id number] Supervisor Dry Cleaning: Abel Finnegan PhD, Phone: [phone] Performing Lab: see note - [facility] LB Acute Hepatitis Reviewed date:10/09/2024 05:21:52 PM [...] exists to indicate HCV infection. Performed at: [address] [id number] Supervisor Dry Cleaning: Abel Finnegan PhD, Phone: [phone] Performing Lab: see note [facility] SARS-CoV-2 Ag* Reviewed date:10/08/2024 05:20:20 PM Interpretation: Performing Lab: Notes/Report: [facility] , SARS-CoV-2 Ag NEGATIVE NEGATIVE This [...] is revoked sooner. Performing Lab: see note - [facility] CT abdomen pelvis w con Reviewed date:10/08/2024 05:20:20 PM Interpretation: Performing Lab: Notes/Report: Source Facility: [facility]-[address] [place] [address] [place] [address] CT Scan Report Signed Patient: RYLEE BURTON MR#: [id number] : 1975 Acct:[id number] Age/Sex: 49 / F ADM Date: 10/07/24 Loc: MS 202-[address]: Cynthia Hernandez M.D. Ordering Physician: Cynthia Hernandez M.D. Date of Service: 10/08/24 Procedure(s): CT abdomen pelvis w con Accession Number(s): [id number] cc: Meenakshi Swenson M.D. [place] [address] Patient Name: RYLEE BURTON MRN: [id number] date: 1975 Sex: F Assigned Patient Location: [place] Current Patient Location: [place] Accession/Order Number: [id number] Exam Date: 10/08/2024 08:22 Report Date: 10/08/2024 [...] Bach M.D. 10/08/2024 8:38 AM Dictation Location: [place] [address] Electronically authenticated by: [id number] Y Date: 10/08/2024 08:38 Dictated By: Iraida Bach M.D. Signed By: 10/08/24 0841 DD/ 0838 TD/TT: Tennis Centre Manager: CBC AUTO DIFF Reviewed date:10/27/2024 01:04:56 PM Interpretation: Performing Lab: Notes/Report: [facility] , White Blood Count 17.3 4.0-11.0 [...] 9.5-13.5 fL Performing Lab: see note - [facility] LB PROF 14(COMP METB) Reviewed date:10/27/2024 01:04:56 PM Interpretation: Performing Lab: Notes/Report: [facility] , Sodium 137 136-145 mmol/L Potassium [...] Performing Lab: see note ML - [facility] LB Manual Differential Reviewed date:10/27/2024 01:04:56 PM Interpretation: Performing Lab: Notes/Report: [facility] , Segmented Neutrophils % Manual 77.0 [...] 3/uL Performing Lab: see note ML - [facility] LB PROF 14(COMP METB) Reviewed date:11/02/2024 07:54:11 PM Interpretation: Performing Lab: Notes/Report: [facility] , Sodium 137 136-145 mmol/L Potassium [...] Performing Lab: see note ML - [facility] LB CBC AUTO DIFF Reviewed date:11/05/2024 12:48:21 PM Interpretation: Performing Lab: Notes/Report: [facility] , White Blood Count 11.9 4.0-11.0 [...] 3/uL Performing Lab: see note ML - [facility] LB Packed Red Blood Cells Reviewed date:11/05/2024 06:22:35 PM Interpretation: Performing Lab: Notes/Report: Packed Red Blood Cells [id number] OP RC TRANSFUSED 11/05/24 1216 [id number] OP RC TRANSFUSED 11/05/24 0920 Type and Screen Reviewed date:11/05/2024 06:22:35 PM Interpretation: Performing Lab: Notes/Report: [facility] , Blood Type O Positive Antibody Screen NEGATIVE CBC AUTO DIFF Reviewed date:11/13/2024 04:23:43 PM Interpretation: Performing Lab: Notes/Report: [facility] , White Blood Count 16.1 4.0-11.0 [...] 3/uL Performing Lab: see note ML - [facility] LB PROF 14(COMP METB) Reviewed date:11/13/2024 04:23:43 PM Interpretation: Performing Lab: Notes/Report: [facility] , Sodium 135 136-145 mmol/L Potassium [...] Performing Lab: see note ML - [facility] LB CBC AUTO DIFF Reviewed date:11/20/2024 05:06:15 PM Interpretation: Performing Lab: Notes/Report: [facility] , White Blood Count 22.7 4.0-11.0 [...] fL Performing Lab: see note ML - [facility] LB PROF 14(COMP METB) Reviewed date:11/20/2024 05:06:15 PM Interpretation: Performing Lab: Notes/Report: [facility] , Sodium 133 136-145 mmol/L Potassium [...] Performing Lab: see note ML - [facility] LB Manual Differential Reviewed date:11/20/2024 05:06:15 PM Interpretation: Performing Lab: Notes/Report: [facility] , Segmented Neutrophils % Manual 79.0 [...] 3/uL Performing Lab: see note ML - [facility] LB Packed Red Blood Cells Reviewed date:11/24/2024 02:07:02 PM Interpretation: Performing Lab: Notes/Report: Packed Red Blood Cells [id number] ON RC TRANSFUSED 11/21/24 1228 [id number] ON RC TRANSFUSED 11/21/24 1037 Type and Screen Reviewed date:11/24/2024 02:07:02 PM Interpretation: Performing Lab: Notes/Report: [facility] , Blood Type O Positive Antibody Screen NEGATIVE BNP Reviewed date:11/27/2024 12:36:13 PM Interpretation: Performing Lab: Notes/Report: [facility] , NT Pro B Type Natriuretic Pept 7757.0 <=900.0 pg/mL RESULTS CALLED TO JOSE ANGEL LAZO RN @BY Lora Davila at 2338 Performing Lab: see note - [facility] LB CBC AUTO DIFF Reviewed date:11/26/2024 01:00:03 PM Interpretation: Performing Lab: Notes/Report: [facility] , White Blood Count 25.4 4.0-11.0 [...] fL Performing Lab: see note ML - [facility] LB LACTATE or LACTIC ACID Reviewed date:11/26/2024 01:00:03 PM Interpretation: Performing Lab: Notes/Report: [facility] , Lactate/Lactic Acid 0.6 0.4-2.0 mmol/L Performing Lab: see note ML - [facility] LB LDH Reviewed date:11/26/2024 01:00:03 PM Interpretation: Performing Lab: Notes/Report: [facility] , Lactate Dehydrogenase 176 81-234 U/L Performing Lab: see note ML - [facility] LB LIPASE Reviewed date:11/26/2024 01:00:03 PM Interpretation: Performing Lab: Notes/Report: [facility] , Lipase <10.0 16.0-77.0 U/L Performing Lab: see note ML - [facility] LB MAGNESIUM Reviewed date:11/26/2024 01:00:03 PM Interpretation: Performing Lab: Notes/Report: [facility] , Magnesium 1.6 1.8-2.4 mg/dL Performing Lab: see note ML - [facility] LB PROF 14(COMP METB) Reviewed date:11/26/2024 01:00:03 PM Interpretation: Performing Lab: Notes/Report: [facility] , Sodium 135 136-145 mmol/L Potassium [...] Ratio 0.2 Performing Lab: see note - [facility] UA RANDOM W or MICROSCOPIC Reviewed date:11/26/2024 01:00:03 PM Interpretation: Performing Lab: Notes/Report: [facility] , Color Urine YELLOW YELLOW Clarity Urine CLEAR CLEAR Specific [place] Urine <=1.005 1.005-1.025 pH Urine 6.0 5.0-9.0 [...] SEEN NONE SEEN #/LPF Urine Culture Indicated YES-[facility] Performing Lab: see note ML - [facility] LB URIC ACID SERUM Reviewed date:11/26/2024 01:00:04 PM Interpretation: Performing Lab: Notes/Report: [facility] , Uric Acid 1.9 2.6-6.0 mg/dL Performing Lab: see note - [facility] LB Blood Culture 1 Reviewed date:12/02/2024 07:45:52 PM Interpretation: Performing Lab: Notes/Report: PEDS BOTTLE [facility] , Blood Culture 1 See Below For Report Blood Culture 1 NG5D NO GROWTH AT 5 DAYS.^NO GROWTH AT 5 DAYS. Performing Lab: see note ML - [facility] LB Blood Culture 2 Reviewed date:12/02/2024 07:45:52 PM Interpretation: Performing Lab: Notes/Report: PEDS BOTTLE [facility] , Blood Culture 2 See Below For Report Blood Culture 2 NG5D NO GROWTH AT 5 DAYS.^NO GROWTH AT 5 DAYS. Performing Lab: see note - [facility] LB Manual Differential Reviewed date:11/26/2024 01:00:04 PM Interpretation: Performing Lab: Notes/Report: [facility] , Segmented Neutrophils % Manual 84.0 [...] 3/uL Anisocytosis 1+ Performing Lab: see note - [facility] LB Packed Red Blood Cells Reviewed date:12/01/2024 07:28:22 PM Interpretation: Performing Lab: Notes/Report: Packed Red Blood Cells [id number] OP RC TRANSFUSED 11/28/24 1010 Type and Screen Reviewed date:12/01/2024 07:28:22 PM Interpretation: Performing Lab: Notes/Report: [facility] , Blood Type O Positive Antibody Screen NEGATIVE Urine Culture - [facility] Reviewed date:11/28/2024 01:05:36 PM Interpretation: Performing Lab: Notes/Report: [facility] , Urine Culture - [facility] See Below For Report Urine Culture - FR Testing performed at [facility] O:BRANDON Isolated Urine Culture - [facility] Dexter Count Organism: 1.1 Antibiotic Interpretation CYNTHIA Status Urine Culture - [facility] [address] [place] [address] Urine Culture - FR Testing performed at [facility] O:KLEPNE Isolated Urine Culture - [facility] Dexter Count Organism: 1.1 Antibiotic Interpretation CYNTHIA Status Urine Culture - [facility] See Below For Report Urine Culture - [facility] Testing performed at [facility] O:KLEPNE Isolated Urine Culture - [facility] Dexter Count Organism: 1.1 Antibiotic Interpretation CYNTHIA Status Urine Culture - [facility] See Below For Report Urine Culture - [facility] Testing performed at [facility] O:KLEPNE Isolated Urine Culture - [facility] Dexter Count Organism: 1.1 Antibiotic Interpretation CYNTHIA Status Urine Culture - [facility] >100,000 Urine Culture - [facility] Testing performed at [facility] O:KLEPNE Isolated Urine Culture - [facility] Dexter Count Organism: 1.1 Antibiotic Interpretation CYNTHIA Status Urine Culture - [facility] See Below For Report Urine Culture - [facility] Testing performed at [facility] O:KLEPNE Isolated Urine Culture - [facility] Dexter Count Organism: 1.1 Antibiotic Interpretation CYNTHIA Status Urine Culture - [facility] Amikacin S F Urine Culture - [facility] Testing performed at [facility] O:KLEPNE Isolated Urine Culture - [facility] Dexter Count Organism: 1.1 Antibiotic Interpretation CYNTHIA Status Urine Culture - [facility] Amoxicillin/Clavula dinesh e S F Urine Culture - [facility] Testing performed at [facility] O:KLEPNE Isolated Urine Culture - [facility] Dexter Count Organism: 1.1 Antibiotic Interpretation CYNTHIA Status Urine Culture - [facility] Aztreonam S F Urine Culture - [facility] Testing performed at [facility] O:KLEPNE Isolated Urine Culture - [facility] Dexter Count Organism: 1.1 Antibiotic Interpretation CYNTHIA Status Urine Culture - [facility] Ceftazidime S F Urine Culture - [facility] Testing performed at [facility] O:KLEPNE Isolated Urine Culture - [facility] Dexter Count Organism: 1.1 Antibiotic Interpretation CYNTHIA Status Urine Culture - [facility] Ceftazidime/Avibact am S F Urine Culture - [facility] Testing performed at [facility] O:KLEPNE Isolated Urine Culture - [facility] Dexter Count Organism: 1.1 Antibiotic Interpretation CYNTHIA Status Urine Culture - [facility] Ceftolozane/Tazobac smalls S F Urine Culture - [facility] Testing performed at [facility] O:KLEPNE Isolated Urine Culture - [facility] Dexter Count Organism: 1.1 Antibiotic Interpretation CYNTHIA Status Urine Culture - [facility] Ciprofloxacin S F Urine Culture - [facility] Testing performed at [facility] O:KLEPNE Isolated Urine Culture - [facility] Dexter Count Organism: 1.1 Antibiotic Interpretation CYNTHIA Status Urine Culture - [facility] Ertapenem S F Urine Culture - [facility] Testing performed at [facility] O:KLEPNE Isolated Urine Culture - [facility] Dexter Count Organism: 1.1 Antibiotic Interpretation CYNTHIA Status Urine Culture - [facility] Gentamicin S F Urine Culture - [facility] Testing performed at [facility] O:KLEPNE Isolated Urine Culture - [facility] Dexter Count Organism: 1.1 Antibiotic Interpretation CYNTHIA Status Urine Culture - [facility] Levofloxacin S F Urine Culture - [facility] Testing performed at [facility] O:KLEPNE Isolated Urine Culture - [facility] Dexter Count Organism: 1.1 Antibiotic Interpretation CYNTHIA Status Urine Culture - [facility] Meropenem S F Urine Culture - [facility] Testing performed at [facility] O:KLEPNE Isolated Urine Culture - [facility] Dexter Count Organism: 1.1 Antibiotic Interpretation CYNTHIA Status Urine Culture - [facility] Meropenem/Vaborbact am S F Urine Culture - [facility] Testing performed at [facility] O:KLEPNE Isolated Urine Culture - [facility] Dexter Count Organism: 1.1 Antibiotic Interpretation CYNTHIA Status Urine Culture - [facility] Nitrofurantoin I F Urine Culture - [facility] Testing performed at [facility] O:KLEPNE Isolated Urine Culture - [facility] Dexter Count Organism: 1.1 Antibiotic Interpretation CYNTHIA Status Urine Culture - [facility] Tetracycline S F Urine Culture - [facility] Testing performed at [facility] O:KLEPNE Isolated Urine Culture - [facility] Dexter Count Organism: 1.1 Antibiotic Interpretation CYNTHIA Status Urine Culture - [facility] Tigecycline S F Urine Culture - [facility] Testing performed at [facility] O:KLEPNE Isolated Urine Culture - [facility] Dexter Count Organism: 1.1 Antibiotic Interpretation CYNTHIA Status Urine Culture - [facility] Tobramycin S F Urine Culture - [facility] Testing performed at [facility] O:KLEPNE Isolated Urine Culture - [facility] Dexter Count Organism: 1.1 Antibiotic Interpretation CYNTHIA Status Urine Culture - [facility] Ampicillin/Sulbacta m S F Urine Culture - [facility] Testing performed at [facility] O:KLEPNE Isolated Urine Culture - [facility] Dexter Count Organism: 1.1 Antibiotic Interpretation CYNTHIA Status Urine Culture - [facility] Cefazolin S F Urine Culture - [facility] Testing performed at [facility] O:KLEPNE Isolated Urine Culture - [facility] Dexter Count Organism: 1.1 Antibiotic Interpretation CYNTHIA Status Urine Culture - [facility] Cefepime S F Urine Culture - [facility] Testing performed at [facility] O:KLEPNE Isolated Urine Culture - [facility] Dexter Count Organism: 1.1 Antibiotic Interpretation CYNTHIA Status Urine Culture - [facility] Ceftriaxone S F Urine Culture - [facility] Testing performed at [facility] O:KLEPNE Isolated Urine Culture - [facility] Dexter Count Organism: 1.1 Antibiotic Interpretation CYNTHIA Status Urine Culture - [facility] Cefuroxime S F Urine Culture - [facility] Testing performed at [facility] O:KLEPNE Isolated Urine Culture - [facility] Dexter Count Organism: 1.1 Antibiotic Interpretation CYNTHIA Status Urine Culture - [facility] Piperacillin/Tazoba cta m S F Urine Culture - [facility] Testing performed at [facility] O:KLEPNE Isolated Urine Culture - [facility] Dexter Count Organism: 1.1 Antibiotic Interpretation CYNTHIA Status Urine Culture - [facility] Trimethoprim/Sulfa S F Urine Culture - [facility] Testing performed at [facility] O:KLEPNE Isolated Urine Culture - [facility] Dexter Count Organism: 1.1 Antibiotic Interpretation CYNTHIA Status Performing Lab: see note ML - [facility] LB SEE REPORT - Patent Paralegal Id information not found 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 Ordering Physician: Cynthia Hernandez M.D. Date of Service: 11/26/24 Procedure(s): XR chest 1V Accession Number(s): [id number] cc: Meenakshi Swenson M.D.; Cynthia Hernandez M.D. [place] [address] Patient Name: RYLEE BURTON MRN: [id number] date: 1975 Sex: F Assigned Patient Location: [place] Current Patient Location: [place] Accession/Order Number: [id number] Exam Date: 11/26/2024 22:28 Report Date: 11/26/2024 [...] Matthews M.D. 11/26/2024 10:54 PM Dictation Location: [place] [address] Electronically authenticated by: [id number] Y Date: 11/26/2024 22:54 Dictated By: Abran Matthews D.O. Signed By: 11/26/242256 DD/ 53 TD/TT: Tennis Centre Manager: CBC AUTO DIFF Reviewed date:11/27/2024 12:36:13 PM Interpretation: Performing Lab: Notes/Report: [facility] , White Blood Count 20.2 4.0-11.0 [...] Performing Lab: see note ML - [facility] MAGNESIUM Reviewed date:11/27/2024 12:36:13 PM Interpretation: Performing Lab: Notes/Report: [facility] , Magnesium 1.7 1.8-2.4 mg/dL Performing Lab: see note ML - [facility] PHOSPHORUS Reviewed date:11/27/2024 12:36:13 PM Interpretation: Performing Lab: Notes/Report: Comment Add to already drawn blood sample this AM [facility] , Phosphorus 6.4 2.6-4.7 mg/dL RESULTS CALLED TO JOSE ANGEL LAZO RN Performing Lab: see note ML - [facility] PROF 14(COMP METB) Reviewed date:11/27/2024 12:36:13 PM Interpretation: Performing Lab: Notes/Report: [facility] , Sodium 142 136-145 mmol/L Potassium [...] 0.1 Performing Lab: see note ML - [facility] VITAMIN D 25 [place] Reviewed date:11/27/2024 12:36:13 PM Interpretation: Performing Lab: Notes/Report: [facility] , Vitamin D 48.0 <20 ng/mL Vit D deficient 20-<30 ng/mL Vit D insufficient 30-100 ng/mL Vit D sufficient >100 ng/mL Potential Toxicity Performing Lab: see note - [facility] LB Manual Differential Reviewed date:11/27/2024 12:36:13 PM Interpretation: Performing Lab: Notes/Report: [facility] , Segmented Neutrophils % Manual 80.0 [...] Stomatocytes 1+ Performing Lab: see note - [facility] LB PTH, Intact Reviewed date:11/28/2024 01:05:36 PM Interpretation: Performing Lab: Notes/Report: [facility] , PTH, Intact 11 15-65 pg/mL Performed at: [address] [id number] Supervisor Dry Cleaning: Abel Finnegan PhD, Phone: [phone] Performing Lab: see note [facility] LB PTHrP (PTH-Related Peptide) Reviewed date:12/02/2024 02:16:34 [...] discordant, please contact the laboratory. Performed at: [facility] [address] [place] [id number] Supervisor Dry Cleaning: Andres Live MD, Phone: [phone] Performing Lab: see note LC - [facility] LB ECG 12 lead Reviewed date:11/27/2024 04:38:38 PM Interpretation: Performing Lab: Notes/Report: Source Facility: [place] [address] Electrocardiograph Report Signed Patient: RYLEE BURTON MR#: [id number] : 1975 Acct:[id number] Age/Sex: 49 / F ADM Date: 11/26/24 Loc: [place] 219-[address]: BENJY GRANADOS D.O. 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 Signed By: 11/27/24 1605 DD/ 1149 TD/TT: Tennis Centre Manager: ANTONIO echo doppler complete Reviewed date:11/27/2024 12:36:13 PM Interpretation: Performing Lab: Notes/Report: Source Facility: [place] [address] [facility] [address] [place] [address] Cardiology Report Signed Patient: RYLEE BURTON MR#: [id number] : 1975 Acct:[id number] Age/Sex: 49 / F ADM Date: 11/26/24 Loc: [place] 219-[address]: BENJY GRANADOS D.O. Ordering Physician: Cynthia Hernandez M.D. Date of Service: 11/27/24 Procedure(s): CA echo doppler complete Accession Number(s): [id number] cc: Meenakshi Swenson M.D.; Cynthia Hernandez M.D. Patient Name: RYLEE BURTON MR#: [id number] : 1975 Exam Date: 11/27/2024 Ordering Doctor: [...] Signed By: 11/27/24 1037 DD/ 1036 TD/TT: Tennis Centre Manager: MAGNESIUM Reviewed date:11/28/2024 01:05:35 PM Interpretation: Performing Lab: Notes/Report: [facility] , Magnesium 1.8 1.8-2.4 mg/dL Performing Lab: see note ML - [facility] LB PHOSPHORUS Reviewed date:11/28/2024 01:05:35 PM Interpretation: Performing Lab: Notes/Report: [facility] , Phosphorus 4.3 2.6-4.7 mg/dL Performing Lab: see note ML - [facility] LB PROF 14(COMP METB) Reviewed date:11/28/2024 01:05:35 PM Interpretation: Performing Lab: Notes/Report: [facility] , Sodium 135 136-145 mmol/L Potassium [...] 0.1 Performing Lab: see note ML - [facility] LB CBC no Diff (Hemogram) Reviewed date:11/28/2024 01:05:36 PM Interpretation: Performing Lab: Notes/Report: [facility] , White Blood Count 20.6 4.0-11.0 10 3/uL Red Blood Count 2.24 4.20-5.40 10 6/uL Hemoglobin 6.4 12.0-16.0 g/dL RESULTS CALLED TO Jaimee Montez RN @BY Gurmeet Rocha MLT at 0543 Hematocrit 21.3 36.0-48.0 % RESULTS CALLED TO Jaimee Montez RN @BY Gurmeet Rocha MLT at 0543 Mean Corpuscular Volume 95.1 81.0-99.0 fL Mean Corpuscular Hemoglobin 28.6 26.7-34.0 pg Mean Corpuscular HGB Conc 30.0 29.9-35.2 g/dL Red Cell Distribution Width 20.5 11.0-15.0 % Platelet Count 928 150-450 10 3/uL Mean Platelet Volume 9.4 9.5-13.5 fL Performing Lab: see note - [facility] LB Manual Differential Reviewed date:12/04/2024 07:07:25 PM Interpretation: Performing Lab: Notes/Report: [facility] , Segmented Neutrophils % Manual 77.0 [...] 3/uL Anisocytosis 1+ Performing Lab: see note - [facility] LB BNP Reviewed date:12/07/2024 12:58:32 PM Interpretation: Performing Lab: Notes/Report: [facility] NT Pro B Type Natriuretic Pept 2763.0 <=900.0 pg/mL RESULTS CALLED TO ROXANNA MANCINI RN Performing Lab: see note - [facility] LB CBC AUTO DIFF Reviewed date:12/07/2024 12:58:32 PM Interpretation: Performing Lab: Notes/Report: [facility] , White Blood Count 26.8 4.0-11.0 [...] RN @BY Gurmeet Rocha MLT at 0153 Mean Platelet Volume 8.7 9.5-13.5 fL Performing Lab: see note - [facility] LB D-DIMER Reviewed date:12/07/2024 12:58:32 PM Interpretation: Performing Lab: Notes/Report: [facility] , D Dimer 1.12 <=0.59 mg/L [...] generalized hospitalization. Performing Lab: see note - [facility] LB LACTATE or LACTIC ACID Reviewed date:12/07/2024 12:58:32 PM Interpretation: Performing Lab: Notes/Report: [facility] , Lactate/Lactic Acid 0.3 0.4-2.0 mmol/L Performing Lab: see note [facility] LB PROF CHEM 8 (BAS METB) Reviewed date:12/07/2024 12:58:32 PM Interpretation: Performing Lab: Notes/Report: [facility] , Sodium 136 136-145 mmol/L Potassium [...] mg/dL Performing Lab: see note ML - [facility] LB Manual Differential Reviewed date:12/07/2024 12:58:32 PM Interpretation: Performing Lab: Notes/Report: [facility] , Segmented Neutrophils % Manual 85.0 [...] 3/uL Performing Lab: see note ML - [facility] LB Troponin I High Sensitivity Reviewed date:12/07/2024 12:58:32 PM Interpretation: Performing Lab: Notes/Report: [facility] , Troponin I High Sensitivity <4.0 4.0-51.3 pg/mL CUT-OFF POINTS HAVE BEEN ESTABLISHED BASED ON THE FOURTH UNIVERSAL DEFINITION OF MYOCARDIAL INFARCTION. THE UPPER REFERENCE LIMIT (URL) OF TROPONIN, DEFINED THE 99TH PERCENTILE OF cTnI DISTRIBUTION IN A REFERENCE POPULATION, HAS BEEN CONFIRMED THE DECISION THRESHOLD FOR SC DIAGNOSIS. 99TH PERCENTILE = 51.4 PG/ML NOTE: HIGH-SENSITIVITY TROPONIN ASSAY IS NOT INTENDED TO BE USED IN ISOLATION BUT SHOULD BE INTERPRETED IN CONJUNCTION WITH OTHER DIAGNOSTIC AND CLINICAL INFORMATION. Performing Lab: see note - [facility] LB UA Micro, reflex to culture Reviewed date:12/07/2024 12:58:32 PM Interpretation: Performing Lab: Notes/Report: [facility] , Color Urine YELLOW YELLOW Clarity Urine CLEAR CLEAR Specific [place] Urine 1.025 1.005-1.025 pH Urine 6.0 5.0-9.0 [...] NO Performing Lab: see note ML - [facility] LB XR chest 1V Reviewed date:12/07/2024 12:58:32 PM Interpretation: Performing Lab: Notes/Report: Source Facility: [place] [address] [place] [address] XRay Report Signed Patient: RYLEE BUROTN MR#: [id number] : 1975 Acct:[id number] Age/Sex: 49 / F ADM Date: 12/05/24 Loc: ER Attending Dr: Ordering Physician: Ellis Payne Date of Service: 12/06/24 Procedure(s): XR chest 1V Accession Number(s): [id number] cc: Ellis Payne; Meenakshi Swenson M.D. [place] [address] Patient Name: RYLEE BURTON MRN: [id number] date: 1975 Sex: F Assigned Patient Location: ER Current Patient Location: ER Accession/Order Number: [id number] Exam Date: 12/06/2024 06:20 Report Date: 12/06/2024 [...] Matthews M.D. 12/06/2024 9:11 AM Dictation Location: [employer] [facility] Electronically authenticated by: [id number] Y Date: 12/06/2024 09:11 Dictated By: Abran Matthews D.O. Signed By: 12/06/24913 DD/ 0 TD/TT: Tennis Centre Manager: Troponin I High Sensitivity Reviewed date:12/07/2024 12:58:32 PM Interpretation: Performing Lab: Notes/Report: [facility] , Troponin I High Sensitivity <4.0 4.0-51.3 pg/mL CUT-OFF POINTS HAVE BEEN ESTABLISHED BASED ON THE FOURTH UNIVERSAL DEFINITION OF MYOCARDIAL INFARCTION. THE UPPER REFERENCE LIMIT (URL) OF TROPONIN, DEFINED THE 99TH PERCENTILE OF cTnI DISTRIBUTION IN A REFERENCE POPULATION, HAS BEEN CONFIRMED THE DECISION THRESHOLD FOR SC DIAGNOSIS. 99TH PERCENTILE = 51.4 PG/ML NOTE: HIGH-SENSITIVITY TROPONIN ASSAY IS NOT INTENDED TO BE USED IN ISOLATION BUT SHOULD BE INTERPRETED IN CONJUNCTION WITH OTHER DIAGNOSTIC AND CLINICAL INFORMATION. Performing Lab: see note ML - [facility] LB CBC AUTO DIFF Reviewed date:12/07/2024 12:58:32 PM Interpretation: Performing Lab: Notes/Report: [facility] , White Blood Count 21.5 4.0-11.0 [...] 3/uL Performing Lab: see note ML - [facility] LB LACTATE or LACTIC ACID Reviewed date:12/07/2024 12:58:32 PM Interpretation: Performing Lab: Notes/Report: [facility] , Lactate/Lactic Acid 0.3 0.4-2.0 mmol/L Performing Lab: see note ML - The [facility] LB PROF 14(COMP METB) Reviewed date:12/08/2024 01:17:47 PM Interpretation: Performing Lab: Notes/Report: [facility] , Sodium 137 136-145 mmol/L Potassium [...] Globulin Ratio 0.2 Performing Lab: see note [facility] LB Manual Differential Reviewed date:12/08/2024 01:17:47 PM Interpretation: Performing Lab: Notes/Report: [facility] , Segmented Neutrophils % Manual 81.0 [...] 10 3/uL Performing Lab: see note - [facility] LB ECG 12 lead Reviewed date:12/08/2024 06:00:03 PM Interpretation: Performing Lab: Notes/Report: Source Facility: [facility]-[address] [place] [address] [place] [address] Electrocardiograph Report Signed Patient: RYLEE BURTON MR#: [id number] : 1975 Acct:[id number] Age/Sex: 49 / F ADM Date: 12/05/24 Loc: ER Attending Dr: Ordering Physician: Maribeth Jenkins Date of Service: 12/08/24 Procedure(s): ECG 12 lead Accession Number(s): [id number] cc: [facility] Test Date: 2024-12-08 Pat Name: RYLEE BURTON Department: Room: - 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 Signed By: 12/08/24 1650 DD/ 0842 TD/TT: Tennis Centre Manager: CBC AUTO DIFF Reviewed date:12/15/2024 08:56:18 PM Interpretation: Performing Lab: Notes/Report: [facility] , White Blood Count 15.5 4.0-11.0 [...] Performing Lab: see note ML - [facility] LB LAB TESTING Reviewed date:12/18/2024 12:47:46 PM Interpretation: Performing Lab: Notes/Report: [id number] von Willebrand Factor (vWF) Profile [facility] , Miscellaneous Test COMMENT . Test Ordered: [id number] von Willebrand Profile Factor VIII Activity 192 [H ] % BN Reference Range: 56-140 FVIII activity can increase in a variety of clinical situations including normal , in samples drawn from patients (particularly children) who are visibly stressed at the time of phlebotomy, as acute phase reactants, or in response to certain drug therapies such as DDAVP. Persistently elevated FVIII activity is a risk factor for venous thrombosis as well as recurrence of venous thrombosis. Risk is graded and increases with the degree of elevation. Although elevated FVIII activity has been identified to cluster within families, a genetic basis for the elevation has not yet been elucidated (Br J Haematol. 2012; 157:653-663). von Willebrand Factor (vWF) Ag 140 % BN Reference Range: 50-200 This test was developed and its performance characteristics determined by [facility]. It has not been cleared or approved by the Food and Drug Administration. vWF Activity 105 % BN Reference Range: 50-200 Interpretation Note [facility] Reference Range: . --------- COAGULATION: VON WILLEBRAND FACTOR ASSESSMENT CURRENT RESULTS ASSESSMENT The VWF:Ag is normal. The VWF:Activity is normal. The FVIII is elevated. VON WILLEBRAND FACTOR ASSESSMENT CURRENT RESULTS INTERPRETATION - These results are not consistent with a diagnosis of von Willebrand Disease. Persistently elevated FVIII activity is a risk factor for venous thrombosis as well as recurrence of venous thrombosis. Risk is graded and increases with the degree of elevation. Although elevated FVIII activity has been identified to cluster within families, a genetic basis for the elevation has not yet been elucidated (Br J Haematol. 2012; 157(6):653-663). VON WILLEBRAND FACTOR ASSESSMENT - Results may be falsely elevated and possibly falsely normal as VWF and FVIII may increase in , in samples drawn from patients (particularly children) who are visibly stressed at the time of phlebotomy, as acute phase reactants, or in response to certain drug therapies such as desmopressin. Repeat testing may be necessary before excluding a diagnosis of VWD especially if the clinical suspicion is high for an underlying bleeding disorder. The setting for phlebotomy should be as calm as possible and patients should be encouraged to sit quietly prior to the blood draw. VON WILLEBRAND FACTOR ASSESSMENT DEFINITIONS - VWD - von Willebrand disease; VWF - von Willebrand factor; VWF:Ag - VWF antigen; VWF:Activity - VWF activity; FVIII - factor VIII activity. - For questions regarding panel interpretation, please contact [facility] at . --------- DISCLAIMER These assessments and interpretations are provided as a convenience in support of the physician-patient relationship and are not intended to replace the physician's clinical judgment. They are derived from national guidelines in addition to other evidence and expert opinion. The clinician should consider this information within the context of clinical opinion and the individual patient. SEE GUIDANCE FOR VON WILLEBRAND FACTOR ASSESSMENT: (1) The National Heart, Lung and Blood [place]. The Diagnosis, Evaluation and Management of von Willebrand Disease. Guy, MD: National Institutes of Health Publication 08-5832. 2007. Available at http://www.nhlbi.nih.g ov/guidelines/vwd/. (2) Keisha CESPEDES et al. Am J Hematol. 2009; 84(6):366-370. (3) Ariel M et al. Haemophilia. 2004;10(3):199-217. (4) Ming GARCIA et al. Haemophilia. 2004; 10(3):218-231. Performed at: [address] [id number] Supervisor Dry Cleaning: Opal Gibbs MD, Phone: [phone] Performed at: [facility] Clinical / Digital [address] [place] [id number] Supervisor Dry Cleaning: Aster Ozuna MD, Phone: [phone] Performed at: [facility] [employer] [id number] Supervisor Dry Cleaning: Abel Finnegan PhD, Phone: [phone] Performing Lab: see note - [facility] LB CBC AUTO DIFF Reviewed date:12/24/2024 05:54:35 PM Interpretation: Performing Lab: Notes/Report: [facility] , White Blood Count 14.9 4.0-11.0 10 3/uL Red Blood Count 2.78 4.20-5.40 10 6/uL Hemoglobin 7.7 12.0-16.0 g/dL Hematocrit 26.5 36.0-48.0 % Mean Corpuscular Volume 95.3 81.0-99.0 fL Mean Corpuscular Hemoglobin 27.7 26.7-34.0 pg Mean Corpuscular HGB Conc 29.1 29.9-35.2 g/dL Red Cell Distribution Width 16.6 11.0-15.0 % Platelet Count 681 150-450 10 3/uL Mean Platelet Volume 9.8 9.5-13.5 fL Neutrophils Percent Auto 64.2 43.0-75.0 % Lymphocytes Percent Auto 25.2 20.5-60.0 % Monocytes Percent Auto 8.9 1.7-12.0 % Eosinophils Percent Auto 0.7 0.9-7.0 % Basophils Percent Auto 0.5 0.2-2.0 % Immature Granulocytes Pct Auto 0.5 0.0-0.5 % Neutrophils Absolute Auto 9.6 1.4-6.5 10 3/uL Lymphocytes Absolute Auto 3.8 1.2-3.8 10 3/uL Monocytes Absolute Auto 1.3 0.3-0.8 10 3/uL Eosinophils Absolute Auto 0.1 0.0-0.7 10 3/uL Basophils Absolute Auto 0.1 0.0-0.1 10 3/uL Immature Granulocytes Abs Auto 0.08 0.00-0.03 10 3/uL Performing Lab: see note ML - [facility] LB PROF 14(COMP METB) Reviewed date:12/24/2024 05:54:35 PM Interpretation: Performing Lab: Notes/Report: [facility] , Sodium 133 136-145 mmol/L Potassium 5.6 3.5-5.1 mmol/L SPECIMEN SLIG HTLY HEMOLYZED, MAY AFFECT ASSAY Chloride 99 98-107 mmol/L Carbon Dioxide 27.0 21.0-32.0 mmol/L Anion Gap 12.6 Glucose 106 74-106 mg/dL Blood Urea Nitrogen 12.0 7.0-18.0 mg/dL Creatinine 0.55 0.55-1.02 mg/dL Estimated GFR ( Fang >60 >=60 mL/min/1.73m 2 Estimated GFR (Non- Lizabeth >60 >=60 mL/min/1.73m 2 BUN Creatinine Ratio 21.8 Calcium 10.1 8.5-10.1 mg/dL Bilirubin Total 0.5 0.2-1.0 mg/dL Aspartate Amino Transferase 28 15-37 U/L Alanine Aminotransferase 19 14-59 U/L Alkaline Phosphatase 523 46-116 U/L Total Protein 8.7 6.4-8.2 g/dL Albumin Level 1.9 3.4-5.0 g/dL Globulin 6.8 Albumin Globulin Ratio 0.3 Performing Lab: see note ML - [facility] LB CT abdomen pelvis wo con Reviewed date:11/26/2024 01:00:04 PM Interpretation: Performing Lab: Notes/Report: Source Facility: [facility]-[address] [place] [address] CT Scan Report Signed Patient: RYLEE BURTON MR#: [id number] : 1975 Acct:[id number] Age/Sex: 49 / F ADM Date: 11/26/24 Loc: ER Attending Dr: Ordering Physician: Alejandro Horowitz Date of Service: 11/26/24 Procedure(s): CT abdomen pelvis wo/w con Accession Number(s): [id number] cc: Meenakshi Swenson M.D. [place] [address] Patient Name: RYLEE BURTON MRN: [id number] date: 1975 Sex: F Assigned Patient Location: ED.MAIN Current Patient Location: ED.MAIN Accession/Order Number: [id number] Exam Date: 11/26/2024 09:35 Report Date: 11/26/2024 [...] Bach M.D. 11/26/2024 10:36 AM Dictation Location: [place] [address] Electronically authenticated by: [id number] Y Date: 11/26/2024 10:36 Dictated By: Iraida Bach M.D. Signed By: 11/26/24 1039 DD/ 1036 TD/TT: Tennis Centre Manager: CT CHEST W CON Reviewed date:11/26/2024 01:00:04 PM Interpretation: Performing Lab: Notes/Report: Source Facility: [facility]-[address] [place] [address] [place] [address] CT Scan Report Signed Patient: RYLEE BURTON MR#: [id number] : 1975 Acct:[id number] Age/Sex: 49 / F ADM Date: 11/26/24 Loc: ER Attending Dr: Ordering Physician: Alejandro Horowitz Date of Service: 11/26/24 Procedure(s): CT chest w con Accession Number(s): [id number] cc: Meenakshi Swenson M.D. [place] [address] [address] [place] [address] Patient Name: RYLEE BURTON MRN: [facility]:[id number] date: 1975 Sex: F Assigned Patient Location: ED.MAIN Current Patient Location: ED.MAIN Accession/Order Number: [id number] Exam Date: 11/26/2024 09:35 Report Date: 11/26/2024 [...] Bach M.D. 11/26/2024 10:36 AM Dictation Location: [place] [address] Electronically authenticated by: [id number] Y Date: 11/26/2024 10:36 Dictated By: Iraida Bach M.D. Signed By: 11/26/24 1039 DD/ 1036 TD/TT: Tennis Centre Manager: CBC AUTO DIFF Reviewed date:11/02/2024 07:54:11 PM Interpretation: Performing Lab: Notes/Report: [facility] , White Blood Count 15.5 4.0-11.0 [...] Performing Lab: see note ML - [facility] LB CT angio chest Reviewed date:10/07/2024 09:58:47 PM Interpretation: Performing Lab: Notes/Report: Source Facility: [facility]-[address] [place] [address] [place] [address] CT Scan Report Signed Patient: RYLEE BURTON MR#: [id number] : 1975 Acct:[id number] Age/Sex: 49 / F ADM Date: 10/07/24 Loc: ER Attending Dr: Ordering Physician: Kobe Jonas M.D. Date of Service: 10/07/24 Procedure(s): CT angio chest Accession Number(s): [id number] cc: Meenakshi Swenson M.D. [place] [id number] Patient Name: RYLEE BURTON MRN: [id number] date: 1975 Sex: F Assigned Patient Location: ER Current Patient Location: ER Accession/Order Number: [id number] Exam Date: 10/07/2024 20:53 Report Date: 10/07/2024 [...] Wheatley M.D. 10/07/2024 9:13 PM Dictation Location: [place] [address] Electronically authenticated by: [id number] Y Date: 10/07/2024 21:13 Dictated By: Seven Wheatley M.D. Signed By: 10/07/242115 DD/ 12 TD/TT: Tennis Centre Manager: ANDRA Qualitative* Reviewed date:10/07/2024 08:47:32 PM Interpretation: Performing Lab: Notes/Report: [facility] , HCG Qualitative NEGATIVE NEGATIVE Performing Lab: see note - [facility] LB Manual Differential Reviewed date:10/07/2024 08:47:32 PM Interpretation: Performing Lab: Notes/Report: [facility] , Segmented Neutrophils % Manual 79.0 [...] Performing Lab: see note ML - [facility] LB DRUG SCREEN RAPID (URINE) Reviewed date:10/07/2024 08:47:32 PM Interpretation: Performing Lab: Notes/Report: [facility] , Cannabinoid Screen Urine POSITIVE NEGATIVE [...] ng/mL Performing Lab: see note ML - [facility] LB PROF 14(COMP METB) Reviewed date:09/21/2024 01:12:51 PM Interpretation: Performing Lab: Notes/Report: [facility] , Sodium 140 136-145 mmol/L Potassium [...] 0.3 Performing Lab: see note ML - [facility] LB CT abdomen pelvis w con Reviewed date:09/21/2024 01:12:51 PM Interpretation: Performing Lab: Notes/Report: Source Facility: [facility]-[address] [place] [address] [place] [address] CT Scan Report Signed Patient: RYLEE BURTON MR#: [id number] : 1975 Acct:[id number] Age/Sex: 49 / F ADM Date: 09/15/24 Loc: [place] 202-[address]: Meenakshi Swenson M.D. Ordering Physician: Meenakshi Swenson M.D. Date of Service: 09/21/24 Procedure(s): CT abdomen pelvis w con Accession Number(s): [id number] cc: Domi Altamirano NP [place] [id number] Patient Name: RYLEE BURTON MRN: [id number] date: 1975 Sex: F Assigned Patient Location: [place] Current Patient Location: [place] Accession/Order Number: [id number] Exam Date: 09/21/2024 10:41 Report Date: 09/21/2024 [...] Higuera M.D. 09/21/2024 10:48 AM Dictation Location: [place] [address] Electronically authenticated by: [id number] Y Date: 09/21/2024 10:48 Dictated By: Bonilla Higuera M.D. Signed By: 09/21/24 1051 DD/ 1048 TD/TT: Tennis Centre Manager: PROF Pope(COMP METB) Reviewed date:09/21/2024 01:12:51 PM Interpretation: Performing Lab: Notes/Report: [facility] , Sodium 140 136-145 mmol/L Potassium [...] Performing Lab: see note ML - [facility] LB LIPASE Reviewed date:09/21/2024 01:12:51 PM Interpretation: Performing Lab: Notes/Report: Comment use am blood for amylase lipase? [facility] , Lipase 22.0 16.0-77.0 U/L Performing Lab: see note ML - [facility] LB CBC AUTO DIFF Reviewed date:09/21/2024 01:12:51 PM Interpretation: Performing Lab: Notes/Report: [facility] , White Blood Count 22.7 4.0-11.0 [...] 3/uL Performing Lab: see note ML - [facility] LB AMYLASE Reviewed date:09/21/2024 01:12:51 PM Interpretation: Performing Lab: Notes/Report: Comment use am blood for amylase lipase? [facility] , Amylase 15 25-115 U/L Performing Lab: see note ML - [facility] LB Manual Differential Reviewed date:09/21/2024 01:12:51 PM Interpretation: Performing Lab: Notes/Report: [facility] , Segmented Neutrophils % Manual 81.0 [...] 1+ Performing Lab: see note ML - [facility] LB PROF 14(COMP METB) Reviewed date:09/21/2024 01:12:51 PM Interpretation: Performing Lab: Notes/Report: [facility] , Sodium 141 136-145 mmol/L Potassium [...] 0.3 Performing Lab: see note ML - [facility] LB CBC AUTO DIFF Reviewed date:09/21/2024 01:12:51 PM Interpretation: Performing Lab: Notes/Report: [facility] , White Blood Count 21.8 4.0-11.0 [...] 9.5-13.5 fL Performing Lab: see note - [facility] CBC AUTO DIFF Reviewed date:12/08/2024 01:17:47 PM Interpretation: Performing Lab: Notes/Report: [facility] , White Blood Count 19.9 4.0-11.0 [...] 9.5-13.5 fL Performing Lab: see note - [facility] LB ECG 12 lead Reviewed date:12/16/2024 03:12:38 PM Interpretation: Performing Lab: Notes/Report: Source Facility: [facility]-[address] [place] [address] [place] [address] Electrocardiograph Report Draft Patient: RYLEE BURTON MR#: [id number] : 1975 Acct:[id number] Age/Sex: 49 / F ADM Date: 12/16/24 Loc: ER Attending Dr: Ordering Physician: Maribeth Jenkins Date of Service: 12/16/24 Procedure(s): ECG 12 lead Accession Number(s): [id number] cc: [facility] Test Date: 2024-12-16 Pat Name: RYLEE BURTNO Department: Room: - 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: 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: : 1975 Requested By: 1854 Order Number: [id number] Reading MD: Measurements Intervals [place] Rate: 119 P: 62 LA: 142 QRS: 77 QRSD: 70 T: 55 QT: 324 QTc: 395 Interpretive Statements 1120 Sinus tachycardia 9140 abnormal rhythm ECG No previous ECG available for comparison Dictated By: Cherie Tamez Signed By: DD/ 1341 TD/TT: Tennis Centre Manager: Reason For Referral Diagnosis 1 Thrombocythemia (D47 .3) Referral Organization [facility] Referring Provider First Name Mansoor Referring Provider Last Name [facility] Referring Provider [facility] Referred Provider Timym Duval Referred Provider Specialty Oncology Referral Priority Routine Reason please schedule lane Diagnosis 1 CHF (congestive hear t failure) (I50.9) Referral Organization [facility] Referring Provider First Name Mansoor Referring Provider Last Name [facility] Referring Provider [facility] Referred Provider [facility] Specialty Cardiology Referral Priority Routine Medications Medication SIG (Take, Route, Frequency, Duration) Notes Start Date End Date Status Glucerna Shake - Drink 237ml Orally three times daily DXE43; Duration: 30 days 90 Bottles for 30 days- needs 21,330 ml for one month 11/18/2024 Active Potassium Chloride ER 20 MEQ 1 tablet with food Orally Once a day; Duration: 90 days HOLDING Active oxyCODONE HCl 5 MG 1 tablet as needed Orally every 6 hrs; Duration: 30 days M54.9 Active Omeprazole 40 MG 1 tablet Oral Twice Daily; Duration: 90 days Active Losartan Potassium 50 MG 1 tablet Orally Once a day; Duration: 90 days Active Cefdinir 300 MG 2 capsule Orally once a day; Duration: 10 days 12/24/2024 Active Albuterol Sulfate HFA 108 (90 Base) MCG/ACT INHALE 2 PUFFS EVERY 6 HOURS IF NEEDED FOR WHEEZING OR SHORTNESS OF BREATH. Inhalation; Duration: 90 Days Active Promethazine HCl 12.5 MG 1 tablet as needed Orally every 6 hrs PRN Active Gabapentin 600 MG TAKE 1/2 TABLET [...] Status W/U Status Risk Notes Problem Cachexia (644604043) Cachexia (R64) Active conf irmed Problem Hypertension (27330007) Hypertension (I10) Active confirmed Problem Asthma (650268013) Asthma (J45.909) Active conf irmed Problem COPD - Chronic obstructive pulmonary disease (45566296) COPD (chronic obstructive pulmonary disease) (J44.9) Active confirmed Problem Congestive heart failure (73026651) CHF (congestive heart failure) (I50.9) Active confirmed Problem Back pain (693537467) Back pain (M54.9) Active confirmed Problem Boil (49058868) Boil (L02.92) Active confirmed Problem Thrombocytopenia (829047542) Thrombocytopenia (D69.6) Active confirmed Problem Thrombocythemia (7453472) Thrombocythemia (D47.3) Active confirmed Problem Pertussis (15345123) Pertussis (A37.90) Active confirmed Problem Myeloproliferative disorder (408005702) Myeloproliferative disorder (D47.1) Active confirmed Problem hypercholesterolemia (disorder) (24422019) Hypercholesteremia (E78.00) Active confirmed Problem Severe malnutrition (57566270) Severe malnutrition (E43) Active confirmed Problem Anemia (981330604) Acute anemia (D64.9) Active confirmed Vital Signs Blood pressure diastolic 68 mm Hg 12/30/2024 Height 66 in 12/30/2024 Blood pressure systolic 104 mm Hg 12/30/2024 Weight 83.6 lbs 12/30/2024 BMI 13.49 kg/m2 12/30/2024 Encounters Encounter Location Date Provider Diagnosis [facility] Oncology [address] [place] [address] 09/30/2024 Katerineshayy Chance [facility] [address] [place] [address] 10/01/2024 Mansoor Rody COPD (chronic obstru ctive pulmonary disease) J44.9 ; Anemia D64.9 and Thrombocythemia D47.3 [facility] [address] [place] [address] 12/01/2024 Mansoor Swenson Hypertension I10 ; C OPD (chronic obstructive pulmonary disease) J44.9 ; Thrombocythemia D47.3 ; Acute anemia D64.9 and Back pain M54.9 [facility] [address] [place] [address] 12/24/2024 Mansoor Hoy Boil L02.[address] [place] [address] [place] [address] 12/30/2024 Mansoor Hoy Boil L02.92 [place] [address] [place] [address] 10/20/2024 Mansoor Rody Acute bronchitis, unspecified organism J20.9 ; Hypertension I10 ; Asthma J45.909 and Myeloproliferative disorder D47.1 [facility] [address] [place] [address] 09/21/2024 Mansoor Rody [facility] [address] [place] [address] 09/23/2024 Mansoor Rody [facility] [address] [place] [address] 09/23/2024 Mansoor Hoy Pertussis A37.90 [place] [address] [place] [address] 09/23/2024 Mansoor Swenson [facility] [address] [place] [facility] [place] [address] 09/24/2024 Mansoor Swenson Acute anemia D64.9 [facility] [address] [place] [facility] [place] [address] 12/29/2024 Mansoor Rodalisa [facility] [address] [place] [facility] [place] [place] [address] 12/07/2024 Mansoor Leela [facility] [address] [place] [facility] [place] [place] [address] 12/12/2024 Mansoor Rodlaisa [facility] [address] [place] [facility] [place] [place] [address] 12/15/2024 Mansoor Swenson [facility] [address] [place] [facility] [place] [address] 12/16/2024 Mansoor Rodalisa [facility] [address] [place] [facility] [place] [place] [address] 12/24/2024 Mansoor Leela [facility] [address] [place] [facility] [place] [place] [address] 12/24/2024 Mansoor Swenson Hyperkalemia E87.5 [facility] [address] [place] [facility] [place] [place] [address] 11/27/2024 Mansoor Swenson [facility] [address] [place] [facility] [place] [place] [address] 11/28/2024 Mansoor Swenson [facility] [address] [place] [facility] [place] [place] [address] 11/28/2024 Mansoor Swenson [facility] [address] [place] [facility] [place] [place] [address] 12/01/2024 Mansoor Swenson Thrombocythemia D47. 3 [facility] [address] [place] [facility] [place] [place] [place] [address] 12/01/2024 Mansoor Swenson CHF (congestive hear t failure) I50.9 [facility] [address] [place] [facility] [place] [place] [address] 12/04/2024 Mansoor Swenson [facility] [address] [place] [address] 11/13/2024 Mansoor Swenson Thrombocythemia D47. 3 [facility] [address] [place] [facility] [place] [place] [address] 11/18/2024 Mansoor alisa [facility] [address] [place] [facility] [place] [place] [address] 11/18/2024 Mansoor Leela [facility] [address] [place] [facility] [place] [place] [address] 11/20/2024 Mansoor alisa [facility] [address] [place] [facility] [place] [place] [address] 11/21/2024 Mansoor alisa [facility] [address] [place] [facility] [place] [place] [address] 11/26/2024 Mansoor alisa [facility] [address] [place] [facility] [place] [place] [address] 10/20/2024 Mansoor Swenson [facility] [address] [place] [facility] [place] [place] [address] 10/27/2024 Mansoor Swenson [facility] [address] [facility] [place] [place] [address] 10/31/2024 Mansoor Marcely Anemia D64.9 and Generalized weakness R53.1 [facility] [address] [place] [facility] [place] [place] [address] 11/02/2024 Mansoor Swenson [facility] [address] [place] [facility] [place] [place] [address] 11/05/2024 Mansoor Swenson [facility] [address] [place] [facility] [place] [place] [address] 11/13/2024 Mansoor Swenson [facility] [address] [place] [facility] [place] [place] [address] 10/03/2024 Mansoor Swenson COPD (chronic obstru ctive pulmonary disease) J44.9 [facility] [facility] [address] [place] [address] 10/07/2024 Mansoor Swenson [facility] [address] [place] [address] 10/11/2024 Mansoor Swenson [facility] [address] [place] [address] 10/20/2024 Mansoor Swenson [facility] [address] [place] [address] 10/20/2024 Mansoor Swenson [facility] [address] [place] [address] 10/20/2024 Mansoor Swenson Assessments Encounter Date Diagnosis [...] vaporizer to help keep the drainage moist. Sutm-rpk-dgqarke Nasal Saline may help the stuffy and runny nose. Use Ibuprofen and or Tylenol as needed for fever, chills, body aches or pain. Children 5 years old should not be given xjug-usd-nqhgukp cough and cold medications such as guaifenesin and dextromethorphan. If you're over age 5, you may try nlqx-wec-fezfljs cold medications such as guaifenesin and dextromethorphan, [...] (chronic obstructive pulmonary disease) (ICD-10 - J44.9) 12/24/2024 Boil (ICD-10 - L02.92) 12/30/2024 Boil (ICD-10 - L02.92) 09/23/2024 Pertussis (ICD-10 - A37.90) 09/24/2024 Acute anemia (ICD-10 - D64.9) 10/03/2024 COPD (chronic obstructive pulmonary disease) (ICD-10 - J44.9) 10/31/2024 Anemia (ICD-10 - D64.9) 10/31/2024 Generalized weakness (ICD-10 - R53.1) 11/13/2024 Thrombocythemia (ICD-10 - D47.3) 12/01/2024 Thrombocythemia (ICD-10 - D47.3) 12/01/2024 CHF (congestive hear t failure) (ICD-10 - I50.9) 12/24/2024 Hyperkalemia (ICD-10 - E87.5) 10/20/2024 Asthma (ICD-10 - J45.909) 10/01/2024 Thrombocythemia (ICD-10 - D47.3) 12/01/2024 Thrombocythemia (ICD-10 - D47.3) 12/01/2024 Acute anemia (ICD-10 - D64.9) 10/20/2024 Myeloproliferative disorder (ICD-10 - D47.1) 12/01/2024 Back pain (ICD-10 - M54.9) Plan Of Treatment Pending Test Test Name Order Date COMPREHENSIVE METABOLIC PROFILE WITH GFR 10/31/2024 BMP - Basic Metabolic Panel 12/24/2024 CMP - Comprehensive Metabolic Panel 03/2024 CBC W/AUTO DIFF 09/23/2024 CBC W/AUTO DIFF 10/31/2024 CBC AUTO DIFF 09/24/2024 CULTURE WOUND 12/30/2024 PROF 14(COMP METB) 09/24/2024 Insurance Providers Payer Name Payer Address Payer Phone Subscriber Number Group Number Insured Name Patient Relationship to Insured Coverage Start Date Coverage End Date [employer] [address] [place] [address] [id number] Rylee Burton Self - patient is the insured Medications Administered Medication Instructions Date of Administration Dosage Notes Ketorolac Tromethamine 10/01/2024 60 mg Orphenadrine Citrate 10/01/2024 60 mg Medical (General) History Medical History History ICD Code Hypertension I10 Asthma J45.909 COPD (chronic obstructive pulmonary dise ase) J44.9 Anemia D64.9 Hypercholesteremia E78.00 Surgical History Surgery Date(Month/Year) Appendectomy Gall Bladder Removal Tubal Clavical Bone Marrow Biopsy Exploratory Hospitalization History Reason Date(Month/Year) abd pain 12/18 [facility]/ Myeloproliferative Neoplasms 09/2024 Anemia, Weakness 08/2024
--- OUTSIDE RECORDS SUMMARY | 2024-12-30 15:59 | XMS_ITS | Encounter Summary ---
Demographics Address [address] [facility] [address] [place] [address] Mobile Phone Home Phone Work Phone Email Address Preferred Language en Marital Status Nondenominational Affiliation Unknown Race White Ethnic Group Not or Lati no Author Organization [facility] Address [address] [place] [address] Care Team Providers Care Shop Estimator Name Role Phone Domi Altamirano NP Unavailable [phone] Hiren Horton MD Primary Care Provider [phone] Domi Altamirano CHAIR FINISHER Unavailable [phone] Domi Altamirano NP Unavailable [phone] Unallocated, Noms Provider Primary Care Provi taylor Encounter Details Date Type Department Care Team (Late st Contact Info) Description 09/17/2024 Abstract [facility] [address] [place] [address] Domi Altamirano, CHAIR FINISHER [address] [place] [address] Social History Tobacco Use Types Packs/Day Years [...] How often do you attend latter-day or confucianist serv ices? Never 10/08/2023 Do you belong [...] heating? Very hard 10/08/2023 [facility] [place] of Occupat ional Health - Occupational Stress [...] any time in the past 12 m [facility], were you homeless or living in [...] on filedocumented in this encounter Care Teams Shop Estimator Relationship Specialty Start Date End Date Hiren Horton MD PCP - General Family Medicine 07/26/23 10/13/24 Domi Altamirano NP [address] [place] [address] PCP - [employer] [employer] 08/24/24 Unallocated, Noms Provider, [address] [place] [address] PCP - General Family Medicine 10/14/24 Domi Altamirano NP Nurse Practitioner Family Medicine 03/26/22 10/13/24 Domi Altamirano NP Nurse Practitioner Family Medicine 07/26/23 10/13/24 documented as of this encounter
--- OUTSIDE RECORDS SUMMARY | 2024-12-30 15:59 | XMS_ITS | Encounter Summary ---
Demographics Address [address] [facility] [address] [place] [address] Mobile Phone Home Phone Work Phone Email Address Preferred Language en Marital Status Jain Affiliation Unknown Race White Ethnic Group Not or Lati no Author Organization [facility] Address [address] [place] [address] Care Team Providers Care Rotary Surface Grinder Name Role Phone Domi Altamirano NP Unavailable [phone] Hiren Horton MD Primary Care Provider [phone] Domi Altamirano HOT BRAIDER Unavailable [phone] Domi Altamirano NP Unavailable [phone] Unallocated, Noms Provider Primary Care Provi taylor Encounter Details Date Type Department Care Team (Late st Contact Info) Description 09/17/2024 Abstract [facility] [address] [place] [address] Domi Altamirano, HOT BRAIDER [address] [place] [address] Social History Tobacco Use Types Packs/Day Years [...] How often do you attend congregational or restorationist serv ices? Never 10/08/2023 Do [...] medical care, and heating? Very hard 10/08/2023 [facility] of Occupat ional Health - Occupational Stress [...] any time in the past 12 m [facility], were you homeless or living in a intermediate (including now)? Yes 10/08/2023 Comments Unknown Sex and Gender Information Value Date Recorded Sex Assigned at Not on file Legal Sex Female 6:59 PM EDT Gender Identity Not on file Sexual Orientation Not on file documented as of this encounter Plan of Treatment Not on file documented as of this encounter Visit Diagnoses Not on filedocumented in this encounter Care Teams Rotary Surface Grinder Relationship Specialty Start Date End Date Hiren Horton MD PCP - General Family Medicine 07/26/23 10/13/24 Domi Altamirano NP [address] [place] [address] PCP - [place] [address] [employer] 08/24/24 Unallocated, Noms Provider, [address] [place] [address] PCP - General Family Medicine 10/14/24 Domi Altamirano NP Nurse Practitioner Family Medicine 03/26/22 10/13/24 Domi Altamirano NP Nurse Practitioner Family Medicine 07/26/23 10/13/24 documented as of this encounter
--- OUTSIDE RECORDS SUMMARY | 2024-12-30 15:59 | XMS_ITS | Encounter Summary ---
Demographics Address [address] [facility] [address] [place] [address] Mobile Phone Home Phone Work Phone Email Address Preferred Language en Marital Status Adventism Affiliation Unknown Race White Ethnic Group Not or Lati no Author Organization [facility] Address [address] [place] [address] Care Team Providers Care Aoc Director Intelligence Officer Name Role Phone Domi Altamirano NP Unavailable [phone] Hiren Horton MD Primary Care Provider Domi Altamirano HOME SUPPORT WORKER Unavailable [phone] Domi Altamirano NP Unavailable [phone] Unallocated, Noms Provider Primary Care Provi taylor Encounter Details Date Type Department Care Team (Late st Contact Info) Description 09/16/2024 Abstract [facility] [address] [place] [address] Domi Altamirano, HOME SUPPORT WORKER [address] [place] [address] Social History Tobacco Use Types Packs/Day Years [...] declined 10/08/2023 How often do you attend gnosticist or lutheran serv ices? Never 10/08/2023 Do you belong to any clubs o r organizations such as gnosticist groups, unions, fraternal or athletic groups, or [...] medical care, and heating? Very hard 10/08/2023 [facility] [place] of Occupat ional Health - Occupational [...] in the past 12 m [facility], were you homeless or living in [...] on filedocumented in this encounter Care Teams Aoc Director Intelligence Officer Relationship Specialty Start Date End Date Hiren Horton MD PCP - General Family Medicine 07/26/23 10/13/24 Domi Altamirano NP [address] [place] [address] PCP - [place] [employer] 08/24/24 Unallocated, Noms Provider, [address] [place] [address] PCP - General Family Medicine 10/14/24 Domi Altamirano NP Nurse Practitioner Family Medicine 03/26/22 10/13/24 Domi Altamirano NP Nurse Practitioner Family Medicine 07/26/23 10/13/24 documented as of this encounter
--- OUTSIDE RECORDS SUMMARY | 2024-12-30 15:59 | XMS_ITS | Encounter Summary ---
Demographics Address [address] [facility] [address] [place] [address] Mobile Phone Home Phone Work Phone Email Address Preferred Language en Marital Status Taoism Affiliation Unknown Race White Ethnic Group Not or Lati no Author Organization [facility] Address [address] [place] [address] Care Team Providers Care Rougher Operator Name Role Phone Domi Altamirano NP Unavailable [phone] Hiren Horton MD Primary Care Provider Domi Altamirano TABLE ATTENDANT Unavailable [phone] Domi Altaimrano NP Unavailable [phone] Unallocated, Noms Provider Primary Care Provi taylor Encounter Details Date Type Department Care Team (Late st Contact Info) Description 09/23/2024 Abstract [facility] [address] [place] [address] Domi Altamirano, TABLE ATTENDANT [address] [facility] [place] [address] Social History Tobacco Use Types Packs/Day Years [...] How often do you attend muslim or yarsanism serv ices? Never 10/08/2023 Do [...] Very hard 10/08/2023 [facility] [place] of Occupat ional Health - Occupational Stress [...] on filedocumented in this encounter Care Teams Rougher Operator Relationship Specialty Start Date End Date Hiren Horton MD PCP - General Family Medicine 07/26/23 10/13/24 Domi Altamirano NP [address] [place] [address] PCP - [place] [employer] 08/24/24 Unallocated, Noms Provider, [address] [place] [address] PCP - General Family Medicine 10/14/24 Domi Altamirano NP Nurse Practitioner Family Medicine 03/26/22 10/13/24 Domi Altamirano NP Nurse Practitioner Family Medicine 07/26/23 10/13/24 documented as of this encounter
--- OUTSIDE RECORDS SUMMARY | 2024-12-30 15:59 | XMS_ITS | Encounter Summary ---
Demographics Address [address] [facility] [address] [place] [address] Mobile Phone Home Phone Work Phone Email Address Preferred Language en Marital Status Tenriism Affiliation Unknown Race White Ethnic Group Not or Lati no Author Organization [facility] Address [address] [place] [address] Care Team Providers Care Security Installation Technician Name Role Phone Domi Altamirano RAISIN SEPARATOR OPERATOR Unavailable [phone] Hiren Horton MD Primary Care Provider [phone] Domi Altamirano RAISIN SEPARATOR OPERATOR Unavailable [phone] Domi Altamirano NP Unavailable [phone] Unallocated, Noms Provider Primary Care Provi taylor Encounter Details Date Type Department Care Team (Late st Contact Info) Description 09/17/2024 Orders Only [facility] [address] [facility] [place] [address] Li Ku MD [address] [place] [address] Social History Tobacco Use Types Packs/Day [...] How often do you attend taoist or lutheran serv ices? Never 10/08/2023 Do [...] and heating? Very hard 10/08/2023 [facility] of Occupat ional Health - Occupational Stress [...] the past 12 m [facility], were you homeless or living in a [...] on filedocumented in this encounter Care Teams Security Installation Technician Relationship Specialty Start Date End Date Hiren Horton MD PCP - General Family Medicine 07/26/23 10/13/24 Domi Altamirano NP [address] [place] [address] PCP - [place] [employer] 08/24/24 Unallocated, Carol Ann Ferrell MD [address] [place] [address] PCP - General Family Medicine 10/14/24 Domi Altamirano NP Nurse Practitioner Family Medicine 03/26/22 10/13/24 Domi Altamirano NP Nurse Practitioner Family Medicine 07/26/23 10/13/24 documented as of this encounter
--- OUTSIDE RECORDS SUMMARY | 2024-12-30 15:59 | XMS_ITS | Encounter Summary ---
Demographics Address [address] [facility] [address] [place] [address] Mobile Phone Home Phone Email Address Preferred Language ENG Marital Status Single Yarsani Affiliation Unknown Race White Ethnic Group Not or Lati no Author Organization [facility] Address [address] [place] [address] Care Team Providers Care Electric Sign Assembler Name Role Phone Lizzette Malik CNP Primary Care Provider [phone] Domi Altamirano MECHANICAL APPLICATIONS ENGINEER Unavailable Source Comments In the event this information is protected by the Federal Confidentiality of Alcohol and Drug AbusePatient Records regulations: The Federal rules restrict any use of the information to criminally investigate or prosecute any alcohol or drug abuse patient.[facility] Reason for Visit * Reason Comments Radiology CT Encounter Details Date Type Department Care Team (Late st Contact Info) Description 06/20/2017 Radiology Radiology [address] [place] [address] Lizzette Malik, MECHANICAL APPLICATIONS ENGINEER [address] [place] [address] Social History Tobacco Use Types [...] on filedocumented in this encounter Care Teams Electric Sign Assembler Relationship Specialty Start Date End Date Lizzette Malik CNP PCP - General Family Medicine 12/04/14 Domi Altamirano CNP Referring Family Medicine 10/14/21 documented as of this encounter
--- OUTSIDE RECORDS SUMMARY | 2024-12-30 15:59 | XMS_ITS | Clinical Summary ---
Demographics Address [address] [facility] [address] [place] [address] Mobile Phone Home Phone Email Address Preferred Language ENG Marital Status Single Church Affiliation Unknown Race White Ethnic Group Not or Lati no Author Organization [facility] Address [address] [place] [address] Care Team Providers Care Neon Pumper Name Role Phone Lizzette Malik CYBER SOFTWARE ENGINEER Primary Care Provider [phone] Domi Altamirano CYBER SOFTWARE ENGINEER Unavailable [phone] Allergies Active Allergy Reactions Criticality Noted Date [...] Care Team Description 12/08/2024 Patient Update Hematology/Oncology [address] [place] [address] Self from Last 3 Months Social History [...] Lipid Screening 08/23/2020 Sigmoidoscopy 08/23/2020 Covid-19 Vaccine (1 - 2024-2 6 season) 2024 Influenza Vaccine (#1) 2024 Diabetes Screening 07/23/2027 [...] Recently Relevant to Health Maintenance Results * NE-MR MRCP IMPORT (12/03/2024) Anatomical Region Laterality Modality Other 12/03/2024 Narrative 12/08/2024 2:54 PM EDT Images were obtained outside of [facility] Procedure Note Provider, [facility] [place] - 12/08/2024 Images were obtained outside of [facility] Provider MRI Final Result * CT-CT abdomen pelvis wo con IMPORT (11/25/2024) Anatomical Region Laterality Modality Other 11/25/2024 Narrative 12/08/2024 2:54 PM EDT Images were obtained outside of [facility] Procedure Note Provider, [facility] [place] - 12/08/2024 Images were obtained outside of [facility] Provider RADIOLOGY Final Result * US-US spleen IMPORT (11/12/2024) Anatomical Region Laterality Modality Other 11/12/2024 Narrative 12/08/2024 2:56 PM EDT Images were obtained outside of [facility] Procedure Note Provider, [facility] [place] - 12/08/2024 Images were obtained outside of [facility] Provider RADIOLOGY Final Result * US-US liver IMPORT (11/12/2024) Anatomical Region Laterality Modality Other 11/12/2024 Narrative 12/08/2024 2:54 PM EDT Images were obtained outside of [facility] Procedure Note Provider, [facility] [place] - 12/08/2024 Images were obtained outside of [facility] Provider RADIOLOGY Final Result * CT-CT guided bone marrow bx/aspir IMPORT (10/10/2024) Anatomical Region Laterality Modality Other 10/10/2024 Narrative 12/08/2024 3:01 PM EDT Images were obtained outside of [facility] Procedure Note Provider, [facility] [place] - 12/08/2024 Images were obtained outside of [facility] Provider RADIOLOGY Final Result * (ABNORMAL) COMP METABOLIC PANEL (06/19/2017 10:35 PM EDT) Pathologist [facility] Protein, Total 6.9 6.3 - 8.0 g/dL 06/19/2017 11:09 PM EDT [facility] Albumin 4.4 3.9 - 4.9 g/dL 06/19/2017 11:09 PM EDT [facility] Calcium 9.4 8.5 - 10.2 mg/dL 06/19/2017 11:09 PM EDT [facility] Bilirubin, Total <0.2(L) 0.2 - 1.3 mg/dL 06/19/2017 11:09 PM EDT [facility] Alkaline Phosphatase 64 32 - 117 U/L 06/19/2017 11:09 PM EDT [facility] AST 11(L) 13 - 35 U/L 06/19/2017 11:09 PM EDT [facility] Glucose 100(H) 74 - 99 mg/dL 06/19/2017 11:09 PM EDT [facility] Comment: The [place] Diabetes Association (ADA) provides guidance for cutoff [...] Standards of Medical Care in Diabetes 2016, [place] Diabetes Association. Diabetes Care. 2016.39(Suppl 1). BUN 11 7 - 21 mg/dL 06/19/2017 11:09 PM EDT [facility] Creatinine 0.75 0.58 - 0.96 mg/dL 06/19/2017 11:09 PM EDT [facility] Sodium 138 136 - 144 mmol/L 06/19/2017 11:09 PM EDT [facility] Potassium 4.0 3.7 - 5.1 mmol/L 06/19/2017 11:09 PM T [facility] Chloride 103 97 - 105 mmol/L 06/19/2017 11:09 PM T [facility] CO2 24 22 - 30 mmol/L 06/19/2017 11:09 PM T [facility] Anion Gap 11 9 - 18 mmol/L 06/19/2017 11:09 PM [facility] ALT 11 7 - 38 U/L 06/19/2017 11:09 PM [facility] eGFR- >60 06/19/2017 11:09 PM [facility] eGFR-All Other Races >60 . 06/19/2017 11:09 PM [facility] Comment: eGFR (Estimated GFR) Units [...] Ruiz MD LABORATORY Final Result [facility] [address] [place] [address] from Last 3 Months or Most Recently Relevant to Health Maintenance Care Teams Neon Pumper Relationship Specialty Start Date End Date Lizzette Malik CNP PCP - General Family Medicine 12/04/14 Domi Altamirano, CYBER SOFTWARE ENGINEER Referring Family Medicine 10/14/21
--- OUTSIDE RECORDS SUMMARY | 2024-12-30 16:00 | XMS_ITS | Encounter Summary ---
Demographics Address [address] [facility] [address] [place] [address] Mobile Phone Home Phone Work Phone Email Address Preferred Language en Marital Status Confucianism Affiliation Unknown Race White Ethnic Group Not or Lati no Author Organization [facility] Address [address] [place] [address] Care Team Providers Care Telegraphic Instrument Supervisor Name Role Phone Domi Altamirano MD UROLOGIST Unavailable [phone] Hiren Horton MD Primary Care Provider [phone] Domi Altamirano MD UROLOGIST Unavailable [phone] Domi Altamirano NP Unavailable [phone] Unallocated, Noms Provider Primary Care Provi taylor Encounter Details Date Type Department Care Team (Late st Contact Info) Description 09/25/2023 Orders Only [facility] [address] [place] [id number] Carolyn Seven, OD [address] [id number] Social History Tobacco Use Types Packs/Day Years [...] Modality Radiographic Carmen ging us Domi Altamirano MD UROLOGIST IMG XR PROCEDURES Final Result * Diabetic Retinopathy Screening - OU - Both Eyes (09/25/2023 8:54 AM EDT) Anatomical Region Laterality Modality Head Other us Seven Carolyn OD OPHTH PHOTOGRAPHY Final Result documented in this encounter Visit Diagnoses Not on filedocumented in this encounter Care Teams Telegraphic Instrument Supervisor Relationship Specialty Start Date End Date Hiren Horton MD PCP - General Family Medicine 07/26/23 10/13/24 Domi Altamirano NP [address] [place] [address] PCP - [facility] 08/24/24 Unallocated, Noms MD Mariaelena [address] [place] [address] PCP - General Family Medicine 10/14/24 Domi Altamirano NP Nurse Practitioner Family Medicine 03/26/22 10/13/24 Domi Altamirano NP Nurse Practitioner Family Medicine 07/26/23 10/13/24 documented as of this encounter
--- OUTSIDE RECORDS SUMMARY | 2024-12-30 16:00 | XMS_ITS | Clinical Summary ---
Demographics Address [address] [place] [address] Mobile Phone Home Phone Work Phone Email Address Preferred Language en Marital Status Druze Affiliation Unknown Race White Ethnic Group Not or Lati no Author Organization [facility] Address [address] [place] [address] Care Team Providers Care Pickling Grader Name Role Phone Domi Altamirano MIGUEL A Unavailable [phone] Unallocated, [facility] Provider Primary Care Provi taylor Allergies Active Allergy Reactions Criticality Noted Date Comments Erythromycin Unknown 02/21/2023 Latex Unknown 02/21/2023 Methylprednisolone Unknown 02/21/2023 Methylprednisolone Sodium Succ Anaphylaxis High 12/0 08/2016 Tramadol 07/26/2023 Pinnqeyuaxh-Hqrrngjht-Bxcgjn Shortness of breath High 02/21/2023 Medications cetirizine [...] 07/22/2024 Bronchitis 12/11/2023 04/14/2024 Overview (01/10/2024): HEALTH[employer]ACK[employer]X [id number] Exp: 03/25/24 Lot # [id number] Assessment & Plan (01/10/2024 1:18 PM EDT): No wheezing noted, multiple allergies and has been on z pack as well as doxy and steroids Will order health trax Possible allergy trigger?? Samples of vandana 180mg 1 po daily, and #2 samples Lot [id number], exp 08/18 Airsupra sample #1; [id number], exp 04/2024 Astepro allergy nasal spray 2 [...] AM EDT): Tremayne samples X3 given Lot: [id number], exp 12/18 Assessment & Plan (10/15/2023 7:48 PM EDT): Continue with current meds no changes Major depression in partial remission 07/26/2023 04/14/2024 Encounters Date Type Department Care Team Description 10/15/2024 External Result Encounter [facility] External Department Unsolicited Jose M Mercedes, DO 10/14/2024 External Result Encounter [facility] External Department Unsolicited Jose M Mercedes, DO 10/14/2024 External Result Encounter [facility] External Department Unsolicited Daren Jose M Bryan, DO 10/14/2024 External Result Encounter [facility] External Department Unsolicited Dariel Mercedesothy Bryan, DO 10/14/2024 External Result Encounter [facility] External Department Unsolicited ChristopherdianeJose M, DO 09/30/2024 Clinisync Result Encounter [facility] External Department Unsolicited Provider, Generic External Data from Last 3 Months Family History Medical [...] How often do you attend alevism or zoroastrianism serv ices? Never 10/08/2023 Do [...] medical care, and heating? Very hard 10/08/2023 [facility] of Occupat ional Health - Occupational Stress [...] any time in the past 12 m [facility], were you homeless or living in [...] Protein Screening 07/25/2024 024 Mammogram 09/24/2024 09/25/2023, 0 04/2023, 06/03/2021 Diabetes: Hemoglobin A1C 01/21/2025 07/22/2024, 050 04/2023 Diabetes: Retinopathy Screening 09/24/2025 Pap Smear 10/02/2026 10/03/2023, 02/0 10/2021, 07/14/2009, Additional history exists Colorectal Cancer Screening 10/08/2026 FIT-DNA 10/08/2026 10/09/2023 Cervical Cancer Screening 10/02/2028 HPV/Cotest 10/02/2028 10/03/2023 Influenza Vaccine Discontinued Procedures Procedure Name Priority Date/Time Associated Diagnosis Comments FIBRINOGEN ACTIVITY, CLAUSS Routine 10/15/2024 5:53 AM EDT PROTEIN ELECTRO, RANDOM URINE Routine 10/14/2024 5:00 PM EDT IMMUNOFIXATION,SERUM ([facility]) Routine 10/14/2024 12:20 PM EDT [facility] PANEL TO NEOGENOMIC Routine 10/14/2024 [...] SED RATE Routine 09/30/2024 8:42 AM EDT POCT GLYCOSYLATED HEMOGLOBIN (HGB A1C) [...] - 393 mg/dL 10/15/2024 7:20 AM EDT [facility] Comment: A hematocrit value greater than 55% may lead to inaccurate results in coagulation testing. Patients having hematocrit values >55% require a special collection tube for coagulation studies. Please contact the laboratory at [phone] for redraw instructions. Other Topography unknown / Unknown 10/15/2024 5:53 AM EDT 10/15/2024 6:15 AM EDT Jose M Mercedes DO LAB BLOOD ORDERABLES Chloe l Result Performing Organization Address City/[facility]/ZIP Co de Phone Number [facility] [address] [place] [address], [facility] [address] [place] [address] * PROTEIN ELECTRO, RANDOM URINE (10/14/2024 5:00 PM EDT) PROTEIN, TOTAL, URINE 19.9 Not Estab. mg/dL 10/18/2024 4:08 PM EDT [facility] ALBUMIN, URINE 6.9 . % 10/18/2024 4:08 PM EDT [facility] CLEWO-8-NFJPEBIM, URINE 2.9 . % 10/18/2024 4:08 PM EDT [facility] UUJZM-8-HIPOAINM, URINE 33.9 . % 10/18/2024 4:08 PM EDT [facility] BETA GLOBULIN, URINE 29.0 . % 10/18/2024 4:08 PM EDT [facility] GAMMA GLOBULIN, URINE 27.3 . % 10/18/2024 4:08 PM EDT [facility] M-SPIKE % 5.0 Not Observed % 10/18/2024 4:08 PM EDT [facility] Comment:Alpha 2 and beta reg ions appear asymmetrical. PLEASE NOTE: Comment . 10/18/2024 4:08 PM EDT [facility] Comment: Protein electrophoresis scan will follow via computer, mail, or argon tester delivery. Performed at: [address] [id number] Employment Case Manager: Abel Finnegan PhD, Phone: [phone] Other 10/14/2024 5:00 PM EDT 10/14/2024 5:08 PM EDT Jose M Mercedes DO LAB BLOOD ORDERABLES Chloe l Result Performing Organization Address City/[facility]/ZIP Co de Phone Number [facility] [address] [place] [address], * [facility] PANEL TO NEOGENOMIC (10/14/2024 12:20 PM EDT) [facility] PANEL TO NEOGENOMIC 10/16/2024 8:38 AM EDT [facility] Comment:See report. Scanned copy available in EMR. Other Topography unknown / Unknown 10/14/2024 12:20 PM EDT 10/14/2024 12:30 PM EDT Jose M Mercedes DO LAB BLOOD ORDERABLES Chloe l Result Performing Organization Address City/[facility]/ZIP Co de Phone Number [facility] [address] [place] [address], [facility] [address] [place] [address] * FREE K+L LT CHAINS, QN, S (10/14/2024 12:20 PM EDT) FREE KAPPA LIGHT CHAINS, S 66.0 3.3 - 19.4 mg/L 10/15/2024 2:36 PM EDT [facility] FREE LAMBDA LIGHT CHAINS, S 63.7 5.7 - 26.3 mg/L 10/15/2024 2:36 PM EDT [facility] KAPPA/LAMBDA RATIO, S 1.04 0.26 - 1.65 10/15/2024 2:36 PM EDT [facility] Comment: Performed at: - [facility] [id number] Employment Case Manager: Abel Finnegan PhD, Phone: [phone] Other Topography unknown / Unknown 10/14/2024 12:20 PM EDT 10/14/2024 12:30 PM EDT Narrative [facility] - 10/16/2024 4:08 PM EDT OK TO DO IN THE AM FOR MORNING ROUNDS, PER SOPHIE DAVIS, PLS.@ ISAAC DATE was changed from 10/14/24 to 10/15/24 Jose M Mercedes DO LAB BLOOD ORDERABLES Chloe l Result Performing Organization Address City/[facility]/ZIP Co de Phone Number [facility] [address] [place] [address], * IMMUNOFIXATION,SERUM ([facility]) (10/14/2024 12:20 PM EDT) IMMUNOFIXATION, SERUM Comment: . 10/16/2024 4:08 PM EDT [facility] Comment: Presence of monoclonal protein is unclear at this time. Suggest repeat in 3 to 6 months if clinically indicated. IMMUNOGLOBULIN G 980 586 - 1,602 mg/dL 10/16/2024 4:08 PM EDT [facility] IMMUNOGLOBULIN A, SERUM 397 87 - 352 mg/dL 10/16/2024 4:08 PM EDT [facility] IMMUNOGLOBULIN M, SERUM 166 26 - 217 mg/dL 10/16/2024 4:08 PM EDT [facility] Comment: Performed at: [facility] [address] [id number] Employment Case Manager: Abel Finnegan PhD, Phone: [phone] Other Topography unknown / Unknown 10/14/2024 12:20 PM EDT 10/14/2024 12:30 PM EDT Narrative [facility] - 10/16/2024 4:08 PM EDT OK TO DO IN THE AM FOR MORNING ROUNDS, PER SOPHIE DAVIS, PLS.@ [facility] DATE was changed from 10/14/24 to 10/15/24 us Jose M Mercedes DO LAB BLOOD ORDERABLES Chloe l Result [facility] [address] [place] [address], * Protein electrophoresis, serum (10/14/2024 12:20 PM EDT) TOTAL PROTEIN, SERUM 6.3 6.0 - 8.5 g/dL 10/15/2024 1:08 PM EDT [facility] ALBUMIN, SERUM 1.8 2.9 - 4.4 g/dL 10/15/2024 1:08 PM EDT [facility] EGVPC-6-TPDAOHRM 0.8 0.0 - 0.4 g/dL 10/15/2024 1:08 PM EDT [facility] ZQKGI-4-ABTTWXGU 1.6 0.4 - 1.0 g/dL 10/15/2024 1:08 PM EDT [facility] BETA GLOBULIN 1.1 0.7 - 1.3 g/dL 10/15/2024 1:08 PM EDT [facility] GAMMA GLOBULIN 1.0 0.4 - 1.8 g/dL 10/15/2024 1:08 PM EDT [facility] M-SPIKE Comment: Not Observed g/dL 10/15/2024 1:08 PM EDT [facility] Comment: SPE shows asymmetrical beta. Suggest serum BIRDIE and free light chain analysis for further evaluation. GLOBULIN, TOTAL 4.5 2.2 - 3.9 g/dL 10/15/2024 1:08 PM EDT [facility] A/G RATIO 0.4 0.7 - 1.7 10/15/2024 1:08 PM EDT [facility] SPE-NOTE Comment . 10/15/2024 1:08 PM T [facility] Comment: Protein electrophoresis scan will follow via computer, mail, or argon tester delivery. Performed at: [address] [id number] Employment Case Manager: Abel Finnegan PhD, Phone: [phone] Other Topography unknown / Unknown 10/14/2024 12:20 PM EDT 10/14/2024 12:30 PM EDT Narrative [facility] - 10/16/2024 4:08 PM EDT OK TO DO IN THE AM FOR MORNING ROUNDS, PER SOPHIE DAVIS, PLS.@ [facility] DATE was changed from 10/14/24 to 10/15/24 Jose M Mercedes DO LAB BLOOD ORDERABLES Chloe l Result Performing Organization Address City/[facility]/ZIP Co de Phone Number [address] [address], * (ABNORMAL) Haptoglobin (10/14/2024 12:20 PM EDT) HAPTOGLOBIN >400(H) 44 - 215 mg/dL 10/14/2024 1:34 PM EDT [facility] Other Topography unknown / Unknown 10/14/2024 12:20 PM EDT 10/14/2024 12:30 PM EDT Jose M Mercedes DO LAB BLOOD ORDERABLES Chloe l Result Performing Organization Address City/[facility]/ZIP Co de Phone Number [facility] [address] [place] [address], [facility] [address] [place], [place] [address] * RETICULOCYTE PCT AUTO (09/30/2024 8:42 AM [...] ALL SED RATE (09/30/2024 8:42 AM EDT) [facility] SED RATE >130(H) <=20 mm/hr TB 09/30/2024 8:42 AM EDT 09/30/2024 8:49 AM EDT Narrative [facility] - 09/30/2024 9:05 AM EDT Generic External Data Provider [facility] F inal Result [facility] * (ABNORMAL) ALL CBC WITH AUTO DIFF (09/30/2024 8:42 AM EDT) [facility] WBC 25.4(H) 4.0 - 11.0 10 3/uL [facility]H TBH RBC 3.57(L) 4.20 - 5.40 10 6/uL [facility] TB HGB 9.0(L) 12.0 - 16.0 g/dL TB TB HCT 29.2(L) 36.0 - 48.0 % [facility]H MCV 81.8 81.0 - 99.0 fL TBH TB MCH 25.2(L) 26.7 - 34.0 pg TBH TB MCHC 30.8 29.9 - 35.2 g/dL TB TB RDW 22.0(H) 11.0 - 15.0 % TBH TBH PLT 1,006(HH) 150 - 450 10 3/uL [facility] Comment:RESULTS CALLED TO TIERRA MATTA RN at 0930 TB MPV 8.5(L) 9.5 - 13.5 fL TB 09/30/2024 8:42 AM EDT 09/30/2024 8:49 AM EDT Narrative [facility] - 09/30/2024 9:47 AM EDT Generic External Data Provider [facility] F inal Result [facility] * POCT glycosylated hemoglobin (Hb A1C) docked device (07/22/2024 8:47 AM EDT) [facility] Hemoglobin A1C 5.6 Blood Venous blood specimen / Unknown 07/22/2024 8:47 AM EDT Domi Limcharuwashington MIGUEL A POINT OF CARE TEST ENTER/EDIT O RDERABLES Final Result * Cologuard?? colon cancer screening (10/09/2023 1:30 PM EDT) NONINV COLON CA DNA+OCC BLD SCRN STL-IMP Negative Negative 10/21/2023 5:33 PM EDT [employer] (CLIA #:[id number]) Comment: NEGATIVE TEST RESULT. A negative Cologuard [...] screened with both Cologuard and colonoscopy. (Ousmane T. et al, N Engl J Med 2014;370(14):6495-9691) The normal value (reference range) for this assay is negative. COLOGUARD RE-SCREENING RECOMMENDATION: Periodic colorectal cancer screening is an important part of preventive healthcare for asymptomatic individuals at average risk for colorectal cancer. Following a negative Cologuard result, the English Cancer Society and U.S. Multi-Society Task Force screening guidelines recommend a Cologuard re-screening interval of 3 years. References: English Cancer Society Guideline for Colorectal Cancer Screening: https://www.cancer.org/cancer/mvlmr-gwmpbd-kyjynu/rdnlhpaey-gfpyfophq-bjljtqm/ac s-rec ommendations.html.; Jonathan KO, John JACOB, Ciro LE, Colorectal Cancer Screening: Recommendations for Physicians and Patients from the U.S. Multi-Society Task Force on Colorectal Cancer Screening , Am J Gastroenterology 2017; 112:8011-8203. TEST DESCRIPTION: Composite algorithmic analysis of stool [...] screened with both Cologuard and colonoscopy. (Ousmane Fuentes. et al, N Engl J Med 2014;370(14):7638-5533.) Cologuard may produce a false negative or false positive result (no colorectal cancer or precancerous polyp present at colonoscopy follow up). A negative Cologuard test result does not guarantee the absence of CRC or advanced adenoma (pre-cancer). The current Cologuard screening interval is every 3 years. (English Cancer Society and U.S. Multi-Society Task Force). Cologuard performance data in a 10,000 patient pivotal study using colonoscopy as the reference method can be accessed at the following location: www.[employer]Match.Sybari/results. Additional description of the Cologuard test process, warnings and precautions can be found at www.cologuard.com. Stool specimen (specimen) 10/09/2023 1:30 PM EDT 10/11/2023 8:01 AM EDT us Domi Altamirano NP LAB MOLECULAR DIAGNOSTICS ORDER DEANDRE Final Result [employer] (CLIA #:[id number]) [address] [place] [address], [place] [phone] [facility] (CLIA #:[id number]) [address] [place] [address] * MM TOMOSYNTHESIS SCREENING BI (09/25/2023 3:19 PM EDT) Anatomical Region Laterality Modality Other 09/25/2023 3:19 PM EDT Narrative 09/25/2023 3:20 [place] [address] Mammography Report Signed Patient: RYLEE BURTON MR#: [id number] : 1975 Acct:[id number] Age/Sex: 48 / F ADM Date: 09/24/23 Loc: MAMMO Attending Dr: Domi Altamirano NP Ordering Physician: Domi Altamirano NP Results: Date of Service: 09/24/23 Follow Up: Procedure(s): MM tomosynthesis screening BI Accession Number(s): [id number] cc: Domi Altamirano NP Patient Name: RYLEE BURTON MR#: [id number] : 1975 Exam Date: 09/24/2023 Ordering Doctor: [...] lymphoma cancer at age 63. LOCATION: [facility] BREAST COMPOSITION: The breasts are heterogeneously [...] Signed By: 09/25/23 1520 DD/ 1519 TD/TT: Facility Practice Specialist: Procedure Note Radiology, Radiologist, MD - 09/25/2023 [place] [address] Mammography Report Signed Patient: RYLEE BURTON KMR#: [id number] : 1975Acct:[id number] Age/Sex: 48 / FADM Date: 09/24/23 Loc: MAMMO Attending Dr: Domi Altamirano NP Ordering Physician: Domi Altamirano NPResults: Date of Service: 09/24/23Follow Up: Procedure(s): MM tomosynthesis screening BI Accession Number(s): [id number] cc: Domi Altamirano NP Patient Name: RYLEE BURTON MR#: [id number] : 1975 Exam Date: 09/24/2023 Ordering Doctor: [...] lymphoma cancer at age 63. LOCATION: [facility] BREAST COMPOSITION: The breasts are heterogeneously [...] M.D. Signed By:09/25/23 1520 DD/ 1519 TD/TT: Facility Practice Specialist: us Domi Altamirano NP [facility] Final Result * Diabetic Retinopathy Screening - OU - Both Eyes (09/25/2023 8:54 AM EDT) Anatomical Region Laterality Modality Head Other us Seven Carolyn OD OPHTH PHOTOGRAPHY Final Result from Last 3 Months or Most Recently Relevant to Health Maintenance Insurance [address] [address] [facility] Care Teams Pickling Grader Relationship Specialty Start Date End Date Domi Altamirano NP [address] [place] [address] PCP - [place] [employer] 08/24/24 Unallocated, [facility] Mariaelena, [address] [place] [address] PCP - General Family Medicine 10/14/24
--- OUTSIDE RECORDS SUMMARY | 2024-12-30 16:00 | XMS_ITS | Encounter Summary ---
Demographics Address [address] [facility] [address] [place] [address] Mobile Phone Home Phone Work Phone Email Address Preferred Language en Marital Status Anabaptism Affiliation Unknown Race White Ethnic Group Not or Lati no Author Organization [facility] Address [address] [facility] [address] Care Team Providers Care Snap Shearer Name Role Phone Domi Altamirano NP Unavailable [phone] Hiren Horton MD Primary Care Provider Domi Altamirano NP Unavailable [phone] Domi Altamirano NP Unavailable [phone] Unallocated, Noms Provider Primary Care Provi taylor Encounter Details Date Type Department Care Team (Late st Contact Info) Description 10/09/2023 Orders Only [facility] [address] [place] [id number] Domi Munroe MD [address] [place], [place] [address] Social History Tobacco Use Types Packs/Day Years [...] How often do you attend christian or adventist serv ices? Never 10/08/2023 Do [...] medical care, and heating? Very hard 10/08/2023 [facility] of Occupat ional Health - Occupational [...] any time in the past 12 m [facility], were you homeless or living in a residential (including now)? Yes 10/08/2023 Comments Unknown Sex [...] on filedocumented in this encounter Care Teams Snap Shearer Relationship Specialty Start Date End Date Hiren Horton MD PCP - General Family Medicine 07/26/23 10/13/24 Domi Altamirano NP [address] [place] [address] PCP - [place] [employer] 08/24/24 Unallocated, [place] [address] PCP - General Family Medicine 10/14/24 Domi Altamirano NP Nurse Practitioner Family Medicine 03/26/22 10/13/24 Domi Altamirano NP Nurse Practitioner Family Medicine 07/26/23 10/13/24 documented as of this encounter
--- OUTSIDE RECORDS SUMMARY | 2024-12-30 16:00 | XMS_ITS | Encounter Summary ---
Demographics Address [address] [facility] [address] [place] [address] Mobile Phone Home Phone Work Phone Email Address Preferred Language en Marital Status Baptist Affiliation Unknown Race White Ethnic Group Not or Lati no Author Organization [facility] Address [address] [place] [address] Care Team Providers Care Live In Companion Name Role Phone Domi Altamirano NP Unavailable [phone] Hiren Horton MD Primary Care Provider [phone] Domi Altamirano TECHNICAL OPERATIONS VICE PRESIDENT Unavailable [phone] Domi Altamirano NP Unavailable [phone] Unallocated, [facility] Provider Primary Care Provi taylor Encounter Details Date Type Department Care Team (Late st Contact Info) Description 12/18/2023 Orders Only [facility] [address] [place] [address] Domi Altamirano, TECHNICAL OPERATIONS VICE PRESIDENT [address] [facility] [place] [address] Social History Tobacco Use Types Packs/Day Years [...] declined 10/08/2023 How often do you attend jehovah's witness or bahai serv ices? Never 10/08/2023 Do you belong to any clubs o r organizations such as jehovah's witness groups, unions, fraternal or athletic groups, or [...] medical care, and heating? Very hard 10/08/2023 [facility] of Occupat ional Health - Occupational Stress [...] on filedocumented in this encounter Care Teams Live In Companion Relationship Specialty Start Date End Date Hiren Horton MD PCP - General Family Medicine 07/26/23 10/13/24 Domi Altamirano NP [address] [place] [address] PCP - [place] [employer] 08/24/24 Unallocated, [facility] MD Mariaelena [address] [place] [address] PCP - General Family Medicine 10/14/24 Domi Altamirano NP Nurse Practitioner Family Medicine 03/26/22 10/13/24 Domi Altamirano NP Nurse Practitioner Family Medicine 07/26/23 10/13/24 documented as of this encounter
--- OUTSIDE RECORDS SUMMARY | 2024-12-30 16:00 | XMS_ITS | Encounter Summary ---
Demographics Address [address] [place] [address] Mobile Phone Home Phone Work Phone Email Address Preferred Language en Marital Status Sikh Affiliation Unknown Race White Ethnic Group Not or Lati no Author Organization [facility] Address [address] [place] [address] Care Team Providers Care Pharmacist Per Diem Name Role Phone Domi Altamirano NP Unavailable [phone] Hiren Horton MD Primary Care Provider [phone] Domi Altamirano NP Unavailable [phone] Domi Altamirano NP Unavailable [phone] Unallocated, [facility] Provider Primary Care Provi [...] declined 10/08/2023 How often do you attend scientologist or sikhism serv ices? Never 10/08/2023 Do you belong to any clubs o r organizations such as scientologist groups, unions, fraternal or athletic groups, or [...] care, and heating? Very hard 10/08/2023 [facility] of Occupat ional Health - [...] AM EDT Narrative 10/09/2023 7:09 [place] [address] Ultrasound Report Signed Patient: JAIME MERRILL MR#: [id number] : 1975 Acct:[id number] Age/Sex: 48 / F ADM Date: 10/08/23 Loc: US Attending Dr: Domi Howrad ADMITTANCE ATTENDANT Ordering Physician: Domi Howard NP Date of Service: 10/08/23 Procedure(s): US pelvis transvaginal Accession Number(s): [id number] cc: Domi Altamirano NP; Domi Howard NP [address] [address] Patient Name: JAIME MERRILL MRN: [id number] date: 1975 Sex: F Assigned Patient Location: US Current Patient Location: Accession/Order Number: [id number] Exam Date: 10/08/2023 18:28 Report Date: 10/09/2023 [...] M.D. Signed By: 10/09/2309 DD/ 5 TD/TT: Strip Presser: Procedure Note Radiology, Radiologist, MD - 10/09/2023 [place] [address] Ultrasound Report Signed Patient: JAIME MERRILL KMR#: [id number] : 1975Acct:[id number] Age/Sex: 48 / FADM Date: 10/08/23 Loc: US Attending Dr: Domi Howard NP Ordering Physician: Domi Howard NP Date of Service: 10/08/23 Procedure(s): US pelvis transvaginal Accession Number(s): [id number] cc: Domi Altamirano NP; oDmi Howard NP The [address] [address] Patient Name: JAIME MERRILL MRN: [id number] date: 1975 Sex: F Assigned Patient Location: US Current Patient Location: Accession/Order Number: [id number] Exam Date: 10/08/2023 18:28 Report Date: 10/09/2023 [...] M.D. Signed By:10/09/23 0709 DD/ 0706 TD/TT: Strip Presser: us Generic External Data Provider [facility] Final Result documented in this encounter Visit Diagnoses Not on filedocumented in this encounter Care Teams Pharmacist Per Diem Relationship Specialty Start Date End Date Hiren Horton MD PCP - General Family Medicine 07/26/23 10/13/24 Domi Altamirano NP [address] [place] [address] [facility] Unallocated, [facility] Provider, [address] [place] [address] PCP - General Family Medicine 10/14/24 Domi Altamirano NP Nurse Practitioner Family Medicine 03/26/22 10/13/24 Domi Altamirano NP Nurse Practitioner Family Medicine 07/26/23 10/13/24 documented as of this encounter
--- OUTSIDE RECORDS SUMMARY | 2024-12-30 16:00 | XMS_ITS | Encounter Summary ---
Demographics Address [address] [facility] [address] [place] [address] Mobile Phone Home Phone Work Phone Email Address Preferred Language en Marital Status Hinduism Affiliation Unknown Race White Ethnic Group Not or Lati no Author Organization [facility] Address [address] [place] [address] Care Team Providers Care Technical Coordinator Name Role Phone Domi Altamirano CRYPTOGRAPHIC MACHINE OPERATOR Unavailable [phone] Hiren Horton MD Primary Care Provider [phone] Domi Altamirano CRYPTOGRAPHIC MACHINE OPERATOR Unavailable [phone] Domi Altamirano NP Unavailable [phone] Unallocated, Noms Provider Primary Care Provi taylor Encounter Details Date Type Department Care Team (Late st Contact Info) Description 12/31/2023 Orders Only [facility] [address] [place] [address] Abran West MD [address], [place] [id number] Social History Tobacco Use Types Packs/Day Years [...] How often do you attend methodist or taoism serv ices? Never 10/08/2023 Do [...] on filedocumented in this encounter Care Teams Technical Coordinator Relationship Specialty Start Date End Date Hiren Horton MD PCP - General Family Medicine 07/26/23 10/13/24 Domi Altamirano NP [address] [place] [address] PCP - [place] [facility] 08/24/24 Unallocated, Noms [place] [address] PCP - General Family Medicine 10/14/24 Domi Altamirano NP Nurse Practitioner Family Medicine 03/26/22 10/13/24 Domi Altamirano NP Nurse Practitioner Family Medicine 07/26/23 10/13/24 documented as of this encounter
--- OUTSIDE RECORDS SUMMARY | 2024-12-30 16:00 | XMS_ITS | Encounter Summary ---
Demographics Address [address] [place] [address] Mobile Phone Home Phone Work Phone Email Address Preferred Language en Marital Status Uatsdin Affiliation Unknown Race White Ethnic Group Not or Lati no Author Organization [facility] Address [address] [place] [address] Care Team Providers Care Psychology Fellow Name Role Phone Domi Altamirano NP Unavailable [phone] Hiren Horton MD Primary Care Provider Domi Altamirano NP Unavailable [phone] Domi Altamirano NP Unavailable [phone] Unallocated, Noms Provider Primary Care Provi taylor Encounter Details Date Type Department Care Team (Late st Contact Info) Description 09/25/2023 Clinisync Result Encounter [facility] External Department Unsolicited Domi Altamirano HARDWARE ENGINEER [address] [place] [address] Social History Tobacco Use Types Packs/Day Years [...] EDT Narrative 09/25/2023 3:20 [place] [address] Mammography Report Signed Patient: JAIME MERRILL MR#: [id number] : 1975 Acct:[id number] Age/Sex: 48 / F ADM Date: 09/24/23 Loc: MAMMO Attending Dr: Domi Altamirano NP Ordering Physician: Domi Altamirano NP Results: Date of Service: 09/24/23 Follow Up: Procedure(s): MM tomosynthesis screening BI Accession Number(s): [id number] cc: Domi Altamirano NP Patient Name: JAIME MERRILL MR#: [id number] : 1975 Exam Date: 09/24/2023 Ordering Doctor: [...] lymphoma cancer at age 63. LOCATION: [facility] BREAST COMPOSITION: The breasts are [...] Signed By: 09/25/23 1520 DD/ 1519 TD/TT: Synthetic Filament Extruder: Procedure Note Radiology, Radiologist, MD - 09/25/2023 [place] [address] Mammography Report Signed Patient: JAIME MERRILL KMR#: [id number] : 1975Acct:[id number] Age/Sex: 48 / FADM Date: 09/24/23 Loc: MAMMO Attending Dr: Domi Altamirano HARDWARE ENGINEER Ordering Physician: Domi Altamirano NPResults: Date of Service: 09/24/23Follow Up: Procedure(s): MM tomosynthesis screening BI Accession Number(s): [id number] cc: Domi Altamirano HARDWARE ENGINEER Patient Name: JAIME MERRILL MR#: [id number] : 1975 Exam Date: 09/24/2023 Ordering Doctor: ARELY ALTAMIRANO HOTEL RESERVATIONIST RADIOLOGY REPORT PROCEDURE: MM TOMOSYNTHESIS SCREENING BI [...] lymphoma cancer at age 63. LOCATION: [facility] BREAST COMPOSITION: The breasts are [...] M.D. Signed By:09/25/23 1520 DD/ 1519 TD/TT: Synthetic Filament Extruder: Domi Altamirano NP [facility] Final Result documented in this encounter Visit Diagnoses Not on filedocumented in this encounter Care Teams Psychology Fellow Relationship Specialty Start Date End Date Hiren Horton MD PCP - General Family Medicine 07/26/23 10/13/24 Domi Altamirano NP [address] [place] [address] PCP - [facility] 08/24/24 Unallocated, Noms Provider, [address] [place] [address] PCP - General Family Medicine 10/14/24 Domi Altamirano NP Nurse Practitioner Family Medicine 03/26/22 10/13/24 Domi Altamirano NP Nurse Practitioner Family Medicine 07/26/23 10/13/24 documented as of this encounter
--- OUTSIDE RECORDS SUMMARY | 2024-12-30 16:00 | XMS_ITS | Clinical Summary ---
Demographics Address [address] [place] [address] Mobile Phone Home Phone Mobile Phone Preferred Language Greek Marital Status Single Bahai Affiliation Unknown Race White Ethnic Group Not or Lati no Author Organization [employer] tem Address [id number] [address] [place] [address] Care Team Providers Care Hosiery Bagger Name Role Phone No Pcp, No Pcp [...] 1 capsule (300 mg total) by mouth. 7 Active tiotropium (SPIRIVA) 18 mcg per inhalation capsule Place 1 capsule into inhaler and inhale once daily. Active Active Problems No known active problems Encounters Date Type Department Care Team Description 12/26/2024 9:35 AM EDT - 12/26/2024 11:59 PM EDT Hospital Encounter [facility] [address] [place] [address] MPN (myeloproliferative neoplasm) (CMS-HCC); Lymphadenopathy Discharge Disposition: Home 12/26/2024 Travel from Last 3 Months Family History Medical [...] (143 lb) 12/26/2024 7:00 AM EDT Height 167.6 cm (5' 6 ) 10/03/2023 3:09 PM EDT Body Mass Index 23.08 10/03/2023 3:09 PM EDT Plan of Treatment Health Maintenance Due Date Last Done Comments Depression Screening 1987 DTaP,Tdap and Td Vaccines (1 - Tdap) 08/23/1994 Tobacco Screening 10/02/2024 10/03/2023 Influenza Vaccine 11/24/2024 Adult BMI Screening 12/26/2025 12/26/2024 Pap Smear 10/02/2026 10/03/2023, 10/03/2023 Medical Devices Not on file Procedures Procedure Name Priority Date/Time Associated Diagnosis Comments PET CT SKULL TO THIGH Routine 12/26/2024 12:03 PM EDT MPN (myeloproliferative neoplasm) (CMS-HCC) Lymphadenopathy HIGH RISK HPV W/FLACA Routine 10/03/2023 4:33 AM EDT Cervical smear, as part of routine gynecological examination from Last 3 Months or Most Recently Relevant to Health Maintenance Results * PET CT skull to thigh [...] by Marcos Vides on 12/29/2024 11:31 AM us Edel Francis MD IMG PET ORDERABLES Final Resul t * High risk HPV w/flaca (10/03/2023 4:33 AM EDT) Hpv specimen type ThinPrep 10/04/2023 4:33 AM EDT [facility] Hpv 16 Negative Negative^N egative 10/04/2023 1:07 PM EDT [facility] Hpv 18 Negative Negative^N egative 10/04/2023 1:07 PM EDT [facility] Other high risk hpv Negative Negative^N egative 10/04/2023 1:07 PM EDT [facility] Comment: HPV types 31,33,35,39,45,52,56,58,59,66 and 68 DNA were undetectable. THINP 10/03/2023 4:33 AM EDT 10/03/2023 4:38 AM EDT us Domi Ledezma SPOUT LINER HELPER-HORSE FARM MANAGER LAB BLOOD ORDERABLES Fin al Result TAMMY [facility] [address] [facility], [place] [address] [facility] [address] [address] [place] [address] from Last 3 Months or Most Recently Relevant to Health Maintenance Insurance [facility] Care Teams Hosiery Bagger Relationship Specialty Start Date End Date No Pcp, [place] [address] PCP - General Family Medicine 05/16/17
--- OUTSIDE RECORDS SUMMARY | 2024-12-30 16:00 | XMS_ITS | Encounter Summary ---
Demographics Address [address] [facility] [address] [place] [address] Mobile Phone Home Phone Work Phone Email Address Preferred Language en Marital Status Latter Day Affiliation Unknown Race White Ethnic Group Not or Lati no Author Organization [facility] Address [address] [place] [address] Care Team Providers Care Auto Rebuilder Name Role Phone Domi Altamirano NP Unavailable [phone] Hiren Horton MD Primary Care Provider Domi Altamirano CABLE FORMER Unavailable [phone] Domi Altamirano NP Unavailable [phone] Unallocated, Noms Provider Primary Care Provi taylor Encounter Details Date Type Department Care Team (Late st Contact Info) Description 12/17/2023 Orders Only [facility] [address] [place] [address] Domi Altamirano, CABLE FORMER [address] [facility] [place] [address] Social History Tobacco Use Types Packs/Day Years [...] How often do you attend christian or protestant serv ices? Never 10/08/2023 Do [...] heating? Very hard 10/08/2023 [facility] of Occupat ional Health - Occupational Stress [...] any time in the past 12 m [facility], were you homeless or living [...] on filedocumented in this encounter Care Teams Auto Rebuilder Relationship Specialty Start Date End Date Hiren Horton MD PCP - General Family Medicine 07/26/23 10/13/24 Domi Altamirano NP [address] [place] [address] [facility] 08/24/24 Unallocated, Noms Provider, [place] [address] PCP - General Family Medicine 10/14/24 Domi Altamirano NP Nurse Practitioner Family Medicine 03/26/22 10/13/24 Domi Altamirano NP Nurse Practitioner Family Medicine 07/26/23 10/13/24 documented as of this encounter
--- OUTSIDE RECORDS SUMMARY | 2024-12-30 16:00 | XMS_ITS | Encounter Summary ---
Demographics Address [address] [facility] [address] [place] [address] Mobile Phone Home Phone Work Phone Email Address Preferred Language en Marital Status Sabianist Affiliation Unknown Race White Ethnic Group Not or Lati no Author Organization [facility] Address [address] [place] [address] Care Team Providers Care Licensed Life And Health Agent Name Role Phone Domi Altamirano NP Unavailable [phone] Hiren Horton MD Primary Care Provider Domi Altamirano FITTER UP Unavailable [phone] Domi Altamirano NP Unavailable [phone] Unallocated, Noms Provider Primary Care Provi taylor Encounter Details Date Type Department Care Team (Late st Contact Info) Description 09/16/2024 Abstract [facility] [address] [place] [address] Domi Altamirano, FITTER UP [address] [place] [address] Social History Tobacco Use Types Packs/Day Years [...] How often do you attend voodoo or mandaeism serv ices? Never 10/08/2023 Do you belong [...] medical care, and heating? Very hard 10/08/2023 [facility] of Occupat ional Health - Occupational Stress [...] filedocumented in this encounter Care Teams Licensed Life And Health Agent Relationship Specialty Start Date End Date Hiren Horton MD PCP - General Family Medicine 07/26/23 10/13/24 Domi Altamirano NP [address] [place] [address] PCP - [place] [employer] 08/24/24 Unallocated, Noms Provider, [address] [place] [address] PCP - General Family Medicine 10/14/24 Domi Altamirano NP Nurse Practitioner Family Medicine 03/26/22 10/13/24 Domi Altamirano NP Nurse Practitioner Family Medicine 07/26/23 10/13/24 documented as of this encounter
--- OUTSIDE RECORDS SUMMARY | 2024-12-30 16:00 | XMS_ITS | Encounter Summary ---
Author Organization [facility] tem Address [id number] [address] [place] [address] Care Team Providers Care Recovery Operator Name Role Phone No Pcp, No Pcp Primary Care Provider Unavailabl e Encounter Details Date Type Department Care Team (Latest Contact Info) Description 12/26/2024 Travel Social History Tobacco Use Types Packs/Day [...] on filedocumented in this encounter Care Teams Recovery Operator Relationship Specialty Start Date End Date No Pcp, [place] [address] PCP - General Family Medicine 05/16/17 documented as of this encounter
--- OUTSIDE RECORDS SUMMARY | 2024-12-30 16:00 | XMS_ITS | Encounter Summary ---
Demographics Address [address] [facility] [address] [place] [address] Mobile Phone Home Phone Work Phone Email Address Preferred Language en Marital Status Nondenominational Affiliation Unknown Race White Ethnic Group Not or Lati no Author Organization [facility] Address [address] [place] [address] Care Team Providers Care Arresting Gear Operator Name Role Phone Domi Altamirano NP Unavailable [phone] Hiren Horton MD Primary Care Provider [phone] Domi Altamirano BANKING PARALEGAL Unavailable [phone] Domi Altamirano NP Unavailable [phone] Unallocated, Noms Provider Primary Care Provi taylor Encounter Details Date Type Department Care Team (Late st Contact Info) Description 01/10/2024 Abstract [facility] [address] [place] [address] Domi Altamirano, BANKING PARALEGAL [address] [facility] [place] [address] Social History Tobacco Use Types Packs/Day Years [...] How often do you attend episcopalian or presybeterian serv ices? Never 10/08/2023 Do [...] medical care, and heating? Very hard 10/08/2023 [facility] [place] of Occupat ional Health - Occupational Stress [...] on filedocumented in this encounter Care Teams Arresting Gear Operator Relationship Specialty Start Date End Date Hiren Horton MD PCP - General Family Medicine 07/26/23 10/13/24 Domi Altamirano NP [address] [place] [address] PCP - [place] [employer] 08/24/24 Unallocated, Noms Provider, [address] [place] [address] PCP - General Family Medicine 10/14/24 Domi Altamirano NP Nurse Practitioner Family Medicine 03/26/22 10/13/24 Domi Altamirano NP Nurse Practitioner Family Medicine 07/26/23 10/13/24 documented as of this encounter
--- OUTSIDE RECORDS SUMMARY | 2024-12-30 16:00 | XMS_ITS | Encounter Summary ---
Author Organization [facility] Address [address] [place] [address] Care Team Providers Care Package Line Operator Name Role Phone Domi Altamirano COMMERCIAL INSURANCE UNDERWRITER Unavailable [phone] Hiren Horton MD Primary Care Provider [phone] Domi Altamirano COMMERCIAL INSURANCE UNDERWRITER Unavailable [phone] Domi Altamirano NP Unavailable [phone] Unallocated, Noms Provider Primary Care Provi taylor Encounter Details Date Type Department Care Team (Late st Contact Info) Description 10/03/2023 Orders Only [facility] [address] [place] [address] Orly Rushing MD [address] [place] [address] Social History Tobacco Use Types [...] on filedocumented in this encounter Care Teams Package Line Operator Relationship Specialty Start Date End Date Hiren Horton MD PCP - General Family Medicine 07/26/23 10/13/24 Domi Altamirano NP [address] [place] [address] PCP - [facility] 08/24/24 Unallocated, Noms Provider, [address] [place] [address] PCP - General Family Medicine 10/14/24 Domi Altamirano NP Nurse Practitioner Family Medicine 03/26/22 10/13/24 Domi Altamirano NP Nurse Practitioner Family Medicine 07/26/23 10/13/24 documented as of this encounter
== END 2024-12-30 15:53 | disposition home or self-care (01) ==
LOC: LAB 15:52
PROVIDERS: PCP Family Medicine; Visit Provider Family Medicine
DX: L02.92 Furuncle, unspecified (principal)
CPT/HCPCS: 87070; 87075; 87186

== ENCOUNTER 2025-01-09 11:47 | Outpatient (OUT) | payer BC, SELFPAY ==
--- OUTSIDE RECORDS SUMMARY | 2024-08-15 03:51 | XMS_ITS | Continuity of Care Document ---
Author Organization [facility] Address [address] [place] [address] Phone Care Team Providers Care Sorting Cows Worker Name Role Phone Dylan Vincent DDS Unavailable [...] 1st Film Nutrit Couns For Control Of [place] Dis July Comp Oral Eval New/estab Patient 2024 Comp Oral Eval New/estab Patient 2024 Extract; Erupted Th/exposted Rt 025 Oral Hygiene Instruction Intraoral-periapical 1st Film Bitewig-single Film Limited Oral Eval Oral Hygiene Instruction COVID-19 Antigen Test Nutrit Couns For Control Of [place] Dis Apr Post Op Visit Dental Post [...] 3s; Posterior Nutrit Couns For Control Of [place] Dis Mar Resin Composite 4+s; Posterior Oral [...] Diagnoses Date Provider Providers Copied on Encounter [facility], [address], [place], [id number], [place] tel:[phone] [facility] Dental Clinic dn (chief complaint) Encounter for screening for dental disorders 5 Vincent DDS Yixue. [address] [place], [address], [place]. tel:[phone] [facility], [address] [place] [address], [id number], [place] tel:[phone] [facility] Dental Clinic ext (chief complaint) Encounter for screening for dental disorders 5 Vincent DDS Yixue. [address] [place] [address], [id number], [place]. tel:[phone] [facility], [address] [place] [address], [id number], [place] tel:[phone] [facility] Dental Clinic er (chief complaint) Encounter for screening for dental disorders 5 Vincent DDS Yixue. [address] [place] [address], [id number], [place]. tel:[phone] [facility], [address] [place] [address], [id number], [place] tel:[phone] Dental Clinic POV (chief complaint) Encounter for screening for COVID-19Encounter for screening for dental disorders 2 José Luis Ayoub. [address] [place] [address], [id number], [place]. tel:[phone] [facility], [address] [place] [address], [id number], [place] tel:[phone] Dental Clinic No Information 2 Ruddy Delgado. [address] [place] [address], [id number] , [place]. tel:[phone] [facility], [address] [place] [address], [id number], [place] tel:[phone] COVID [facility] No Information 2 Kervin Adkins. [address], [place], [id number] , [place]. tel:[phone] [facility], [address], [place], [id number], [place] tel:[phone] Dental Clinic Dental Limited (chief complaint) Encounter for screening for dental disorders 2 Ruddy Delgado. [address], [place], [id number] , [place]. tel:[phone] [facility], [address], [place], [id number], [place] tel:[phone] Dental Clinic Fill (chief complaint) Encounter for screening for dental disorders 2 Ruddy Delgado. [address], [place], [id number] , [place]. tel: [phone] [facility], [address], [place], [id number], [place] tel:[phone] Dental Clinic Fillings (chief complaint) Encounter for screening for dental disorders 2 Ruddy Delgado. [address], [place], [id number] , [place]. tel:[phone] [facility], [address], [place], [id number], [place] tel:[phone] Dental Clinic Fill (chief complaint) Encounter for screening for dental disorders 2 Ruddy Delgado. [address], [place], [id number] , [place]. tel:[phone] [facility], [address], [place], [id number], [place] tel:[phone] Dental Clinic filling (chief complaint) Encounter for screening for dental disorders 2 José Luis Ayoub. [address] [place], [address], [place]. tel:[phone] [facility], [address], [place], [id number], [place] tel:[phone] Dental Clinic Filling (chief complaint) Encounter for screening for dental disorders 2 Ordonez DDS Mega. [address] [place], [address], [place]. tel: [phone] [facility], [address], [place], [id number], [place] tel:[phone] Dental Clinic DL (chief complaint) Encounter for screening for dental disorders 2 Ordonez DDS Mega. [address] [place], [address], [place]. tel: [phone] [facility], [address] [place] [address], [id number], [place] tel:[phone] Dental Clinic dental new (chief complaint) Encounter for screening for dental disorders 9 Domarkos DDS Alfredojulianek. [address], [place], [id number] , [place]. tel: [phone] [facility], [address] [place] [address], [id number], [place] tel:[phone] [facility] Detox Encounter for test, result negativeAlcohol dependence with withdrawal, unspecifiedAnxiety disorder, unspecifiedCough Mar-0 8-201 8 [place] Zachary. [address] [place], [address], [place]. tel: [phone] [facility], [address] [place] [address], [id number], [place] tel:[phone] [facility] Detox [place]: (chief complaint) Encounter for test, result negativeAlcohol dependence with withdrawal, unspecifiedAnxiety disorder, unspecifiedCough Mar-0 7-201 8 [place] Zachary. [address] [place], [address], [place]. tel: [phone] [facility], [address] [place] [address], [id number], [place] tel:[phone] [facility] Detox Encounter for test, result negativeAlcohol dependence with withdrawal, unspecifiedAnxiety disorder, unspecified Mar-0 6-201 8 [place] Sharma. [address] [place], [address], [place]. tel:[phone] [facility], [address] [place] [address], [id number], [place] tel:[phone] [facility] Detox Encounter for test, result negativeAlcohol dependence with withdrawal, unspecifiedAnxiety disorder, unspecified Mar-0 6-201 8 [place] Sharma. [address] [place], [address], [place]. tel:[phone] [facility], [address] [place] [address], [id number], [place] tel:[phone] [facility] Detox [place]: (chief complaint) Encounter for test, result negativeAlcohol dependence with withdrawal, unspecifiedAnxiety disorder, unspecified Mar-0 5-201 8 [place] Sharma. [address] [place], [address], [place]. tel:[phone] Family History Family Member Type Diagnosis Age [...] mellitus Payers Payer name Insurance type Covered libertarian ID Sarah monroe(s) [facility]andal [facility] 17 [id number] Social History Type Description Quantity Date Captured [...] tr eatment DL DL dental new dental [facility] [place]: Doing better now than when [...] she is getting some counselling through her hat lacer. Functional Status Date Functional Assessmen t No Information Instructions Date Instruction Additional Infor mation No Information Assessments Type Assessment Date No Information Patient Care Teams Name Effective Dates (start - stop) Status Members No Information
--- OUTSIDE RECORDS SUMMARY | 2024-10-22 09:00 | XMS_ITS ---
Author Organization [facility] in [place] Address [address] [place] [address] Care Team Providers Care Rpg Programmer Name Role Phone Mansoor Swenson Primary Care Provider REASON FOR VISIT 3 week f/u Encounters Encounter Location Date Provider Diagnosis [facility] [address] [place] [address] 10/22/2024 Mansoor Swenson Plan Of Treatment No Information Progress Notes * Lui MERRILLqueline KDOB:[birth year] (49 yo F)Acc No.[id number]:10/22/2024 UNLOCKED PROGRESS NOTE Progress Note Patient: Rylee MCDOWELL Provider: Randal Swenson MD (TTC) :1975 A ge:49 Y S ex:Female Date:10/22/2024 Address:[facility] [address] [place], [place] [id number] Subjective: * Chief Complaints: * 1 . 3 week f/u. * Medical History: Objective: * Vitals: Assessment: Plan: * Treatment: * * Electronic signature of Mansoor Swenson MD, [id number] on 01/09/2025 at 11:52 AM EDT Sign off status: Pending Visit Status: C ANCPHONE (Cancelled Phone) * Provider: Randal Swenson MD (TTC) Date: 0 10/22/2024 Generated for Printi ng/Faxing/eTransmitting on: 1 11:52 AM EDT
--- OUTSIDE RECORDS SUMMARY | 2024-10-28 09:30 | XMS_ITS ---
Author Organization [facility] in [place] Address [address] [place] [address] Care Team Providers Care Shell Shop Supervisor Name Role Phone Mansoor Swenson Primary Care Provider [phone] Katerine Chance [phone] REASON FOR VISIT MD Encounters Encounter Location Date Provider Diagnosis [facility] [address] [place] [address] 10/28/2024 Katerine Chance Plan Of Treatment No Information Progress Notes * Rylee MERRILL KDOB:[birth year] (49 yo F)Acc No.[id number]:10/28/2024 UNLOCKED PROGRESS NOTE Progress Notes Patient: Rylee MCDOWELL Provider: Sandeep Chance M.D. :1975 A ge:49 Y S ex:Female Date:10/28/2024 Address:[facility] [address] [place], [place] [id number] Pcp:Mansoor Swenson Subjective: * Chief Complaints: * 1 . MD. * Medical History: Objective: * Vitals: Assessment: Plan: * Treatment: * * Electronic signature of Fannie Chance MD, [id number] on 01/09/2025 at 11:51 AM EDT Sign off status: Pending Visit Status: C ANC (Cancelled) * Provider: Sandeep Chance M.D. Date: 0 10/28/2024 Generated for Printi ng/Famaryg/eTransmitting on: 1 11:51 AM EDT
--- OUTSIDE RECORDS SUMMARY | 2024-12-26 09:35 | XMS_ITS | Encounter Summary ---
Demographics Address [address] [place] [address] Mobile Phone Home Phone Mobile Phone Preferred Language Romansh Marital Status Single Oriental Orthodox Affiliation Unknown Race White Ethnic Group Not or Lati no Author Organization [facility] [employer] [facility] tem Address [id number] [address] [place] [address] Care Team Providers Care Group Therapist Name Role Phone No Pcp, No Pcp Primary Care Provider Unavailabl e Reason for Referral * Diagnostic Imaging (Routine) - Closed Specialty Diagnoses / Procedures Referred By Contac t Referred To Contact Radiology Diagnoses MPN (myeloproliferative neoplasm) (CMS-HCC) Lymphadenopathy Procedures PET CT skull [place] [id number] [place] [id number] Phone: tel: fax: Referral ID Status Reason Start Date Expiration Date Visits Re quested Visits Authorized [id number] Closed 12/22/2024 12/22/2025 1 1 Reason for Visit * Auth/Cert (Routine) Specialty Diagnoses / Procedures Referred By Contac t Referred To Contact Diagnoses Chronic myeloproliferative disease Generalized enlarged lymph nodes Procedures PET CT SKULL TO THIGH Referral ID Status Reason Start Date Expiration Date Visits Re quested Visits Authorized [id number] 1 1 Encounter Details Date Type Department Care Team (Latest Contact Info) Description 12/26/2024 9:35 AM EDT - 12/26/2024 11:59 PM EDT Hospital Encounter [facility] [address] [place] [id number] MPN (myeloproliferative neoplasm) (CMS-HCC); Lymphadenopathy Discharge Disposition: Home Social History Tobacco Use Types Packs/Day Years Used Date Smoking Tobacco: Every Day Cigarettes Smokeless Tobacco: Never Alcohol Use Standard Drinks/Week Comments Yes 0 [...] on file documented as of this encounter Last Filed Vital Signs Vital Sign Reading Time Taken Comments Blood Pressure - - Pulse - - Temperature - - Respiratory Rate - - Oxygen Saturation - - Inhaled Oxygen Concentration - - Weight 64.9 kg (143 lb) 12/26/2024 7:00 AM EDT Height - - Body Mass Index 23.08 10/03/2023 3:09 PM EDT documented in this encounter Medications at Time of Discharge albuterol (PROVENTIL HFA;VENTOLIN HFA) 90 mcg/actuation inhaler Inhale 2 puffs every 6 (six) hours as needed for wheezing. albuterol (PROVENTIL,STEPHEN TIANA) 2.5 mg /3 mL (0.083 %) nebulizer solution Inhale 3 mL (2.5 mg total) by nebulization every 6 (six) hours as needed for wheezing. busPIRone (BUSPAR) 15 mg tablet Take 1 tablet (15 mg total) by mouth. 03/08/2017 carvedilol (COREG) 12.5 mg tablet Take 1 tablet (12.5 mg total) by mouth in the morning and 1 tablet (12.5 mg total) in the evening. Take with meals. gabapentin (NEURONTIN) 300 mg capsule Take 1 capsule (300 mg total) by mouth. 03/08/2017 LORazepam (ATIVAN) 1 mg tablet Take 1 tablet (1 mg total) by mouth 3 (three) times a day as needed for anxiety for up to 10 doses. 10 tablet 02/28/2017 omeprazole (PriLOSEC) 40 mg capsule Take 1 capsule (40 mg total) by mouth in the morning. propranolol (INDERAL) 20 mg tablet Take 1 tablet (20 mg total) by mouth 3 (three) times a day. tiotropium (SPIRIVA) 18 mcg per inhalation capsule Place 1 capsule into inhaler and inhale once daily. documented as of this encounter Plan of Treatment Not on file documented as of this encounter Procedures Procedure Name Priority Date/Time Associated Diagnosis Comments PET CT SKULL TO THIGH Routine 12/26/2024 12:03 PM EDT MPN (myeloproliferative neoplasm) (CMS-HCC) Lymphadenopathy documented in this encounter Results * PET CT skull to thigh (12/26/2024 12:03 PM EDT) Anatomical Region Laterality Modality Nuc Med N/A Positron Emissio n Tomography (PET) 12/29/2024 10:5 2 AM EDT Narrative 12/29/2024 11:31 AM EDT FDG PET/CT INDICATION: MPN (myeloproliferative neoplasm) (CMS-HCC); Lymphadenopathy, staging PRIOR PET/CT: None available at time of dictation. CORRELATIVE ANATOMIC IMAGING: None available at time of dictation. PROCEDURE: PET/CT was performed following intravenous administration of 10.9 mCi F-18 FDG with images obtained from the skull base through the thighs. Fasting glucose was 90 mg/dL at the time of administration. Injection site: Left hand. CT was performed utilizing free breathing technique and nondiagnostic collimation for the purposes attenuation correction and localization of radiotracer activity. FINDINGS: Overall PET and CT image quality and inter-modality registration are satisfactory. Liver Reference: SUVmean 1.9 Blood Pool: SUVmean 1.6 Head and Neck: Left lingual hypermetabolism. Hypermetabolic left 3, 4, 5b lymph nodes. Thorax: Hypermetabolic bilateral axillary lymphadenopathy, upper paratracheal lymph nodes, prevascular lymph nodes. Most FDG avid nodes in the right axilla, 10.2. 1 cm left upper lobe nodule does not demonstrate significant FDG activity, most compatible with benignity. Abdomen and Pelvis: Hypermetabolic left perinephric, upper retroperitoneal and rachid hepatis lymph nodes, Deauville 4. Hypermetabolic right perinephric focus, presumed ureter in the absence of other Deauville 5 lymphadenopathy. No splenomegaly. Osseous Structures: Suspect Osseous involvement of the cervical spine. Right medial thigh hypermetabolism, could reflect inflammatory etiology versus additional site of Deauville [address] Findings: Anasarca. Small volume ascites. IMPRESSION: * Deauville 5 disease. Hypermetabolic lymph nodes above and below the diaphragm. Most hypermetabolic nodes are in the right axilla. * Suspect osseous involvement of disease within the cervical spine. Severe degenerative disease can be initially possible given the interval, the, consider confirmatory MRI. Finalized by Marcos Vides on 12/29/2024 11:31 AM Procedure Note Marcos Vides MD - 12/29/2024 FDG PET/CT INDICATION: MPN (myeloproliferative neoplasm) (CMS-HCC); Lymphadenopathy,staging PRIOR PET/CT: None available at time of dictation. CORRELATIVE ANATOMIC IMAGING: None available at time of dictation. PROCEDURE: PET/CT was performed following intravenous administration of 10.9 mCi F-18FDG with images obtained from the skull base through the thighs. Fastingglucose was 90 mg/dL at the time of administration. Injection site: [place]. CT was performed utilizing free breathing technique andnondiagnostic collimation for the purposes attenuation correction and localization ofradiotracer activity. FINDINGS: Overall PET and CT image quality and inter-modalityregistration are satisfactory. Liver Reference: SUVmean 1.9 Blood Pool: SUVmean 1.6 Head and Neck: Left lingual hypermetabolism. Hypermetabolic left 3, 4, 5blymph nodes. Thorax: Hypermetabolic bilateral axillary lymphadenopathy, upperparatracheal lymph nodes, prevascular lymph nodes. Most FDG avid nodes inthe right axilla, 10.2. 1 cm left upper lobe nodule does not demonstrate significant FDG activity,most compatible with benignity. Abdomen and Pelvis: Hypermetabolic left perinephric, upper retroperitoneal and rachid hepatislymph nodes, Deauville 4. Hypermetabolic right perinephric focus, presumed ureter in the absence ofother Deauville 5 lymphadenopathy. No splenomegaly. Osseous Structures: Suspect Osseous involvement of the cervical spine.Right medial thigh hypermetabolism, could reflect inflammatory etiologyversus additional site of Deauville [address] Findings: Anasarca. Small volume ascites. IMPRESSION: * Deauville 5 disease. Hypermetabolic lymph nodes above and below thediaphragm. Most hypermetabolic nodes are in the right axilla. * Suspect osseous involvement of disease within the cervical spine.Severe degenerative disease can be initially possible given the interval,the, consider confirmatory MRI. 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 Lymphadenopathy Enlargement of lymph nodes documented in this encounter Administered Medications Inactive Administered Medications - up to 3 most recent administrations Medication Order MAR Action Action Date Dose Rate Site fluorodeoxyglucose F 18 (FDG) injection 9.086 millicurie 9.086 millicurie (0.14 brice curie/kg 64.9 kg), intravenous, Once in imaging, contrast, Radiopharmaceutical, Starting on Sun12/26/24 at 0938, For 1 dose, Indications: diagnostic imagingIndications:diagno stic imaging Given 12/26/2024 9:51 AM EDT 10.93 millicuries sodium chloride 0.9 % flush 10 mL 10 mL, intravenous, As needed, line care, PET CT, Starting on Sun12/26/24 at 0938, For 1 dose Given 12/26/2024 9:51 AM EDT 10 mL documented in this encounter Care Teams Group Therapist Relationship Specialty Start Date End Date No Pcp, No Pcp ROSELIA Naik [id number] PCP - General Family Medicine 05/16/17 documented as of this encounter
--- OUTSIDE RECORDS SUMMARY | 2024-12-30 07:15 | XMS_ITS ---
Author Organization [facility] [place] Address [address] [place] [address] Care Team Providers Care Labor Mediator Name Role Phone Mansoor Swenson Primary Care Provider Allergies Allergen (clinical drug ingredient) Drug/Non Drug Allergy documented on EMR Reaction Allergy Type Onset Date Status prednisone predniSONE Insides Feel Like On Fire Drug Allergy Active REASON FOR VISIT f/u on Cyst in groin- busted again Sunday- was still draining a little yesterday, [facility] Medications Medication SIG (Take, Route, Frequency, Duration) Notes Start Date End Date Status Potassium Chloride ER 20 MEQ 1 tablet with food Orally Once a day; Duration: 90 days HOLDING Active oxyCODONE HCl 5 MG 1 tablet as needed Orally every 6 hrs; Duration: 30 days M54.9 Active Omeprazole 40 MG 1 tablet Oral Twice Daily; Duration: 90 days Active Losartan Potassium 50 MG 1 tablet Orally Once a day; Duration: 90 days Active Promethazine HCl 12.5 MG 1 tablet as needed Orally every 6 hrs PRN Active Glucerna Shake - Drink 237ml Orally three times daily DXE43; Duration: 30 days 90 Bottles for 30 days- needs 21,330 ml for one month 11/18/2024 Active Cefdinir 300 MG 2 capsule Orally once a day; Duration: 10 days 12/24/2024 Active Albuterol Sulfate HFA 108 (90 Base) MCG/ACT INHALE 2 PUFFS EVERY 6 HOURS IF NEEDED FOR WHEEZING OR SHORTNESS OF BREATH. Inhalation; Duration: 90 Days Active Gabapentin 600 MG TAKE 1/2 TABLET BY MOUTH EVERY 8 HOURS Oral; Duration: 30 days Active Doxycycline Monohydrate 100 MG 1 tablet [...] your fir st cigarette? Within 5 minutes Vital Signs Weight 83.6 lbs 12/30/2024 Height 66 in 12/30/2024 Blood pressure systolic 104 mm Hg 12/31/19 25 Blood pressure diastolic 68 mm Hg 025 BMI 13.49 kg/m2 12/30/2024 Encounters Encounter Location Date Provider Diagnosis [facility] [address] [place] [address] 12/30/2024 Mansoor Leela Garg L02.92 Assessments Encounter Date Diagnosis (ICD Code) Assessment Notes Treatment Notes Treatment Clinical Notes Section Notes 12/30/2024 Boil (ICD-10 - L02.92) Plan Of Treatment Pending Test Test Name Order Date CULTURE WOUND 12/30/2024 Progress Notes * Rylee MERRILL KDOB:[birth year] (49 yo F)Acc No.[id number]:12/30/2024 Progress Note Patient: Ya MCDOWELLline Yahir Provider: Randal Swenson ([facility])MD :1975 A ge:49 Y S ex:Female Date:12/30/2024 Address:[facility] [address] Check In:11:06 AM ESTCheck O ut:12:07 PM EST Subjective: * Chief Complaints: * 1 . f/u on Cyst in groin- busted again Sunday- was still draining a little yesterday. 2. having thyroid bx tomorrow at [facility]. * HPI: G eneral: purulent draiage still but overall feels some better. * Active Problem List I10 Hypertension Modified On:10/01/2024W/U Status:confirmed J45.909 Asthma Modified On:10/01/2024W/U Status:confirmed J44.9 COPD (chronic obstru ctive pulmonary [...] Boil Modified On:12/24/2024 Status:confirmed * Medical History: H ypertension, Asthma, COPD (chronic obstructive pulmonary disease), Anemia, Hypercholesteremia. * Surgical History: C lavical , Tubal , Gall Bladder Removal , Appendectomy , Exploratory , Bone Marrow Biopsy . * Hospitalization/Major Diagno stic Procedure: A nemia, Weakness 08/2024, [place]/ Myeloproliferative Neoplasms 09/2024, abd pain 12/18. * Family History: F ather: . M [...] your first cigarette? W ithin 5 minutes * Medications: T aking Albuterol Sulfate HFA 108 (90 Base) MCG/ACT Aerosol Solution INHALE 2 PUFFS EVERY 6 HOURS IF NEEDED FOR WHEEZING OR SHORTNESS OF BREATH. Inhalation , Taking Cefdinir 300 MG Capsule 2 capsule Orally once a day , Taking Doxycycline Monohydrate 100 MG Tablet 1 tablet Orally bid , Taking Gabapentin 600 MG Tablet TAKE 1/2 TABLET BY MOUTH EVERY 8 HOURS Oral , Taking Glucerna Shake(Nutritional Supplements) - Liquid Drink 237ml Orally three times daily DXE43 , Notes to Pharmacist: 90 Bottles for 30 days- needs 21,330 ml for one month, Taking Losartan Potassium 50 MG Tablet 1 tablet Orally Once a day , Taking Omeprazole 40 MG Capsule Delayed Release 1 tablet Oral Twice Daily , Taking oxyCODONE HCl 5 MG Tablet 1 tablet as needed Orally every 6 hrs M54.9, Taking Potassium Chloride ER 20 MEQ Tablet Extended Release 1 tablet with food Orally Once a day , Notes to Pharmacist: HOLDING, Taking Promethazine HCl 12.5 MG Tablet 1 tablet as needed Orally every 6 hrs , Notes to Pharmacist: PRN, Medication List reviewed and reconciled with the patient * Allergies: p redniSONE: Insides Feel Like On Fire. Objective: * Vitals: W t:83.6lbs, Ht: 66 in, BP:104/68mm Hg, BMI:13.49Index, Ht-cm: 167.64 cm, Wt-k.92 kg. * Examination: A bdomen Exam:: B oikld drained and cx done. Assessment: * Assessment: 1. B oil - L02.92 (Primary) Plan: * Treatment: * * Sign off status: Completed Visit Status: C HK (Check Out) true * Provider: Randal Swenson ([facility])MD Date: Generated for Colby woods/Titi/Krista on: 11:52 AM EDT History and Physical Notes * HPI (History of Present Illness) Category Sub-Category Detail Notes Category Not es General purulent draiag e still but overall feels some better Examination Category Sub-Category Detail Notes Category Not es Abdomen Exam: Boikld drained and cx done
--- OUTSIDE RECORDS SUMMARY | 2025-01-09 11:52 | XMS_ITS | Encounter Summary ---
Demographics Address [address] [facility] [address] [place] [address] Mobile Phone Home Phone Work Phone Email Address Preferred Language en Marital Status Nondenominational Affiliation Unknown Race White Ethnic Group Not or Lati no Author Organization [facility] Address [address] [place] [address] Care Team Providers Care Otolaryngology Rep Name Role Phone Domi Altamirano NP Unavailable [phone] Hiren Horton MD Primary Care Provider Domi Altamirano DIE CASTING MACHINE MAINTAINER Unavailable [phone] Dmoi Altamirano NP Unavailable [phone] Unallocated, Noms Provider Primary Care Provi taylor Encounter Details Date Type Department Care Team (Late st Contact Info) Description 09/16/2024 Orders Only [facility] [address] [place] [address] Domi Altamirano, DIE CASTING MACHINE MAINTAINER [address] [facility] [place] [address] Social History Tobacco Use Types Packs/Day Years [...] Sometimes 10/08/2023 Social Connection and Isolation Panel Answer Date Recorded In a typical week, how many times do you talk on the phone with family, friends, or neighbors? Once a week 10/08/2023 How often do you get togethe r with friends or relatives? Patient declined 10/08/2023 How often do you attend orthodoxy or spiritism serv ices? Never 10/08/2023 Do you belong [...] medical care, and heating? Very hard 10/08/2023 [facility] of Occupat ional Health - Occupational Stress [...] time in the past 12 m [facility], were you homeless or living in [...] on filedocumented in this encounter Care Teams Otolaryngology Rep Relationship Specialty Start Date End Date Hiren Horton MD PCP - General Family Medicine 07/26/23 10/13/24 Domi Altamirano NP [address] [place] [place] [address] PCP - [facility] 08/24/24 Unallocated, Nommauri Ferrell MD [address] [facility] [place] [address] PCP - General Family Medicine 10/14/24 Domi Altamirano NP Nurse Practitioner Family Medicine 03/26/22 10/13/24 Domi Altamirano NP Nurse Practitioner Family Medicine 07/26/23 10/13/24 documented as of this encounter
--- OUTSIDE RECORDS SUMMARY | 2025-01-09 11:52 | XMS_ITS | Encounter Summary ---
Demographics Address [address] [facility] [address] [place] [address] Mobile Phone Home Phone Work Phone Email Address Preferred Language en Marital Status Taoist Affiliation Unknown Race White Ethnic Group Not or Lati no Author Organization [facility] Address [address] [place] [address] Care Team Providers Care Gyro Mechanic Name Role Phone Domi Altamirano NP Unavailable [phone] Hiren Horton MD Primary Care Provider Domi Altamirano INTERNET WEBMASTER Unavailable [phone] Domi Altamirano NP Unavailable [phone] Unallocated, Noms Provider Primary Care Provi taylor Encounter Details Date Type Department Care Team (Late st Contact Info) Description 09/23/2024 Abstract [facility] [address] [place] [address] Domi Altamirano, INTERNET WEBMASTER [address] [facility] [address] [address] Social History Tobacco Use Types Packs/Day Years [...] How often do you attend taoism or caodaism serv ices? Never 10/08/2023 Do you belong [...] Very hard 10/08/2023 [facility] of Occupat ional Health - Occupational Stress [...] time in the past [address] [facility], were you homeless or living [...] on filedocumented in this encounter Care Teams Gyro Mechanic Relationship Specialty Start Date End Date Hiren Horton MD PCP - General Family Medicine 07/26/23 10/13/24 Domi Altamirano NP [address] [place] [address] PCP - [facility] 08/24/24 Unallocated, Noms MD Mariaelena [address] [place] [address] PCP - General Family Medicine 10/14/24 Domi Altamirano NP Nurse Practitioner Family Medicine 03/26/22 10/13/24 Domi Altamirano NP Nurse Practitioner Family Medicine 07/26/23 10/13/24 documented as of this encounter
--- OUTSIDE RECORDS SUMMARY | 2025-01-09 11:52 | XMS_ITS | Clinical Summary ---
Demographics Address [address] [facility] [address] [place] [address] Mobile Phone Home Phone Email Address Preferred Language ENG Marital Status Single Spiritism Affiliation Unknown Race White Ethnic Group Not or Lati no Author Organization [facility] Address [address] [place] [address] Care Team Providers Care Order Filler Name Role Phone Lizzette Malik MANAGER MULTICULTURAL Primary Care Provider [phone] Domi Altamirano MANAGER MULTICULTURAL Unavailable [phone] Allergies Active Allergy Reactions Criticality Noted Date [...] Care Team Description 12/08/2024 Patient Update Hematology/Oncology [address] [place] [address] Self from Last 3 Months Social History [...] Recently Relevant to Health Maintenance Results * IN-MR MRCP IMPORT (12/03/2024) Anatomical Region Laterality Modality Other 12/03/2024 Narrative 12/08/2024 2:54 PM EDT Images were obtained outside of [facility] Procedure Note Provider, [facility] [place] - 12/08/2024 Images were obtained outside of [facility] us [facility] Provider MRI Final Result * CT-CT abdomen pelvis wo con IMPORT (11/25/2024) Anatomical Region Laterality Modality Other 11/25/2024 Narrative 12/08/2024 2:54 PM EDT Images were obtained outside of [facility] Procedure Note Provider, [facility] [place] - 12/08/2024 Images were obtained outside of [facility] us [facility] Provider RADIOLOGY Final Result * US-US spleen IMPORT (11/12/2024) Anatomical Region Laterality Modality Other 11/12/2024 Narrative 12/08/2024 2:56 PM EDT Images were obtained outside of [facility] Procedure Note Provider, [facility] [place] - 12/08/2024 Images were obtained outside of [facility] us [facility] Provider RADIOLOGY Final Result * US-US liver IMPORT (11/12/2024) Anatomical Region Laterality Modality Other 11/12/2024 Narrative 12/08/2024 2:54 PM EDT Images were obtained outside of [facility] Procedure Note Provider, [facility] [place] - 12/08/2024 Images were obtained outside of [facility] us [facility] Provider RADIOLOGY Final Result * CT-CT guided bone marrow bx/aspir IMPORT (10/10/2024) Anatomical Region Laterality Modality Other 10/10/2024 Narrative 12/08/2024 3:01 PM EDT Images were obtained outside of [facility] Procedure Note Provider, [facility] [place] - 12/08/2024 Images were obtained outside of [facility] Cc Provider RADIOLOGY Final Result * (ABNORMAL) COMP METABOLIC PANEL (06/19/2017 10:35 PM EDT) Pathologist [facility] Protein, Total 6.9 6.3 - 8.0 g/dL 06/19/2017 11:09 PM EDT [facility] Albumin 4.4 3.9 - 4.9 g/dL 06/19/2017 11:09 PM EDT [facility] Calcium 9.4 8.5 - 10.2 mg/dL 06/19/2017 11:09 PM EDT [facility] Bilirubin, Total <0.2(L) 0.2 - 1.3 mg/dL 06/19/2017 11:09 PM EDT [facility] Alkaline Phosphatase 64 32 - 117 U/L 06/19/2017 11:09 PM EDT [facility] AST 11(L) 13 - 35 U/L 06/19/2017 11:09 PM EDT [facility] Glucose 100(H) 74 - 99 mg/dL 06/19/2017 11:09 PM EDT [facility] Comment: The [place] Diabetes Association (ADA) provides guidance for cutoff [...] Medical Care in Diabetes 2016, [place] Diabetes Association. Diabetes Care. 2016.39(Suppl 1). BUN 11 7 - 21 mg/dL 06/19/2017 11:09 PM EDT [facility] Creatinine 0.75 0.58 - 0.96 mg/dL 06/19/2017 11:09 PM EDT [facility] Sodium 138 136 - 144 mmol/L 06/19/2017 11:09 PM EDT [facility] Potassium 4.0 3.7 - 5.1 mmol/L 06/19/2017 11:09 PM T [facility] Chloride 103 97 - 105 mmol/L 06/19/2017 11:09 PM T [facility] CO2 24 22 - 30 mmol/L 06/19/2017 11:09 PM T [facility] Anion Gap 11 9 - 18 mmol/L 06/19/2017 11:09 PM [facility] ALT 11 7 - 38 U/L 06/19/2017 11:09 PM [facility] eGFR- >60 06/19/2017 11:09 PM [facility] eGFR-All Other Races >60 . 06/19/2017 11:09 PM [facility] Comment: eGFR (Estimated GFR) Units of [...] us Evan Ruiz MD LABORATORY Final Result [facility] [address] [place] [address] from Last 3 Months or Most Recently Relevant to Health Maintenance Care Teams Order Filler Relationship Specialty Start Date End Date Lizzette Malik CNP PCP - General Family Medicine 12/04/14 Domi Altamirano, MANAGER MULTICULTURAL Referring Family Medicine 10/14/21
--- OUTSIDE RECORDS SUMMARY | 2025-01-09 11:52 | XMS_ITS | Encounter Summary ---
Author Organization [employer] [facility] tem Address [id number] [address] [place] [address] Care Team Providers Care Helpdesk Administrator Name Role Phone No Pcp, No Pcp [...] on filedocumented in this encounter Care Teams Helpdesk Administrator Relationship Specialty Start Date End Date No Pcp, [place] [address] PCP - General Family Medicine 05/16/17 documented as of this encounter
--- OUTSIDE RECORDS SUMMARY | 2025-01-09 11:52 | XMS_ITS | Encounter Summary ---
Demographics Address [address] [facility] [address] [place] [address] Mobile Phone Home Phone Email Address Preferred Language ENG Marital Status Single Jewish Affiliation Unknown Race White Ethnic Group Not or Lati no Author Organization [facility] Address [address] [place] [address] Care Team Providers Care Relay Engineer Name Role Phone Lizzette Malik CNP Primary Care Provider [phone] Domi Altamirano SENIOR SOFTWARE MANAGER Unavailable [phone] Source Comments In the event this information is protected by the Federal Confidentiality of Alcohol and Drug AbusePatient Records regulations: The Federal rules restrict any use of the information to criminally investigate or prosecute any alcohol or drug abuse patient.[facility] Reason for Visit * Reason Comments Radiology CT Encounter Details Date Type Department Care Team (Late st Contact Info) Description 06/20/2017 Radiology Radiology [address] [place] [id number] Lizzette Malik, SENIOR SOFTWARE MANAGER [address] [place] [address] Social History Tobacco Use Types [...] on filedocumented in this encounter Care Teams Relay Engineer Relationship Specialty Start Date End Date Lizzette Malik CNP PCP - General Family Medicine 12/04/14 Domi Altamirano CNP Referring Family Medicine 10/14/21 documented as of this encounter
--- OUTSIDE RECORDS SUMMARY | 2025-01-09 11:52 | XMS_ITS | Encounter Summary ---
Demographics Address [address] [facility] [address] [place] [address] Mobile Phone Home Phone Work Phone Email Address Preferred Language en Marital Status Faith Affiliation Unknown Race White Ethnic Group Not or Lati no Author Organization [facility] Address [address] [place] [address] Care Team Providers Care Dry Roaster Name Role Phone Domi Altamirano NP Unavailable [phone] Hiren Horton MD Primary Care Provider [phone] Domi Altamirano PONY ROLL FINISHER Unavailable [phone] Domi Altamirano NP Unavailable [phone] Unallocated, [facility]oms Provider Primary Care Provi taylor Encounter Details Date Type Department Care Team (Late st Contact Info) Description 09/16/2024 Abstract [facility] [address] [place] [address] Domi Altamirano, PONY ROLL FINISHER [address] [place] [id number] Social History Tobacco Use Types Packs/Day Years [...] How often do you attend lutheran or rastafari serv ices? Never 10/08/2023 Do you belong [...] medical care, and heating? Very hard 10/08/2023 [facility] [place] of Occupat ional Health - Occupational Stress [...] filedocumented in this encounter Care Teams Dry Roaster Relationship Specialty Start Date End Date Hiren Horton MD PCP - General Family Medicine 07/26/23 10/13/24 Domi Altamirano NP [address] [place] [address] PCP - [facility] 08/24/24 Unallocated, Noms MD [address] [place] [address] PCP - General Family Medicine 10/14/24 Domi Altamirano NP Nurse Practitioner Family Medicine 03/26/22 10/13/24 Domi Atlamirano NP Nurse Practitioner Family Medicine 07/26/23 10/13/24 documented as of this encounter
--- OUTSIDE RECORDS SUMMARY | 2025-01-09 11:52 | XMS_ITS | Encounter Summary ---
Demographics Address [address] [facility] [address] [place] [address] Mobile Phone Home Phone Work Phone Email Address Preferred Language en Marital Status Oriental Orthodox Affiliation Unknown Race White Ethnic Group Not or Lati no Author Organization [facility] Address [address] [place] [address] Care Team Providers Care Security Inspector Name Role Phone Domi Altamirano NP Unavailable [phone] Hiren Horton MD Primary Care Provider [phone] Domi Altamirano MAINTENANCE ASSOCIATE Unavailable [phone] Domi Altamirano NP Unavailable [phone] Unallocated, Noms Provider Primary Care Provi taylor Encounter Details Date Type Department Care Team (Late st Contact Info) Description 09/17/2024 Abstract [facility] [address] [place] [address] Domi Altamirano, MAINTENANCE ASSOCIATE [address] [facility] [place] [address] Social History Tobacco Use Types Packs/Day Years [...] How often do you attend jewish or hindu serv ices? Never 10/08/2023 Do you belong [...] and heating? Very hard 10/08/2023 [facility] of Occupat ional Health - Occupational Stress [...] filedocumented in this encounter Care Teams Security Inspector Relationship Specialty Start Date End Date Hiren Horton MD PCP - General Family Medicine 07/26/23 10/13/24 Domi Altamirano NP [address] [place] [address] PCP - [facility] 08/24/24 Unallocated, Noms MD [address]elena [address] [place] [address] PCP - General Family Medicine 10/14/24 Domi Altamirano NP Nurse Practitioner Family Medicine 03/26/22 10/13/24 Domi Altamirano NP Nurse Practitioner Family Medicine 07/26/23 10/13/24 documented as of this encounter
--- OUTSIDE RECORDS SUMMARY | 2025-01-09 11:52 | XMS_ITS | Encounter Summary ---
Demographics Address [address] [facility] [address] [place] [address] Mobile Phone Home Phone Work Phone Email Address Preferred Language en Marital Status Synagogue Affiliation Unknown Race White Ethnic Group Not or Lati no Author Organization [facility] Address [address] [place] [address] Care Team Providers Care Technical Clerk Name Role Phone Domi Altamirano NP Unavailable [phone] Hiren Horton MD Primary Care Provider Domi Altamirano SOCIAL MEDIA EXECUTIVE Unavailable [phone] Domi Altamirano NP Unavailable [phone] Unallocated, Noms Provider Primary Care Provi taylor Encounter Details Date Type Department Care Team (Late st Contact Info) Description 09/22/2024 Abstract [facility] [address] [place] [address] Domi Altamirano, SOCIAL MEDIA EXECUTIVE [address] [facility] [place] [address] Social History Tobacco Use Types Packs/Day Years [...] How often do you attend zoroastrian or pentecostalism serv ices? Never 10/08/2023 Do you belong [...] medical care, and heating? Very hard 10/08/2023 [facility] [place] of Occupat ional Health - Occupational Stress [...] filedocumented in this encounter Care Teams Technical Clerk Relationship Specialty Start Date End Date Hiren Horton MD PCP - General Family Medicine 07/26/23 10/13/24 Domi Altamirano NP [address] [place] [address] PCP - [facility] 08/24/24 Unallocated, Noms MD [address]elena [address] [place] [address] PCP - General Family Medicine 10/14/24 Domi Altamirano NP Nurse Practitioner Family Medicine 03/26/22 10/13/24 Domi Altamirano NP Nurse Practitioner Family Medicine 07/26/23 10/13/24 documented as of this encounter
--- OUTSIDE RECORDS SUMMARY | 2025-01-09 11:52 | XMS_ITS | Encounter Summary ---
Demographics Address [address] [facility] [address] [place] [address] Mobile Phone Home Phone Work Phone Email Address Preferred Language en Marital Status Church Affiliation Unknown Race White Ethnic Group Not or Lati no Author Organization [facility] Address [address] [place] [address] Care Team Providers Care Tank Builder And Erector Name Role Phone Domi Altamirano SORTING COWS WORKER Unavailable [phone] Hiren Horton MD Primary Care Provider [phone] Domi Altamirano SORTING COWS WORKER Unavailable [phone] Domi Altamirano NP Unavailable [phone] Unallocated, Noms Provider Primary Care Provi taylor Encounter Details Date Type Department Care Team (Late st Contact Info) Description 09/17/2024 Orders Only [facility] [address] [facility] [id number] Li Ku MD [address] [place] [address] Social History Tobacco Use Types Packs/Day [...] How often do you attend episcopalian or denominational serv ices? Never 10/08/2023 Do you belong [...] medical care, and heating? Very hard 10/08/2023 [facility] of Occupat ional Health - Occupational [...] any time in the past 12 m [facility], were you homeless or living in [...] on filedocumented in this encounter Care Teams Tank Builder And Erector Relationship Specialty Start Date End Date Hiren Horton MD PCP - General Family Medicine 07/26/23 10/13/24 Domi Altamirano NP [address] [place] [address] [facility] 08/24/24 Unallocated, [place] [address] PCP - General Family Medicine 10/14/24 Domi Altamirano NP Nurse Practitioner Family Medicine 03/26/22 10/13/24 Domi Altamirano NP Nurse Practitioner Family Medicine 07/26/23 10/13/24 documented as of this encounter
--- OUTSIDE RECORDS SUMMARY | 2025-01-09 11:52 | XMS_ITS | Patient Health Record ---
Author Organization The [facility] in [place] Address [address] [place] [address] Care Team Providers Care Heel Packer Name Role Phone Mansoor Swenson Primary Care Provider [phone] Katerine Chance Unavailable [phone] Allergies Allergen (clinical drug ingredient) Drug/Non Drug Allergy documented on EMR Reaction Allergy Type Onset Date Status prednisone predniSONE Insides Feel Like On Fire Drug Allergy Active Results Component Value Reference Range Notes CBC AUTO DIFF Reviewed date:10/20/2024 01:00:43 PM Interpretation: Performing Lab: Notes/Report: [facility] , White Blood Count 15.4 [...] 3/uL Performing Lab: see note ML - [facility] LB PROF 14(COMP METB) Reviewed date:10/20/2024 01:42:51 PM Interpretation: Performing Lab: Notes/Report: [facility] , Sodium 138 136-145 mmol/L Potassium 2.5 3.5-5.1 mmol/L RESULTS JIN D TO JUAN RUBALCAVA TALENT RECRUITER at 1320 Chloride 94 98-107 mmol/L Carbon [...] 0.2 Performing Lab: see note ML - [facility] LB CBC AUTO DIFF Reviewed date:12/04/2024 07:07:25 PM Interpretation: Performing Lab: Notes/Report: [facility] , White Blood Count 23.1 [...] fL Performing Lab: see note ML - [facility] LB PROF 14(COMP METB) Reviewed date:12/07/2024 12:58:32 PM Interpretation: Performing Lab: Notes/Report: [facility] , Sodium 133 136-145 mmol/L [...] Performing Lab: see note ML - [facility] LB CBC AUTO DIFF Reviewed date:11/18/2024 08:03:28 PM Interpretation: Performing Lab: Notes/Report: [facility] , White Blood Count 17.0 [...] 3/uL Performing Lab: see note ML - [facility] LB LACTATE or LACTIC ACID Reviewed date:09/18/2024 07:21:43 PM Interpretation: Performing Lab: Notes/Report: [facility] , Lactate/Lactic Acid 1.2 0.4-2.0 mmol/L Performing Lab: see note ML - [facility] LB PROF 14(COMP METB) Reviewed date:09/18/2024 07:21:43 PM Interpretation: Performing Lab: Notes/Report: [facility] , Sodium 138 136-145 mmol/L [...] Globulin Ratio 0.3 Performing Lab: see note [facility] LB Blood Culture 1 Reviewed date:09/23/2024 07:04:33 PM Interpretation: Performing Lab: Notes/Report: PEDS BOTTLE [facility] , Blood Culture 1 See Below For Report Blood Culture 1 NG5D NO GROWTH AT 5 DAYS.^NO GROWTH AT 5 DAYS. Performing Lab: see note [facility] LB Blood Culture 2 Reviewed date:09/23/2024 07:04:33 PM Interpretation: Performing Lab: Notes/Report: PEDS BOTTLE [facility] , Blood Culture 2 See Below For Report Blood Culture 2 NG5D NO GROWTH AT 5 DAYS.^NO GROWTH AT 5 DAYS. Performing Lab: see note [facility] LB B pertussis IgG/M/A Ab Reviewed date:09/23/2024 07:04:33 PM Interpretation: Performing Lab: Notes/Report: [facility] , B pertussis IgG Ab 2.04 0.00-0.94 index Negative <0.95 Equivocal 0.95 - 1.04 Positive >1.04 B pertussis IgM Ab 1.2 0.0-0.9 index Negative <1.0 Borderline 1.0 - 1.1 Positive >1.1 B pertussis IgA Ab 1.1 0.0-0.9 index Negative <1.0 Borderline 1.0 - 1.1 Positive >1.1 Performed at: - [address] [id number] Insurance Claim Auditor: Opal Gibbs MD, Phone: [phone] Performing Lab: see note - [facility] LB XR chest 2V Reviewed date:09/21/2024 01:12:51 PM Interpretation: Performing Lab: Notes/Report: Source Facility: [place] [address] XRay Report Signed Patient: RYLEE BURTON MR#: [id number] : 1975 Acct:[id number] Age/Sex: 49 / F ADM Date: 09/15/24 Loc: MS 202- Attending Dr: Meenakshi Swenson M.D. Ordering Physician: Meenakshi Swenson M.D. Date of Service: 09/19/24 Procedure(s): XR chest 2V Accession Number(s): [id number] cc: Domi Altamirano NP; Meenakshi Swenson M.D. [place] [address] Patient Name: RYLEE BURTON MRN: [id number] date: 1975 Sex: F Assigned Patient Location: [place] Current Patient Location: [place] Accession/Order Number: [id number] Exam Date: 09/19/2024 09:16 Report Date: 09/19/2024 [...] Bach M.D. 09/19/2024 9:17 AM Dictation Location: [place] [address] Electronically authenticated by: [id number] Y Date: 09/19/2024 09:17 Dictated By: Iraida Bach M.D. Signed By: 09/19/24919 DD/ 6 TD/TT: Kick Press Setter: Packed Red Blood Cells Reviewed date:09/21/2024 01:12:51 PM Interpretation: Performing Lab: Notes/Report: Packed Red Blood Cells [id number] OP RC TRANSFUSED 09/20/24 1558 [id number] OP RC TRANSFUSED 09/20/24 1239 Type and Screen Reviewed date:09/21/2024 01:12:51 PM Interpretation: Performing Lab: Notes/Report: [facility] , Blood Type O Positive Antibody Screen NEGATIVE CBC AUTO DIFF Reviewed date:09/21/2024 01:12:51 PM Interpretation: Performing Lab: Notes/Report: [facility] , White Blood Count 24.0 [...] Performing Lab: see note ML - [facility] LB CBC AUTO DIFF Reviewed date:09/24/2024 07:13:51 PM Interpretation: Performing Lab: Notes/Report: [facility] , White Blood Count 19.9 [...] 8.6 9.5-13.5 fL Performing Lab: see note [facility] LB Manual Differential Reviewed date:10/08/2024 05:20:20 PM Interpretation: Performing Lab: Notes/Report: [facility] , Segmented Neutrophils % Manual [...] Anisocytosis 2+ Performing Lab: see note - [facility] LB DRUG SCREEN RAPID (URINE) Reviewed date:10/07/2024 08:47:32 PM Interpretation: Performing Lab: Notes/Report: CATH [facility] , Cannabinoid Screen Urine POSITIVE NEGATIVE Phencyclidine [...] ng/mL Performing Lab: see note ML - [facility] LB LACTATE or LACTIC ACID Reviewed date:10/07/2024 08:47:32 PM Interpretation: Performing Lab: Notes/Report: [facility] , Lactate/Lactic Acid 0.8 0.4-2.0 mmol/L Performing Lab: see note ML - [facility] LB LIVER PROFILE Reviewed date:10/07/2024 08:47:32 PM Interpretation: Performing Lab: Notes/Report: [facility] , Bilirubin Total 0.9 0.2-1.0 mg/dL Bilirubin Direct 0.5 0.0-0.2 mg/dL Aspartate Amino Transferase 38 15-37 U/L Alanine Aminotransferase 42 14-59 U/L Alkaline Phosphatase 696 46-116 U/L Total Protein 8.3 6.4-8.2 g/dL Albumin Level 1.5 3.4-5.0 g/dL Globulin 6.8 Albumin Globulin Ratio 0.2 Performing Lab: see note ML - [facility] LB PROF CHEM 8 (BAS METB) Reviewed date:10/07/2024 08:47:32 PM Interpretation: Performing Lab: Notes/Report: [facility] , Sodium 132 136-145 mmol/L Potassium [...] 10.0 8.5-10.1 mg/dL Performing Lab: see note [facility] UA RANDOM W or MICROSCOPIC Reviewed date:10/07/2024 08:47:32 PM Interpretation: Performing Lab: Notes/Report: [facility] , Color Urine DK. ORANGE YELLOW Clarity Urine CLEAR CLEAR Specific [place] Urine 1.020 1.005-1.025 pH Urine 6.0 5.0-9.0 [...] Culture Indicated NO Performing Lab: see note [facility] LB Blood Culture 1 Reviewed date:10/13/2024 07:21:11 PM Interpretation: Performing Lab: Notes/Report: RIGHT - [facility] , Blood Culture 1 See Below For Report Blood Culture 1 NG5D NO GROWTH AT 5 DAYS.^NO GROWTH AT 5 DAYS. Performing Lab: see note [facility] LB Blood Culture 2 Reviewed date:10/13/2024 07:21:11 PM Interpretation: Performing Lab: Notes/Report: [facility] - [facility] , Blood Culture 2 See Below For Report Blood Culture 2 NG5D NO GROWTH AT 5 DAYS.^NO GROWTH AT 5 DAYS. Performing Lab: see note [facility] LB Troponin I High Sensitivity Reviewed date:10/07/2024 08:47:32 PM Interpretation: Performing Lab: Notes/Report: [facility] , Troponin I High Sensitivity <4.0 4.0-51.3 pg/mL CUT-OFF POINTS HAVE BEEN ESTABLISHED BASED ON THE FOURTH UNIVERSAL DEFINITION OF MYOCARDIAL INFARCTION. THE UPPER REFERENCE LIMIT (URL) OF TROPONIN, DEFINED THE 99TH PERCENTILE OF cTnI DISTRIBUTION IN A REFERENCE POPULATION, HAS BEEN CONFIRMED THE DECISION THRESHOLD FOR CT DIAGNOSIS. 99TH PERCENTILE = 51.4 PG/ML NOTE: HIGH-SENSITIVITY TROPONIN ASSAY IS NOT INTENDED TO BE USED IN ISOLATION BUT SHOULD BE INTERPRETED IN CONJUNCTION WITH OTHER DIAGNOSTIC AND CLINICAL INFORMATION. Performing Lab: see note ML - [facility] LB CT angio chest Reviewed date:10/07/2024 09:58:47 PM Interpretation: Performing Lab: Notes/Report: Source Facility: [place] [address] CT Scan Report Signed Patient: RYLEE BURTON MR#: [id number] : 1975 Acct:[id number] Age/Sex: 49 / F ADM Date: 10/07/24 Loc: ER Attending Dr: Ordering Physician: Kobe Jonas M.D. Date of Service: 10/07/24 Procedure(s): CT angio chest Accession Number(s): [id number] cc: Meenakshi Swenson M.D. [place] [address] Patient Name: RYLEE BURTON MRN: [id number] date: 1975 Sex: F Assigned Patient Location: ER Current Patient Location: ER Accession/Order Number: [id number] Exam Date: 10/07/2024 20:53 Report Date: 10/07/2024 [...] Wheatley M.D. 10/07/2024 9:13 PM Dictation Location: [place] [address] Electronically authenticated by: [id number] Y Date: 10/07/2024 21:13 Dictated By: Seven Wheatley M.D. Signed By: 10/07/242115 DD/ 12 TD/TT: Kick Press Setter: PROF Pope(COMP METB) Reviewed date:10/27/2024 01:04:56 PM Interpretation: Performing Lab: Notes/Report: [facility] , Sodium 137 136-145 mmol/L [...] 0.2 Performing Lab: see note ML - [facility] LB PROF 14(COMP METB) Reviewed date:11/02/2024 07:54:11 PM Interpretation: Performing Lab: Notes/Report: [facility] , Sodium 137 136-145 mmol/L [...] Performing Lab: see note ML - [facility] LB CBC AUTO DIFF Reviewed date:11/05/2024 12:48:21 PM Interpretation: Performing Lab: Notes/Report: [facility] , White Blood Count 11.9 [...] 3/uL Performing Lab: see note ML - [facility] LB Packed Red Blood Cells Reviewed date:11/05/2024 06:22:35 PM Interpretation: Performing Lab: Notes/Report: Packed Red Blood Cells [id number] OP RC TRANSFUSED 11/05/24 1216 [id number] OP RC TRANSFUSED 11/05/24 0920 Type and Screen Reviewed date:11/05/2024 06:22:35 PM Interpretation: Performing Lab: Notes/Report: [facility] , Blood Type O Positive Antibody Screen NEGATIVE CBC AUTO DIFF Reviewed date:11/13/2024 04:23:43 PM Interpretation: Performing Lab: Notes/Report: [facility] , White Blood Count 16.1 [...] Performing Lab: see note ML - [facility] LB PROF 14(COMP METB) Reviewed date:11/13/2024 04:23:43 PM Interpretation: Performing Lab: Notes/Report: [facility] , Sodium 135 136-145 mmol/L Potassium 3.7 [...] 0.2 Performing Lab: see note ML - [facility] LB CBC AUTO DIFF Reviewed date:11/20/2024 05:06:15 PM Interpretation: Performing Lab: Notes/Report: [facility] , White Blood Count 22.7 [...] Performing Lab: see note ML - [facility] LB PROF 14(COMP METB) Reviewed date:11/20/2024 05:06:15 PM Interpretation: Performing Lab: Notes/Report: [facility] , Sodium 133 136-145 mmol/L [...] Performing Lab: see note ML - [facility] LB Manual Differential Reviewed date:11/20/2024 05:06:15 PM Interpretation: Performing Lab: Notes/Report: [facility] , Segmented Neutrophils % Manual [...] 3/uL Performing Lab: see note ML - [facility] LB Packed Red Blood Cells Reviewed date:11/24/2024 02:07:02 PM Interpretation: Performing Lab: Notes/Report: Packed Red Blood Cells [id number] ON RC TRANSFUSED 11/21/24 1228 [id number] ON RC TRANSFUSED 11/21/24 1037 Type and Screen Reviewed date:11/24/2024 02:07:02 PM Interpretation: Performing Lab: Notes/Report: [facility] , Blood Type O Positive Antibody Screen NEGATIVE BNP Reviewed date:11/27/2024 12:36:13 PM Interpretation: Performing Lab: Notes/Report: [facility] , NT Pro B Type Natriuretic Pept 7757.0 <=900.0 pg/mL RESULTS CALLED TO JOSE ANGEL LAZO RN @BY Lora Davila at 2338 Performing Lab: see note - [facility] LB CBC AUTO DIFF Reviewed date:11/26/2024 01:00:03 PM Interpretation: Performing Lab: Notes/Report: [facility] , White Blood Count 25.4 [...] fL Performing Lab: see note ML - [facility] LB LACTATE or LACTIC ACID Reviewed date:11/26/2024 01:00:03 PM Interpretation: Performing Lab: Notes/Report: [facility] , Lactate/Lactic Acid 0.6 0.4-2.0 mmol/L Performing Lab: see note ML - [facility] LB LDH Reviewed date:11/26/2024 01:00:03 PM Interpretation: Performing Lab: Notes/Report: [facility] , Lactate Dehydrogenase 176 81-234 U/L Performing Lab: see note - [facility] LB LIPASE Reviewed date:11/26/2024 01:00:03 PM Interpretation: Performing Lab: Notes/Report: [facility] , Lipase <10.0 16.0-77.0 U/L Performing Lab: see note ML - [facility] LB MAGNESIUM Reviewed date:11/26/2024 01:00:03 PM Interpretation: Performing Lab: Notes/Report: [facility] , Magnesium 1.6 1.8-2.4 mg/dL Performing Lab: see note ML - [facility] LB PROF 14(COMP METB) Reviewed date:11/26/2024 01:00:03 PM Interpretation: Performing Lab: Notes/Report: [facility] , Sodium 135 136-145 mmol/L [...] Ratio 0.2 Performing Lab: see note - [facility] UA RANDOM W or MICROSCOPIC Reviewed date:11/26/2024 01:00:03 PM Interpretation: Performing Lab: Notes/Report: [facility] , Color Urine YELLOW YELLOW Clarity Urine CLEAR CLEAR Specific [place] Urine <=1.005 1.005-1.025 pH Urine 6.0 5.0-9.0 [...] SEEN NONE SEEN #/LPF Urine Culture Indicated YES[place] Performing Lab: see note ML - [facility] LB URIC ACID SERUM Reviewed date:11/26/2024 01:00:04 PM Interpretation: Performing Lab: Notes/Report: [facility] , Uric Acid 1.9 2.6-6.0 mg/dL Performing Lab: see note - [facility] LB Blood Culture 1 Reviewed date:12/02/2024 07:45:52 PM Interpretation: Performing Lab: Notes/Report: PEDS BOTTLE [facility] , Blood Culture 1 See Below For Report Blood Culture 1 NG5D NO GROWTH AT 5 DAYS.^NO GROWTH AT 5 DAYS. Performing Lab: see note - [facility] LB Blood Culture 2 Reviewed date:12/02/2024 07:45:52 PM Interpretation: Performing Lab: Notes/Report: PEDS BOTTLE [facility] , Blood Culture 2 See Below For Report Blood Culture 2 NG5D NO GROWTH AT 5 DAYS.^NO GROWTH AT 5 DAYS. Performing Lab: see note - [facility] LB Manual Differential Reviewed date:11/26/2024 01:00:04 PM Interpretation: Performing Lab: Notes/Report: [facility] , Segmented Neutrophils % Manual [...] Anisocytosis 1+ Performing Lab: see note - [facility] LB Packed Red Blood Cells Reviewed date:12/01/2024 07:28:22 PM Interpretation: Performing Lab: Notes/Report: Packed Red Blood Cells [id number] OP RC TRANSFUSED 11/28/24 1010 Type and Screen Reviewed date:12/01/2024 07:28:22 PM Interpretation: Performing Lab: Notes/Report: [facility] , Blood Type O Positive Antibody Screen NEGATIVE Urine Culture - [facility] Reviewed date:11/28/2024 01:05:36 PM Interpretation: Performing Lab: Notes/Report: [facility] , Urine Culture [place] [facility] See Below For Report Urine Culture - [facility] Testing performed at [facility] [place] Isolated Urine Culture - [facility] [place] Count Organism: 1.1 Antibiotic Interpretation CYNTHIA Status Urine Culture - [facility] [address] [place] [address] Urine Culture - [facility] Testing performed at [facility] [place] Isolated Urine Culture - [facility] [place] Count Organism: 1.1 Antibiotic Interpretation CYNTHIA Status Urine Culture - [facility] See Below For Report Urine Culture - [facility] Testing performed at [facility] [place] Isolated Urine Culture - [facility] [place] Count Organism: 1.1 Antibiotic Interpretation CYNTHIA Status Urine Culture - [facility] See Below For Report Urine Culture - [facility] Testing performed at [facility] [place] Isolated Urine Culture - [facility] [place] Count Organism: 1.1 Antibiotic Interpretation CYNTHIA Status Urine Culture - [facility] >100,000 Urine Culture - [facility] Testing performed at [facility] [place] Isolated Urine Culture - [facility] [place] Count Organism: 1.1 Antibiotic Interpretation CYNTHIA Status Urine Culture - [facility] See Below For Report Urine Culture - [facility] Testing performed at [facility] [place] Isolated Urine Culture - [facility] [place] Count Organism: 1.1 Antibiotic Interpretation CYNTHIA Status Urine Culture - [facility] Amikacin S F Urine Culture - [facility] Testing performed at [facility] [place] Isolated Urine Culture - [facility] [place] Count Organism: 1.1 Antibiotic Interpretation CYNTHIA Status Urine Culture - [facility] Amoxicillin/Clavula trevor S F Urine Culture - [facility] Testing performed at [facility] [place] Isolated Urine Culture - [facility] [place] Count Organism: 1.1 Antibiotic Interpretation CYNTHIA Status Urine Culture - [facility] Aztreonam S F Urine Culture - [facility] Testing performed at [facility] [place] Isolated Urine Culture - [facility] [place] Count Organism: 1.1 Antibiotic Interpretation CYNTHIA Status Urine Culture - [facility] Ceftazidime S F Urine Culture - [facility] Testing performed at [facility] [place] Isolated Urine Culture - [facility] [place] Count Organism: 1.1 Antibiotic Interpretation CYNTHIA Status Urine Culture - [facility] Ceftazidime/Avibact am S F Urine Culture - [facility] Testing performed at [facility] [place] Isolated Urine Culture - [facility] [place] Count Organism: 1.1 Antibiotic Interpretation CYNTHIA Status Urine Culture - [facility] Ceftolozane/Tazobac smalls S F Urine Culture - [facility] Testing performed at [facility] [place] Isolated Urine Culture - [facility] [place] Count Organism: 1.1 Antibiotic Interpretation CYNTHIA Status Urine Culture - [facility] Ciprofloxacin S F Urine Culture - [facility] Testing performed at [facility] [place] Isolated Urine Culture - [facility] [place] Count Organism: 1.1 Antibiotic Interpretation CYNTHIA Status Urine Culture - [facility] Ertapenem S F Urine Culture - [facility] Testing performed at [facility] [place] Isolated Urine Culture - [facility] [place] Count Organism: 1.1 Antibiotic Interpretation CYNTHIA Status Urine Culture - [facility] Gentamicin S F Urine Culture - [facility] Testing performed at [facility] [place] Isolated Urine Culture - [facility] [place] Count Organism: 1.1 Antibiotic Interpretation CYNTHIA Status Urine Culture - [facility] Levofloxacin S F Urine Culture - [facility] Testing performed at [facility] [place] Isolated Urine Culture - [facility] [place] Count Organism: 1.1 Antibiotic Interpretation CYNTHIA Status Urine Culture - [facility] Meropenem S F Urine Culture - [facility] Testing performed at [facility] [place] Isolated Urine Culture - [facility] [place] Count Organism: 1.1 Antibiotic Interpretation CYNTHIA Status Urine Culture - [facility] Meropenem/Vaborbact am S F Urine Culture - [facility] Testing performed at [facility] [place] Isolated Urine Culture - [facility] [place] Count Organism: 1.1 Antibiotic Interpretation CYNTHIA Status Urine Culture - [facility] Nitrofurantoin I F Urine Culture - [facility] Testing performed at [facility] [place] Isolated Urine Culture - [facility] [place] Count Organism: 1.1 Antibiotic Interpretation CYNTHIA Status Urine Culture - [facility] Tetracycline S F Urine Culture - [facility] Testing performed at [facility] [place] Isolated Urine Culture - [facility] [place] Count Organism: 1.1 Antibiotic Interpretation CYNTHIA Status Urine Culture - [facility] Tigecycline S F Urine Culture - [facility] Testing performed at [facility] [place] Isolated Urine Culture - [facility] [place] Count Organism: 1.1 Antibiotic Interpretation CYNTHIA Status Urine Culture - [facility] Tobramycin S F Urine Culture - [facility] Testing performed at [facility] [place] Isolated Urine Culture - [facility] [place] Count Organism: 1.1 Antibiotic Interpretation CYNTHIA Status Urine Culture - [facility] Ampicillin/Sulbacta m S F Urine Culture - [facility] Testing performed at [facility] [place] Isolated Urine Culture - [facility] [place] Count Organism: 1.1 Antibiotic Interpretation CYNTHIA Status Urine Culture - [facility] Cefazolin S F Urine Culture - [facility] Testing performed at [facility] [place] Isolated Urine Culture - [facility] [place] Count Organism: 1.1 Antibiotic Interpretation CYNTHIA Status Urine Culture - [facility] Cefepime S F Urine Culture - [facility] Testing performed at [facility] [place] Isolated Urine Culture - [facility] [place] Count Organism: 1.1 Antibiotic Interpretation CYNTHIA Status Urine Culture - [facility] Ceftriaxone S F Urine Culture - [facility] Testing performed at [facility] [place] Isolated Urine Culture - [facility] [place] Count Organism: 1.1 Antibiotic Interpretation CYNTHIA Status Urine Culture - [facility] Cefuroxime S F Urine Culture - [facility] Testing performed at [facility] [place] Isolated Urine Culture - [facility] [place] Count Organism: 1.1 Antibiotic Interpretation CYNTHIA Status Urine Culture - [facility] Piperacillin/Tazoba ctam S F Urine Culture - [facility] Testing performed at [facility] [place] Isolated Urine Culture - [facility] [place] Count Organism: 1.1 Antibiotic Interpretation CYNTHIA Status Urine Culture - [facility] Trimethoprim/Sulfa S F Urine Culture - [facility] Testing performed at [facility] [place] Isolated Urine Culture - [facility] [place] Count Organism: 1.1 Antibiotic Interpretation CYNTHIA Status Performing Lab: see note ML - [facility] LB SEE REPORT - Security Assessor Id information not found for OBX-specific blueprint reproducer legend CT CHEST W CON Reviewed date:11/26/2024 01:00:04 PM Interpretation: Performing Lab: Notes/Report: Source Facility: [place] [address] [place] [address] CT Scan Report Signed Patient: RYLEE BURTON MR#: [id number] : 1975 Acct:[id number] Age/Sex: 49 / F ADM Date: 11/26/24 Loc: ER Attending Dr: Ordering Physician: Alejandro Horowitz Date of Service: 11/26/24 Procedure(s): CT chest w con Accession Number(s): [id number] cc: Hoy,Meenakshi M.D. [address] [address] Patient Name: RYLEE BURTON MRN: [facility]:[id number] date: 1975 Sex: F Assigned Patient Location: ED.MAIN Current Patient Location: ED.MAIN Accession/Order Number: [id number] Exam Date: 11/26/2024 09:35 Report Date: 11/26/2024 [...] Bach M.D. 11/26/2024 10:36 AM Dictation Location: [place] [address] Electronically authenticated by: [id number] Y Date: 11/26/2024 10:36 Dictated By: Iraida Bach M.D. Signed By: 11/26/24 1039 DD/ 1036 TD/TT: Kick Press Setter: CT abdomen pelvis wo con Reviewed date:11/26/2024 01:00:04 PM Interpretation: Performing Lab: Notes/Report: Source Facility: [facility] [place] [address] CT Scan Report Signed Patient: RYLEE BURTON MR#: [id number] : 1975 Acct:[id number] Age/Sex: 49 / F ADM Date: 11/26/24 Loc: ER Attending Dr: Ordering Physician: Alejandro Horowitz Date of Service: 11/26/24 Procedure(s): CT abdomen pelvis wo/w con Accession Number(s): [id number] cc: Meenakshi Swenson M.D. [place] [address] Patient Name: RYLEE BURTON MRN: [id number] date: 1975 Sex: F Assigned Patient Location: ED.MAIN Current Patient Location: ED.MAIN Accession/Order Number: [id number] Exam Date: 11/26/2024 09:35 Report Date: 11/26/2024 [...] Bach M.D. 11/26/2024 10:36 AM Dictation Location: [place] [address] Electronically authenticated by: [id number] Y Date: 11/26/2024 10:36 Dictated By: Iraida Bach M.D. Signed By: 11/26/24 1039 DD/ 1036 TD/TT: Kick Press Setter: CBC AUTO DIFF Reviewed date:11/27/2024 12:36:13 PM Interpretation: Performing Lab: Notes/Report: [facility] , White Blood Count 20.2 [...] Performing Lab: see note ML - [facility] [place] LB MAGNESIUM Reviewed date:11/27/2024 12:36:13 PM Interpretation: Performing Lab: Notes/Report: [facility] , Magnesium 1.7 1.8-2.4 mg/dL Performing Lab: see note ML - [facility] [place] LB PHOSPHORUS Reviewed date:11/27/2024 12:36:13 PM Interpretation: Performing Lab: Notes/Report: Comment Add to already drawn blood sample this AM [facility] , Phosphorus 6.4 2.6-4.7 mg/dL RESULTS CALLED TO JOSE ANGEL LAZO RN Performing Lab: see note ML - [facility] [place] LB PROF 14(COMP METB) Reviewed date:11/27/2024 12:36:13 PM Interpretation: Performing Lab: Notes/Report: [facility] , Sodium 142 136-145 mmol/L [...] 0.1 Performing Lab: see note ML - [facility] LB VITAMIN D 25 [place] Reviewed date:11/27/2024 12:36:13 PM Interpretation: Performing Lab: Notes/Report: [facility] , Vitamin D 48.0 <20 ng/mL Vit D deficient 20-<30 ng/mL Vit D insufficient 30-100 ng/mL Vit D sufficient >100 ng/mL Potential Toxicity Performing Lab: see note - [facility] LB Manual Differential Reviewed date:11/27/2024 12:36:13 PM Interpretation: Performing Lab: Notes/Report: [facility] , Segmented Neutrophils % Manual [...] Stomatocytes 1+ Performing Lab: see note - [facility] LB PTH, Intact Reviewed date:11/28/2024 01:05:36 PM Interpretation: Performing Lab: Notes/Report: [facility] , PTH, Intact 11 15-65 pg/mL Performed at: [address] [id number] Insurance Claim Auditor: Abel Finnegan PhD, Phone: [phone] Performing Lab: see note [facility] PTHrP (PTH-Related Peptide) Reviewed date:12/02/2024 02:16:34 PM Interpretation: Performing Lab: Notes/Report: [facility] , PTHrP (PTH-Related Peptide) <2.0 . pmol/L This test was developed and its performance characteristics determined by [facility]. It has not been cleared or approved [...] discordant, please contact the laboratory. Performed at: [facility] [address] [place] [id number] Insurance Claim Auditor: Andres Live MD, Phone: [phone] Performing Lab: see note [facility] LB ECG 12 lead Reviewed date:11/27/2024 04:38:38 PM Interpretation: Performing Lab: Notes/Report: Source Facility: [facility]-[address] [place] [address] [place] [address] Electrocardiograph Report Signed Patient: RYLEE BURTON MR#: [id number] : 1975 Acct:[id number] Age/Sex: 49 / F ADM Date: 11/26/24 Loc: [place] 219-[address]: BENJY GRANADOS D.O. 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 Signed By: 11/27/24 1605 DD/ 1149 TD/TT: Kick Press Setter: MAGNESIUM Reviewed date:11/28/2024 01:05:35 PM Interpretation: Performing Lab: Notes/Report: [facility] , Magnesium 1.8 1.8-2.4 mg/dL Performing Lab: see note ML - [facility] LB PHOSPHORUS Reviewed date:11/28/2024 01:05:35 PM Interpretation: Performing Lab: Notes/Report: [facility] , Phosphorus 4.3 2.6-4.7 mg/dL Performing Lab: see note ML - [facility] LB PROF 14(COMP METB) Reviewed date:11/28/2024 01:05:35 PM Interpretation: Performing Lab: Notes/Report: [facility] , Sodium 135 136-145 mmol/L [...] 0.1 Performing Lab: see note ML - [facility] LB CBC no Diff (Hemogram) Reviewed date:11/28/2024 01:05:36 PM Interpretation: Performing Lab: Notes/Report: [facility] , White Blood Count 20.6 4.0-11.0 10 [...] fL Performing Lab: see note ML - [facility] LB Manual Differential Reviewed date:12/04/2024 07:07:25 PM Interpretation: Performing Lab: Notes/Report: [facility] , Segmented Neutrophils % Manual [...] Performing Lab: see note ML - [facility] LB BNP Reviewed date:12/07/2024 12:58:32 PM Interpretation: Performing Lab: Notes/Report: [facility] , NT Pro B Type Natriuretic Pept 2763.0 <=900.0 pg/mL RESULTS CALLED TO ROXANNA MANCINI RN Performing Lab: see note - [facility] LB CBC AUTO DIFF Reviewed date:12/07/2024 12:58:32 PM Interpretation: Performing Lab: Notes/Report: [facility] , White Blood Count 26.8 4.0-11.0 10 3/uL Red Blood Count 2.35 4.20-5.40 10 6/uL Hemoglobin 6.8 12.0-16.0 g/dL RESULTS CALLED TO EFRAIN Howe RN @BY Gurmeet Rocha MLT at 0153 Hematocrit 22.3 36.0-48.0 % RESULTS CALLED TO EFRAIN Howe RN @BY Gurmeet Rocha MLT at 0153 Mean Corpuscular Volume 94.9 81.0-99.0 fL Mean Corpuscular Hemoglobin 28.9 26.7-34.0 pg Mean Corpuscular HGB Conc 30.5 29.9-35.2 g/dL Red Cell Distribution Width 17.7 11.0-15.0 % Platelet Count 1042 150-450 10 3/uL RESULTS CALLED TO EFRAIN Howe RN @BY Gurmeet Rocha MLT at 0153 Mean Platelet Volume 8.7 9.5-13.5 fL Performing Lab: see note - [facility] LB D-DIMER Reviewed date:12/07/2024 12:58:32 PM Interpretation: Performing Lab: Notes/Report: [facility] , D Dimer 1.12 <=0.59 [...] hospitalization. Performing Lab: see note ML - [facility] LB LACTATE or LACTIC ACID Reviewed date:12/07/2024 12:58:32 PM Interpretation: Performing Lab: Notes/Report: [facility] , Lactate/Lactic Acid 0.3 0.4-2.0 mmol/L Performing Lab: see note ML - [facility] LB PROF CHEM 8 (BAS METB) Reviewed date:12/07/2024 12:58:32 PM Interpretation: Performing Lab: Notes/Report: [facility] , Sodium 136 136-145 mmol/L [...] mg/dL Performing Lab: see note ML - [facility] LB Manual Differential Reviewed date:12/07/2024 12:58:32 PM Interpretation: Performing Lab: Notes/Report: [facility] , Segmented Neutrophils % Manual [...] 3/uL Performing Lab: see note ML - [facility] Troponin I High Sensitivity Reviewed date:12/07/2024 12:58:32 PM Interpretation: Performing Lab: Notes/Report: [facility] , Troponin I High Sensitivity <4.0 4.0-51.3 pg/mL CUT-OFF POINTS HAVE BEEN ESTABLISHED BASED ON THE FOURTH UNIVERSAL DEFINITION OF MYOCARDIAL INFARCTION. THE UPPER REFERENCE LIMIT (URL) OF TROPONIN, DEFINED THE 99TH PERCENTILE OF cTnI DISTRIBUTION IN A REFERENCE POPULATION, HAS BEEN CONFIRMED THE DECISION THRESHOLD FOR CT DIAGNOSIS. 99TH PERCENTILE = 51.4 PG/ML NOTE: HIGH-SENSITIVITY TROPONIN ASSAY IS NOT INTENDED TO BE USED IN ISOLATION BUT SHOULD BE INTERPRETED IN CONJUNCTION WITH OTHER DIAGNOSTIC AND CLINICAL INFORMATION. Performing Lab: see note - [facility] UA Micro, reflex to culture Reviewed date:12/07/2024 12:58:32 PM Interpretation: Performing Lab: Notes/Report: [facility] , Color Urine YELLOW YELLOW Clarity Urine CLEAR CLEAR Specific [place] Urine 1.025 1.005-1.025 pH Urine 6.0 5.0-9.0 [...] Performing Lab: see note ML - [facility] LB XR chest 1V Reviewed date:12/07/2024 12:58:32 PM Interpretation: Performing Lab: Notes/Report: Source Facility: [facility] [place] [address] [place] [address] XRay Report Signed Patient: RYLEE BURTON MR#: [id number] : 1975 Acct:[id number] Age/Sex: 49 / F ADM Date: 12/05/24 Loc: ER Attending Dr: Ordering Physician: Ellis Payne Date of Service: 12/06/24 Procedure(s): XR chest 1V Accession Number(s): [id number] cc: Ellis Payne; Meenakshi Swenson M.D. [place] [address] Patient Name: RYLEE BURTON MRN: [id number] date: 1975 Sex: F Assigned Patient Location: ER Current Patient Location: ER Accession/Order Number: [id number] Exam Date: 12/06/2024 06:20 Report Date: 12/06/2024 [...] Matthews M.D. 12/06/2024 9:11 AM Dictation Location: [place] [address] Electronically authenticated by: [id number] Y Date: 12/06/2024 09:11 Dictated By: Abran Matthews D.O. Signed By: 12/06/24913 DD/ 0 TD/TT: Kick Press Setter: Troponin I High Sensitivity Reviewed date:12/07/2024 12:58:32 PM Interpretation: Performing Lab: Notes/Report: [facility] , Troponin I High Sensitivity <4.0 4.0-51.3 pg/mL CUT-OFF POINTS HAVE BEEN ESTABLISHED BASED ON THE FOURTH UNIVERSAL DEFINITION OF MYOCARDIAL INFARCTION. THE UPPER REFERENCE LIMIT (URL) OF TROPONIN, DEFINED THE 99TH PERCENTILE OF cTnI DISTRIBUTION IN A REFERENCE POPULATION, HAS BEEN CONFIRMED THE DECISION THRESHOLD FOR CT DIAGNOSIS. 99TH PERCENTILE = 51.4 PG/ML NOTE: HIGH-SENSITIVITY TROPONIN ASSAY IS NOT INTENDED TO BE USED IN ISOLATION BUT SHOULD BE INTERPRETED IN CONJUNCTION WITH OTHER DIAGNOSTIC AND CLINICAL INFORMATION. Performing Lab: see note ML - [facility] LB CBC AUTO DIFF Reviewed date:12/07/2024 12:58:32 PM Interpretation: Performing Lab: Notes/Report: [facility] , White Blood Count 21.5 [...] 3/uL Performing Lab: see note ML - [facility] LB LACTATE or LACTIC ACID Reviewed date:12/07/2024 12:58:32 PM Interpretation: Performing Lab: Notes/Report: [facility] , Lactate/Lactic Acid 0.3 0.4-2.0 mmol/L Performing Lab: see note ML - [facility] LB PROF 14(COMP METB) Reviewed date:12/08/2024 01:17:47 PM Interpretation: Performing Lab: Notes/Report: [facility] , Sodium 137 136-145 mmol/L [...] Performing Lab: see note ML - [facility] LB Manual Differential Reviewed date:12/08/2024 01:17:47 PM Interpretation: Performing Lab: Notes/Report: [facility] , Segmented Neutrophils % Manual [...] Performing Lab: see note ML - [facility] LB ECG 12 lead Reviewed date:12/08/2024 06:00:03 PM Interpretation: Performing Lab: Notes/Report: Source Facility: [facility] [place] [address] [place] [address] Electrocardiograph Report Signed Patient: RYLEE BURTON MR#: [id number] : 1975 Acct:[id number] Age/Sex: 49 / F ADM Date: 12/05/24 Loc: ER Attending Dr: Ordering Physician: Maribeth Jenkins Date of Service: 12/08/24 Procedure(s): ECG 12 lead Accession Number(s): [id number] cc: [facility] Test Date: 2024-12-08 Pat Name: RYLEE BURTON Department: Room: - 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 Signed By: 12/08/24 1650 DD/ 0842 TD/TT: Kick Press Setter: CBC AUTO DIFF Reviewed date:12/15/2024 08:56:18 PM Interpretation: Performing Lab: Notes/Report: [facility] , White Blood Count 15.5 4.0-11.0 10 [...] Performing Lab: see note ML - [facility] LB CBC AUTO DIFF Reviewed date:12/24/2024 05:54:35 PM Interpretation: Performing Lab: Notes/Report: [facility] , White Blood Count 14.9 4.0-11.0 [...] 3/uL Performing Lab: see note ML - [facility] LB Aerobic Culture Reviewed date:01/03/2025 12:40:38 PM Interpretation: Performing Lab: Notes/Report: [facility] , Aerobic Culture See Below For Report Aerobic Culture O:ENTFAC Isolated Organism: 1.1 Antibiotic Interpretation CYNTHIA Status Aerobic Culture No growth after 18-2 4 hours. Aerobic Culture O:ENTFAC Isolated Organism: 1.1 Antibiotic Interpretation CYNTHIA Status Aerobic Culture Aerobic Culture O:ENTFAC Isolated Organism: 1.1 Antibiotic Interpretation CYNTHIA Status Aerobic Culture Growth observed. Further testing to rule out possible pathogen(s) Aerobic Culture O:ENTFAC Isolated Organism: 1.1 Antibiotic Interpretation CYNTHIA Status Aerobic Culture is in progress. Aerobic Culture O:ENTFAC Isolated Organism: 1.1 Antibiotic Interpretation CYNTHIA Status Aerobic Culture Organism: Enterococc us faecalis : Aerobic Culture O:ENTFAC Isolated Organism: 1.1 Antibiotic Interpretation CYNTHIA Status Aerobic Culture *ABNORMAL* Aerobic Culture O:ENTFAC Isolated Organism: 1.1 Antibiotic Interpretation CYNTHIA Status Aerobic Culture Enterococci suscepti ble to penicillin are predictably Aerobic Culture O:ENTFAC Isolated Organism: 1.1 Antibiotic Interpretation CYNTHIA Status Aerobic Culture susceptible to ampicillin, amoxicillin, ampicillin- Aerobic Culture O:ENTFAC Isolated Organism: 1.1 Antibiotic Interpretation CYNTHIA Status Aerobic Culture sulbactam, amoxicillin-clavulanate , and piperacillin- Aerobic Culture O:ENTFAC Isolated Organism: 1.1 Antibiotic Interpretation CYNTHIA Status Aerobic Culture tazobactam for [id number] producing Aerobic Culture O:ENTFAC Isolated Organism: 1.1 Antibiotic Interpretation CYNTHIA Status Aerobic Culture enterococci. (CLSI 2018) Aerobic Culture O:ENTFAC Isolated Organism: 1.1 Antibiotic Interpretation CYNTHIA Status Aerobic Culture For Enterococcus species, aminoglycosides (except for Aerobic Culture O:ENTFAC Isolated Organism: 1.1 Antibiotic Interpretation CYNTHIA Status Aerobic Culture high-level resistanc e screening), cephalosporins, Aerobic Culture O:ENTFAC Isolated Organism: 1.1 Antibiotic Interpretation CYNTHIA Status Aerobic Culture clindamycin, and trimethoprim-sulfametho xazole are not Aerobic Culture O:ENTFAC Isolated Organism: 1.1 Antibiotic Interpretation CYNTHIA Status Aerobic Culture effective clinically . (CLSI, [id number], 2016) Aerobic Culture O:ENTFAC Isolated Organism: 1.1 Antibiotic Interpretation CYNTHIA Status Aerobic Culture Recovered from broth only. Aerobic Culture O:ENTFAC Isolated Organism: 1.1 Antibiotic Interpretation CYNTHIA Status Aerobic Culture Enterococcus faecalis Aerobic Culture O:ENTFAC Isolated Organism: 1.1 Antibiotic Interpretation CYNTHIA Status Aerobic Culture See Below For Report Aerobic Culture O:ENTFAC Isolated Organism: 1.1 Antibiotic Interpretation CYNTHIA Status Aerobic Culture Performed at: [facility] Aerobic Culture O:ENTFAC Isolated Organism: 1.1 Antibiotic Interpretation CYNTHIA Status Aerobic Culture [address] [place], [place] [id number] Aerobic Culture O:ENTFAC Isolated Organism: 1.1 Antibiotic Interpretation CYNTHIA Status Aerobic Culture Insurance Claim Auditor: Rupert Finnegan PhD, Phone: [phone] Aerobic Culture O:ENTFAC Isolated Organism: 1.1 Antibiotic Interpretation CYNTHIA Status Aerobic Culture See Below For Report Aerobic Culture O:ENTFAC Isolated Organism: 1.1 Antibiotic Interpretation CYNTHIA Status Aerobic Culture Linezolid S F Aerobic Culture O:ENTFAC Isolated Organism: 1.1 Antibiotic Interpretation CYNTHIA Status Aerobic Culture Penicillin S F Aerobic Culture O:ENTFAC Isolated Organism: 1.1 Antibiotic Interpretation CYNTHIA Status Aerobic Culture Vancomycin S F Aerobic Culture O:ENTFAC Isolated Organism: 1.1 Antibiotic Interpretation CYNTHIA Status Performing Lab: see note - [facility] LB SEE REPORT - Security Assessor Id information not found for OBX-specific blueprint reproducer legend Anaerobic Culture Reviewed date:01/06/2025 02:15:37 PM Interpretation: Performing Lab: Notes/Report: [facility] , Anaerobic Culture See Below For Report Anaerobic Culture O:PREBIV Isolated Anaerobic Culture Holding for possible anaerobes. Anaerobic Culture O:PREBIV Isolated Anaerobic Culture Organism: Prevotella bivia : Anaerobic Culture O:PREBIV Isolated Anaerobic Culture *ABNORMAL* Anaerobic Culture O:PREBIV Isolated Anaerobic Culture Light growth Anaerobic Culture O:PREBIV Isolated Anaerobic Culture Studies at [facility] have confirmed the Anaerobic Culture O:PREBIV Isolated Anaerobic Culture observations of ot rs who have demonstrated that Anaerobic Culture O:PREBIV Isolated Anaerobic Culture Prevotella, Porphyromonas and Bacteroides species Anaerobic Culture O:PREBIV Isolated Anaerobic Culture other than Bacteroid es fragilis group are routinely Anaerobic Culture O:PREBIV Isolated Anaerobic Culture susceptible to Cefoxitin, Chloramphenicol, and Anaerobic Culture O:PREBIV Isolated Anaerobic Culture Metronidazole and ar e usually resistant to Penicillin. Anaerobic Culture O:PREBIV Isolated Anaerobic Culture Prevotella bivia Anaerobic Culture O:PREBIV Isolated Anaerobic Culture See Below For Report Anaerobic Culture O:PREBIV Isolated Performing Lab: see note [facility] LB Aerobic Culture Reviewed date:01/06/2025 02:15:37 PM Interpretation: Performing Lab: Notes/Report: [facility] , Aerobic Culture See Below For Report Aerobic Culture O:ENTFAC Isolated Organism: 2.1 Antibiotic Interpretation CYNTHIA Status Linezolid Linezolid S F Penicillin Penicillin S F Vancomycin Vancomycin S F Aerobic Culture No growth after 18-2 4 hours. Aerobic Culture O:ENTFAC Isolated Organism: 2.1 Antibiotic Interpretation CYNTHIA Status Linezolid Linezolid S F Penicillin Penicillin S F Vancomycin Vancomycin S F Aerobic Culture Aerobic Culture O:ENTFAC Isolated Organism: 2.1 Antibiotic Interpretation CYNTHIA Status Linezolid Linezolid S F Penicillin Penicillin S F Vancomycin Vancomycin S F Aerobic Culture Growth observed. Further testing to rule out possible pathogen(s) Aerobic Culture O:ENTFAC Isolated Organism: 2.1 Antibiotic Interpretation CYNTHIA Status Linezolid Linezolid S F Penicillin Penicillin S F Vancomycin Vancomycin S F Aerobic Culture is in progress. Aerobic Culture O:ENTFAC Isolated Organism: 2.1 Antibiotic Interpretation CYNTHIA Status Linezolid Linezolid S F Penicillin Penicillin S F Vancomycin Vancomycin S F Aerobic Culture Organism: Enterococc us faecalis : Aerobic Culture O:ENTFAC Isolated Organism: 2.1 Antibiotic Interpretation CYNTHIA Status Linezolid Linezolid S F Penicillin Penicillin S F Vancomycin Vancomycin S F Aerobic Culture *ABNORMAL* Aerobic Culture O:ENTFAC Isolated Organism: 2.1 Antibiotic Interpretation CYNTHIA Status Linezolid Linezolid S F Penicillin Penicillin S F Vancomycin Vancomycin S F Aerobic Culture Enterococci suscepti ble to penicillin are predictably Aerobic Culture O:ENTFAC Isolated Organism: 2.1 Antibiotic Interpretation CYNTHIA Status Linezolid Linezolid S F Penicillin Penicillin S F Vancomycin Vancomycin S F Aerobic Culture susceptible to ampicillin, amoxicillin, ampicillin- Aerobic Culture O:ENTFAC Isolated Organism: 2.1 Antibiotic Interpretation CYNTHIA Status Linezolid Linezolid S F Penicillin Penicillin S F Vancomycin Vancomycin S F Aerobic Culture sulbactam, amoxicillin-clavulanate , and piperacillin- Aerobic Culture O:ENTFAC Isolated Organism: 2.1 Antibiotic Interpretation CYNTHIA Status Linezolid Linezolid S F Penicillin Penicillin S F Vancomycin Vancomycin S F Aerobic Culture tazobactam for [id number] producing Aerobic Culture O:ENTFAC Isolated Organism: 2.1 Antibiotic Interpretation CYNTHIA Status Linezolid Linezolid S F Penicillin Penicillin S F Vancomycin Vancomycin S F Aerobic Culture enterococci. (CLSI 2018) Aerobic Culture O:ENTFAC Isolated Organism: 2.1 Antibiotic Interpretation CYNTHIA Status Linezolid Linezolid S F Penicillin Penicillin S F Vancomycin Vancomycin S F Aerobic Culture For Enterococcus species, aminoglycosides (except for Aerobic Culture O:ENTFAC Isolated Organism: 2.1 Antibiotic Interpretation CYNTHIA Status Linezolid Linezolid S F Penicillin Penicillin S F Vancomycin Vancomycin S F Aerobic Culture high-level resistanc e screening), cephalosporins, Aerobic Culture O:ENTFAC Isolated Organism: 2.1 Antibiotic Interpretation CYNTHIA Status Linezolid Linezolid S F Penicillin Penicillin S F Vancomycin Vancomycin S F Aerobic Culture clindamycin, and trimethoprim-sulfametho xazole are not Aerobic Culture O:ENTFAC Isolated Organism: 2.1 Antibiotic Interpretation CYNTHIA Status Linezolid Linezolid S F Penicillin Penicillin S F Vancomycin Vancomycin S F Aerobic Culture effective clinically . (CLSI, [id number], 2016) Aerobic Culture O:ENTFAC Isolated Organism: 2.1 Antibiotic Interpretation CYNTHIA Status Linezolid Linezolid S F Penicillin Penicillin S F Vancomycin Vancomycin S F Aerobic Culture Recovered from broth only. Aerobic Culture O:ENTFAC Isolated Organism: 2.1 Antibiotic Interpretation CYNTHIA Status Linezolid Linezolid S F Penicillin Penicillin S F Vancomycin Vancomycin S F Aerobic Culture Enterococcus faecalis Aerobic Culture O:ENTFAC Isolated Organism: 2.1 Antibiotic Interpretation CYNTHIA Status Linezolid Linezolid S F Penicillin Penicillin S F Vancomycin Vancomycin S F Aerobic Culture See Below For Report Aerobic Culture O:ENTFAC Isolated Organism: 2.1 Antibiotic Interpretation CYNTHIA Status Linezolid Linezolid S F Penicillin Penicillin S F Vancomycin Vancomycin S F Aerobic Culture Performed at: [facility] Aerobic Culture O:ENTFAC Isolated Organism: 2.1 Antibiotic Interpretation CYNTHIA Status Linezolid Linezolid S F Penicillin Penicillin S F Vancomycin Vancomycin S F Aerobic Culture [address], [place] [id number] Aerobic Culture O:ENTFAC Isolated Organism: 2.1 Antibiotic Interpretation CYNTHIA Status Linezolid Linezolid S F Penicillin Penicillin S F Vancomycin Vancomycin S F Aerobic Culture Insurance Claim Auditor: Rupert Finnegan PhD, Phone: [phone] Aerobic Culture O:ENTFAC Isolated Organism: 2.1 Antibiotic Interpretation CYNTHIA Status Linezolid Linezolid S F Penicillin Penicillin S F Vancomycin Vancomycin S F Aerobic Culture See Below For Report Aerobic Culture O:ENTFAC Isolated Organism: 2.1 Antibiotic Interpretation CYNTHIA Status Linezolid Linezolid S F Penicillin Penicillin S F Vancomycin Vancomycin S F Aerobic Culture See Below For Report Aerobic Culture O:ENTFAC Isolated Organism: 2.1 Antibiotic Interpretation CYNTHIA Status Linezolid Linezolid S F Penicillin Penicillin S F Vancomycin Vancomycin S F Aerobic Culture See Below For Report Aerobic Culture O:ENTFAC Isolated Organism: 2.1 Antibiotic Interpretation CYNTHIA Status Linezolid Linezolid S F Penicillin Penicillin S F Vancomycin Vancomycin S F Aerobic Culture See Below For Report Aerobic Culture O:ENTFAC Isolated Organism: 2.1 Antibiotic Interpretation CYNTHIA Status Linezolid Linezolid S F Penicillin Penicillin S F Vancomycin Vancomycin S F Performing Lab: see note LC - [facility] LB SEE REPORT - Security Assessor Id information not found for OBX-specific blueprint reproducer legend PROF 14(COMP METB) Reviewed date:12/24/2024 05:54:35 PM Interpretation: Performing Lab: Notes/Report: [facility] , Sodium 133 136-145 mmol/L [...] Performing Lab: see note ML - [facility] LB ECG 12 lead Reviewed date:12/16/2024 03:12:38 PM Interpretation: Performing Lab: Notes/Report: Source Facility: [facility]-[address] [place] [address] [place] [address] Electrocardiograph Report Draft Patient: RYLEE BURTON MR#: [id number] : 1975 Acct:[id number] Age/Sex: 49 / F ADM Date: 12/16/24 Loc: ER Attending Dr: Ordering Physician: Maribeth Jenkins Date of Service: 12/16/24 Procedure(s): ECG 12 lead Accession Number(s): [id number] cc: [facility] Test Date: 2024-12-16 Pat Name: RYLEE BURTON Department: Room: - 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 Test Ordered: 990170 von Willebrand Profile Factor VIII Activity 192 [...] For questions regarding panel interpretation, please contact Garden Mate at . --------- DISCLAIMER These assessments and [...] (1) The National Heart, Lung and Blood [place]. The Diagnosis, Evaluation and Management of von Willebrand Disease. [place], [place]: National Institutes of Health Publication 08-5832. 2006. Available at http://www.nhlbi.nih.g ov/guidelines/vwd/. (2) Keisha CESPEDES et al. Am J Hematol. 2009; 84(6):366-370. (3) Ariel M et al. Haemophilia. 2004;10(3):199-217. (4) Ming GARCIA et al. Haemophilia. 2004; 10(3):218-231. Performed at: [address] [id number] Insurance Claim Auditor: Opal Gibbs MD, Phone: [phone] Performed at: [facility] / Digital [address] [place] [id number] Insurance Claim Auditor: Aster Ozuna MD, Phone: [phone] Performed at: - [facility] [address] [id number] Insurance Claim Auditor: Abel Finnegan PhD, Phone: [phone] Performing Lab: see note - [facility] LB CBC AUTO DIFF Reviewed date:12/08/2024 01:17:47 PM Interpretation: Performing Lab: Notes/Report: [facility] , White Blood Count 19.9 [...] 9.5-13.5 fL Performing Lab: see note - [facility] LB CA echo doppler complete Reviewed date:11/27/2024 12:36:13 PM Interpretation: Performing Lab: Notes/Report: Source Facility: [place] [address] Cardiology Report Signed Patient: RYLEE BURTON MR#: [id number] : 1975 Acct:[id number] Age/Sex: 49 / F ADM Date: 11/26/24 Loc: [place] 219-[address]: BENJY GRANADOS D.O. Ordering Physician: Cynthia Hernandez M.D. Date of Service: 11/27/24 Procedure(s): CA echo doppler complete Accession Number(s): [id number] cc: Meenakshi Swenson M.D.; Cynthia Hernandez M.D. Patient Name: RYLEE BURTON MR#: [id number] : 1975 Exam Date: 11/27/2024 Ordering Doctor: [...] Signed By: 11/27/24 1037 DD/ 1036 TD/TT: Kick Press Setter: XR chest 1V Reviewed date:11/27/2024 12:36:13 PM Interpretation: Performing Lab: Notes/Report: Source Facility: [place] [address] XRay Report Signed Patient: RYLEE BURTON MR#: [id number] : 1975 Acct:[id number] Age/Sex: 49 / F ADM Date: 11/26/24 Loc: [place] 219-[address]: BENJY GRANADOS D.O. Ordering Physician: Cynthia Hernandez M.D. Date of Service: 11/26/24 Procedure(s): XR chest 1V Accession Number(s): [id number] cc: Meenakshi Swenson M.D.; Cynthia Hernandez M.D. The [place] [id number] Patient Name: RYLEE BURTON MRN: [id number] date: 1975 Sex: F Assigned Patient Location: [place] Current Patient Location: [place] Accession/Order Number: [id number] Exam Date: 11/26/2024 22:28 Report Date: 11/26/2024 [...] Matthews M.D. 11/26/2024 10:54 PM Dictation Location: [place] [address] Electronically authenticated by: [id number] Y Date: 11/26/2024 22:54 Dictated By: Abran Matthews D.O. Signed By: 11/26/242256 DD/ 53 TD/TT: Kick Press Setter: CBC AUTO DIFF Reviewed date:11/02/2024 07:54:11 PM Interpretation: Performing Lab: Notes/Report: [facility] , White Blood Count 15.5 [...] 10 3/uL Performing Lab: see note - [facility] LB Manual Differential Reviewed date:10/27/2024 01:04:56 PM Interpretation: Performing Lab: Notes/Report: [facility] , Segmented Neutrophils % Manual [...] 0 3/uL Performing Lab: see note - [facility] LB CBC AUTO DIFF Reviewed date:10/27/2024 01:04:56 PM Interpretation: Performing Lab: Notes/Report: [facility] , White Blood Count 17.3 [...] Performing Lab: see note ML - [facility] LB CT abdomen pelvis w con Reviewed date:10/08/2024 05:20:20 PM Interpretation: Performing Lab: Notes/Report: Source Facility: [place] [address] CT Scan Report Signed Patient: RYLEE BURTON MR#: [id number] : 1975 Acct:[id number] Age/Sex: 49 / F ADM Date: 10/07/24 Loc: [place] 202- Attending Dr: Cynthia Hernandez M.D. Ordering Physician: Cynthia Hernandez M.D. Date of Service: 10/08/24 Procedure(s): CT abdomen pelvis w con Accession Number(s): [id number] cc: Meenakshi Swenson M.D. [place] [address] Patient Name: RYLEE BURTON MRN: [facility]:[id number] date: 1975 Sex: F Assigned Patient Location: [place] Current Patient Location: [place] Accession/Order Number: [id number] Exam Date: 10/08/2024 08:22 Report Date: 10/08/2024 [...] Bach M.D. 10/08/2024 8:38 AM Dictation Location: [place] [address] Electronically authenticated by: [id number] Y Date: 10/08/2024 08:38 Dictated By: Iraida Bach M.D. Signed By: 10/08/24 0841 DD/ TD/TT: Kick Press Setter: SARS-CoV-2 Ag* Reviewed date:10/08/2024 05:20:20 PM Interpretation: Performing Lab: Notes/Report: [facility] , SARS-CoV-2 Ag NEGATIVE NEGATIVE This [...] revoked sooner. Performing Lab: see note - [facility] Acute Hepatitis Reviewed date:10/09/2024 05:21:52 PM [...] exists to indicate HCV infection. Performed at: [address] [id number] Insurance Claim Auditor: Abel Finnegan PhD, Phone: [phone] Performing Lab: see note [facility] LB HIV Ab/p24 Ag with Reflex Reviewed date:10/09/2024 05:21:52 PM Interpretation: Performing Lab: Notes/Report: [facility] , HIV Ab/p24 Ag Screen Non Reactive Non Reactive HIV-1/HIV-2 antibodies and HIV-1 p24 antigen were NOT detected. There is no laboratory evidence of HIV infection. HIV Negative Performed at: [address] [id number] Insurance Claim Auditor: Abel Finnegan PhD, Phone: [phone] Performing Lab: see note LC - [facility] LB Prothrombin Time INR Reviewed date:10/08/2024 05:20:19 PM Interpretation: Performing Lab: Notes/Report: [facility] , Prothrombin Time 13.5 9.0-11.6 sec INR 1.31 DESIRED INR: 2.0-3.0 CONDITIONS NOT LISTED BELOW 2.5-3.5 FOR PROSTHETIC HEART VALVE REPLACEMENT 2.5-3.5 RECURRENT THROMBOSIS Performing Lab: see note ML - [facility] LB PTT Reviewed date:10/08/2024 05:20:19 PM Interpretation: Performing Lab: Notes/Report: [facility] , Partial Thromboplastin Time 33.7 22.3-36.2 sec Performing Lab: see note - [facility] LB PROF 14(COMP METB) Reviewed date:10/08/2024 05:20:19 PM Interpretation: Performing Lab: Notes/Report: [facility] , Sodium 140 136-145 mmol/L [...] 0.2 Performing Lab: see note ML - [facility] LB PHOSPHORUS Reviewed date:10/08/2024 05:20:19 PM Interpretation: Performing Lab: Notes/Report: [facility] , Phosphorus 3.9 2.6-4.7 mg/dL Performing Lab: see note ML - [facility] LB MAGNESIUM Reviewed date:10/08/2024 05:20:19 PM Interpretation: Performing Lab: Notes/Report: [facility] , Magnesium 2.0 1.8-2.4 mg/dL Performing Lab: see note ML - [facility] LB LACTATE or LACTIC ACID Reviewed date:10/08/2024 05:20:19 PM Interpretation: Performing Lab: Notes/Report: [facility] , Lactate/Lactic Acid 0.5 0.4-2.0 mmol/L Performing Lab: see note ML - [facility] LB INFLUENZA A AND B AG Reviewed date:10/08/2024 05:20:19 PM Interpretation: Performing Lab: Notes/Report: [facility] , Influenza Virus A Antigen [...] Performing Lab: see note ML - [facility] LB CPK Reviewed date:10/08/2024 05:20:19 PM Interpretation: Performing Lab: Notes/Report: [facility] , Creatine Kinase 10 26-192 U/L Performing Lab: see note ML - [facility] LB CBC AUTO DIFF Reviewed date:10/08/2024 05:20:19 PM Interpretation: Performing Lab: Notes/Report: [facility] , White Blood Count 22.2 [...] 3/uL Performing Lab: see note ML - [facility] LB ECG 12 lead Reviewed date:10/11/2024 03:08:40 PM Interpretation: Performing Lab: Notes/Report: Source Facility: [place] [address] Electrocardiograph Report Signed Patient: RYLEE BURTON MR#: [id number] : 1975 Acct:[id number] Age/Sex: 49 / F ADM Date: 10/07/24 Loc: [place] 202-[address]: Cynthia Hernandez M.D. Ordering Physician: Kobe Jonas M.D. 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 Signed By: 10/10/24 0946 DD/ 51 TD/TT: Kick Press Setter: CT head/brain wo con Reviewed date:10/07/2024 08:47:32 PM Interpretation: Performing Lab: Notes/Report: Source Facility: [place] [address] CT Scan Report Signed Patient: RYLEE BURTON MR#: [id number] : 1975 Acct:[id number] Age/Sex: 49 / F ADM Date: 10/07/24 Loc: ER Attending Dr: Ordering Physician: Genet Nam M.D. Date of Service: 10/07/24 Procedure(s): CT head/brain wo con Accession Number(s): [id number] cc: Meenakshi Swenson M.D. [place] [address] Patient Name: RYLEE BURTON MRN: [id number] date: 1975 Sex: F Assigned Patient Location: ER Current Patient Location: ED.MAIN Accession/Order Number: [id number] Exam Date: 10/07/2024 18:52 Report Date: 10/07/2024 [...] Wheatley M.D. 10/07/2024 6:55 PM Dictation Location: [place] [address] Electronically authenticated by: [id number] Y Date: 10/07/2024 18:55 Dictated By: Seven Wheatley M.D. Signed By: 10/07/241857 DD/ 54 TD/TT: Kick Press Setter: ECG 12 lead Reviewed date:10/11/2024 03:08:40 PM Interpretation: Performing Lab: Notes/Report: Source Facility: [place] [address] Electrocardiograph Report Signed Patient: RYLEE BURTON MR#: [id number] : 1975 Acct:[id number] Age/Sex: 49 / F ADM Date: 10/07/24 Loc: MS 202-[address]: Cynthia Hernandez M.D. Ordering Physician: Genet Nam M.D. 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 Signed By: 10/10/24 0946 DD/ 1757 TD/TT: Kick Press Setter: ANDRA Qualitative* Reviewed date:10/07/2024 08:47:32 PM Interpretation: Performing Lab: Notes/Report: [facility] , HCG Qualitative NEGATIVE NEGATIVE Performing Lab: see note ML - [facility] LB Manual Differential Reviewed date:10/07/2024 08:47:32 PM Interpretation: Performing Lab: Notes/Report: [facility] , Segmented Neutrophils % Manual 79.0 43.0-75.0 [...] Performing Lab: see note ML - [facility] LB D-DIMER Reviewed date:10/07/2024 08:47:32 PM Interpretation: Performing Lab: Notes/Report: [facility] , D Dimer 0.59 <=0.59 [...] hospitalization. Performing Lab: see note ML - [facility] LB CBC AUTO DIFF Reviewed date:10/07/2024 08:47:32 PM Interpretation: Performing Lab: Notes/Report: [facility] , White Blood Count 27.0 [...] fL Performing Lab: see note ML - [facility] LB BNP Reviewed date:10/07/2024 08:47:32 PM Interpretation: Performing Lab: Notes/Report: [facility] , NT Pro B Type Natriuretic Pept 963.0 <=900.0 pg/mL Performing Lab: see note ML - [facility] LB Reticulocyte Pct Auto Reviewed date:10/08/2024 05:20:20 PM Interpretation: Performing Lab: Notes/Report: [facility] , Reticulocyte Pct Auto 1.34 0.60-3.10 % Performing Lab: see note ML - [facility] LB Erythrocyte Sedimentation Ra te Reviewed date:10/08/2024 05:20:20 PM Interpretation: Performing Lab: Notes/Report: [facility] , Erythrocyte Sedimentation Rate >130 <=20 mm/hr Performing Lab: see note ML - [facility] LB CBC AUTO DIFF Reviewed date:10/08/2024 05:20:20 PM Interpretation: Performing Lab: Notes/Report: [facility] , White Blood Count 25.4 [...] 9.5-13.5 fL Performing Lab: see note - [facility] LB Manual Differential Reviewed date:09/24/2024 07:13:51 PM Interpretation: Performing Lab: Notes/Report: [facility] , Segmented Neutrophils % Manual [...] 2+ Performing Lab: see note ML - [facility] LB PROF 14(COMP METB) Reviewed date:09/24/2024 07:13:51 PM Interpretation: Performing Lab: Notes/Report: [facility] , Sodium 137 136-145 mmol/L [...] Ratio 0.3 Performing Lab: see note - [facility] PROF 14(COMP METB) Reviewed date:09/21/2024 01:12:51 PM Interpretation: Performing Lab: Notes/Report: [facility] , Sodium 140 136-145 mmol/L [...] Ratio 0.3 Performing Lab: see note - [facility] CT abdomen pelvis w con Reviewed date:09/21/2024 01:12:51 PM Interpretation: Performing Lab: Notes/Report: Source Facility: [facility]-[address] [place] [address] [place] [address] CT Scan Report Signed Patient: RYLEE BURTON MR#: [id number] : 1975 Acct:[id number] Age/Sex: 49 / F ADM Date: 09/15/24 Loc: [place] 202-[address]: Meenakshi Swenson M.D. Ordering Physician: Meenakshi Swenson M.D. Date of Service: 09/21/24 Procedure(s): CT abdomen pelvis w con Accession Number(s): [id number] cc: Domi Altamirano NP [place] [address] [place] [place], [place] [address] Patient Name: RYLEE BURTON MRN: [id number] date: 1975 Sex: F Assigned Patient Location: [place] Current Patient Location: [place] Accession/Order Number: [id number] Exam Date: 09/21/2024 10:41 Report Date: 09/21/2024 [...] Higuera M.D. 09/21/2024 10:48 AM Dictation Location: [place] [address] Electronically authenticated by: [id number] Y Date: 09/21/2024 10:48 Dictated By: Bonilla Higuera M.D. Signed By: 09/21/24 1051 DD/ 1048 TD/TT: Kick Press Setter: PROF Pope(COMP METB) Reviewed date:09/21/2024 01:12:51 PM Interpretation: Performing Lab: Notes/Report: [facility] , Sodium 140 136-145 mmol/L [...] Performing Lab: see note ML - [facility] LB LIPASE Reviewed date:09/21/2024 01:12:51 PM Interpretation: Performing Lab: Notes/Report: Comment use am blood for amylase lipase? [facility] , Lipase 22.0 16.0-77.0 U/L Performing Lab: see note ML - [facility] LB CBC AUTO DIFF Reviewed date:09/21/2024 01:12:51 PM Interpretation: Performing Lab: Notes/Report: [facility] , White Blood Count 22.7 [...] Performing Lab: see note ML - [facility] LB AMYLASE Reviewed date:09/21/2024 01:12:51 PM Interpretation: Performing Lab: Notes/Report: Comment use am blood for amylase lipase? [facility] , Amylase 15 25-115 U/L Performing Lab: see note ML - [facility] LB Manual Differential Reviewed date:09/21/2024 01:12:51 PM Interpretation: Performing Lab: Notes/Report: [facility] , Segmented Neutrophils % Manual [...] Anisocytosis 1+ Performing Lab: see note - [facility] LB PROF 14(COMP METB) Reviewed date:09/21/2024 01:12:51 PM Interpretation: Performing Lab: Notes/Report: [facility] , Sodium 141 136-145 mmol/L Potassium [...] Ratio 0.3 Performing Lab: see note - [facility] LB CBC AUTO DIFF Reviewed date:09/21/2024 01:12:51 PM Interpretation: Performing Lab: Notes/Report: [facility] , White Blood Count 21.8 4.0-11.0 10 3/uL Red Blood Count 2.69 4.20-5.40 10 6/uL Hemoglobin 6.7 12.0-16.0 g/dL RESULTS CALLED TO Gayle Saxena RN @BY Gurmeet Rocha MLT at 0656 Hematocrit 21.9 36.0-48.0 % RESULTS CALLED TO Gayle Saxena RN @BY FLAKITO StocktonT at 0656 Mean Corpuscular Volume 81.4 81.0-99.0 fL Mean Corpuscular Hemoglobin 24.9 26.7-34.0 pg Mean Corpuscular HGB Conc 30.6 29.9-35.2 g/dL Red Cell Distribution Width 22.8 11.0-15.0 % Platelet Count 853 150-450 10 3/uL Mean Platelet Volume 8.5 9.5-13.5 fL Performing Lab: see note - [facility] LB Manual Differential Reviewed date:09/21/2024 01:12:51 PM Interpretation: Performing Lab: Notes/Report: [facility] , Segmented Neutrophils % Manual [...] Anisocytosis 1+ Performing Lab: see note - [facility] LB PROF 14(COMP METB) Reviewed date:09/21/2024 01:12:51 PM Interpretation: Performing Lab: Notes/Report: [facility] , Sodium 138 136-145 mmol/L [...] Ratio 0.3 Performing Lab: see note - [facility] CBC AUTO DIFF Reviewed date:09/21/2024 01:12:51 PM Interpretation: Performing Lab: Notes/Report: [facility] , White Blood Count 17.4 4.0-11.0 10 [...] 8.2 9.5-13.5 fL Performing Lab: see note [facility] LB Lower Respiratory Culture Reviewed date:09/22/2024 09:17:56 PM Interpretation: Performing Lab: Notes/Report: [facility] , Lower Respiratory Culture See Below For Report Lower Respiratory Culture WILL FOLLOW Lower Respiratory Culture Routine respiratory luke Lower Respiratory Culture WILL FOLLOW Lower Respiratory Culture [facility] Lower Respiratory Culture WILL FOLLOW Lower Respiratory Culture [address] [place], [place] [id number] Lower Respiratory Culture WILL FOLLOW Lower Respiratory Culture Insurance Claim Auditor: Abel Finnegan PhD, Phone: [phone] Lower Respiratory Culture WILL FOLLOW Performing Lab: see note - [facility] LB SEE REPORT - Security Assessor Id information not found for OBX-specific blueprint reproducer legend Gram Stain Evaluation Reviewed date:09/22/2024 09:17:56 [...] 4 See Below For Report Result 4 TOOLS ADMINISTRATOR Performing Lab: see note LC - [facility] [...] Lab: see note LC - [facility] LB TSH Reviewed date:09/18/2024 07:21:43 PM Interpretation: Performing Lab: Notes/Report: Comment use am blood [facility] , Thyroid Stimulating Hormone 0.751 0.358-3.740 uIU/mL Performing Lab: see note - [facility] LB T4 Reviewed date:09/18/2024 07:21:43 PM Interpretation: Performing Lab: Notes/Report: Comment use am blood [facility] , T4 Thyroxine 6.60 4.80-13.90 ug/dL Performing Lab: see note - [facility] LB Reason For Referral Diagnosis 1 Thrombocythemia (D47 .3) Referral Organization [facility] Referring Provider First Name Mansoor Referring Provider Last Name Leela Referring Provider [facility] ino Referred Provider Timmy Duval Referred Provider Specialty Oncology Referral Priority Routine Reason please schedule lane Diagnosis 1 CHF (congestive hear t failure) (I50.9) Referral Organization [facility] Referring Provider First Name Mansoor Referring Provider Last Name Leela Referring Provider [facility] Referred Provider [facility] Cardiology, [facility] Referred Provider Specialty Cardiology Referral [...] 6 hrs; Duration: 30 days M54.9 Active Linezolid 600 MG 1 tablet Orally twice a day; Duration: 10 days 01/05/2025 Active Omeprazole 40 MG 1 tablet Oral [...] needed Orally every 6 hrs PRN Active metroNIDAZOLE 500 MG 1 tablet Orally Three times a day; Duration: 10 days 01/06/2025 Active Gabapentin 600 MG TAKE 1/2 TABLET [...] Status W/U Status Risk Notes Problem Cachexia (447529105) Cachexia (R64) Active conf irmed Problem Hypertension (68140037) Hypertension (I10) Active confirmed Problem Asthma (976736034) Asthma (J45.909) Active conf irmed Problem COPD - Chronic obstructive pulmonary disease (28057263) COPD (chronic obstructive pulmonary disease) (J44.9) Active confirmed Problem Congestive heart failure (13474880) CHF (congestive heart failure) (I50.9) Active confirmed Problem Back pain (277640440) Back pain (M54.9) Active confirmed Problem Boil (12455003) Boil (L02.92) Active confirmed Problem Thrombocytopenia (485358212) Thrombocytopenia (D69.6) Active confirmed Problem Thrombocythemia (1749028) Thrombocythemia (D47.3) Active confirmed Problem Pertussis (66677333) Pertussis (A37.90) Active confirmed Problem Myeloproliferative disorder (565915981) Myeloproliferative disorder (D47.1) Active confirmed Problem hypercholesterolemia (disorder) (89412945) Hypercholesteremia (E78.00) Active confirmed Problem Severe malnutrition (24978519) Severe malnutrition (E43) Active confirmed Problem Anemia (588569200) Acute anemia (D64.9) Active confirmed Vital Signs Blood pressure diastolic 68 mm Hg 12/30/2024 Height 66 in 12/30/2024 Blood pressure systolic 104 mm Hg 12/30/2024 Weight 83.6 lbs 12/30/2024 BMI 13.49 kg/m2 12/30/2024 Encounters Encounter Location Date Provider Diagnosis [facility] [address] [place] [address] 09/21/2024 Mansoor Swenson [facility] [address] [place] [address] 09/23/2024 Mansoor Swenson [facility] [address] [place] [address] 09/23/2024 Mansoor Swenson Pertussis A37.90 [facility] [address] [facility] [place] [address] 09/23/2024 Mansoor alisa [facility] [address] [place] [address] 09/24/2024 Mansoor Swenson Acute anemia D64.9 [facility] [address] [place] [address] 12/29/2024 Mansoor Swenson [facility] [address] [place] [address] 12/31/2024 Mansoor Swenson [facility] [address] [place] [address] 01/01/2025 Mansoor Swenson [facility] [address] [place] [address] 01/03/2025 Mansoor alisa [facility] [address] [place] [address] 01/06/2025 Mansoor Swenson [facility] [address] [place] [address] 12/07/2024 Mansoor Swenson [facility] [address] [place] [address] 12/12/2024 Mansoor Swenson [facility] [address] [place] [address] 12/15/2024 Mansoor Swenson [facility] [address] [place] [address] 12/16/2024 Mansoor Swenson [facility] [address] [place] [address] 12/24/2024 Mansoor Swenson [facility] [address] [place] [address] 12/24/2024 Mansoor Swenson Hyperkalemia E87.5 [facility] [address] [place] [address] 11/27/2024 Mansoor Swenson [facility] [address] [place] [address] 11/28/2024 Mansoor Swenson [facility] [address] [place] [address] 11/28/2024 Mansoor Rody [facility] [address] [facility] [place] [place] [address] 12/01/2024 Mansoor Hoy Thrombocythemia D47. 3 [facility] [address] [facility] [place] [address] 12/01/2024 Mansoor Rody CHF (congestive hear t failure) I50.9 [facility] [address] [place] [address] 12/04/2024 Mansoor Hoy [facility] [address] [place] [address] 11/13/2024 Mansoor Rody Thrombocythemia D47. 3 [facility] [address] [place] [address] 11/18/2024 Mansoor Swenson [facility] [address] [place] [address] 11/18/2024 Mansoor Swenson [facility] [address] [place] [address] 11/20/2024 Mansoor Swenson [facility] [address] [place] [address] 11/21/2024 Mansoor Swenson [facility] [address] [place] [address] 11/26/2024 Mansoor Swenson [facility] [address] [place] [address] 10/20/2024 Mansoor Swenson [facility] [address] [facility] [place] [address] 10/27/2024 Mansoor Rody [facility] [address] [facility] [place] [facility] [place] [address] 10/31/2024 Mansoor Hoy Anemia D64.9 and Generalized weakness R53.1 [facility] [address] [facility] [place] [address] 11/02/2024 Mansoor Swenson [facility] [address] [place] [address] 11/05/2024 Mansoor Swenson [facility] [address] [facility] [place] [address] 11/13/2024 Mansoor Leela [facility] [address] [facility] [place] [address] 10/03/2024 Mansoor Swenson COPD (chronic obstru ctive pulmonary disease) J44.9 [facility] [address] [facility] [place] [address] 10/07/2024 Mansoor Leela [facility] [address] [facility] [place] [address] 10/11/2024 Mansoor Rodalisa [facility] [address] [facility] [place] [address] 10/20/2024 Mansoor Rodalisa [facility] [address] [facility] [place] [address] 10/20/2024 [facility] [address] [facility] [place] [address] 10/20/2024 Mansoor Swenson [facility] [address] [facility] [place] [address] 09/30/2024 Katerine Meron [facility] [address] [facility] [place] [address] 10/20/2024 Mansoor Swenson Acute bronchitis, unspecified organism J20.9 ; Hypertension I10 ; Asthma J45.909 and Myeloproliferative disorder D47.1 [facility] [address] [facility] [place] [address] 12/01/2024 Mansoor Swenson Hypertension I10 ; C OPD (chronic obstructive pulmonary disease) J44.9 ; Thrombocythemia D47.3 ; Acute anemia D64.9 and Back pain M54.9 [facility] [address] [facility] [place] [address] 12/24/2024 Mansoor Swenson Boil L02.92 [facility] [address] [facility] [place] [address] 12/30/2024 Mansoor Swenson Boil L02.92 [facility] [address] [facility] [place] [address] 10/01/2024 Mansoor Swenson COPD (chronic obstru ctive pulmonary disease) J44.9 ; Anemia D64.9 and Thrombocythemia D47.3 Assessments Encounter Date Diagnosis (ICD Code) Assessment Notes Treatment Notes Treatment Clinical Notes Section Notes 10/20/2024 Acute bronchitis, unspecified organism (ICD-10 - J20.9) Rest and drink more liquids, especially water. You may use a humidifier or vaporizer to help keep the drainage moist. Xwpl-bag-prxiakq Nasal Saline may help the stuffy and runny nose. Use Ibuprofen and or Tylenol as needed for fever, chills, body aches or pain. Children 5 years old should not be given eayu-rzs-wcijefb cough and cold medications such as guaifenesin and dextromethorphan. If you're over age 5, you may try lodg-aau-lcyvlxi cold medications such as guaifenesin and dextromethorphan, [...] - I50.9) 12/24/2024 Hyperkalemia (ICD-10 - E87.5) 10/01/2024 COPD (chronic obstructive pulmonary disease) (ICD-10 [...] Coverage End Date [employer] [address] [place] [address] [id number] Rylee Burton Self - patient is [...] Hospitalization History Reason Date(Month/Year) abd pain 12/18 [facility]/ Myeloproliferative Neoplasms 09/2024 Anemia, Weakness 08/2024
--- OUTSIDE RECORDS SUMMARY | 2025-01-09 11:52 | XMS_ITS | Encounter Summary ---
Demographics Address [address] [facility] [address] [place] [address] Mobile Phone Home Phone Work Phone Email Address Preferred Language en Marital Status Hoahaoism Affiliation Unknown Race White Ethnic Group Not or Lati no Author Organization [facility] Address [address] [place] [address] Care Team Providers Care Lamination Technician Name Role Phone Domi Altamirano CENTURA TECHNICAL LEAD SENIOR DEVELOPER Unavailable [phone] Hiren Horton MD Primary Care Provider [phone] Domi Altamirano NP Unavailable [phone] Domi Altamirano NP Unavailable [phone] Unallocated, Noms Provider Primary Care Provi taylor Encounter Details Date Type Department Care Team (Late st Contact Info) Description 09/22/2024 Orders Only [facility] [address] [facility] [place] [address] Nakul Swenson MD [address] [facility] [place] [address] Social History Tobacco Use Types [...] declined 10/08/2023 How often do you attend congregation or rastafarian serv ices? Never 10/08/2023 Do you belong to any clubs o r organizations such as congregation groups, unions, fraternal or athletic groups, or [...] care, and heating? Very hard 10/08/2023 [facility] [place] of Occupat ional Health - Occupational Stress [...] any time in the past 12 m [facility], were you homeless [...] on filedocumented in this encounter Care Teams Lamination Technician Relationship Specialty Start Date End Date Hiren Horton MD PCP - General Family Medicine 07/26/23 10/13/24 Domi Altamirano NP [address] [place] [address] PCP - [place] [employer] 08/24/24 Unallocated, Noms Mariaelena, [address] [place] [address] PCP - General Family Medicine 10/14/24 Domi Altamirano NP Nurse Practitioner Family Medicine 03/26/22 10/13/24 Domi Altamirano NP Nurse Practitioner Family Medicine 07/26/23 10/13/24 documented as of this encounter
--- OUTSIDE RECORDS SUMMARY | 2025-01-09 11:52 | XMS_ITS | Encounter Summary ---
Demographics Address [address] [facility] [address] [place] [address] Mobile Phone Home Phone Work Phone Email Address Preferred Language en Marital Status Mandaeism Affiliation Unknown Race White Ethnic Group Not or Lati no Author Organization [facility] Address [address] [place] [address] Care Team Providers Care Industrial Twisting Machine Operator Name Role Phone Domi Altamirano NP Unavailable [phone] Hiren Horton MD Primary Care Provider Domi Altamirano MACHINIST FIRST CLASS Unavailable [phone] Domi Altamirano NP Unavailable [phone] Unallocated, Noms Provider Primary Care Provi taylor Encounter Details Date Type Department Care Team (Late st Contact Info) Description 09/18/2024 Abstract [facility] [address] [place] [address] Domi Altamirano, MACHINIST FIRST CLASS [address] [facility] [place] [address] Social History Tobacco Use Types Packs/Day Years [...] How often do you attend lutheran or buddhist serv ices? Never 10/08/2023 Do [...] and heating? Very hard 10/08/2023 [facility] [place] of Occupat ional Health - Occupational Stress [...] any time in the past 12 m [facility], were you homeless or living [...] on filedocumented in this encounter Care Teams Industrial Twisting Machine Operator Relationship Specialty Start Date End Date Hiren Horton MD PCP - General Family Medicine 07/26/23 10/13/24 Domi Altamirano NP [address] [place] [address] PCP - [facility] 08/24/24 Unallocated, Noms MD Mariaelena [address] [place] [address] PCP - General Family Medicine 10/14/24 Domi Altamirano NP Nurse Practitioner Family Medicine 03/26/22 10/13/24 Domi Altamirano NP Nurse Practitioner Family Medicine 07/26/23 10/13/24 documented as of this encounter
--- OUTSIDE RECORDS SUMMARY | 2025-01-09 11:52 | XMS_ITS | Clinical Summary ---
Demographics Address [address] [facility] [address] [place] [address] Home Phone Email Address Preferred Language en Marital Status Sabianist Affiliation Unknown Race White Ethnic Group Not or Lati no Author Organization [facility] Address [address] [place] [address] Care Team Providers Care Development Writer Name Role Phone Nakul Swenson MD Primary Care Provider [phone] Allergies Active Allergy Reactions Criticality Noted Date [...] Type Department Care Team Description 12/08/2024 Abstract [facility] [address] [place] [address] Dorene Catherine MD 12/05/2024 3:40 PM EDT Office Visit [facility] [address] [place] [facility] [place] [address] Ashlee Hoskins MD Chronic systolic heart failure (CMS/HCC) (Primary Dx); Cardiomyopathy, unspecified type (CMS/HCC); Sinus tachycardia; Nonrheumatic mitral valve regurgitation; Essential hypertension, benign; Type 2 diabetes mellitus without complication, without long-term current use of insulin (CMS/HCC); Mixed hyperlipidemia; 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); Current smoker 12/02/[address] [address] Lina Mi MA Tachycardia (Primary Dx) from [...] Info) Description 01/21/2025 8:00 AM EDT Appointment [facility] [address] [place] [address] Health Maintenance Due Date Last [...] topic Meningococcal Vaccine Aged Out No kim ekvin eligible based on patient's age to complete [...] Billing Address Personal/Family Self 1975 [address] [place] [address] [facility] Care Teams Development Writer Relationship Specialty Start Date End Date Nakul Swenson MD [address] [facility] [address] PCP - General Family Medicine 12/01/24
--- OUTSIDE RECORDS SUMMARY | 2025-01-09 11:52 | XMS_ITS | Encounter Summary ---
Demographics Address [address] [facility] [address] [place] [address] Mobile Phone Home Phone Work Phone Email Address Preferred Language en Marital Status Anglican Affiliation Unknown Race White Ethnic Group Not or Lati no Author Organization [facility] Address [address] [place] [address] Care Team Providers Care Waitress Name Role Phone Domi Altamirano NP Unavailable [phone] Hiren Horton MD Primary Care Provider Domi Altamirano HOOP FLARING MACHINE OPERATOR Unavailable [phone] Domi Altamirano NP Unavailable [phone] Unallocated, Noms Provider Primary Care Provi taylor Encounter Details Date Type Department Care Team (Late st Contact Info) Description 09/22/2024 Abstract [facility] [address] [place] [address] Domi Altamirano, HOOP FLARING MACHINE OPERATOR [address] [facility] [place] [address] Social History Tobacco Use Types Packs/Day Years [...] How often do you attend quaker or episcopalian serv ices? Never 10/08/2023 Do you belong [...] heating? Very hard 10/08/2023 [facility] [place] of Occupat ional Health - Occupational Stress [...] on filedocumented in this encounter Care Teams Waitress Relationship Specialty Start Date End Date Hiren Horton MD PCP - General Family Medicine 07/26/23 10/13/24 Domi Altamirano NP [address] [place] [address] PCP - [facility] 08/24/24 Unallocated, Noms MD Mariaelena [address] [place] [address] PCP - General Family Medicine 10/14/24 Domi Altamirano NP Nurse Practitioner Family Medicine 03/26/22 10/13/24 Domi Altamirano NP Nurse Practitioner Family Medicine 07/26/23 10/13/24 documented as of this encounter
--- OUTSIDE RECORDS SUMMARY | 2025-01-09 11:52 | XMS_ITS | Encounter Summary ---
Demographics Address [address] [facility] [address] [place] [address] Mobile Phone Home Phone Work Phone Email Address Preferred Language en Marital Status Worship Affiliation Unknown Race White Ethnic Group Not or Lati no Author Organization [facility] Address [address] [place] [address] Care Team Providers Care Youth Services Librarian Name Role Phone Domi Altamirano NP Unavailable [phone] Hiren Horton MD Primary Care Provider [phone] Domi Altamirano CARBIDE GRINDER Unavailable [phone] Domi Altamirano NP Unavailable [phone] Unallocated, Noms Provider Primary Care Provi taylor Encounter Details Date Type Department Care Team (Late st Contact Info) Description 09/17/2024 Abstract [facility] [address] [place] [address] Domi Altamirano, CARBIDE GRINDER [address] [facility] [place] [address] Social History Tobacco Use Types Packs/Day Years [...] How often do you attend bahai or faith serv ices? Never 10/08/2023 Do you belong [...] medical care, and heating? Very hard 10/08/2023 [facility] [place] of Occupat ional Health - Occupational Stress [...] time in the past 12 m [facility], were you homeless or living [...] on filedocumented in this encounter Care Teams Youth Services Librarian Relationship Specialty Start Date End Date Hiren Horton MD PCP - General Family Medicine 07/26/23 10/13/24 Domi Altamirano NP [address] [place] [address] PCP - [facility] 08/24/24 Unallocated, Noms MD Mariaelena [address] [place] [address] PCP - General Family Medicine 10/14/24 Domi Altamirano NP Nurse Practitioner Family Medicine 03/26/22 10/13/24 Domi Altamirano NP Nurse Practitioner Family Medicine 07/26/23 10/13/24 documented as of this encounter
--- OUTSIDE RECORDS SUMMARY | 2025-01-09 11:53 | XMS_ITS | Encounter Summary ---
Demographics Address [address] [place] [address] Mobile Phone Home Phone Work Phone Email Address Preferred Language en Marital Status Religion Affiliation Unknown Race White Ethnic Group Not or Lati no Author Organization [facility] Address [address] [place] [address] Care Team Providers Care Environmental Compliance Manager Name Role Phone Domi Altamirano NP Unavailable [phone] Hiren Horton MD Primary Care Provider [phone] Domi Altamirano NP Unavailable [phone] Domi Altamirano NP Unavailable [phone] Unallocated, Noms Provider Primary Care Provi [...] How often do you attend jain or mormonism serv ices? Never 10/08/2023 Do [...] [facility] of Occupat ional [facility] - Occupational Stress Questionnaire Answer Date [...] AM EDT Narrative 10/09/2023 7:09 [place] [address] Ultrasound Report Signed Patient: JAIME MERRILL MR#: [id number] : 1975 Acct:[id number] Age/Sex: 48 / F ADM Date: 10/08/23 Loc: US Attending Dr: Domi Howard NP Ordering Physician: Domi Howard NP Date of Service: 10/08/23 Procedure(s): US pelvis transvaginal Accession Number(s): [id number] cc: Domi Altamirano NP; Domi Howard NP [address] [address] Patient Name: JAIME MERRILL MRN: [id number] date: 1975 Sex: F Assigned Patient Location: US Current Patient Location: Accession/Order Number: [id number] Exam Date: 10/08/2023 18:28 Report Date: 10/09/2023 [...] M.D. Signed By: 10/09/2309 DD/ 5 TD/TT: Lighting Adviser: Procedure Note Radiology, Radiologist, MD - 10/09/2023 [place] [address] Ultrasound Report Signed Patient: JAIME MERRILL KMR#: [id number] : 1975Acct:[id number] Age/Sex: 48 / FADM Date: 10/08/23 Loc: US Attending Dr: Domi Howard NP Ordering Physician: Domi Howard NP Date of Service: 10/08/23 Procedure(s): US pelvis transvaginal Accession Number(s): [id number] cc: Domi Altamirano NP; Domi Howard NP The [address] [address] Patient Name: JAIME MERRILL MRN: [id number] date: 1975 Sex: F Assigned Patient Location: US Current Patient Location: Accession/Order Number: [id number] Exam Date: 10/08/2023 18:28 Report Date: 10/09/2023 [...] Joao Barbosa M.D. Signed By:10/09/23 0709 DD/ 5 TD/TT: Lighting Adviser: us Generic External Data Provider [facility] Final Result documented in this encounter Visit Diagnoses Not on filedocumented in this encounter Care Teams Environmental Compliance Manager Relationship Specialty Start Date End Date Hiren Horton MD PCP - General Family Medicine 07/26/23 10/13/24 Domi Altamirano NP [address] [place] [address] [facility] 08/24/24 Unallocated, Noms Provider, [address] [place] [address] PCP - General Family Medicine 10/14/24 Domi Altamirano NP Nurse Practitioner Family Medicine 03/26/22 10/13/24 Domi Altamirano NP Nurse Practitioner Family Medicine 07/26/23 10/13/24 documented as of this encounter
--- OUTSIDE RECORDS SUMMARY | 2025-01-09 11:53 | XMS_ITS | Encounter Summary ---
Demographics Address [address] [place] [address] Mobile Phone Home Phone Work Phone Email Address Preferred Language en Marital Status Zoroastrian Affiliation Unknown Race White Ethnic Group Not or Lati no Author Organization [facility] Address [address] [facility] [place] [address] Care Team Providers Care Director Of Parks And Recreation Name Role Phone Domi Altamirano NP Unavailable [phone] Hiren Horton MD Primary Care Provider [phone] Domi Altamirano NP Unavailable [phone] Domi Altamirano NP Unavailable [phone] Unallocated, Noms Provider Primary Care Provi taylor Encounter Details Date Type Department Care Team (Late st Contact Info) Description 10/09/2023 Orders Only [facility] [address] [place] [address] Domi Munroe MD [address] [place], [place] [address] Social History Tobacco Use Types Packs/Day Years [...] How often do you attend christianity or oriental orthodox serv ices? Never 10/08/2023 [...] medical care, and heating? Very hard 10/08/2023 [facility] [place] of Occupat ional Health - Occupational Stress [...] filedocumented in this encounter Care Teams Director Of Parks And Recreation Relationship Specialty Start Date End Date Hiren Horton MD PCP - General Family Medicine 07/26/23 10/13/24 Domi Altamirano NP [address] [place] [address] PCP - [place] [employer] 08/24/24 Unallocated, Noms Mariaelena, [address] [place] [address] PCP - General Family Medicine 10/14/24 Domi Altamirano NP Nurse Practitioner Family Medicine 03/26/22 10/13/24 Domi Altamirano NP Nurse Practitioner Family Medicine 07/26/23 10/13/24 documented as of this encounter
--- OUTSIDE RECORDS SUMMARY | 2025-01-09 11:53 | XMS_ITS | Encounter Summary ---
Demographics Address [address] [facility] [address] [place] [address] Mobile Phone Home Phone Work Phone Email Address Preferred Language en Marital Status Anabaptist Affiliation Unknown Race White Ethnic Group Not or Lati no Author Organization [facility] Address [address] [place] [address] Care Team Providers Care Primary Class Teacher Name Role Phone Domi Altamirano NP Unavailable [phone] Hiren Horton MD Primary Care Provider Domi Altamirano INSTRUCTOR BUS [employer] Unavailable [phone] Domi Altamirano NP Unavailable [phone] Unallocated, Noms Provider Primary Care Provi taylor Encounter Details Date Type Department Care Team (Late st Contact Info) Description 01/10/2024 Abstract [facility] [address] [place] [address] Domi Altamirano, INSTRUCTOR [employer] [address] [facility] [place] [address] Social History Tobacco Use Types Packs/Day Years [...] declined 10/08/2023 How often do you attend zoroastrianism or moravian serv ices? Never 10/08/2023 Do you belong to any clubs o r organizations such as zoroastrianism groups, unions, fraternal or athletic groups, or [...] medical care, and heating? Very hard 10/08/2023 [facility] [place] of Occupat ional Health - Occupational Stress [...] in the past [address] [facility], were you homeless or living [...] on filedocumented in this encounter Care Teams Primary Class Teacher Relationship Specialty Start Date End Date Hiren Horton MD PCP - General Family Medicine 07/26/23 10/13/24 Domi Altamirano NP [address] [place] [address] PCP - [facility] 08/24/24 Unallocated, Noms MD Mariaelena [address] [place] [address] PCP - General Family Medicine 10/14/24 Domi Altamirano NP Nurse Practitioner Family Medicine 03/26/22 10/13/24 Domi Altamirano NP Nurse Practitioner Family Medicine 07/26/23 10/13/24 documented as of this encounter
--- OUTSIDE RECORDS SUMMARY | 2025-01-09 11:53 | XMS_ITS | Encounter Summary ---
Demographics Address [address] [place] [address] Mobile Phone Home Phone Work Phone Email Address Preferred Language en Marital Status Jainism Affiliation Unknown Race White Ethnic Group Not or Lati no Author Organization [facility] Address [address] [place] [address] Care Team Providers Care Construction Scheduler Name Role Phone Domi Altamirano NP Unavailable [phone] Hiren Horton MD Primary Care Provider [phone] Domi Altamirano PRODUCT SAFETY MANAGER Unavailable [phone] Domi Altamirano NP Unavailable [phone] Unallocated, Noms Provider Primary Care Provi taylor Encounter Details Date Type Department Care Team (Late st Contact Info) Description 12/17/2023 Orders Only [facility] [address] [place] [address] Domi Altamirano, PRODUCT SAFETY MANAGER [address] [facility] [place] [address] Social History Tobacco Use Types Packs/Day Years [...] How often do you attend yazidi or amish serv ices? Never 10/08/2023 Do you belong [...] on filedocumented in this encounter Care Teams Construction Scheduler Relationship Specialty Start Date End Date Hiren Horton MD PCP - General Family Medicine 07/26/23 10/13/24 Domi Altamirano NP [address] [place] [address] PCP - [employer] 08/24/24 Unallocated, Noms MD [address] [place] [address] PCP - General Family Medicine 10/14/24 Domi Altamirano NP Nurse Practitioner Family Medicine 03/26/22 10/13/24 Domi Altamirano NP Nurse Practitioner Family Medicine 07/26/23 10/13/24 documented as of this encounter
--- OUTSIDE RECORDS SUMMARY | 2025-01-09 11:53 | XMS_ITS | Encounter Summary ---
Demographics Address [address] [place] [address] Mobile Phone Home Phone Work Phone Email Address Preferred Language en Marital Status Hindu Affiliation Unknown Race White Ethnic Group Not or Lati no Author Organization [facility] Address [address] [place] [address] Care Team Providers Care Supervisor Alteration Workroom Name Role Phone Domi Altamirano NP Unavailable [phone] Hiren Horton MD Primary Care Provider [phone] Domi Altamirano NP Unavailable [phone] Domi Altamirano NP Unavailable [phone] Unallocated, Noms Provider Primary Care Provi taylor Encounter Details Date Type Department Care Team (Late st Contact Info) Description 09/25/2023 Clinisync Result Encounter [facility] External Department Unsolicited Domi Altamirano THIRD RAIL INSTALLER [address] [place] [address] Social History Tobacco Use Types Packs/Day Years [...] EDT Narrative 09/25/2023 3:20 [place] [address] Mammography Report Signed Patient: JAIME MERRILL MR#: [id number] : 1975 Acct:[id number] Age/Sex: 48 / F ADM Date: 09/24/23 Loc: MAMMO Attending Dr: Domi Altamirano NP Ordering Physician: Domi Altamirano NP Results: Date of Service: 09/24/23 Follow Up: Procedure(s): MM tomosynthesis screening BI Accession Number(s): [id number] cc: Domi Altamirano NP Patient Name: JAIME MERRILL MR#: [id number] : 1975 Exam Date: 09/24/2023 Ordering Doctor: [...] age 63. LOCATION: The [facility] BREAST COMPOSITION: The breasts are heterogeneously [...] Signed By: 09/25/23 1520 DD/ 1519 TD/TT: Computer Repair Technician: Procedure Note Radiology, Radiologist, MD - 09/25/2023 [place] [address] Mammography Report Signed Patient: JAIME MERRILL KMR#: [id number] : 1975Acct:[id number] Age/Sex: 48 / FADM Date: 09/24/23 Loc: MAMMO Attending Dr: Domi Altamirano THIRD RAIL INSTALLER Ordering Physician: Domi Altamirano NPResults: Date of Service: 09/24/23Follow Up: Procedure(s): MM tomosynthesis screening BI Accession Number(s): [id number] cc: Domi Altamirano THIRD RAIL INSTALLER Patient Name: JAIME MERRILL MR#: [id number] : 1975 Exam Date: 09/24/2023 Ordering Doctor: ARELY ALTAMIRANO FUEL DISTRIBUTION SYSTEM OPERATOR RADIOLOGY REPORT PROCEDURE: MM TOMOSYNTHESIS SCREENING [...] age 63. LOCATION: The [facility] BREAST COMPOSITION: The breasts are heterogeneously [...] M.D. Signed By:09/25/23 1520 DD/ 1519 TD/TT: Computer Repair Technician: Domi Altamirano NP [facility] Final Result documented in this encounter Visit Diagnoses Not on filedocumented in this encounter Care Teams Supervisor Alteration Workroom Relationship Specialty Start Date End Date Hiren Horton MD PCP - General Family Medicine 07/26/23 10/13/24 Domi Altamirano NP [address] [place] [address] PCP - [facility] 08/24/24 Unallocated, Noms Provider, [address] [place] [address] PCP - General Family Medicine 10/14/24 Domi Altamirano NP Nurse Practitioner Family Medicine 03/26/22 10/13/24 Domi Altamirano NP Nurse Practitioner Family Medicine 07/26/23 10/13/24 documented as of this encounter
--- OUTSIDE RECORDS SUMMARY | 2025-01-09 11:53 | XMS_ITS | Encounter Summary ---
Demographics Address [address] [facility] [address] [place] [address] Mobile Phone Home Phone Work Phone Email Address Preferred Language en Marital Status Mormonism Affiliation Unknown Race White Ethnic Group Not or Lati no Author Organization [facility] Address [address] [place] [address] Care Team Providers Care Survey Chief Name Role Phone Domi Altamirano CEMENT TRUCK LOADER Unavailable [phone] Hiren Horton MD Primary Care Provider [phone] Domi Altamirano CEMENT TRUCK LOADER Unavailable [phone] Domi Altamirano NP Unavailable [phone] Unallocated, Noms Provider Primary Care Provi taylor Encounter Details Date Type Department Care Team (Late st Contact Info) Description 09/25/2023 Orders Only [facility] [address] [place] [id number] Carolyn Seven, OD [address] [id number] Social History Tobacco Use Types Packs/Day Years [...] Modality Radiographic Carmen ging us Domi Altamirano CEMENT TRUCK LOADER IMG XR PROCEDURES Final Result * Diabetic Retinopathy Screening - OU - Both Eyes (09/25/2023 8:54 AM EDT) Anatomical Region Laterality Modality Head Other us Seven Carolyn OD OPHTH PHOTOGRAPHY Final Result documented in this encounter Visit Diagnoses Not on filedocumented in this encounter Care Teams Survey Chief Relationship Specialty Start Date End Date Hiren Horton MD PCP - General Family Medicine 07/26/23 10/13/24 Domi Altamirano NP [address] [place] [address] PCP - [facility] 08/24/24 Unallocated, Noms MD Mariaelena [address] [place] [address] PCP - General Family Medicine 10/14/24 Domi Altamirano NP Nurse Practitioner Family Medicine 03/26/22 10/13/24 Domi Altamirano NP Nurse Practitioner Family Medicine 07/26/23 10/13/24 documented as of this encounter
--- OUTSIDE RECORDS SUMMARY | 2025-01-09 11:53 | XMS_ITS | Clinical Summary ---
Demographics Address [address] [place] [address] Mobile Phone Home Phone Work Phone Email Address Preferred Language en Marital Status Jewish Affiliation Unknown Race White Ethnic Group Not or Lati no Author Organization [facility] Address [address] [place] [address] Care Team Providers Care Asbestos Textile Supervisor Name Role Phone Domi Altamirano MIGUEL A Unavailable [phone] Unallocated, Noms Provider Primary Care Provi taylor Allergies Active Allergy Reactions Criticality Noted Date Comments Erythromycin Unknown 02/21/2023 Latex Unknown 02/21/2023 Methylprednisolone Unknown 02/21/2023 Methylprednisolone Sodium Succ Anaphylaxis High 12/0 08/2016 Tramadol 07/26/2023 Nmitqyhrntd-Fkqwpopth-Ysmptp Shortness of breath High 02/21/2023 Medications cetirizine [...] 07/22/2024 Bronchitis 12/11/2023 04/14/2024 Overview (01/10/2024): [facility] [id number] Exp: 03/25/24 Lot # [id number] Assessment & Plan (01/10/2024 1:18 PM EDT): No wheezing noted, multiple allergies and has been on z pack as well as doxy and steroids Will order health trax Possible allergy trigger?? Samples of vandana 180mg 1 po daily, and #2 samples Lot [id number], exp 08/18 Airsupra sample #1; [id number], exp 04/2024 Astepro allergy nasal spray 2 spray each nostril #2 samples lot [id number], exp 10/17 Assessment & Plan (12/11/2023 11:36 AM EDT): Does not currently have insurance, does not want tested for COVID and her mruillo for paxlovid w good RX >1000.00 While [...] AM EDT): Tremayne samples X3 given Lot: [id number], exp 12/18 Assessment & Plan (10/15/2023 7:48 PM EDT): Continue with current meds no changes Major depression in partial remission 07/26/2023 04/14/2024 Encounters Date Type Department Care Team Description 10/15/2024 External Result Encounter [facility] External Department Unsolicited Jose M Mercedes, DO 10/14/2024 External Result Encounter [facility] External Department Unsolicited Jose M Mercedes, DO 10/14/2024 External Result Encounter [facility] External Department Unsolicited Jose M Mercedes DO 10/14/2024 External Result Encounter [facility] External Department Unsolicited Jose M Mercedes DO 10/14/2024 External Result Encounter [facility] External Department Unsolicited Jose M Mercedes DO from Last 3 Months Family History Medical [...] How often do you attend restorationism or sikh serv ices? Never 10/08/2023 Do you belong [...] medical care, and heating? Very hard 10/08/2023 [facility] Occupat ional Health - Occupational Stress [...] 04/2023, 06/03/2021 Diabetes: Hemoglobin A1C 01/21/2025 07/22/2024, 04/2023 Diabetes: Retinopathy Screening 09/24/2025 Pap Smear 10/02/2026 10/03/2023, 10/2021, 07/14/2009, Additional history exists Colorectal Cancer Screening 10/08/2026 FIT-DNA 10/08/2026 10/09/2023 Cervical Cancer Screening 10/02/2028 HPV/Cotest 10/02/2028 10/03/2023 Influenza Vaccine Discontinued Procedures Procedure Name Priority Date/Time Associated Diagnosis Comments FIBRINOGEN ACTIVITY, CLAUSS Routine 10/15/2024 5:53 AM EDT PROTEIN ELECTRO, RANDOM URINE Routine 10/14/2024 5:00 PM EDT IMMUNOFIXATION,SERUM ([facility] Routine 10/14/2024 12:20 PM EDT PN PANEL TO NEOGENOMIC Routine 10/14/2024 12:20 PM EDT FREE K+L LT CHAINS, QN, S Routine 10/14/2024 12:20 PM EDT PROTEIN ELECTROPHORESIS, SERUM Routine 10/14/2024 12:20 PM EDT HAPTOGLOBIN Routine 10/14/2024 12:20 PM EDT POCT GLYCOSYLATED HEMOGLOBIN (HGB A1C) Routine [...] - 393 mg/dL 10/15/2024 7:20 AM EDT [facility] Comment: A hematocrit value greater than 55% may lead to inaccurate results in coagulation testing. Patients having hematocrit values >55% require a special collection tube for coagulation studies. Please contact the laboratory at [phone] for redraw instructions. Other Topography unknown / Unknown 10/15/2024 5:53 AM EDT 10/15/2024 6:15 AM EDT Jose M Mercedes DO LAB BLOOD ORDERABLES Chloe l Result [facility] [address] [place] [address], [facility] [address] [place] [address] * PROTEIN ELECTRO, RANDOM URINE (10/14/2024 5:00 PM EDT) PROTEIN, TOTAL, URINE 19.9 Not Estab. mg/dL 10/18/2024 4:08 PM EDT [facility] ALBUMIN, URINE 6.9 . % 10/18/2024 4:08 PM EDT [facility] OZNTU-2-CDBSOWTZ, URINE 2.9 . % 10/18/2024 4:08 PM EDT [facility] QGKXJ-5-CQKZCQRR, URINE 33.9 . % 10/18/2024 4:08 PM EDT [facility] BETA GLOBULIN, URINE 29.0 . % 10/18/2024 4:08 PM EDT [facility] GAMMA GLOBULIN, URINE 27.3 . % 10/18/2024 4:08 PM EDT [facility] M-SPIKE % 5.0 Not Observed % 10/18/2024 4:08 PM EDT [facility] Comment:Alpha 2 and beta reg ions appear asymmetrical. PLEASE NOTE: Comment . 10/18/2024 4:08 PM EDT [facility] Comment: Protein electrophoresis scan will follow via computer, mail, or scheduling clerk delivery. Performed at: [address] [id number] Tailer Off: Abel Finnegan PhD, Phone: [phone] Other 10/14/2024 5:00 PM EDT 10/14/2024 5:08 PM EDT Jose M Mercedes DO LAB BLOOD ORDERABLES Chloe l Result Performing Organization Address City/[facility]/ZIP Co de Phone Number [facility] [address] [place] [address], * [facility] PANEL TO NEOGENOMIC (10/14/2024 12:20 PM EDT) [facility] PANEL TO NEOGENOMIC 10/16/2024 8:38 AM EDT [facility] Comment:See report. Scanned copy available in EMR. Other Topography unknown / Unknown 10/14/2024 12:20 PM EDT 10/14/2024 12:30 PM EDT Jose M Mercedes DO LAB BLOOD ORDERABLES Chloe l Result Performing Organization Address City/[facility]/ZIP Co de Phone Number [facility] [address] [id number], [facility] [address] [place] [address] * FREE K+L LT CHAINS, QN, S (10/14/2024 12:20 PM EDT) FREE KAPPA LIGHT CHAINS, S 66.0 3.3 - 19.4 mg/L 10/15/2024 2:36 PM EDT [facility] FREE LAMBDA LIGHT CHAINS, S 63.7 5.7 - 26.3 mg/L 10/15/2024 2:36 PM EDT [facility] KAPPA/LAMBDA RATIO, S 1.04 0.26 - 1.65 10/15/2024 2:36 PM EDT [facility] Comment: Performed at: [address] [id number] Tailer Off: Abel Finnegan PhD, Phone: [phone] Other Topography unknown / Unknown 10/14/2024 12:20 PM EDT 10/14/2024 12:30 PM EDT Thor [facility] - 10/16/2024 4:08 PM EDT OK TO DO IN THE AM FOR MORNING ROUNDS, PER SOPHIE DAVIS PLS.@ [facility] DATE was changed from 10/14/24 to 10/15/24 us Jose M Mercedes DO LAB BLOOD ORDERABLES Chloe l Result [facility] [address] [place] [address], * IMMUNOFIXATION,SERUM ([facility] [place]) (10/14/2024 12:20 PM EDT) [facility] IMMUNOFIXATION, SERUM Comment: . 10/16/2024 4:08 PM EDT [facility] Comment: Presence of monoclonal protein is unclear at this time. Suggest repeat in 3 to 6 months if clinically indicated. IMMUNOGLOBULIN G 980 586 - 1,602 mg/dL 10/16/2024 4:08 PM EDT [facility] IMMUNOGLOBULIN A, SERUM 397 87 - 352 mg/dL 10/16/2024 4:08 PM EDT [facility] IMMUNOGLOBULIN M, SERUM 166 26 - 217 mg/dL 10/16/2024 4:08 PM EDT [facility] Comment: Performed at: [address] [id number] Tailer Off: Abel Finnegan PhD, Phone: [phone] Other Topography unknown / Unknown 10/14/2024 12:20 PM EDT 10/14/2024 12:30 PM EDT Thor [facility] - 10/16/2024 4:08 PM EDT OK TO DO IN THE AM FOR MORNING ROUNDS, PER RN RYAN, PLS.@ [facility] DATE was changed from 10/14/24 to 10/15/24 Jose M Mercedes DO LAB BLOOD ORDERABLES Chloe bauman Result [facility] [address] [place] [address], * Protein electrophoresis, serum (10/14/2024 12:20 PM EDT) TOTAL PROTEIN, SERUM 6.3 6.0 - 8.5 g/dL 10/15/2024 1:08 PM EDT [facility] ALBUMIN, SERUM 1.8 2.9 - 4.4 g/dL 10/15/2024 1:08 PM EDT [facility] IXFVK-0-FTHXDILA 0.8 0.0 - 0.4 g/dL 10/15/2024 1:08 PM EDT [facility] LEOPO-5-EUWCNHKN 1.6 0.4 - 1.0 g/dL 10/15/2024 1:08 PM EDT [facility] BETA GLOBULIN 1.1 0.7 - 1.3 g/dL 10/15/2024 1:08 PM EDT [facility] GAMMA GLOBULIN 1.0 0.4 - 1.8 g/dL 10/15/2024 1:08 PM EDT [facility] M-SPIKE Comment: Not Observed g/dL 10/15/2024 1:08 PM EDT [facility] Comment: SPE shows asymmetrical beta. Suggest serum BIRDIE and free light chain analysis for further evaluation. GLOBULIN, TOTAL 4.5 2.2 - 3.9 g/dL 10/15/2024 1:08 PM EDT [facility] A/G RATIO 0.4 0.7 - 1.7 10/15/2024 1:08 PM EDT [facility] SPE-NOTE Comment . 10/15/2024 1:08 PM EDT [facility] Comment: Protein electrophoresis scan will follow via computer, mail, or scheduling clerk delivery. Performed at: [facility] [id number] Tailer Off: Abel Finnegan PhD, Phone: [phone] Other Topography unknown / Unknown 10/14/2024 12:20 PM EDT 10/14/2024 12:30 PM EDT [facility] 10/16/2024 4:08 PM EDT OK TO DO IN THE AM FOR MORNING ROUNDS, PER SOPHIE DAVIS, PLS.@ [facility] DATE was changed from 10/14/24 to 10/15/24 Jose M Mercedes DO LAB BLOOD ORDERABLES Chloe l Result Performing Organization Address City/[facility]/[place] [address], * (ABNORMAL) Haptoglobin (10/14/2024 12:20 PM EDT) [facility] HAPTOGLOBIN >400(H) 44 - 215 mg/dL 10/14/2024 1:34 PM EDT [facility] Other Topography unknown / Unknown 10/14/2024 12:20 PM EDT 10/14/2024 12:30 PM EDT Jose M Mercedes DO LAB BLOOD ORDERABLES Chloe l Result Performing Organization Address City/[facility]/[place] [address], [address] [phone] * POCT glycosylated hemoglobin (Hb A1C) docked device (07/22/2024 8:47 AM EDT) Pathologist [facility] Hemoglobin A1C 5.6 Blood Venous blood specimen / Unknown 07/22/2024 8:47 AM EDT Domi Altamirano NP POINT OF CARE TEST ENTER/EDIT O RDERABLES Final Result * Cologuard?? colon cancer screening (10/09/2023 1:30 PM EDT) NONINV COLON CA DNA+OCC BLD SCRN STL-IMP Negative Negative 10/21/2023 5:33 PM EDT [facility] (CLIA #:[id number]) Comment: NEGATIVE TEST RESULT. A negative Cologuard [...] (Ousmane Buitrago al, N Engl J Med 2014;370(14):4900-6679) The normal value (reference range) for this assay is negative. COLOGUARD RE-SCREENING RECOMMENDATION: Periodic colorectal cancer screening is an important part of preventive healthcare for asymptomatic individuals at average risk for colorectal cancer. Following a negative Cologuard result, the [place] [employer] Society and U.S. Multi-Society Task Force screening guidelines recommend a Cologuard re-screening interval of 3 years. References: [place] [employer] Guideline for Colorectal Cancer Screening: https://www.cancer.org/cancer/crbfr-lrdoud-vdpppn/sllywpkzw-ykpiwuubt-xaxvmwi/ac s-rec ommendations.html.; Jonathan DK, John CR, Ciro AdamsK, Colorectal Cancer Screening: Recommendations for Physicians and Patients from the U.S. Multi-Society Task Force on Colorectal Cancer Screening , Am J Gastroenterology 2017; 112:5184-8439. TEST DESCRIPTION: Composite algorithmic analysis of stool [...] (Ousmane Buitrago al, N Engl J Med 2014;370(14):1267-4552.) Cologuard may produce a false negative or false positive result (no colorectal cancer or precancerous polyp present at colonoscopy follow up). A negative Cologuard test result does not guarantee the absence of CRC or advanced adenoma (pre-cancer). The current Cologuard screening interval is every 3 years. ([place] [employer] Society and U.S. Multi-Society Task Force). Cologuard performance data in a 10,000 patient pivotal study using colonoscopy as the reference method can be accessed at the following location: www.[place] [place]/results. Additional description of the Cologuard test process, warnings and precautions can be found at www.cologuard.com. Stool specimen (specimen) 10/09/2023 1:30 PM EDT 10/11/2023 8:01 AM EDT Domi Altamirano COLD MOLDING PRESS OPERATOR LAB MOLECULAR DIAGNOSTICS ORDER DEANDRE Final Result [facility] (CLIA #:[id number]) [address] [address], [place] (CLIA #:[id number]) [address] [address] * MM TOMOSYNTHESIS SCREENING BI (09/25/2023 3:19 PM EDT) Anatomical Region Laterality Modality Other 09/25/2023 3:19 PM EDT Narrative 09/25/2023 3:20 [place] [address] Mammography Report Signed Patient: RYLEE BURTON MR#: [id number] : 1975 Acct:[id number] Age/Sex: 48 / F ADM Date: 09/24/23 Loc: MAMMO Attending Dr: Domi Altamirano NP Ordering Physician: Domi Altamirano NP Results: Date of Service: 09/24/23 Follow Up: Procedure(s): MM tomosynthesis screening BI Accession Number(s): [id number] cc: Domi Altamirano NP Patient Name: RYLEE BURTON MR#: [id number] : 1975 Exam Date: 09/24/2023 Ordering Doctor: [...] lymphoma cancer at age 63. LOCATION: [facility] BREAST COMPOSITION: The breasts are heterogeneously [...] Signed By: 09/25/23 1520 DD/ 1519 TD/TT: Operations Support Specialist: Procedure Note Radiology, Radiologist, MD - 09/25/2023 [place] [address] Mammography Report Signed Patient: RYLEE BURTON KMR#: [id number] : 1975Acct:[id number] Age/Sex: 48 / FADM Date: 09/24/23 Loc: MAMMO Attending Dr: Domi Altamirano NP Ordering Physician: Domi Altamirano NPResults: Date of Service: 09/24/23Follow Up: Procedure(s): MM tomosynthesis screening BI Accession Number(s): [id number] cc: Domi Altamirano NP Patient Name: RYLEE BURTON MR#: [id number] : 1975 Exam Date: 09/24/2023 Ordering Doctor: [...] lymphoma cancer at age 63. LOCATION: [facility] BREAST COMPOSITION: The breasts are heterogeneously [...] M.D. Signed By:09/25/23 1520 DD/ 1519 TD/TT: Operations Support Specialist: Domi Altamirano NP [facility] Final Result [...] Billing Address Personal/Family Self 1975 [address] [place] [address] [employer]BS Care Teams Asbestos Textile Supervisor Relationship Specialty Start Date End Date Domi Altamirano NP [address] [place] [address] PCP - [facility] [employer] 08/24/24 Unallocated, Noms Provider, [address] [place] [address] PCP - General Family Medicine 10/14/24
--- OUTSIDE RECORDS SUMMARY | 2025-01-09 11:53 | XMS_ITS | Clinical Summary ---
Demographics Address [address] [place] [address] Mobile Phone Home Phone Mobile Phone Preferred Language Greenlandic Marital Status Single Confucianist Affiliation Unknown Race White Ethnic Group Not or Lati no Author Organization My 1% tem Address [id number] [address] [place] [address] Care Team Providers Care Advice Clerk Name Role Phone No Pcp, No Pcp [...] [facility] [address] [place] [address] MPN (myeloproliferative neoplasm) (CMS-HCC); Lymphadenopathy [...] specimen type ThinPrep 10/04/2023 4:33 AM EDT [facility] Hpv 16 Negative Negative^N egative 10/04/2023 1:07 PM EDT [facility] Hpv 18 Negative Negative^N egative 10/04/2023 1:07 PM EDT [facility] Other high risk hpv Negative Negative^N egative 10/04/2023 1:07 PM EDT [facility] Comment: HPV types 31,33,35,39,45,52,56,58,59,66 and 68 DNA were undetectable. THINP 10/03/2023 4:33 AM EDT 10/03/2023 4:38 AM EDT us Domi Ledezma RESEARCH ASST-KINESIOLOGY PROFESSOR LAB BLOOD ORDERABLES Fin al Result TAMMY [facility] [address] [facility], [place] [address] [facility] [address] [facility] [place] [address] from Last 3 Months or Most Recently Relevant to Health Maintenance Insurance [facility] Care Teams Advice Clerk Relationship Specialty Start Date End Date No Pcp, [place] [address] PCP - General Family Medicine 05/16/17
--- OUTSIDE RECORDS SUMMARY | 2025-01-09 11:53 | XMS_ITS | Encounter Summary ---
Demographics Address [address] [facility] [address] [place] [address] Mobile Phone Home Phone Work Phone Email Address Preferred Language en Marital Status Sikh Affiliation Unknown Race White Ethnic Group Not or Lati no Author Organization [facility] Address [address] [place] [address] Care Team Providers Care Client Sales And Service Officer Name Role Phone Domi Altamirano NP Unavailable [phone] Hiren Horton MD Primary Care Provider Domi Altamirano INDUSTRIAL FABRIC CUTTER Unavailable [phone] Domi Altamirano NP Unavailable [phone] Unallocated, Noms Provider Primary Care Provi taylor Encounter Details Date Type Department Care Team (Late st Contact Info) Description 12/18/2023 Orders Only [facility] [address] [place] [address] Domi Altamirano, INDUSTRIAL FABRIC CUTTER [address] [facility] [address] Social History Tobacco Use Types Packs/Day Years [...] How often do you attend jainism or scientologist serv ices? Never 10/08/2023 Do you belong [...] any time in the past 12 m [facility], were you homeless or living [...] on filedocumented in this encounter Care Teams Client Sales And Service Officer Relationship Specialty Start Date End Date Hiren Horton MD PCP - General Family Medicine 07/26/23 10/13/24 Domi Altamirano NP [address] [place] [address] PCP - [place] [facility] 08/24/24 Unallocated, Noms MD Mariaelena [address] [place] [address] PCP - General Family Medicine 10/14/24 Domi Altamirano NP Nurse Practitioner Family Medicine 03/26/22 10/13/24 Domi Altamirano NP Nurse Practitioner Family Medicine 07/26/23 10/13/24 documented as of this encounter
--- OUTSIDE RECORDS SUMMARY | 2025-01-09 11:53 | XMS_ITS | Encounter Summary ---
Demographics Address [address] [facility] [address] [place] [address] Mobile Phone Home Phone Work Phone Email Address Preferred Language en Marital Status Gnosticist Affiliation Unknown Race White Ethnic Group Not or Lati no Author Organization [facility] Address [address] [facility] [place] [address] Care Team Providers Care Visiting Housekeeper Name Role Phone Domi Altamirano HAT TRIMMER Unavailable [phone] Hiren Horton MD Primary Care Provider [phone] Domi Altamirano HAT TRIMMER Unavailable [phone] Domi Altamirano NP Unavailable [phone] Unallocated, Noms Provider Primary Care Provi taylor Encounter Details Date Type Department Care Team (Late st Contact Info) Description 12/31/2023 Orders Only [facility] [address] [facility] [place] [address] Abran West MD [address] [place], [place] [id number] Social History Tobacco Use Types Packs/Day Years [...] How often do you attend yazdanism or evangelical serv ices? Never 10/08/2023 Do [...] medical care, and heating? Very hard 10/08/2023 [facility] Occupat ional Health - Occupational Stress [...] on filedocumented in this encounter Care Teams Visiting Housekeeper Relationship Specialty Start Date End Date Hiren Horton MD PCP - General Family Medicine 07/26/23 10/13/24 Domi Altamirano NP [address] [place] [address] PCP - [employer] 08/24/24 Unallocated, Noms MD Mariaelena [address] [place] [address] PCP - General Family Medicine 10/14/24 Domi Altamirano NP Nurse Practitioner Family Medicine 03/26/22 10/13/24 Domi Altamirano NP Nurse Practitioner Family Medicine 07/26/23 10/13/24 documented as of this encounter
--- OUTSIDE RECORDS SUMMARY | 2025-01-09 11:53 | XMS_ITS | Encounter Summary ---
Author Organization [facility] Address [address] [place] [address] Care Team Providers Care Press Hand Supervisor Name Role Phone Domi Altamirano WATER TAXI BOAT MATE Unavailable [phone] Hiren Horton MD Primary Care Provider [phone] Domi Altamirano WATER TAXI BOAT MATE Unavailable [phone] Domi Altamirano NP Unavailable [phone] Unallocated, Noms Provider Primary Care Provi taylor Encounter Details Date Type Department Care Team (Late st Contact Info) Description 10/03/2023 Orders Only [facility] [address] [facility] [place] [place] [address] Orly Rushing MD [address] [place] [address] Social History Tobacco Use Types [...] on filedocumented in this encounter Care Teams Press Hand Supervisor Relationship Specialty Start Date End Date Hiren Horton MD PCP - General Family Medicine 07/26/23 10/13/24 Domi Altamirano NP [address] [place] [address] PCP - [facility] 08/24/24 Unallocated, Noms Provider, [address] [place] [address] PCP - General Family Medicine 10/14/24 Domi Altamirano NP Nurse Practitioner Family Medicine 03/26/22 10/13/24 Domi Altamirano NP Nurse Practitioner Family Medicine 07/26/23 10/13/24 documented as of this encounter
--- OUTSIDE RECORDS SUMMARY | 2025-01-09 11:53 | XMS_ITS | Encounter Summary ---
Demographics Address [address] [facility] [address] [place] [address] Mobile Phone Home Phone Work Phone Email Address Preferred Language en Marital Status Confucianism Affiliation Unknown Race White Ethnic Group Not or Lati no Author Organization [facility] Address [address] [place] [address] Care Team Providers Care Boat Motor Mechanic Name Role Phone oDmi Altamirano NP Unavailable [phone] Hiren Horton MD Primary Care Provider Domi Altamirano ROD PILER Unavailable [phone] Domi Altamirano NP Unavailable [phone] Unallocated, Noms Provider Primary Care Provi taylor Encounter Details Date Type Department Care Team (Late st Contact Info) Description 09/16/2024 Abstract [facility] [address] [place] [address] Domi Altamirano, ROD PILER [address] [place] [address] Social History Tobacco Use Types Packs/Day Years [...] How often do you attend presybeterian or quaker serv ices? Never 10/08/2023 Do you belong [...] medical care, and heating? Very hard 10/08/2023 [facility] [place] [facility] Occupat ional Health - Occupational Stress [...] on filedocumented in this encounter Care Teams Boat Motor Mechanic Relationship Specialty Start Date End Date Hiren Horton MD PCP - General Family Medicine 07/26/23 10/13/24 Domi Altamirano NP [address] [place] [address] PCP - [facility] 08/24/24 Unallocated, Noms MD Mariaelena [address] [place] [address] PCP - General Family Medicine 10/14/24 Domi Altamirano NP Nurse Practitioner Family Medicine 03/26/22 10/13/24 Domi Altamirano NP Nurse Practitioner Family Medicine 07/26/23 10/13/24 documented as of this encounter
[2025-01-09 13:12] LABS: Hematocrit 32.0 % (36.0-48.0); Hemoglobin 9.5 g/dL (12.0-16.0); Mean Corpuscular HGB Conc 29.7 g/dL (29.9-35.2); Mean Corpuscular Hemoglobin 27.4 pg (26.7-34.0); Mean Corpuscular Volume 92.2 fL (81.0-99.0); Platelet Count 818 10^3/uL (150-450); Red Blood Count 3.47 10^6/uL (4.20-5.40); White Blood Count 10.8 10^3/uL (4.0-11.0)
[2025-01-09 13:33] LABS: Alanine Aminotransferase 16 U/L (14-59); Albumin Globulin Ratio 0.5; Albumin Level 2.7 g/dL (3.4-5.0); Alkaline Phosphatase 233 U/L (46-116); Anion Gap 13.2; Aspartate Amino Transferase 12 U/L (15-37); Blood Urea Nitrogen 12.0 mg/dL (7.0-18.0); Calcium 9.9 mg/dL (8.5-10.1); Carbon Dioxide 26.6 mmol/L (21.0-32.0); Chloride 103 mmol/L (98-107); Estimated GFR (African America >60 (>=60 mL/min/1.73m^2); Estimated GFR (Non-African Ame >60 (>=60 mL/min/1.73m^2); Globulin 5.7 g/dL; Glucose 112 mg/dL (74-106); Potassium 3.8 mmol/L (3.5-5.1); Sodium 139 mmol/L (136-145); Total Protein 8.4 g/dL (6.4-8.2)
[2025-01-09 14:47] LABS: Basophils Abs Manual 0.00 10^3/uL (0.00-0.10); Basophils Percent Manual 0.0 % (0.2-2.0); Lymphocytes Absolute Manual 4.42 10^3/uL (1.20-3.80); Lymphocytes Percent Manual 41.0 % (20.5-60.0); Monocytes Absolute Manual 0.64 10^3/uL (0.30-0.80); Monocytes Percent Manual 6.0 % (1.7-12.0); Segmented Neut Absolute Manual 5.50 10^3/uL (1.4-6.5); Segmented Neutrophils % Manual 51.0 (43.0-75.0)
[2025-01-09 14:48] LABS: Eosinophils Absolute Manual 0.21 10^3/uL (0.00-0.70); Eosinophils Percent Manual 2.0 % (0.9-7.0)
== END 2025-01-09 11:48 | disposition home or self-care (01) ==
LOC: LAB 11:50
PROVIDERS: PCP Family Medicine
DX: D75.839 Thrombocytosis, unspecified (principal); R59.1 Generalized enlarged lymph nodes; G89.3 Neoplasm related pain (acute) (chronic)
CPT/HCPCS: 36415; 80053; 85007; 85027